=== PATIENT | female | born 1975 | race Two or more races ===

== ENCOUNTER 2016-10-12 17:23 | Emergency (ER) | payer MEDICAID ==
[~2016-10-12] VITALS: Ht 152.4 cm; Wt 48.5 kg
[~2016-10-12 17:23] MED LIST: ATORVASTATIN CA10 MG ORAL; BACTRIM DS TAB1 EAC1 ORAL; COLACE100 MG ORAL; FEOSOL325 MG ORAL; GLUCAGON W/DILUE1 MG *; HUMALOG100 UNIT/4 SUBQ; HUMULIN R100 UNIT/1 SUBQ; INSULIN; LEVEMIR FL100 UNIT/1 SQ; LEVEMIR FL100 UNIT/1 SUBQ; LEVEMIR100 UNIT/1 SUBQ; LEVOTHYROXINE112 MCG ORAL; LEVOTHYROXINE75 MCG ORAL; NOVOLIN N100 UNIT/1 SUBQ; NOVOLIN R100 UNIT/1 SUBQ; NOVOLOG100 UNIT/3 SUBQ; NOVOLOG100 UNITS1 SUBQ; ORTHO NOVUM ORAL; PRENATAL FORMU1 EAC2 ORAL; YAZ 28 TABLET1 EACH ORAL; insulin n SUBQ
[2016-10-12] MEDS ORDERED: LANTUS SOL100 UNIT/1 SUBQ (17:36)
[2016-10-12 18:03] LABS: APPEARANCE,URINE CLOUDY; KETONES,URINE NEGATIVE (NEGATIVE); LEUKOCYTE ESTERASE ,URINE NEGATIVE (NEGATIVE); NITRITE,URINE NEGATIVE (NEGATIVE); PH,URINE 6 (4.5-8.0); PROTEIN,URINE 3+ (NEGATIVE); UROBILINOGEN,URINE NORMAL MG/DL (0.0-1.0)
[2016-10-12 18:05] LABS: BACTERIA,URINE OCCASIONAL /HPF; RBC,URINE TNTC /HPF (0 - 2); SQUAMOUS EPITHELIAL CELL,UR OCCASIONAL /LPF (NONE/OCC); WBC,URINE 0 /HPF (0 - 2)
[2016-10-12] MEDS ORDERED: IBUPROFEN600 MG ORAL (19:48)
[2016-10-12 19:57] VITALS: BP 112/73
--- NOTE | 2016-10-12 22:58 | Emergency Room Report ---
History of Present Illness General Chief Complaint: Female Urogenital Problems Present Illness HPI The pt is a 41 yo F presenting for vaginal bleeding which occurred 4 days prior and has been continuous and heavy. The pt states her LNMP was 3 months prior which is not normal for her. The pt states she has saturated 7 sanitary pads with blood daily. Pt also reports 7/10 dull ache to lower abdomen. Pt denies other vaginal DC or passing of tissue. The pt denies dysuria, flank pain , N, V, F, chills, LANE, dizziness, fatigue, CP, SOB Allergies: Coded Allergies: No Known Allergies (Verified , 09/02/07) Patient History Past Medical History: see triage record Pertinent Family History: none Last Menstrual Period: 06/2016 : 5 Para: 4 Reviewed Nursing Documentation: PMH: Agreed, PSxH: Agreed Nursing Documentation-PMH Hx Cardiac Problems: No Hx Hypertension: Yes Hx Diabetes: Yes Hx Cancer: No Hx Gastrointestinal Problems: No Hx Neurological Problems: No Hx Cerebrovascular Accident: No Hx Transient Ischemic Attacks: No Hx Dementia: No Hx Alzheimer's Disease: No Hx Parkinson's Disease: No Hx Meningitis: No Hx Encephalitis: No Hx Seizures: Yes Hx Epilepsy: No Hx Multiple Sclerosis: No Hx Cerebral Palsy: No Hx Amyotrophic Lat Sclerosis: No Hx Guillian-[place] Syndrome: No Hx Paralysis: No Hx Peripheral Neuropathy: No Hx Spinal Cord Injury: No Hx Head Trauma: Yes - Fell in the shower and hit her head one day prior to admission Hx Traumatic Brain Injury: No Hx Memory Loss: No Hx Concentration Difficulty: Yes Hx Speech Problem: No Hx Tremors: No Hx Vertigo: No Hx Dizziness: Yes Hx Syncope: No Hx Headaches: Yes Hx Aphasia: No Hx Dysphasia: No Hx Numbness: No Hx Weakness: No Hx Fatigue: Yes Hx Neurologic Surgery: No Hx Brain Shunt: No Review of Systems All Other Systems: negative except mentioned in HPI Physical Exam Vital Signs Date Time Temp Pulse Resp B/P Pulse Ox O2 Delivery O2 Flow Rate FiO2 10/12/16 17:27 98.2 85 16 108/51 100 Room Air Sp02 EP Interpretation: reviewed, normal General Appearance: no apparent distress, alert, GCS 15, non-toxic Head: normocephalic, atraumatic Gastrointestinal: normal bowel sounds, soft, no mass, non-distended, no guarding, no rebound, tenderness - TTP over suprapubic region Musculoskeletal: back normal, gait/station normal, normal range of motion, non- tender Neurologic: alert, oriented x3, responsive, motor strength/tone normal, sensory intact, speech normal Psychiatric: judgement/insight normal, memory normal, mood/affect normal, no suicidal/homicidal ideation Skin: normal color, no rash, warm/dry, well hydrated Medical Decision Making PA Attestation Dr. juna is my supervising physician. Patient management was discussed with my supervising physician Diagnostic Impression: Primary Impression: DUB (dysfunctional uterine bleeding) ER Course The pt is a 41 yo F presenting for vaginal bleeding which occurred 4 days prior and has been continuous and heavy. Differential diagnosis considered but not limited to: UTI, vaginitis, pyelonephritis, PID, , uterine fibroids, ovarian cyst, DUB PE: Vitals WNL. NAD Abd: TTP over suprapubic region. Otherwise unremarkable. No CVA tenderness. UA shows TNTC RBC and 5+ occult blood. No signs of infection Pelvic US shows only blood which is likely consistent with menstruation. Pt DC'ed home with karishma and will FU with PMD and OBGYN. ER precautions given Laboratory Tests Test 10/12/16 17:41 Urine Color Red Urine Appearance Cloudy Urine pH 6 (4.5-8.0) Urine Specific [place] 1.010 (1.005-1.035) Urine Protein 3+ (NEGATIVE) H Urine Glucose (UA) 4+ (NEGATIVE) H Urine Ketones Negative (NEGATIVE) Urine Occult Blood 5+ (NEGATIVE) H Urine Nitrite Negative (NEGATIVE) Urine Bilirubin Negative (NEGATIVE) Urine Urobilinogen Normal MG/DL (0.0-1.0) Urine Leukocyte Esterase Negative (NEGATIVE) Urine RBC Tntc /HPF (0 - 2) H Urine WBC 0 /HPF (0 - 2) Urine Squamous Epithelial Cells Occasional /LPF Urine Bacteria Occasional /HPF (NONE) Urine HCG, Qualitative Negative Lab Results Impression UA shows TNTC RBC and 5+ occult blood CT/MRI/US Diagnostic Results CT/MRI/US Diagnostic Results : Imaging Test Ordered: Pelvic US Impression Moderate amount of blood within the endocervical canal. This may be part of menstruation. Followup and clinical correlation suggested. Last Vital Signs Date Time Temp Pulse Resp B/P Pulse Ox O2 Delivery O2 Flow Rate FiO2 10/12/16 19:57 82 12 112/73 100 Room Air 10/12/16 19:57 97.4 Status: improved Disposition: HOME, SELF-CARE Condition: Improved Scripts Ibuprofen* (MOTRIN*) 600 Mg Tablet 600 MG ORAL Q8H Y for For Pain, #30 TAB 0 Refills Prov: LAURA CURRAN 10/12/16 Patient Instructions: Dysfunctional Uterine Bleeding Additional Instructions: I discussed my findings with the patient. All questions and concerns have been answered. Treatment and medication compliance have been addressed. I advised the patient that they need to follow up with PMD in 3-5 days. Return to ED if symptoms worsen, new symptoms arise, or if needed for any reason. Patient verbalized understanding of discharge instructions. The patient will followup with ETHNOARCHAEOLOGIST as soon as possible LAURA CURRAN Oct 12, 2016 22:58
--- NOTE | 2016-10-13 14:35 | Diagnostic Imaging Report ---
Indication:Lower abdominal and pelvic pain Technique: Grayscale and duplex Doppler imaging of the pelvis performed utilizing a transabdominal scan and endovaginal scan. Comparison: None Findings: There is heterogeneous blood clot suspected within the endocervical canal. Patient is actively bleeding. The endometrium above this appears normal measuring about 6 mm. The uterus is normal in appearance and measures 9.4 x 5.3 x 5 CM. Both ovaries are demonstrated and show Doppler evidence of blood flow. There is a trace amount of free fluid. The right ovary measures 2.1 x 1.8 1.2 cm. Left ovary 1.6 x 1 x 1 cm. Impression: Moderate amount of blood within the endocervical canal. This may be part of menstruation. Followup and clinical correlation suggested.
== END 2016-10-12 20:03 | disposition home or self-care (01) ==
LOC: EMR 19:17
DX: N93.8 Other specified abnormal uterine and vaginal bleeding (principal); E11.9 Type 2 diabetes mellitus without complications; I10 Essential (primary) hypertension
CPT/HCPCS: 76830; 76856; 81003; 81025; 99283

== ENCOUNTER 2016-11-02 17:52 | Emergency (ER) | payer MEDICAID ==
[~2016-11-02] VITALS: Ht 157.5 cm; Wt 54.4 kg
[~2016-11-02 17:52] MED LIST changes: +IBUPROFEN600 MG ORAL; +LANTUS SOL100 UNIT/1 SUBQ
[2016-11-02 18:25] VITALS: BP 96/40
[2016-11-02 20:08] LABS: MEAN CORPUSCULAR HGB CONC 29.8 G/DL (32.0-36.0); MEAN CORPUSCULAR VOLUME 67 FL (80-99); MEAN PLATELET VOLUME 6.8 FL (6.5-10.1); PLATELET COUNT 245 K/UL (150-450); RED BLOOD COUNT 3.01 M/UL (4.20-5.40); WHITE BLOOD COUNT 4.2 K/UL (4.8-10.8)
[2016-11-02 20:33] LABS: ANION GAP 14 (5-15); CALCIUM 8.8 mg/dL (8.6-10.2); CARBON DIOXIDE 24 mEQ/L (20-30); CHLORIDE 101 mEQ/L (98-107); CREATININE 0.6 mg/dL (0.5-0.9); GLOMERULAR FILTRATION RATE > 60 mL/min (>60); HEMOLYSIS 27; POTASSIUM 4.2 mEQ/L (3.4-4.9); SODIUM 139 mEQ/L (135-145)
[2016-11-02 20:46] VITALS: BP 123/60
[2016-11-02 21:29] LABS: BAND NEUTROPHILS % (MANUAL) 1 % (0-8); BASOPHILS % (MANUAL) 3 % (0-2); EOSINOPHILS % (MANUAL) 4 % (0-3); LYMPHOCYTES % (MANUAL) 42 % (20-45); NEUTROPHILS % (MANUAL) 46 % (45-75); PLATELET ESTIMATE ADEQUATE; TOTAL CELLS COUNTED 100
[2016-11-02 21:30] LABS: PLATELET MORPHOLOGY NORMAL
[2016-11-02 21:31] LABS: ANISOCYTOSIS 2+; HYPOCHROMASIA 3+; POLYCHROMASIA 2+
[2016-11-02 21:32] LABS: TARGET CELLS OCCASIONAL
--- NOTE | 2016-11-02 21:52 | Emergency Room Report ---
History of Present Illness General Chief Complaint: General Complaint Source: Patient (HUMZA BOWEN D.O.) Present Illness HPI Patient present with complaints of general weakness She reports that she has had blood transfusion the past and was told by her clinic that she required another transfusion Denies any headache or visual changes Denies any short of breath denies any back or flank pain denies any vomiting or dysuria patient has had abnormal vaginal bleeding Which has been the source previously However her last menstrual cycle was 8 days ago (HUMZA BOWEN D.O.) Allergies: Coded Allergies: No Known Allergies (Verified , 09/02/07) Patient History Past Medical History: see triage record Pertinent Family History: none Reviewed Nursing Documentation: PMH: Agreed, PSxH: Agreed (HUMZA BOWEN D.O.) Nursing Documentation-PMH Past Medical History: No History, Except For Hx Cardiac Problems: No - Anemia Hx Hypertension: Yes Hx Diabetes: Yes Hx Cancer: No Hx Gastrointestinal Problems: No Hx Neurological Problems: No Hx Cerebrovascular Accident: No Hx Transient Ischemic Attacks: No Hx Dementia: No Hx Alzheimer's Disease: No Hx Parkinson's Disease: No Hx Meningitis: No Hx Encephalitis: No Hx Seizures: Yes Hx Epilepsy: No Hx Multiple Sclerosis: No Hx Cerebral Palsy: No Hx Amyotrophic Lat Sclerosis: No Hx Guillian-[place] Syndrome: No Hx Paralysis: No Hx Peripheral Neuropathy: No Hx Spinal Cord Injury: No Hx Head Trauma: Yes - Fell in the shower and hit her head one day prior to admission Hx Traumatic Brain Injury: No Hx Memory Loss: No Hx Concentration Difficulty: Yes Hx Speech Problem: No Hx Tremors: No Hx Vertigo: No Hx Dizziness: Yes Hx Syncope: No Hx Headaches: Yes Hx Aphasia: No Hx Dysphasia: No Hx Numbness: No Hx Weakness: No Hx Fatigue: Yes Hx Neurologic Surgery: No Hx Brain Shunt: No (HUMZA BOWEN D.O.) Review of Systems All Other Systems: negative except mentioned in HPI (HUMZA BOWEN D.O.) Physical Exam Vital Signs Date Time Temp Pulse Resp B/P Pulse Ox O2 Delivery O2 Flow Rate FiO2 11/02/16 18:15 98.2 85 14 95/55 100 Room Air Sp02 EP Interpretation: reviewed, normal General Appearance: well appearing, no apparent distress Head: normocephalic, atraumatic Eyes: bilateral eye EOMI, bilateral eye PERRL ENT: hearing grossly normal, normal pharynx, TMs + canals normal, uvula midline Neck: full range of motion, supple, no meningismus, no bony tend Respiratory: lungs clear, normal breath sounds, no rhonchi, no respiratory distress, no retraction, no accessory muscle use Cardiovascular #1: normal peripheral pulses, regular rate, rhythm, no edema, no gallop, no JVD, no murmur Gastrointestinal: normal bowel sounds, non tender, soft, no mass, no organomegaly, non-distended, no guarding, no hernia, no pulsatile mass, no rebound Musculoskeletal: normal inspection Neurologic: oriented x3, responsive, mold repair technician III-XII nml as tested, motor strength/ tone normal, sensory intact Psychiatric: mood/affect normal Skin: no rash, palpation normal, other - Patient has some noticeable pallor Lymphatic: normal inspection, no adenopathy (HUMZA BOWEN D.O.) Medical Decision Making Diagnostic Impression: Primary Impression: Anemia ER Course Patient had initial blood work obtained for evaluation Hemoglobin count is low at 6 Patient however is hemodynamically stable Heart rate and blood pressure appropriate Patient has had a recent hospitalization for this Therefore this time I do not feel that further inpatient workup was required patient was provided with 2 units of packed red blood cells here observed I did have a discussion with her regarding the need for close outpatient followup Labs Test 11/02/16 20:00 White Blood Count 4.2 K/UL (4.8-10.8) Red Blood Count 3.01 M/UL (4.20-5.40) Hemoglobin 6.0 G/DL (12.0-16.0) Hematocrit 20.2 % (37.0-47.0) Mean Corpuscular Volume 67 FL (80-99) Mean Corpuscular Hemoglobin 20.0 PG (27.0-31.0) Mean Corpuscular Hemoglobin Concent 29.8 G/DL (32.0-36.0) Red Cell Distribution Width 18.0 % (11.6-14.8) Platelet Count 245 K/UL (150-450) Mean Platelet Volume 6.8 FL (6.5-10.1) Neutrophils (%) (Auto) % (45.0-75.0) Lymphocytes (%) (Auto) % (20.0-45.0) Monocytes (%) (Auto) % (1.0-10.0) Eosinophils (%) (Auto) % (0.0-3.0) Basophils (%) (Auto) % (0.0-2.0) Differential Total Cells Counted 100 Neutrophils % (Manual) 46 % (45-75) Lymphocytes % (Manual) 42 % (20-45) Monocytes % (Manual) 4 % (1-10) Eosinophils % (Manual) 4 % (0-3) Basophils % (Manual) 3 % (0-2) Band Neutrophils 1 % (0-8) Platelet Estimate Adequate Platelet Morphology Normal Polychromasia 2+ Hypochromasia 3+ Anisocytosis 2+ Target Cells Occasional Sodium Level 139 mEQ/L (135-145) Potassium Level 4.2 mEQ/L (3.4-4.9) Chloride Level 101 mEQ/L (98-107) Carbon Dioxide Level 24 mEQ/L (20-30) Anion Gap 14 (5-15) Blood Urea Nitrogen 10 mg/dL (7-23) Creatinine 0.6 mg/dL (0.5-0.9) Estimat Glomerular Filtration Rate > 60 mL/min (>60) Glucose Level 108 mg/dL (74-106) Calcium Level 8.8 mg/dL (8.6-10.2) (HUMZA BOWEN D.O.) ER Course Patient signed out to me. She received 2 units of blood here. Vitals stable. We'll discharge home per Dr. Bowen's instruction. (DESTINEY JALLOH M.D.) Rhythm Strip Diag. Results EP Interpretation: yes Rate: 88 Rhythm: NSR, no PVC's, no ectopy (HUMZA BOWEN D.O.) Last Vital Signs Date Time Temp Pulse Resp B/P Pulse Ox O2 Delivery O2 Flow Rate FiO2 11/02/16 20:46 80 19 123/60 98 Room Air 11/02/16 18:15 98.2 Status: improved (HUMZA BOWEN D.O.) Status: improved (DESTINEY JALLOH M.D.) Disposition: HOME, SELF-CARE Condition: Improved Scripts Ferrous Sulfate* (FERROUS SULFATE*) 325 Mg Tablet 325 MG ORAL TWICE A DAY, #60 TAB 0 Refills Prov: DESTINEY JALLOH M.D. 11/03/16 Referrals: NOT CHOSEN IPA/,REFERRING (PCP) Additional Instructions: Patient is provided with the discharge instructions notified to follow up with primary doctor in the next 2-3 days otherwise return to the er with any worsening symptoms. HUMZA BOWEN D.O. Nov 02, 2016 21:52 DESTINEY JALLOH M.D. Nov 03, 2016 00:51
[2016-11-02 23:05] VITALS: BP 112/47
[2016-11-03] MEDS ORDERED: FERROUS SULFAT325 MG ORAL (00:51)
[2016-11-03 01:20] VITALS: BP 146/77
[2016-11-03 03:14] VITALS: BP 157/85
[2016-11-03 03:48] VITALS: BP 157/85
[2016-11-04 11:51] LABS: OTHERS PATHOLOGIST COMMENT
== END 2016-11-03 04:02 | disposition home or self-care (01) ==
LOC: EMR 19:00
DX: D64.9 Anemia, unspecified (principal); E11.9 Type 2 diabetes mellitus without complications; I10 Essential (primary) hypertension
CPT/HCPCS: 36415; 36430; 80048; 85007; 85025; 86850; 86900; 86901; 86920; 99284; P9016

== ENCOUNTER 2017-01-14 22:15 | Inpatient (IN) | payer MEDICAID ==
[~2017-01-14] VITALS: Ht 144.8 cm; Wt 54.4 kg
[~2017-01-14 22:15] MED LIST changes: +FERROUS SULFAT325 MG ORAL
[2017-01-14] MEDS ORDERED: Ketorolac 30mg Inj IV ONE (22:45)
--- NOTE | 2017-01-14 22:55 | Emergency Room Report ---
History of Present Illness General Chief Complaint: Female Urogenital Problems Source: Patient Present Illness HPI Patient presents with several days of vaginal bleeding and passing clots. She feels dizzy when she stands up it is worse this morning. She's been taking iron at home. She's used sat 5 pads today. She was evaluated in September and transfused several months ago in October in the Emergency Department. She was told this wouldn't come back again. She received no hormonal treatment at that time. Ultrasound was done in September. She has not bled since that time. She is taking iron. There is notation that she was hospitalized, however, I cannot find documentation of this. She denies any fevers, chills, chest pain. She does have some told suprapubic pain on it's intermittent. Did not take any medication for this. Pain rated 8/ 10, cramping, not radiating. She is diabetic and sugars have been slightly high. She takes insulin. She was hospitalized January 2015 for hypoglycemia. There is no notation of bleeding at that time. She wants to be discharged tonight because she has a meeting with immigration tomorrow. Ultrasound 10/13/16: Findings: There is heterogeneous blood clot suspected within the endocervical canal. Patient is actively bleeding. The endometrium above this appears normal measuring about 6 mm. The uterus is normal in appearance and measures 9.4 x 5.3 x 5 CM. Both ovaries are demonstrated and show Doppler evidence of blood flow. There is a trace amount of free fluid. The right ovary measures 2.1 x 1.8 1.2 cm. Left ovary 1.6 x 1 x 1 cm. Impression: Moderate amount of blood within the endocervical canal. This may be part of menstruation. Followup and clinical correlation suggested. Allergies: Coded Allergies: No Known Allergies (Verified , 09/02/07) Patient History Past Medical History: see triage record, old chart reviewed, DM Social History Narrative - plan to meet with Immigration tomorrow Last Menstrual Period: Menopause Now: No Reviewed Nursing Documentation: PMH: Agreed, PSxH: Agreed Nursing Documentation-PMH Past Medical History: No History, Except For Hx Cardiac Problems: No - Anemia Hx Hypertension: Yes Hx Diabetes: Yes - Takes Lantus Hx Cancer: No Hx Gastrointestinal Problems: No Hx Neurological Problems: No Hx Cerebrovascular Accident: No Hx Transient Ischemic Attacks: No Hx Dementia: No Hx Alzheimer's Disease: No Hx Parkinson's Disease: No Hx Meningitis: No Hx Encephalitis: No Hx Seizures: Yes Hx Epilepsy: No Hx Multiple Sclerosis: No Hx Cerebral Palsy: No Hx Amyotrophic Lat Sclerosis: No Hx Guillian-[place] Syndrome: No Hx Paralysis: No Hx Peripheral Neuropathy: No Hx Spinal Cord Injury: No Hx Head Trauma: Yes - Fell in the shower and hit her head one day prior to admission Hx Traumatic Brain Injury: No Hx Memory Loss: No Hx Concentration Difficulty: Yes Hx Speech Problem: No Hx Tremors: No Hx Vertigo: No Hx Dizziness: Yes Hx Syncope: No Hx Headaches: Yes Hx Aphasia: No Hx Dysphasia: No Hx Numbness: No Hx Weakness: No Hx Fatigue: Yes Hx Neurologic Surgery: No Hx Brain Shunt: No Review of Systems All Other Systems: negative except mentioned in HPI Physical Exam Vital Signs Date Time Temp Pulse Resp B/P Pulse Ox O2 Delivery O2 Flow Rate FiO2 01/14/17 22:32 97.9 77 16 83/53 100 Room Air Sp02 EP Interpretation: reviewed, normal General Appearance: well appearing, no apparent distress, GCS 15, thin Head: normocephalic Eyes: bilateral eye PERRL, bilateral eye conjunctivae pale ENT: moist mucus membranes Neck: supple Respiratory: lungs clear, normal breath sounds Cardiovascular #1: regular rate, rhythm Cardiovascular #2: 2+ radial (R) Gastrointestinal: normal inspection, normal bowel sounds, non tender, no mass, non-distended Genitourinary: no CVA tenderness Musculoskeletal: back normal, gait/station normal, normal range of motion Neurologic: alert, oriented x3, grossly normal Psychiatric: mood/affect normal Skin: pallor Medical Decision Making Diagnostic Impression: Primary Impression: Menopausal menorrhagia Additional Impressions: Anemia Qualified Codes: D50.0 - Iron deficiency anemia secondary to blood loss ( chronic) Hyperglycemia UTI (lower urinary tract infection) ER Course Patient presents with heavy vaginal bleeding. She was evaluated and transfused in September. She is symptomatic at this time. DDX; anemia, fibroid, menorrhagia , coagulopathy, occult infection. Emergent evaluation with labs, CXR. She will receive hydration. In addition, her glucose needs to be evaluated. Ultrasound reviewed - no evidence of fibroid. Evaluation with critical anemia. Blood ordered. Glucose significantly high. Repeated after boluses better. Urine with UTI - antibiotics begun. Admit med Dr. Avila. Dr. Dominguez called and stated he would contact Dr. Pascal, extractions technician for [employer]. Laboratory Tests Test 01/14/17 23:09 White Blood Count 6.1 K/UL (4.8-10.8) Red Blood Count 3.17 M/UL (4.20-5.40) L Hemoglobin 6.9 G/DL (12.0-16.0) *L Hematocrit 22.7 % (37.0-47.0) L Mean Corpuscular Volume 72 FL (80-99) L Mean Corpuscular Hemoglobin 21.9 PG (27.0-31.0) L Mean Corpuscular Hemoglobin Concent 30.5 G/DL (32.0-36.0) L Red Cell Distribution Width 19.3 % (11.6-14.8) H Platelet Count 542 K/UL (150-450) H Mean Platelet Volume 5.8 FL (6.5-10.1) L Neutrophils (%) (Auto) % (45.0-75.0) Lymphocytes (%) (Auto) % (20.0-45.0) Monocytes (%) (Auto) % (1.0-10.0) Eosinophils (%) (Auto) % (0.0-3.0) Basophils (%) (Auto) % (0.0-2.0) Differential Total Cells Counted 100 Neutrophils % (Manual) 71 % (45-75) Lymphocytes % (Manual) 20 % (20-45) Monocytes % (Manual) 2 % (1-10) Eosinophils % (Manual) 2 % (0-3) Basophils % (Manual) 3 % (0-2) H Band Neutrophils 2 % (0-8) Platelet Estimate Adequate Platelet Morphology Normal Poikilocytosis 1+ Anisocytosis 1+ Ovalocytes 1+ Stomatocytes 1+ Prothrombin Time 9.4 SEC (9.30-11.50) Prothrombin Time INR 0.9 (0.9-1.1) PTT 22 SEC (23-33) L Urine Color Red Urine Appearance Cloudy Urine pH 5 (4.5-8.0) Urine Specific [place] 1.015 (1.005-1.035) Urine Protein 3+ (NEGATIVE) H Urine Glucose (UA) 4+ (NEGATIVE) H Urine Ketones 1+ (NEGATIVE) H Urine Occult Blood 5+ (NEGATIVE) H Urine Nitrite Negative (NEGATIVE) Urine Bilirubin Negative (NEGATIVE) Urine Urobilinogen Normal MG/DL (0.0-1.0) Urine Leukocyte Esterase 3+ (NEGATIVE) H Urine RBC Tntc /HPF (0 - 2) H Urine WBC Tntc /HPF (0 - 2) H Urine Squamous Epithelial Cells Moderate /LPF (NONE/OCC) H Urine Bacteria Moderate /HPF (NONE) H Urine HCG, Qualitative Negative Sodium Level 130 mEQ/L (135-145) L Potassium Level 3.7 mEQ/L (3.4-4.9) Chloride Level 92 mEQ/L (98-107) L Carbon Dioxide Level 26 mEQ/L (20-30) Anion Gap 12 (5-15) Blood Urea Nitrogen 18 mg/dL (7-23) Creatinine 1.0 mg/dL (0.5-0.9) H Estimate Glomerular Filtration Rate > 60 mL/min (>60) Glucose Level 317 mg/dL (74-106) H Calcium Level 8.9 mg/dL (8.6-10.2) Total Bilirubin < 0.2 mg/dL (0.0-1.2) Aspartate Amino Transferase (AST) 14 U/L (5-40) Alanine Aminotransferase (ALT) 10 U/L (3-33) Alkaline Phosphatase 118 U/L (35-104) H Total Protein 8.0 g/dL (6.6-8.7) Albumin 3.5 g/dL (3.5-5.2) Globulin 4.5 g/dL Albumin/Globulin Ratio 0.7 (1.0-2.7) L Lipase 32 U/L (< 60) Rhythm Strip Diag. Results EP Interpretation: yes Rhythm: NSR, no PVC's, no ectopy Last Vital Signs Date Time Temp Pulse Resp B/P Pulse Ox O2 Delivery O2 Flow Rate FiO2 01/14/17 22:32 97.9 77 16 83/53 100 Room Air Status: improved Disposition: ADMITTED INPATIENT Condition: Serious Referrals: NOT CHOSEN IPA/,REFERRING (PCP) Wade Rivas M.D. Jan 14, 2017 22:55
[2017-01-14 23:32] LABS: MEAN CORPUSCULAR HEMOGLOBIN 21.9 PG (27.0-31.0); MEAN CORPUSCULAR HGB CONC 30.5 G/DL (32.0-36.0); MEAN CORPUSCULAR VOLUME 72 FL (80-99); MEAN PLATELET VOLUME 5.8 FL (6.5-10.1); PLATELET COUNT 542 K/UL (150-450); RED BLOOD COUNT 3.17 M/UL (4.20-5.40); RED CELL DISTRIBUTION WIDTH 19.3 % (11.6-14.8); WHITE BLOOD COUNT 6.1 K/UL (4.8-10.8)
[2017-01-14 23:37] VITALS: BP_SYST 119; BP_SYST 98; BP_DIAS 53; BP_DIAS 63
[2017-01-14 23:41] LABS: KETONES,URINE 1+ (NEGATIVE); LEUKOCYTE ESTERASE ,URINE 3+ (NEGATIVE); NITRITE,URINE NEGATIVE (NEGATIVE); PH,URINE 5 (4.5-8.0); PROTEIN,URINE 3+ (NEGATIVE); UROBILINOGEN,URINE NORMAL MG/DL (0.0-1.0)
[2017-01-14 23:42] LABS: INR 0.9 (0.9-1.1); PROTHROMBIN TIME 9.4 SEC (9.30-11.50)
[2017-01-14 23:50] LABS: ALANINE AMINOTRANSFERASE 10 U/L (3-33); ALBUMIN/GLOBULIN RATIO 0.7 (1.0-2.7); ANION GAP 12 (5-15); ASPARTATE AMINO TRANSFERASE 14 U/L (5-40); CALCIUM 8.9 mg/dL (8.6-10.2); CARBON DIOXIDE 26 mEQ/L (20-30); CHLORIDE 92 mEQ/L (98-107); GLOMERULAR FILTRATION RATE > 60 mL/min (>60); HEMOLYSIS 3; LIPASE 32 U/L (< 60); POTASSIUM 3.7 mEQ/L (3.4-4.9); SODIUM 130 mEQ/L (135-145)
[2017-01-15] VITALS (11 sets, daily range): BP systolic 105–163; BP diastolic 61–88
[2017-01-15 00:05] LABS: APPEARANCE,URINE CLOUDY; BACTERIA,URINE MODERATE /HPF; RBC,URINE TNTC /HPF (0 - 2); SQUAMOUS EPITHELIAL CELL,UR MODERATE /LPF (NONE/OCC); WBC,URINE TNTC /HPF (0 - 2)
[2017-01-15 01:57] LABS: BAND NEUTROPHILS % (MANUAL) 2 % (0-8); BASOPHILS % (MANUAL) 3 % (0-2); EOSINOPHILS % (MANUAL) 2 % (0-3); LYMPHOCYTES % (MANUAL) 20 % (20-45); NEUTROPHILS % (MANUAL) 71 % (45-75); PLATELET ESTIMATE ADEQUATE; PLATELET MORPHOLOGY NORMAL; TOTAL CELLS COUNTED 100
[2017-01-15 01:58] LABS: OVALOCYTES 1+; STOMATOCYTES 1+
[2017-01-15 01:59] LABS: ANISOCYTOSIS 1+; POIKILOCYTOSIS 1+
[2017-01-15] MEDS ORDERED: cefTRIAXone 1 GM in D5W 55 ML IVPB ONE (05:30)
[2017-01-15 06:05] LABS: BASOPHILS % (AUTO) 0.8 % (0.0-2.0); EOSINOPHILS % (AUTO) 4.2 % (0.0-3.0); MEAN CORPUSCULAR HEMOGLOBIN 24.2 PG (27.0-31.0); MEAN CORPUSCULAR HGB CONC 30.9 G/DL (32.0-36.0); MEAN CORPUSCULAR VOLUME 78 FL (80-99); MEAN PLATELET VOLUME 5.8 FL (6.5-10.1); PLATELET COUNT 457 K/UL (150-450); RED BLOOD COUNT 4.14 M/UL (4.20-5.40); WHITE BLOOD COUNT 5.4 K/UL (4.8-10.8)
[2017-01-15 06:27] LABS: ALANINE AMINOTRANSFERASE 5 U/L (3-33); ALBUMIN/GLOBULIN RATIO 0.8 (1.0-2.7); ANION GAP 10 (5-15); ASPARTATE AMINO TRANSFERASE 11 U/L (5-40); CALCIUM 8.1 mg/dL (8.6-10.2); CARBON DIOXIDE 24 mEQ/L (20-30); CHLORIDE 101 mEQ/L (98-107); CREATININE 0.5 mg/dL (0.5-0.9); GLOMERULAR FILTRATION RATE > 60 mL/min (>60); HEMOLYSIS 0; POTASSIUM 3.6 mEQ/L (3.4-4.9); SODIUM 135 mEQ/L (135-145); TOTAL PROTEIN 6.5 g/dL (6.6-8.7)
[2017-01-15] MEDS ORDERED: Miralax 17gm pkt ORAL PRN (06:45)
[2017-01-15] MEDS ORDERED: Mylanta II UD 30ml ORAL PRN (06:45)
[2017-01-15] MEDS ORDERED: Zolpidem 5mg tab ORAL PRN (06:45)
[2017-01-15] MEDS ORDERED: Morphine Sulfate 2mg/ml Inj IVP PRN (06:45)
[2017-01-15] MEDS ORDERED: LORazepam Inj 2mg/ml 1ml IV PRN (06:45)
[2017-01-15] MEDS ORDERED: Premarin Inj IV ONE ×2 (07:30→16:30)
[2017-01-15 10:24] LABS: INR 0.9 (0.9-1.1); PROTHROMBIN TIME 9.4 SEC (9.30-11.50)
[2017-01-15 10:54] LABS: RETICULOCYTE COUNT 0.5 % (0.0-2.0)
--- NOTE | 2017-01-15 14:58 | Consultation ---
History of Present Illness General Date patient seen: Jan 15, 2017 Chief Complaint: Female Urogenital Problems Present Illness HPI 41 year old female presents with several days of vaginal bleeding and passing clots. She feels dizzy when she stands up it is worse this morning. She's been taking iron at home. She had symptomatic anemia and admitted for further work up. Allergies: Coded Allergies: No Known Allergies (Verified , 09/02/07) Medication History Scheduled Atorvastatin Calcium* (Lipitor*), 10 MG ORAL QHS, (Reported) Ferrous Sulfate* (Ferrous Sulfate*), 325 MG ORAL TWICE A DAY Insulin Glargine (Lantus), 0 SUBQ BEDTIME, (Reported) Levothyroxine Sodium* (Levothyroxine Sodium*), 112 MCG ORAL DAILY@0630 Vits W-Ca,Fe,Fa(<1MG) ( Formula), 1 TAB ORAL DAILY Scheduled PRN Ibuprofen* (Motrin*), 600 MG ORAL Q8H PRN for For Pain Miscellaneous Medications Insulin Aspart* (Novolog*), 0 SUBQ, (Reported) Patient History Healthcare decision maker Resuscitation status Advanced Directive on File Past Medical/Surgical History Past Medical/Surgical History: (1) DM (diabetes mellitus) (2) Fibroid Review of Systems All Other Systems: negative except mentioned in HPI Physical Exam General Appearance: cachetic HEENT: normocephalic, atraumatic Abdomen: normal bowel sounds Last 24 Hour Vital Signs Date Time Temp Pulse Resp B/P Pulse Ox O2 Delivery O2 Flow Rate FiO2 01/15/17 11:41 98.2 72 20 163/88 100 Room Air 01/15/17 08:06 97.7 69 20 158/86 100 Room Air 01/15/17 06:44 98.0 67 18 144/84 100 Room Air 01/15/17 06:41 98.0 67 18 144/84 100 Room Air 01/15/17 06:05 98.0 66 18 01/15/17 06:05 98.0 66 18 159/86 100 Room Air 01/15/17 05:06 97.9 68 18 155/82 100 Room Air 01/15/17 03:50 97.7 69 18 01/15/17 03:37 97.7 67 18 01/15/17 03:37 97.7 67 18 138/74 100 Room Air 01/15/17 02:52 71 18 133/76 100 Room Air 01/15/17 01:47 97.9 69 16 01/15/17 01:47 97.9 69 16 124/65 100 Room Air 01/15/17 01:32 98.0 70 16 01/15/17 01:32 98.0 70 16 105/61 100 Room Air 01/15/17 00:22 97.9 01/14/17 23:37 97.9 81 16 119/63 100 Room Air 01/14/17 22:32 97.9 77 16 83/53 100 Room Air Intake and Output 01/14/17 01/15/17 19:00 07:00 Intake Total 1500 ml Output Total 100 ml Balance 1400 ml IV Total 1000 ml Blood Product 500 ml Output Urine Total 100 ml # Sanitary Pads 3 Laboratory Tests Test 01/14/17 23:09 01/15/17 05:32 01/15/17 05:39 01/15/17 09:00 White Blood Count 6.1 K/UL (4.8-10.8) 5.4 K/UL (4.8-10.8) Red Blood Count 3.17 M/UL (4.20-5.40) L 4.14 M/UL (4.20-5.40) L Hemoglobin 6.9 G/DL (12.0-16.0) *L 10.0 G/DL (12.0-16.0) #L Hematocrit 22.7 % (37.0-47.0) L 32.4 % (37.0-47.0) #L Mean Corpuscular Volume 72 FL (80-99) L 78 FL (80-99) #L Mean Corpuscular Hemoglobin 21.9 PG (27.0-31.0) L 24.2 PG (27.0-31.0) L Mean Corpuscular Hemoglobin Concent 30.5 G/DL (32.0-36.0) L 30.9 G/DL (32.0-36.0) L Red Cell Distribution Width 19.3 % (11.6-14.8) H 21.0 % (11.6-14.8) H Platelet Count 542 K/UL (150-450) H 457 K/UL (150-450) H Mean Platelet Volume 5.8 FL (6.5-10.1) L 5.8 FL (6.5-10.1) L Neutrophils (%) (Auto) % (45.0-75.0) 66.0 % (45.0-75.0) Lymphocytes (%) (Auto) % (20.0-45.0) 21.0 % (20.0-45.0) Monocytes (%) (Auto) % (1.0-10.0) 8.0 % (1.0-10.0) Eosinophils (%) (Auto) % (0.0-3.0) 4.2 % (0.0-3.0) H Basophils (%) (Auto) % (0.0-2.0) 0.8 % (0.0-2.0) Differential Total Cells Counted 100 Neutrophils % (Manual) 71 % (45-75) Lymphocytes % (Manual) 20 % (20-45) Monocytes % (Manual) 2 % (1-10) Eosinophils % (Manual) 2 % (0-3) Basophils % (Manual) 3 % (0-2) H Band Neutrophils 2 % (0-8) Platelet Estimate Adequate Platelet Morphology Normal Poikilocytosis 1+ Anisocytosis 1+ Ovalocytes 1+ Stomatocytes 1+ Prothrombin Time 9.4 SEC (9.30-11.50) 9.4 SEC (9.30-11.50) Prothromb Time International Ratio 0.9 (0.9-1.1) 0.9 (0.9-1.1) Activated Partial Thromboplast Time 22 SEC (23-33) L 25 SEC (23-33) Urine Color Red Urine Appearance Cloudy Urine pH 5 (4.5-8.0) Urine Specific [place] 1.015 (1.005-1.035) Urine Protein 3+ (NEGATIVE) H Urine Glucose (UA) 4+ (NEGATIVE) H Urine Ketones 1+ (NEGATIVE) H Urine Occult Blood 5+ (NEGATIVE) H Urine Nitrite Negative (NEGATIVE) Urine Bilirubin Negative (NEGATIVE) Urine Urobilinogen Normal MG/DL (0.0-1.0) Urine Leukocyte Esterase 3+ (NEGATIVE) H Urine RBC Tntc /HPF (0 - 2) H Urine WBC Tntc /HPF (0 - 2) H Urine Squamous Epithelial Cells Moderate /LPF (NONE/OCC) H Urine Bacteria Moderate /HPF (NONE) H Urine HCG, Qualitative Negative Sodium Level 130 mEQ/L (135-145) L 135 mEQ/L (135-145) Potassium Level 3.7 mEQ/L (3.4-4.9) 3.6 mEQ/L (3.4-4.9) Chloride Level 92 mEQ/L (98-107) L 101 mEQ/L (98-107) Carbon Dioxide Level 26 mEQ/L (20-30) 24 mEQ/L (20-30) Anion Gap 12 (5-15) 10 (5-15) Blood Urea Nitrogen 18 mg/dL (7-23) 12 mg/dL (7-23) Creatinine 1.0 mg/dL (0.5-0.9) H 0.5 mg/dL (0.5-0.9) Estimat Glomerular Filtration Rate > 60 mL/min (>60) > 60 mL/min (>60) Glucose Level 317 mg/dL (74-106) H 125 mg/dL (74-106) #H Calcium Level 8.9 mg/dL (8.6-10.2) 8.1 mg/dL (8.6-10.2) L Total Bilirubin < 0.2 mg/dL (0.0-1.2) 0.2 mg/dL (0.0-1.2) Aspartate Amino Transf (AST/SGOT) 14 U/L (5-40) 11 U/L (5-40) Alanine Aminotransferase (ALT/SGPT) 10 U/L (3-33) 5 U/L (3-33) Alkaline Phosphatase 118 U/L (35-104) H 100 U/L (35-104) Total Protein 8.0 g/dL (6.6-8.7) 6.5 g/dL (6.6-8.7) L Albumin 3.5 g/dL (3.5-5.2) 3.0 g/dL (3.5-5.2) L Globulin 4.5 g/dL 3.5 g/dL Albumin/Globulin Ratio 0.7 (1.0-2.7) L 0.8 (1.0-2.7) L Lipase 32 U/L (< 60) Iron Level 29 ug/dL (37-145) L Total Iron Binding Capacity 396 ug/dL (250-400) Percent Iron Saturation 7 % (15-50) L Unsaturated Iron Binding 367 ug/dL (112-346) H Lactate Dehydrogenase 545 U/L (135-230) H Carcinoembryonic Antigen 2.2 ng/mL Vitamin B12 Level 1011 pg/mL (211-946) H Erythrocyte Sedimentation Rate 77 MM/HR (0-20) H Reticulocyte Count 0.5 % (0.0-2.0) Folate Pending Height (Feet): 4 Height (Inches): 9.00 Weight (Pounds): 120 Medications Current Medications Medications (Trade) Dose Ordered Sig/Alycia Route PRN Reason Start Time Stop Time Status Last Admin Dose Admin Acetaminophen (Tylenol) 650 mg Q4H PRN ORAL fever 01/15/17 06:45 02/14/17 06:44 Al Hydroxide/Mg Hydroxide (Mylanta II) 30 ml Q6H PRN ORAL dyspepsia 01/15/17 06:45 02/14/17 06:44 Atorvastatin Calcium (Lipitor) 10 mg QHS ORAL 01/15/17 21:00 02/14/17 20:59 Dextrose (Dextrose 50%) STAT PRN IV Hypoglycemia 01/15/17 06:45 02/14/17 06:44 Levothyroxine Sodium (Synthroid) 112 mcg DAILY@0630 ORAL 01/16/17 07:00 02/15/17 06:59 Lorazepam (Ativan 2mg/ml 1ml) 0.5 mg Q4H PRN IV For Anxiety 01/15/17 06:45 01/22/17 06:44 Morphine Sulfate (Morphine Sulfate) 1 mg Q4H PRN IVP For Pain 01/15/17 06:45 01/22/17 06:44 Ondansetron HCl (Zofran) 4 mg Q6H PRN IVP Nausea & Vomiting 01/15/17 06:45 02/14/17 06:44 Polyethylene Glycol (Miralax) 17 gm HSPRN PRN ORAL Constipation 01/15/17 06:45 02/14/17 06:44 Zolpidem Tartrate (Ambien) 5 mg HSPRN PRN ORAL Insomnia 01/15/17 06:45 02/14/17 06:44 Assessment/Plan Problem List: (1) Dysfunctional uterine bleeding ICD Codes: N93.8 - Other specified abnormal uterine and vaginal bleeding SNOMED: 65265237 (2) DM (diabetes mellitus) ICD Codes: E11.9 - DM (diabetes mellitus) SNOMED: 10296259 Assessment/Plan prbc Premarin sliding scale and insulin coverage. BRENT GOLDSTEIN Jan 15, 2017 14:58
--- NOTE | 2017-01-15 17:20 | Consultation ---
Consult Note Consult Note Hematology Consulte Note Requesting MD: Frederic Avila Reason for consultation: anemia eval DOS: 01/15/17 ID: 41 y old female with several days of vaginal bleeding and passing clots. She feels dizzy when she stands up it is worse this morning. She's been taking iron at home. She's used sat 5 pads today. She was admitted to the hospital and transfused several months ago. She was told this wouldn't come back again. She received no hormonal treatment at that time. Ultrasound was done. Heterogeneous blood clot suspected within the endocervical canal. Patient is actively bleeding. The endometrium above this appears normal measuring about 6 mm. The uterus is normal in appearance and measures 9.4 x 5.3 x 5 CM. Both ovaries are demonstrated and show Doppler evidence of blood flow. Was transfused blood today. Allergies: No Known Allergies (Verified , 09/02/07) Past Medical History: Menorrhagia, Anemia, HTN, DM, Seizures Social History Narrative Last Menstrual Period: Menopause ROS: negative except as noted in the HPI PE: Vital Signs Date Time Temp Pulse Resp B/P Pulse Ox O2 Delivery O2 Flow Rate FiO2 01/14/17 22:32 97.9 77 16 83/53 100 Room Air Gen: NAD, A+O x3 Pulm: CTAB, no cwr CV: RRR, no mgr Abd: soft, NT, ND Ext: no cce Labs: hgb now 10 after was 7 earlier Laboratory Tests Test 01/14/17 23:09 01/15/17 05:32 01/15/17 05:39 01/15/17 09:00 White Blood Count 6.1 K/UL (4.8-10.8) 5.4 K/UL (4.8-10.8) Red Blood Count 3.17 M/UL (4.20-5.40) L 4.14 M/UL (4.20-5.40) L Hemoglobin 6.9 G/DL (12.0-16.0) *L 10.0 G/DL (12.0-16.0) #L Hematocrit 22.7 % (37.0-47.0) L 32.4 % (37.0-47.0) #L Mean Corpuscular Volume 72 FL (80-99) L 78 FL (80-99) #L Mean Corpuscular Hemoglobin 21.9 PG (27.0-31.0) L 24.2 PG (27.0-31.0) L Mean Corpuscular Hemoglobin Concent 30.5 G/DL (32.0-36.0) L 30.9 G/DL (32.0-36.0) L Red Cell Distribution Width 19.3 % (11.6-14.8) H 21.0 % (11.6-14.8) H Platelet Count 542 K/UL (150-450) H 457 K/UL (150-450) H Mean Platelet Volume 5.8 FL (6.5-10.1) L 5.8 FL (6.5-10.1) L Neutrophils (%) (Auto) % (45.0-75.0) 66.0 % (45.0-75.0) Lymphocytes (%) (Auto) % (20.0-45.0) 21.0 % (20.0-45.0) Monocytes (%) (Auto) % (1.0-10.0) 8.0 % (1.0-10.0) Eosinophils (%) (Auto) % (0.0-3.0) 4.2 % (0.0-3.0) H Basophils (%) (Auto) % (0.0-2.0) 0.8 % (0.0-2.0) Differential Total Cells Counted 100 Neutrophils % (Manual) 71 % (45-75) Lymphocytes % (Manual) 20 % (20-45) Monocytes % (Manual) 2 % (1-10) Eosinophils % (Manual) 2 % (0-3) Basophils % (Manual) 3 % (0-2) H Band Neutrophils 2 % (0-8) Platelet Estimate Adequate Platelet Morphology Normal Poikilocytosis 1+ Anisocytosis 1+ Ovalocytes 1+ Stomatocytes 1+ Prothrombin Time 9.4 SEC (9.30-11.50) 9.4 SEC (9.30-11.50) Prothromb Time International Ratio 0.9 (0.9-1.1) 0.9 (0.9-1.1) Activated Partial Thromboplast Time 22 SEC (23-33) L 25 SEC (23-33) Urine Color Red Urine Appearance Cloudy Urine pH 5 (4.5-8.0) Urine Specific [place] 1.015 (1.005-1.035) Urine Protein 3+ (NEGATIVE) H Urine Glucose (UA) 4+ (NEGATIVE) H Urine Ketones 1+ (NEGATIVE) H Urine Occult Blood 5+ (NEGATIVE) H Urine Nitrite Negative (NEGATIVE) Urine Bilirubin Negative (NEGATIVE) Urine Urobilinogen Normal MG/DL (0.0-1.0) Urine Leukocyte Esterase 3+ (NEGATIVE) H Urine RBC Tntc /HPF (0 - 2) H Urine WBC Tntc /HPF (0 - 2) H Urine Squamous Epithelial Cells Moderate /LPF (NONE/OCC) H Urine Bacteria Moderate /HPF (NONE) H Urine HCG, Qualitative Negative Sodium Level 130 mEQ/L (135-145) L 135 mEQ/L (135-145) Potassium Level 3.7 mEQ/L (3.4-4.9) 3.6 mEQ/L (3.4-4.9) Chloride Level 92 mEQ/L (98-107) L 101 mEQ/L (98-107) Carbon Dioxide Level 26 mEQ/L (20-30) 24 mEQ/L (20-30) Anion Gap 12 (5-15) 10 (5-15) Blood Urea Nitrogen 18 mg/dL (7-23) 12 mg/dL (7-23) Creatinine 1.0 mg/dL (0.5-0.9) H 0.5 mg/dL (0.5-0.9) Estimat Glomerular Filtration Rate > 60 mL/min (>60) > 60 mL/min (>60) Glucose Level 317 mg/dL (74-106) H 125 mg/dL (74-106) #H Calcium Level 8.9 mg/dL (8.6-10.2) 8.1 mg/dL (8.6-10.2) L Total Bilirubin < 0.2 mg/dL (0.0-1.2) 0.2 mg/dL (0.0-1.2) Aspartate Amino Transf (AST/SGOT) 14 U/L (5-40) 11 U/L (5-40) Alanine Aminotransferase (ALT/SGPT) 10 U/L (3-33) 5 U/L (3-33) Alkaline Phosphatase 118 U/L (35-104) H 100 U/L (35-104) Total Protein 8.0 g/dL (6.6-8.7) 6.5 g/dL (6.6-8.7) L Albumin 3.5 g/dL (3.5-5.2) 3.0 g/dL (3.5-5.2) L Globulin 4.5 g/dL 3.5 g/dL Albumin/Globulin Ratio 0.7 (1.0-2.7) L 0.8 (1.0-2.7) L Lipase 32 U/L (< 60) Iron Level 29 ug/dL (37-145) L Total Iron Binding Capacity 396 ug/dL (250-400) Percent Iron Saturation 7 % (15-50) L Unsaturated Iron Binding 367 ug/dL (112-346) H Lactate Dehydrogenase 545 U/L (135-230) H Carcinoembryonic Antigen 2.2 ng/mL Vitamin B12 Level 1011 pg/mL (211-946) H Erythrocyte Sedimentation Rate 77 MM/HR (0-20) H Reticulocyte Count 0.5 % (0.0-2.0) Folate Pending Assessment: # Anemia secondary to iron deficiency from menopausal menorrhagia # Anemia r/o newsagent malignancy - needs further eval # Hyperglycemia # DM hx # UTI hx # Heavy vaginal bleeding Recs: - Monitor counts - Transfuse as needed - Hgb target is >7 - Iron panel has been reviewed - Ferritin is pending - Iron has been started - REQUIRES OR DIRECTOR eval as outpatient to rule out malignancy, have paged them earlier today - Appreciate consultation from Maverick Fortune Jan 15, 2017 17:20
[2017-01-15] MEDS: NovoLOG Insulin Flexpen SUBQ SCH ×2 (17:45→22:20)
--- NOTE | 2017-01-15 18:47 | History and Physical Report ---
DATE OF ADMISSION: 01/15/2017 Time Seen: 11:30 hours. CONSULTANTS: 1. Nemesio Torres M.D. 2. Dr. Welch. 3. Dave Coello M.D. 4. [employer]SEMBLER per Dr. Torres. BRIEF HISTORY: This is a 41-year-old female presents to [facility] with a history of weakness, copious bleeding vaginally. The patient has a history of menorrhagia, diagnosed and currently came in, anemia was down to 6.9. The patient was transfused in the ER and admitted to medical floor for further treatment. Currently, calm in bed. No complaint. No chest pain. No shortness of breath. No nausea, vomiting or diarrhea. PAST MEDICAL HISTORY: Menorrhagia and diabetes. PAST SURGICAL HISTORY: . MEDICATIONS: Synthroid, Lipitor, Tylenol, morphine, MiraLAX, Zofran, Ambien, and Mylanta. ALLERGIES: Denies. SOCIAL HISTORY: No smoking. No alcohol. No intravenous drug use. FAMILY HISTORY: Noncontributory. PHYSICAL EXAMINATION: GENERAL: Calm in bed, alert and oriented x3, no acute distress. VITAL SIGNS: Temperature 97 degrees, pulse 69, respirations 20, and blood pressure 150/86. CARDIOVASCULAR: No murmur. LUNGS: Distant and clear. ABDOMEN: Bowel sounds are positive. Nontender and nondistended. EXTREMITIES: No clubbing, cyanosis, or edema. NEUROLOGIC: Cranial nerves II through XII grossly intact. Deep tendon reflexes 2+. Muscle strength is 5/5. LABORATORY AND DIAGNOSTIC DATA: Hemoglobin and hematocrit 6.0/27 and platelets 542,000. Today hemoglobin and hematocrit 10/32 status post transfusion and platelets 457,000. BMP shows glucose 125, otherwise BMP is normal. INR is 0.9 and PTT 25. Urinalysis show 3+ leukocyte esterase. ASSESSMENT: 1. Menorrhagia. 2. Anemia. 3. Urinary tract infection. 4. Diabetes. PLAN: Continue pre-medications. Transfuse p.r.n. and Dr. Torres, Dr. Welch, Dr. Coello and ELECTR[employer] ASSEMBLER to follow. Antibiotics per Infectious Disease. Blood sugar control. CBC and BMP in the morning. Discharge plan. OT/PT. Dietary evaluation. Frederic Avila D.O. DR: JEREMIAH JOB#: [id number] CC:
[2017-01-16] VITALS: BP 117/75
[2017-01-16] MEDS ORDERED: Morphine Sulfate 2mg/ml Inj IVP PRN (01:30)
[2017-01-16 04:00] VITALS: BP 124/80
[2017-01-16] MEDS: NovoLOG Insulin Flexpen SUBQ SCH ×2 (06:37→11:35)
[2017-01-16 06:57] LABS: BASOPHILS % (AUTO) 1.5 % (0.0-2.0); EOSINOPHILS % (AUTO) 4.3 % (0.0-3.0); LYMPHOCYTES % (AUTO) 19.5 % (20.0-45.0); MEAN CORPUSCULAR HEMOGLOBIN 24.2 PG (27.0-31.0); MEAN CORPUSCULAR HGB CONC 31.2 G/DL (32.0-36.0); MEAN CORPUSCULAR VOLUME 78 FL (80-99); MONOCYTES % (AUTO) 6.3 % (1.0-10.0); NEUTROPHILS % (AUTO) 68.5 % (45.0-75.0); PLATELET COUNT 480 K/UL (150-450); RED BLOOD COUNT 4.73 M/UL (4.20-5.40); RED CELL DISTRIBUTION WIDTH 20.1 % (11.6-14.8); WHITE BLOOD COUNT 4.5 K/UL (4.8-10.8)
[2017-01-16 08:00] VITALS: BP 111/76
[2017-01-16 08:41] LABS: ALANINE AMINOTRANSFERASE 6 U/L (3-33); ALBUMIN/GLOBULIN RATIO 0.8 (1.0-2.7); ANION GAP 14 (5-15); ASPARTATE AMINO TRANSFERASE 14 U/L (5-40); CALCIUM 8.7 mg/dL (8.6-10.2); CARBON DIOXIDE 25 mEQ/L (20-30); CHLORIDE 98 mEQ/L (98-107); CREATININE 0.7 mg/dL (0.5-0.9); GLOMERULAR FILTRATION RATE > 60 mL/min (>60); HEMOLYSIS 3; POTASSIUM 4.5 mEQ/L (3.4-4.9); SODIUM 137 mEQ/L (135-145); TOTAL PROTEIN 7.2 g/dL (6.6-8.7)
--- NOTE | 2017-01-16 10:05 | General Progress Note ---
Assessment/Plan Problem List: (1) UTI (urinary tract infection) (2) Fibroid (3) Anemia (4) Vaginal bleeding Status: stable, progressing, tolerating diet Assessment/Plan ot pt diet cbc bmp am dc plan Subjective Constitutional: Reports: weakness Allergies: Coded Allergies: No Known Allergies (Verified , 09/02/07) All Systems: reviewed and negative except above Subjective calm in bed Objective Last 24 Hour Vital Signs Date Time Temp Pulse Resp B/P Pulse Ox O2 Delivery O2 Flow Rate FiO2 01/16/17 08:00 95.5 71 19 111/76 99 Room Air 01/16/17 04:00 97.9 75 20 124/80 96 Room Air 01/16/17 00:00 97.9 72 20 117/75 99 Room Air 01/15/17 23:24 98.2 01/15/17 20:00 98.2 73 20 124/75 96 Room Air 01/15/17 15:58 98.4 72 20 152/85 98 Room Air 01/15/17 11:41 98.2 72 20 163/88 100 Room Air Intake and Output 01/15/17 01/16/17 19:00 07:00 Intake Total 960 ml Output Total 360 ml Balance 600 ml Intake Oral 960 ml Output Urine Total 360 ml # Voids 3 # Bowel Movements 1 Laboratory Tests 01/16/17 05:45: White Blood Count 4.5L, Red Blood Count 4.73, Hemoglobin 11.5L, Hematocrit 36.7L , Mean Corpuscular Volume 78L, Mean Corpuscular Hemoglobin 24.2L, Mean Corpuscular Hemoglobin Concent 31.2L, Red Cell Distribution Width 20.1H, Platelet Count 480H, Mean Platelet Volume 5.0L, Neutrophils (%) (Auto) 68.5, Lymphocytes (%) (Auto) 19.5L, Monocytes (%) (Auto) 6.3, Eosinophils (%) (Auto) 4.3H, Basophils (%) (Auto) 1.5, Sodium Level 137, Potassium Level 4.5, Chloride Level 98, Carbon Dioxide Level 25, Anion Gap 14, Blood Urea Nitrogen 18, Creatinine 0.7, Estimat Glomerular Filtration Rate > 60, Glucose Level 104, Calcium Level 8.7, Total Bilirubin 0.5, Aspartate Amino Transf (AST/SGOT) 14, Alanine Aminotransferase (ALT/SGPT) 6, Alkaline Phosphatase 105H, Total Protein 7.2, Albumin 3.4L, Globulin 3.8, Albumin/Globulin Ratio 0.8L, Thyroid Stimulating Hormone (TSH) 15.080H Height (Feet): 4 Height (Inches): 9.00 Weight (Pounds): 120 General Appearance: alert EENT: normal ENT inspection Neck: normal alignment Cardiovascular: normal peripheral pulses, normal rate, regular rhythm Respiratory/Chest: chest wall non-tender, lungs clear, normal breath sounds Abdomen: normal bowel sounds, non tender, soft Extremities: normal inspection Edema: no edema noted Arm (L), no edema noted Arm (R), no edema noted Leg (L), no edema noted Leg (R), no edema noted Pedal (L), no edema noted Pedal (R), no edema noted Generalized Neurologic: responsive, motor weakness Skin: normal pigmentation, warm/dry MEHDI JAFFE Jan 16, 2017 10:05
[2017-01-16 12:00] VITALS: BP 153/93
--- NOTE | 2017-01-16 19:30 | General Progress Note ---
Assessment/Plan Assessment/Plan Assessment: # Anemia secondary to iron deficiency from menopausal menorrhagia # Anemia r/o agronomist malignancy - needs further eval # Hyperglycemia # DM hx # UTI hx # Heavy vaginal bleeding Recs: - Monitor counts - Transfuse as needed - Hgb target is >7 - Iron panel has been reviewed - Ferritin is pending - Iron has been started - REQUIRES RELIGION PROFESSOR eval as outpatient to rule out malignancy - Appreciate consultation from Dr. Young Subjective Constitutional: Reports: no symptoms HEENT: Reports: no symptoms Cardiovascular: Reports: no symptoms Respiratory: Reports: no symptoms Gastrointestinal/Abdominal: Reports: no symptoms Genitourinary: Reports: no symptoms Neurologic/Psychiatric: Reports: no symptoms Endocrine: Reports: no symptoms Hematologic/Lymphatic: Reports: no symptoms Allergies: Coded Allergies: No Known Allergies (Verified , 09/02/07) Subjective NAD, pt resting Objective Last 24 Hour Vital Signs Date Time Temp Pulse Resp B/P Pulse Ox O2 Delivery O2 Flow Rate FiO2 01/16/17 12:00 97.9 18 153/93 99 Room Air 01/16/17 08:00 95.5 71 19 111/76 99 Room Air 01/16/17 04:00 97.9 75 20 124/80 96 Room Air 01/16/17 00:00 97.9 72 20 117/75 99 Room Air 01/15/17 23:24 98.2 01/15/17 20:00 98.2 73 20 124/75 96 Room Air Intake and Output 01/15/17 01/16/17 19:00 07:00 Intake Total 960 ml Output Total 360 ml Balance 600 ml Intake Oral 960 ml Output Urine Total 360 ml # Voids 3 # Bowel Movements 1 Laboratory Tests 01/16/17 05:45: White Blood Count 4.5L, Red Blood Count 4.73, Hemoglobin 11.5L, Hematocrit 36.7L , Mean Corpuscular Volume 78L, Mean Corpuscular Hemoglobin 24.2L, Mean Corpuscular Hemoglobin Concent 31.2L, Red Cell Distribution Width 20.1H, Platelet Count 480H, Mean Platelet Volume 5.0L, Neutrophils (%) (Auto) 68.5, Lymphocytes (%) (Auto) 19.5L, Monocytes (%) (Auto) 6.3, Eosinophils (%) (Auto) 4.3H, Basophils (%) (Auto) 1.5, Sodium Level 137, Potassium Level 4.5, Chloride Level 98, Carbon Dioxide Level 25, Anion Gap 14, Blood Urea Nitrogen 18, Creatinine 0.7, Estimat Glomerular Filtration Rate > 60, Glucose Level 104, Calcium Level 8.7, Total Bilirubin 0.5, Aspartate Amino Transf (AST/SGOT) 14, Alanine Aminotransferase (ALT/SGPT) 6, Alkaline Phosphatase 105H, Total Protein 7.2, Albumin 3.4L, Globulin 3.8, Albumin/Globulin Ratio 0.8L, Thyroid Stimulating Hormone (TSH) 15.080H Height (Feet): 4 Height (Inches): 9.00 Weight (Pounds): 120 General Appearance: WD/WN EENT: PERRL/EOMI Neck: non-tender Cardiovascular: normal peripheral pulses Respiratory/Chest: chest wall non-tender Abdomen: normal bowel sounds Pelvis: blood Extremities: normal range of motion Edema: no edema noted Leg (L), no edema noted Leg (R), no edema noted Pedal (L) , no edema noted Pedal (R), no edema noted Generalized Neurologic: oriented x 3 Skin: warm/dry Maverick Welch Jan 16, 2017 19:30
--- NOTE | 2017-01-17 | Pulmonology Progress Note ---
Assessment/Plan Problems: (1) Dysfunctional uterine bleeding (2) DM (diabetes mellitus) Subjective Allergies: Coded Allergies: No Known Allergies (Verified , 09/02/07) Objective Last 24 Hour Vital Signs Date Time Temp Pulse Resp B/P Pulse Ox O2 Delivery O2 Flow Rate FiO2 01/16/17 12:00 97.9 18 153/93 99 Room Air 01/16/17 08:00 95.5 71 19 111/76 99 Room Air 01/16/17 04:00 97.9 75 20 124/80 96 Room Air Intake and Output 01/16/17 01/17/17 19:00 07:00 Intake Total 720 ml Balance 720 ml Intake Oral 720 ml # Voids 1 Microbiology Date/Time Source Procedure Growth Status 01/14/17 23:09 Urine,Clean Catch Urine Culture - Preliminary Resulted Laboratory Tests 01/16/17 05:45: White Blood Count 4.5L, Red Blood Count 4.73, Hemoglobin 11.5L, Hematocrit 36.7L , Mean Corpuscular Volume 78L, Mean Corpuscular Hemoglobin 24.2L, Mean Corpuscular Hemoglobin Concent 31.2L, Red Cell Distribution Width 20.1H, Platelet Count 480H, Mean Platelet Volume 5.0L, Neutrophils (%) (Auto) 68.5, Lymphocytes (%) (Auto) 19.5L, Monocytes (%) (Auto) 6.3, Eosinophils (%) (Auto) 4.3H, Basophils (%) (Auto) 1.5, Sodium Level 137, Potassium Level 4.5, Chloride Level 98, Carbon Dioxide Level 25, Anion Gap 14, Blood Urea Nitrogen 18, Creatinine 0.7, Estimat Glomerular Filtration Rate > 60, Glucose Level 104, Calcium Level 8.7, Total Bilirubin 0.5, Aspartate Amino Transf (AST/SGOT) 14, Alanine Aminotransferase (ALT/SGPT) 6, Alkaline Phosphatase 105H, Total Protein 7.2, Albumin 3.4L, Globulin 3.8, Albumin/Globulin Ratio 0.8L, Thyroid Stimulating Hormone (TSH) 15.080H BRENT GOLDSTEIN Jan 17, 2017 00:00
--- NOTE | 2017-01-18 14:31 | Diagnostic Imaging Report ---
APPROVED REPORT CPT Code: 09869 Present Symptoms Lower Extremity Pain: Bilateral BILATERAL: Imaging reveals a patent deep venous system bilaterally. There is no evidence of thrombus within the femoral, popliteal or tibial segments. The greater saphenous veins are also within normal limits. Doppler indicates normal spontaneous flow within these segments.
[2017-01-19] MEDS ORDERED: BACTRIM DOUBLE S1 E1 ORAL (10:55)
[2017-01-19] MEDS ORDERED: LEVOTHYROXINE112 MCG ORAL (10:55)
--- NOTE | 2017-01-19 11:07 | Discharge Summary ---
Discharge Summary Hospital Course Date of Admission Jan 15, 2017 at 00:00 Date of Discharge Jan 16, 2017 at 13:45 Admitting Diagnosis metorrhagia/anemia MALLORY Cole is a 41 year old female who was admitted on Jan 15, 2017 at 00:00 for Metorrhagia,Anemia Hospital Course dc summary #[id number] Discharge Medications New Medications: Trimethoprim/Sulfamethoxazole (Bactrim 400-80 mg Tablet) 1 Each Tablet 1 TAB ORAL TWICE A DAY, #6 TAB Changed Medications: Levothyroxine Sodium* (Levothyroxine Sodium*) 112 Mcg Tab 125 MCG ORAL DAILY@0630 for 30 Days, TAB (Changed from: 112 MCG) Continued Medications: Atorvastatin Calcium* (Lipitor*) 10 Mg Tablet 10 MG ORAL QHS, TAB Insulin Aspart* (Novolog*) 100 Unit/1 Ml Insuln.pen 0 SUBQ, #1 EA 0 Refills Insulin Glargine (Lantus) 100 Unit/1 Ml Insuln.pen 0 SUBQ BEDTIME, #1 EA 0 Refills Discharge Condition Upon Discharge: stable Discharge Disposition Patient was discharged to Home (01) Discharge Diagnoses: Discharge Instructions Discharge Instructions Special Instructions I have been assigned to complete a D/C Summary on this account. I was not involved in the patient management Carmen Card NP ([place]) Jan 19, 2017 11:07
--- NOTE | 2017-01-20 03:08 | Discharge Summary 2 SIG ---
DATE OF ADMISSION: 01/15/2017 DATE OF DISCHARGE: 01/16/2017 REASON FOR ADMISSION: The patient is a 41-year-old female, presented to emergency room with a complaint of heavy vaginal bleeding with clots. She felt dizzy especially when standing up and worse in the morning. She had been taking iron at home that was an ongoing problem. She was transfused few months ago in October in emergency department. She received no hormonal treatment at that time. The ultrasound was done in September, which revealed no fibroids. She did not have any bleeding since that time. She denied fever, chills, or chest pain. Reported intermittent suprapubic pain and she also has a history of diabetes and her blood sugar was high. She is taking insulin at home. Workup in the emergency room revealed severe anemia with hemoglobin 6.9, hematocrit 22.7. No leukocytosis. The blood sugar was 317. The patient given boluses of the IV fluid and blood sugar . Urinalysis with evidence of urinary tract infection. The patient started on empiric antibiotics. The patient typed and crossed for transfusion and admitted to the hospital for further management. ADMITTING DIAGNOSES: Include: 1. Dysfunctional uterine bleeding. 2. Anemia. 3. Urinary tract infection. 4. Diabetes mellitus with hyperglycemia. HOSPITAL STAY: The patient admitted. The patient was started on the IV fluids and empiric antibiotics. The patient was transfused 2 units of packed red blood cells. Hematology consult was requested. Anemia workup revealed low iron and low ferritin. The patient started on the iron supplement. CEA within normal limits. Urine culture revealed mixed gram-positive organism with colony count more than 100,000. The patient had for two days IV antibiotics and was discharged on three days of oral antibiotics to complete the course for treatment. Blood sugar was managed with the sliding scale insulin. The patient needs further optimization of anti-glycemic regimen. The patient has a history of hypothyroidism, noted elevated TSH and Synthroid dose was increased. The coagulation profile and INR was within normal limits. The patient was stable for discharge home. No further anemia. Hemoglobin and hematocrit stable. Feeling better. No dizziness. No weakness, however, the patient again strongly encouraged to follow up with [facility] for her insurance due to the dysfunctional uterine bleeding to rule out any possible HOME HEALTH LPN malignancy. FINAL DIAGNOSES: Include: 1. Dysfunctional uterine bleeding. 2. Iron deficiency anemia secondary to dysfunctional uterine bleeding. 3. Urinary tract infection. 4. Diabetes mellitus with hyperglycemia. 5. Hypothyroidism with elevated thyroid-stimulating hormone. DISCHARGE MEDICATIONS: See medication reconciliation list. DISCHARGE INSTRUCTIONS: The patient will follow up with the primary medical doctor and urgent referral to [facility] for workup for dysfunctional uterine bleeding and possible HOME HEALTH LPN malignancy. Frederic Avila D.O. I have been assigned to dictate discharge summary on this account and I was not involved in the patient's management. Carmen beckhamkailee NGalo DR: [place] JOB#: [id number] CC:
== END 2017-01-16 13:45 | disposition home or self-care (01) | DRG 532 ==
LOC: EMR 22:48 → 4W 01-15 → EDBEDREQ 01-15 00:14
PROC: 30233N1 Transfusion of Nonautologous Red Blood Cells into Peripheral Vein, Percutaneous Approach (ICD-10-PCS; principal; 2017-01-15)
DX: N93.8 Other specified abnormal uterine and vaginal bleeding (principal); E11.65 Type 2 diabetes mellitus with hyperglycemia; D50.9 Iron deficiency anemia, unspecified; N39.0 Urinary tract infection, site not specified
CPT/HCPCS: 36415; 80053; 81003; 81025; 82378; 82607; 82728; 82746; 82962; 83540; 83550; 83615; 83690; 84443; 85007; 85025; 85044; 85610; 85651; 85730; 86850; 86900; 86901; 86920; 87086; 93970; J1815; J2405

== ENCOUNTER 2017-06-15 10:00 | Inpatient (IN) | payer MEDICAID ==
[~2017-06-15] VITALS: Ht 154.9 cm; Wt 54.4 kg
[~2017-06-15 10:00] MED LIST changes: +BACTRIM DOUBLE S1 E1 ORAL
[2017-06-15 10:31] VITALS: BP 121/77
[2017-06-15 11:07] LABS: MEAN CORPUSCULAR HEMOGLOBIN 20.6 PG (27.0-31.0); MEAN CORPUSCULAR VOLUME 71 FL (80-99); MEAN PLATELET VOLUME 5.8 FL (6.5-10.1); PLATELET COUNT 341 K/UL (150-450); RED BLOOD COUNT 3.27 M/UL (4.20-5.40); RED CELL DISTRIBUTION WIDTH 18.6 % (11.6-14.8); WHITE BLOOD COUNT 6.8 K/UL (4.8-10.8)
[2017-06-15 11:37] LABS: ALANINE AMINOTRANSFERASE 24 U/L (3-33); ALBUMIN/GLOBULIN RATIO 1.2 (1.0-2.7); ANION GAP 14 (5-15); ASPARTATE AMINO TRANSFERASE 27 U/L (5-40); CALCIUM 8.3 mg/dL (8.6-10.2); CARBON DIOXIDE 24 mEQ/L (20-30); CHLORIDE 98 mEQ/L (98-107); CREATININE 0.7 mg/dL (0.5-0.9); GLOMERULAR FILTRATION RATE > 60 mL/min (>60); HEMOLYSIS 0; POTASSIUM 4.7 mEQ/L (3.4-4.9); SODIUM 136 mEQ/L (135-145); TOTAL PROTEIN 7.2 g/dL (6.6-8.7)
[2017-06-15 11:39] LABS: BASOPHILS % (MANUAL) 1 % (0-2); HYPOCHROMASIA 3+; PLATELET ESTIMATE ADEQUATE; PLATELET MORPHOLOGY NORMAL; TOTAL CELLS COUNTED 100
[2017-06-15 11:40] LABS: ANISOCYTOSIS 2+; MICROCYTES 1+
[2017-06-15 11:43] LABS: LYMPHOCYTES % (MANUAL) 15 % (20-45); NEUTROPHILS % (MANUAL) 78 % (45-75)
[2017-06-15 11:44] LABS: EOSINOPHILS % (MANUAL) 2 % (0-3)
[2017-06-15 11:51] LABS: BAND NEUTROPHILS % (MANUAL) 0 % (0-8)
[2017-06-15 12:22] VITALS: BP 131/68
[2017-06-15 12:45] LABS: INR 0.9 (0.9-1.1); PROTHROMBIN TIME 9.7 SEC (9.30-11.50)
[2017-06-15 13:00] VITALS: BP 127/77
[2017-06-15] MEDS ORDERED: Morphine Sulfate 2mg/ml Inj IVP PRN (14:00)
--- NOTE | 2017-06-15 14:08 | Emergency Room Report ---
History of Present Illness General Chief Complaint: Eye Problems Source: Patient Present Illness HPI 42-year-old female presents to ED complaining of blurry vision in the left eye x8 days. Patient denies any pain in his left eye. Patient states he feels very blurry. Unable to visualize properly. Denies any symptoms in her right eye. Patient states that her sugars are not well controlled. Denies fevers or chills. Denies chest pain shortness of breath. Denies headache. No other aggravating relieving factors. Denies any other associated symptoms Allergies: Coded Allergies: No Known Allergies (Verified , 09/02/07) Patient History Past Medical History: DM, HTN Past Surgical History: none Pertinent Family History: none Social History: Denies: smoking, alcohol use, drug use Last Menstrual Period: 06/13/17 Now: No Immunizations: UTD Reviewed Nursing Documentation: PMH: Agreed, PSxH: Agreed Nursing Documentation-PMH Hx Cardiac Problems: No - Anemia Hx Hypertension: Yes Hx Diabetes: Yes Hx Cancer: No Hx Gastrointestinal Problems: No Hx Neurological Problems: No Hx Cerebrovascular Accident: No Hx Transient Ischemic Attacks: No Hx Dementia: No Hx Alzheimer's Disease: No Hx Parkinson's Disease: No Hx Meningitis: No Hx Encephalitis: No Hx Seizures: Yes Hx Epilepsy: No Hx Multiple Sclerosis: No Hx Cerebral Palsy: No Hx Amyotrophic Lat Sclerosis: No Hx Guillian-[place] Syndrome: No Hx Paralysis: No Hx Peripheral Neuropathy: No Hx Spinal Cord Injury: No Hx Head Trauma: Yes - Fell in the shower and hit her head one day prior to admission Hx Traumatic Brain Injury: No Hx Memory Loss: No Hx Concentration Difficulty: Yes Hx Speech Problem: No Hx Tremors: No Hx Vertigo: No Hx Dizziness: Yes Hx Syncope: No Hx Headaches: Yes Hx Aphasia: No Hx Dysphasia: No Hx Numbness: No Hx Weakness: No Hx Fatigue: Yes Hx Neurologic Surgery: No Hx Brain Shunt: No Review of Systems All Other Systems: negative except mentioned in HPI Physical Exam Vital Signs Date Time Temp Pulse Resp B/P (MAP) Pulse Ox O2 Delivery O2 Flow Rate FiO2 06/15/17 10:23 97.9 87 16 121/77 99 Room Air Sp02 EP Interpretation: reviewed, normal General Appearance: no apparent distress, alert, GCS 15, non-toxic Head: normocephalic, atraumatic Eyes: left eye visual acuity - 20/40 right eye, 20/200 L eye, bilateral eye normal inspection, bilateral eye PERRL ENT: hearing grossly normal, normal pharynx, no angioedema, normal voice Neck: full range of motion, supple/symm/no masses Respiratory: chest non-tender, lungs clear, normal breath sounds, speaking full sentences Cardiovascular #1: regular rate, rhythm, no edema Cardiovascular #2: 2+ carotid (R), 2+ carotid (L), 2+ radial (R), 2+ radial (L) , 2+ dorsalis pedis (R), 2+ dorsalis pedis (L) Gastrointestinal: normal bowel sounds, non tender, soft, non-distended, no guarding, no rebound Rectal: deferred Genitourinary: normal inspection, no CVA tenderness Musculoskeletal: back normal, gait/station normal, normal range of motion, non- tender Neurologic: alert, oriented x3, responsive, motor strength/tone normal, sensory intact, speech normal Psychiatric: judgement/insight normal, memory normal, mood/affect normal, no suicidal/homicidal ideation Reflexes: 3+ bicep (R), 3+ bicep (L), 3+ tricep (R), 3+ tricep (L), 3+ knee (R) , 3+ knee (L) Skin: normal color, no rash, warm/dry, well hydrated Lymphatic: no adenopathy Medical Decision Making Diagnostic Impression: Primary Impression: Anemia Qualified Codes: D64.9 - Anemia, unspecified Additional Impressions: Blurry vision, left eye DUB (dysfunctional uterine bleeding) Diabetes mellitus out of control Qualified Codes: E13.8 - Other specified diabetes mellitus with unspecified complications; E13.65 - Other specified diabetes mellitus with hyperglycemia ER Course Hospital Course 2-year-old female presents to ED with blurry vision in the left eye, Accu-Chek high Differential diagnoses include: ETOH/drug ingestion, sepsis, DKA Clinical course Patient placed on stretcher. On media monitor. After initial history and physical I ordered labs, IV fluids, Labs-glucose elevated, no DKA, hemoglobin/hematocrit 6.8/23.3. Given the patient's blood glucose is poorly controlled I discussed with ophthalmology Dr. Bravo; he agrees that this is likely diabetic retinopathy 2 units PRBCs ordered. Patient will be admitted Case discussed with Dr. Avila and he agreed to accept the patient to his service for further care and support. Dr Bravo will consult i. I feel this is a highly complex case requiring extensive working including EKG/Rhythm strip, Xray/CT/US, Blood/urine lab work, repeat exams while in ED, and administration of strong opiates/narcotics for pain control, admission to hospital or close patient follow up. diagnosis - blurry vision, anemia, uncontrolled diabetes, dysfunction uterine bleeding admitted to floor in serious condition Labs Test 06/15/17 10:50 06/15/17 12:15 White Blood Count 6.8 K/UL (4.8-10.8) Red Blood Count 3.27 M/UL (4.20-5.40) Hemoglobin 6.8 G/DL (12.0-16.0) Hematocrit 23.3 % (37.0-47.0) Mean Corpuscular Volume 71 FL (80-99) Mean Corpuscular Hemoglobin 20.6 PG (27.0-31.0) Mean Corpuscular Hemoglobin Concent 29.0 G/DL (32.0-36.0) Red Cell Distribution Width 18.6 % (11.6-14.8) Platelet Count 341 K/UL (150-450) Mean Platelet Volume 5.8 FL (6.5-10.1) Neutrophils (%) (Auto) % (45.0-75.0) Lymphocytes (%) (Auto) % (20.0-45.0) Monocytes (%) (Auto) % (1.0-10.0) Eosinophils (%) (Auto) % (0.0-3.0) Basophils (%) (Auto) % (0.0-2.0) Differential Total Cells Counted 100 Neutrophils % (Manual) 78 % (45-75) Lymphocytes % (Manual) 15 % (20-45) Monocytes % (Manual) 4 % (1-10) Eosinophils % (Manual) 2 % (0-3) Basophils % (Manual) 1 % (0-2) Band Neutrophils 0 % (0-8) Platelet Estimate Adequate Platelet Morphology Normal Hypochromasia 3+ Anisocytosis 2+ Microcytosis 1+ Sodium Level 136 mEQ/L (135-145) Potassium Level 4.7 mEQ/L (3.4-4.9) Chloride Level 98 mEQ/L (98-107) Carbon Dioxide Level 24 mEQ/L (20-30) Anion Gap 14 (5-15) Blood Urea Nitrogen 9 mg/dL (7-23) Creatinine 0.7 mg/dL (0.5-0.9) Estimat Glomerular Filtration Rate > 60 mL/min (>60) Glucose Level 275 mg/dL (74-106) Calcium Level 8.3 mg/dL (8.6-10.2) Magnesium Level 2.0 mg/dL (1.7-2.5) Total Bilirubin 0.2 mg/dL (0.0-1.2) Aspartate Amino Transf (AST/SGOT) 27 U/L (5-40) Alanine Aminotransferase (ALT/SGPT) 24 U/L (3-33) Alkaline Phosphatase 100 U/L (35-104) Total Protein 7.2 g/dL (6.6-8.7) Albumin 4.0 g/dL (3.5-5.2) Globulin 3.2 g/dL Albumin/Globulin Ratio 1.2 (1.0-2.7) Human Chorionic Gonadotropin, Qual Negative Acetone Level Negative (NEGATIVE) Prothrombin Time 9.7 SEC (9.30-11.50) Prothromb Time International Ratio 0.9 (0.9-1.1) Activated Partial Thromboplast Time 25 SEC (23-33) Last Vital Signs Date Time Temp Pulse Resp B/P (MAP) Pulse Ox O2 Delivery O2 Flow Rate FiO2 06/15/17 13:00 98.7 82 16 127/77 99 Room Air Status: improved Disposition: ADMITTED INPATIENT Condition: Serious Referrals: NOT CHOSEN SERENA/,REFERRING (PCP) SEPIDEH JUAREZ M.D. Jun 15, 2017 14:07
--- NOTE | 2017-06-15 14:32 | GI Initial Consult Note ---
History of Present Illness General Date patient seen: Jun 15, 2017 Time patient seen: 14:25 Reason for Hospitalization: Eye Problems Referring physician: MEHDI JAFFE Reason for Consultation: ANEMIA Present Illness HPI 42-year-old female presents to ED complaining of blurry vision in the left eye x8 days. Patient denies any pain in his left eye. Patient states he feels very blurry. Unable to visualize properly. Denies any symptoms in her right eye. Patient states that her sugars are not well controlled. Denies fevers or chills. Denies chest pain shortness of breath. Denies headache. No other aggravating relieving factors. Denies any other associated symptoms. GI Consult. HPI as noted above. GI consulted for anemia. Pt seen on floor, awake A&Ox4 NAD with no active s/sx of N/V/D. She presents today with microcytic, hypochromic anemia requiring blood transfusion and hypothyroidism. HCG negative. No known history of endoscopic procedures. Home Meds Active Scripts Trimethoprim/Sulfamethoxazole (Bactrim 400-80 mg Tablet) 1 Each Tablet, 1 TAB ORAL TWICE A DAY, #6 TAB Prov:Carmen Card NP (Vanchtein) 01/19/17 Levothyroxine Sodium* (LEVOTHYROXINE SODIUM*) 112 Mcg Tab, 125 MCG ORAL DAILY@ 0630 for 30 Days, TAB Prov:Carmen Card NP (Vanchtein) 01/19/17 Ferrous Sulfate* (FERROUS SULFATE*) 325 Mg Tablet, 325 MG ORAL TWICE A DAY, #60 TAB 0 Refills Prov:DESTINEY JALLOH M.D. 11/03/16 Ibuprofen* (MOTRIN*) 600 Mg Tablet, 600 MG ORAL Q8H Y for For Pain, #30 TAB 0 Refills Prov:LAURA CURRAN P.APhilip 10/12/16 Vits W-Ca,Fe,Fa(<1MG) ( FORMULA) 1 Each Tablet, 1 TAB ORAL DAILY, #30 TAB Prov:GARRETT HIGH TILE DESIGNER 11/29/14 Reported Medications Insulin Glargine (LANTUS) 100 Unit/1 Ml Insuln.pen, 0 SUBQ BEDTIME, #1 EA 0 Refills 10/12/16 Atorvastatin Calcium* (LIPITOR*) 10 Mg Tablet, 10 MG ORAL QHS, TAB 02/04/15 Insulin Aspart* (NOVOLOG*) 100 Unit/1 Ml Insuln.pen, 0 SUBQ, #1 EA 0 Refills 11/29/14 Med list reviewed/reconciled: Yes Allergies: Coded Allergies: No Known Allergies (Verified , 09/02/07) Patient History History Provided By: Patient, Medical Record PMH Narrative Past Medical History: DM, HTN Past Surgical History: none Pertinent Family History: none Social History: Denies: smoking, alcohol use, drug use Last Menstrual Period: 06/13/17 Now: No Immunizations: UTD Reviewed Nursing Documentation: PMH: Agreed, PSxH: Agreed Nursing Documentation-PMH Hx Cardiac Problems: No - Anemia Hx Hypertension: Yes Hx Diabetes: Yes Hx Cancer: No Hx Gastrointestinal Problems: No Hx Neurological Problems: No Hx Cerebrovascular Accident: No Hx Transient Ischemic Attacks: No Hx Dementia: No Hx Alzheimer's Disease: No Hx Parkinson's Disease: No Hx Meningitis: No Hx Encephalitis: No Hx Seizures: Yes Hx Epilepsy: No Hx Multiple Sclerosis: No Hx Cerebral Palsy: No Hx Amyotrophic Lat Sclerosis: No Hx Guillian-[place] Syndrome: No Hx Paralysis: No Hx Peripheral Neuropathy: No Hx Spinal Cord Injury: No Hx Head Trauma: Yes - Fell in the shower and hit her head one day prior to admission Hx Traumatic Brain Injury: No Hx Memory Loss: No Hx Concentration Difficulty: Yes Hx Speech Problem: No Hx Tremors: No Hx Vertigo: No Hx Dizziness: Yes Hx Syncope: No Hx Headaches: Yes Hx Aphasia: No Hx Dysphasia: No Hx Numbness: No Hx Weakness: No Hx Fatigue: Yes Hx Neurologic Surgery: No Hx Brain Shunt: No Social History: Denies: smoking, alcohol use, drug use, other Review of Systems All Other Systems: negative except mentioned in HPI Physical Exam Vital Signs Date Time Temp Pulse Resp B/P (MAP) Pulse Ox O2 Delivery O2 Flow Rate FiO2 06/15/17 10:23 97.9 87 16 121/77 99 Room Air Sp02 EP Interpretation: reviewed Labs Laboratory Tests Test 06/15/17 10:50 06/15/17 12:15 White Blood Count 6.8 K/UL (4.8-10.8) Red Blood Count 3.27 M/UL (4.20-5.40) L Hemoglobin 6.8 G/DL (12.0-16.0) *L Hematocrit 23.3 % (37.0-47.0) L Mean Corpuscular Volume 71 FL (80-99) L Mean Corpuscular Hemoglobin 20.6 PG (27.0-31.0) L Mean Corpuscular Hemoglobin Concent 29.0 G/DL (32.0-36.0) L Red Cell Distribution Width 18.6 % (11.6-14.8) H Platelet Count 341 K/UL (150-450) Mean Platelet Volume 5.8 FL (6.5-10.1) L Neutrophils (%) (Auto) % (45.0-75.0) Lymphocytes (%) (Auto) % (20.0-45.0) Monocytes (%) (Auto) % (1.0-10.0) Eosinophils (%) (Auto) % (0.0-3.0) Basophils (%) (Auto) % (0.0-2.0) Differential Total Cells Counted 100 Neutrophils % (Manual) 78 % (45-75) H Lymphocytes % (Manual) 15 % (20-45) L Monocytes % (Manual) 4 % (1-10) Eosinophils % (Manual) 2 % (0-3) Basophils % (Manual) 1 % (0-2) Band Neutrophils 0 % (0-8) Platelet Estimate Adequate Platelet Morphology Normal Hypochromasia 3+ Anisocytosis 2+ Microcytosis 1+ Sodium Level 136 mEQ/L (135-145) Potassium Level 4.7 mEQ/L (3.4-4.9) Chloride Level 98 mEQ/L (98-107) Carbon Dioxide Level 24 mEQ/L (20-30) Anion Gap 14 (5-15) Blood Urea Nitrogen 9 mg/dL (7-23) Creatinine 0.7 mg/dL (0.5-0.9) Estimat Glomerular Filtration Rate > 60 mL/min (>60) Glucose Level 275 mg/dL (74-106) H Calcium Level 8.3 mg/dL (8.6-10.2) L Magnesium Level 2.0 mg/dL (1.7-2.5) Total Bilirubin 0.2 mg/dL (0.0-1.2) Aspartate Amino Transf (AST/SGOT) 27 U/L (5-40) Alanine Aminotransferase (ALT/SGPT) 24 U/L (3-33) Alkaline Phosphatase 100 U/L (35-104) Total Protein 7.2 g/dL (6.6-8.7) Albumin 4.0 g/dL (3.5-5.2) Globulin 3.2 g/dL Albumin/Globulin Ratio 1.2 (1.0-2.7) Human Chorionic Gonadotropin, Qual Negative Acetone Level Negative (NEGATIVE) Prothrombin Time 9.7 SEC (9.30-11.50) Prothromb Time International Ratio 0.9 (0.9-1.1) Activated Partial Thromboplast Time 25 SEC (23-33) General Appearance: well appearing, no apparent distress, alert Head: normocephalic EENT: normal ENT inspection Neck: full range of motion Respiratory: normal breath sounds, no respiratory distress Cardiovascular: normal rate Gastrointestinal: normal inspection, non tender, soft Rectal: deferred Musculoskeletal: normal inspection Neurologic: normal inspection, alert, oriented x3, responsive Psychiatric: normal inspection, judgement/insight normal, memory normal Skin: normal inspection Lymphatic: normal inspection, no adenopathy Current Medications Current Medications Medications (Trade) Dose Ordered Sig/Alycia Route PRN Reason Start Time Stop Time Status Last Admin Dose Admin Acetaminophen (Tylenol) 650 mg Q4H PRN ORAL fever 06/15/17 14:00 07/15/17 13:59 UNV Al Hydroxide/Mg Hydroxide (Mylanta II) 30 ml Q6H PRN ORAL dyspepsia 06/15/17 14:00 07/15/17 13:59 UNV Atorvastatin Calcium (Lipitor) 10 mg QHS ORAL 06/15/17 21:00 07/15/17 20:59 UNV Dextrose (Dextrose 50%) STAT PRN IV Hypoglycemia 06/15/17 14:00 07/15/17 13:59 UNV Dextrose (Dextrose 50%) STAT PRN IV Hypoglycemia 06/15/17 14:00 07/15/17 13:59 UNV Heparin Sodium (Porcine) (Heparin 5000 units/ml) 5,000 units EVERY 12 HOURS SUBQ 06/15/17 21:00 07/15/17 20:59 UNV Insulin Aspart (NovoLOG) BEFORE MEALS AND HS SUBQ 06/15/17 16:30 07/15/17 16:29 UNV Levothyroxine Sodium (Synthroid) 125 mcg DAILY@0630 ORAL 9/20/17 06:30 07/16/17 06:29 UNV Lorazepam (Ativan 2mg/ml 1ml) 0.5 mg Q4H PRN IV For Anxiety 06/15/17 14:00 06/22/17 13:59 UNV Morphine Sulfate (Morphine Sulfate) 1 mg EVERY 4 HOURS PRN IVP For Pain 06/15/17 14:00 06/22/17 13:59 UNV Ondansetron HCl (Zofran) 4 mg Q6H PRN IVP Nausea & Vomiting 06/15/17 14:00 07/15/17 13:59 UNV Polyethylene Glycol (Miralax) 17 gm HSPRN PRN ORAL Constipation 06/15/17 14:00 07/15/17 13:59 UNV Zolpidem Tartrate (Ambien) 5 mg HSPRN PRN ORAL Insomnia 06/15/17 14:00 06/22/17 13:59 UNV GI: Plan Problems: (1) Dehydration (2) Dysfunctional uterine bleeding (3) DM (diabetes mellitus) (4) Symptomatic anemia (5) Abdominal pain (6) Malnutrition Plan microcytic, hypochromic anemia >> will work up OB stool r/o GI bleed >> will consider endoscopy monitor H&H, prn transfusion >> 2 units today ppi DM mgmt 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 Correia. Thank you for referring this patient, we will follow. Bhavna Jalloh N.P. Jun 15, 2017 14:32
[2017-06-15] MEDS ORDERED: Mylanta II UD 30ml ORAL PRN (15:30)
[2017-06-15] MEDS ORDERED: LORazepam Inj 2mg/ml 1ml IV PRN (15:30)
[2017-06-15] MEDS: NovoLOG Insulin Flexpen SUBQ SCH ×2 (16:23→20:34)
--- NOTE | 2017-06-15 17:32 | Consultation ---
Consult Note Consult Note Ophthalmology Inpatient Consultation Referring Physician: Frederic Avila Reason for Consultation: blurred vision History of the present illness: The patient is a 42-year-old woman sent to the [place] ER after presenting to a clinic with a 3 day history of severe vision loss in the left eye. She describes it as painless loss of all of the vision in the eye. She denies any prior similar history. She was found to be anemic and admitted for blood transfusion. Past medical Hx: DM, HTN Medications: Current Medications Medications (Trade) Dose Ordered Sig/Alycia Route PRN Reason Start Time Stop Time Status Last Admin Dose Admin Acetaminophen (Tylenol) 650 mg Q4H PRN ORAL T>100.5 06/15/17 14:00 07/15/17 13:59 Al Hydroxide/Mg Hydroxide (Mylanta II) 30 ml Q6H PRN ORAL dyspepsia 06/15/17 15:30 07/15/17 15:29 Atorvastatin Calcium (Lipitor) 10 mg QHS ORAL 06/15/17 21:00 07/15/17 20:59 Dextrose (Dextrose 50%) STAT PRN IV Hypoglycemia 06/15/17 14:00 07/15/17 13:59 Heparin Sodium (Porcine) (Heparin 5000 units/ml) 5,000 units EVERY 12 HOURS SUBQ 06/15/17 21:00 07/15/17 20:59 Insulin Aspart (NovoLOG) BEFORE MEALS AND HS SUBQ 06/15/17 16:30 07/15/17 16:29 06/15/17 16:23 Levothyroxine Sodium (Synthroid) 125 mcg DAILY@0630 ORAL 06/16/17 06:30 07/16/17 06:29 Lorazepam (Ativan 2mg/ml 1ml) 0.5 mg Q4H PRN IV For Anxiety 06/15/17 15:30 06/22/17 15:29 Morphine Sulfate (Morphine Sulfate) 1 mg Q4H PRN IVP PAIN 4-10 06/15/17 14:00 06/22/17 13:59 Ondansetron HCl (Zofran) 4 mg Q6H PRN IVP Nausea & Vomiting 06/15/17 15:00 07/15/17 14:59 Polyethylene Glycol (Miralax) 17 gm HSPRN PRN ORAL Constipation 06/15/17 21:00 07/15/17 20:59 Zolpidem Tartrate (Ambien) 5 mg HSPRN PRN ORAL Insomnia 06/15/17 21:00 06/22/17 20:59 Allergies: NKDA Family History: non-contributory Social History: denies tobacco use Review of Systems: General: no fever HEENT: see HPI Cardiac: no chest pain Respiratory: no shortness of breath GI: no nausea : no urinary complaints, notes irregular menstruation MS: no joint pains Derm: no rashes Psychiatric: no depression Neurologic: no numbness, no weakness Heme: no easy bruising Examination: Mini-mental status examination revealed the patient to be awake, alert and oriented to person, place and time with appropriate mood and affect. Visual Acuity at near without correction: OD: J1- = ~20/25- OS: hand motions Intraocular pressure: OD: 17 mmHg OS: 17 mmHg Pupils: equal, round and reactive to light, without afferent pupillary defect in either eye Extra-ocular motility: full OU Confrontational visual figueroa: full to finger counting OU Anterior Segments: External: normal lids and orbits OU Conjunctivae: white and quiet OU Cornea: Clear OU Anterior Chambers: Deep and Quiet OU Irides: Round and flat OU Lenses: cortical cataract OD; dense cortical cataract OS Dilated Fundus Examination (phenylephrine 2.5%, tropicamide 1%): Vitreous: Clear OD; poor view OS Optic Nerves: Sharp OD; poor view OS Vessels: Normal course and caliber OD; poor view OS Maculae: Flat OD; large preretinal hemorrhage OS Periphery: normal OD; limited view OS serum glucose 06/15/17 - 275 . Assessment/Plan Impression: 1. Preretinal/Vitreous hemorrhage OS 2. Cataract OU 3. Diabetes mellitus Assessment and Plan: The patient is a 42-year-old woman admitted for management of anemia who has a 3 day history of severe vision loss in the left eye. She appears to have preretinal &vitreous hemorrhage in the left eye which is likely the result of proliferative diabetic retinopathy. She has cataracts in both eyes worse in the left, which further obscures the view of the fundus. I discussed with the patient at length via spanish interpreter/translator the importance of glycemic control and the risk of further vision loss if her blood sugars aren't adequately controlled. She should have follow up with a retina specialist as soon as possible upon discharge. Thank you very much for this consultation Johann Braov M.D. [phone] JOHANN BRAVO Jun 15, 2017 17:32
[2017-06-15 20:00] VITALS: BP 148/79
[2017-06-15] MEDS: Heparin 5000 units/ml inj SUBQ SCH (20:32)
[2017-06-15] MEDS ORDERED: Zolpidem 5mg tab ORAL PRN (21:00)
[2017-06-15] MEDS ORDERED: Iron Sucrose 100 MG in NS 55 ML IVPB SCH (21:00)
[2017-06-15] MEDS ORDERED: Miralax 17gm pkt ORAL PRN (21:00)
[2017-06-16] VITALS: BP 134/71
[2017-06-16] MEDS ORDERED: Iron Sucrose 100 MG in NS 55 ML IV SCH (02:00)
[2017-06-16 04:00] VITALS: BP 135/65
[2017-06-16 06:19] LABS: MEAN CORPUSCULAR VOLUME 77 FL (80-99)
[2017-06-16] MEDS: NovoLOG Insulin Flexpen SUBQ SCH ×2 (06:20→12:26)
[2017-06-16] MEDS ORDERED: Levothyroxine 125mcg tab ORAL SCH (06:30)
[2017-06-16 06:39] LABS: FERRITIN 9 ng/mL (13-150)
[2017-06-16 06:40] LABS: ALANINE AMINOTRANSFERASE 18 U/L (3-33); ALBUMIN/GLOBULIN RATIO 1.1 (1.0-2.7); ANION GAP 9 (5-15); ASPARTATE AMINO TRANSFERASE 20 U/L (5-40); CALCIUM 8.2 mg/dL (8.6-10.2); CARBON DIOXIDE 25 mEQ/L (20-30); CHLORIDE 105 mEQ/L (98-107); CHOLESTEROL 117 mg/dL (< 200); CHOLESTEROL/HDL RATIO 2.1 (3.3-4.4); CREATININE 0.5 mg/dL (0.5-0.9); GLOMERULAR FILTRATION RATE > 60 mL/min (>60); HEMOLYSIS 2; LDL CHOLESTEROL (CALC.) 49 mg/dL (60-99); POTASSIUM 3.6 mEQ/L (3.4-4.9); SODIUM 139 mEQ/L (135-145); TOTAL PROTEIN 6.8 g/dL (6.6-8.7)
[2017-06-16 07:13] LABS: BASOPHILS % (AUTO) 1.4 % (0.0-2.0); EOSINOPHILS % (AUTO) 4.7 % (0.0-3.0); LYMPHOCYTES % (AUTO) 27.7 % (20.0-45.0); MEAN CORPUSCULAR HEMOGLOBIN 24.3 PG (27.0-31.0); MEAN CORPUSCULAR HGB CONC 31.5 G/DL (32.0-36.0); MEAN PLATELET VOLUME 6.1 FL (6.5-10.1); MONOCYTES % (AUTO) 8.9 % (1.0-10.0); NEUTROPHILS % (AUTO) 57.4 % (45.0-75.0); PLATELET COUNT 307 K/UL (150-450); RED BLOOD COUNT 4.12 M/UL (4.20-5.40); RED CELL DISTRIBUTION WIDTH 18.8 % (11.6-14.8); WHITE BLOOD COUNT 4.4 K/UL (4.8-10.8)
[2017-06-16 08:00] VITALS: BP 105/69
--- NOTE | 2017-06-16 08:42 | General Progress Note ---
Assessment/Plan Problem List: (1) Hypothyroidism ICD Codes: E03.9 - Hypothyroidism, unspecified SNOMED: 68910528 (2) uncontrolled diabetes (3) Hyperglycemia (4) anemia Assessment/Plan add Levemir 8 units daily add Novolog 5 units ac tid continue SSI continue Levothyroxine 125 mcg clinton - increased from 112 mcg repeat TSH in 2 months Subjective Allergies: Coded Allergies: No Known Allergies (Verified , 09/02/07) All Systems: reviewed and negative except above Subjective events noted - interval notes reviewed Objective Last 24 Hour Vital Signs Date Time Temp Pulse Resp B/P (MAP) Pulse Ox O2 Delivery O2 Flow Rate FiO2 06/16/17 04:00 98.1 68 17 135/65 99 Room Air 06/16/17 00:00 98.0 70 18 134/71 98 Room Air 06/15/17 20:00 98.4 70 18 148/79 98 Room Air 06/15/17 13:00 98.7 82 16 127/77 99 Room Air 06/15/17 12:51 97.9 76 14 131/68 99 Room Air 06/15/17 12:22 97.9 76 14 131/68 99 Room Air 06/15/17 10:31 97.9 78 16 121/77 99 Room Air 06/15/17 10:23 97.9 87 16 121/77 99 Room Air Laboratory Tests 06/15/17 10:50: White Blood Count 6.8, Red Blood Count 3.27L, Hemoglobin 6.8*L, Hematocrit 23.3L , Mean Corpuscular Volume 71L, Mean Corpuscular Hemoglobin 20.6L, Mean Corpuscular Hemoglobin Concent 29.0L, Red Cell Distribution Width 18.6H, Platelet Count 341, Mean Platelet Volume 5.8L, Neutrophils (%) (Auto) , Lymphocytes (%) (Auto) , Monocytes (%) (Auto) , Eosinophils (%) (Auto) , Basophils (%) (Auto) , Differential Total Cells Counted 100, Neutrophils % ( Manual) 78H, Lymphocytes % (Manual) 15L, Monocytes % (Manual) 4, Eosinophils % ( Manual) 2, Basophils % (Manual) 1, Band Neutrophils 0, Platelet Estimate Adequate, Platelet Morphology Normal, Hypochromasia 3+, Anisocytosis 2+, Microcytosis 1+, Sodium Level 136, Potassium Level 4.7, Chloride Level 98, Carbon Dioxide Level 24, Anion Gap 14, Blood Urea Nitrogen 9, Creatinine 0.7, Estimat Glomerular Filtration Rate > 60, Glucose Level 275H, Calcium Level 8.3L , Magnesium Level 2.0, Total Bilirubin 0.2, Aspartate Amino Transf (AST/SGOT) 27 , Alanine Aminotransferase (ALT/SGPT) 24, Alkaline Phosphatase 100, Total Protein 7.2, Albumin 4.0, Globulin 3.2, Albumin/Globulin Ratio 1.2, Human Chorionic Gonadotropin, Qual Negative, Acetone Level Negative 06/15/17 12:15: Prothrombin Time 9.7, Prothromb Time International Ratio 0.9, Activated Partial Thromboplast Time 25 06/15/17 22:43: Stool Occult Blood [Pending] 06/16/17 05:35: White Blood Count 4.4L, Red Blood Count 4.12L, Hemoglobin 10.0#L, Hematocrit 31.7#L, Mean Corpuscular Volume 77#L, Mean Corpuscular Hemoglobin 24.3L, Mean Corpuscular Hemoglobin Concent 31.5L, Red Cell Distribution Width 18.8H, Platelet Count 307, Mean Platelet Volume 6.1L, Neutrophils (%) (Auto) 57.4, Lymphocytes (%) (Auto) 27.7, Monocytes (%) (Auto) 8.9, Eosinophils (%) (Auto) 4.7H, Basophils (%) (Auto) 1.4, Sodium Level 139, Potassium Level 3.6, Chloride Level 105, Carbon Dioxide Level 25, Anion Gap 9, Blood Urea Nitrogen 10, Creatinine 0.5, Estimat Glomerular Filtration Rate > 60, Glucose Level 51#L, Calcium Level 8.2L, Total Bilirubin 1.0, Aspartate Amino Transf (AST/SGOT) 20, Alanine Aminotransferase (ALT/SGPT) 18, Alkaline Phosphatase 92, Total Protein 6.8, Albumin 3.6, Globulin 3.2, Albumin/Globulin Ratio 1.1, Reticulocyte Count [ Pending], Iron Level 285H, Total Iron Binding Capacity 326, Percent Iron Saturation 87H, Unsaturated Iron Binding 41L, Ferritin 9L, Triglycerides Level 56, Cholesterol Level 117, LDL Cholesterol 49L, HDL Cholesterol 57, Cholesterol/ HDL Ratio 2.1L, Vitamin B12 Level 693, Folate [Pending], Thyroid Stimulating Hormone (TSH) 26.520H, Free Thyroxine 0.45L Height (Feet): 5 Height (Inches): 1.00 Weight (Pounds): 120 General Appearance: no apparent distress EENT: pale conjunctivae Neck: normal alignment Cardiovascular: normal peripheral pulses Respiratory/Chest: lungs clear Abdomen: normal bowel sounds Objective Item Value Date Time Bedside Blood Glucose 104 mg/dl 06/16/17 0620 Bedside Blood Glucose 392 mg/dl H 06/15/17 2034 Bedside Blood Glucose 276 mg/dl H 06/15/17 1750 Bedside Blood Glucose 285 mg/dl H 06/15/17 1101 Current Medications Medications (Trade) Dose Ordered Sig/Alycia Route PRN Reason Start Time Stop Time Status Last Admin Dose Admin Acetaminophen (Tylenol) 650 mg Q4H PRN ORAL T>100.5 06/15/17 14:00 07/15/17 13:59 Al Hydroxide/Mg Hydroxide (Mylanta II) 30 ml Q6H PRN ORAL dyspepsia 06/15/17 15:30 07/15/17 15:29 Atorvastatin Calcium (Lipitor) 10 mg QHS ORAL 06/15/17 21:00 07/15/17 20:59 06/15/17 20:31 Dextrose (Dextrose 50%) STAT PRN IV Hypoglycemia 06/15/17 14:00 07/15/17 13:59 Heparin Sodium (Porcine) (Heparin 5000 units/ml) 5,000 units EVERY 12 HOURS SUBQ 06/15/17 21:00 07/15/17 20:59 06/15/17 20:32 Insulin Aspart (NovoLOG) BEFORE MEALS AND HS SUBQ 06/15/17 16:30 07/15/17 16:29 06/15/17 20:34 Iron Sucrose 100 mg/Sodium Chloride 60 ml @ 240 mls/hr BEDTIME IV 06/16/17 02:00 06/19/17 21:14 06/16/17 02:25 Levothyroxine Sodium (Synthroid) 125 mcg DAILY@0630 ORAL 06/16/17 06:30 07/16/17 06:29 06/16/17 06:03 Lorazepam (Ativan 2mg/ml 1ml) 0.5 mg Q4H PRN IV For Anxiety 06/15/17 15:30 06/22/17 15:29 Morphine Sulfate (Morphine Sulfate) 1 mg Q4H PRN IVP PAIN 4-10 06/15/17 14:00 06/22/17 13:59 Ondansetron HCl (Zofran) 4 mg Q6H PRN IVP Nausea & Vomiting 06/15/17 15:00 07/15/17 14:59 Pantoprazole (Protonix) 40 mg DAILY ORAL 06/16/17 09:00 07/16/17 08:59 Polyethylene Glycol (Miralax) 17 gm HSPRN PRN ORAL Constipation 06/15/17 21:00 07/15/17 20:59 Zolpidem Tartrate (Ambien) 5 mg HSPRN PRN ORAL Insomnia 06/15/17 21:00 06/22/17 20:59 JACQUELINE PEOPLES Jun 16, 2017 08:42
[2017-06-16] MEDS ORDERED: Levemir Flexpen SUBQ SCH (09:00)
[2017-06-16] MEDS: Heparin 5000 units/ml inj SUBQ SCH (09:05)
--- NOTE | 2017-06-16 09:45 | History and Physical Report ---
DATE OF ADMISSION: 06/15/2017 TIME SEEN: 3 p.m. CONSULTANTS: 1. . 2. Nemesio Torres M.D. 3. Amando Holbrook M.D. 4. Edin Correia M.D. 5. Charbel Welch M.D. CHIEF COMPLAINT: Left eye blurry, weakness, and lethargy. Brief History: This is a 42-year-old female who at this time presents with the above-mentioned diagnoses, diagnosed with left diabetic retinopathy, anemia, and diabetes, and admitted to medical floor for further treatment. Currently, calm in bed, slightly weak, complaining of left eye blurriness. No complaints. PAST MEDICAL HISTORY: Diabetes. PAST SURGICAL HISTORY: . Medications: Synthroid, Lipitor, MiraLAX, Ambien, heparin, NovoLog, Ativan, Mylanta, Zofran, Tylenol, and morphine. ALLERGIES: Denies. SOCIAL HISTORY: No smoking. No alcohol. No intravenous drug use. FAMILY HISTORY: Noncontributory. Review Of Systems: No chest pain. No shortness of breath. No nausea, vomiting, or diarrhea. PHYSICAL EXAMINATION: GENERAL: Calm in bed, alert and oriented x3, in no acute distress. Vital Signs: Temperature 98 degrees, pulse 82, respirations 16, and blood pressure 127/77. CARDIOVASCULAR: No murmur. LUNGS: Distant and clear. ABDOMEN: Bowel sounds are positive. Nontender and nondistended. EXTREMITIES: No clubbing, cyanosis, or edema. NEUROLOGIC: Left eye blur, otherwise normal neuro exam. Laboratory And Diagnostic Data: Labs at this time show hemoglobin 6.8, otherwise CBC is normal. Glucose 275 and calcium 8.3, otherwise BMP is normal. INR is 0.9. Urine acetone is negative. ASSESSMENT: 1. Severe anemia. 2. Left diabetic retinopathy. 3. Diabetes. PLAN: 1. Continue pre-medications. 2. OT, PT, and dietary evaluation. 3. Transfuse. 4. Stool guaiac x3. 5. Resume home medications. 6. Accu-Chek sliding scale. 7. CBC and BMP in the morning. 8. , Dr. Torres, Dr. Holbrook, Dr. Correia, and Dr. Welch to consult. 9. We will continue to follow this patient. Frederic Avila D.O. DR: JER JOB#: [id number] CC:
--- NOTE | 2017-06-16 10:15 | Consultation ---
DATE OF CONSULTATION: 06/15/2017 HEMATOLOGY/ONCOLOGY CONSULTATION CONSULTING PHYSICIAN: Maverick Welch M.D. REQUESTING PHYSICIAN: Frederic Avila D.O. REASON FOR CONSULTATION: Evaluation of microcytic anemia. IDENTIFICATION DATA: Dear Dr. Frederic Avila: The patient is a pleasant 42-year-old female, who presents to the ER with worsening blurry vision on the left eye x8 days. She denies any pain in her eyes. She feels her eyes have been very blurry. She was seen by Ophthalmology in-house, Dr. Johann Bravo, and was noted to have a vitreous hemorrhage and recommended blood sugar control as well as retinal specialist. She was noted to be microcytic with anemia. Hematology service was consulted for further evaluation and treatment as well as the GI Service, who noted in the past to have iron-deficiency anemia, is on ferrous sulfate, but continues to be iron deficient. PAST MEDICAL HISTORY: Diabetes mellitus and hypertension. PAST SURGICAL HISTORY: None noted. Current Medications: Levothyroxine, , ibuprofen, multivitamin, insulin . ALLERGIES: No known drug allergies. FAMILY HISTORY: Noncontributory. Review of systems: Constitutional: No fever, chills, or night sweats. Skin: No rashes, bumps, or itching. HEENT: No headache, hearing or vision changes. Breasts: No lumps, pain, or discharge. Pulmonary: No cough, sputum, or shortness of breath. Gastrointestinal: No nausea, vomiting, or diarrhea. Genitourinary: No dysuria, frequency, or urgency. Musculoskeletal: No joint swelling, muscle pain, or trauma. PHYSICAL EXAMINATION: HEENT: Some visual changes are noted as per Ophthalmology note. Laboratory Data: WBC is 6.8, hemoglobin 6.8, hematocrit 24, and platelet count 301,000. Ferritin in the past has been 6. ASSESSMENT AND PLAN: 1. Anemia secondary to iron deficiency, microcytic. Begin the patient on IV iron. 2. Decreased hemoglobin and hematocrit, rule out gastrointestinal bleed. Code status pending. Consider endoscopy as per Gastroenterology service. The patient is status post transfusion. 3. Dehydration. Administer fluids as needed. 4. Dysfunctional uterine bleeding. Administer blood as needed as well. 5. Abdominal pain. Currently GI Service is on board. 6. Malnutrition. Feed the patient as needed. 7. Vision loss. I appreciate the consultation. Maverick Welch M.D. DR: William JOB#: [id number] CC:
--- NOTE | 2017-06-16 10:52 | GI Progress Note ---
Assessment/Plan Problems: (1) Dysfunctional uterine bleeding ICD Codes: N93.8 - Other specified abnormal uterine and vaginal bleeding SNOMED: 62151860 (2) Symptomatic anemia ICD Codes: D64.9 - Anemia, unspecified SNOMED: 757623176 (3) Diabetes mellitus out of control ICD Codes: E11.65 - Diabetes mellitus out of control SNOMED: 138551859 Qualifiers: Qualified Codes: E13.8 - Other specified diabetes mellitus with unspecified complications; E13.65 - Other specified diabetes mellitus with hyperglycemia (4) Abdominal pain ICD Codes: R10.9 - Abdominal pain SNOMED: 70130006 (5) Malnutrition ICD Codes: E46 - Malnutrition SNOMED: 0134481 (6) Hypothyroidism ICD Codes: E03.9 - Hypothyroidism, unspecified SNOMED: 14881205 Status: stable Status Narrative Discussed with Dr. Correia. 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 labs Subjective Gastrointestinal/Abdominal: Reports: no symptoms Objective Last 24 Hour Vital Signs Date Time Temp Pulse Resp B/P (MAP) Pulse Ox O2 Delivery O2 Flow Rate FiO2 06/16/17 08:00 99.0 76 18 105/69 99 Room Air 06/16/17 04:00 98.1 68 17 135/65 99 Room Air 06/16/17 00:00 98.0 70 18 134/71 98 Room Air 06/15/17 20:00 98.4 70 18 148/79 98 Room Air 06/15/17 13:00 98.7 82 16 127/77 99 Room Air 06/15/17 12:51 97.9 76 14 131/68 99 Room Air 06/15/17 12:22 97.9 76 14 131/68 99 Room Air Laboratory Tests Test 06/15/17 10:50 06/15/17 12:15 06/15/17 22:43 06/16/17 05:35 White Blood Count 6.8 K/UL (4.8-10.8) 4.4 K/UL (4.8-10.8) L Red Blood Count 3.27 M/UL (4.20-5.40) L 4.12 M/UL (4.20-5.40) L Hemoglobin 6.8 G/DL (12.0-16.0) *L 10.0 G/DL (12.0-16.0) #L Hematocrit 23.3 % (37.0-47.0) L 31.7 % (37.0-47.0) #L Mean Corpuscular Volume 71 FL (80-99) L 77 FL (80-99) #L Mean Corpuscular Hemoglobin 20.6 PG (27.0-31.0) L 24.3 PG (27.0-31.0) L Mean Corpuscular Hemoglobin Concent 29.0 G/DL (32.0-36.0) L 31.5 G/DL (32.0-36.0) L Red Cell Distribution Width 18.6 % (11.6-14.8) H 18.8 % (11.6-14.8) H Platelet Count 341 K/UL (150-450) 307 K/UL (150-450) Mean Platelet Volume 5.8 FL (6.5-10.1) L 6.1 FL (6.5-10.1) L Neutrophils (%) (Auto) % (45.0-75.0) 57.4 % (45.0-75.0) Lymphocytes (%) (Auto) % (20.0-45.0) 27.7 % (20.0-45.0) Monocytes (%) (Auto) % (1.0-10.0) 8.9 % (1.0-10.0) Eosinophils (%) (Auto) % (0.0-3.0) 4.7 % (0.0-3.0) H Basophils (%) (Auto) % (0.0-2.0) 1.4 % (0.0-2.0) Differential Total Cells Counted 100 Neutrophils % (Manual) 78 % (45-75) H Lymphocytes % (Manual) 15 % (20-45) L Monocytes % (Manual) 4 % (1-10) Eosinophils % (Manual) 2 % (0-3) Basophils % (Manual) 1 % (0-2) Band Neutrophils 0 % (0-8) Platelet Estimate Adequate Platelet Morphology Normal Hypochromasia 3+ Anisocytosis 2+ Microcytosis 1+ Sodium Level 136 mEQ/L (135-145) 139 mEQ/L (135-145) Potassium Level 4.7 mEQ/L (3.4-4.9) 3.6 mEQ/L (3.4-4.9) Chloride Level 98 mEQ/L (98-107) 105 mEQ/L (98-107) Carbon Dioxide Level 24 mEQ/L (20-30) 25 mEQ/L (20-30) Anion Gap 14 (5-15) 9 (5-15) Blood Urea Nitrogen 9 mg/dL (7-23) 10 mg/dL (7-23) Creatinine 0.7 mg/dL (0.5-0.9) 0.5 mg/dL (0.5-0.9) Estimat Glomerular Filtration Rate > 60 mL/min (>60) > 60 mL/min (>60) Glucose Level 275 mg/dL (74-106) H 51 mg/dL (74-106) #L Calcium Level 8.3 mg/dL (8.6-10.2) L 8.2 mg/dL (8.6-10.2) L Magnesium Level 2.0 mg/dL (1.7-2.5) Total Bilirubin 0.2 mg/dL (0.0-1.2) 1.0 mg/dL (0.0-1.2) Aspartate Amino Transf (AST/SGOT) 27 U/L (5-40) 20 U/L (5-40) Alanine Aminotransferase (ALT/SGPT) 24 U/L (3-33) 18 U/L (3-33) Alkaline Phosphatase 100 U/L (35-104) 92 U/L (35-104) Total Protein 7.2 g/dL (6.6-8.7) 6.8 g/dL (6.6-8.7) Albumin 4.0 g/dL (3.5-5.2) 3.6 g/dL (3.5-5.2) Globulin 3.2 g/dL 3.2 g/dL Albumin/Globulin Ratio 1.2 (1.0-2.7) 1.1 (1.0-2.7) Human Chorionic Gonadotropin, Qual Negative Acetone Level Negative (NEGATIVE) Prothrombin Time 9.7 SEC (9.30-11.50) Prothromb Time International Ratio 0.9 (0.9-1.1) Activated Partial Thromboplast Time 25 SEC (23-33) Stool Occult Blood Pending Reticulocyte Count Pending Iron Level 285 ug/dL (37-145) H Total Iron Binding Capacity 326 ug/dL (250-400) Percent Iron Saturation 87 % (15-50) H Unsaturated Iron Binding 41 ug/dL (112-346) L Ferritin 9 ng/mL (13-150) L Triglycerides Level 56 mg/dL (< 150) Cholesterol Level 117 mg/dL (< 200) LDL Cholesterol 49 mg/dL (60-99) L HDL Cholesterol 57 mg/dL (> 60) Cholesterol/HDL Ratio 2.1 (3.3-4.4) L Vitamin B12 Level 693 pg/mL (211-946) Folate Pending Thyroid Stimulating Hormone (TSH) 26.520 uIU/mL (0.300-4.500) Free Thyroxine 0.45 ng/dL (0.86-1.85) L Height (Feet): 5 Height (Inches): 1.00 Weight (Pounds): 120 General Appearance: no apparent distress, alert Cardiovascular: normal rate Respiratory/Chest: normal breath sounds, no respiratory distress Abdominal Exam: normal bowel sounds, non tender, soft Extremities: normal range of motion Bhavna Early N.P. Jun 16, 2017 10:52
[2017-06-16] MEDS ORDERED: NovoLOG Insulin Flexpen SUBQ SCH (11:50)
[2017-06-16 12:00] VITALS: BP 126/79
--- NOTE | 2017-06-16 12:28 | Pulmonology Progress Note ---
Assessment/Plan Problems: (1) Dysfunctional uterine bleeding (2) DM (diabetes mellitus) (3) Symptomatic anemia (4) Blurry vision, left eye Assessment/Plan s/p blood tranfusion h/h better pt needs to see a retina specialist as outpatient. Ophthalmology note appreciated Subjective ROS Limited/Unobtainable: No Constitutional: Reports: no symptoms HEENT: Repors: no symptoms Allergies: Coded Allergies: No Known Allergies (Verified , 09/02/07) Objective Last 24 Hour Vital Signs Date Time Temp Pulse Resp B/P (MAP) Pulse Ox O2 Delivery O2 Flow Rate FiO2 06/16/17 08:00 99.0 76 18 105/69 99 Room Air 06/16/17 04:00 98.1 68 17 135/65 99 Room Air 06/16/17 00:00 98.0 70 18 134/71 98 Room Air 06/15/17 20:00 98.4 70 18 148/79 98 Room Air 06/15/17 13:00 98.7 82 16 127/77 99 Room Air 06/15/17 12:51 97.9 76 14 131/68 99 Room Air Intake and Output 06/16/17 06/17/17 19:00 07:00 # Bowel Movements 1 General Appearance: WD/WN, no acute distress HEENT: normocephalic Respiratory/Chest: chest wall non-tender, lungs clear Cardiovascular: normal peripheral pulses, normal rate Abdomen: normal bowel sounds, soft, non tender Extremities: no cyanosis, no clubbing Neurologic/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: 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-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 normal, no motor/sensory deficits Laboratory Tests 06/15/17 22:43: Stool Occult Blood Negative 06/16/17 05:35: White Blood Count 4.4L, Red Blood Count 4.12L, Hemoglobin 10.0#L, Hematocrit 31.7#L, Mean Corpuscular Volume 77#L, Mean Corpuscular Hemoglobin 24.3L, Mean Corpuscular Hemoglobin Concent 31.5L, Red Cell Distribution Width 18.8H, Platelet Count 307, Mean Platelet Volume 6.1L, Neutrophils (%) (Auto) 57.4, Lymphocytes (%) (Auto) 27.7, Monocytes (%) (Auto) 8.9, Eosinophils (%) (Auto) 4.7H, Basophils (%) (Auto) 1.4, Reticulocyte Count 0.6, Sodium Level 139, Potassium Level 3.6, Chloride Level 105, Carbon Dioxide Level 25, Anion Gap 9, Blood Urea Nitrogen 10, Creatinine 0.5, Estimat Glomerular Filtration Rate > 60 , Glucose Level 51#L, Calcium Level 8.2L, Iron Level 285H, Total Iron Binding Capacity 326, Percent Iron Saturation 87H, Unsaturated Iron Binding 41L, Ferritin 9L, Total Bilirubin 1.0, Aspartate Amino Transf (AST/SGOT) 20, Alanine Aminotransferase (ALT/SGPT) 18, Alkaline Phosphatase 92, Total Protein 6.8, Albumin 3.6, Globulin 3.2, Albumin/Globulin Ratio 1.1, Triglycerides Level 56, Cholesterol Level 117, LDL Cholesterol 49L, HDL Cholesterol 57, Cholesterol/HDL Ratio 2.1L, Vitamin B12 Level 693, Folate [Pending], Thyroid Stimulating Hormone (TSH) 26.520H, Free Thyroxine 0.45L Current Medications Medications (Trade) Dose Ordered Sig/Alycia Route PRN Reason Start Time Stop Time Status Last Admin Dose Admin Acetaminophen (Tylenol) 650 mg Q4H PRN ORAL T>100.5 06/15/17 14:00 07/15/17 13:59 Al Hydroxide/Mg Hydroxide (Mylanta II) 30 ml Q6H PRN ORAL dyspepsia 06/15/17 15:30 07/15/17 15:29 Atorvastatin Calcium (Lipitor) 10 mg QHS ORAL 06/15/17 21:00 07/15/17 20:59 06/15/17 20:31 Dextrose (Dextrose 50%) STAT PRN IV Hypoglycemia 06/15/17 14:00 07/15/17 13:59 Heparin Sodium (Porcine) (Heparin 5000 units/ml) 5,000 units EVERY 12 HOURS SUBQ 06/15/17 21:00 07/15/17 20:59 06/16/17 09:05 Insulin Aspart (NovoLOG) BEFORE MEALS AND HS SUBQ 06/15/17 16:30 07/15/17 16:29 06/15/17 20:34 Insulin Aspart (NovoLOG) 5 units NOVOTIAC SUBQ 06/16/17 11:50 07/16/17 11:49 Insulin Detemir (Levemir) 8 units DAILY SUBQ 06/16/17 09:00 07/16/17 08:59 06/16/17 10:30 Levothyroxine Sodium (Synthroid) 125 mcg DAILY@0630 ORAL 06/16/17 06:30 07/16/17 06:29 06/16/17 06:03 Lorazepam (Ativan 2mg/ml 1ml) 0.5 mg Q4H PRN IV For Anxiety 06/15/17 15:30 06/22/17 15:29 Morphine Sulfate (Morphine Sulfate) 1 mg Q4H PRN IVP PAIN 4-10 06/15/17 14:00 06/22/17 13:59 Ondansetron HCl (Zofran) 4 mg Q6H PRN IVP Nausea & Vomiting 06/15/17 15:00 07/15/17 14:59 Pantoprazole (Protonix) 40 mg DAILY ORAL 06/16/17 09:00 07/16/17 08:59 06/16/17 09:03 Polyethylene Glycol (Miralax) 17 gm HSPRN PRN ORAL Constipation 06/15/17 21:00 07/15/17 20:59 Zolpidem Tartrate (Ambien) 5 mg HSPRN PRN ORAL Insomnia 06/15/17 21:00 06/22/17 20:59 BRENT GOLDSTEIN Jun 16, 2017 12:28
--- NOTE | 2017-06-16 15:01 | General Progress Note ---
Assessment/Plan Problem List: (1) Blurry vision, left eye ICD Codes: H53.8 - Other visual disturbances SNOMED: 956635811 (2) Anemia (3) uncontrolled diabetes Status: stable, progressing, tolerating diet Assessment/Plan ot pt diet dc if clear by team Subjective Constitutional: Reports: weakness Allergies: Coded Allergies: No Known Allergies (Verified , 09/02/07) All Systems: reviewed and negative except above Subjective calm in bed Objective Last 24 Hour Vital Signs Date Time Temp Pulse Resp B/P (MAP) Pulse Ox O2 Delivery O2 Flow Rate FiO2 06/16/17 12:00 97.3 80 18 126/79 99 Room Air 06/16/17 08:00 99.0 76 18 105/69 99 Room Air 06/16/17 04:00 98.1 68 17 135/65 99 Room Air 06/16/17 00:00 98.0 70 18 134/71 98 Room Air 06/15/17 20:00 98.4 70 18 148/79 98 Room Air Intake and Output 06/16/17 06/17/17 19:00 07:00 # Bowel Movements 1 Laboratory Tests 06/15/17 22:43: Stool Occult Blood Negative 06/16/17 05:35: White Blood Count 4.4L, Red Blood Count 4.12L, Hemoglobin 10.0#L, Hematocrit 31.7#L, Mean Corpuscular Volume 77#L, Mean Corpuscular Hemoglobin 24.3L, Mean Corpuscular Hemoglobin Concent 31.5L, Red Cell Distribution Width 18.8H, Platelet Count 307, Mean Platelet Volume 6.1L, Neutrophils (%) (Auto) 57.4, Lymphocytes (%) (Auto) 27.7, Monocytes (%) (Auto) 8.9, Eosinophils (%) (Auto) 4.7H, Basophils (%) (Auto) 1.4, Reticulocyte Count 0.6, Sodium Level 139, Potassium Level 3.6, Chloride Level 105, Carbon Dioxide Level 25, Anion Gap 9, Blood Urea Nitrogen 10, Creatinine 0.5, Estimat Glomerular Filtration Rate > 60 , Glucose Level 51#L, Calcium Level 8.2L, Iron Level 285H, Total Iron Binding Capacity 326, Percent Iron Saturation 87H, Unsaturated Iron Binding 41L, Ferritin 9L, Total Bilirubin 1.0, Aspartate Amino Transf (AST/SGOT) 20, Alanine Aminotransferase (ALT/SGPT) 18, Alkaline Phosphatase 92, Total Protein 6.8, Albumin 3.6, Globulin 3.2, Albumin/Globulin Ratio 1.1, Triglycerides Level 56, Cholesterol Level 117, LDL Cholesterol 49L, HDL Cholesterol 57, Cholesterol/HDL Ratio 2.1L, Vitamin B12 Level 693, Folate [Pending], Thyroid Stimulating Hormone (TSH) 26.520H, Free Thyroxine 0.45L Height (Feet): 5 Height (Inches): 1.00 Weight (Pounds): 120 General Appearance: alert EENT: normal ENT inspection Neck: normal alignment Cardiovascular: normal peripheral pulses, normal rate, regular rhythm Respiratory/Chest: chest wall non-tender, lungs clear, normal breath sounds Abdomen: normal bowel sounds, non tender, soft Extremities: normal inspection Edema: no edema noted Arm (L), no edema noted Arm (R), no edema noted Leg (L), no edema noted Leg (R), no edema noted Pedal (L), no edema noted Pedal (R), no edema noted Generalized Neurologic: responsive, motor weakness Skin: normal pigmentation, warm/dry MEHDI JAFFE Jun 16, 2017 15:01
--- NOTE | 2017-06-16 16:01 | General Progress Note ---
Assessment/Plan Assessment/Plan 1. Anemia secondary to iron deficiency, mixed picture. Continue ferrous sulfate as outpatient. --> s/p transfusion 2. Decreased hemoglobin and hematocrit, rule out gastrointestinal bleed. --> occult blood negative 3. Dehydration. Administer fluids as needed. 4. Dysfunctional uterine bleeding. Administer blood as needed as well. 5. Abdominal pain. Currently GI Service is on board. 6. Malnutrition. Feed the patient as needed. 7. Vision loss. Subjective Constitutional: Reports: no symptoms HEENT: Reports: no symptoms Cardiovascular: Reports: no symptoms Respiratory: Reports: no symptoms Gastrointestinal/Abdominal: Reports: no symptoms Genitourinary: Reports: no symptoms Neurologic/Psychiatric: Reports: no symptoms Endocrine: Reports: no symptoms Hematologic/Lymphatic: Reports: anemia Allergies: Coded Allergies: No Known Allergies (Verified , 09/02/07) Subjective calm, HH better, post blood transfusion Objective Last 24 Hour Vital Signs Date Time Temp Pulse Resp B/P (MAP) Pulse Ox O2 Delivery O2 Flow Rate FiO2 06/16/17 12:00 97.3 80 18 126/79 99 Room Air 06/16/17 08:00 99.0 76 18 105/69 99 Room Air 06/16/17 04:00 98.1 68 17 135/65 99 Room Air 06/16/17 00:00 98.0 70 18 134/71 98 Room Air 06/15/17 20:00 98.4 70 18 148/79 98 Room Air Intake and Output 06/16/17 06/17/17 19:00 07:00 # Bowel Movements 1 Laboratory Tests 06/15/17 22:43: Stool Occult Blood Negative 06/16/17 05:35: White Blood Count 4.4L, Red Blood Count 4.12L, Hemoglobin 10.0#L, Hematocrit 31.7#L, Mean Corpuscular Volume 77#L, Mean Corpuscular Hemoglobin 24.3L, Mean Corpuscular Hemoglobin Concent 31.5L, Red Cell Distribution Width 18.8H, Platelet Count 307, Mean Platelet Volume 6.1L, Neutrophils (%) (Auto) 57.4, Lymphocytes (%) (Auto) 27.7, Monocytes (%) (Auto) 8.9, Eosinophils (%) (Auto) 4.7H, Basophils (%) (Auto) 1.4, Reticulocyte Count 0.6, Sodium Level 139, Potassium Level 3.6, Chloride Level 105, Carbon Dioxide Level 25, Anion Gap 9, Blood Urea Nitrogen 10, Creatinine 0.5, Estimat Glomerular Filtration Rate > 60 , Glucose Level 51#L, Calcium Level 8.2L, Iron Level 285H, Total Iron Binding Capacity 326, Percent Iron Saturation 87H, Unsaturated Iron Binding 41L, Ferritin 9L, Total Bilirubin 1.0, Aspartate Amino Transf (AST/SGOT) 20, Alanine Aminotransferase (ALT/SGPT) 18, Alkaline Phosphatase 92, Total Protein 6.8, Albumin 3.6, Globulin 3.2, Albumin/Globulin Ratio 1.1, Triglycerides Level 56, Cholesterol Level 117, LDL Cholesterol 49L, HDL Cholesterol 57, Cholesterol/HDL Ratio 2.1L, Vitamin B12 Level 693, Folate [Pending], Thyroid Stimulating Hormone (TSH) 26.520H, Free Thyroxine 0.45L Height (Feet): 5 Height (Inches): 1.00 Weight (Pounds): 120 General Appearance: no apparent distress EENT: normal ENT inspection Neck: normal alignment Cardiovascular: normal rate Respiratory/Chest: no accessory muscle use Abdomen: no organomegaly, no mass Skin: normal pigmentation, warm/dry Maverick Welch Jun 16, 2017 16:01
[2017-06-16] MEDS ORDERED: Tubing IV Secondary IV ONE (16:25)
[2017-06-16] MEDS ORDERED: Tubing Blood Filter IV ONE (16:25)
[2017-06-16] MEDS ORDERED: NS 275ml ONE (16:25)
[2017-06-18 10:46] LABS: OTHERS PATHOLOGIST COMMENT
--- NOTE | 2017-06-18 16:00 | Discharge Summary 2 SIG ---
DATE OF ADMISSION: 06/15/2017 DATE OF DISCHARGE: 06/16/2017 CONSULTANTS: 1. Maverick Welch M.D. 2. Nemesio Torres M.D. 3. Edin Correia M.D. 4. Amando Holbrook M.D. 5. Johann Bravo M.D. Brief Hospital Course: The patient is a 42-year-old female, who presented to ED complaining of blurry vision on the left eye for eight days. Denied any pain. Unable to visualize properly. Denied any symptoms to the right eye. The patient has history of diabetes mellitus and states her sugars are not well controlled. On evaluation at ED, blood work showed elevated glucose to 275. She had anemia with hemoglobin of 6.8 and hematocrit of 23. The patient is not in DKA. She was ordered two units of packed RBC transfusion and was admitted to medical floor for evaluation of blurry vision and anemia. She underwent ophthalmic examination and on evaluation intra-ocular pressure on both eyes were 17 mmHg. Visual acuity on the left eye only visible with hand motion. She was diagnosed to have a preretinal/vitreous hemorrhage on the left eye and cataract on both eyes. Preretinal and vitreous hemorrhage likely result of proliferative diabetic retinopathy and was advised to follow up with a retina specialist as soon as possible upon discharge. Her blood sugars were monitored. She was given Levemir 8 units daily with NovoLog 5 units before meals twice daily and levothyroxine was increased to 125 mcg daily. Anemia workup done showed iron deficiency and was given IV iron. Post transfusion hemoglobin was stable. Stool OB was negative x1. Iron level was elevated to 285 and Venofer was discontinued. She was eventually discharged home. FINAL DIAGNOSES: 1. Blurry vision on left eye secondary to preretinal/vitreous hemorrhage. 2. Diabetes mellitus with diabetic retinopathy. 3. Cataract, both eyes. 4. Anemia secondary to iron deficiency. 5. Dysfunctional uterine bleed. 6. Diabetes mellitus out of control. 7. Hypothyroidism. 8. Symptomatic anemia. 9. Acute anemia requiring blood transfusion. DISPOSITION: The patient was discharged home. DISCHARGE MEDICATIONS: Refer to medication list. Followup: The patient was advised need to follow up with retinal specialist as an outpatient and to have repeat TSH in two months. Follow up with PMD in a week. Frederic Avila D.O. I have been assigned to dictate discharge summary on this account and I was not involved in the patient's management. Simona Light N.P. DR: ABIGAIL JOB#: [id number] CC:
== END 2017-06-16 16:45 | disposition home or self-care (01) | DRG 82 ==
LOC: EMR 10:45 → 3E 11:28 → EDBEDREQ 12:04 → 3E 15:34
PROC: 30233N1 Transfusion of Nonautologous Red Blood Cells into Peripheral Vein, Percutaneous Approach (ICD-10-PCS; principal; 2017-06-15)
DX: E11.3592 Type 2 diabetes mellitus with proliferative diabetic retinopathy without macular edema, left eye (principal); E46 Unspecified protein-calorie malnutrition; E11.65 Type 2 diabetes mellitus with hyperglycemia; H43.12 Vitreous hemorrhage, left eye; N93.8 Other specified abnormal uterine and vaginal bleeding; D50.0 Iron deficiency anemia secondary to blood loss (chronic); E86.0 Dehydration; I10 Essential (primary) hypertension; H26.9 Unspecified cataract; E03.9 Hypothyroidism, unspecified; Z91.81 History of falling; Z68.22 Body mass index [BMI] 22.0-22.9, adult; Z79.4 Long term (current) use of insulin; Z79.899 Other long term (current) drug therapy
CPT/HCPCS: 36415; 80053; 80061; 82009; 82270; 82607; 82728; 82746; 82962; 83540; 83550; 83735; 84439; 84443; 84703; 85007; 85025; 85044; 85610; 85730; 86850; 86900; 86901; 86920; 97803; 99285; J1815; S5561

== ENCOUNTER 2017-07-21 08:54 | Emergency (ER) | payer MEDICAID ==
[~2017-07-21] VITALS: Ht 149.9 cm; Wt 49.9 kg
[2017-07-21 09:45] VITALS: BP 123/63
--- NOTE | 2017-07-21 09:48 | Emergency Room Report ---
History of Present Illness General Chief Complaint: Vaginal Source: Patient, Medical Record Present Illness HPI 42-year-old female presents ED for evaluation. His last 8 days she's been having vaginal bleeding with clots. Patient states she is having irregular periods. Denies any abdominal pain. Denies any fevers or chills. Denies nausea or vomiting. Denies flank pain. Denies any blood in his. No aggravating relieving factors. Denies any other associated symptoms Allergies: Coded Allergies: No Known Allergies (Verified , 09/02/07) Patient History Past Medical History: DM, HTN, seizures Past Surgical History: none Pertinent Family History: none Social History: Denies: smoking, alcohol use, drug use Last Menstrual Period: Unk. "often" Now: No Immunizations: UTD Reviewed Nursing Documentation: PMH: Agreed, PSxH: Agreed Nursing Documentation-PMH Hx Cardiac Problems: No Hx Hypertension: Yes Hx Diabetes: Yes Hx Cancer: No Hx Gastrointestinal Problems: No Hx Neurological Problems: No Hx Cerebrovascular Accident: No Hx Transient Ischemic Attacks: No Hx Dementia: No Hx Alzheimer's Disease: No Hx Parkinson's Disease: No Hx Meningitis: No Hx Encephalitis: No Hx Seizures: Yes Hx Epilepsy: No Hx Multiple Sclerosis: No Hx Cerebral Palsy: No Hx Amyotrophic Lat Sclerosis: No Hx Guillian-[place] Syndrome: No Hx Paralysis: No Hx Peripheral Neuropathy: No Hx Spinal Cord Injury: No Hx Head Trauma: Yes - Fell in the shower and hit her head one day prior to admission Hx Traumatic Brain Injury: No Hx Memory Loss: No Hx Concentration Difficulty: Yes Hx Speech Problem: No Hx Tremors: No Hx Vertigo: No Hx Dizziness: Yes Hx Syncope: No Hx Headaches: Yes Hx Aphasia: No Hx Dysphasia: No Hx Numbness: No Hx Weakness: No Hx Fatigue: Yes Hx Neurologic Surgery: No Hx Brain Shunt: No Review of Systems All Other Systems: negative except mentioned in HPI Physical Exam Vital Signs Date Time Temp Pulse Resp B/P (MAP) Pulse Ox O2 Delivery O2 Flow Rate FiO2 07/21/17 08:57 97.9 74 19 92/58 100 Sp02 EP Interpretation: reviewed, normal General Appearance: no apparent distress, alert, GCS 15, non-toxic Head: normocephalic, atraumatic Eyes: bilateral eye normal inspection, bilateral eye PERRL ENT: hearing grossly normal, normal pharynx, no angioedema, normal voice Neck: full range of motion, supple/symm/no masses Respiratory: chest non-tender, lungs clear, normal breath sounds, speaking full sentences Cardiovascular #1: regular rate, rhythm, no edema Cardiovascular #2: 2+ carotid (R), 2+ carotid (L), 2+ radial (R), 2+ radial (L) , 2+ dorsalis pedis (R), 2+ dorsalis pedis (L) Gastrointestinal: normal bowel sounds, non tender, soft, non-distended, no guarding, no rebound Rectal: deferred Genitourinary: normal inspection, no CVA tenderness Musculoskeletal: back normal, gait/station normal, normal range of motion, non- tender Neurologic: alert, oriented x3, responsive, motor strength/tone normal, sensory intact, speech normal Psychiatric: judgement/insight normal, memory normal, mood/affect normal, no suicidal/homicidal ideation Reflexes: 3+ bicep (R), 3+ bicep (L), 3+ tricep (R), 3+ tricep (L), 3+ knee (R) , 3+ knee (L) Skin: normal color, no rash, warm/dry, well hydrated Lymphatic: no adenopathy Medical Decision Making Diagnostic Impression: Primary Impression: DUB (dysfunctional uterine bleeding) Additional Impression: Vaginal bleeding ER Course Hospital Course 42-year-old F presents to ED with vaginal bleeding Differential diagnosis includes- ovarian cyst, torsion, ectopic , DUB Clinical course Patient placed on stretcher. After initial history and physical I ordered labs , IV fluids Labs - no leukocytosis, Hb/Hct stable, electrolytes ok, Likely dysfunctional uterine bleeding. Patient has been here in the past with low hemoglobin/hematocrit require transfusion. Patient will not require transfusion at this time he can be discharged. Recommended close followup with PROFILING MACHINE OPERATOR I feel this is a highly complex case requiring extensive working including EKG/ Rhythm strip, Xray/CT/US, Blood/urine lab work, repeat exams while in ED, and administration of strong opiates/narcotics for pain control, admission to hospital or close patient follow up. Diagnosis - DUB, vaginal bleeding Stable and discharged to home. Followup with PMD. Return to ED if symptoms recur or worsen Labs Test 07/21/17 09:30 White Blood Count 3.8 K/UL (4.8-10.8) Red Blood Count 3.22 M/UL (4.20-5.40) Hemoglobin 8.1 G/DL (12.0-16.0) Hematocrit 26.0 % (37.0-47.0) Mean Corpuscular Volume 81 FL (80-99) Mean Corpuscular Hemoglobin 25.2 PG (27.0-31.0) Mean Corpuscular Hemoglobin Concent 31.1 G/DL (32.0-36.0) Red Cell Distribution Width 23.5 % (11.6-14.8) Platelet Count 238 K/UL (150-450) Mean Platelet Volume 6.8 FL (6.5-10.1) Neutrophils (%) (Auto) 66.2 % (45.0-75.0) Lymphocytes (%) (Auto) 23.3 % (20.0-45.0) Monocytes (%) (Auto) 5.4 % (1.0-10.0) Eosinophils (%) (Auto) 3.9 % (0.0-3.0) Basophils (%) (Auto) 1.3 % (0.0-2.0) Prothrombin Time 9.8 SEC (9.30-11.50) Prothromb Time International Ratio 0.9 (0.9-1.1) Activated Partial Thromboplast Time 26 SEC (23-33) Urine Color Red Urine Appearance Turbid Urine pH 7 (4.5-8.0) Urine Specific [place] 1.010 (1.005-1.035) Urine Protein 4+ (NEGATIVE) Urine Glucose (UA) Negative (NEGATIVE) Urine Ketones 1+ (NEGATIVE) Urine Occult Blood 5+ (NEGATIVE) Urine Nitrite Negative (NEGATIVE) Urine Bilirubin Negative (NEGATIVE) Urine Urobilinogen 1 MG/DL (0.0-1.0) Urine Leukocyte Esterase 3+ (NEGATIVE) Urine RBC Tntc /HPF (0 - 2) Urine WBC 5-10 /HPF (0 - 2) Urine Squamous Epithelial Cells Few /LPF (NONE/OCC) Urine Bacteria Few /HPF (NONE) Urine HCG, Qualitative Negative Sodium Level 143 MMOL/L (136-145) Potassium Level 4.2 MMOL/L (3.5-5.1) Chloride Level 108 MMOL/L (98-107) Carbon Dioxide Level 26 MMOL/L (21-32) Anion Gap 9 mmol/L (5-15) Blood Urea Nitrogen 18 mg/dL (7-18) Creatinine 0.7 MG/DL (0.55-1.30) Estimat Glomerular Filtration Rate > 60 mL/min (>60) Glucose Level 62 MG/DL (74-106) Calcium Level 8.5 MG/DL (8.5-10.1) Total Bilirubin 0.2 MG/DL (0.2-1.0) Aspartate Amino Transf (AST/SGOT) 21 U/L (15-37) Alanine Aminotransferase (ALT/SGPT) 22 U/L (12-78) Alkaline Phosphatase 84 U/L (46-116) Total Protein 6.8 G/DL (6.4-8.2) Albumin 3.1 G/DL (3.4-5.0) Globulin 3.7 g/dL Albumin/Globulin Ratio 0.8 (1.0-2.7) Human Chorionic Gonadotropin, Quant 4 mIU/mL (1-6) Last Vital Signs Date Time Temp Pulse Resp B/P (MAP) Pulse Ox O2 Delivery O2 Flow Rate FiO2 07/21/17 08:57 97.9 74 19 92/58 100 Status: improved Disposition: HOME, SELF-CARE Condition: Stable Referrals: NON PHYSICIAN (PCP) SEPIDEH JUAREZ M.D. Jul 21, 2017 09:48
[2017-07-21 10:09] LABS: BASOPHILS % (AUTO) 1.3 % (0.0-2.0); EOSINOPHILS % (AUTO) 3.9 % (0.0-3.0); LYMPHOCYTES % (AUTO) 23.3 % (20.0-45.0); MEAN CORPUSCULAR HEMOGLOBIN 25.2 PG (27.0-31.0); MEAN CORPUSCULAR HGB CONC 31.1 G/DL (32.0-36.0); MEAN CORPUSCULAR VOLUME 81 FL (80-99); MEAN PLATELET VOLUME 6.8 FL (6.5-10.1); MONOCYTES % (AUTO) 5.4 % (1.0-10.0); NEUTROPHILS % (AUTO) 66.2 % (45.0-75.0); PLATELET COUNT 238 K/UL (150-450); RED BLOOD COUNT 3.22 M/UL (4.20-5.40); RED CELL DISTRIBUTION WIDTH 23.5 % (11.6-14.8); WHITE BLOOD COUNT 3.8 K/UL (4.8-10.8)
[2017-07-21 10:15] LABS: INR 0.9 (0.9-1.1); PROTHROMBIN TIME 9.8 SEC (9.30-11.50)
[2017-07-21 10:17] LABS: ALANINE AMINOTRANSFERASE 22 U/L (12-78); ALBUMIN/GLOBULIN RATIO 0.8 (1.0-2.7); ANION GAP 9 mmol/L (5-15); ASPARTATE AMINO TRANSFERASE 21 U/L (15-37); CALCIUM 8.5 MG/DL (8.5-10.1); CARBON DIOXIDE 26 MMOL/L (21-32); CHLORIDE 108 MMOL/L (98-107); CREATININE 0.7 MG/DL (0.55-1.30); GLOMERULAR FILTRATION RATE > 60 mL/min (>60); POTASSIUM 4.2 MMOL/L (3.5-5.1); SODIUM 143 MMOL/L (136-145); TOTAL PROTEIN 6.8 G/DL (6.4-8.2)
[2017-07-21 10:25] LABS: APPEARANCE,URINE TURBID; KETONES,URINE 1+ (NEGATIVE); LEUKOCYTE ESTERASE ,URINE 3+ (NEGATIVE); NITRITE,URINE NEGATIVE (NEGATIVE); PH,URINE 7 (4.5-8.0); PROTEIN,URINE 4+ (NEGATIVE); UROBILINOGEN,URINE 1 MG/DL (0.0-1.0)
[2017-07-21 10:36] LABS: BACTERIA,URINE FEW /HPF; RBC,URINE TNTC /HPF (0 - 2); SQUAMOUS EPITHELIAL CELL,UR FEW /LPF (NONE/OCC)
[2017-07-21 11:40] VITALS: BP 117/83
== END 2017-07-21 11:40 | disposition home or self-care (01) ==
LOC: EMR 09:14
DX: N93.8 Other specified abnormal uterine and vaginal bleeding (principal); N93.9 Abnormal uterine and vaginal bleeding, unspecified; E11.9 Type 2 diabetes mellitus without complications; I10 Essential (primary) hypertension; R56.9 Unspecified convulsions; R51 Headache
CPT/HCPCS: 36415; 80053; 81003; 81025; 84702; 85025; 85610; 85730; 86850; 86900; 86901; 96360; 99284

== ENCOUNTER 2017-10-10 09:14 | Inpatient (IN) | payer MEDICAID ==
[2017-10-10] VITALS (8 sets, daily range): BP systolic 129–151; BP diastolic 71–98
[~2017-10-10] VITALS: Ht 152.4 cm; Wt 54.4 kg
[2017-10-10] MEDS ORDERED: Sodium Chloride 500ML 500 ML IV ONE (09:39)
--- NOTE | 2017-10-10 09:39 | Emergency Room Report ---
History of Present Illness General Chief Complaint: Abdominal Pain Source: Patient, Medical Record Present Illness HPI This is a 42-year-old female who presented after increased epigastric pain for the past 2 days. Patient reports having increased cough and subjective headache. She reports having sharp pain to the epigastric area which did not radiate. Patient had prior history of anemia as well as diabetes type 2 . she has reportedly been compliant with her insulin. The patient denied black or bloody stool or hematemesis. Allergies: Coded Allergies: No Known Allergies (Verified , 09/02/07) Patient History Past Medical History: see triage record, DM Reviewed Nursing Documentation: PMH: Agreed, PSxH: Agreed Nursing Documentation-PMH Past Medical History: No History, Except For Hx Cardiac Problems: No - Hypothyroidism, Anemia, Uterine fibroid Hx Hypertension: Yes Hx Pacemaker: No Hx Asthma: No Hx COPD: No Hx Diabetes: Yes Hx Cancer: No Hx Gastrointestinal Problems: No Hx Dialysis: No History Of Psychiatric Problem: No Hx Neurological Problems: No Hx Cerebrovascular Accident: No Hx Transient Ischemic Attacks: No Hx Dementia: No Hx Alzheimer's Disease: No Hx Parkinson's Disease: No Hx Meningitis: No Hx Encephalitis: No Hx Seizures: Yes Hx Epilepsy: No Hx Multiple Sclerosis: No Hx Cerebral Palsy: No Hx Amyotrophic Lat Sclerosis: No Hx Guillian-[place] Syndrome: No Hx Paralysis: No Hx Peripheral Neuropathy: No Hx Spinal Cord Injury: No Hx Head Trauma: Yes - Fell in the shower and hit her head one day prior to admission Hx Traumatic Brain Injury: No Hx Memory Loss: No Hx Concentration Difficulty: Yes Hx Speech Problem: No Hx Tremors: No Hx Vertigo: No Hx Dizziness: Yes Hx Syncope: No Hx Headaches: Yes Hx Aphasia: No Hx Dysphasia: No Hx Numbness: No Hx Weakness: No Hx Fatigue: Yes Hx Neurologic Surgery: No Hx Brain Shunt: No Review of Systems All Other Systems: negative except mentioned in HPI Physical Exam Vital Signs Date Time Temp Pulse Resp B/P (MAP) Pulse Ox O2 Delivery O2 Flow Rate FiO2 10/10/17 09:27 98.1 80 16 130/80 100 Room Air Sp02 EP Interpretation: reviewed, normal General Appearance: normal inspection, well appearing, no apparent distress, alert, GCS 15 Head: atraumatic ENT: normal ENT inspection, hearing grossly normal, normal voice Neck: normal inspection, full range of motion, supple, no bony tend Respiratory: normal inspection, lungs clear, normal breath sounds, no respiratory distress, no retraction, no wheezing Cardiovascular #1: regular rate, rhythm, no edema Gastrointestinal: normal inspection, normal bowel sounds, non tender, soft, no guarding, no hernia Genitourinary: no CVA tenderness Musculoskeletal: normal inspection, back normal, normal range of motion Neurologic: normal inspection, alert, oriented x3, responsive, video engineer III-XII nml as tested, speech normal Psychiatric: normal inspection, judgement/insight normal, mood/affect normal Skin: normal inspection, normal color, no rash Medical Decision Making Diagnostic Impression: Primary Impression: Anemia Additional Impressions: Sepsis UTI (lower urinary tract infection) Bilateral pleural effusion ER Course Patient presented for generalized weakness. Differential diagnosis included was not limited to anemia, urinary tract infection, electrolyte abnormality, hypothyroidism, myocardial infarction, myasthenia gravis, dehydration, among others. Because of complexity of patient's case laboratory testing and imaging studies were ordered.The patient was noted to have bilateral pleural effusions on abdominal ultrasound with no evidence of cirrhosis. CT of the abdomen pelvis showed bilateral moderate-sized pleural effusions with small amount of pericholecystic fluid Dr. Frederic Avila was contacted for inpatient management due to prior admission Dr. Thomas was contacted for general surgical consult. Labs Test 10/10/17 09:40 10/10/17 10:30 10/10/17 10:58 Urine Color Yellow Urine Appearance Slightly cloudy Urine pH 6 (4.5-8.0) Urine Specific [place] 1.015 (1.005-1.035) Urine Protein 2+ (NEGATIVE) Urine Glucose (UA) Negative (NEGATIVE) Urine Ketones 2+ (NEGATIVE) Urine Occult Blood 2+ (NEGATIVE) Urine Nitrite Negative (NEGATIVE) Urine Bilirubin Negative (NEGATIVE) Urine Urobilinogen 1 MG/DL (0.0-1.0) Urine Leukocyte Esterase 3+ (NEGATIVE) Urine RBC 2-4 /HPF (0 - 2) Urine WBC 20-30 /HPF (0 - 2) Urine Squamous Epithelial Cells Moderate /LPF (NONE/OCC) Urine Bacteria Few /HPF (NONE) Urine HCG, Qualitative Negative Prothrombin Time 10.1 SEC (9.30-11.50) Prothromb Time International Ratio 1.0 (0.9-1.1) Activated Partial Thromboplast Time 25 SEC (23-33) Sodium Level 139 MMOL/L (136-145) Potassium Level 4.1 MMOL/L (3.5-5.1) Chloride Level 105 MMOL/L (98-107) Carbon Dioxide Level 25 MMOL/L (21-32) Anion Gap 9 mmol/L (5-15) Blood Urea Nitrogen 6 mg/dL (7-18) Creatinine 0.5 MG/DL (0.55-1.30) Estimat Glomerular Filtration Rate > 60 mL/min (>60) Glucose Level 175 MG/DL (74-106) Calcium Level 7.8 MG/DL (8.5-10.1) Total Bilirubin 0.3 MG/DL (0.2-1.0) Aspartate Amino Transf (AST/SGOT) 16 U/L (15-37) Alanine Aminotransferase (ALT/SGPT) 19 U/L (12-78) Alkaline Phosphatase 129 U/L (46-116) Troponin I 0.037 ng/mL (0.000-0.056) Total Protein 6.5 G/DL (6.4-8.2) Albumin 2.6 G/DL (3.4-5.0) Globulin 3.9 g/dL Albumin/Globulin Ratio 0.7 (1.0-2.7) Lipase 57 U/L (73-393) White Blood Count 3.4 K/UL (4.8-10.8) Red Blood Count 2.44 M/UL (4.20-5.40) Hemoglobin 4.6 G/DL (12.0-16.0) Hematocrit 16.5 % (37.0-47.0) Mean Corpuscular Volume 68 FL (80-99) Mean Corpuscular Hemoglobin 18.8 PG (27.0-31.0) Mean Corpuscular Hemoglobin Concent 27.8 G/DL (32.0-36.0) Red Cell Distribution Width 20.2 % (11.6-14.8) Platelet Count 286 K/UL (150-450) Mean Platelet Volume 5.4 FL (6.5-10.1) Neutrophils (%) (Auto) % (45.0-75.0) Lymphocytes (%) (Auto) % (20.0-45.0) Monocytes (%) (Auto) % (1.0-10.0) Eosinophils (%) (Auto) % (0.0-3.0) Basophils (%) (Auto) % (0.0-2.0) Differential Total Cells Counted 100 Neutrophils % (Manual) 74 % (45-75) Lymphocytes % (Manual) 16 % (20-45) Monocytes % (Manual) 8 % (1-10) Eosinophils % (Manual) 1 % (0-3) Basophils % (Manual) 1 % (0-2) Band Neutrophils 0 % (0-8) Platelet Estimate Adequate Platelet Morphology Normal Hypochromasia 3+ Anisocytosis 2+ Microcytosis 2+ Last Vital Signs Date Time Temp Pulse Resp B/P (MAP) Pulse Ox O2 Delivery O2 Flow Rate FiO2 10/10/17 09:27 98.1 80 16 130/80 100 Room Air Status: unchanged Disposition: ADMITTED INPATIENT Condition: Jose Arroyo Oct 10, 2017 09:39
[2017-10-10 10:20] LABS: APPEARANCE,URINE SLIGHTLY CLOUDY; BILIRUBIN, URINE NEGATIVE (NEGATIVE); GLUCOSE, URINE (UA) NEGATIVE (NEGATIVE); KETONES,URINE 2+ (NEGATIVE); LEUKOCYTE ESTERASE ,URINE 3+ (NEGATIVE); NITRITE,URINE NEGATIVE (NEGATIVE); PH,URINE 6 (4.5-8.0); PROTEIN,URINE 2+ (NEGATIVE); UROBILINOGEN,URINE 1 MG/DL (0.0-1.0)
[2017-10-10 10:28] LABS: COLOR,URINE YELLOW
[2017-10-10] MEDS ORDERED: cefTRIAXone 1 GM in NS 55 ML IVPB ONE (10:45)
[2017-10-10 11:13] LABS: HEMATOCRIT 16.5 % (37.0-47.0); MEAN CORPUSCULAR VOLUME 68 FL (80-99); PLATELET COUNT 286 K/UL (150-450); RED BLOOD COUNT 2.44 M/UL (4.20-5.40); RED CELL DISTRIBUTION WIDTH 20.2 % (11.6-14.8); WHITE BLOOD COUNT 3.4 K/UL (4.8-10.8)
[2017-10-10 11:14] LABS: HEMOGLOBIN 4.6 G/DL (12.0-16.0)
[2017-10-10 12:16] LABS: ALANINE AMINOTRANSFERASE 19 U/L (12-78); ALBUMIN 2.6 G/DL (3.4-5.0); ALBUMIN/GLOBULIN RATIO 0.7 (1.0-2.7); ALKALINE PHOSPHATASE 129 U/L (46-116); ANION GAP 9 mmol/L (5-15); ASPARTATE AMINO TRANSFERASE 16 U/L (15-37); BILIRUBIN,TOTAL 0.3 MG/DL (0.2-1.0); BLOOD UREA NITROGEN 6 mg/dL (7-18); CALCIUM 7.8 MG/DL (8.5-10.1); CARBON DIOXIDE 25 MMOL/L (21-32); CHLORIDE 105 MMOL/L (98-107); CREATININE 0.5 MG/DL (0.55-1.30); POTASSIUM 4.1 MMOL/L (3.5-5.1); SODIUM 139 MMOL/L (136-145)
[2017-10-10] MEDS ORDERED: Mylanta II UD 30ml ORAL PRN (13:15)
[2017-10-10] MEDS ORDERED: LORazepam Inj 2mg/ml 1ml IV PRN (13:15)
[2017-10-10] MEDS ORDERED: Morphine Sulfate 2mg/ml Inj IVP PRN (13:15)
--- NOTE | 2017-10-10 13:59 | Diagnostic Imaging Report ---
Indication: Abdominal pain Technique: Multiplanar grayscale and color Doppler imaging of the abdomen. Comparison: 06/08/2013 Findings: Imaged portions of the pancreatic head unremarkable in appearance. The body and tail are not well seen. There is diffuse increased hepatic echogenicity. Right lobe of the liver measures 14 cm in length. Liver contour is smooth. No focal liver mass appreciated sonographically. Portal vein is patent with normal direction of flow. Cholelithiasis is noted. No gallbladder wall thickening or pericholecystic fluid. No intrahepatic or extrahepatic biliary ductal dilatation. Common bile duct measures 3.3 mm. Kidneys are symmetric in size and demonstrate normal parenchymal thickness and echogenicity. No sonographically appreciable renal stones. No hydronephrosis bilaterally. Spleen is normal in size and appearance. Bilateral pleural effusions are noted. Impression: Cholelithiasis without evidence to suggest an acute cholecystitis. Diffuse increased hepatic echogenicity most commonly reflective of hepatic steatosis. Additional hepatocellular disease should be excluded clinically. Bilateral pleural effusions.
--- NOTE | 2017-10-10 16:36 | Consultation ---
History of Present Illness General Date patient seen: Oct 10, 2017 Chief Complaint: Abdominal Pain Reason for Consultation: abdominal pain Present Illness HPI 42F with pmhx of DM, HTN, anemia presented with epigastric pain x 5 days with associated nausea and emesis. States pain cramping epigastric pain without radiation. pain 5/10. constant. non bloody emesis. normal bm's. has had cough for 8 days and flu like symptoms. presented to ED and found to have severe anemia Hb 4's. Ultrasound with pericholecystic fluid but no acute teresita , bilateral pleural effusions. CT scan performed and demonstrated large bilateral pleural effusions. no significant intraabdominal pathology. no recent trauma. records reviewed and noted that patient has had anemia on prior visits last year but otherwise no anemia since records dating back to 2006. she states that she has had colonoscopy / endoscopy within the last 1-2 years and no significant findings. currently receiving PRBC states she feels mildly better. surgery called to evaluate for abdominal pain. Allergies: Coded Allergies: No Known Allergies (Verified , 09/02/07) Medication History Scheduled Atorvastatin Calcium* (Lipitor*), 10 MG ORAL QHS, (Reported) Ferrous Sulfate* (Ferrous Sulfate*), 325 MG ORAL TWICE A DAY Insulin Glargine (Lantus), 0 SUBQ BEDTIME, (Reported) Levothyroxine Sodium* (Levothyroxine Sodium*), 125 MCG ORAL DAILY@0630 Vits W-Ca,Fe,Fa(<1MG) ( Formula), 1 TAB ORAL DAILY Trimethoprim/Sulfamethoxazole (Bactrim 400-80 mg Tablet), 1 TAB ORAL TWICE A DAY Scheduled PRN Ibuprofen* (Motrin*), 600 MG ORAL Q8H PRN for For Pain Miscellaneous Medications Insulin Aspart* (Novolog*), 0 SUBQ, (Reported) Patient History History Provided By: Patient, Medical Record Healthcare decision maker Resuscitation status Advanced Directive on File Past Medical/Surgical History Past Medical/Surgical History: (1) Dehydration (2) Hypothyroidism (3) Bilateral pleural effusion (4) Hypoglycemia (5) Fibroid (6) UTI (urinary tract infection) (7) [id number] (8) dysfunctional uterine bleeding (9) uncontrolled diabetes (10) dysfunctional uterine bleeding (11) Hyperglycemia (12) [id number] (13) DKA (14) uncontrolled diabetes (15) Anemia (16) DKA (17) dysfunctional uterine bleeding (18) Hypokalemia (19) Vaginal bleeding (20) anemia (21) Hyperglycemia (22) Fibroid (23) Hyperglycemia (24) Fibroid (25) Vaginal bleeding (26) Anemia (27) Hypomagnesemia (28) Hypoglycemia (29) T2DM (type 2 diabetes mellitus) (30) Seizure (31) Hypoglycemia (32) Hypoglycemia (33) Hypoglycemia (34) Hypoglycemia (35) Diabetes mellitus out of control (36) Hypotension (37) Hypotension (38) Malnutrition (39) Malnutrition (40) UTI (lower urinary tract infection) (41) Abnormal liver enzymes (42) Abnormal liver enzymes (43) encephalopathy hypoglycemic (44) encephalopathy hypoglycemic (45) Sepsis (46) Sepsis (47) DM (diabetes mellitus) (48) Abdominal pain (49) Abdominal pain (50) Headache (51) Diabetes mellitus out of control (52) Symptomatic anemia (53) DUB (dysfunctional uterine bleeding) (54) UTI (lower urinary tract infection) (55) DM (diabetes mellitus) (56) Dysfunctional uterine bleeding Review of Systems Constitutional: Reports: weakness, Denies: no symptoms, see HPI, chills, sweats , malaise, other Eye: Denies: no symptoms, see HPI, eye pain, blurred vision, tearing, double vision, nose pain, nose congestion, acuity changes, discharge, other ENT: Denies: no symptoms, see HPI, ear pain, ear discharge, nose pain, nose congestion, throat pain, throat swelling, mouth pain, hearing loss, nasal discharge, other Respiratory: Reports: shortness of breath Cardiovascular: Denies: no symptoms, see HPI, chest pain, edema, palpitations, syncope, PND, other Gastrointestinal: Reports: abdominal pain, nausea, vomiting Genitourinary: Denies: no symptoms, see HPI, discharge, dysuria, frequency, hematuria, pain, retention, incontinence, urgency, vag bleed/dc, other Musculoskeletal: Denies: no symptoms, see HPI, back pain, gout, joint pain, joint swelling, muscle pain, muscle stiffness, other Skin: Denies: no symptoms, see HPI, rash, change in color, change in hair/nails , dryness, lesions, other Psychiatric: Denies: no symptoms, see HPI, prior hx, anxiety, depressed feelings, emotional problems, SI, HI, hallucinations, other Neurological: Reports: headache Endocrine: Denies: no symptoms, see HPI, excessive sweating, flushing, intolerance to temperature, increased thirst, increased urine, unexplained weight loss, other Hematologic/Lymphatic: Denies: no symptoms, see HPI, anemia, blood clots, easy bleeding, easy bruising, swollen glands, diathesis, other Physical Exam General Appearance: WD/WN, no apparent distress, alert Lines, tubes and drains: peripheral HEENT: normocephalic, atraumatic, mucous membranes moist, PERRL Neck: normal alignment, supple, normal inspection Respiratory/Chest: no respiratory distress, no accessory muscle use, decreased breath sounds Cardiovascular/Chest: normal peripheral pulses Abdomen: normal bowel sounds, non tender, soft, no organomegaly, no mass, other - mild epigastric discomfort on deep palpation. Extremities: normal range of motion, non-tender Skin Exam: normal pigmentation, warm/dry Neurologic: alert, oriented x 3, responsive Last 24 Hour Vital Signs Date Time Temp Pulse Resp B/P (MAP) Pulse Ox O2 Delivery O2 Flow Rate FiO2 10/10/17 14:45 98.4 81 14 148/84 95 Nasal Cannula 4.0 10/10/17 13:10 98.3 79 16 151/82 95 Nasal Cannula 3.0 10/10/17 12:24 98.1 79 18 144/80 94 Nasal Cannula 3.0 10/10/17 12:05 98.1 81 15 129/72 100 Nasal Cannula 3.0 10/10/17 11:11 98.1 80 12 129/74 100 Nasal Cannula 3.0 10/10/17 09:27 98.1 80 16 130/80 100 Room Air 10/10/17 09:25 98.0 81 17 131/71 100 Room Air Laboratory Tests Test 10/10/17 09:40 10/10/17 10:30 10/10/17 10:58 Urine Color Yellow Urine Appearance Slightly cloudy Urine pH 6 (4.5-8.0) Urine Specific [place] 1.015 (1.005-1.035) Urine Protein 2+ (NEGATIVE) H Urine Glucose (UA) Negative (NEGATIVE) Urine Ketones 2+ (NEGATIVE) H Urine Occult Blood 2+ (NEGATIVE) H Urine Nitrite Negative (NEGATIVE) Urine Bilirubin Negative (NEGATIVE) Urine Urobilinogen 1 MG/DL (0.0-1.0) H Urine Leukocyte Esterase 3+ (NEGATIVE) H Urine RBC 2-4 /HPF (0 - 2) H Urine WBC 20-30 /HPF (0 - 2) H Urine Squamous Epithelial Cells Moderate /LPF (NONE/OCC) H Urine Bacteria Few /HPF (NONE) Urine HCG, Qualitative Negative Prothrombin Time 10.1 SEC (9.30-11.50) Prothromb Time International Ratio 1.0 (0.9-1.1) Activated Partial Thromboplast Time 25 SEC (23-33) Sodium Level 139 MMOL/L (136-145) Potassium Level 4.1 MMOL/L (3.5-5.1) Chloride Level 105 MMOL/L (98-107) Carbon Dioxide Level 25 MMOL/L (21-32) Anion Gap 9 mmol/L (5-15) Blood Urea Nitrogen 6 mg/dL (7-18) L Creatinine 0.5 MG/DL (0.55-1.30) L Estimat Glomerular Filtration Rate > 60 mL/min (>60) Glucose Level 175 MG/DL (74-106) H Calcium Level 7.8 MG/DL (8.5-10.1) L Total Bilirubin 0.3 MG/DL (0.2-1.0) Aspartate Amino Transf (AST/SGOT) 16 U/L (15-37) Alanine Aminotransferase (ALT/SGPT) 19 U/L (12-78) Alkaline Phosphatase 129 U/L (46-116) H Troponin I 0.037 ng/mL (0.000-0.056) Total Protein 6.5 G/DL (6.4-8.2) Albumin 2.6 G/DL (3.4-5.0) L Globulin 3.9 g/dL Albumin/Globulin Ratio 0.7 (1.0-2.7) L Lipase 57 U/L (73-393) L White Blood Count 3.4 K/UL (4.8-10.8) L Red Blood Count 2.44 M/UL (4.20-5.40) L Hemoglobin 4.6 G/DL (12.0-16.0) *L Hematocrit 16.5 % (37.0-47.0) L Mean Corpuscular Volume 68 FL (80-99) L Mean Corpuscular Hemoglobin 18.8 PG (27.0-31.0) L Mean Corpuscular Hemoglobin Concent 27.8 G/DL (32.0-36.0) L Red Cell Distribution Width 20.2 % (11.6-14.8) H Platelet Count 286 K/UL (150-450) Mean Platelet Volume 5.4 FL (6.5-10.1) L Neutrophils (%) (Auto) % (45.0-75.0) Lymphocytes (%) (Auto) % (20.0-45.0) Monocytes (%) (Auto) % (1.0-10.0) Eosinophils (%) (Auto) % (0.0-3.0) Basophils (%) (Auto) % (0.0-2.0) Differential Total Cells Counted 100 Neutrophils % (Manual) 74 % (45-75) Lymphocytes % (Manual) 16 % (20-45) L Monocytes % (Manual) 8 % (1-10) Eosinophils % (Manual) 1 % (0-3) Basophils % (Manual) 1 % (0-2) Band Neutrophils 0 % (0-8) Platelet Estimate Adequate Platelet Morphology Normal Hypochromasia 3+ Anisocytosis 2+ Microcytosis 2+ Height (Feet): 5 Weight (Pounds): 120 Medications Current Medications Medications (Trade) Dose Ordered Sig/Alycia Route PRN Reason Start Time Stop Time Status Last Admin Dose Admin Acetaminophen (Tylenol) 650 mg Q4H PRN ORAL T>100.5 10/10/17 13:15 11/09/17 13:14 Al Hydroxide/Mg Hydroxide (Mylanta II) 30 ml Q6H PRN ORAL dyspepsia 10/10/17 13:15 11/09/17 13:14 Dextrose (Dextrose 50%) STAT PRN IV Hypoglycemia 10/10/17 13:30 11/09/17 13:29 Insulin Aspart (NovoLOG) BEFORE MEALS AND HS SUBQ 10/10/17 16:30 11/09/17 16:29 Lorazepam (Ativan 2mg/ml 1ml) 0.5 mg Q4H PRN IV For Anxiety 10/10/17 13:15 10/17/17 13:14 Morphine Sulfate (Morphine Sulfate) 1 mg Q4H PRN IVP PAIN 4-10 10/10/17 13:15 10/17/17 13:14 Ondansetron HCl (Zofran) 4 mg Q6H PRN IVP Nausea & Vomiting 10/10/17 13:15 11/09/17 13:14 Polyethylene Glycol (Miralax) 17 gm HSPRN PRN ORAL Constipation 10/10/17 21:00 11/09/17 20:59 Zolpidem Tartrate (Ambien) 5 mg HSPRN PRN ORAL Insomnia 10/10/17 21:00 10/17/17 20:59 Assessment/Plan Problem List: (1) Abdominal pain Assessment & Plan: 42F with epigastric abdominal pain, nausea, non bloody emesis, severe anemia, sob, cough, flu like symptoms, bilateral large pleural effusions. labs reviewed. no significant intraabdominal pathology. no acute surgical intervention necessary. etiology of anemia needs further work up and patient requires resuscitation. -IR drainage of bilateral large pleural effusions -npo -iv fluids -iv abx -trend labs -transfuse prbc prn -GI, oncology consult -will follow with recs thank you for this consultation. ICD Codes: R10.9 - Abdominal pain SNOMED: 96741824 Qualifiers: Qualified Codes: R10.13 - Epigastric pain Status: stable Miko Thomas Oct 10, 2017 16:36
[2017-10-10] MEDS: NovoLOG Insulin Flexpen SUBQ SCH ×2 (17:58→20:41)
[2017-10-10] MEDS: Promethazine/Codeine 5ml UD ORAL SCH (20:39)
[2017-10-10] MEDS ORDERED: Zolpidem 5mg tab ORAL PRN (21:00)
[2017-10-10] MEDS ORDERED: Miralax 17gm pkt ORAL PRN (21:00)
[2017-10-11] MEDS: Promethazine/Codeine 5ml UD ORAL SCH ×3 (01:37→13:49)
[2017-10-11] MEDS: NovoLOG Insulin Flexpen SUBQ SCH ×4 (06:25→20:57)
[2017-10-11 08:00] VITALS: BP 125/75
[2017-10-11 08:02] LABS: BASOPHILS % (AUTO) 0.9 % (0.0-2.0); EOSINOPHILS % (AUTO) 1.9 % (0.0-3.0); HEMOGLOBIN 9.1 G/DL (12.0-16.0); LYMPHOCYTES % (AUTO) 18.5 % (20.0-45.0); MEAN CORPUSCULAR VOLUME 74 FL (80-99); NEUTROPHILS % (AUTO) 72.8 % (45.0-75.0); PLATELET COUNT 283 K/UL (150-450); RED BLOOD COUNT 3.92 M/UL (4.20-5.40); RED CELL DISTRIBUTION WIDTH 22.4 % (11.6-14.8); WHITE BLOOD COUNT 4.7 K/UL (4.8-10.8)
[2017-10-11 08:19] LABS: ALANINE AMINOTRANSFERASE 15 U/L (12-78); ALBUMIN 2.4 G/DL (3.4-5.0); ALBUMIN/GLOBULIN RATIO 0.6 (1.0-2.7); ALKALINE PHOSPHATASE 127 U/L (46-116); ANION GAP 8 mmol/L (5-15); ASPARTATE AMINO TRANSFERASE 17 U/L (15-37); BILIRUBIN,TOTAL 0.5 MG/DL (0.2-1.0); BLOOD UREA NITROGEN 5 mg/dL (7-18); CALCIUM 7.9 MG/DL (8.5-10.1); CARBON DIOXIDE 27 MMOL/L (21-32); CHLORIDE 105 MMOL/L (98-107); CHOLESTEROL 97 MG/DL (< 200); CREATININE 0.5 MG/DL (0.55-1.30); HDL CHOLESTEROL 42 MG/DL (40-60); POTASSIUM 3.7 MMOL/L (3.5-5.1); SODIUM 140 MMOL/L (136-145); TRIGLYCERIDES 65 MG/DL (30-150)
--- NOTE | 2017-10-11 09:08 | Diagnostic Imaging Report ---
Indication: Dyspnea Technique: XRAY Chest 1v Comparison: 11/28/2014 Findings: Heart size and mediastinal contours are within normal limits. There small bilateral pleural effusions with adjacent bibasilar atelectasis/consolidation. There is mild interstitial opacification/edema and hazy perihilar opacities. There is no pneumothorax. No acute osseous abnormality seen. Impression: Interstitial opacities/edema with hazy perihilar opacities, small bilateral pleural effusions and bibasilar atelectasis/consolidation.
--- NOTE | 2017-10-11 10:08 | General Surgery Progress Note ---
General Surgery-Progress Note Subjective Symptoms: improved Additional Comments feels better after transfusion. looks better today. no complaints. still has cough. mild sob Objective Last 24 Hour Vital Signs Date Time Temp Pulse Resp B/P (MAP) Pulse Ox O2 Delivery O2 Flow Rate FiO2 10/11/17 08:00 97.7 75 19 125/75 95 Nasal Cannula 4.0 10/11/17 04:00 67 10/11/17 00:00 75 10/10/17 20:00 75 10/10/17 19:30 94 Nasal Cannula 2.0 28 10/10/17 17:00 98.4 81 18 144/98 95 Nasal Cannula 4.0 10/10/17 16:40 98.3 81 13 146/82 94 Nasal Cannula 4.0 10/10/17 16:25 98.3 81 13 146/82 94 Nasal Cannula 4.0 10/10/17 16:00 80 10/10/17 14:45 98.4 81 14 148/84 95 Nasal Cannula 4.0 10/10/17 13:10 98.3 79 16 151/82 95 Nasal Cannula 3.0 10/10/17 12:24 98.1 79 18 144/80 94 Nasal Cannula 3.0 10/10/17 12:05 98.1 81 15 129/72 100 Nasal Cannula 3.0 10/10/17 11:11 98.1 80 12 129/74 100 Nasal Cannula 3.0 I&O Intake and Output 10/10/17 10/11/17 19:00 07:00 Intake Total 800 ml Balance 800 ml Intake Oral 0 ml IV Total 550 ml Blood Product 250 ml # Voids 1 2 # Bowel Movements 1 Cardiovascular: RSR Respiratory: decreased breath sounds Abdomen: soft, flat, non-tender, present bowel sounds Extremities: no tenderness Laboratory Tests Test 10/10/17 10:30 10/10/17 10:58 10/11/17 07:00 Prothrombin Time 10.1 SEC (9.30-11.50) Prothromb Time International Ratio 1.0 (0.9-1.1) Activated Partial Thromboplast Time 25 SEC (23-33) Sodium Level 139 MMOL/L (136-145) 140 MMOL/L (136-145) Potassium Level 4.1 MMOL/L (3.5-5.1) 3.7 MMOL/L (3.5-5.1) Chloride Level 105 MMOL/L (98-107) 105 MMOL/L (98-107) Carbon Dioxide Level 25 MMOL/L (21-32) 27 MMOL/L (21-32) Anion Gap 9 mmol/L (5-15) 8 mmol/L (5-15) Blood Urea Nitrogen 6 mg/dL (7-18) L 5 mg/dL (7-18) L Creatinine 0.5 MG/DL (0.55-1.30) L 0.5 MG/DL (0.55-1.30) L Estimat Glomerular Filtration Rate > 60 mL/min (>60) > 60 mL/min (>60) Glucose Level 175 MG/DL (74-106) H 58 MG/DL (74-106) #L Calcium Level 7.8 MG/DL (8.5-10.1) L 7.9 MG/DL (8.5-10.1) L Total Bilirubin 0.3 MG/DL (0.2-1.0) 0.5 MG/DL (0.2-1.0) Aspartate Amino Transf (AST/SGOT) 16 U/L (15-37) 17 U/L (15-37) Alanine Aminotransferase (ALT/SGPT) 19 U/L (12-78) 15 U/L (12-78) Alkaline Phosphatase 129 U/L (46-116) H 127 U/L (46-116) H Troponin I 0.037 ng/mL (0.000-0.056) Total Protein 6.5 G/DL (6.4-8.2) 6.5 G/DL (6.4-8.2) Albumin 2.6 G/DL (3.4-5.0) L 2.4 G/DL (3.4-5.0) L Globulin 3.9 g/dL 4.1 g/dL Albumin/Globulin Ratio 0.7 (1.0-2.7) L 0.6 (1.0-2.7) L Lipase 57 U/L (73-393) L White Blood Count 3.4 K/UL (4.8-10.8) L 4.7 K/UL (4.8-10.8) L Red Blood Count 2.44 M/UL (4.20-5.40) L 3.92 M/UL (4.20-5.40) L Hemoglobin 4.6 G/DL (12.0-16.0) *L 9.1 G/DL (12.0-16.0) #L Hematocrit 16.5 % (37.0-47.0) L 29.0 % (37.0-47.0) #L Mean Corpuscular Volume 68 FL (80-99) L 74 FL (80-99) #L Mean Corpuscular Hemoglobin 18.8 PG (27.0-31.0) L 23.2 PG (27.0-31.0) L Mean Corpuscular Hemoglobin Concent 27.8 G/DL (32.0-36.0) L 31.3 G/DL (32.0-36.0) L Red Cell Distribution Width 20.2 % (11.6-14.8) H 22.4 % (11.6-14.8) H Platelet Count 286 K/UL (150-450) 283 K/UL (150-450) Mean Platelet Volume 5.4 FL (6.5-10.1) L 5.8 FL (6.5-10.1) L Neutrophils (%) (Auto) % (45.0-75.0) 72.8 % (45.0-75.0) Lymphocytes (%) (Auto) % (20.0-45.0) 18.5 % (20.0-45.0) L Monocytes (%) (Auto) % (1.0-10.0) 6.0 % (1.0-10.0) Eosinophils (%) (Auto) % (0.0-3.0) 1.9 % (0.0-3.0) Basophils (%) (Auto) % (0.0-2.0) 0.9 % (0.0-2.0) Differential Total Cells Counted 100 Neutrophils % (Manual) 74 % (45-75) Lymphocytes % (Manual) 16 % (20-45) L Monocytes % (Manual) 8 % (1-10) Eosinophils % (Manual) 1 % (0-3) Basophils % (Manual) 1 % (0-2) Band Neutrophils 0 % (0-8) Platelet Estimate Adequate Platelet Morphology Normal Hypochromasia 3+ Anisocytosis 2+ Microcytosis 2+ Triglycerides Level 65 MG/DL (30-150) Cholesterol Level 97 MG/DL (< 200) LDL Cholesterol 54 mg/dL (<100) HDL Cholesterol 42 MG/DL (40-60) Cholesterol/HDL Ratio 2.3 (3.3-4.4) L Thyroid Stimulating Hormone (TSH) 24.306 uiU/mL (0.358-3.740) Plan Problems: (1) Abdominal pain Assessment & Plan: 42F with epigastric abdominal pain, nausea, non bloody emesis, severe anemia, sob, cough, flu like symptoms, bilateral large pleural effusions. labs reviewed. no significant intraabdominal pathology. no acute surgical intervention necessary. etiology of anemia needs further work up and patient requires resuscitation. -IR drainage of bilateral large pleural effusions -npo... can start diet after drainage procedure. -iv fluids -iv abx -trend labs -transfuse prbc prn -GI, oncology consult -will follow with recs thank you for this consultation. Miko Thomas Oct 11, 2017 10:08
--- NOTE | 2017-10-11 11:20 | History and Physical ---
History of Present Illness General Date patient seen: Oct 11, 2017 Reason for Hospitalization: Abdominal Pain Present Illness HPI 42-year-old female with prior history of anemia as well as diabetes type 2 who presented after increased epigastric pain for the past 2 days. Patient reports having increased cough and subjective headache. She reports having sharp pain to the epigastric area which did not radiate. The patient denied black or bloody stool or hematemesis. Her hemoglobin was 4 . she is admitted to telemetry for further management. Allergies: Coded Allergies: No Known Allergies (Verified , 09/02/07) Medication History Scheduled Atorvastatin Calcium* (Lipitor*), 10 MG ORAL QHS, (Reported) Ferrous Sulfate* (Ferrous Sulfate*), 325 MG ORAL TWICE A DAY Insulin Glargine (Lantus), 0 SUBQ BEDTIME, (Reported) Levothyroxine Sodium* (Levothyroxine Sodium*), 125 MCG ORAL DAILY@0630 Vits W-Ca,Fe,Fa(<1MG) ( Formula), 1 TAB ORAL DAILY Trimethoprim/Sulfamethoxazole (Bactrim 400-80 mg Tablet), 1 TAB ORAL TWICE A DAY Scheduled PRN Ibuprofen* (Motrin*), 600 MG ORAL Q8H PRN for For Pain Miscellaneous Medications Insulin Aspart* (Novolog*), 0 SUBQ, (Reported) Patient History Healthcare decision maker Resuscitation status Full Code Advanced Directive on File Past Medical/Surgical History Past Medical/Surgical History: (1) Dysfunctional uterine bleeding (2) DM (diabetes mellitus) (3) Anemia Review of Systems All Other Systems: negative except mentioned in HPI Physical Exam General Appearance: cachetic Lines, tubes and drains: peripheral HEENT: normocephalic, atraumatic Neck: non-tender, supple Respiratory/Chest: chest wall non-tender, lungs clear Cardiovascular/Chest: normal rate Abdomen: normal bowel sounds Genitourinary/Rectal: normal genital exam Extremities: normal range of motion Last 24 Hour Vital Signs Date Time Temp Pulse Resp B/P (MAP) Pulse Ox O2 Delivery O2 Flow Rate FiO2 10/11/17 08:00 97.7 75 19 125/75 95 Nasal Cannula 4.0 10/11/17 08:00 70 10/11/17 04:00 67 10/11/17 00:00 75 10/10/17 20:00 75 10/10/17 19:30 94 Nasal Cannula 2.0 28 10/10/17 17:00 98.4 81 18 144/98 95 Nasal Cannula 4.0 10/10/17 16:40 98.3 81 13 146/82 94 Nasal Cannula 4.0 10/10/17 16:25 98.3 81 13 146/82 94 Nasal Cannula 4.0 10/10/17 16:00 80 10/10/17 14:45 98.4 81 14 148/84 95 Nasal Cannula 4.0 10/10/17 13:10 98.3 79 16 151/82 95 Nasal Cannula 3.0 10/10/17 12:24 98.1 79 18 144/80 94 Nasal Cannula 3.0 10/10/17 12:05 98.1 81 15 129/72 100 Nasal Cannula 3.0 Intake and Output 10/10/17 10/11/17 19:00 07:00 Intake Total 800 ml Balance 800 ml Intake Oral 0 ml IV Total 550 ml Blood Product 250 ml # Voids 1 2 # Bowel Movements 1 Laboratory Tests Test 10/11/17 07:00 White Blood Count 4.7 K/UL (4.8-10.8) L Red Blood Count 3.92 M/UL (4.20-5.40) L Hemoglobin 9.1 G/DL (12.0-16.0) #L Hematocrit 29.0 % (37.0-47.0) #L Mean Corpuscular Volume 74 FL (80-99) #L Mean Corpuscular Hemoglobin 23.2 PG (27.0-31.0) L Mean Corpuscular Hemoglobin Concent 31.3 G/DL (32.0-36.0) L Red Cell Distribution Width 22.4 % (11.6-14.8) H Platelet Count 283 K/UL (150-450) Mean Platelet Volume 5.8 FL (6.5-10.1) L Neutrophils (%) (Auto) 72.8 % (45.0-75.0) Lymphocytes (%) (Auto) 18.5 % (20.0-45.0) L Monocytes (%) (Auto) 6.0 % (1.0-10.0) Eosinophils (%) (Auto) 1.9 % (0.0-3.0) Basophils (%) (Auto) 0.9 % (0.0-2.0) Sodium Level 140 MMOL/L (136-145) Potassium Level 3.7 MMOL/L (3.5-5.1) Chloride Level 105 MMOL/L (98-107) Carbon Dioxide Level 27 MMOL/L (21-32) Anion Gap 8 mmol/L (5-15) Blood Urea Nitrogen 5 mg/dL (7-18) L Creatinine 0.5 MG/DL (0.55-1.30) L Estimat Glomerular Filtration Rate > 60 mL/min (>60) Glucose Level 58 MG/DL (74-106) #L Calcium Level 7.9 MG/DL (8.5-10.1) L Total Bilirubin 0.5 MG/DL (0.2-1.0) Aspartate Amino Transf (AST/SGOT) 17 U/L (15-37) Alanine Aminotransferase (ALT/SGPT) 15 U/L (12-78) Alkaline Phosphatase 127 U/L (46-116) H Total Protein 6.5 G/DL (6.4-8.2) Albumin 2.4 G/DL (3.4-5.0) L Globulin 4.1 g/dL Albumin/Globulin Ratio 0.6 (1.0-2.7) L Triglycerides Level 65 MG/DL (30-150) Cholesterol Level 97 MG/DL (< 200) LDL Cholesterol 54 mg/dL (<100) HDL Cholesterol 42 MG/DL (40-60) Cholesterol/HDL Ratio 2.3 (3.3-4.4) L Thyroid Stimulating Hormone (TSH) 24.306 uiU/mL (0.358-3.740) Height (Feet): 5 Height (Inches): 0.00 Weight (Pounds): 120 Medications Current Medications Medications (Trade) Dose Ordered Sig/Alycia Route PRN Reason Start Time Stop Time Status Last Admin Dose Admin Acetaminophen (Tylenol) 650 mg Q4H PRN ORAL T>100.5 10/10/17 13:15 11/09/17 13:14 Al Hydroxide/Mg Hydroxide (Mylanta II) 30 ml Q6H PRN ORAL dyspepsia 10/10/17 13:15 11/09/17 13:14 Dextrose (Dextrose 50%) STAT PRN IV Hypoglycemia 10/10/17 13:30 11/09/17 13:29 Insulin Aspart (NovoLOG) BEFORE MEALS AND HS SUBQ 10/10/17 16:30 11/09/17 16:29 10/10/17 17:58 Lorazepam (Ativan 2mg/ml 1ml) 0.5 mg Q4H PRN IV For Anxiety 10/10/17 13:15 10/17/17 13:14 Morphine Sulfate (Morphine Sulfate) 1 mg Q4H PRN IVP PAIN 4-10 10/10/17 13:15 10/17/17 13:14 Ondansetron HCl (Zofran) 4 mg Q6H PRN IVP Nausea & Vomiting 10/10/17 13:15 11/09/17 13:14 Polyethylene Glycol (Miralax) 17 gm HSPRN PRN ORAL Constipation 10/10/17 21:00 11/09/17 20:59 Promethazine HCl/ Codeine (Phenergan with Codeine) 5 ml Q6H ORAL 10/10/17 20:00 11/09/17 19:59 10/11/17 08:04 Sodium Chloride 1,000 ml @ 75 mls/hr [id number] IV 10/10/17 17:30 11/09/17 17:29 10/11/17 06:26 Zolpidem Tartrate (Ambien) 5 mg HSPRN PRN ORAL Insomnia 10/10/17 21:00 10/17/17 20:59 Assessment/Plan Problem List: (1) Symptomatic anemia ICD Codes: D64.9 - Anemia, unspecified SNOMED: 466494421 (2) Dysfunctional uterine bleeding ICD Codes: N93.8 - Other specified abnormal uterine and vaginal bleeding SNOMED: 46075233 (3) DM (diabetes mellitus) ICD Codes: E11.9 - DM (diabetes mellitus) SNOMED: 50851288 (4) Pleural effusion ICD Codes: J90 - Pleural effusion, not elsewhere classified SNOMED: 77759270 Assessment/Plan PRBC prn check h/h check te, T4 endo evaluation med/surg BRENT GOLDSTEIN Oct 11, 2017 11:20
[2017-10-11 12:00] VITALS: BP 124/75
--- NOTE | 2017-10-11 15:27 | GI Initial Consult Note ---
History of Present Illness General Date patient seen: Oct 11, 2017 Time patient seen: 15:22 Reason for Hospitalization: Abdominal Pain Referring physician: MEHDI JAFFE Reason for Consultation: abdominal pain Present Illness HPI This is a 42-year-old female who presented after increased epigastric pain for the past 2 days. Patient reports having increased cough and subjective headache. She reports having sharp pain to the epigastric area which did not radiate. Patient had prior history of anemia as well as diabetes type 2 . she has reportedly been compliant with her insulin. The patient denied black or bloody stool or hematemesis. GI consulted for severe anemia requiring blood transfusion. HPI noted above. Pt seen on floor, awake A&Ox4 NAD with no active s/sx of N/V/D. C/o of generalized abdominal pain, soft, tender to touch all quadrants. Denies any diarrhea and constipation. Had episodes of emesis at home, none now, denies hematemesis / coffee grounds. Denies tobacco, ETOH, and drug use. Presents today with anemia of low Hgb 4.6. States she had colonoscopy 1-2 years ago but unknown results. Home Meds Active Scripts Trimethoprim/Sulfamethoxazole (Bactrim 400-80 mg Tablet) 1 Each Tablet, 1 TAB ORAL TWICE A DAY, #6 TAB Prov:Kyaw (Carmen Reaves NP 01/19/17 Levothyroxine Sodium* (LEVOTHYROXINE SODIUM*) 112 Mcg Tab, 125 MCG ORAL DAILY@ 0630 for 30 Days, TAB Prov:Carmen Card NP (Vanchtein) 01/19/17 Ferrous Sulfate* (FERROUS SULFATE*) 325 Mg Tablet, 325 MG ORAL TWICE A DAY, #60 TAB 0 Refills Prov:DESTINEY JALLOH M.D. 11/03/16 Ibuprofen* (MOTRIN*) 600 Mg Tablet, 600 MG ORAL Q8H Y for For Pain, #30 TAB 0 Refills Prov:LAURA CURRAN 10/12/16 Vits W-Ca,Fe,Fa(<1MG) ( FORMULA) 1 Each Tablet, 1 TAB ORAL DAILY, #30 TAB Prov:GARRETT H[employer]ED[employer] OF INFORMATION OFFICER 11/29/14 Reported Medications Insulin Glargine (LANTUS) 100 Unit/1 Ml Insuln.pen, 0 SUBQ BEDTIME, #1 EA 0 Refills 10/12/16 Atorvastatin Calcium* (LIPITOR*) 10 Mg Tablet, 10 MG ORAL QHS, TAB 02/04/15 Insulin Aspart* (NOVOLOG*) 100 Unit/1 Ml Insuln.pen, 0 SUBQ, #1 EA 0 Refills 11/29/14 Med list reviewed/reconciled: Yes Allergies: Coded Allergies: No Known Allergies (Verified , 09/02/07) Patient History History Provided By: Patient, Medical Record PMH Narrative Past Medical History: see triage record, DM Reviewed Nursing Documentation: PMH: Agreed, PSxH: Agreed Nursing Documentation-PMH Past Medical History: No History, Except For Hx Cardiac Problems: No - Hypothyroidism, Anemia, Uterine fibroid Hx Hypertension: Yes Hx Pacemaker: No Hx Asthma: No Hx COPD: No Hx Diabetes: Yes Hx Cancer: No Hx Gastrointestinal Problems: No Hx Dialysis: No History Of Psychiatric Problem: No Hx Neurological Problems: No Hx Cerebrovascular Accident: No Hx Transient Ischemic Attacks: No Hx Dementia: No Hx Alzheimer's Disease: No Hx Parkinson's Disease: No Hx Meningitis: No Hx Encephalitis: No Hx Seizures: Yes Hx Epilepsy: No Hx Multiple Sclerosis: No Hx Cerebral Palsy: No Hx Amyotrophic Lat Sclerosis: No Hx Guillian-Rutledge Syndrome: No Hx Paralysis: No Hx Peripheral Neuropathy: No Hx Spinal Cord Injury: No Hx Head Trauma: Yes - Fell in the shower and hit her head one day prior to admission Hx Traumatic Brain Injury: No Hx Memory Loss: No Hx Concentration Difficulty: Yes Hx Speech Problem: No Hx Tremors: No Hx Vertigo: No Hx Dizziness: Yes Hx Syncope: No Hx Headaches: Yes Hx Aphasia: No Hx Dysphasia: No Hx Numbness: No Hx Weakness: No Hx Fatigue: Yes Hx Neurologic Surgery: No Hx Brain Shunt: No Social History: Denies: smoking, alcohol use, drug use, other Review of Systems All Other Systems: negative except mentioned in HPI Physical Exam Vital Signs Date Time Temp Pulse Resp B/P (MAP) Pulse Ox O2 Delivery O2 Flow Rate FiO2 10/10/17 09:25 98.0 81 17 131/71 100 Room Air 10/10/17 11:11 3.0 10/10/17 19:30 28 Sp02 EP Interpretation: reviewed, normal Labs Laboratory Tests Test 10/11/17 07:00 White Blood Count 4.7 K/UL (4.8-10.8) L Red Blood Count 3.92 M/UL (4.20-5.40) L Hemoglobin 9.1 G/DL (12.0-16.0) #L Hematocrit 29.0 % (37.0-47.0) #L Mean Corpuscular Volume 74 FL (80-99) #L Mean Corpuscular Hemoglobin 23.2 PG (27.0-31.0) L Mean Corpuscular Hemoglobin Concent 31.3 G/DL (32.0-36.0) L Red Cell Distribution Width 22.4 % (11.6-14.8) H Platelet Count 283 K/UL (150-450) Mean Platelet Volume 5.8 FL (6.5-10.1) L Neutrophils (%) (Auto) 72.8 % (45.0-75.0) Lymphocytes (%) (Auto) 18.5 % (20.0-45.0) L Monocytes (%) (Auto) 6.0 % (1.0-10.0) Eosinophils (%) (Auto) 1.9 % (0.0-3.0) Basophils (%) (Auto) 0.9 % (0.0-2.0) Sodium Level 140 MMOL/L (136-145) Potassium Level 3.7 MMOL/L (3.5-5.1) Chloride Level 105 MMOL/L (98-107) Carbon Dioxide Level 27 MMOL/L (21-32) Anion Gap 8 mmol/L (5-15) Blood Urea Nitrogen 5 mg/dL (7-18) L Creatinine 0.5 MG/DL (0.55-1.30) L Estimat Glomerular Filtration Rate > 60 mL/min (>60) Glucose Level 58 MG/DL (74-106) #L Calcium Level 7.9 MG/DL (8.5-10.1) L Total Bilirubin 0.5 MG/DL (0.2-1.0) Aspartate Amino Transf (AST/SGOT) 17 U/L (15-37) Alanine Aminotransferase (ALT/SGPT) 15 U/L (12-78) Alkaline Phosphatase 127 U/L (46-116) H Total Protein 6.5 G/DL (6.4-8.2) Albumin 2.4 G/DL (3.4-5.0) L Globulin 4.1 g/dL Albumin/Globulin Ratio 0.6 (1.0-2.7) L Triglycerides Level 65 MG/DL (30-150) Cholesterol Level 97 MG/DL (< 200) LDL Cholesterol 54 mg/dL (<100) HDL Cholesterol 42 MG/DL (40-60) Cholesterol/HDL Ratio 2.3 (3.3-4.4) L Thyroid Stimulating Hormone (TSH) 24.306 uiU/mL (0.358-3.740) Free Thyroxine 0.82 NG/DL (0.76-1.46) Free Triiodothyronine 1.2 pg/mL (2.3-4.2) L General Appearance: well appearing, no apparent distress, alert Head: normocephalic EENT: PERRL/EOMI, normal ENT inspection Neck: supple Respiratory: normal breath sounds, no respiratory distress Cardiovascular: normal rate Gastrointestinal: normal inspection, non tender, soft, normal bowel sounds, non -distended Rectal: deferred Genitourinary: no CVA tenderness Musculoskeletal: normal inspection, back normal Neurologic: normal inspection, alert, oriented x3, responsive Psychiatric: normal inspection, judgement/insight normal, memory normal Skin: normal inspection, normal color, no rash, warm/dry, palpation normal, well hydrated Lymphatic: normal inspection, no adenopathy Current Medications Current Medications Medications (Trade) Dose Ordered Sig/Alycia Route PRN Reason Start Time Stop Time Status Last Admin Dose Admin Acetaminophen (Tylenol) 650 mg Q4H PRN ORAL T>100.5 10/10/17 13:15 11/09/17 13:14 Al Hydroxide/Mg Hydroxide (Mylanta II) 30 ml Q6H PRN ORAL dyspepsia 10/10/17 13:15 11/09/17 13:14 Bisacodyl (Dulcolax) 10 mg ONCE ONCE ORAL 10/11/17 16:00 10/11/17 16:01 Dextrose (Dextrose 50%) STAT PRN IV Hypoglycemia 10/10/17 13:30 11/09/17 13:29 Insulin Aspart (NovoLOG) BEFORE MEALS AND HS SUBQ 10/10/17 16:30 11/09/17 16:29 10/10/17 17:58 Lorazepam (Ativan 2mg/ml 1ml) 0.5 mg Q4H PRN IV For Anxiety 10/10/17 13:15 10/17/17 13:14 Morphine Sulfate (Morphine Sulfate) 1 mg Q4H PRN IVP PAIN 4-10 10/10/17 13:15 10/17/17 13:14 Ondansetron HCl (Zofran) 4 mg Q6H PRN IVP Nausea & Vomiting 10/10/17 13:15 11/09/17 13:14 Polyethylene Glycol (Miralax) 17 gm HSPRN PRN ORAL Constipation 10/10/17 21:00 11/09/17 20:59 Polyethylene Glycol/ Electrolytes (Nulytely) 4,000 ml ONCE ONCE ORAL 10/11/17 16:00 10/11/17 16:01 Promethazine HCl/ Codeine (Phenergan with Codeine) 5 ml Q6H ORAL 10/10/17 20:00 11/09/17 19:59 10/11/17 13:49 Sodium Chloride 1,000 ml @ 75 mls/hr [id number] IV 10/10/17 17:30 11/09/17 17:29 10/11/17 13:49 Sodium Phosphate (Fleet's Sodium Phosl Enema) 133 ml ONCE ONCE RECTAL 10/11/17 23:00 10/11/17 23:01 Zolpidem Tartrate (Ambien) 5 mg HSPRN PRN ORAL Insomnia 10/10/17 21:00 10/17/17 20:59 GI: Plan Problems: (1) Pleural effusion (2) Anemia (3) Symptomatic anemia (4) Abdominal pain (5) Dehydration Plan Pt scheduled for - IR drainage of bilateral large pleural effusions. will consider EGD/colonoscopy pending anemia work up OB stool r/o GI bleed monitor H&H, prn transfusions bowel regime ppi ok for diet after IR drainage. fu labs Discussed with Dr. Correia. Thank you for this patient referral, we will follow. Bhavna Jalloh N.P. Oct 11, 2017 15:27
--- NOTE | 2017-10-11 15:46 | Pre-Procedure Note/Attestation ---
Pre-Procedure Note/Attestation Complete Prior to Procedure Planned Procedure: left Procedure Narrative: US guided thoracentesis Indications for Procedure Pre-Operative Diagnosis: Pleural effusions Attestation I attest that I discussed the nature of the procedure; its benefits; risks and complications; and alternatives (and the risks and benefits of such alternatives ), prior to the procedure, with the patient (or the patient's legal student services representative). I attest that, if there was a reasonable possibility of needing a blood transfusion, the patient (or the patient's legal student services representative) was given the [facility] standardized written summary, pursuant to the Gabe Dhruv Blood Safety Act ([place] Health and Safety Code # 1645, as amended). I attest that I re-evaluated the patient just prior to the surgery and that there has been no change in the patient's H&P, except as documented below: Tyrone Aranda M.D. Oct 11, 2017 15:46
[2017-10-11] MEDS ORDERED: Nulytely 4L ORAL ONE (16:00)
[2017-10-11] MEDS ORDERED: Bisacodyl EC 5mg tab ORAL ONE (16:00)
--- NOTE | 2017-10-11 16:24 | Diagnostic Imaging Report ---
Indications: Pleural effusion Technique: Ultrasound used to localize optimal puncture site. Sterile prepping and draping left chest. Local anesthesia with 1% lidocaine. Under real-time ultrasound guidance, puncture pleural space using thoracentesis needle. Stylet removed. Catheter placed to vacuum bottle suction. Total 900 milliliters of thin yellow fluid aspirated. Patient tolerated procedure well, without immediate complication. Findings: Followup sonography demonstrates near complete resolution of pleural effusion. Impression: Successful ultrasound-guided thoracentesis, yielding 900 milliliters of thin yellow fluid. Specimen sent for diagnostic studies.
[2017-10-11 17:00] VITALS: BP 122/72
--- NOTE | 2017-10-11 17:30 | General Progress Note ---
Assessment/Plan Problem List: (1) uncontrolled diabetes (2) Hypoglycemia (3) Hypothyroidism ICD Codes: E03.9 - Hypothyroidism, unspecified SNOMED: 33235442 Assessment/Plan Levemir 6 units qhs continue NISS increase Levothyroxine dosage to 137 mcg daily Subjective Allergies: Coded Allergies: No Known Allergies (Verified , 09/02/07) All Systems: reviewed and negative except above Subjective presented with abdominal pain and anemia no hx of GI bleed diabetes out of control with hypoglycemia on Lantus and Novolog regimen as OP hx of hypothyroidism on Levothyroxine 112 mcg as OP TSH is significantly elevated Objective Last 24 Hour Vital Signs Date Time Temp Pulse Resp B/P (MAP) Pulse Ox O2 Delivery O2 Flow Rate FiO2 10/11/17 12:00 97.5 70 18 124/75 100 Nasal Cannula 4.0 10/11/17 12:00 72 10/11/17 08:00 97.7 75 19 125/75 95 Nasal Cannula 4.0 10/11/17 08:00 70 10/11/17 04:00 67 10/11/17 00:00 75 10/10/17 20:00 75 10/10/17 19:30 94 Nasal Cannula 2.0 28 Intake and Output 10/10/17 10/11/17 19:00 07:00 Intake Total 800 ml 75 ml Balance 800 ml 75 ml Intake Oral 0 ml IV Total 550 ml 75 ml Blood Product 250 ml # Voids 1 2 # Bowel Movements 1 Laboratory Tests 10/11/17 07:00: White Blood Count 4.7L, Red Blood Count 3.92L, Hemoglobin 9.1#L, Hematocrit 29.0 #L, Mean Corpuscular Volume 74#L, Mean Corpuscular Hemoglobin 23.2L, Mean Corpuscular Hemoglobin Concent 31.3L, Red Cell Distribution Width 22.4H, Platelet Count 283, Mean Platelet Volume 5.8L, Neutrophils (%) (Auto) 72.8, Lymphocytes (%) (Auto) 18.5L, Monocytes (%) (Auto) 6.0, Eosinophils (%) (Auto) 1.9, Basophils (%) (Auto) 0.9, Sodium Level 140, Potassium Level 3.7, Chloride Level 105, Carbon Dioxide Level 27, Anion Gap 8, Blood Urea Nitrogen 5L, Creatinine 0.5L, Estimat Glomerular Filtration Rate > 60, Glucose Level 58#L, Calcium Level 7.9L, Total Bilirubin 0.5, Aspartate Amino Transf (AST/SGOT) 17, Alanine Aminotransferase (ALT/SGPT) 15, Alkaline Phosphatase 127H, Total Protein 6.5, Albumin 2.4L, Globulin 4.1, Albumin/Globulin Ratio 0.6L, Triglycerides Level 65, Cholesterol Level 97, LDL Cholesterol 54, HDL Cholesterol 42, Cholesterol/HDL Ratio 2.3L, Thyroid Stimulating Hormone (TSH) 24.306H, Free Thyroxine 0.82, Free Triiodothyronine 1.2L Height (Feet): 5 Height (Inches): 0.00 Weight (Pounds): 120 General Appearance: no apparent distress Neck: normal alignment Cardiovascular: normal rate Respiratory/Chest: lungs clear Abdomen: normal bowel sounds Pelvis: normal external exam Edema: no edema noted Arm (L), no edema noted Arm (R), no edema noted Leg (L), no edema noted Leg (R), no edema noted Pedal (L), no edema noted Pedal (R), no edema noted Generalized Objective Current Medications Medications (Trade) Dose Ordered Sig/Alycia Route PRN Reason Start Time Stop Time Status Last Admin Dose Admin Acetaminophen (Tylenol) 650 mg Q4H PRN ORAL T>100.5 10/10/17 13:15 11/09/17 13:14 Al Hydroxide/Mg Hydroxide (Mylanta II) 30 ml Q6H PRN ORAL dyspepsia 10/10/17 13:15 11/09/17 13:14 Dextrose (Dextrose 50%) STAT PRN IV Hypoglycemia 10/10/17 13:30 11/09/17 13:29 Insulin Aspart (NovoLOG) BEFORE MEALS AND HS SUBQ 10/10/17 16:30 11/09/17 16:29 10/10/17 17:58 Lorazepam (Ativan 2mg/ml 1ml) 0.5 mg Q4H PRN IV For Anxiety 10/10/17 13:15 10/17/17 13:14 Morphine Sulfate (Morphine Sulfate) 1 mg Q4H PRN IVP PAIN 4-10 10/10/17 13:15 10/17/17 13:14 Ondansetron HCl (Zofran) 4 mg Q6H PRN IVP Nausea & Vomiting 10/10/17 13:15 11/09/17 13:14 Polyethylene Glycol (Miralax) 17 gm HSPRN PRN ORAL Constipation 10/10/17 21:00 11/09/17 20:59 Promethazine HCl/ Codeine (Phenergan with Codeine) 5 ml Q6H ORAL 10/10/17 20:00 11/09/17 19:59 10/11/17 13:49 Sodium Chloride 1,000 ml @ 75 mls/hr [id number] IV 10/10/17 17:30 11/09/17 17:29 10/11/17 13:49 Zolpidem Tartrate (Ambien) 5 mg HSPRN PRN ORAL Insomnia 10/10/17 21:00 10/17/17 20:59 Item Value Date Time Bedside Blood Glucose 79 mg/dl 10/11/17 1130 Glucose Level 58 MG/DL L # 10/11/17 0700 Bedside Blood Glucose 66 mg/dl L 10/11/17 0625 Bedside Blood Glucose 63 mg/dl L 10/10/17 2042 Bedside Blood Glucose 134 mg/dl H 10/10/17 1758 Bedside Blood Glucose 175 mg/dl H 10/10/17 1243 Glucose Level 175 MG/DL H 10/10/17 1030 JACQUELINE PEOPLES Oct 11, 2017 17:30
[2017-10-11] MEDS ORDERED: Mylanta II UD 30ml ORAL PRN (18:00)
[2017-10-11] MEDS ORDERED: Morphine Sulfate 2mg/ml Inj IVP PRN (18:00)
[2017-10-11] MEDS ORDERED: LORazepam Inj 2mg/ml 1ml IV PRN (18:00)
--- NOTE | 2017-10-11 18:06 | Diagnostic Imaging Report ---
Indication: Pain Technique: CT of the abdomen and pelvis utilizing automated exposure control with intravenous contrast. Venous scanning performed. CT dose: Total DLP 713.08 mGycm; CTDI vol 14.36 mGy Comparison: 09/02/2007 Findings: Moderate to large bilateral pleural effusions with dense atelectasis/consolidation of the bilateral lower lobes. Heart size within normal limits. No pericardial effusion. There is mild periportal edema, nonspecific finding possibly reflective hypervolemia. No focal liver lesion appreciated. Hepatic veins and portal veins appear patent. Calcification noted layering dependently in the gallbladder, likely calcified gallstones. There is question of thickened gallbladder wall/pericholecystic fluid however this was not seen on ultrasound exam performed earlier today. No pericystic inflammatory change. Spleen, adrenal glands and pancreas grossly unremarkable. Kidneys enhance symmetrically. No hydronephrosis or urinary tract stones noted bilaterally. The bladder is moderately distended but otherwise unremarkable. Fluid signal is noted within the endometrial canal. There is slight prominence of the cervix. Consider pelvic ultrasound for further evaluation, especially if patient is postmenopausal. Cystic structures are noted in the bilateral adnexa. There is no bowel obstruction. No free intraperitoneal air. There is mild abdominal pelvic ascites with fluid layering in the pelvis as well as trace fluid around the liver. No appreciable focal or diffuse bowel wall thickening or definite perienteric inflammatory change seen. Appendix is not definitively visualized however there is no secondary signs to suggest acute appendicitis. Abdominal aorta is normal. No bulky retroperitoneal, abdominal or pelvic lymphadenopathy is seen. No acute osseous body is identified. A 2 cm focus of soft tissue attenuation in the subcutaneous fat of the right periumbilical region is noted, nonspecific possibly related to prior medication injection or trauma. Impression: Moderate to large bilateral pleural effusions with atelectasis/consolidation in the bilateral lower lobes. Cholelithiasis with questionable gallbladder wall thickening. No definite pericholecystic inflammatory change No gallbladder wall thickening or pericholecystic fluid was seen on concurrent ultrasound. If there is clinical concern for acute cholecystitis, consider repeat ultrasound or HIDA scan. Fluid noted within the endometrial canal, a finding which may be considered normal in the menopausal female. There is questionable prominence/irregularity of the cervix. Recommend further evaluation with pelvic ultrasound. This corresponds with the statrad preliminary report with some discrepancy with findings of the sinuses report was discussed with the treating nurse on 4E on 10/11/2017. The CT scanner at [facility] is accredited by the [employer] and the scans are performed using protocols designed to limit radiation exposure to as low as reasonably achievable to attain images of sufficient resolution adequate for diagnostic evaluation.
--- NOTE | 2017-10-11 18:16 | Cardiology Report ---
APPROVED REPORT EKG Measurement Heart [id number] Most likely sinus rhythm Cannot rule out Anterior infarct, age undetermined Abnormal ECG
--- NOTE | 2017-10-11 18:44 | Diagnostic Imaging Report ---
Indication: Status post thoracentesis Technique: XRAY Chest 1v Comparison: Earlier the same day. Findings: Significant interval reduction of the previously seen left-sided pleural effusion. There is no definite pneumothorax status post thoracentesis. There is patchy opacity in the left base thought to represent atelectasis. There is moderate right-sided pleural effusion with adjacent right basilar atelectasis/consolidation. Impression: Near complete resolution of the previously seen left pleural effusion status post thoracentesis. No definite pneumothorax. No change in right-sided pleural effusion and right basilar atelectasis/consolidation.
[2017-10-11 20:00] VITALS: BP 128/72
[2017-10-11] MEDS ORDERED: Promethazine/Codeine 5ml UD ORAL PRN (20:00)
[2017-10-11] MEDS ORDERED: Zolpidem 5mg tab ORAL PRN (21:00)
[2017-10-11] MEDS ORDERED: Iron Sucrose 100 MG in NS 55 ML IV SCH (21:00)
[2017-10-11] MEDS ORDERED: Miralax 17gm pkt ORAL PRN (21:00)
[2017-10-11] MEDS ORDERED: Levemir Flexpen SUBQ SCH ×2 (21:00)
[2017-10-11] MEDS ORDERED: Fleet's Enema 133ml RECTAL ONE (23:00)
[2017-10-12] VITALS: BP 125/74
[2017-10-12 04:00] VITALS: BP 126/71
[2017-10-12] MEDS: NovoLOG Insulin Flexpen SUBQ SCH ×3 (06:06→16:30)
[2017-10-12] MEDS ORDERED: Levothyroxine 125mcg tab ORAL SCH ×2 (06:30)
[2017-10-12] MEDS ORDERED: Levothyroxine 25mcg tab ORAL SCH (06:30)
[2017-10-12 07:31] LABS: BASOPHILS % (AUTO) 1.1 % (0.0-2.0); EOSINOPHILS % (AUTO) 0.3 % (0.0-3.0); HEMATOCRIT 31.7 % (37.0-47.0); HEMOGLOBIN 9.5 G/DL (12.0-16.0); MEAN CORPUSCULAR VOLUME 75 FL (80-99); MONOCYTES % (AUTO) 5.3 % (1.0-10.0); NEUTROPHILS % (AUTO) 84.3 % (45.0-75.0); PLATELET COUNT 277 K/UL (150-450); RED BLOOD COUNT 4.25 M/UL (4.20-5.40); RED CELL DISTRIBUTION WIDTH 22.9 % (11.6-14.8); WHITE BLOOD COUNT 5.1 K/UL (4.8-10.8)
[2017-10-12 07:49] LABS: INR 0.9 (0.9-1.1)
[2017-10-12 08:00] VITALS: BP 133/81
[2017-10-12 08:18] LABS: % IRON SATURATION 37 % (15-50); IRON 162 ug/dL (50-175); TOTAL IRON BINDING CAPACITY 438 ug/dL (250-450)
[2017-10-12 08:28] LABS: ANION GAP 11 mmol/L (5-15); BLOOD UREA NITROGEN 5 mg/dL (7-18); CALCIUM 8.3 MG/DL (8.5-10.1); CARBON DIOXIDE 24 MMOL/L (21-32); CHLORIDE 104 MMOL/L (98-107); CREATININE 0.5 MG/DL (0.55-1.30); FERRITIN 31 NG/ML (8-388); SODIUM 139 MMOL/L (136-145)
--- NOTE | 2017-10-12 09:30 | General Progress Note ---
Assessment/Plan Problem List: (1) uncontrolled diabetes (2) Hypoglycemia (3) Hypothyroidism ICD Codes: E03.9 - Hypothyroidism, unspecified SNOMED: 14012570 Assessment/Plan DC Levemir 6 units qhs continue NISS continue Levothyroxine 137 mcg daily Subjective ROS Limited/Unobtainable: Yes Allergies: Coded Allergies: No Known Allergies (Verified , 09/02/07) Subjective events noted hypoglycemia this am received only 3 units of Levemir last night due to NPO status thoracentesis is planned for today Objective Last 24 Hour Vital Signs Date Time Temp Pulse Resp B/P (MAP) Pulse Ox O2 Delivery O2 Flow Rate FiO2 10/12/17 08:00 97.0 78 19 133/81 97 10/12/17 04:00 97.9 78 21 126/71 93 10/12/17 00:00 98.2 81 20 125/74 94 10/11/17 20:00 98.3 75 21 128/72 98 10/11/17 17:00 98.1 73 16 122/72 94 Nasal Cannula 4.0 10/11/17 12:00 97.5 70 18 124/75 100 Nasal Cannula 4.0 10/11/17 12:00 72 Intake and Output 10/11/17 10/12/17 19:00 07:00 Intake Total 450 ml Balance 450 ml IV Total 450 ml # Voids 2 2 # Bowel Movements 1 Laboratory Tests 10/12/17 05:30: White Blood Count 5.1, Red Blood Count 4.25, Hemoglobin 9.5L, Hematocrit 31.7L, Mean Corpuscular Volume 75L, Mean Corpuscular Hemoglobin 22.5L, Mean Corpuscular Hemoglobin Concent 30.1L, Red Cell Distribution Width 22.9H, Platelet Count 277, Mean Platelet Volume 5.5L, Neutrophils (%) (Auto) 84.3H, Lymphocytes (%) (Auto) 9.0L, Monocytes (%) (Auto) 5.3, Eosinophils (%) (Auto) 0.3, Basophils (%) (Auto) 1.1, Reticulocyte Count [Pending], Prothrombin Time 9.8, Prothromb Time International Ratio 0.9, Activated Partial Thromboplast Time 27, Sodium Level 139, Potassium Level 4.0, Chloride Level 104, Carbon Dioxide Level 24, Anion Gap 11, Blood Urea Nitrogen 5L, Creatinine 0.5L, Estimat Glomerular Filtration Rate > 60, Glucose Level 40L, Calcium Level 8.3L, Iron Level 162, Total Iron Binding Capacity 438, Percent Iron Saturation 37, Unsaturated Iron Binding 276, Ferritin 31, Vitamin B12 Level 746, Folate 15.8, Thyroid Stimulating Hormone (TSH) 12.613H Height (Feet): 5 Height (Inches): 0.00 Weight (Pounds): 120 General Appearance: no apparent distress Cardiovascular: bradycardia Respiratory/Chest: decreased breath sounds Abdomen: non tender Pelvis: normal external exam Objective Current Medications Medications (Trade) Dose Ordered Sig/Alycia Route PRN Reason Start Time Stop Time Status Last Admin Dose Admin Acetaminophen (Tylenol) 650 mg Q4H PRN ORAL T>100.5 10/11/17 18:00 11/09/17 17:59 Al Hydroxide/Mg Hydroxide (Mylanta II) 30 ml Q6H PRN ORAL dyspepsia 10/11/17 18:00 11/09/17 17:59 Dextrose (Dextrose 50%) STAT PRN IV Hypoglycemia 10/12/17 18:00 11/10/17 17:59 10/12/17 05:59 Insulin Aspart (NovoLOG) BEFORE MEALS AND HS SUBQ 10/11/17 21:00 11/09/17 16:29 10/11/17 20:57 Insulin Detemir (Levemir) 6 units BEDTIME SUBQ 10/11/17 21:00 11/10/17 20:59 10/11/17 20:59 Iron Sucrose 100 mg/Sodium Chloride 60 ml @ 240 mls/hr BEDTIME IV 10/11/17 21:00 10/15/17 21:14 10/11/17 20:47 Levothyroxine Sodium (Synthroid) 25 mcg DAILY@0630 ORAL 10/12/17 06:30 11/11/17 06:29 10/12/17 05:59 Levothyroxine Sodium (Synthroid) 112 mcg DAILY@0630 ORAL 10/12/17 06:30 11/11/17 06:29 10/12/17 05:59 Lorazepam (Ativan 2mg/ml 1ml) 0.5 mg Q4H PRN IV For Anxiety 10/11/17 18:00 10/17/17 17:59 Morphine Sulfate (Morphine Sulfate) 1 mg Q4H PRN IVP PAIN 4-10 10/11/17 18:00 10/17/17 17:59 Ondansetron HCl (Zofran) 4 mg Q6H PRN IVP Nausea & Vomiting 10/11/17 18:00 11/09/17 17:59 Polyethylene Glycol (Miralax) 17 gm HSPRN PRN ORAL Constipation 10/11/17 21:00 11/09/17 20:59 Promethazine HCl/ Codeine (Phenergan with Codeine) 5 ml Q6H PRN ORAL For Cough 10/11/17 20:00 11/09/17 19:59 Sodium Chloride 1,000 ml @ 75 mls/hr [id number] IV 10/11/17 18:00 11/09/17 17:29 10/11/17 18:00 Zolpidem Tartrate (Ambien) 5 mg HSPRN PRN ORAL Insomnia 10/11/17 21:00 10/17/17 20:59 Item Value Date Time Bedside Blood Glucose 198 mg/dl H 10/12/17 0635 Bedside Blood Glucose 131 mg/dl H 10/11/17 2100 Bedside Blood Glucose 71 mg/dl 10/11/17 1715 Bedside Blood Glucose 79 mg/dl 10/11/17 1130 Bedside Blood Glucose 66 mg/dl L 10/11/17 0625 JACQUELINE PEOPLES Oct 12, 2017 09:30
--- NOTE | 2017-10-12 10:53 | General Surgery Progress Note ---
General Surgery-Progress Note Subjective Symptoms: improved Additional Comments states she feels better. no sob, no pain, no cp. cough improved. no n/v/f/c. had successful thoracentesis on left side yesterday. Objective Last 24 Hour Vital Signs Date Time Temp Pulse Resp B/P (MAP) Pulse Ox O2 Delivery O2 Flow Rate FiO2 10/12/17 08:00 97.0 78 19 133/81 97 10/12/17 04:00 97.9 78 21 126/71 93 10/12/17 00:00 98.2 81 20 125/74 94 10/11/17 20:00 98.3 75 21 128/72 98 10/11/17 17:00 98.1 73 16 122/72 94 Nasal Cannula 4.0 10/11/17 12:00 97.5 70 18 124/75 100 Nasal Cannula 4.0 10/11/17 12:00 72 I&O Intake and Output 10/11/17 10/12/17 19:00 07:00 Intake Total 450 ml Balance 450 ml IV Total 450 ml # Voids 2 2 # Bowel Movements 1 Drains: none Cardiovascular: RSR Respiratory: clear Abdomen: soft, flat, non-tender, present bowel sounds Extremities: no tenderness Laboratory Tests Test 10/12/17 05:30 White Blood Count 5.1 K/UL (4.8-10.8) Red Blood Count 4.25 M/UL (4.20-5.40) Hemoglobin 9.5 G/DL (12.0-16.0) L Hematocrit 31.7 % (37.0-47.0) L Mean Corpuscular Volume 75 FL (80-99) L Mean Corpuscular Hemoglobin 22.5 PG (27.0-31.0) L Mean Corpuscular Hemoglobin Concent 30.1 G/DL (32.0-36.0) L Red Cell Distribution Width 22.9 % (11.6-14.8) H Platelet Count 277 K/UL (150-450) Mean Platelet Volume 5.5 FL (6.5-10.1) L Neutrophils (%) (Auto) 84.3 % (45.0-75.0) H Lymphocytes (%) (Auto) 9.0 % (20.0-45.0) L Monocytes (%) (Auto) 5.3 % (1.0-10.0) Eosinophils (%) (Auto) 0.3 % (0.0-3.0) Basophils (%) (Auto) 1.1 % (0.0-2.0) Reticulocyte Count 1.4 % (0.0-2.0) Prothrombin Time 9.8 SEC (9.30-11.50) Prothromb Time International Ratio 0.9 (0.9-1.1) Activated Partial Thromboplast Time 27 SEC (23-33) Sodium Level 139 MMOL/L (136-145) Potassium Level 4.0 MMOL/L (3.5-5.1) Chloride Level 104 MMOL/L (98-107) Carbon Dioxide Level 24 MMOL/L (21-32) Anion Gap 11 mmol/L (5-15) Blood Urea Nitrogen 5 mg/dL (7-18) L Creatinine 0.5 MG/DL (0.55-1.30) L Estimat Glomerular Filtration Rate > 60 mL/min (>60) Glucose Level 40 MG/DL (74-106) L Calcium Level 8.3 MG/DL (8.5-10.1) L Iron Level 162 ug/dL (50-175) Total Iron Binding Capacity 438 ug/dL (250-450) Percent Iron Saturation 37 % (15-50) Unsaturated Iron Binding 276 ug/dL (112-346) Ferritin 31 NG/ML (8-388) Vitamin B12 Level 746 PG/ML (193-986) Folate 15.8 NG/ML (8.6-58.9) Thyroid Stimulating Hormone (TSH) 12.613 uiU/mL (0.358-3.740) Plan Problems: (1) Abdominal pain Assessment & Plan: 42F with epigastric abdominal pain, nausea, non bloody emesis, severe anemia, sob, cough, flu like symptoms, bilateral large pleural effusions. labs reviewed. no significant intraabdominal pathology. no acute surgical intervention necessary. etiology of anemia needs further work up and patient requires resuscitation. -IR drainage of bilateral large pleural effusions. had left side yesterday and plans for right side today. (CXR looks good. labs improved) -npo... can start diet after drainage procedure. -iv fluids -iv abx -trend labs -transfuse prbc prn -GI, oncology consult -will follow with recs thank you for this consultation. Miko Thmoas Oct 12, 2017 10:53
[2017-10-12 12:00] VITALS: BP 127/88
--- NOTE | 2017-10-12 12:36 | Diagnostic Imaging Report ---
Indication: Status post thoracentesis Comparison: None A single view chest radiograph was obtained. Findings: There is no pneumothorax. Lungs appear clear currently. Costophrenic angles are sharp currently. Borderline cardiomegaly noted. IMPRESSION: No pneumothorax
--- NOTE | 2017-10-12 13:12 | General Progress Note ---
Assessment/Plan Problem List: (1) Bilateral pleural effusion ICD Codes: J90 - Pleural effusion, not elsewhere classified SNOMED: 810566541 (2) Hypothyroidism ICD Codes: E03.9 - Hypothyroidism, unspecified SNOMED: 87999494 (3) Anemia (4) Malnutrition ICD Codes: E46 - Malnutrition SNOMED: 3200609 (5) DM (diabetes mellitus) ICD Codes: E11.9 - DM (diabetes mellitus) SNOMED: 59432326 (6) Abdominal pain ICD Codes: R10.9 - Abdominal pain SNOMED: 74770942 Status: unchanged Assessment/Plan ot pt diet heme and gi f/e endo eval cbc bmp am Subjective Constitutional: Reports: weakness Allergies: Coded Allergies: No Known Allergies (Verified , 09/02/07) All Systems: reviewed and negative except above Subjective sleepy calm Objective Last 24 Hour Vital Signs Date Time Temp Pulse Resp B/P (MAP) Pulse Ox O2 Delivery O2 Flow Rate FiO2 10/12/17 08:00 97.0 78 19 133/81 97 10/12/17 04:00 97.9 78 21 126/71 93 10/12/17 00:00 98.2 81 20 125/74 94 10/11/17 20:00 98.3 75 21 128/72 98 10/11/17 17:00 98.1 73 16 122/72 94 Nasal Cannula 4.0 Intake and Output 10/11/17 10/12/17 19:00 07:00 Intake Total 450 ml Balance 450 ml IV Total 450 ml # Voids 2 2 # Bowel Movements 1 Laboratory Tests 10/12/17 05:30: White Blood Count 5.1, Red Blood Count 4.25, Hemoglobin 9.5L, Hematocrit 31.7L, Mean Corpuscular Volume 75L, Mean Corpuscular Hemoglobin 22.5L, Mean Corpuscular Hemoglobin Concent 30.1L, Red Cell Distribution Width 22.9H, Platelet Count 277, Mean Platelet Volume 5.5L, Neutrophils (%) (Auto) 84.3H, Lymphocytes (%) (Auto) 9.0L, Monocytes (%) (Auto) 5.3, Eosinophils (%) (Auto) 0.3, Basophils (%) (Auto) 1.1, Reticulocyte Count 1.4, Prothrombin Time 9.8, Prothromb Time International Ratio 0.9, Activated Partial Thromboplast Time 27, Sodium Level 139, Potassium Level 4.0, Chloride Level 104, Carbon Dioxide Level 24, Anion Gap 11, Blood Urea Nitrogen 5L, Creatinine 0.5L, Estimat Glomerular Filtration Rate > 60, Glucose Level 40L, Calcium Level 8.3L, Iron Level 162, Total Iron Binding Capacity 438, Percent Iron Saturation 37, Unsaturated Iron Binding 276, Ferritin 31, Vitamin B12 Level 746, Folate 15.8, Thyroid Stimulating Hormone (TSH) 12.613H Height (Feet): 5 Height (Inches): 0.00 Weight (Pounds): 120 General Appearance: lethargic EENT: normal ENT inspection Neck: normal alignment Cardiovascular: normal peripheral pulses, normal rate, regular rhythm Respiratory/Chest: chest wall non-tender, lungs clear, normal breath sounds Abdomen: normal bowel sounds, non tender, soft Extremities: normal inspection Edema: no edema noted Arm (L), no edema noted Arm (R), no edema noted Leg (L), no edema noted Leg (R), no edema noted Pedal (L), no edema noted Pedal (R), no edema noted Generalized Neurologic: motor weakness Skin: normal pigmentation, warm/dry MEHDI JAFFE Oct 12, 2017 13:12
--- NOTE | 2017-10-12 15:48 | Pulmonology Progress Note ---
Assessment/Plan Problems: (1) Symptomatic anemia (2) Dysfunctional uterine bleeding (3) DM (diabetes mellitus) (4) Pleural effusion Assessment/Plan improving sliding scale s/p thoracentesis dc planing Subjective ROS Limited/Unobtainable: No Constitutional: Reports: no symptoms HEENT: Repors: no symptoms Respiratory: Reports: no symptoms Allergies: Coded Allergies: No Known Allergies (Verified , 09/02/07) Objective Last 24 Hour Vital Signs Date Time Temp Pulse Resp B/P (MAP) Pulse Ox O2 Delivery O2 Flow Rate FiO2 10/12/17 12:00 97.3 89 19 127/88 99 10/12/17 08:00 97.0 78 19 133/81 97 10/12/17 04:00 97.9 78 21 126/71 93 10/12/17 00:00 98.2 81 20 125/74 94 10/11/17 20:00 98.3 75 21 128/72 98 10/11/17 17:00 98.1 73 16 122/72 94 Nasal Cannula 4.0 Intake and Output 10/11/17 10/12/17 19:00 07:00 Intake Total 450 ml Balance 450 ml IV Total 450 ml # Voids 2 2 # Bowel Movements 1 General Appearance: WD/WN HEENT: atraumatic Respiratory/Chest: chest wall non-tender, normal breath sounds Breasts: no masses Cardiovascular: normal peripheral pulses Abdomen: normal bowel sounds, no organomegaly Genitourinary: normal external genitalia Extremities: no cyanosis Microbiology Date/Time Source Procedure Growth Status 10/11/17 14:10 Drainage Fluid Gram Stain - Final Resulted 10/11/17 14:10 Drainage Fluid Aerobic Culture - Preliminary NO GROWTH AFTER 24 HOURS Resulted 10/11/17 14:10 Drainage Fluid Anaerobic Culture Pending Resulted 10/10/17 09:40 Urine,Clean Catch Urine Culture - Final Mixed Gram Positive Organism Complete Laboratory Tests 10/12/17 05:30: White Blood Count 5.1, Red Blood Count 4.25, Hemoglobin 9.5L, Hematocrit 31.7L, Mean Corpuscular Volume 75L, Mean Corpuscular Hemoglobin 22.5L, Mean Corpuscular Hemoglobin Concent 30.1L, Red Cell Distribution Width 22.9H, Platelet Count 277, Mean Platelet Volume 5.5L, Neutrophils (%) (Auto) 84.3H, Lymphocytes (%) (Auto) 9.0L, Monocytes (%) (Auto) 5.3, Eosinophils (%) (Auto) 0.3, Basophils (%) (Auto) 1.1, Reticulocyte Count 1.4, Prothrombin Time 9.8, Prothromb Time International Ratio 0.9, Activated Partial Thromboplast Time 27, Sodium Level 139, Potassium Level 4.0, Chloride Level 104, Carbon Dioxide Level 24, Anion Gap 11, Blood Urea Nitrogen 5L, Creatinine 0.5L, Estimat Glomerular Filtration Rate > 60, Glucose Level 40L, Calcium Level 8.3L, Iron Level 162, Total Iron Binding Capacity 438, Percent Iron Saturation 37, Unsaturated Iron Binding 276, Ferritin 31, Vitamin B12 Level 746, Folate 15.8, Thyroid Stimulating Hormone (TSH) 12.613H Current Medications Medications (Trade) Dose Ordered Sig/Alycia Route PRN Reason Start Time Stop Time Status Last Admin Dose Admin Acetaminophen (Tylenol) 650 mg Q4H PRN ORAL T>100.5 10/11/17 18:00 11/09/17 17:59 Al Hydroxide/Mg Hydroxide (Mylanta II) 30 ml Q6H PRN ORAL dyspepsia 10/11/17 18:00 11/09/17 17:59 Dextrose (Dextrose 50%) STAT PRN IV Hypoglycemia 10/12/17 18:00 11/10/17 17:59 10/12/17 05:59 Insulin Aspart (NovoLOG) BEFORE MEALS AND HS SUBQ 10/11/17 21:00 11/09/17 16:29 10/12/17 13:23 Insulin Detemir (Levemir) 6 units BEDTIME SUBQ 10/11/17 21:00 11/10/17 20:59 10/11/17 20:59 Iron Sucrose 100 mg/Sodium Chloride 60 ml @ 240 mls/hr BEDTIME IV 10/11/17 21:00 10/15/17 21:14 10/11/17 20:47 Levothyroxine Sodium (Synthroid) 25 mcg DAILY@0630 ORAL 10/12/17 06:30 11/11/17 06:29 10/12/17 05:59 Levothyroxine Sodium (Synthroid) 112 mcg DAILY@0630 ORAL 10/12/17 06:30 11/11/17 06:29 10/12/17 05:59 Lorazepam (Ativan 2mg/ml 1ml) 0.5 mg Q4H PRN IV For Anxiety 10/11/17 18:00 10/17/17 17:59 Morphine Sulfate (Morphine Sulfate) 1 mg Q4H PRN IVP PAIN 4-10 10/11/17 18:00 10/17/17 17:59 Ondansetron HCl (Zofran) 4 mg Q6H PRN IVP Nausea & Vomiting 10/11/17 18:00 11/09/17 17:59 Polyethylene Glycol (Miralax) 17 gm HSPRN PRN ORAL Constipation 10/11/17 21:00 11/09/17 20:59 Promethazine HCl/ Codeine (Phenergan with Codeine) 5 ml Q6H PRN ORAL For Cough 10/11/17 20:00 11/09/17 19:59 Sodium Chloride 1,000 ml @ 75 mls/hr [id number] IV 10/11/17 18:00 11/09/17 17:29 10/12/17 07:20 Zolpidem Tartrate (Ambien) 5 mg HSPRN PRN ORAL Insomnia 10/11/17 21:00 10/17/17 20:59 BRENT GOLDSTEIN Oct 12, 2017 15:48
[2017-10-12 15:53] VITALS: BP 95/62
--- NOTE | 2017-10-12 16:00 | History and Physical Report ---
DATE OF ADMISSION: 10/11/2017 TIME SEEN: 8 a.m. CONSULTANTS: 1. Miko Thomas M.D. 2. Maverick Welch M.D. 3. Edin Correia M.D. 4. Nemesio Torres M.D. CHIEF COMPLAINT: Nausea, vomiting, abdominal pain, shortness of breath, and severe anemia. BRIEF HISTORY: This is a 42-year-old female, who lives at home presented with the above-mentioned diagnosis, admitted to [facility] for further care. Currently feeling a little bit better posttransfusion. No complaint, otherwise. REVIEW OF SYSTEMS: No chest pain. Slight short of breath. Slight nausea and vomiting. No diarrhea. PAST MEDICAL HISTORY: Includes anemia and short of breath. PAST SURGICAL HISTORY: None. MEDICATIONS: Include MiraLAX, Ambien, Phenergan With Codeine, NovoLog, dextrose, Tylenol, morphine, Zofran, lorazepam, and ceftriaxone was given. ALLERGIES: Denies. SOCIAL HISTORY: No smoking. No alcohol. No intravenous drug abuse. FAMILY HISTORY: Noncontributory. PHYSICAL EXAMINATION: GENERAL: Calm in bed, oriented x3, no acute distress. VITAL SIGNS: Show temperature is 98, pulse 67, respirations 18, and blood pressure 144/98. CARDIOVASCULAR: No murmur. LUNGS: Poor exchange. ABDOMEN: Bowel sounds distant. EXTREMITIES: Show no cyanosis, clubbing, or edema. NEUROLOGIC: The patient moves all extremities. Slightly weak. LABORATORY DATA: Labs at this time show initial white count 3.4, hemoglobin and hematocrit was 4.6/16 and that was before transfusion and platelet was 286. BMP shows BUN and creatinine 6/0.5, glucose 175. Alkaline phosphatase 129. Albumin 2.6. Lipase 67. INR is 1.0 and PTT is 25. Urinalysis, 2+ occult blood, 3+ leukocyte esterase. ASSESSMENT: 1. Severe anemia. 2. Abdominal pain. 3. Diabetes. 4. Malnutrition. 5. Vomiting. 6. Pleural effusion. 7. Shortness of breath. 8. Urinary tract infection. PLAN: 1. Transfusion has been done. 2. Blood pressure and blood sugar controlled. 3. Dietary followup. 4. OT, PT, dietary evaluation. 5. CBC and BMP in the morning. 6. Antibiotic per Infectious Disease. 7. Dr. Thomas, Dr. Welch, Dr. Correia, Dr. Torres, and Dr. Moore to consult. 8. We will continue to follow this patient. Frederic Avila D.O. DR: SAM JOB#: [id number] CC:
--- NOTE | 2017-10-12 16:08 | Diagnostic Imaging Report ---
Indications: Pleural effusion Technique: Ultrasound used to localize optimal puncture site. Sterile prepping and draping of the right lower chest performed. Local anesthesia with 1% lidocaine. Dermatotomy made. Puncture of the pleural space using thoracentesis needle. Stylet removed. Catheter placed to vacuum bottle suction. Fluid was aspirated. Patient tolerated procedure well, without immediate complication. Findings: Followup sonography demonstrates complete resolution of pleural fluid. Followup chest x-ray is pending. Impression: Successful ultrasound-guided right thoracentesis, yielding 1.1 liters of fluid
--- NOTE | 2017-10-12 16:26 | GI Progress Note ---
Assessment/Plan Problems: (1) Diabetes mellitus out of control ICD Codes: E11.65 - Diabetes mellitus out of control SNOMED: 933955376 (2) Abdominal pain ICD Codes: R10.9 - Abdominal pain SNOMED: 67156180 (3) Abnormal liver enzymes ICD Codes: R74.8 - Abnormal liver enzymes SNOMED: 954507737 (4) Malnutrition ICD Codes: E46 - Malnutrition SNOMED: 4817524 (5) Pleural effusion ICD Codes: J90 - Pleural effusion, not elsewhere classified SNOMED: 42862295 Status: stable Status Narrative Discussed with Dr. Correia. Assessment/Plan hepatitis panel >> negative anemia work up reviewed >> suggestive of hypothyroidism to be managed by PCP scheduled for - IR drainage of bilateral large pleural effusions. will consider EGD/colonoscopy pending anemia work up OB stool r/o GI bleed monitor H&H, prn transfusions bowel regime ppi ok for diet after IR drainage. fu labs Subjective Gastrointestinal/Abdominal: Reports: no symptoms Subjective denies abdominal pain, SOB. Objective Last 24 Hour Vital Signs Date Time Temp Pulse Resp B/P (MAP) Pulse Ox O2 Delivery O2 Flow Rate FiO2 10/12/17 15:53 97.9 81 22 95/62 99 Room Air 10/12/17 12:00 97.3 89 19 127/88 99 10/12/17 08:00 97.0 78 19 133/81 97 10/12/17 04:00 97.9 78 21 126/71 93 10/12/17 00:00 98.2 81 20 125/74 94 10/11/17 20:00 98.3 75 21 128/72 98 10/11/17 17:00 98.1 73 16 122/72 94 Nasal Cannula 4.0 Intake and Output 10/11/17 10/12/17 19:00 07:00 Intake Total 450 ml Balance 450 ml IV Total 450 ml # Voids 2 2 # Bowel Movements 1 Laboratory Tests Test 10/12/17 05:30 White Blood Count 5.1 K/UL (4.8-10.8) Red Blood Count 4.25 M/UL (4.20-5.40) Hemoglobin 9.5 G/DL (12.0-16.0) L Hematocrit 31.7 % (37.0-47.0) L Mean Corpuscular Volume 75 FL (80-99) L Mean Corpuscular Hemoglobin 22.5 PG (27.0-31.0) L Mean Corpuscular Hemoglobin Concent 30.1 G/DL (32.0-36.0) L Red Cell Distribution Width 22.9 % (11.6-14.8) H Platelet Count 277 K/UL (150-450) Mean Platelet Volume 5.5 FL (6.5-10.1) L Neutrophils (%) (Auto) 84.3 % (45.0-75.0) H Lymphocytes (%) (Auto) 9.0 % (20.0-45.0) L Monocytes (%) (Auto) 5.3 % (1.0-10.0) Eosinophils (%) (Auto) 0.3 % (0.0-3.0) Basophils (%) (Auto) 1.1 % (0.0-2.0) Reticulocyte Count 1.4 % (0.0-2.0) Prothrombin Time 9.8 SEC (9.30-11.50) Prothromb Time International Ratio 0.9 (0.9-1.1) Activated Partial Thromboplast Time 27 SEC (23-33) Sodium Level 139 MMOL/L (136-145) Potassium Level 4.0 MMOL/L (3.5-5.1) Chloride Level 104 MMOL/L (98-107) Carbon Dioxide Level 24 MMOL/L (21-32) Anion Gap 11 mmol/L (5-15) Blood Urea Nitrogen 5 mg/dL (7-18) L Creatinine 0.5 MG/DL (0.55-1.30) L Estimat Glomerular Filtration Rate > 60 mL/min (>60) Glucose Level 40 MG/DL (74-106) L Calcium Level 8.3 MG/DL (8.5-10.1) L Iron Level 162 ug/dL (50-175) Total Iron Binding Capacity 438 ug/dL (250-450) Percent Iron Saturation 37 % (15-50) Unsaturated Iron Binding 276 ug/dL (112-346) Ferritin 31 NG/ML (8-388) Vitamin B12 Level 746 PG/ML (193-986) Folate 15.8 NG/ML (8.6-58.9) Thyroid Stimulating Hormone (TSH) 12.613 uiU/mL (0.358-3.740) Height (Feet): 5 Height (Inches): 0.00 Weight (Pounds): 120 General Appearance: WD/WN, no apparent distress, alert Cardiovascular: normal rate Respiratory/Chest: normal breath sounds, no respiratory distress Abdominal Exam: normal bowel sounds, non tender, soft Extremities: normal range of motion, non-tender Bhavna Early N.P. Oct 12, 2017 16:26
--- NOTE | 2017-10-14 11:34 | Discharge Summary ---
Discharge Summary Hospital Course Date of Admission Oct 10, 2017 at 12:47 Date of Discharge Oct 12, 2017 at 18:46 Admitting Diagnosis abdominal pain anemia MALLORY Cole is a 42 year old female who was admitted on Oct 10, 2017 at 12:47 for Abdominal Pain; Anemia Hospital Course [id number] Discharge Discharge Disposition Patient was discharged to Home (01) Discharge Diagnoses: Simona Light NP Oct 14, 2017 11:34
--- NOTE | 2017-10-14 17:00 | Discharge Summary 2 SIG ---
DATE OF ADMISSION: 10/10/2017 DATE OF DISCHARGE: 10/12/2017 ATTENDING PHYSICIAN: Frederic Avila D.O. CONSULTANTS: 1. Nemesio Torres M.D. 2. Amando Holbrook M.D. 3. Miko Thomas M.D. 4. Edin Correia M.D. BRIEF HOSPITAL COURSE: The patient is a 42-year-old female with prior history of anemia as well as diabetes type 2, presented after increased epigastric pain for the past two days. The patient reported increasing cough with subjective headache and had sharp pain to the epigastric area, which is nonradiating. Denied bloody stools or hematemesis. She has past medical history significant for hypothyroidism anemia and uterine fibroids. On evaluation at ED, CT of the abdomen and pelvis showed bilateral moderate sized pleural effusion with small amount of pericholecystic fluid. Hemoglobin was 4.6, hematocrit was 16.5 and platelet was 286. Urinalysis showed urine WBC 20 to 30 with 3+ leukocyte esterase. She was admitted to telemetry for anemia, diabetes mellitus, and pleural effusion. She was given two units packed RBC blood transfusion. Post transfusion, hemoglobin went up to 9.1. She had abdominal ultrasound done that showed cholelithiasis without evidence of acute cholecystitis. Abdominal and pelvic CT showed moderate to large bilateral pleural effusion. She was seen by Dr. Thomas. There was no acute surgical intervention needed. Recommended drainage of pleural effusion. On 10/11/2017, she underwent ultrasound-guided thoracentesis of the left chest yielding 900 milliliters of yellowish fluid. She was also followed by Gastrointestinal for evaluation of anemia and was placed on PPI. Hepatitis panel was negative. TSH was markedly elevated. Levothyroxine dose was increased to 137 microgram daily. She was given Levemir and was blood glucose was monitored and placed on insulin sliding scale. She underwent thoracentesis of the right lung yielding 1.1 liters of fluid. Gram-stain and culture of pleural fluid was negative. Hemoglobin levels had been stable. Chest x-ray post thoracentesis was negative for pneumothorax. She was eventually discharged home. FINAL DIAGNOSES: 1. Severe acute anemia requiring blood transfusion. 2. Bilateral pleural effusion, status post thoracentesis. 3. Diabetes mellitus type 2. 4. Hypothyroidism. 5. Abnormal liver enzymes. 6. Malnutrition. 7. Uncontrolled diabetes mellitus. DISPOSITION: The patient was discharged home. DISCHARGE MEDICATIONS: Refer to medication list. DISCHARGE INSTRUCTIONS: Follow up with PMD in a week. Nemesio Torres M.D. I have been assigned to dictate discharge summary on this account and I was not involved in the patient's management. Siomna Light N.P. DR: DARREL JOB#: [id number] CC: PEPE
--- NOTE | 2017-10-24 20:32 | Diagnostic Imaging Report ---
APPROVED REPORT CPT Code: 97716 Present Symptoms Shortness of breath Comments: R/O DVT. Past History Prior Lower Extremity Venous DuplexDate : 01/16/2017 BILATERAL LOWER EXTREMITY VENOUS DUPLEX: Imaging reveals a patent deep venous system bilaterally. There is no evidence of thrombus within the femoral, popliteal or tibial segments. The greater saphenous veins are also within normal limits. Doppler indicates normal spontaneous flow within these segments.
== END 2017-10-12 18:46 | disposition home or self-care (01) | DRG 143 ==
LOC: EMR 10:17 → EDBEDREQ 12:29 → 2E 12:47 → 4E 10-11 17:39
PROC: 0W9B3ZZ Drainage of Left Pleural Cavity, Percutaneous Approach (ICD-10-PCS; principal; 2017-10-11)
PROC: 30233N1 Transfusion of Nonautologous Red Blood Cells into Peripheral Vein, Percutaneous Approach (ICD-10-PCS; 2017-10-11)
DX: J90 Pleural effusion, not elsewhere classified (principal); E46 Unspecified protein-calorie malnutrition; E11.649 Type 2 diabetes mellitus with hypoglycemia without coma; D64.9 Anemia, unspecified; E86.0 Dehydration; N93.8 Other specified abnormal uterine and vaginal bleeding; N39.0 Urinary tract infection, site not specified; R10.13 Epigastric pain; R11.2 Nausea with vomiting, unspecified; E03.9 Hypothyroidism, unspecified; R10.9 Unspecified abdominal pain
CPT/HCPCS: 36415; 71045; 74177; 76700; 76942; 80048; 80053; 80061; 81003; 81025; 82378; 82607; 82728; 82746; 82962; 83540; 83550; 83690; 84439; 84443; 84481; 84484; 85007; 85025; 85044; 85610; 85730; 86703; 86705; 86709; 86803; 86850; 86900; 86901; 86920; 87070; 87075; 87086; 87205; 87340; 88104; 93005; 93970; 94760; 97803; 99285; J1815; J2405; S5561

== ENCOUNTER 2017-12-31 08:31 | Emergency (ER) | payer SELFPAY ==
[~2017-12-31] VITALS: Ht 157.5 cm; Wt 49.9 kg
[2017-12-31 08:41] VITALS: BP 119/76
--- NOTE | 2017-12-31 09:07 | Emergency Room Report ---
History of Present Illness General Chief Complaint: Female Urogenital Problems Source: Patient, Medical Record Present Illness HPI 42-year-old female presents ED for evaluation. Patient states she's been having increased vaginal bleeding for the last 4 days. States she is on her period. There is some suprapubic pain, dull, 4 out of 10, nonradiating. States she's had previous episodes of vaginal bleeding in the past. Denies nausea or vomiting. Denies chest pain shortness of breath. No other aggravating relieving factors. Denies any other associated symptoms Allergies: Coded Allergies: No Known Allergies (Verified , 09/02/07) Patient History Past Medical History: DM, HTN, seizures Past Surgical History: none Pertinent Family History: none Social History: Denies: smoking, alcohol use, drug use Last Menstrual Period: 12/28/17 Now: No Immunizations: UTD Reviewed Nursing Documentation: PMH: Agreed; PSxH: Agreed Nursing Documentation-PMH Past Medical History: No History, Except For Hx Cardiac Problems: No - Hypothyroidism, Anemia, Uterine fibroid Hx Hypertension: Yes Hx Pacemaker: No Hx Asthma: No Hx COPD: No Hx Diabetes: Yes Hx Cancer: No Hx Gastrointestinal Problems: No Hx Dialysis: No Hx Neurological Problems: No Hx Cerebrovascular Accident: No Hx Transient Ischemic Attacks: No Hx Dementia: No Hx Alzheimer's Disease: No Hx Parkinson's Disease: No Hx Meningitis: No Hx Encephalitis: No Hx Seizures: Yes Hx Epilepsy: No Hx Multiple Sclerosis: No Hx Cerebral Palsy: No Hx Amyotrophic Lat Sclerosis: No Hx Guillian-[place] Syndrome: No Hx Paralysis: No Hx Peripheral Neuropathy: No Hx Spinal Cord Injury: No Hx Head Trauma: Yes - Fell in the shower and hit her head one day prior to admission Hx Traumatic Brain Injury: No Hx Memory Loss: No Hx Concentration Difficulty: Yes Hx Speech Problem: No Hx Tremors: No Hx Vertigo: No Hx Dizziness: Yes Hx Syncope: No Hx Headaches: Yes Hx Aphasia: No Hx Dysphasia: No Hx Numbness: No Hx Weakness: No Hx Fatigue: Yes Hx Neurologic Surgery: No Hx Brain Shunt: No Review of Systems All Other Systems: negative except mentioned in HPI Physical Exam Vital Signs Date Time Temp Pulse Resp B/P (MAP) Pulse Ox O2 Delivery O2 Flow Rate FiO2 12/31/17 08:36 97.9 75 18 119/76 100 Room Air 97.9 Sp02 EP Interpretation: reviewed, normal General Appearance: no apparent distress, alert, GCS 15, non-toxic Head: normocephalic, atraumatic Eyes: bilateral eye normal inspection, bilateral eye PERRL ENT: hearing grossly normal, normal pharynx, no angioedema, normal voice Neck: full range of motion, supple/symm/no masses Respiratory: chest non-tender, lungs clear, normal breath sounds, speaking full sentences Cardiovascular #1: regular rate, rhythm, no edema Cardiovascular #2: 2+ carotid (R), 2+ carotid (L), 2+ radial (R), 2+ radial (L) , 2+ dorsalis pedis (R), 2+ dorsalis pedis (L) Gastrointestinal: normal bowel sounds, non tender, soft, non-distended, no guarding, no rebound Rectal: deferred Genitourinary: normal inspection, no CVA tenderness Musculoskeletal: back normal, gait/station normal, normal range of motion, non- tender Neurologic: alert, oriented x3, responsive, motor strength/tone normal, sensory intact, speech normal Psychiatric: judgement/insight normal, memory normal, mood/affect normal, no suicidal/homicidal ideation Reflexes: 3+ bicep (R), 3+ bicep (L), 3+ tricep (R), 3+ tricep (L), 3+ knee (R) , 3+ knee (L) Skin: normal color, no rash, warm/dry, well hydrated Lymphatic: no adenopathy Medical Decision Making Diagnostic Impression: Primary Impression: DUB (dysfunctional uterine bleeding) ER Course Hospital Course 42-year-old F presents to ED with vaginal bleeding, abd pain Differential diagnosis includes- ovarian cyst, torsion, ectopic , DUB Clinical course Patient placed on stretcher. After initial history and physical I ordered labs , IV fluids, pain medications and pelvic US Labs - no leukocytosis, Hb/Hct 8.4/27.5, electrolytes ok, LFTs normal, UA unremarkable pelvic US - fibroid I reviewed EMR. Patient has been here multiple times for similar dysfunctional uterine bleeding. Has had hemoglobins much lower which have required transfusion. I believe patient does not require admission or transfusion at this time. Recommend close follow-up with [facility]. I will prescribe Ortho Tri- Cyclen I feel this is a highly complex case requiring extensive working including EKG/ Rhythm strip, Xray/CT/US, Blood/urine lab work, repeat exams while in ED, and administration of strong opiates/narcotics for pain control, admission to hospital or close patient follow up. Diagnosis - DUB Stable and discharged to home with Rx Ortho tri cyclen. Followup with PMD/ OBGYN. Return to ED if symptoms recur or worsen Labs Test 12/31/17 09:10 White Blood Count 3.4 K/UL (4.8-10.8) Red Blood Count 3.46 M/UL (4.20-5.40) Hemoglobin 8.4 G/DL (12.0-16.0) Hematocrit 27.5 % (37.0-47.0) Mean Corpuscular Volume 80 FL (80-99) Mean Corpuscular Hemoglobin 24.2 PG (27.0-31.0) Mean Corpuscular Hemoglobin Concent 30.4 G/DL (32.0-36.0) Red Cell Distribution Width 20.6 % (11.6-14.8) Platelet Count 292 K/UL (150-450) Mean Platelet Volume 6.3 FL (6.5-10.1) Neutrophils (%) (Auto) % (45.0-75.0) Lymphocytes (%) (Auto) % (20.0-45.0) Monocytes (%) (Auto) % (1.0-10.0) Eosinophils (%) (Auto) % (0.0-3.0) Basophils (%) (Auto) % (0.0-2.0) Differential Total Cells Counted 100 Neutrophils % (Manual) 61 % (45-75) Lymphocytes % (Manual) 30 % (20-45) Monocytes % (Manual) 5 % (1-10) Eosinophils % (Manual) 4 % (0-3) Basophils % (Manual) 0 % (0-2) Band Neutrophils 0 % (0-8) Platelet Estimate Adequate Platelet Morphology Normal Hypochromasia 1+ Anisocytosis 2+ Microcytosis 1+ Prothrombin Time 9.4 SEC (9.30-11.50) Prothromb Time International Ratio 0.9 (0.9-1.1) Activated Partial Thromboplast Time 24 SEC (23-33) Urine Color Red Urine Appearance Turbid Urine pH 6.5 (4.5-8.0) Urine Specific [place] 1.015 (1.005-1.035) Urine Protein 4+ (NEGATIVE) Urine Glucose (UA) 4+ (NEGATIVE) Urine Ketones Negative (NEGATIVE) Urine Occult Blood 4+ (NEGATIVE) Urine Nitrite Negative (NEGATIVE) Urine Bilirubin Negative (NEGATIVE) Urine Urobilinogen Normal MG/DL (0.0-1.0) Urine Leukocyte Esterase 1+ (NEGATIVE) Urine RBC Tntc /HPF (0 - 2) Urine WBC 2-4 /HPF (0 - 2) Urine Squamous Epithelial Cells Few /LPF (NONE/OCC) Urine Bacteria Few /HPF (NONE) Urine HCG, Qualitative Negative (NEGATIVE) Sodium Level 134 MMOL/L (136-145) Potassium Level 4.4 MMOL/L (3.5-5.1) Chloride Level 103 MMOL/L (98-107) Carbon Dioxide Level 25 MMOL/L (21-32) Anion Gap 6 mmol/L (5-15) Blood Urea Nitrogen 13 mg/dL (7-18) Creatinine 0.7 MG/DL (0.55-1.30) Estimat Glomerular Filtration Rate > 60 mL/min (>60) Glucose Level 239 MG/DL (74-106) Calcium Level 8.3 MG/DL (8.5-10.1) Total Bilirubin 0.2 MG/DL (0.2-1.0) Aspartate Amino Transf (AST/SGOT) 21 U/L (15-37) Alanine Aminotransferase (ALT/SGPT) 15 U/L (12-78) Alkaline Phosphatase 124 U/L (46-116) Total Protein 7.5 G/DL (6.4-8.2) Albumin 3.0 G/DL (3.4-5.0) Globulin 4.5 g/dL Albumin/Globulin Ratio 0.7 (1.0-2.7) Lipase 161 U/L (73-393) CT/MRI/US Diagnostic Results CT/MRI/US Diagnostic Results : Imaging Test Ordered: Pelvic US Impression Uterine fundal fibroid. Heterogeneous structure in cervix. Good flow to bilateral ovaries Last Vital Signs Date Time Temp Pulse Resp B/P (MAP) Pulse Ox O2 Delivery O2 Flow Rate FiO2 12/31/17 08:41 97.9 75 18 119/76 100 Room Air 97.9 Status: improved Disposition: ADMITTED INPATIENT Condition: Serious Scripts Norgestimate-Ethinyl Estradiol (ORTHO TRI-CYCLEN) 1 Each Tablet 1 EACH PO DAILY, #30 TAB Prov: Sal Bower MD 12/31/17 Referrals: NOT CHOSEN [facility]/,REFERRING (PCP) Sal Bower MD Dec 31, 2017 09:07
[2017-12-31 09:44] LABS: HEMATOCRIT 27.5 % (37.0-47.0); HEMOGLOBIN 8.4 G/DL (12.0-16.0); MEAN CORPUSCULAR VOLUME 80 FL (80-99); PLATELET COUNT 292 K/UL (150-450); RED BLOOD COUNT 3.46 M/UL (4.20-5.40); RED CELL DISTRIBUTION WIDTH 20.6 % (11.6-14.8); WHITE BLOOD COUNT 3.4 K/UL (4.8-10.8)
[2017-12-31 09:52] LABS: ANION GAP 6 mmol/L (5-15); BLOOD UREA NITROGEN 13 mg/dL (7-18); CALCIUM 8.3 MG/DL (8.5-10.1); CARBON DIOXIDE 25 MMOL/L (21-32); CHLORIDE 103 MMOL/L (98-107); CREATININE 0.7 MG/DL (0.55-1.30); POTASSIUM 4.4 MMOL/L (3.5-5.1); SODIUM 134 MMOL/L (136-145)
[2017-12-31 09:53] LABS: APPEARANCE,URINE TURBID; BILIRUBIN, URINE NEGATIVE (NEGATIVE); GLUCOSE, URINE (UA) 4+ (NEGATIVE); INR 0.9 (0.9-1.1); KETONES,URINE NEGATIVE (NEGATIVE); LEUKOCYTE ESTERASE ,URINE 1+ (NEGATIVE); NITRITE,URINE NEGATIVE (NEGATIVE); PH,URINE 6.5 (4.5-8.0); PROTEIN,URINE 4+ (NEGATIVE); UROBILINOGEN,URINE NORMAL MG/DL (0.0-1.0)
[2017-12-31 09:56] LABS: ALANINE AMINOTRANSFERASE 15 U/L (12-78); ALBUMIN/GLOBULIN RATIO 0.7 (1.0-2.7); ALKALINE PHOSPHATASE 124 U/L (46-116); ASPARTATE AMINO TRANSFERASE 21 U/L (15-37); BILIRUBIN,TOTAL 0.2 MG/DL (0.2-1.0)
[2017-12-31 10:05] LABS: COLOR,URINE RED
[2017-12-31] MEDS ORDERED: ORTHO TRI-CYCL1 EACH PO (10:30)
[2017-12-31 10:36] VITALS: BP 135/80
--- NOTE | 2017-12-31 11:59 | Diagnostic Imaging Report ---
Indication: Pelvic pain and heavy vaginal bleeding x5 days, negative urine test Technique: Transabdominal and transvaginal images Comparison: 10/12/2016 Findings: Uterus measures 8.8 cm in length by 4.7 cm AP. The endometrium measures 4 mm thick. Myometrium demonstrates a 18 mm fundal intramural fibroid. There is a small mixed echogenicity structure in the cervix which measures 18 x 9 mm, is also evident on the previous study but thought at that time to represent blood in the cervix. This is also evident on a [address] scan of 10/10/2017 demonstrated an unusual cervical structure corresponding roughly in shape and location. There are small cervical nabothian cysts. There is trace free cul-de-sac fluid. The right ovary measures 2 cm in length. The left ovary measures 1.8 cm in length. No adnexal mass demonstrated. On the transabdominal images, a compressible tubular structure is seen in the right adnexal region. This is not visible on the previous study and is not visible on the transvaginal images Impression: Unusual mixed echogenicity structure in the cervix measuring 18 x 9 mm. This been visible on multiple prior exams, previously thought to represent blood/debris within the endocervical canal, but consistent appearance over multiple exams indicates this is most likely a soft tissue abnormality. Possibly a cervical fibroid, as it does not appear to have changed significantly. Nonetheless, consider MRI with contrast for better characterization Tubular structure in the right adnexal region, visible only on transabdominal images transabdominal images. This may represent a loop of small bowel, but could also represent a hydrosalpinx Other findings as noted, including small fundal fibroid, cervical nabothian cysts, free cul-de-sac fluid. Findings discussed by phone with Dr. Bower in the emergency room at the time of interpretation
== END 2017-12-31 10:35 | disposition home or self-care (01) ==
LOC: EMR 08:58
DX: N93.8 Other specified abnormal uterine and vaginal bleeding (principal); E11.9 Type 2 diabetes mellitus without complications; I10 Essential (primary) hypertension; E03.9 Hypothyroidism, unspecified; D25.9 Leiomyoma of uterus, unspecified
CPT/HCPCS: 36415; 76830; 76856; 80053; 81003; 81025; 83690; 85007; 85025; 85610; 85730; 86850; 86900; 86901; 99285

== ENCOUNTER 2018-06-11 12:57 | Emergency (ER) | payer MEDICAID ==
[~2018-06-11] VITALS: Ht 160 cm; Wt 49.0 kg
[~2018-06-11 12:57] MED LIST changes: +ORTHO TRI-CYCL1 EACH PO
[2018-06-11 13:10] VITALS: BP 115/52
[2018-06-11] MEDS ORDERED: Sodium Chloride 500ML 500 ML IV ONE (13:15)
--- NOTE | 2018-06-11 13:40 | Emergency Room Report ---
History of Present Illness General Chief Complaint: Female Urogenital Problems Source: Patient (Nancy Doll DO) Present Illness HPI Patient presents with complaints of vaginal bleeding Denies any chest pain or shortness of breath Denies any back or flank pain she had some mild discomfort with the vaginal bleeding Patient has had multiple blood transfusions here and at other hospital She reports that she has seen one supervisor payroll however has not been told much regarding her vaginal bleeding Denies any fevers or chills denies any dysuria frequency Denies any lightheadedness or shortness of breath (Nancy Doll DO) Allergies: Coded Allergies: No Known Allergies (Verified , 09/02/07) Patient History Past Medical History: see triage record Pertinent Family History: none Now: No Reviewed Nursing Documentation: PMH: Agreed; PSxH: Agreed (Nancy Doll DO) Nursing Documentation-PMH Past Medical History: No History, Except For Hx Cardiac Problems: No - Hypothyroidism, Anemia, Uterine fibroid Hx Hypertension: Yes Hx Pacemaker: No Hx Asthma: No Hx COPD: No Hx Diabetes: Yes Hx Cancer: No Hx Gastrointestinal Problems: No Hx Dialysis: No Hx Neurological Problems: No Hx Cerebrovascular Accident: No Hx Transient Ischemic Attacks: No Hx Dementia: No Hx Alzheimer's Disease: No Hx Parkinson's Disease: No Hx Meningitis: No Hx Encephalitis: No Hx Seizures: Yes Hx Epilepsy: No Hx Multiple Sclerosis: No Hx Cerebral Palsy: No Hx Amyotrophic Lat Sclerosis: No Hx Guillian-[place] Syndrome: No Hx Paralysis: No Hx Peripheral Neuropathy: No Hx Spinal Cord Injury: No Hx Head Trauma: Yes - Fell in the shower and hit her head one day prior to admission Hx Traumatic Brain Injury: No Hx Memory Loss: No Hx Concentration Difficulty: Yes Hx Speech Problem: No Hx Tremors: No Hx Vertigo: No Hx Dizziness: Yes Hx Syncope: No Hx Headaches: Yes Hx Aphasia: No Hx Dysphasia: No Hx Numbness: No Hx Weakness: No Hx Fatigue: Yes Hx Neurologic Surgery: No Hx Brain Shunt: No (Nancy Doll DO) Review of Systems All Other Systems: negative except mentioned in HPI (Nancy Doll DO) Physical Exam Vital Signs Date Time Temp Pulse Resp B/P (MAP) Pulse Ox O2 Delivery O2 Flow Rate FiO2 06/11/18 12:59 98.0 73 19 82/48 99 Room Air 98.1 Sp02 EP Interpretation: reviewed, normal General Appearance: no apparent distress Head: normocephalic, atraumatic Eyes: bilateral eye PERRL, bilateral eye EOMI ENT: hearing grossly normal, normal pharynx Neck: supple Respiratory: lungs clear, normal breath sounds Cardiovascular #1: regular rate, rhythm, no edema Gastrointestinal: non tender, soft Genitourinary: no CVA tenderness Musculoskeletal: normal inspection Neurologic: alert, oriented x3, responsive Skin: other - Mild pallor Lymphatic: no adenopathy (Nancy Doll DO) Medical Decision Making Diagnostic Impression: Primary Impression: Anemia Additional Impression: Dysfunctional uterine bleeding ER Course Patient has had several visits to the emergency room Last visit was in December Speaking further with her with a cloth mender, patient reports that she has not followed up with her primary or supervisor payroll since that discharge Patient also reports that she had a previous attempt of seeing a supervisor payroll however there were some insurance problems Review of records reveals significant anemia in the past And therefore repeat blood work is obtained at this time (Nancy Doll DO) ER Course The patient endorsed by Dr. Hardwick. Patient was noted to have anemia after recent episode of vaginal bleeding. Patient is currently alert and oriented. The patient was consented for blood transfusion. Patient was given 2 units of packed red cells. She is given prescription for iron pills.The repeat hemoglobin was noted to be improved. The patient was advised to follow-up with [employer] for further management of dysfunctional bleeding. Patient is advised to return if any worsening condition or if any changes in status that are concerning. This report is dictated with [employer] line operator software which may occasionally lead to discrepancies related to use of this software. Labs Test 06/11/18 14:10 White Blood Count 4.2 K/UL (4.8-10.8) Red Blood Count 3.13 M/UL (4.20-5.40) Hemoglobin 6.7 G/DL (12.0-16.0) Hematocrit 22.8 % (37.0-47.0) Mean Corpuscular Volume 73 FL (80-99) Mean Corpuscular Hemoglobin 21.5 PG (27.0-31.0) Mean Corpuscular Hemoglobin Concent 29.6 G/DL (32.0-36.0) Red Cell Distribution Width 19.3 % (11.6-14.8) Platelet Count 279 K/UL (150-450) Mean Platelet Volume 6.6 FL (6.5-10.1) Neutrophils (%) (Auto) % (45.0-75.0) Lymphocytes (%) (Auto) % (20.0-45.0) Monocytes (%) (Auto) % (1.0-10.0) Eosinophils (%) (Auto) % (0.0-3.0) Basophils (%) (Auto) % (0.0-2.0) Sodium Level 141 MMOL/L (136-145) Potassium Level 4.6 MMOL/L (3.5-5.1) Chloride Level 106 MMOL/L (98-107) Carbon Dioxide Level 28 MMOL/L (21-32) Anion Gap 7 mmol/L (5-15) Blood Urea Nitrogen 17 mg/dL (7-18) Creatinine 0.7 MG/DL (0.55-1.30) Estimat Glomerular Filtration Rate > 60 mL/min (>60) Glucose Level 137 MG/DL (74-106) Calcium Level 9.2 MG/DL (8.5-10.1) Total Bilirubin 0.2 MG/DL (0.2-1.0) Aspartate Amino Transf (AST/SGOT) 9 U/L (15-37) Alanine Aminotransferase (ALT/SGPT) 15 U/L (12-78) Alkaline Phosphatase 105 U/L (46-116) Total Protein 8.1 G/DL (6.4-8.2) Albumin 3.4 G/DL (3.4-5.0) Globulin 4.7 g/dL Albumin/Globulin Ratio 0.7 (1.0-2.7) Lipase 108 U/L (73-393) (Jose Monique MD) Last Vital Signs Date Time Temp Pulse Resp B/P (MAP) Pulse Ox O2 Delivery O2 Flow Rate FiO2 06/11/18 13:10 97.5 75 12 115/52 100 Room Air 97.5 (Nancy Doll DO) Status: improved (Jose Monique MD) Disposition: HOME, SELF-CARE Condition: Stable Signed Out To: Dr monique 14:00 (Nancy Doll DO) Scripts Ferrous Sulfate* (FERROUS SULFATE*) 325 Mg Tablet 325 MG ORAL TWICE A DAY, #60 TAB 0 Refills Prov: Jose Monique MD 06/11/18 Referrals: NOT CHOSEN [facility]/,REFERRING (PCP) Nancy Doll DO Jun 11, 2018 13:40 Jose Monique MD Jun 11, 2018 15:19
[2018-06-11 14:42] LABS: HEMATOCRIT 22.8 % (37.0-47.0); MEAN CORPUSCULAR VOLUME 73 FL (80-99); PLATELET COUNT 279 K/UL (150-450); RED BLOOD COUNT 3.13 M/UL (4.20-5.40); RED CELL DISTRIBUTION WIDTH 19.3 % (11.6-14.8); WHITE BLOOD COUNT 4.2 K/UL (4.8-10.8)
[2018-06-11 14:44] LABS: HEMOGLOBIN 6.7 G/DL (12.0-16.0)
[2018-06-11 14:55] LABS: ANION GAP 7 mmol/L (5-15); BLOOD UREA NITROGEN 17 mg/dL (7-18); CALCIUM 9.2 MG/DL (8.5-10.1); CARBON DIOXIDE 28 MMOL/L (21-32); CHLORIDE 106 MMOL/L (98-107); CREATININE 0.7 MG/DL (0.55-1.30); POTASSIUM 4.6 MMOL/L (3.5-5.1); SODIUM 141 MMOL/L (136-145)
[2018-06-11 15:02] LABS: ALANINE AMINOTRANSFERASE 15 U/L (12-78); ALBUMIN 3.4 G/DL (3.4-5.0); ALBUMIN/GLOBULIN RATIO 0.7 (1.0-2.7); ALKALINE PHOSPHATASE 105 U/L (46-116); ASPARTATE AMINO TRANSFERASE 9 U/L (15-37); BILIRUBIN,TOTAL 0.2 MG/DL (0.2-1.0)
[2018-06-11 15:10] VITALS: BP 103/51
[2018-06-11 17:10] VITALS: BP 131/49
--- NOTE | 2018-06-11 17:25 | Diagnostic Imaging Report ---
EXAM: US Pelvis Complete, Transabdominal US Pelvis, Transvaginal CLINICAL HISTORY: Pain. Bleeding. TECHNIQUE: Real-time transabdominal and transvaginal pelvic ultrasound (complete) with image documentation. Transvaginal imaging was used for better evaluation of the endometrium and adnexa. COMPARISON: 12/31/2017. FINDINGS: Uterus/cervix: Uterus 9.3 x 5.5 x 4.6 cm. Endometrium 7 mm. No myometrial mass. Right ovary: Right ovary 2 x 2.6 x 0.9 cm. Normal blood flow. Left ovary: Left ovary 3.2 x 2.4 x 1.3 cm. Normal blood flow. Free fluid: Small free fluid. Bladder: Unremarkable as visualized. IMPRESSION: No ovarian torsion.
[2018-06-11 19:10] VITALS: BP 141/55
[2018-06-11] MEDS ORDERED: FERROUS SULFAT325 MG ORAL (19:31)
[2018-06-11 21:00] VITALS: BP 138/61
[2018-06-11 23:50] VITALS: BP 140/67
[2018-06-11 23:54] LABS: BASOPHILS % (AUTO) 1.2 % (0.0-2.0); HEMATOCRIT 30.3 % (37.0-47.0); HEMOGLOBIN 9.8 G/DL (12.0-16.0); LYMPHOCYTES % (AUTO) 23.4 % (20.0-45.0); MEAN CORPUSCULAR VOLUME 80 FL (80-99); MONOCYTES % (AUTO) 7.5 % (1.0-10.0); PLATELET COUNT 260 K/UL (150-450); RED CELL DISTRIBUTION WIDTH 19.1 % (11.6-14.8); WHITE BLOOD COUNT 4.1 K/UL (4.8-10.8)
[2018-06-12 00:20] VITALS: BP 140/67
== END 2018-06-12 00:20 | disposition home or self-care (01) ==
LOC: EMR 13:22
DX: D64.9 Anemia, unspecified (principal); N93.8 Other specified abnormal uterine and vaginal bleeding
CPT/HCPCS: 36415; 76830; 76856; 80053; 83690; 85007; 85025; 86850; 86900; 86901; 86920; 99284; P9016

== ENCOUNTER 2019-04-03 19:36 | Inpatient (IN) | payer MEDICAID ==
[~2019-04-03] VITALS: Ht 162.6 cm; Wt 62.1 kg
--- NOTE | 2019-04-03 19:50 | NUR ---
ED Nurse Note: patient ambulated to ed with c/o chest pain and heavy vaginal bleeding x1 day. patient ao4 nad. hypotensive. 86/53.
[2019-04-03 20:00] VITALS: BP 84/50
[2019-04-03] MEDS ORDERED: Morphine Sulfate 4mg/ml Inj (IV USE ONLY) IVP ONE (20:00)
--- NOTE | 2019-04-03 20:20 | NUR ---
ED Nurse Note: iv access established. blood collected; sent down to lab.
[2019-04-03 20:52] LABS: HEMATOCRIT 16.4 % (37.0-47.0); MEAN CORPUSCULAR VOLUME 66 FL (80-99); PLATELET COUNT 323 K/UL (150-450); RED BLOOD COUNT 2.49 M/UL (4.20-5.40); RED CELL DISTRIBUTION WIDTH 18.1 % (11.6-14.8); WHITE BLOOD COUNT 5.1 K/UL (4.8-10.8)
[2019-04-03 20:53] LABS: ANION GAP 6 mmol/L (5-15); BLOOD UREA NITROGEN 16 mg/dL (7-18); CALCIUM 8.2 MG/DL (8.5-10.1); CARBON DIOXIDE 27 MMOL/L (21-32); CHLORIDE 101 MMOL/L (98-107); CREATININE 0.9 MG/DL (0.55-1.30); POTASSIUM 4.4 MMOL/L (3.5-5.1); SODIUM 134 MMOL/L (136-145)
[2019-04-03 20:57] LABS: ALANINE AMINOTRANSFERASE 25 U/L (12-78); ALBUMIN 2.8 G/DL (3.4-5.0); ALBUMIN/GLOBULIN RATIO 0.8 (1.0-2.7); ALKALINE PHOSPHATASE 122 U/L (46-116); ASPARTATE AMINO TRANSFERASE 37 U/L (15-37); BILIRUBIN,TOTAL 0.3 MG/DL (0.2-1.0)
[2019-04-03 21:00] VITALS: BP 95/55
[2019-04-03 21:10] LABS: HEMOGLOBIN 4.6 G/DL (12.0-16.0)
--- NOTE | 2019-04-03 21:15 | Emergency Room Report ---
History of Present Illness General Chief Complaint: Chest Pain Source: Patient Present Illness HPI The patient presents with left-sided chest pain and vaginal bleeding. The pain is rated at 10/10 at this time in her chest. She feels pressure and also sharpness. She had blood transfusion for the vaginal bleeding the past. She has dyspnea on exertion and weakness. No fevers, chills, palpitations, nausea, vomiting, diarrhea, melena , dysuria, abdominal pain, depression, visual changes. Patient is diabetic. History of hypothyroidism. Admitted September 2017 with these discharge diagnoses: 1. Severe acute anemia requiring blood transfusion. 2. Bilateral pleural effusion, status post thoracentesis. 3. Diabetes mellitus type 2. 4. Hypothyroidism. 5. Abnormal liver enzymes. 6. Malnutrition. 7. Uncontrolled diabetes mellitus. Allergies: Coded Allergies: No Known Allergies (Verified , 09/02/07) Patient History Past Medical History: see triage record, old chart reviewed Social History: Denies: smoking, alcohol use, drug use Social History Narrative With family Now: No Reviewed Nursing Documentation: PMH: Agreed; PSxH: Agreed Nursing Documentation-PMH Hx Cardiac Problems: No - Hypothyroidism, Anemia, Uterine fibroid Hx Hypertension: Yes Hx Pacemaker: No Hx Asthma: No Hx COPD: No Hx Diabetes: Yes Hx Cancer: No Hx Gastrointestinal Problems: No Hx Dialysis: No Hx Neurological Problems: No Hx Cerebrovascular Accident: No Hx Transient Ischemic Attacks: No Hx Dementia: No Hx Alzheimer's Disease: No Hx Parkinson's Disease: No Hx Meningitis: No Hx Encephalitis: No Hx Seizures: Yes Hx Epilepsy: No Hx Multiple Sclerosis: No Hx Cerebral Palsy: No Hx Amyotrophic Lat Sclerosis: No Hx Guillian-Layton Syndrome: No Hx Paralysis: No Hx Peripheral Neuropathy: No Hx Spinal Cord Injury: No Hx Head Trauma: Yes - Fell in the shower and hit her head one day prior to admission Hx Traumatic Brain Injury: No Hx Memory Loss: No Hx Concentration Difficulty: Yes Hx Speech Problem: No Hx Tremors: No Hx Vertigo: No Hx Dizziness: Yes Hx Syncope: No Hx Headaches: Yes Hx Aphasia: No Hx Dysphasia: No Hx Numbness: No Hx Weakness: No Hx Fatigue: Yes Hx Neurologic Surgery: No Hx Brain Shunt: No Review of Systems All Other Systems: negative except mentioned in HPI Physical Exam Vital Signs Date Time Temp Pulse Resp B/P (MAP) Pulse Ox O2 Delivery O2 Flow Rate FiO2 04/03/19 19:44 97.9 76 16 84/50 (61) 98 Room Air Sp02 EP Interpretation: reviewed, normal General Appearance: no apparent distress, GCS 15, other - Pale Head: normocephalic Eyes: bilateral eye PERRL, bilateral eye conjunctivae pale ENT: moist mucus membranes Neck: supple Respiratory: lungs clear, normal breath sounds Cardiovascular #1: regular rate, rhythm Cardiovascular #2: 2+ radial (R) Gastrointestinal: normal inspection, normal bowel sounds, non tender, no mass, non-distended Genitourinary: deferred - For ultrasound Musculoskeletal: back normal, normal range of motion Neurologic: alert, oriented x3, grossly normal Psychiatric: mood/affect normal Skin: pallor Procedures Critical Care Time Critical Care Time Total Critical Care Time: 60 min bedside evaluation and treatment excludes procedures (EKG). Reason for critical care: Elevated troponin, profound anemia, hypotension Possible complications: hypotension, hypertension, GA, shock, arrhythmias, metabolic acidosis, end organ damage, respiratory failure. Interventions: External jugular, IV hydration, aspirin, blood transfusion Course: Patient presents with chest pain and vaginal bleeding. Evaluation reveals elevated troponin level hemoglobin. Discussion with blood bank to transfuse. Patient with mild hypotension. Correction by discussion with family. Transfusing patient. Aspirin administered. Ultrasound without fibroids. Blood infusing without difficulty. Morphine administered for chest pain. Blood sugar elevated but not needed to be treated. Consultations: nursing staff, EMS, family, blood bank, OPERATIONS TRAINER, admitting physician Performed by: Dr. Rivas Tolerated well condition = critical Medical Decision Making Diagnostic Impression: Primary Impression: Profound anemia Qualified Codes: D50.0 - Iron deficiency anemia secondary to blood loss ( chronic) Additional Impressions: Vaginal bleeding NSTEMI (non-ST elevated myocardial infarction) Diabetes Qualified Codes: E10.9 - Type 1 diabetes mellitus without complications Hypotension (arterial) Qualified Codes: I95.89 - Other hypotension; E86.1 - Hypovolemia ER Course Patient presents with chest pain and vaginal bleeding. Differential includes acute myocardial infarction, gastritis, ischemia due to anemia, noncardiac chest pain amongst others. Evaluation with EKG, pelvic ultrasound and labs. Initial treatment with IV hydration. EKG normal. Chest x-ray no infiltrates. Called with + troponin. Aspirin given. Unable to give beta-blockers or blood thinners. Called with hgb 4. Blood ordered and lab called. Glucose mildly elevated. Normal renal function. BP 80. Will transfuse STAT. Repeat EKG, no STEMI. Consideration that troponin may be related to anemia or thyroid dysfunction. U/S no fibroids. Discussed with Dr. Kmi and Dr. Tuttle. Admitted ICU. Laboratory Tests Test 04/03/19 20:20 04/03/19 21:20 White Blood Count 5.1 K/UL (4.8-10.8) Red Blood Count 2.49 M/UL (4.20-5.40) L Hemoglobin 4.6 G/DL (12.0-16.0) *L Hematocrit 16.4 % (37.0-47.0) L Mean Corpuscular Volume 66 FL (80-99) L Mean Corpuscular Hemoglobin 18.4 PG (27.0-31.0) L Mean Corpuscular Hemoglobin Concent 28.0 G/DL (32.0-36.0) L Red Cell Distribution Width 18.1 % (11.6-14.8) H Platelet Count 323 K/UL (150-450) Mean Platelet Volume 5.8 FL (6.5-10.1) L Neutrophils (%) (Auto) % (45.0-75.0) Lymphocytes (%) (Auto) % (20.0-45.0) Monocytes (%) (Auto) % (1.0-10.0) Eosinophils (%) (Auto) % (0.0-3.0) Basophils (%) (Auto) % (0.0-2.0) Differential Total Cells Counted 100 Neutrophils % (Manual) 78 % (45-75) H Lymphocytes % (Manual) 14 % (20-45) L Monocytes % (Manual) 5 % (1-10) Eosinophils % (Manual) 2 % (0-3) Basophils % (Manual) 1 % (0-2) Band Neutrophils 0 % (0-8) Platelet Estimate Adequate Platelet Morphology Normal Hypochromasia 3+ Anisocytosis 3+ Microcytosis 3+ Prothrombin Time 10.3 SEC (9.30-11.50) Prothrombin Time INR 1.0 (0.9-1.1) PTT 25 SEC (23-33) Sodium Level 134 MMOL/L (136-145) L Potassium Level 4.4 MMOL/L (3.5-5.1) Chloride Level 101 MMOL/L (98-107) Carbon Dioxide Level 27 MMOL/L (21-32) Anion Gap 6 mmol/L (5-15) Blood Urea Nitrogen 16 mg/dL (7-18) Creatinine 0.9 MG/DL (0.55-1.30) Estimate Glomerular Filtration Rate > 60 mL/min (>60) Glucose Level 257 MG/DL (74-106) H Calcium Level 8.2 MG/DL (8.5-10.1) L Total Bilirubin 0.3 MG/DL (0.2-1.0) Aspartate Amino Transferase (AST) 37 U/L (15-37) Alanine Aminotransferase (ALT) 25 U/L (12-78) Alkaline Phosphatase 122 U/L (46-116) H Troponin I 4.247 ng/mL (0.000-0.056) Total Protein 6.5 G/DL (6.4-8.2) Albumin 2.8 G/DL (3.4-5.0) L Globulin 3.7 g/dL Albumin/Globulin Ratio 0.8 (1.0-2.7) L Lipase 77 U/L (73-393) Urine Color Yellow Urine Appearance Clear Urine pH 5 (4.5-8.0) Urine Specific [place] 1.015 (1.005-1.035) Urine Protein 2+ (NEGATIVE) H Urine Glucose (UA) Negative (NEGATIVE) Urine Ketones 1+ (NEGATIVE) H Urine Blood 1+ (NEGATIVE) H Urine Nitrite Negative (NEGATIVE) Urine Bilirubin Negative (NEGATIVE) Urine Urobilinogen Normal MG/DL (0.0-1.0) Urine Leukocyte Esterase 1+ (NEGATIVE) H Urine RBC 0-2 /HPF (0 - 2) Urine WBC 2-4 /HPF (0 - 2) Urine Squamous Epithelial Cells Few /LPF (NONE/OCC) Urine Bacteria Few /HPF (NONE) Urine HCG, Qualitative Negative (NEGATIVE) EKG Diagnostic Results Rate: normal Rhythm: NSR ST Segments: no acute changes - lad Rhythm Strip Diag. Results EP Interpretation: yes Rhythm: NSR, no PVC's, no ectopy CT/MRI/US Diagnostic Results CT/MRI/US Diagnostic Results : Imaging Test Ordered: Pelvic ultrasound Impression No fibroids Last Vital Signs Date Time Temp Pulse Resp B/P (MAP) Pulse Ox O2 Delivery O2 Flow Rate FiO2 04/04/19 00:00 74 04/04/19 00:00 2.0 04/03/19 23:05 Nasal Cannula 04/03/19 19:44 97.9 16 84/50 (61) 98 Status: improved Disposition: ADMITTED INPATIENT Condition: Critical Referrals: NOT CHOSEN IPA/,REFERRING (PCP) Wade Rivas MD Apr 03, 2019 21:15
--- NOTE | 2019-04-03 21:20 | NUR ---
ED Nurse Note: urine and mrsa vre cre swabs collected; sent down to lab.
[2019-04-03 21:57] LABS: APPEARANCE,URINE CLEAR; BILIRUBIN, URINE NEGATIVE (NEGATIVE); GLUCOSE, URINE (UA) NEGATIVE (NEGATIVE); KETONES,URINE 1+ (NEGATIVE); LEUKOCYTE ESTERASE ,URINE 1+ (NEGATIVE); NITRITE,URINE NEGATIVE (NEGATIVE); PH,URINE 5 (4.5-8.0); PROTEIN,URINE 2+ (NEGATIVE); UROBILINOGEN,URINE NORMAL MG/DL (0.0-1.0)
[2019-04-03 21:58] LABS: COLOR,URINE YELLOW
[2019-04-03] MEDS ORDERED: Nitroglycerin Subl 0.4mg tab SL PRN (22:15)
[2019-04-03 22:30] VITALS: BP 86/53
[2019-04-03] MEDS ORDERED: Morphine Sulfate 2mg/ml Inj(IV/IM USE ONLY) IVP ONE (22:45)
[2019-04-03 23:00] VITALS: BP 117/65
--- NOTE | 2019-04-03 23:00 | NUR ---
TRANSFER TO FLOOR: Patient transferred to ICU as ordered, per MD IDALIA. Report given to MARLYS KEENAN. PATIENT IN STABLE CONDITION. BELONGINGS LIST COMPLETED WITH RECEIVING RN.
--- NOTE | 2019-04-03 23:00 | NUR ---
NURSE NOTES: Patient received from BULB SORTER. Patient is AAOX4 mostly Hungarian speaking. Patient comes in with R EJ 18 infusing 1 PRBC. Patient able to void. Patient HR is 80SR 117/75, 97.7F , Spo2 98% whith 2 L O2. No acute distress at this time. Will continue to monitor.
[2019-04-03 23:30] VITALS: BP 122/73
[2019-04-04] VITALS (30 sets, daily range): BP systolic 118–142; BP diastolic 75–92
--- NOTE | 2019-04-04 | NUR ---
NURSE NOTES: Glucose 273, Levemir 10 units given. 1/2 NS hung at 75ml/hr.
[2019-04-04] MEDS: Levemir Flexpen SUBQ SCH ×2 (00:15→20:22)
--- NOTE | 2019-04-04 00:28 | NUR ---
NURSE NOTES: 2nd unit of PRBC started. No rxt observed with 1st PRBC.
--- NOTE | 2019-04-04 02:00 | NUR ---
NURSE NOTES: Several attempts made by staff to insert peripheral IV. Patients is a hard stick. Will try again later. 2nd PRBC infused. No rxt observed. VSS. Will continue to monitor.
--- NOTE | 2019-04-04 04:00 | NUR ---
NURSE NOTES: Maintenance fluids ongoing. Patient remains calm and content, no acute distress at this time. Patient able to self reposition. Remains AAOX4. NC at 2L Spo2 98%, Blood drawn and sent to lab.
[2019-04-04] MEDS: Levothyroxine 125mcg tab ORAL SCH (05:44)
[2019-04-04] MEDS: NovoLOG Insulin Flexpen SUBQ SCH ×4 (05:46→20:23)
[2019-04-04 05:54] LABS: BASOPHILS % (AUTO) 0.9 % (0.0-2.0); EOSINOPHILS % (AUTO) 1.8 % (0.0-3.0); HEMATOCRIT 30.6 % (37.0-47.0); HEMOGLOBIN 9.1 G/DL (12.0-16.0); LYMPHOCYTES % (AUTO) 21.6 % (20.0-45.0); MEAN CORPUSCULAR VOLUME 76 FL (80-99); MONOCYTES % (AUTO) 5.7 % (1.0-10.0); NEUTROPHILS % (AUTO) 69.9 % (45.0-75.0); PLATELET COUNT 293 K/UL (150-450); RED CELL DISTRIBUTION WIDTH 23.9 % (11.6-14.8); WHITE BLOOD COUNT 5.6 K/UL (4.8-10.8)
--- NOTE | 2019-04-04 06:00 | NUR ---
NURSE NOTES: Glucose 237, coverage given NAD at this time VSS, no fever 0/10 pain scale.
[2019-04-04 06:14] LABS: ANION GAP 8 mmol/L (5-15); BLOOD UREA NITROGEN 15 mg/dL (7-18); CALCIUM 7.6 MG/DL (8.5-10.1); CARBON DIOXIDE 23 MMOL/L (21-32); CHLORIDE 107 MMOL/L (98-107); CREATININE 0.8 MG/DL (0.55-1.30); SODIUM 138 MMOL/L (136-145)
--- NOTE | 2019-04-04 07:15 | NUR ---
NURSE NOTES: RECEIVED PATIENT FROM Ashok JOLLY RN. PATIENT IS SEEN IN LYING IN BED ASLEEP. SINUS RHYTHM ON THE MONITOR. ON 2L NC. NO SIGNS OF DISTRESS OF THE MOMENT. IV ON R EJ G20 WITH IVF RUNNING 1/2 NS AT 75ML/HR. CALL LIGHT WITHIN REACH. BED AT LOWEST POSITION. SIDE RAILS UP. WILL CONTINUE TO MONITOR.
--- NOTE | 2019-04-04 07:48 | NUR ---
NURSE NOTES: SEEN AND EXAMINED BY DR DUKES. DR BROWN MADE AWARE OF TROPONIN LEVEL AND PT'S C/O OF CP. AWAITING FOR CALL BACK. WILL CONTINUE TO MONITOR.
[2019-04-04] MEDS: Docusate 100mg cap ORAL SCH ×2 (08:10→20:20)
[2019-04-04] MEDS ORDERED: Aspirin Baby 81mg ORAL SCH (09:00)
--- NOTE | 2019-04-04 09:00 | History and Physical Report ---
DATE OF ADMISSION: 04/03/2019 REASON FOR ADMISSION: 1. Chest pain. 2. Severe anemia. 3. Elevated troponin. HISTORY OF PRESENT ILLNESS: The patient is a 43-year-old female who presented to the emergency room overnight complaining of left-sided chest pain and vaginal bleeding. The patient had a hemoglobin of 4.6. She had previous admissions for severe anemia, receiving blood transfusion. She says that her chest pain had been mainly left-sided and sharp. No nausea, vomiting, diarrhea. No shortness of breath. The patient does have a history of hypothyroidism, diabetes. PAST MEDICAL HISTORY: 1. Diabetes. 2. Hypothyroidism. 3. Abnormal LFTs. 4. Malnutrition. 5. Severe anemia. 6. Bilateral pleural effusions. ALLERGIES: No known drug allergies. PAST SURGICAL HISTORY: Thoracentesis. SOCIAL HISTORY: No tobacco, alcohol, illicit drug use. FAMILY HISTORY: Positive for hypertension and diabetes. REVIEW OF SYSTEMS: NEUROLOGIC: The patient denies headache, change in vision, syncope, presyncopal episodes. CARDIOVASCULAR: She was having chest pressure and pain. No palpitations. PULMONARY: No difficulty breathing, productive cough, sputum. GASTROINTESTINAL/GENITOURINARY: No change in urinary or bowel habits. No nausea, vomiting, diarrhea. ENDOCRINOLOGY: No night sweats, fevers, chills. MUSCULOSKELETAL: The patient feeling tired and fatigue. PHYSICAL EXAMINATION: VITAL SIGNS: Blood pressure 133/89, 98% oxygen saturation on room air, respiratory rate 14, pulse 63, temperature 98.5. GENERAL: The patient awake, alert, not in distress. HEENT: Extraocular muscles intact. No lymphadenopathy. Oropharyngeal mucosa clear and dry. CARDIOVASCULAR: S1, S2. No rubs or gallops. PULMONARY: Clear to auscultation bilaterally. No rales, rhonchi, or wheezes. ABDOMINAL: Soft and nontender. EXTREMITIES: No edema. LABORATORY DATA: Labs dated 04/04/2019, white cell count 5.6, hemoglobin 9.1, platelet count 293. Sodium 138, potassium 5, BUN 15, creatinine 0.8. Troponin 5.79. TSH 38.81. ASSESSMENT AND PLAN: 1. Severe anemia with vaginal bleeding. The patient received blood transfusion and hemoglobin over 9. HAND CLIPPER consult has been placed. 2. Chest pain with elevated troponin, acute coronary syndrome. At this time, we will continue aspirin, beta-alissa, and Cardiology has been consulted. 3. Severe hypothyroidism. We will continue her Synthroid. 4. Hypertension. Adjust medications as deemed appropriate. Shane Pang MD DR: ASHA JOB#: [id number] CC:
--- NOTE | 2019-04-04 09:53 | Diagnostic Imaging Report ---
Indication: Pelvic pain. Negative test, vaginal bleeding x5 days Technique: Transabdominal and transvaginal images. Doppler interrogation of the ovaries Comparison: 06/11/2018 Findings: Uterus measures 9.5 cm in length by 5.3 cm AP. Small amount of free fluid is seen in the pelvic cul-de-sac. The myometrium is somewhat heterogeneous without discrete abnormality. The endometrium measures up to 15 mm thick. The right ovary measures 2.6 cm length. Left ovary measures 3.2 cm length. No adnexal mass. Normal ovarian blood flow on Doppler imaging Impression: No definite acute abnormality Nonspecific myometrial heterogeneity 15 mm thick endometrium Free cul-de-sac fluid, most likely physiologic This agrees with the preliminary interpretation provided overnight by [facility] [employer] teleradiology service.
--- NOTE | 2019-04-04 10:15 | NUR ---
NURSE NOTES: DR BROWN MADE AWARE OF THE EKG RESULT. ON-GOING 2D ECHO. PATIENT STILL C/O OF PAIN, PAIN SCALE OF 4. STILL ON O2 AT 2L. NO SIGNS OF DISTRESS. WILL CONTINUE TO MONITOR.
[2019-04-04 10:20] LABS: % IRON SATURATION 4 % (15-50); IRON 12 ug/dL (50-175); TOTAL IRON BINDING CAPACITY 279 ug/dL (250-450)
--- NOTE | 2019-04-04 11:50 | Diagnostic Imaging Report ---
Indication: Chest pain Technique: One view of the chest Comparison: 10/12/2017 Findings: The heart is upper limits normal in size. The lungs and pleural spaces are clear. Findings are unchanged Impression: No acute process
--- NOTE | 2019-04-04 12:09 | NUR ---
NURSE NOTES: around 1130, BS NOTED TO BE LOW. ADVISED TO DRINK ORANGE JUICE AND EAT HER BREAKFAST TRAY. RECHECKED AFTER 30MINS. BS STILL NOTED TO BE LOW. D50/50 WAS GIVEN. VSS. PATIENT IS ALERT, AWAKE. NO SIGNS OF DISTRESS OF THE MOMENT. WILL CONTINUE TO MONITOR.
--- NOTE | 2019-04-04 12:15 | Consultation ---
History of Present Illness General Date patient seen: Apr 04, 2019 Time patient seen: 12:07 Chief Complaint: Chest Pain Present Illness HPI The patient is a 43-year-old female who presented to the emergency room overnight complaining of left-sided chest pain and vaginal bleeding. The patient had a hemoglobin of 4.6. She had previous admissions for severe anemia, receiving blood transfusion. She says that her chest pain had been mainly left-sided and sharp. No nausea, vomiting, diarrhea. No shortness of breath. The patient does have a history of hypothyroidism, diabetes. Her initial troponin was elevated. Her tsh is elevated with low T3/4, iron levels also low. Patient was anemic, s/p 2 units pRBCS EKG normal with no ischemia. No previous cardiac history. Allergies: Coded Allergies: No Known Allergies (Verified , 09/02/07) Medication History Scheduled Atorvastatin Calcium* (Lipitor*), 10 MG ORAL QHS, (Reported) Ferrous Sulfate* (Ferrous Sulfate*), 325 MG ORAL TWICE A DAY Insulin Glargine (Lantus), 0 SUBQ BEDTIME, (Reported) Levothyroxine Sodium* (Levothyroxine Sodium*), 125 MCG ORAL DAILY@0630 Norgestimate-Ethinyl Estradiol (Ortho Tri-Cyclen), 1 EACH PO DAILY Miscellaneous Medications Insulin Aspart* (Novolog*), 0 SUBQ, (Reported) Patient History Healthcare decision maker Resuscitation status Full Code Advanced Directive on File No Review of Systems Constitutional: Reports: no symptoms Eye: Reports: no symptoms ENT: Reports: no symptoms Respiratory: Reports: no symptoms Cardiovascular: Reports: chest pain Gastrointestinal: Reports: no symptoms Genitourinary: Reports: vag bleed/dc Musculoskeletal: Reports: no symptoms Skin: Reports: no symptoms Psychiatric: Reports: no symptoms Neurological: Reports: no symptoms Endocrine: Reports: no symptoms Hematologic/Lymphatic: Reports: no symptoms Physical Exam General Appearance: alert Lines, tubes and drains: peripheral HEENT: normocephalic, atraumatic, anicteric, mucous membranes moist, PERRL, EOMI, pharynx normal, no JVD Neck: non-tender, normal alignment, supple, normal inspection Respiratory/Chest: chest wall non-tender, lungs clear, normal breath sounds, no respiratory distress, no accessory muscle use Cardiovascular/Chest: normal peripheral pulses, normal rate, regular rhythm Abdomen: normal bowel sounds, non tender Extremities: normal range of motion, non-tender, normal inspection, no calf tenderness, normal capillary refill Skin Exam: normal pigmentation, warm/dry Neurologic: binding cutter II-XII grossly normal, no motor/sensory deficits Last 24 Hour Vital Signs Date Time Temp Pulse Resp B/P (MAP) Pulse Ox O2 Delivery O2 Flow Rate FiO2 04/04/19 11:00 78 16 142/82 (102) 100 04/04/19 10:00 67 12 124/81 (95) 100 04/04/19 09:00 65 13 136/78 (97) 99 04/04/19 08:00 Nasal Cannula 2.0 04/04/19 08:00 67 04/04/19 08:00 96.7 65 13 128/83 (98) 100 04/04/19 07:00 63 14 133/89 (104) 98 04/04/19 06:00 67 11 127/87 (100) 97 04/04/19 05:30 65 12 126/91 (103) 97 04/04/19 05:00 65 11 127/90 (102) 97 04/04/19 04:30 70 19 134/84 (101) 94 04/04/19 04:00 Nasal Cannula 2.0 04/04/19 04:00 62 04/04/19 04:00 98.5 62 11 123/83 (96) 97 04/04/19 04:00 2.0 04/04/19 03:30 62 11 123/79 (94) 98 04/04/19 03:00 64 14 127/92 (104) 99 04/04/19 02:30 64 13 125/83 (97) 95 04/04/19 02:00 70 20 135/82 (99) 95 04/04/19 01:30 71 18 132/83 (99) 100 04/04/19 01:00 63 12 121/77 (92) 89 04/04/19 00:30 65 12 118/83 (95) 91 04/04/19 00:00 97.7 66 10 119/85 (96) 94 04/04/19 00:00 74 04/04/19 00:00 2.0 04/03/19 23:30 66 15 122/73 (89) 96 04/03/19 23:05 Nasal Cannula 2.0 04/03/19 23:00 97.9 72 16 86/53 98 Nasal Cannula 2.0 04/03/19 23:00 Nasal Cannula 2.0 04/03/19 23:00 11 117/65 (82) 100 04/03/19 22:30 97.9 72 16 86/53 98 Room Air 04/03/19 21:00 97.9 73 16 95/55 98 Room Air 04/03/19 20:00 76 16 Room Air 04/03/19 20:00 97.9 68 16 84/50 98 Room Air 04/03/19 19:44 97.9 76 16 84/50 (61) 98 Room Air Intake and Output 04/03/19 04/04/19 19:00 07:00 Intake Total 650 ml Balance 650 ml Intake Oral 50 ml IV Total 600 ml # Voids 1 Laboratory Tests Test 04/03/19 20:20 04/03/19 21:20 04/04/19 04:48 04/04/19 09:33 White Blood Count 5.1 K/UL (4.8-10.8) 5.6 K/UL (4.8-10.8) Red Blood Count 2.49 M/UL (4.20-5.40) L 4.00 M/UL (4.20-5.40) L Hemoglobin 4.6 G/DL (12.0-16.0) *L 9.1 G/DL (12.0-16.0) #L Hematocrit 16.4 % (37.0-47.0) L 30.6 % (37.0-47.0) #L Mean Corpuscular Volume 66 FL (80-99) L 76 FL (80-99) #L Mean Corpuscular Hemoglobin 18.4 PG (27.0-31.0) L 22.7 PG (27.0-31.0) L Mean Corpuscular Hemoglobin Concent 28.0 G/DL (32.0-36.0) L 29.7 G/DL (32.0-36.0) L Red Cell Distribution Width 18.1 % (11.6-14.8) H 23.9 % (11.6-14.8) H Platelet Count 323 K/UL (150-450) 293 K/UL (150-450) Mean Platelet Volume 5.8 FL (6.5-10.1) L 5.6 FL (6.5-10.1) L Neutrophils (%) (Auto) % (45.0-75.0) 69.9 % (45.0-75.0) Lymphocytes (%) (Auto) % (20.0-45.0) 21.6 % (20.0-45.0) Monocytes (%) (Auto) % (1.0-10.0) 5.7 % (1.0-10.0) Eosinophils (%) (Auto) % (0.0-3.0) 1.8 % (0.0-3.0) Basophils (%) (Auto) % (0.0-2.0) 0.9 % (0.0-2.0) Differential Total Cells Counted 100 Neutrophils % (Manual) 78 % (45-75) H Lymphocytes % (Manual) 14 % (20-45) L Monocytes % (Manual) 5 % (1-10) Eosinophils % (Manual) 2 % (0-3) Basophils % (Manual) 1 % (0-2) Band Neutrophils 0 % (0-8) Platelet Estimate Adequate Platelet Morphology Normal Hypochromasia 3+ Anisocytosis 3+ Microcytosis 3+ Prothrombin Time 10.3 SEC (9.30-11.50) Prothromb Time International Ratio 1.0 (0.9-1.1) Activated Partial Thromboplast Time 25 SEC (23-33) Sodium Level 134 MMOL/L (136-145) L 138 MMOL/L (136-145) Potassium Level 4.4 MMOL/L (3.5-5.1) 5.0 MMOL/L (3.5-5.1) Chloride Level 101 MMOL/L (98-107) 107 MMOL/L (98-107) Carbon Dioxide Level 27 MMOL/L (21-32) 23 MMOL/L (21-32) Anion Gap 6 mmol/L (5-15) 8 mmol/L (5-15) Blood Urea Nitrogen 16 mg/dL (7-18) 15 mg/dL (7-18) Creatinine 0.9 MG/DL (0.55-1.30) 0.8 MG/DL (0.55-1.30) Estimat Glomerular Filtration Rate > 60 mL/min (>60) > 60 mL/min (>60) Glucose Level 257 MG/DL (74-106) H 239 MG/DL (74-106) H Calcium Level 8.2 MG/DL (8.5-10.1) L 7.6 MG/DL (8.5-10.1) L Total Bilirubin 0.3 MG/DL (0.2-1.0) Aspartate Amino Transf (AST/SGOT) 37 U/L (15-37) Alanine Aminotransferase (ALT/SGPT) 25 U/L (12-78) Alkaline Phosphatase 122 U/L (46-116) H Troponin I 4.247 ng/mL (0.000-0.056) 5.797 ng/mL (0.000-0.056) Total Protein 6.5 G/DL (6.4-8.2) Albumin 2.8 G/DL (3.4-5.0) L Globulin 3.7 g/dL Albumin/Globulin Ratio 0.8 (1.0-2.7) L Lipase 77 U/L (73-393) Thyroid Stimulating Hormone (TSH) 38.881 uiU/mL (0.358-3.740) Urine Color Yellow Urine Appearance Clear Urine pH 5 (4.5-8.0) Urine Specific [place] 1.015 (1.005-1.035) Urine Protein 2+ (NEGATIVE) H Urine Glucose (UA) Negative (NEGATIVE) Urine Ketones 1+ (NEGATIVE) H Urine Blood 1+ (NEGATIVE) H Urine Nitrite Negative (NEGATIVE) Urine Bilirubin Negative (NEGATIVE) Urine Urobilinogen Normal MG/DL (0.0-1.0) Urine Leukocyte Esterase 1+ (NEGATIVE) H Urine RBC 0-2 /HPF (0 - 2) Urine WBC 2-4 /HPF (0 - 2) Urine Squamous Epithelial Cells Few /LPF (NONE/OCC) Urine Bacteria Few /HPF (NONE) Urine HCG, Qualitative Negative (NEGATIVE) Free Thyroxine 0.56 NG/DL (0.76-1.46) L Free Triiodothyronine 0.7 pg/mL (2.3-4.2) L Iron Level 12 ug/dL (50-175) L Total Iron Binding Capacity 279 ug/dL (250-450) Percent Iron Saturation 4 % (15-50) L Unsaturated Iron Binding 267 ug/dL (112-346) Triiodothyonine (T3) Pending Triiodothyronine (T3) Uptake Pending Height (Feet): 5 Height (Inches): 4.00 Weight (Pounds): 120 Medications Current Medications Medications (Trade) Dose Ordered Sig/Alycia Route PRN Reason Start Time Stop Time Status Last Admin Dose Admin Acetaminophen (Tylenol) 650 mg Q4H PRN ORAL Mild Pain (Pain Scale 1-3) 04/03/19 22:15 05/03/19 22:14 04/04/19 08:10 Aspirin (ASA) 81 mg DAILY ORAL 04/04/19 09:00 05/04/19 08:59 04/04/19 08:10 Atorvastatin Calcium (Lipitor) 10 mg QHS ORAL 04/04/19 21:00 05/04/19 20:59 Dextrose (Dextrose 50%) 25 ml Q30M PRN IV Hypoglycemia 04/03/19 22:15 05/03/19 22:14 Dextrose (Dextrose 50%) 50 ml Q30M PRN IV Hypoglycemia 04/03/19 22:15 05/03/19 22:14 Diphenhydramine HCl (Benadryl) 25 mg Q6H PRN ORAL Itching/Pruritis 04/03/19 22:15 05/03/19 22:14 Docusate Sodium (Colace) 100 mg EVERY 12 HOURS ORAL 04/04/19 09:00 05/04/19 08:59 04/04/19 08:10 Insulin Aspart (NovoLOG) BEFORE MEALS AND HS SUBQ 04/04/19 06:30 05/04/19 06:29 04/04/19 05:46 Insulin Detemir (Levemir) 10 units Q24H SUBQ 04/03/19 22:15 05/03/19 22:14 04/04/19 00:15 Levothyroxine Sodium (Synthroid) 125 mcg DAILY@0630 ORAL 04/04/19 06:30 05/04/19 06:29 04/04/19 05:44 Nitroglycerin (Ntg) 0.4 mg Q5M PRN SL Prn Chest Pain 04/03/19 22:15 05/03/19 22:14 Ondansetron HCl (Zofran) 4 mg Q6H PRN IVP Nausea & Vomiting 04/03/19 22:15 05/03/19 22:14 04/04/19 01:34 Pantoprazole (Protonix) 40 mg DAILY ORAL 04/04/19 09:00 05/04/19 08:59 04/04/19 08:11 Sodium Chloride 1,000 ml @ 75 mls/hr [id number] IV 04/03/19 23:01 05/03/19 23:00 04/03/19 23:00 Assessment/Plan Status: stable Assessment/Plan: Assessment Chest pain elevated troponin hypothyroidism Anemia vaginal bleeding, dysfunctional uterine bleeding Hypertension Plan: Serial EKG/Troponin, EKG with no ischemia Pre test probability low for obstructive coronary disease. Check ESR/CRP for pericarditis Echocardiogram to evaluate LV function NSTEMI likely from anemia, HTN, hypothyroidism Endocrine consult for thyroid replacement Keep HgB >7 Hematology consult to evaluate autoimmune causes of anemia, peripheral smear, taylor etc. Hold aspirin/heparin in setting of vaginal bleeding [employer] consult for exam/hysteroscopy - start OCP, consider hysterectomy if no plans for children Wade Hirsch MD Apr 04, 2019 12:15
[2019-04-04 12:42] LABS: CHOLESTEROL 108 MG/DL (< 200); HDL CHOLESTEROL 36 MG/DL (40-60); TRIGLYCERIDES 76 MG/DL (30-150)
--- NOTE | 2019-04-04 13:05 | Cardiology Report ---
APPROVED REPORT EXAM: Two-dimensional and M-mode echocardiogram with Doppler and color Doppler. INDICATION LV FUNCTION M-Mode DIMENSIONS IVSd1.0 (0.7-1.1cm)Left Atrium (MM)4.0 (1.6-4.0cm) LVDd5.5 (3.5-5.6cm)Aortic Root2.3 (2.0-3.7cm) PWd1.1 (0.7-1.1cm)Aortic Cusp Exc.1.2 (1.5-2.0cm) IVSs1.2 cm LVDs4.4 (2.5-4.0cm) PWs1.3 cm Mild left ventricular enlargement . akinetic but not thinned posterior wall and inferor wall andinfeor lateral fitch, other wall seem to be functioning adequately Left ventricular ejection fraction estimated to be 45-50%. No evidence of left ventricular hypertrophy. Small posterior pericardial effusion. Pleural effusion present . All other cardiac chamber sizes are within normal limits. Focal aortic valve sclerosis with adequate cusp excursion. Thickened mitral valve leaflets with normal excursion. Mitral annulus and aortic root calcification. Pulmonic valve not well visualized. Normal tricuspid valve structure. IVC at normal size with physiologic collapse. A color flow and spectral Doppler study was performed and revealed: No aortic insufficiency. Moderate to severe mitral regurgitation. Mitral inflow indicates normal left ventricular diastolic function. Mild tricuspid regurgitation. Tricuspid systolic velocities suggests peak right ventricular systolic pressure of 52 mmHg,consiastent with moderate pulmonary HTN .
--- NOTE | 2019-04-04 13:08 | Cardiology Report ---
APPROVED REPORT EKG Measurement Heart [id number] NC 130P37 [id number] Sinus bradycardia Low voltage QRS Nonspecific ST and T wave abnormality Abnormal ECG
--- NOTE | 2019-04-04 13:10 | Cardiology Report ---
APPROVED REPORT EKG Measurement Heart [id number] GA 134P55 [id number] Normal sinus rhythm Left axis deviation Nonspecific ST and T wave abnormality Abnormal ECG
--- NOTE | 2019-04-04 13:54 | NUR ---
CASE MANAGEMENT: INITIAL REVIEW 43 YO F PRESENTED TO OUR ED FROM HOME CC: CP AND VAGINAL BLEEDING PMHx: DM. HYPOTHYROIDISM. ANEMIA. UTERINE FIBROID. SI:CP. ANEMIA. NSTEMI>> POSS FROM ANEMIA. S/P 2 UNITS PRBCs T 97.9 HR 76 RR 16 B/P 84/50 SATS 98% ON RA HGB 4.6 HCT 16.4 NA 134 GLU 257 CA 8.2 ALP 122 TROPONIN 4.247 TSH 38.881 IS: ZOFRAN IV X1 MORPHINE IV X1 NS BOLUS X2 US TRANSVAGINAL Impression: No definite acute abnormality CXR (-) 2D ECHO (EF 45-50%) PATIENT ADMITTED TO ICU 04/03/2019 @ 2042 DCP: PATIENT TO BE DISCHARGED TO APPROPRIATE LOCATION ONCE MEDICALLY CLEARED. PLAN OF CARE: CAT SWAMPER CONSULT Addendum: 04/04/19 at 1717 by Pauline Molina CM INTERQUAL MET
--- NOTE | 2019-04-04 14:15 | NUR ---
NURSE NOTES: PATIENT IS SEEN LYING IN BED, ASLEEP. NO SIGNS OF DISTRESS. DENIES ANY PAIN OF THE MOMENT. WILL CONTINUE TO MONITOR.
[2019-04-04] MEDS ORDERED: NS 275ml ONE (16:45)
--- NOTE | 2019-04-04 16:48 | NUR ---
NURSE NOTES: BS CHECKED. NO C/O OF PAIN. WILL CONTINUE TO MONITOR.
--- NOTE | 2019-04-04 17:10 | NUR ---
NURSE NOTES: CALLED AND LEFT A MESSAGE TO DR FRANZ' OFFICE RE THE CONSULT. AWAITING FOR CALL BACK. WILL CONTINUE TO MONITOR.
--- NOTE | 2019-04-04 17:22 | NUR ---
NURSE NOTES: SPOKE WITH DR LEARY WITH REGARDS TO THE CONSULTATION. TO SEE THE PATIENT IN AM. FOR PELVIC US. WILL CONTINUE TO MONITOR.
--- NOTE | 2019-04-04 18:26 | NUR ---
NURSE NOTES: PATIENT VOIDED 2X IN BEDSIDE COMMODE. ON-GOING US.
--- NOTE | 2019-04-04 19:03 | NUR ---
HAND-OFF: Report given to Ashok Augustin RN.
--- NOTE | 2019-04-04 19:05 | Coder Physician Query ---
Clarification is required for compliance, coding accuracy, and to reflect severity of illness for this patient Dear Dr. Shane Pang Date: CDS Name: Kit 43-year-old female who presented to the emergency room overnight complaining of left-sided chest pain and vaginal bleeding. The patient had a hemoglobin of 4.6. . Severe anemia with vaginal bleeding. The patient received blood transfusion and hemoglobin over 9. Rx: x2 PRBC transfused Please clarify the specific type of anemia below: Acuity [x]Acute []Acute on Chronic []Chronic Etiology [] Blood loss [] Iron deficiency [] Anemia of chronic disease [] Unable to determine [] Other: Present on Admission: [] Yes [] No [] Clinically Undetermined Physician signature Date Please also document in your Progress Notes and/or Discharge Summary and indicate if the condition was present on admission. PEPE
--- NOTE | 2019-04-04 19:30 | NUR ---
NURSE NOTES: Patient received from Rosy FRANKEL. Patient is awake oriented to place, person, time and date. Mostly Croatian speaking. Patient has R EJ 20G with 1/2 NS at 75ml/hr. Patient is ambulatory with assistance. NAD at this time. Will continue to monitor.
--- NOTE | 2019-04-04 21:00 | NUR ---
NURSE NOTES: Glucose 149, coverage given. No states no pain at this time. Patient was able to get up with assistance and walk and stretch.
--- NOTE | 2019-04-04 22:00 | NUR ---
NURSE NOTES: Patient sleeping at this time. Vitals has remained stable, HR is NSR. No acute distress at this time. Remains on 2L NC, saturating 98%. Refreshments at bedside for oral gratifications
[2019-04-05] VITALS (23 sets, daily range): BP systolic 129–149; BP diastolic 75–95
--- NOTE | 2019-04-05 | NUR ---
NURSE NOTES: Patient sleeping VS are stable NAD at this time Maintenance fluids ongoing IVs remain intact No Chest pain
--- NOTE | 2019-04-05 02:00 | NUR ---
NURSE NOTES: Patient got up and went to use bathroom 1 X void/ light yellow urine ambulates with minimal assistance does not report any discomfort at this time Refreshments at bedside for oral gratification
--- NOTE | 2019-04-05 04:00 | NUR ---
NURSE NOTES: Patient remains asleep Vitals have remained stable HR 69 NSR, Spo2 100%, 2L NC 136/86 No respiratory discomfort/distress
[2019-04-05] MEDS: NovoLOG Insulin Flexpen SUBQ SCH ×4 (05:59→20:42)
[2019-04-05] MEDS: Levothyroxine 125mcg tab ORAL SCH (05:59)
--- NOTE | 2019-04-05 06:00 | NUR ---
NURSE NOTES: Accucheck was 53 Gave 3 cups of orange juice Patient remains awake and oriented Vitals remain stable Patient got up and ambulated with minimal assistance earlier to void
--- NOTE | 2019-04-05 06:30 | NUR ---
NURSE NOTES: rechecked glucose, BS now is 90
[2019-04-05 06:37] LABS: BASOPHILS % (AUTO) 0.8 % (0.0-2.0); EOSINOPHILS % (AUTO) 4.1 % (0.0-3.0); HEMATOCRIT 29.4 % (37.0-47.0); MEAN CORPUSCULAR VOLUME 75 FL (80-99); MONOCYTES % (AUTO) 2.7 % (1.0-10.0); NEUTROPHILS % (AUTO) 68.4 % (45.0-75.0); PLATELET COUNT 312 K/UL (150-450); RED BLOOD COUNT 3.95 M/UL (4.20-5.40); RED CELL DISTRIBUTION WIDTH 23.2 % (11.6-14.8); WHITE BLOOD COUNT 5.4 K/UL (4.8-10.8)
[2019-04-05 06:55] LABS: ANION GAP 6 mmol/L (5-15); BLOOD UREA NITROGEN 8 mg/dL (7-18); CARBON DIOXIDE 26 MMOL/L (21-32); CHLORIDE 111 MMOL/L (98-107); CREATININE 0.8 MG/DL (0.55-1.30); POTASSIUM 4.3 MMOL/L (3.5-5.1); SODIUM 142 MMOL/L (136-145)
--- NOTE | 2019-04-05 07:10 | NUR ---
NURSE NOTES: Report received from MARLYS Guillaume. Pt is sleeping in bed. Mainly Hebrew speaking. Oriented x4. Able to ambulate to BR. SR on data deliverables manager. On N/C 2L. O2 sat 99%. No respiratory distress noted. No vaginal bleeding noted. IV to right wrist G22 and right EJ G20 patent and asymptomatic. 1/2NS is running at 75cc/hr. Bed in lowest position. Side rails up x3. Will resume plan of care. Addendum: 04/05/19 at 1055 by JU PALOMINO RN RN NURSE NOTES: Report received from MARLYS Guillaume. Pt is sleeping in bed. Mainly Hebrew speaking. Oriented x2. Able to ambulate to BR. SR on data deliverables manager. On N/C 2L. O2 sat 99%. No respiratory distress noted. No vaginal bleeding noted. IV to right wrist G22 and right EJ G20 patent and asymptomatic. 1/2NS is running at 75cc/hr. Bed in lowest position. Side rails up x3. Will resume plan of care.
--- NOTE | 2019-04-05 07:47 | Nephrology Progress Note ---
Assessment/Plan Status: stable Assessment/Plan: A/P 1) Severe Anemia- Vaginal bleed - defer OCP and ?? hysterectomy to [employer] [facility] - Hgb stable, transfer to Tele - GI and Heme to evaluate for alternative causes 2) Elevated Trop I- appreciate cardiology - transfer to tele 3) Hypothyroid- on synthroid and Endo to evaluate 4) DVT propy with SCDs Subjective Date patient seen: Apr 05, 2019 Time patient seen: 07:44 ROS Limited/Unobtainable: No Allergies: Coded Allergies: No Known Allergies (Verified , 09/02/07) Subjective Patient in no overt distress Objective Last 24 Hour Vital Signs Date Time Temp Pulse Resp B/P (MAP) Pulse Ox O2 Delivery O2 Flow Rate FiO2 04/05/19 06:00 71 13 137/86 (103) 97 04/05/19 05:00 70 12 129/82 (98) 100 04/05/19 04:00 98.5 68 12 138/91 (107) 100 04/05/19 04:00 Nasal Cannula 2.0 04/05/19 04:00 69 04/05/19 03:00 67 13 136/83 (100) 100 04/05/19 02:00 70 12 140/88 (105) 100 04/05/19 01:00 69 9 135/83 (100) 100 04/05/19 00:00 Nasal Cannula 2.0 04/05/19 00:00 99.1 70 12 132/79 (96) 100 04/05/19 00:00 68 04/04/19 23:00 70 12 132/82 (99) 100 04/04/19 22:00 71 17 125/77 (93) 100 04/04/19 21:00 74 10 138/81 (100) 94 04/04/19 20:00 98.0 75 12 132/83 (99) 100 04/04/19 20:00 71 04/04/19 20:00 Nasal Cannula 2.0 04/04/19 19:00 74 14 134/86 (102) 100 04/04/19 18:00 74 17 130/75 (93) 100 04/04/19 17:00 67 12 133/84 (100) 100 04/04/19 16:00 Nasal Cannula 2.0 04/04/19 16:00 98.5 69 12 131/87 (102) 100 04/04/19 16:00 72 7/9/19 15:00 71 14 139/89 (106) 100 04/04/19 14:00 65 16 132/84 (100) 100 04/04/19 13:00 66 14 132/80 (97) 100 04/04/19 12:00 Nasal Cannula 2.0 04/04/19 12:00 98.6 67 15 128/76 (93) 100 04/04/19 12:00 64 04/04/19 11:00 78 16 142/82 (102) 100 04/04/19 10:00 67 12 124/81 (95) 100 04/04/19 09:00 65 13 136/78 (97) 99 04/04/19 08:00 Nasal Cannula 2.0 04/04/19 08:00 67 04/04/19 08:00 96.7 65 13 128/83 (98) 100 Intake and Output 04/04/19 04/05/19 19:00 07:00 Intake Total 1307 ml 1593 ml Output Total 2 ml Balance 1305 ml 1593 ml Intake Oral 450 ml 700 ml IV Total 857 ml 893 ml Output Urine Total 2 ml # Voids 2 Laboratory Tests 04/04/19 09:33: Iron Level 12L, Total Iron Binding Capacity 279, Percent Iron Saturation 4L, Unsaturated Iron Binding 267, Triiodothyonine (T3) 56L, Triiodothyronine (T3) Uptake 29 04/05/19 04:41: White Blood Count 5.4, Red Blood Count 3.95L, Hemoglobin 9.0L, Hematocrit 29.4L , Mean Corpuscular Volume 75L, Mean Corpuscular Hemoglobin 22.9L, Mean Corpuscular Hemoglobin Concent 30.7L, Red Cell Distribution Width 23.2H, Platelet Count 312, Mean Platelet Volume 6.1L, Neutrophils (%) (Auto) 68.4, Lymphocytes (%) (Auto) 24.0, Monocytes (%) (Auto) 2.7, Eosinophils (%) (Auto) 4.1H, Basophils (%) (Auto) 0.8, Sodium Level 142, Potassium Level 4.3, Chloride Level 111H, Carbon Dioxide Level 26, Anion Gap 6, Blood Urea Nitrogen 8, Creatinine 0.8, Estimat Glomerular Filtration Rate > 60, Glucose Level 56#L, Calcium Level 8.0L, Troponin I [Pending] Height (Feet): 5 Height (Inches): 4.00 Weight (Pounds): 124 General Appearance: no apparent distress EENT: normal ENT inspection Neck: normal alignment, supple Cardiovascular: normal rate, regular rhythm Respiratory/Chest: lungs clear, normal breath sounds Abdomen: non tender, soft Edema: no edema noted Arm (L), no edema noted Arm (R), no edema noted Leg (L), no edema noted Leg (R), no edema noted Pedal (L), no edema noted Pedal (R), no edema noted Generalized Shane Pang MD Apr 05, 2019 07:47
--- NOTE | 2019-04-05 08:02 | NUR ---
NURSE NOTES: Left a message to Dr Hirsch regarding elevated Troponin 6.120. Awaiting call back for new orders.
--- NOTE | 2019-04-05 08:10 | NUR ---
NURSE NOTES: Dr Hirsch called back. No new orders for now.
[2019-04-05] MEDS: Docusate 100mg cap ORAL SCH ×2 (08:27→20:40)
--- NOTE | 2019-04-05 08:56 | Cardiology Progress Note ---
Assessment/Plan Status: stable Assessment/Plan Assessment/Plan Status: stable Assessment/Plan: Assessment Chest pain elevated troponin hypothyroidism Anemia vaginal bleeding, dysfunctional uterine bleeding Hypertension Elevated ESR/CRP Plan: Serial EKG/Troponin, EKG with no ischemia Pre test probability low for obstructive coronary disease. Check ESR/CRP for pericarditis -> elevated. Echocardiogram to evaluate LV function --> LVEF 45-50% but pericardial effusion present and moderate pulmonary hypertension, no sign of fluid overload clinically NSTEMI likely from anemia, HTN, hypothyroidism, very unlikely to be coronary event/occlusion. Endocrine consult for thyroid replacement Keep HgB >7 Hematology consult to evaluate autoimmune causes of anemia, peripheral smear, taylor etc. Hold aspirin/heparin in setting of vaginal bleeding Distribution Warehouse Manager consult for exam/hysteroscopy - start OCP, consider hysterectomy if no plans for children Ok to transfer to floor: Vitals stable, rhythm stable Subjective Cardiovascular: Reports: no symptoms Respiratory: Reports: no symptoms Gastrointestinal/Abdominal: Reports: no symptoms Genitourinary: Reports: no symptoms Subjective Troponn rising, no chest pain. TTE Left ventricular ejection fraction estimated to be 45-50%. No evidence of left ventricular hypertrophy. Small posterior pericardial effusion. PA pressure 52. ESR and CRP elevated Vitals stable. awaiting Distribution Warehouse Manager consult to evaluate for further source of bleeding. Objective Last 24 Hour Vital Signs Date Time Temp Pulse Resp B/P (MAP) Pulse Ox O2 Delivery O2 Flow Rate FiO2 04/05/19 06:00 71 13 137/86 (103) 97 04/05/19 05:00 70 12 129/82 (98) 100 04/05/19 04:00 98.5 68 12 138/91 (107) 100 04/05/19 04:00 Nasal Cannula 2.0 04/05/19 04:00 69 04/05/19 03:00 67 13 136/83 (100) 100 04/05/19 02:00 70 12 140/88 (105) 100 04/05/19 01:00 69 9 135/83 (100) 100 04/05/19 00:00 Nasal Cannula 2.0 04/05/19 00:00 99.1 70 12 132/79 (96) 100 04/05/19 00:00 68 04/04/19 23:00 70 12 132/82 (99) 100 04/04/19 22:00 71 17 125/77 (93) 100 04/04/19 21:00 74 10 138/81 (100) 94 04/04/19 20:00 98.0 75 12 132/83 (99) 100 04/04/19 20:00 71 04/04/19 20:00 Nasal Cannula 2.0 04/04/19 19:00 74 14 134/86 (102) 100 04/04/19 18:00 74 17 130/75 (93) 100 04/04/19 17:00 67 12 133/84 (100) 100 04/04/19 16:00 Nasal Cannula 2.0 04/04/19 16:00 98.5 69 12 131/87 (102) 100 04/04/19 16:00 72 04/04/19 15:00 71 14 139/89 (106) 100 04/04/19 14:00 65 16 132/84 (100) 100 04/04/19 13:00 66 14 132/80 (97) 100 04/04/19 12:00 Nasal Cannula 2.0 04/04/19 12:00 98.6 67 15 128/76 (93) 100 04/04/19 12:00 64 04/04/19 11:00 78 16 142/82 (102) 100 04/04/19 10:00 67 12 124/81 (95) 100 04/04/19 09:00 65 13 136/78 (97) 99 General Appearance: no apparent distress, alert EENT: PERRL/EOMI, normal ENT inspection, TMs normal, pharynx normal Neck: non-tender, normal alignment, supple, normal inspection, no JVD Rhythm: NSR Cardiovascular: normal peripheral pulses, normal rate, regular rhythm, friction rub Respiratory/Chest: chest wall non-tender, lungs clear, normal breath sounds Abdomen: normal bowel sounds, non tender, soft, no organomegaly, no mass Extremities: normal range of motion, non-tender, normal inspection Neurologic: hide examiner II-XII grossly normal, no motor/sensory deficits Intake and Output 04/04/19 04/05/19 19:00 07:00 Intake Total 1307 ml 1593 ml Output Total 2 ml Balance 1305 ml 1593 ml Intake Oral 450 ml 700 ml IV Total 857 ml 893 ml Output Urine Total 2 ml # Voids 2 Laboratory Tests Test 04/04/19 09:33 7/10/19 04:41 Iron Level 12 ug/dL (50-175) L Total Iron Binding Capacity 279 ug/dL (250-450) Percent Iron Saturation 4 % (15-50) L Unsaturated Iron Binding 267 ug/dL (112-346) Triiodothyonine (T3) 56 ng/dL (71-180) L Triiodothyronine (T3) Uptake 29 % (24-39) White Blood Count 5.4 K/UL (4.8-10.8) Red Blood Count 3.95 M/UL (4.20-5.40) L Hemoglobin 9.0 G/DL (12.0-16.0) L Hematocrit 29.4 % (37.0-47.0) L Mean Corpuscular Volume 75 FL (80-99) L Mean Corpuscular Hemoglobin 22.9 PG (27.0-31.0) L Mean Corpuscular Hemoglobin Concent 30.7 G/DL (32.0-36.0) L Red Cell Distribution Width 23.2 % (11.6-14.8) H Platelet Count 312 K/UL (150-450) Mean Platelet Volume 6.1 FL (6.5-10.1) L Neutrophils (%) (Auto) 68.4 % (45.0-75.0) Lymphocytes (%) (Auto) 24.0 % (20.0-45.0) Monocytes (%) (Auto) 2.7 % (1.0-10.0) Eosinophils (%) (Auto) 4.1 % (0.0-3.0) H Basophils (%) (Auto) 0.8 % (0.0-2.0) Sodium Level 142 MMOL/L (136-145) Potassium Level 4.3 MMOL/L (3.5-5.1) Chloride Level 111 MMOL/L (98-107) H Carbon Dioxide Level 26 MMOL/L (21-32) Anion Gap 6 mmol/L (5-15) Blood Urea Nitrogen 8 mg/dL (7-18) Creatinine 0.8 MG/DL (0.55-1.30) Estimat Glomerular Filtration Rate > 60 mL/min (>60) Glucose Level 56 MG/DL (74-106) #L Calcium Level 8.0 MG/DL (8.5-10.1) L Troponin I 6.120 ng/mL (0.000-0.056) Wade Hirsch MD Apr 05, 2019 08:56
--- NOTE | 2019-04-05 09:31 | NUR ---
NURSE NOTES: Dr Hirsch came to see the patient. Updated him with pt's current condition. Order for another Troponin at 1300 ordered. Will continue to monitor.
--- NOTE | 2019-04-05 10:12 | Consultation ---
Consult Note Consult Note GYNECOLOGY CONSULT NOTE CC: Chest pain and vaginal bleeding HPI: Patient is a 43yo who was admitted with chest pain and severe anemia. Per chart review the patient had vaginal bleeding prior to admission. She is currently admitted to ICU for cardiac workup and elevated Troponins. She is unable to answer questions due to self-reported memory problems. Initially during my encounter with her she reported her last bleeding episode was 4mo ago , then stated 2w ago. Unclear when patient had bleeding, how long the bleeding lasted, or if several episodes of bleeding have occurred over the last several months. Patient has not been compliant with medical recommendations in the past - she has not followed up with DIRECTOR MEDICAL as an outpatient for outpatient workup and management of her bleeding. She is currently reporting upper abdominal pain ( likely referred chest pain). No family is at bedside currently. PMH: T2DM, HTN, hypercholesterolemia, hypothyroidism PSH: C/S x 1 OBHx: - x 3, C/S x 1 (children ages 11-24) GYNHx: Last Pap per patient 8mo ago at her clinic. Unable to provide further history. Meds: Insulin, Synthroid 125mcg Allergies: NKDA SoxHx: Lives with and 2 children, does not work FamHx: Non-contributory Vitals: BP 140/87, HR 77, RR 20, O2 100% 2L NC Exam: Gen: Patient appears weak but in NAD, A&O to name and place only at this time HEENT: Pallor noted, poor dentition Neck: No obvious thyromegaly CV: Regular rate, no tachycardia Pulm: No increased work of breathing Abd: Soft, NTND, no rebound or guarding Pelvic: bimanual exam revealed uterus slightly enlarged, mobile, no adnexal masses noted. Scant blood on exam. No active bleeding. Extremities: FROM, however some muscle wasting Labs: Test 04/03/19 20:20 04/03/19 21:20 04/04/19 04:48 04/04/19 09:33 White Blood Count 5.1 K/UL (4.8-10.8) 5.6 K/UL (4.8-10.8) Red Blood Count 2.49 M/UL (4.20-5.40) 4.00 M/UL (4.20-5.40) Hemoglobin 4.6 G/DL (12.0-16.0) 9.1 G/DL (12.0-16.0) Hematocrit 16.4 % (37.0-47.0) 30.6 % (37.0-47.0) Mean Corpuscular Volume 66 FL (80-99) 76 FL (80-99) Mean Corpuscular Hemoglobin 18.4 PG (27.0-31.0) 22.7 PG (27.0-31.0) Mean Corpuscular Hemoglobin Concent 28.0 G/DL (32.0-36.0) 29.7 G/DL (32.0-36.0) Red Cell Distribution Width 18.1 % (11.6-14.8) 23.9 % (11.6-14.8) Platelet Count 323 K/UL (150-450) 293 K/UL (150-450) Mean Platelet Volume 5.8 FL (6.5-10.1) 5.6 FL (6.5-10.1) Neutrophils (%) (Auto) % (45.0-75.0) 69.9 % (45.0-75.0) Lymphocytes (%) (Auto) % (20.0-45.0) 21.6 % (20.0-45.0) Monocytes (%) (Auto) % (1.0-10.0) 5.7 % (1.0-10.0) Eosinophils (%) (Auto) % (0.0-3.0) 1.8 % (0.0-3.0) Basophils (%) (Auto) % (0.0-2.0) 0.9 % (0.0-2.0) Differential Total Cells Counted 100 Neutrophils % (Manual) 78 % (45-75) Lymphocytes % (Manual) 14 % (20-45) Monocytes % (Manual) 5 % (1-10) Eosinophils % (Manual) 2 % (0-3) Basophils % (Manual) 1 % (0-2) Band Neutrophils 0 % (0-8) Other Cell Type See cmment Platelet Estimate Adequate Platelet Morphology Normal Hypochromasia 3+ Anisocytosis 3+ Microcytosis 3+ Prothrombin Time 10.3 SEC (9.30-11.50) Prothromb Time International Ratio 1.0 (0.9-1.1) Activated Partial Thromboplast Time 25 SEC (23-33) Sodium Level 134 MMOL/L (136-145) 138 MMOL/L (136-145) Potassium Level 4.4 MMOL/L (3.5-5.1) 5.0 MMOL/L (3.5-5.1) Chloride Level 101 MMOL/L (98-107) 107 MMOL/L (98-107) Carbon Dioxide Level 27 MMOL/L (21-32) 23 MMOL/L (21-32) Anion Gap 6 mmol/L (5-15) 8 mmol/L (5-15) Blood Urea Nitrogen 16 mg/dL (7-18) 15 mg/dL (7-18) Creatinine 0.9 MG/DL (0.55-1.30) 0.8 MG/DL (0.55-1.30) Estimat Glomerular Filtration Rate > 60 mL/min (>60) > 60 mL/min (>60) Glucose Level 257 MG/DL (74-106) 239 MG/DL (74-106) Calcium Level 8.2 MG/DL (8.5-10.1) 7.6 MG/DL (8.5-10.1) Total Bilirubin 0.3 MG/DL (0.2-1.0) Aspartate Amino Transf (AST/SGOT) 37 U/L (15-37) Alanine Aminotransferase (ALT/SGPT) 25 U/L (12-78) Alkaline Phosphatase 122 U/L (46-116) Troponin I 4.247 ng/mL (0.000-0.056) 5.797 ng/mL (0.000-0.056) Total Protein 6.5 G/DL (6.4-8.2) Albumin 2.8 G/DL (3.4-5.0) Globulin 3.7 g/dL Albumin/Globulin Ratio 0.8 (1.0-2.7) Lipase 77 U/L (73-393) Thyroid Stimulating Hormone (TSH) 38.881 uiU/mL (0.358-3.740) Urine Color Yellow Urine Appearance Clear Urine pH 5 (4.5-8.0) Urine Specific [place] 1.015 (1.005-1.035) Urine Protein 2+ (NEGATIVE) Urine Glucose (UA) Negative (NEGATIVE) Urine Ketones 1+ (NEGATIVE) Urine Blood 1+ (NEGATIVE) Urine Nitrite Negative (NEGATIVE) Urine Bilirubin Negative (NEGATIVE) Urine Urobilinogen Normal MG/DL (0.0-1.0) Urine Leukocyte Esterase 1+ (NEGATIVE) Urine RBC 0-2 /HPF (0 - 2) Urine WBC 2-4 /HPF (0 - 2) Urine Squamous Epithelial Cells Few /LPF (NONE/OCC) Urine Bacteria Few /HPF (NONE) Urine HCG, Qualitative Negative (NEGATIVE) Erythrocyte Sedimentation Rate 33 MM/HR (0-20) C-Reactive Protein, Quantitative 2.6 mg/dL (0.00-0.90) Triglycerides Level 76 MG/DL (30-150) Cholesterol Level 108 MG/DL (< 200) LDL Cholesterol 59 mg/dL (<100) HDL Cholesterol 36 MG/DL (40-60) Cholesterol/HDL Ratio 3.0 (3.3-4.4) Free Thyroxine 0.56 NG/DL (0.76-1.46) Free Triiodothyronine 0.7 pg/mL (2.3-4.2) Iron Level 12 ug/dL (50-175) Total Iron Binding Capacity 279 ug/dL (250-450) Percent Iron Saturation 4 % (15-50) Unsaturated Iron Binding 267 ug/dL (112-346) Triiodothyonine (T3) 56 ng/dL (71-180) Triiodothyronine (T3) Uptake 29 % (24-39) Test 04/05/19 04:41 White Blood Count 5.4 K/UL (4.8-10.8) Red Blood Count 3.95 M/UL (4.20-5.40) Hemoglobin 9.0 G/DL (12.0-16.0) Hematocrit 29.4 % (37.0-47.0) Mean Corpuscular Volume 75 FL (80-99) Mean Corpuscular Hemoglobin 22.9 PG (27.0-31.0) Mean Corpuscular Hemoglobin Concent 30.7 G/DL (32.0-36.0) Red Cell Distribution Width 23.2 % (11.6-14.8) Platelet Count 312 K/UL (150-450) Mean Platelet Volume 6.1 FL (6.5-10.1) Neutrophils (%) (Auto) 68.4 % (45.0-75.0) Lymphocytes (%) (Auto) 24.0 % (20.0-45.0) Monocytes (%) (Auto) 2.7 % (1.0-10.0) Eosinophils (%) (Auto) 4.1 % (0.0-3.0) Basophils (%) (Auto) 0.8 % (0.0-2.0) Sodium Level 142 MMOL/L (136-145) Potassium Level 4.3 MMOL/L (3.5-5.1) Chloride Level 111 MMOL/L (98-107) Carbon Dioxide Level 26 MMOL/L (21-32) Anion Gap 6 mmol/L (5-15) Blood Urea Nitrogen 8 mg/dL (7-18) Creatinine 0.8 MG/DL (0.55-1.30) Estimat Glomerular Filtration Rate > 60 mL/min (>60) Glucose Level 56 MG/DL (74-106) Calcium Level 8.0 MG/DL (8.5-10.1) Troponin I 6.120 ng/mL (0.000-0.056) Imaging: Findings: Uterus measures 9.5 cm in length by 5.3 cm AP. Small amount of free fluid is seen in the pelvic cul-de-sac. The myometrium is somewhat heterogeneous without discrete abnormality. The endometrium measures up to 15 mm thick. The right ovary measures 2.6 cm length. Left ovary measures 3.2 cm length. No adnexal mass. Normal ovarian blood flow on Doppler imaging Impression: No definite acute abnormality Nonspecific myometrial heterogeneity 15 mm thick endometrium Free cul-de-sac fluid, most likely physiologic This agrees with the preliminary interpretation provided overnight by [facility] teleradiology service. Assessment/Plan 43yo admitted with severe anemia and reported history of vaginal bleeding, however no active bleeding currently and patient undergoing cardiac workup for elevated Troponins - Patient is a poor surgical candidate at this time with elevated Troponins and is not actively bleeding, thus emergent surgery is not warranted - Recommend Social Work consult to facilitate DIRECTOR MEDICAL follow up ARON - names of MDs provided to RN - Ultrasound unremarkable with exception of thickened endometrial lining - Patient will likely need HSC, D&C for both diagnostic and therapeutic purposes - Patient has been told to follow up with DIRECTOR MEDICAL multiple times in the past and has failed to adhere to medical recommendations resulting in multiple ER visits and blood transfusions - Given her current cardiac concerns, I recommend outpatient follow up for evaluation and management of her bleeding with assistance of Social Work given barriers to care in the past Thank you for this interesting consult Signed: MD Theron Lee Carla M.D. Apr 05, 2019 10:12
--- NOTE | 2019-04-05 10:27 | Diagnostic Imaging Report ---
Indication: Pelvic pain and vaginal bleeding x5 days. Negative test. This report early menopause Technique: Transabdominal and transvaginal images of the pelvis. Doppler interrogation of the bilateral ovaries Comparison: 04/03/2019 Findings: Uterus measures 10.1 cm length by 3.9 cm AP. Endometrium measures 11 mm thick. Slightly heterogeneous myometrium without discrete abnormality. Free fluid is seen in the pelvis. Right ovary measures 3.5 cm length. Left ovary measures 3.3 cm length. No adnexal mass. Normal ovarian blood flow on Doppler imaging Impression: No definite acute abnormality 11 mm thick endometrium. Nonspecific most likely physiologic free pelvic fluid This agrees with the preliminary interpretation provided overnight by Dr. Campos
--- NOTE | 2019-04-05 10:51 | NUR ---
NURSE NOTES: Dr Crump, PRODUCT DEVELOPMENT CHEMIST, here to assess the patient. Vaginal exam done by Dr Crump. No bleeding noted. Pt is unable to answer to some questions regarding medical history when asked by doctor. Called and left a message to to find out medical history.
[2019-04-05] MEDS ORDERED: Morphine Sulfate 2mg/ml Inj(IV/IM USE ONLY) IVP PRN (11:15)
--- NOTE | 2019-04-05 11:53 | General Progress Note ---
Assessment/Plan Problem List: (1) Acute DE ICD Codes: I21.9 - Acute myocardial infarction, unspecified SNOMED: 84004307 (2) Dysfunctional uterine bleeding ICD Codes: N93.8 - Other specified abnormal uterine and vaginal bleeding SNOMED: 79160798 (3) Symptomatic anemia ICD Codes: D64.9 - Anemia, unspecified SNOMED: 919872853 (4) DM (diabetes mellitus) ICD Codes: E11.9 - DM (diabetes mellitus) SNOMED: 47868831 (5) Fibroid Status: stable Assessment/Plan: hold GI procedures given acute DE anemia due to vaginal bleed fu stool ob Subjective Allergies: Coded Allergies: No Known Allergies (Verified , 09/02/07) Objective Last 24 Hour Vital Signs Date Time Temp Pulse Resp B/P (MAP) Pulse Ox O2 Delivery O2 Flow Rate FiO2 04/05/19 10:00 77 16 140/87 (104) 99 04/05/19 09:20 76 15 145/89 (107) 100 04/05/19 09:00 80 16 140/86 (104) 100 04/05/19 08:00 Nasal Cannula 2.0 04/05/19 08:00 97.0 73 15 140/86 (104) 99 04/05/19 07:28 73 04/05/19 07:00 77 14 140/93 (109) 100 04/05/19 06:00 71 13 137/86 (103) 97 04/05/19 05:00 70 12 129/82 (98) 100 04/05/19 04:00 98.5 68 12 138/91 (107) 100 04/05/19 04:00 Nasal Cannula 2.0 04/05/19 04:00 69 04/05/19 03:00 67 13 136/83 (100) 100 04/05/19 02:00 70 12 140/88 (105) 100 04/05/19 01:00 69 9 135/83 (100) 100 04/05/19 00:00 Nasal Cannula 2.0 04/05/19 00:00 99.1 70 12 132/79 (96) 100 04/05/19 00:00 68 04/04/19 23:00 70 12 132/82 (99) 100 04/04/19 22:00 71 17 125/77 (93) 100 04/04/19 21:00 74 10 138/81 (100) 94 04/04/19 20:00 98.0 75 12 132/83 (99) 100 04/04/19 20:00 71 04/04/19 20:00 Nasal Cannula 2.0 04/04/19 19:00 74 14 134/86 (102) 100 04/04/19 18:00 74 17 130/75 (93) 100 04/04/19 17:00 67 12 133/84 (100) 100 04/04/19 16:00 Nasal Cannula 2.0 04/04/19 16:00 98.5 69 12 131/87 (102) 100 04/04/19 16:00 72 04/04/19 15:00 71 14 139/89 (106) 100 04/04/19 14:00 65 16 132/84 (100) 100 04/04/19 13:00 66 14 132/80 (97) 100 04/04/19 12:00 Nasal Cannula 2.0 04/04/19 12:00 98.6 67 15 128/76 (93) 100 04/04/19 12:00 64 Intake and Output 04/04/19 04/05/19 19:00 07:00 Intake Total 1307 ml 1668 ml Output Total 2 ml Balance 1305 ml 1668 ml Intake Oral 450 ml 700 ml IV Total 857 ml 968 ml Output Urine Total 2 ml # Voids 2 Laboratory Tests 04/05/19 04:41: White Blood Count 5.4, Red Blood Count 3.95L, Hemoglobin 9.0L, Hematocrit 29.4L , Mean Corpuscular Volume 75L, Mean Corpuscular Hemoglobin 22.9L, Mean Corpuscular Hemoglobin Concent 30.7L, Red Cell Distribution Width 23.2H, Platelet Count 312, Mean Platelet Volume 6.1L, Neutrophils (%) (Auto) 68.4, Lymphocytes (%) (Auto) 24.0, Monocytes (%) (Auto) 2.7, Eosinophils (%) (Auto) 4.1H, Basophils (%) (Auto) 0.8, Sodium Level 142, Potassium Level 4.3, Chloride Level 111H, Carbon Dioxide Level 26, Anion Gap 6, Blood Urea Nitrogen 8, Creatinine 0.8, Estimat Glomerular Filtration Rate > 60, Glucose Level 56#L, Calcium Level 8.0L, Troponin I 6.120H Height (Feet): 5 Height (Inches): 4.00 Weight (Pounds): 124 General Appearance: alert EENT: normal ENT inspection Neck: supple Cardiovascular: normal rate Respiratory/Chest: lungs clear Abdomen: normal bowel sounds, non tender, soft Extremities: non-tender Edin Correia MD Apr 05, 2019 11:53
--- NOTE | 2019-04-05 13:06 | NUR ---
NURSE NOTES: PRN Morphine 1mg IVP given for abdominal pain. Will continue to monitor. Pt is eating lunch in bed.
--- NOTE | 2019-04-05 15:48 | NUR ---
Social Service Note SW met with patient with case worker for Greenlandic translation. Patient states that she had light bleeding for about 4 days but what brought her to the hospital was abdominal pain. Patient states her period is irregular. Patient doesn't believe she was having a miscarriage because her pulls out when he ejaculates. Patient has a total of 4 children 2 adults who live out of the home and 2 minors who are 8 and 12 years old. Patient states she has progressive memory loss. Patient states a MD informed her of this due to her diabetes and an event when she was in a coma. Patient was last seen by her PCP in September. Patient provided SW her clinic card. [facility], [address] [place] [address]., [id number], . SW contacted clinic to schedule an OBGYN follow up appointment. Appointment April 21 at 1230pm. Patient to bring medical records to appointment, H&P, OBGYN consult labs and medication list. Nurse to enter appointment on discharge instructions. Patient's will provide transportation home upon discharge. Will continue to be available as needed.
--- NOTE | 2019-04-05 17:01 | NUR ---
NURSE NOTES: BS 47. D50 50ml given as per protocol. Will recheck BS again in 15 minutes. at bedside. Denies pain or discomfort.
--- NOTE | 2019-04-05 17:20 | NUR ---
NURSE NOTES: Pt drank a cup of orange juice. Pt is eating dinner in bed. BS rechecked. 181. Will continue to monitor.
--- NOTE | 2019-04-05 18:31 | NUR ---
CASE MANAGEMENT: REVIEW 04/05/2019 SI:CP. ANEMIA. NSTEMI>> POSS FROM ANEMIA. S/P 2 UNITS PRBCs T 97 HR 73 RR 15 B/P 140/86 SATS 99% ON 2L/NC HGB 9 HCT 29.4 CL 111 BUN 56 CR 8 TROPONIN 6.120 AND 4.686 IS: IVF @ 75 mL/HR PROTONIX PO QD SYNTHROID PO QD INSULIN ASPART SUBQ AC/HS LEVEMIR SUBQ Q24H LIPITOR PO QHS ICU STATUS DCP: PATIENT TO BE DISCHARGED TO APPROPRIATE LOCATION ONCE MEDICALLY CLEARED. PLAN OF CARE: MANAGER ERP CONSULT >> Patient will likely need HSC, D&C for both diagnostic and therapeutic purposes. Patient is a poor surgical candidate. F/U OUTPT
--- NOTE | 2019-04-05 19:15 | NUR ---
HAND-OFF: Report given to Misael Kothari RN.
--- NOTE | 2019-04-05 19:40 | NUR ---
NURSE NOTES: PATIENT ALERT, ORIENTED X2 CONFUSED TO TIME AND SITUATION AT THIS TIME, RESPIRATION REGULAR ON O2 2LPM VIA NC, O2 SATURATION 100%, DENIED SOB OR DISTRESS NOTED, ABDOMEN SOFT, HYPOACTIVE BOWEL SOUND TO 4 QUADRANTS, PERIPHERAL LINE TO RIGHT WRIST, INTACT AND PATENT, ONGOING 1/2 NS AT 75ML/HR, MADE LOWER BED POSITION, PROVIDED CALL LIGHT WITHIN REACH, WILL CONTINUE TO MONITOR.
[2019-04-05] MEDS ORDERED: Levemir Flexpen SUBQ SCH (22:00)
--- NOTE | 2019-04-05 22:00 | NUR ---
NURSE NOTES: PATIENT WENT TO RESTROOM WITHOUT DIZZINESS OR SOB, VOIDED, YELLOW URINE OUTED.
--- NOTE | 2019-04-05 22:28 | NUR ---
TRANSFER TO FLOOR: Patient transferred to SDU room 234 via hospital bed. Report given to MARLYS KEENAN. Belongings and medications given to MARLYS KEENAN.
--- NOTE | 2019-04-05 22:30 | NUR ---
TRANSFER TO FLOOR: Patient transferred to SDU room 234 as Telemetry overflow. Patient received from Mrs. Taye FRANKEL. Patient is awake oriented to place, person, time and date. Mostly Luxembourger speaking. Patient has R EJ 20G with 1/2 NS at 75ml/hr. Patient is ambulatory with assistance. NAD at this time. Will continue to monitor. Vitals are stable
[2019-04-05] MEDS ORDERED: Nitroglycerin Subl 0.4mg tab SL PRN (22:45)
[2019-04-06] VITALS: BP 133/80
--- NOTE | 2019-04-06 00:35 | NUR ---
NURSE NOTES: RECEIVED THE PATIENT FROM MARLYS KEENAN. PATIENT ASLEEP STATUS, ONGOING 1/2NS AT 75ML/HR VIA RIGHT WRIST PPL, WILL CONTINUE TO MONITOR.
--- NOTE | 2019-04-06 01:15 | Consultation ---
DATE OF CONSULTATION: 04/05/2019 ENDOCRINOLOGY CONSULTATION CONSULTING PHYSICIAN: Amando Holbrook M.D. REFERRING PHYSICIAN: Shane Pang M.D. REASON FOR CONSULTATION: 1. Abnormal TSH. 2. Diabetes management. HISTORY OF PRESENT ILLNESS: The patient is a 43-year-old female, who presents to the emergency department complaining of left-sided chest pain and vaginal bleeding. The patient has hemoglobin of 4.6. Previous admission with severe anemia, receiving blood transfusion. The patient's troponin was elevated. TSH was close to 40 and diabetes was out of control. Endocrinology was consulted. PAST MEDICAL HISTORY: 1. Vaginal bleeding. 2. Anemia. 3. Hypothyroidism. 4. Insulin-dependent diabetes. 5. Hyperlipidemia. MEDICATIONS: As an outpatient reviewed and reconciled. ALLERGIES TO MEDICATIONS: None. FAMILY HISTORY: Noncontributory. SOCIAL HISTORY: Denies smoking, alcohol, or drug use. REVIEW OF SYSTEMS: A 12-point review of systems was performed. The pertinent positives and negatives are mentioned in history of present illness. LABORATORY DATA: Sodium 142, potassium 4.3, chloride 111, bicarb 26, BUN 8, creatinine 0.8, and glucose 156. Troponin 6. TSH of 38.8. PHYSICAL EXAMINATION: GENERAL: She is awake and alert. VITAL SIGNS: Blood pressure is 149/86, pulse of 76, temperature of 98 degrees, and respiratory rate of 18. HEENT: Pupils are equal and reactive to light. Sclerae are anicteric. NECK: No JVD. HEART: Regular. LUNGS: Clear. ABDOMEN: Positive bowel sounds. EXTREMITIES: No clubbing, cyanosis, or edema. DIAGNOSES: 1. Hypothyroidism. Elevated TSH due to noncompliance with levothyroxine. 2. Diabetes, out of control. 3. Severe profound anemia. PLAN: 1. Increase levothyroxine, slightly from 125 to 137 mcg daily. Last year, the patient had a normal TSH on this dose. 2. I will not give her IV levothyroxine in the context of elevated troponin. Her thyroid function should be repeated in 2 to 3 weeks. 3. I will reduce her Levemir from 10 to 8 units at bedtime. 4. Continue with the NovoLog sliding scale at low dose. 5. Further adjustment according to blood glucose values. Thank you, Dr. Pang, for the courtesy of this consultation. Amando Holbrook M.D. DR: VIDAL JOB#: [id number] CC: PEPE
--- NOTE | 2019-04-06 02:30 | NUR ---
NURSE NOTES: PATIENT ASLEEP STATUS, NO ACUTE DISTRESS NOTED AT THIS TIME.
[2019-04-06 04:00] VITALS: BP 138/80
--- NOTE | 2019-04-06 04:20 | NUR ---
NURSE NOTES: MORNING CARE WAS DONE.
[2019-04-06 04:24] LABS: BASOPHILS % (AUTO) 0.9 % (0.0-2.0); HEMATOCRIT 30.5 % (37.0-47.0); HEMOGLOBIN 9.3 G/DL (12.0-16.0); MEAN CORPUSCULAR VOLUME 74 FL (80-99); MONOCYTES % (AUTO) 6.3 % (1.0-10.0); NEUTROPHILS % (AUTO) 68.9 % (45.0-75.0); PLATELET COUNT 300 K/UL (150-450); RED BLOOD COUNT 4.11 M/UL (4.20-5.40); RED CELL DISTRIBUTION WIDTH 22.7 % (11.6-14.8)
[2019-04-06 04:34] LABS: ANION GAP 4 mmol/L (5-15); BLOOD UREA NITROGEN 6 mg/dL (7-18); CARBON DIOXIDE 29 MMOL/L (21-32); CHLORIDE 107 MMOL/L (98-107); CREATININE 0.7 MG/DL (0.55-1.30); POTASSIUM 3.8 MMOL/L (3.5-5.1); SODIUM 140 MMOL/L (136-145)
[2019-04-06 04:39] LABS: % IRON SATURATION 6 % (15-50); IRON 15 ug/dL (50-175); TOTAL IRON BINDING CAPACITY 256 ug/dL (250-450)
--- NOTE | 2019-04-06 06:00 | NUR ---
NURSE NOTES: NO ACUTE DISTRESS NOTED AT THIS SHIFT.
[2019-04-06] MEDS: Levothyroxine 25mcg tab ORAL SCH (06:11)
[2019-04-06] MEDS: NovoLOG Insulin Flexpen SUBQ SCH ×4 (06:29→20:59)
[2019-04-06] MEDS ORDERED: Levothyroxine 25mcg tab ORAL SCH (06:30)
--- NOTE | 2019-04-06 06:47 | General Progress Note ---
Assessment/Plan Problem List: (1) uncontrolled diabetes (2) dysfunctional uterine bleeding (3) Hypothyroidism ICD Codes: E03.9 - Hypothyroidism, unspecified SNOMED: 54734036 (4) Profound anemia ICD Codes: D64.9 - Anemia, unspecified SNOMED: 428456697 Qualifiers: Qualified Codes: D50.0 - Iron deficiency anemia secondary to blood loss ( chronic) Status: stable Assessment/Plan: continue Levothyroxine 137 mcg daily repeat thyroid function in 2 weeks continue Levemir 8 units qhs continue NISS ac / hs Subjective Allergies: Coded Allergies: No Known Allergies (Verified , 09/02/07) All Systems: reviewed and negative except above Subjective events noted feeling better transferred out of ICU Item Value Date Time Bedside Blood Glucose 122 mg/dl H 04/06/19 0629 Bedside Blood Glucose 215 mg/dl H 04/05/19 2136 Bedside Blood Glucose 181 mg/dl H 04/05/19 1720 Bedside Blood Glucose 205 mg/dl H 04/05/19 1151 Bedside Blood Glucose 90 mg/dl 04/05/19 0630 Objective Last 24 Hour Vital Signs Date Time Temp Pulse Resp B/P (MAP) Pulse Ox O2 Delivery O2 Flow Rate FiO2 04/06/19 04:00 97.8 70 18 138/80 (99) 98 04/06/19 04:00 Nasal Cannula 2.0 04/06/19 03:25 72 04/06/19 00:00 Nasal Cannula 2.0 04/06/19 00:00 98.0 70 20 133/80 (97) 98 04/05/19 23:40 68 04/05/19 21:00 72 16 143/87 (105) 100 04/05/19 20:09 73 04/05/19 20:00 98.6 71 16 149/88 (108) 100 04/05/19 20:00 Nasal Cannula 2.0 04/05/19 19:00 71 16 147/87 (107) 100 04/05/19 18:00 76 13 149/86 (107) 100 04/05/19 17:00 70 15 139/75 (96) 99 04/05/19 16:00 Nasal Cannula 2.0 04/05/19 16:00 98.5 70 17 141/83 (102) 100 04/05/19 15:43 68 04/05/19 15:00 75 18 145/87 (106) 100 04/05/19 15:00 67 15 139/83 (101) 100 04/05/19 14:00 75 18 145/87 (106) 100 04/05/19 13:00 75 16 141/95 (110) 100 04/05/19 12:00 98.5 73 17 145/89 (107) 100 04/05/19 12:00 Nasal Cannula 2.0 04/05/19 12:00 73 04/05/19 11:00 75 17 143/86 (105) 100 04/05/19 10:00 77 16 140/87 (104) 99 04/05/19 09:20 76 15 145/89 (107) 100 04/05/19 09:00 80 16 140/86 (104) 100 04/05/19 08:00 Nasal Cannula 2.0 04/05/19 08:00 97.0 73 15 140/86 (104) 99 04/05/19 07:28 73 04/05/19 07:00 77 14 140/93 (109) 100 Intake and Output 04/05/19 04/06/19 18:59 06:59 Intake Total 1100 ml 1250 ml Balance 1100 ml 1250 ml Intake Oral 200 ml 350 ml IV Total 900 ml 900 ml # Voids 3 1 Laboratory Tests 04/05/19 13:30: Troponin I 4.686H 04/06/19 04:15: Troponin I 4.873H, White Blood Count 6.0, Red Blood Count 4.11L, Hemoglobin 9.3L , Hematocrit 30.5L, Mean Corpuscular Volume 74L, Mean Corpuscular Hemoglobin 22.5L, Mean Corpuscular Hemoglobin Concent 30.4L, Red Cell Distribution Width 22.7H, Platelet Count 300, Mean Platelet Volume 5.1L, Neutrophils (%) (Auto) 68.9, Lymphocytes (%) (Auto) 20.0, Monocytes (%) (Auto) 6.3, Eosinophils (%) ( Auto) 4.0H, Basophils (%) (Auto) 0.9, Sodium Level 140, Potassium Level 3.8, Chloride Level 107, Carbon Dioxide Level 29, Anion Gap 4L, Blood Urea Nitrogen 6L, Creatinine 0.7, Estimat Glomerular Filtration Rate > 60, Glucose Level 123H , Calcium Level 8.0L, Iron Level 15L, Total Iron Binding Capacity 256, Percent Iron Saturation 6L, Unsaturated Iron Binding 241, Vitamin B12 Level 807, Folate 19.1 Height (Feet): 5 Height (Inches): 4.00 Weight (Pounds): 107 General Appearance: no apparent distress Neck: normal alignment Cardiovascular: normal rate Respiratory/Chest: lungs clear Abdomen: normal bowel sounds Pelvis: normal external exam Edema: 1+ Arm (L), 1+ Arm (R), 1+ Leg (L), 1+ Leg (R), 1+ Pedal (L), 1+ Pedal ( R), 1+ Generalized Objective Current Medications Medications (Trade) Dose Ordered Sig/Alycia Route PRN Reason Start Time Stop Time Status Last Admin Dose Admin Acetaminophen (Tylenol) 650 mg Q4H PRN ORAL Mild Pain (Pain Scale 1-3) 04/06/19 02:15 05/03/19 22:14 Atorvastatin Calcium (Lipitor) 10 mg QHS ORAL 04/06/19 21:00 05/04/19 20:59 Dextrose (Dextrose 50%) 25 ml Q30M PRN IV Hypoglycemia 04/05/19 22:45 05/03/19 22:14 Dextrose (Dextrose 50%) 50 ml Q30M PRN IV Hypoglycemia 04/05/19 22:45 05/03/19 22:14 Diphenhydramine HCl (Benadryl) 25 mg Q6H PRN ORAL Itching/Pruritis 04/06/19 04:15 05/03/19 22:14 Docusate Sodium (Colace) 100 mg EVERY 12 HOURS ORAL 04/06/19 09:00 05/04/19 08:59 Insulin Aspart (NovoLOG) BEFORE MEALS AND HS SUBQ 04/06/19 06:30 05/04/19 06:29 04/06/19 06:29 Insulin Detemir (Levemir) 8 units Q24H SUBQ 04/06/19 22:00 05/03/19 21:59 Levothyroxine Sodium (Synthroid) 25 mcg DAILY@0630 ORAL 04/06/19 06:30 05/06/19 06:29 04/06/19 06:11 Levothyroxine Sodium (Synthroid) 112 mcg DAILY@0630 ORAL 04/06/19 06:30 05/04/19 06:29 04/06/19 06:11 Morphine Sulfate (Morphine Sulfate) 1 mg Q4H PRN IVP PAIN 4-10 04/05/19 23:15 04/12/19 11:14 Nitroglycerin (Ntg) 0.4 mg Q5M PRN SL Prn Chest Pain 04/05/19 22:45 05/03/19 22:14 Ondansetron HCl (Zofran) 4 mg Q6H PRN IVP Nausea & Vomiting 04/06/19 04:15 05/03/19 22:14 Pantoprazole (Protonix) 40 mg DAILY ORAL 04/06/19 09:00 05/04/19 08:59 Sodium Chloride 1,000 ml @ 75 mls/hr [id number] IV 04/05/19 22:45 05/03/19 23:00 04/06/19 05:19 Amando Holbrook MD Apr 06, 2019 06:47
--- NOTE | 2019-04-06 07:15 | NUR ---
HAND-OFF: Report given to MARLYS CALZADA.
--- NOTE | 2019-04-06 07:32 | NUR ---
NURSE NOTES: Received report from MARLYS Douglas. Patient is resting in bed, in stable condition. No s/sx of SOB, breathing is even and unlabored. Bed is in lowest position, brakes engaged. Call light is kept within easy reach. Will continue to monitor patient.
--- NOTE | 2019-04-06 07:47 | Nephrology Progress Note ---
Assessment/Plan Status: stable Assessment/Plan: A/P 1) Severe Anemia- Vaginal bleed - defer OCP and ?? appreciate [facility] assistance - Hgb stable, transfer to Tele - appreciate GI evaluation. 2) Elevated Trop I- appreciate cardiology - DC once cleared by Cardiology and [facility] out pt follow up established 3) Hypothyroid- on synthroid. 4) DVT propy with SCDs Subjective Date patient seen: Apr 06, 2019 Time patient seen: 07:43 ROS Limited/Unobtainable: No Allergies: Coded Allergies: No Known Allergies (Verified , 09/02/07) Subjective Patient in no overt distress eating bkfst Objective Last 24 Hour Vital Signs Date Time Temp Pulse Resp B/P (MAP) Pulse Ox O2 Delivery O2 Flow Rate FiO2 04/06/19 04:00 97.8 70 18 138/80 (99) 98 04/06/19 04:00 Nasal Cannula 2.0 04/06/19 03:25 72 04/06/19 00:00 Nasal Cannula 2.0 04/06/19 00:00 98.0 70 20 133/80 (97) 98 04/05/19 23:40 68 04/05/19 21:00 72 16 143/87 (105) 100 04/05/19 20:09 73 04/05/19 20:00 98.6 71 16 149/88 (108) 100 04/05/19 20:00 Nasal Cannula 2.0 04/05/19 19:00 71 16 147/87 (107) 100 04/05/19 18:00 76 13 149/86 (107) 100 04/05/19 17:00 70 15 139/75 (96) 99 04/05/19 16:00 Nasal Cannula 2.0 04/05/19 16:00 98.5 70 17 141/83 (102) 100 04/05/19 15:43 68 04/05/19 15:00 75 18 145/87 (106) 100 04/05/19 15:00 67 15 139/83 (101) 100 04/05/19 14:00 75 18 145/87 (106) 100 04/05/19 13:00 75 16 141/95 (110) 100 04/05/19 12:00 98.5 73 17 145/89 (107) 100 04/05/19 12:00 Nasal Cannula 2.0 04/05/19 12:00 73 04/05/19 11:00 75 17 143/86 (105) 100 04/05/19 10:00 77 16 140/87 (104) 99 04/05/19 09:20 76 15 145/89 (107) 100 04/05/19 09:00 80 16 140/86 (104) 100 04/05/19 08:00 Nasal Cannula 2.0 04/05/19 08:00 97.0 73 15 140/86 (104) 99 Intake and Output 04/05/19 04/06/19 19:00 07:00 Intake Total 1100 ml 1425 ml Balance 1100 ml 1425 ml Intake Oral 200 ml 600 ml IV Total 900 ml 825 ml # Voids 3 3 Laboratory Tests 04/05/19 13:30: Troponin I 4.686H 04/06/19 04:15: Troponin I 4.873H, White Blood Count 6.0, Red Blood Count 4.11L, Hemoglobin 9.3L , Hematocrit 30.5L, Mean Corpuscular Volume 74L, Mean Corpuscular Hemoglobin 22.5L, Mean Corpuscular Hemoglobin Concent 30.4L, Red Cell Distribution Width 22.7H, Platelet Count 300, Mean Platelet Volume 5.1L, Neutrophils (%) (Auto) 68.9, Lymphocytes (%) (Auto) 20.0, Monocytes (%) (Auto) 6.3, Eosinophils (%) ( Auto) 4.0H, Basophils (%) (Auto) 0.9, Sodium Level 140, Potassium Level 3.8, Chloride Level 107, Carbon Dioxide Level 29, Anion Gap 4L, Blood Urea Nitrogen 6L, Creatinine 0.7, Estimat Glomerular Filtration Rate > 60, Glucose Level 123H , Calcium Level 8.0L, Iron Level 15L, Total Iron Binding Capacity 256, Percent Iron Saturation 6L, Unsaturated Iron Binding 241, Vitamin B12 Level 807, Folate 19.1 Height (Feet): 5 Height (Inches): 4.00 Weight (Pounds): 107 General Appearance: no apparent distress, alert EENT: normal ENT inspection Neck: normal alignment, supple Cardiovascular: normal rate, regular rhythm Respiratory/Chest: lungs clear, normal breath sounds Abdomen: non tender, soft Edema: no edema noted Arm (L), no edema noted Arm (R), no edema noted Leg (L), no edema noted Leg (R), no edema noted Pedal (L), no edema noted Pedal (R), no edema noted Generalized Shane Pang MD Apr 06, 2019 07:47
[2019-04-06 08:00] VITALS: BP 145/85
[2019-04-06] MEDS: Docusate 100mg cap ORAL SCH ×2 (08:09→21:00)
--- NOTE | 2019-04-06 08:44 | Cardiology Progress Note ---
Assessment/Plan Status: stable Assessment/Plan Assessment/Plan Status: stable Assessment/Plan: Assessment Chest pain elevated troponin hypothyroidism Anemia vaginal bleeding, dysfunctional uterine bleeding Hypertension Elevated ESR/CRP Plan: D/c troponin check Monitor ESR/CRP outpatient Will not treat for pericarditis due to lack of symptoms Ok to discharge Subjective Cardiovascular: Reports: no symptoms Respiratory: Reports: no symptoms Gastrointestinal/Abdominal: Reports: no symptoms Genitourinary: Reports: no symptoms Subjective Troponn peaked and is coming down, no chest pain. TTE Left ventricular ejection fraction estimated to be 45-50%. No evidence of left ventricular hypertrophy. Small posterior pericardial effusion. PA pressure 52. ESR and CRP elevated Vitals stable. No plans for CAP SIZER surgery as inpatient Objective Last 24 Hour Vital Signs Date Time Temp Pulse Resp B/P (MAP) Pulse Ox O2 Delivery O2 Flow Rate FiO2 04/06/19 04:00 97.8 70 18 138/80 (99) 98 04/06/19 04:00 Nasal Cannula 2.0 04/06/19 03:25 72 04/06/19 00:00 Nasal Cannula 2.0 04/06/19 00:00 98.0 70 20 133/80 (97) 98 04/05/19 23:40 68 04/05/19 21:00 72 16 143/87 (105) 100 04/05/19 20:09 73 04/05/19 20:00 98.6 71 16 149/88 (108) 100 04/05/19 20:00 Nasal Cannula 2.0 04/05/19 19:00 71 16 147/87 (107) 100 04/05/19 18:00 76 13 149/86 (107) 100 04/05/19 17:00 70 15 139/75 (96) 99 04/05/19 16:00 Nasal Cannula 2.0 04/05/19 16:00 98.5 70 17 141/83 (102) 100 04/05/19 15:43 68 04/05/19 15:00 75 18 145/87 (106) 100 04/05/19 15:00 67 15 139/83 (101) 100 04/05/19 14:00 75 18 145/87 (106) 100 04/05/19 13:00 75 16 141/95 (110) 100 04/05/19 12:00 98.5 73 17 145/89 (107) 100 04/05/19 12:00 Nasal Cannula 2.0 04/05/19 12:00 73 04/05/19 11:00 75 17 143/86 (105) 100 04/05/19 10:00 77 16 140/87 (104) 99 04/05/19 09:20 76 15 145/89 (107) 100 04/05/19 09:00 80 16 140/86 (104) 100 General Appearance: no apparent distress, alert EENT: PERRL/EOMI, normal ENT inspection, TMs normal Neck: non-tender, normal alignment, supple Rhythm: NSR Cardiovascular: normal peripheral pulses, normal rate, regular rhythm Respiratory/Chest: chest wall non-tender, lungs clear, normal breath sounds Abdomen: normal bowel sounds, non tender, soft, no organomegaly, no mass Extremities: normal range of motion, non-tender, normal inspection, no calf tenderness, no swelling Neurologic: leadership program internship II-XII grossly normal, no motor/sensory deficits Intake and Output 04/05/19 04/06/19 19:00 07:00 Intake Total 1100 ml 1425 ml Balance 1100 ml 1425 ml Intake Oral 200 ml 600 ml IV Total 900 ml 825 ml # Voids 3 3 Laboratory Tests Test 04/05/19 13:30 04/06/19 04:15 Troponin I 4.686 ng/mL (0.000-0.056) 4.873 ng/mL (0.000-0.056) White Blood Count 6.0 K/UL (4.8-10.8) Red Blood Count 4.11 M/UL (4.20-5.40) L Hemoglobin 9.3 G/DL (12.0-16.0) L Hematocrit 30.5 % (37.0-47.0) L Mean Corpuscular Volume 74 FL (80-99) L Mean Corpuscular Hemoglobin 22.5 PG (27.0-31.0) L Mean Corpuscular Hemoglobin Concent 30.4 G/DL (32.0-36.0) L Red Cell Distribution Width 22.7 % (11.6-14.8) H Platelet Count 300 K/UL (150-450) Mean Platelet Volume 5.1 FL (6.5-10.1) L Neutrophils (%) (Auto) 68.9 % (45.0-75.0) Lymphocytes (%) (Auto) 20.0 % (20.0-45.0) Monocytes (%) (Auto) 6.3 % (1.0-10.0) Eosinophils (%) (Auto) 4.0 % (0.0-3.0) H Basophils (%) (Auto) 0.9 % (0.0-2.0) Sodium Level 140 MMOL/L (136-145) Potassium Level 3.8 MMOL/L (3.5-5.1) Chloride Level 107 MMOL/L (98-107) Carbon Dioxide Level 29 MMOL/L (21-32) Anion Gap 4 mmol/L (5-15) L Blood Urea Nitrogen 6 mg/dL (7-18) L Creatinine 0.7 MG/DL (0.55-1.30) Estimat Glomerular Filtration Rate > 60 mL/min (>60) Glucose Level 123 MG/DL (74-106) H Calcium Level 8.0 MG/DL (8.5-10.1) L Iron Level 15 ug/dL (50-175) L Total Iron Binding Capacity 256 ug/dL (250-450) Percent Iron Saturation 6 % (15-50) L Unsaturated Iron Binding 241 ug/dL (112-346) Vitamin B12 Level 807 PG/ML (193-986) Folate 19.1 NG/ML (8.6-58.9) Microbiology Date/Time Source Procedure Growth Status 04/04/19 20:00 Rectum - Final NO CARBAPENEM-RESISTANT ENTEROBACTERI... Complete 04/03/19 21:20 Rectum VRE Culture - Final NO VANCOMYCIN RESISTANT ENTEROCOCCUS ... Complete Wade Hirsch MD Apr 06, 2019 08:44
--- NOTE | 2019-04-06 09:00 | NUR ---
NURSE NOTES: Dr. Hirsch seen and examined patient. Dr. Hirsch informed this nurse that patient is cleared from cardiology perspective. Noted.
--- NOTE | 2019-04-06 09:56 | Hematology/Onc Progress Note ---
Assessment/Plan Assessment/Plan # Severe Anemia of iron deficiency - due very likely to vaginal bleed, has seen information systems analyst in the past, may need further followup, in prior ferritin was <30, definitely requires iron --> defer OCP and as per information systems analyst --> hgb 4.6-->6-->8.9 --> IV Iron has been started 100mg iv daily x 5 days --> Gi has been consulted as well --> r/o gi bleed # Elevated Trop I, chest pain --> per cards unlikely pericarditis, won't treat --> could be related to anemia on presentation # Hypothyroid- on synthroid. # Vaginal bleeding, dysfunctional uterine bleeding # DVT propy with SCDs Greatly appreciate consultation. Subjective Constitutional: Denies: no symptoms, chills, fever, malaise, weakness, other HEENT: Denies: no symptoms, eye pain, blurred vision, tearing, double vision, ear pain, ear discharge, nose pain, nose congestion, throat pain, throat swelling, mouth pain, mouth swelling, other Cardiovascular: Denies: no symptoms, chest pain, edema, irregular heart rate, lightheadedness, palpitations, syncope, other Respiratory: Denies: no symptoms, cough, shortness of breath, SOB with excertion, SOB at rest, sputum, wheezing, other Gastrointestinal/Abdominal: Denies: no symptoms, abdomen distended, abdominal pain, black stools, tarry stools, blood in stool, constipated, diarrhea, difficulty swallowing, nausea, poor appetite, poor fluid intake, rectal bleeding , vomiting, other Genitourinary: Denies: no symptoms, burning, discharge, frequency, flank pain, hematuria, incontinence, pain, urgency, other Neurologic/Psychiatric: Denies: no symptoms, anxiety, depressed, emotional problems, headache, numbness, paresthesia, pre-existing deficit, seizure, tingling, tremors, weakness, other Endocrine: Denies: no symptoms, excessive sweating, flushing, intolerance to cold, intolerance to heat, increased hunger, increased thirst, increased urine, unexplained weight gain, unexplained weight loss, other Hematologic/Lymphatic: Denies: no symptoms, anemia, easy bleeding, easy bruising, adenopathy, other Allergies: Coded Allergies: No Known Allergies (Verified , 09/02/07) Subjective 7/11: no fevers or chills, no bleeding reported, hgb currently 9.3 Objective Objective Current Medications Medications (Trade) Dose Ordered Sig/Alycia Route PRN Reason Start Time Stop Time Status Last Admin Dose Admin Acetaminophen (Tylenol) 650 mg Q4H PRN ORAL Mild Pain (Pain Scale 1-3) 04/06/19 02:15 05/03/19 22:14 Atorvastatin Calcium (Lipitor) 10 mg QHS ORAL 04/06/19 21:00 05/04/19 20:59 Dextrose (Dextrose 50%) 25 ml Q30M PRN IV Hypoglycemia 04/05/19 22:45 05/03/19 22:14 Dextrose (Dextrose 50%) 50 ml Q30M PRN IV Hypoglycemia 04/05/19 22:45 05/03/19 22:14 Diphenhydramine HCl (Benadryl) 25 mg Q6H PRN ORAL Itching/Pruritis 04/06/19 04:15 05/03/19 22:14 Docusate Sodium (Colace) 100 mg EVERY 12 HOURS ORAL 04/06/19 09:00 05/04/19 08:59 04/06/19 08:09 Insulin Aspart (NovoLOG) BEFORE MEALS AND HS SUBQ 04/06/19 06:30 05/04/19 06:29 04/06/19 06:29 Insulin Detemir (Levemir) 8 units Q24H SUBQ 04/06/19 22:00 05/03/19 21:59 Levothyroxine Sodium (Synthroid) 25 mcg DAILY@0630 ORAL 04/06/19 06:30 05/06/19 06:29 04/06/19 06:11 Levothyroxine Sodium (Synthroid) 112 mcg DAILY@0630 ORAL 04/06/19 06:30 05/04/19 06:29 04/06/19 06:11 Morphine Sulfate (Morphine Sulfate) 1 mg Q4H PRN IVP PAIN 4-10 04/05/19 23:15 04/12/19 11:14 Nitroglycerin (Ntg) 0.4 mg Q5M PRN SL Prn Chest Pain 04/05/19 22:45 05/03/19 22:14 Ondansetron HCl (Zofran) 4 mg Q6H PRN IVP Nausea & Vomiting 04/06/19 04:15 05/03/19 22:14 Pantoprazole (Protonix) 40 mg DAILY ORAL 04/06/19 09:00 05/04/19 08:59 04/06/19 08:09 Sodium Chloride 1,000 ml @ 75 mls/hr [id number] IV 04/05/19 22:45 05/03/19 23:00 04/06/19 05:19 Last 24 Hour Vital Signs Date Time Temp Pulse Resp B/P (MAP) Pulse Ox O2 Delivery O2 Flow Rate FiO2 04/06/19 08:00 Nasal Cannula 2.0 04/06/19 08:00 97.6 72 18 145/85 (105) 97 04/06/19 07:55 75 04/06/19 04:00 97.8 70 18 138/80 (99) 98 04/06/19 04:00 Nasal Cannula 2.0 04/06/19 03:25 72 04/06/19 00:00 Nasal Cannula 2.0 04/06/19 00:00 98.0 70 20 133/80 (97) 98 04/05/19 23:40 68 04/05/19 21:00 72 16 143/87 (105) 100 04/05/19 20:09 73 04/05/19 20:00 98.6 71 16 149/88 (108) 100 04/05/19 20:00 Nasal Cannula 2.0 04/05/19 19:00 71 16 147/87 (107) 100 04/05/19 18:00 76 13 149/86 (107) 100 04/05/19 17:00 70 15 139/75 (96) 99 04/05/19 16:00 Nasal Cannula 2.0 04/05/19 16:00 98.5 70 17 141/83 (102) 100 04/05/19 15:43 68 04/05/19 15:00 75 18 145/87 (106) 100 04/05/19 15:00 67 15 139/83 (101) 100 04/05/19 14:00 75 18 145/87 (106) 100 04/05/19 13:00 75 16 141/95 (110) 100 04/05/19 12:00 98.5 73 17 145/89 (107) 100 04/05/19 12:00 Nasal Cannula 2.0 04/05/19 12:00 73 04/05/19 11:00 75 17 143/86 (105) 100 04/05/19 10:00 77 16 140/87 (104) 99 04/05/19 09:20 76 15 145/89 (107) 100 04/05/19 09:00 80 16 140/86 (104) 100 04/05/19 08:00 Nasal Cannula 2.0 04/05/19 08:00 97.0 73 15 140/86 (104) 99 04/05/19 07:28 73 04/05/19 07:00 77 14 140/93 (109) 100 04/05/19 06:00 71 13 137/86 (103) 97 04/05/19 05:00 70 12 129/82 (98) 100 04/05/19 04:00 98.5 68 12 138/91 (107) 100 04/05/19 04:00 Nasal Cannula 2.0 04/05/19 04:00 69 04/05/19 03:00 67 13 136/83 (100) 100 04/05/19 02:00 70 12 140/88 (105) 100 04/05/19 01:00 69 9 135/83 (100) 100 04/05/19 00:00 Nasal Cannula 2.0 04/05/19 00:00 99.1 70 12 132/79 (96) 100 04/05/19 00:00 68 04/04/19 23:00 70 12 132/82 (99) 100 04/04/19 22:00 71 17 125/77 (93) 100 04/04/19 21:00 74 10 138/81 (100) 94 04/04/19 20:00 98.0 75 12 132/83 (99) 100 04/04/19 20:00 71 04/04/19 20:00 Nasal Cannula 2.0 04/04/19 19:00 74 14 134/86 (102) 100 04/04/19 18:00 74 17 130/75 (93) 100 04/04/19 17:00 67 12 133/84 (100) 100 04/04/19 16:00 Nasal Cannula 2.0 04/04/19 16:00 98.5 69 12 131/87 (102) 100 04/04/19 16:00 72 04/04/19 15:00 71 14 139/89 (106) 100 04/04/19 14:00 65 16 132/84 (100) 100 04/04/19 13:00 66 14 132/80 (97) 100 04/04/19 12:00 Nasal Cannula 2.0 04/04/19 12:00 98.6 67 15 128/76 (93) 100 04/04/19 12:00 64 04/04/19 11:00 78 16 142/82 (102) 100 04/04/19 10:00 67 12 124/81 (95) 100 Intake and Output 04/05/19 04/06/19 19:00 07:00 Intake Total 1100 ml 1425 ml Balance 1100 ml 1425 ml Intake Oral 200 ml 600 ml IV Total 900 ml 825 ml # Voids 3 3 Labs Test 04/03/19 20:20 04/03/19 21:20 04/04/19 04:48 04/04/19 09:33 White Blood Count 5.1 K/UL (4.8-10.8) 5.6 K/UL (4.8-10.8) Red Blood Count 2.49 M/UL (4.20-5.40) 4.00 M/UL (4.20-5.40) Hemoglobin 4.6 G/DL (12.0-16.0) 9.1 G/DL (12.0-16.0) Hematocrit 16.4 % (37.0-47.0) 30.6 % (37.0-47.0) Mean Corpuscular Volume 66 FL (80-99) 76 FL (80-99) Mean Corpuscular Hemoglobin 18.4 PG (27.0-31.0) 22.7 PG (27.0-31.0) Mean Corpuscular Hemoglobin Concent 28.0 G/DL (32.0-36.0) 29.7 G/DL (32.0-36.0) Red Cell Distribution Width 18.1 % (11.6-14.8) 23.9 % (11.6-14.8) Platelet Count 323 K/UL (150-450) 293 K/UL (150-450) Mean Platelet Volume 5.8 FL (6.5-10.1) 5.6 FL (6.5-10.1) Neutrophils (%) (Auto) % (45.0-75.0) 69.9 % (45.0-75.0) Lymphocytes (%) (Auto) % (20.0-45.0) 21.6 % (20.0-45.0) Monocytes (%) (Auto) % (1.0-10.0) 5.7 % (1.0-10.0) Eosinophils (%) (Auto) % (0.0-3.0) 1.8 % (0.0-3.0) Basophils (%) (Auto) % (0.0-2.0) 0.9 % (0.0-2.0) Differential Total Cells Counted 100 Neutrophils % (Manual) 78 % (45-75) Lymphocytes % (Manual) 14 % (20-45) Monocytes % (Manual) 5 % (1-10) Eosinophils % (Manual) 2 % (0-3) Basophils % (Manual) 1 % (0-2) Band Neutrophils 0 % (0-8) Other Cell Type See cmment Platelet Estimate Adequate Platelet Morphology Normal Hypochromasia 3+ Anisocytosis 3+ Microcytosis 3+ Prothrombin Time 10.3 SEC (9.30-11.50) Prothromb Time International Ratio 1.0 (0.9-1.1) Activated Partial Thromboplast Time 25 SEC (23-33) Sodium Level 134 MMOL/L (136-145) 138 MMOL/L (136-145) Potassium Level 4.4 MMOL/L (3.5-5.1) 5.0 MMOL/L (3.5-5.1) Chloride Level 101 MMOL/L (98-107) 107 MMOL/L (98-107) Carbon Dioxide Level 27 MMOL/L (21-32) 23 MMOL/L (21-32) Anion Gap 6 mmol/L (5-15) 8 mmol/L (5-15) Blood Urea Nitrogen 16 mg/dL (7-18) 15 mg/dL (7-18) Creatinine 0.9 MG/DL (0.55-1.30) 0.8 MG/DL (0.55-1.30) Estimat Glomerular Filtration Rate > 60 mL/min (>60) > 60 mL/min (>60) Glucose Level 257 MG/DL (74-106) 239 MG/DL (74-106) Calcium Level 8.2 MG/DL (8.5-10.1) 7.6 MG/DL (8.5-10.1) Total Bilirubin 0.3 MG/DL (0.2-1.0) Aspartate Amino Transf (AST/SGOT) 37 U/L (15-37) Alanine Aminotransferase (ALT/SGPT) 25 U/L (12-78) Alkaline Phosphatase 122 U/L (46-116) Troponin I 4.247 ng/mL (0.000-0.056) 5.797 ng/mL (0.000-0.056) Total Protein 6.5 G/DL (6.4-8.2) Albumin 2.8 G/DL (3.4-5.0) Globulin 3.7 g/dL Albumin/Globulin Ratio 0.8 (1.0-2.7) Lipase 77 U/L (73-393) Thyroid Stimulating Hormone (TSH) 38.881 uiU/mL (0.358-3.740) Urine Color Yellow Urine Appearance Clear Urine pH 5 (4.5-8.0) Urine Specific [place] 1.015 (1.005-1.035) Urine Protein 2+ (NEGATIVE) Urine Glucose (UA) Negative (NEGATIVE) Urine Ketones 1+ (NEGATIVE) Urine Blood 1+ (NEGATIVE) Urine Nitrite Negative (NEGATIVE) Urine Bilirubin Negative (NEGATIVE) Urine Urobilinogen Normal MG/DL (0.0-1.0) Urine Leukocyte Esterase 1+ (NEGATIVE) Urine RBC 0-2 /HPF (0 - 2) Urine WBC 2-4 /HPF (0 - 2) Urine Squamous Epithelial Cells Few /LPF (NONE/OCC) Urine Bacteria Few /HPF (NONE) Urine HCG, Qualitative Negative (NEGATIVE) Erythrocyte Sedimentation Rate 33 MM/HR (0-20) C-Reactive Protein, Quantitative 2.6 mg/dL (0.00-0.90) Triglycerides Level 76 MG/DL (30-150) Cholesterol Level 108 MG/DL (< 200) LDL Cholesterol 59 mg/dL (<100) HDL Cholesterol 36 MG/DL (40-60) Cholesterol/HDL Ratio 3.0 (3.3-4.4) Free Thyroxine 0.56 NG/DL (0.76-1.46) Free Triiodothyronine 0.7 pg/mL (2.3-4.2) Iron Level 12 ug/dL (50-175) Total Iron Binding Capacity 279 ug/dL (250-450) Percent Iron Saturation 4 % (15-50) Unsaturated Iron Binding 267 ug/dL (112-346) Triiodothyonine (T3) 56 ng/dL (71-180) Triiodothyronine (T3) Uptake 29 % (24-39) Test 04/05/19 04:41 04/05/19 13:30 04/06/19 04:15 White Blood Count 5.4 K/UL (4.8-10.8) 6.0 K/UL (4.8-10.8) Red Blood Count 3.95 M/UL (4.20-5.40) 4.11 M/UL (4.20-5.40) Hemoglobin 9.0 G/DL (12.0-16.0) 9.3 G/DL (12.0-16.0) Hematocrit 29.4 % (37.0-47.0) 30.5 % (37.0-47.0) Mean Corpuscular Volume 75 FL (80-99) 74 FL (80-99) Mean Corpuscular Hemoglobin 22.9 PG (27.0-31.0) 22.5 PG (27.0-31.0) Mean Corpuscular Hemoglobin Concent 30.7 G/DL (32.0-36.0) 30.4 G/DL (32.0-36.0) Red Cell Distribution Width 23.2 % (11.6-14.8) 22.7 % (11.6-14.8) Platelet Count 312 K/UL (150-450) 300 K/UL (150-450) Mean Platelet Volume 6.1 FL (6.5-10.1) 5.1 FL (6.5-10.1) Neutrophils (%) (Auto) 68.4 % (45.0-75.0) 68.9 % (45.0-75.0) Lymphocytes (%) (Auto) 24.0 % (20.0-45.0) 20.0 % (20.0-45.0) Monocytes (%) (Auto) 2.7 % (1.0-10.0) 6.3 % (1.0-10.0) Eosinophils (%) (Auto) 4.1 % (0.0-3.0) 4.0 % (0.0-3.0) Basophils (%) (Auto) 0.8 % (0.0-2.0) 0.9 % (0.0-2.0) Sodium Level 142 MMOL/L (136-145) 140 MMOL/L (136-145) Potassium Level 4.3 MMOL/L (3.5-5.1) 3.8 MMOL/L (3.5-5.1) Chloride Level 111 MMOL/L (98-107) 107 MMOL/L (98-107) Carbon Dioxide Level 26 MMOL/L (21-32) 29 MMOL/L (21-32) Anion Gap 6 mmol/L (5-15) 4 mmol/L (5-15) Blood Urea Nitrogen 8 mg/dL (7-18) 6 mg/dL (7-18) Creatinine 0.8 MG/DL (0.55-1.30) 0.7 MG/DL (0.55-1.30) Estimat Glomerular Filtration Rate > 60 mL/min (>60) > 60 mL/min (>60) Glucose Level 56 MG/DL (74-106) 123 MG/DL (74-106) Calcium Level 8.0 MG/DL (8.5-10.1) 8.0 MG/DL (8.5-10.1) Troponin I 6.120 ng/mL (0.000-0.056) 4.686 ng/mL (0.000-0.056) 4.873 ng/mL (0.000-0.056) Iron Level 15 ug/dL (50-175) Total Iron Binding Capacity 256 ug/dL (250-450) Percent Iron Saturation 6 % (15-50) Unsaturated Iron Binding 241 ug/dL (112-346) Vitamin B12 Level 807 PG/ML (193-986) Folate 19.1 NG/ML (8.6-58.9) Height (Feet): 5 Height (Inches): 4.00 Weight (Pounds): 107 Objective GeN: NAD PulM: CTAB, no cwr CV: RRR, no mgr Abd: soft, nt, nd Ext: no cce Maverick Welch MD Apr 06, 2019 09:56
[2019-04-06] MEDS: Morphine Sulfate 2mg/ml Inj(IV/IM USE ONLY) IVP PRN ×2 (10:08→23:02)
--- NOTE | 2019-04-06 11:29 | GI Progress Note ---
Assessment/Plan Problems: (1) Iron deficiency ICD Codes: E61.1 - Iron deficiency SNOMED: 04489613 (2) Anemia ICD Codes: D64.9 - Anemia, unspecified SNOMED: 920763196 (3) Vaginal bleeding ICD Codes: N89.8 - Other specified noninflammatory disorders of vagina SNOMED: 574129570 (4) DM (diabetes mellitus) ICD Codes: E11.9 - DM (diabetes mellitus) SNOMED: 89056877 (5) Symptomatic anemia ICD Codes: D64.9 - Anemia, unspecified SNOMED: 812201569 Status: stable Status Narrative Discussed with Dr. Correia. Assessment/Plan hold GI procedures given acute SD anemia due to vaginal bleed iron deficiency, venofer bowel regime fu stool ob The patient was seen and examined at bedside and all new and available data was reviewed in the patients chart. I agree with the above findings, impression and plan. (Patient seen earlier today. Signature stamp does not reflect patient encounter time.). - Edin Correia MD Subjective Gastrointestinal/Abdominal: Reports: no symptoms Objective Last 24 Hour Vital Signs Date Time Temp Pulse Resp B/P (MAP) Pulse Ox O2 Delivery O2 Flow Rate FiO2 04/06/19 08:00 Nasal Cannula 2.0 04/06/19 08:00 97.6 72 18 145/85 (105) 97 04/06/19 07:55 75 04/06/19 04:00 97.8 70 18 138/80 (99) 98 04/06/19 04:00 Nasal Cannula 2.0 04/06/19 03:25 72 04/06/19 00:00 Nasal Cannula 2.0 04/06/19 00:00 98.0 70 20 133/80 (97) 98 04/05/19 23:40 68 04/05/19 21:00 72 16 143/87 (105) 100 04/05/19 20:09 73 04/05/19 20:00 98.6 71 16 149/88 (108) 100 04/05/19 20:00 Nasal Cannula 2.0 04/05/19 19:00 71 16 147/87 (107) 100 04/05/19 18:00 76 13 149/86 (107) 100 04/05/19 17:00 70 15 139/75 (96) 99 04/05/19 16:00 Nasal Cannula 2.0 04/05/19 16:00 98.5 70 17 141/83 (102) 100 04/05/19 15:43 68 04/05/19 15:00 75 18 145/87 (106) 100 04/05/19 15:00 67 15 139/83 (101) 100 04/05/19 14:00 75 18 145/87 (106) 100 04/05/19 13:00 75 16 141/95 (110) 100 04/05/19 12:00 98.5 73 17 145/89 (107) 100 04/05/19 12:00 Nasal Cannula 2.0 04/05/19 12:00 73 Intake and Output 04/05/19 04/06/19 19:00 07:00 Intake Total 1100 ml 1425 ml Balance 1100 ml 1425 ml Intake Oral 200 ml 600 ml IV Total 900 ml 825 ml # Voids 3 3 Laboratory Tests Test 04/05/19 13:30 04/06/19 04:15 Troponin I 4.686 ng/mL (0.000-0.056) 4.873 ng/mL (0.000-0.056) White Blood Count 6.0 K/UL (4.8-10.8) Red Blood Count 4.11 M/UL (4.20-5.40) L Hemoglobin 9.3 G/DL (12.0-16.0) L Hematocrit 30.5 % (37.0-47.0) L Mean Corpuscular Volume 74 FL (80-99) L Mean Corpuscular Hemoglobin 22.5 PG (27.0-31.0) L Mean Corpuscular Hemoglobin Concent 30.4 G/DL (32.0-36.0) L Red Cell Distribution Width 22.7 % (11.6-14.8) H Platelet Count 300 K/UL (150-450) Mean Platelet Volume 5.1 FL (6.5-10.1) L Neutrophils (%) (Auto) 68.9 % (45.0-75.0) Lymphocytes (%) (Auto) 20.0 % (20.0-45.0) Monocytes (%) (Auto) 6.3 % (1.0-10.0) Eosinophils (%) (Auto) 4.0 % (0.0-3.0) H Basophils (%) (Auto) 0.9 % (0.0-2.0) Sodium Level 140 MMOL/L (136-145) Potassium Level 3.8 MMOL/L (3.5-5.1) Chloride Level 107 MMOL/L (98-107) Carbon Dioxide Level 29 MMOL/L (21-32) Anion Gap 4 mmol/L (5-15) L Blood Urea Nitrogen 6 mg/dL (7-18) L Creatinine 0.7 MG/DL (0.55-1.30) Estimat Glomerular Filtration Rate > 60 mL/min (>60) Glucose Level 123 MG/DL (74-106) H Calcium Level 8.0 MG/DL (8.5-10.1) L Iron Level 15 ug/dL (50-175) L Total Iron Binding Capacity 256 ug/dL (250-450) Percent Iron Saturation 6 % (15-50) L Unsaturated Iron Binding 241 ug/dL (112-346) Ferritin 7 NG/ML (8-388) L Vitamin B12 Level 807 PG/ML (193-986) Folate 19.1 NG/ML (8.6-58.9) Height (Feet): 5 Height (Inches): 4.00 Weight (Pounds): 107 General Appearance: WD/WN, no apparent distress, alert Cardiovascular: normal rate Respiratory/Chest: normal breath sounds, no respiratory distress Abdominal Exam: normal bowel sounds, non tender, soft Extremities: normal range of motion, non-tender Sanjeev Early NP Apr 06, 2019 11:29
--- NOTE | 2019-04-06 11:52 | NUR ---
NURSE NOTES: SYLVESTER Early seen and examined patient. Per SENIOR ENVIRONMENTAL ENGINEER, cleared form gastrointestinal perspective. Noted.
[2019-04-06 12:00] VITALS: BP 142/86
--- NOTE | 2019-04-06 12:00 | NUR ---
NURSE NOTES: REC,D 43 YRS OLD FEMALE AWAKE AND ALERT ESCORTED BY BRANDI INTERMEDIATE PROJECT MANAGER OD ANGELA .REPORT RECEIVED FROM FROM [facility] AND TRANSFER BELONGING LIST DONE. WILL CONT TO MONITOR.
--- NOTE | 2019-04-06 12:04 | NUR ---
TRANSFER TO FLOOR: Patient transferred to Telemetry [id number], per Dr. Pang. Report given to MARLYS Iglesias. Belongings and medications given to MARLYS Iglesias. Family informed of transfer.
--- NOTE | 2019-04-06 12:23 | NUR ---
CASE MANAGEMENT: REVIEW 04/06/2019 SI:CP. ANEMIA. NSTEMI>> POSS FROM ANEMIA. S/P 2 UNITS PRBCs T 97.5 HR 70 RR 18 B/P 142/86 SATS 95% ON 2L/NC BUN 6 GLU 123 CA 8 TROPONIN 4.873 IS: IVF @ 75 mL/HR PROTONIX PO QD SYNTHROID PO QD INSULIN ASPART SUBQ AC/HS LEVEMIR SUBQ Q24H LIPITOR PO QHS ICU STATUS DCP: PATIENT TO BE DISCHARGED TO APPROPRIATE LOCATION ONCE MEDICALLY CLEARED. PLAN OF CARE: DC PLANNING
[2019-04-06 16:00] VITALS: BP 146/84
--- NOTE | 2019-04-06 17:00 | NUR ---
HAND-OFF: Report given to CROW FRANKEL.
[2019-04-06] MEDS ORDERED: 1/2 NS 1000ml IV ONE (17:04)
--- NOTE | 2019-04-06 17:10 | NUR ---
NURSE NOTES: Received report from Nancy FRANKEL. Pt sitting in bed. No c/o pain. On room air. No any signs of distress noted. IV site R wrist 22G running with 1/2NS @75ml/hr asymptomatic and patent. Right side EJ with SL asymptomatic and patient. No c/o pain. No signs of distress noted. Will continue to plan of care.
--- NOTE | 2019-04-06 19:30 | NUR ---
HAND-OFF: Report given to Selena FRANKEL. Pt remains stable.
--- NOTE | 2019-04-06 19:51 | NUR ---
NURSE NOTES: Received pt from Jones RN. Pt awake, alert, and c/o switching rooms d/t loud roomate (puerto rican speaking only). Bed in lowest position. Call light within reach. Will continue to monitor.
[2019-04-06 20:00] VITALS: BP 137/79
[2019-04-06] MEDS ORDERED: Iron Sucrose 100 MG in NS 55 ML IV SCH (21:00)
[2019-04-06] MEDS ORDERED: Levemir Flexpen SUBQ SCH (22:00)
[2019-04-07] VITALS: BP 109/71
[2019-04-07 04:00] VITALS: BP 124/70
[2019-04-07 04:50] LABS: EOSINOPHILS % (AUTO) 1.3 % (0.0-3.0); HEMOGLOBIN 9.8 G/DL (12.0-16.0); LYMPHOCYTES % (AUTO) 11.4 % (20.0-45.0); MEAN CORPUSCULAR VOLUME 74 FL (80-99); MONOCYTES % (AUTO) 5.1 % (1.0-10.0); NEUTROPHILS % (AUTO) 81.2 % (45.0-75.0); PLATELET COUNT 316 K/UL (150-450); RED BLOOD COUNT 4.31 M/UL (4.20-5.40); RED CELL DISTRIBUTION WIDTH 22.9 % (11.6-14.8); WHITE BLOOD COUNT 5.9 K/UL (4.8-10.8)
[2019-04-07 05:13] LABS: ANION GAP 5 mmol/L (5-15); BLOOD UREA NITROGEN 7 mg/dL (7-18); CALCIUM 8.4 MG/DL (8.5-10.1); CARBON DIOXIDE 26 MMOL/L (21-32); CHLORIDE 106 MMOL/L (98-107); CREATININE 0.7 MG/DL (0.55-1.30); POTASSIUM 3.1 MMOL/L (3.5-5.1); SODIUM 137 MMOL/L (136-145)
[2019-04-07] MEDS: Levothyroxine 25mcg tab ORAL SCH (06:00)
[2019-04-07] MEDS: NovoLOG Insulin Flexpen SUBQ SCH (06:03)
--- NOTE | 2019-04-07 07:59 | Discharge Instructions ---
Discharge Instructions Discharge Instructions Services at Discharge: day care Activity: resume normal activities Follow Up Orders Discharge and follow up with PCP and OBGYN 1 week For Congestive Heart Failure Reminder Report to your physician any weight gain of 5 pounds or more in one week. Shane Pang MD Apr 07, 2019 07:59
[2019-04-07 08:00] VITALS: BP 141/86
--- NOTE | 2019-04-07 08:05 | NUR ---
HAND-OFF: Report given to MARLYS Mart. Pt stable.
--- NOTE | 2019-04-07 08:23 | NUR ---
NURSE NOTES: Report received from MARLYS Walters. Observed in bed eating breakfast. Awake and verbally responsive. Denies pain at this time. No distress noted in room air. IVF running at prescribed rate. Bed in lowest position. Call light within reach. Will continue to monitor.
[2019-04-07] MEDS: Docusate 100mg cap ORAL SCH (08:57)
[2019-04-07] MEDS ORDERED: Sodium Chloride for KCL Premix x 2hrs IV SCH (09:00)
--- NOTE | 2019-04-07 10:03 | Hematology/Onc Progress Note ---
Assessment/Plan Assessment/Plan Called by Dr. Pang to see patient # Severe Anemia of iron deficiency - due very likely to vaginal bleed, has seen nurse obgyn in the past, may need further followup, in prior ferritin was <30, definitely requires iron --> defer OCP and as per nurse obgyn --> hgb 4.6-->6-->8.9-->9.8 --> IV Iron has been started 100mg iv daily x 5 days --> Gi has been consulted as well --> r/o gi bleed --> could also be due to hypothyrodism --> HAS been started on synthroid # Elevated Trop I, chest pain --> per cards unlikely pericarditis, won't treat --> could be related to anemia on presentation # Hypothyroid- on synthroid. --> adjusted per pcp # Vaginal bleeding, dysfunctional uterine bleeding # DVT propy with SCDs Greatly appreciate consultation. Subjective Constitutional: Denies: no symptoms, chills, fever, malaise, weakness, other HEENT: Denies: no symptoms, eye pain, blurred vision, tearing, double vision, ear pain, ear discharge, nose pain, nose congestion, throat pain, throat swelling, mouth pain, mouth swelling, other Cardiovascular: Denies: no symptoms, chest pain, edema, irregular heart rate, lightheadedness, palpitations, syncope, other Respiratory: Denies: no symptoms, cough, shortness of breath, SOB with excertion, SOB at rest, sputum, wheezing, other Gastrointestinal/Abdominal: Denies: no symptoms, abdomen distended, abdominal pain, black stools, tarry stools, blood in stool, constipated, diarrhea, difficulty swallowing, nausea, poor appetite, poor fluid intake, rectal bleeding , vomiting, other Genitourinary: Denies: no symptoms, burning, discharge, frequency, flank pain, hematuria, incontinence, pain, urgency, other Neurologic/Psychiatric: Denies: no symptoms, anxiety, depressed, emotional problems, headache, numbness, paresthesia, pre-existing deficit, seizure, tingling, tremors, weakness, other Endocrine: Denies: no symptoms, excessive sweating, flushing, intolerance to cold, intolerance to heat, increased hunger, increased thirst, increased urine, unexplained weight gain, unexplained weight loss, other Allergies: Coded Allergies: No Known Allergies (Verified , 09/02/07) Subjective 04/06: no fevers or chills, no bleeding reported, hgb currently 9.3 04/07: no events, potential dc soon Objective Objective Current Medications Medications (Trade) Dose Ordered Sig/Alycia Route PRN Reason Start Time Stop Time Status Last Admin Dose Admin Acetaminophen (Tylenol) 650 mg Q4H PRN ORAL Mild Pain (Pain Scale 1-3) 04/06/19 02:15 05/03/19 22:14 Atorvastatin Calcium (Lipitor) 10 mg QHS ORAL 04/06/19 21:00 05/04/19 20:59 04/06/19 20:58 Dextrose (Dextrose 50%) 25 ml Q30M PRN IV Hypoglycemia 04/05/19 22:45 05/03/19 22:14 Dextrose (Dextrose 50%) 50 ml Q30M PRN IV Hypoglycemia 04/05/19 22:45 05/03/19 22:14 Diphenhydramine HCl (Benadryl) 25 mg Q6H PRN ORAL Itching/Pruritis 04/06/19 04:15 05/03/19 22:14 Docusate Sodium (Colace) 100 mg EVERY 12 HOURS ORAL 04/06/19 09:00 05/04/19 08:59 04/07/19 08:57 Insulin Aspart (NovoLOG) BEFORE MEALS AND HS SUBQ 04/06/19 06:30 05/04/19 06:29 04/07/19 06:03 Insulin Detemir (Levemir) 8 units Q24H SUBQ 04/06/19 22:00 05/03/19 21:59 04/06/19 21:06 Iron Sucrose 100 mg/Sodium Chloride 60 ml @ 240 mls/hr BEDTIME IV 04/06/19 21:00 04/10/19 21:14 04/06/19 21:52 Levothyroxine Sodium (Synthroid) 25 mcg DAILY@0630 ORAL 04/06/19 06:30 05/06/19 06:29 04/07/19 06:00 Levothyroxine Sodium (Synthroid) 112 mcg DAILY@0630 ORAL 04/06/19 06:30 05/04/19 06:29 04/07/19 05:59 Morphine Sulfate (Morphine Sulfate) 1 mg Q4H PRN IVP PAIN 4-10 04/05/19 23:15 04/12/19 11:14 04/06/19 10:08 Nitroglycerin (Ntg) 0.4 mg Q5M PRN SL Prn Chest Pain 04/05/19 22:45 05/03/19 22:14 Ondansetron HCl (Zofran) 4 mg Q6H PRN IVP Nausea & Vomiting 04/06/19 04:15 05/03/19 22:14 Pantoprazole (Protonix) 40 mg DAILY ORAL 04/06/19 09:00 05/04/19 08:59 04/07/19 08:57 Potassium Chloride 100 ml @ 100 mls/hr Q1HR IVPB 04/07/19 09:00 04/07/19 10:59 04/07/19 09:00 Sodium Chloride 200 ml @ 100 mls/hr Q2H IV 04/07/19 09:00 04/07/19 10:59 04/07/19 08:58 Last 24 Hour Vital Signs Date Time Temp Pulse Resp B/P (MAP) Pulse Ox O2 Delivery O2 Flow Rate FiO2 04/07/19 08:00 Room Air 04/07/19 08:00 97.5 78 20 141/86 (104) 99 04/07/19 04:00 Nasal Cannula 2.0 04/07/19 04:00 98.2 62 18 124/70 (88) 97 04/07/19 04:00 65 04/07/19 00:00 Nasal Cannula 2.0 04/07/19 00:00 98.2 76 18 109/71 (84) 95 04/07/19 00:00 72 04/06/19 20:00 98.4 73 18 137/79 (98) 99 04/06/19 20:00 69 04/06/19 20:00 Nasal Cannula 2.0 04/06/19 16:00 76 04/06/19 16:00 97.8 75 22 146/84 (104) 98 04/06/19 16:00 Nasal Cannula 2.0 04/06/19 12:00 97.5 70 18 142/86 (104) 95 04/06/19 12:00 76 04/06/19 12:00 Nasal Cannula 2.0 04/06/19 08:00 Nasal Cannula 2.0 04/06/19 08:00 97.6 72 18 145/85 (105) 97 04/06/19 07:55 75 04/06/19 04:00 97.8 70 18 138/80 (99) 98 04/06/19 04:00 Nasal Cannula 2.0 04/06/19 03:25 72 04/06/19 00:00 Nasal Cannula 2.0 04/06/19 00:00 98.0 70 20 133/80 (97) 98 04/05/19 23:40 68 04/05/19 21:00 72 16 143/87 (105) 100 04/05/19 20:09 73 04/05/19 20:00 98.6 71 16 149/88 (108) 100 04/05/19 20:00 Nasal Cannula 2.0 04/05/19 19:00 71 16 147/87 (107) 100 04/05/19 18:00 76 13 149/86 (107) 100 04/05/19 17:00 70 15 139/75 (96) 99 04/05/19 16:00 Nasal Cannula 2.0 04/05/19 16:00 98.5 70 17 141/83 (102) 100 04/05/19 15:43 68 04/05/19 15:00 75 18 145/87 (106) 100 04/05/19 15:00 67 15 139/83 (101) 100 04/05/19 14:00 75 18 145/87 (106) 100 04/05/19 13:00 75 16 141/95 (110) 100 04/05/19 12:00 98.5 73 17 145/89 (107) 100 04/05/19 12:00 Nasal Cannula 2.0 04/05/19 12:00 73 04/05/19 11:00 75 17 143/86 (105) 100 Intake and Output 04/06/19 04/07/19 19:00 07:00 # Voids 2 Labs Test 04/05/19 04:41 04/05/19 13:30 04/06/19 04:15 04/07/19 04:10 White Blood Count 5.4 K/UL (4.8-10.8) 6.0 K/UL (4.8-10.8) 5.9 K/UL (4.8-10.8) Red Blood Count 3.95 M/UL (4.20-5.40) 4.11 M/UL (4.20-5.40) 4.31 M/UL (4.20-5.40) Hemoglobin 9.0 G/DL (12.0-16.0) 9.3 G/DL (12.0-16.0) 9.8 G/DL (12.0-16.0) Hematocrit 29.4 % (37.0-47.0) 30.5 % (37.0-47.0) 32.0 % (37.0-47.0) Mean Corpuscular Volume 75 FL (80-99) 74 FL (80-99) 74 FL (80-99) Mean Corpuscular Hemoglobin 22.9 PG (27.0-31.0) 22.5 PG (27.0-31.0) 22.8 PG (27.0-31.0) Mean Corpuscular Hemoglobin Concent 30.7 G/DL (32.0-36.0) 30.4 G/DL (32.0-36.0) 30.7 G/DL (32.0-36.0) Red Cell Distribution Width 23.2 % (11.6-14.8) 22.7 % (11.6-14.8) 22.9 % (11.6-14.8) Platelet Count 312 K/UL (150-450) 300 K/UL (150-450) 316 K/UL (150-450) Mean Platelet Volume 6.1 FL (6.5-10.1) 5.1 FL (6.5-10.1) 5.8 FL (6.5-10.1) Neutrophils (%) (Auto) 68.4 % (45.0-75.0) 68.9 % (45.0-75.0) 81.2 % (45.0-75.0) Lymphocytes (%) (Auto) 24.0 % (20.0-45.0) 20.0 % (20.0-45.0) 11.4 % (20.0-45.0) Monocytes (%) (Auto) 2.7 % (1.0-10.0) 6.3 % (1.0-10.0) 5.1 % (1.0-10.0) Eosinophils (%) (Auto) 4.1 % (0.0-3.0) 4.0 % (0.0-3.0) 1.3 % (0.0-3.0) Basophils (%) (Auto) 0.8 % (0.0-2.0) 0.9 % (0.0-2.0) 1.0 % (0.0-2.0) Sodium Level 142 MMOL/L (136-145) 140 MMOL/L (136-145) 137 MMOL/L (136-145) Potassium Level 4.3 MMOL/L (3.5-5.1) 3.8 MMOL/L (3.5-5.1) 3.1 MMOL/L (3.5-5.1) Chloride Level 111 MMOL/L (98-107) 107 MMOL/L (98-107) 106 MMOL/L (98-107) Carbon Dioxide Level 26 MMOL/L (21-32) 29 MMOL/L (21-32) 26 MMOL/L (21-32) Anion Gap 6 mmol/L (5-15) 4 mmol/L (5-15) 5 mmol/L (5-15) Blood Urea Nitrogen 8 mg/dL (7-18) 6 mg/dL (7-18) 7 mg/dL (7-18) Creatinine 0.8 MG/DL (0.55-1.30) 0.7 MG/DL (0.55-1.30) 0.7 MG/DL (0.55-1.30) Estimat Glomerular Filtration Rate > 60 mL/min (>60) > 60 mL/min (>60) > 60 mL/min (>60) Glucose Level 56 MG/DL (74-106) 123 MG/DL (74-106) 46 MG/DL (74-106) Calcium Level 8.0 MG/DL (8.5-10.1) 8.0 MG/DL (8.5-10.1) 8.4 MG/DL (8.5-10.1) Troponin I 6.120 ng/mL (0.000-0.056) 4.686 ng/mL (0.000-0.056) 4.873 ng/mL (0.000-0.056) 4.609 ng/mL (0.000-0.056) Iron Level 15 ug/dL (50-175) Total Iron Binding Capacity 256 ug/dL (250-450) Percent Iron Saturation 6 % (15-50) Unsaturated Iron Binding 241 ug/dL (112-346) Ferritin 7 NG/ML (8-388) Vitamin B12 Level 807 PG/ML (193-986) Folate 19.1 NG/ML (8.6-58.9) Height (Feet): 5 Height (Inches): 4.00 Weight (Pounds): 137 Objective GeN: NAD PulM: CTAB, no cwr CV: RRR, no mgr Abd: soft, nt, nd Ext: no cce Maverick Welch MD Apr 07, 2019 10:03
--- NOTE | 2019-04-07 10:50 | GI Progress Note ---
Assessment/Plan Problems: (1) Iron deficiency ICD Codes: E61.1 - Iron deficiency SNOMED: 44637632 (2) Anemia ICD Codes: D64.9 - Anemia, unspecified SNOMED: 103823510 (3) Vaginal bleeding ICD Codes: N89.8 - Other specified noninflammatory disorders of vagina SNOMED: 661817142 (4) DM (diabetes mellitus) ICD Codes: E11.9 - DM (diabetes mellitus) SNOMED: 91016568 (5) Symptomatic anemia ICD Codes: D64.9 - Anemia, unspecified SNOMED: 381403191 Status: stable, progressing Status Narrative Discussed with Dr. Correia. Assessment/Plan hold GI procedures given acute KS anemia due to vaginal bleed iron deficiency, venofer bowel regime fu stool ob adv diet The patient was seen and examined at bedside and all new and available data was reviewed in the patients chart. I agree with the above findings, impression and plan. (Patient seen earlier today. Signature stamp does not reflect patient encounter time.). - Edin Correia MD Subjective Gastrointestinal/Abdominal: Reports: no symptoms Objective Last 24 Hour Vital Signs Date Time Temp Pulse Resp B/P (MAP) Pulse Ox O2 Delivery O2 Flow Rate FiO2 04/07/19 08:00 Room Air 04/07/19 08:00 78 04/07/19 08:00 97.5 78 20 141/86 (104) 99 04/07/19 04:00 Nasal Cannula 2.0 04/07/19 04:00 98.2 62 18 124/70 (88) 97 04/07/19 04:00 65 04/07/19 00:00 Nasal Cannula 2.0 04/07/19 00:00 98.2 76 18 109/71 (84) 95 04/07/19 00:00 72 04/06/19 20:00 98.4 73 18 137/79 (98) 99 04/06/19 20:00 69 04/06/19 20:00 Nasal Cannula 2.0 04/06/19 16:00 76 04/06/19 16:00 97.8 75 22 146/84 (104) 98 04/06/19 16:00 Nasal Cannula 2.0 04/06/19 12:00 97.5 70 18 142/86 (104) 95 04/06/19 12:00 76 04/06/19 12:00 Nasal Cannula 2.0 Intake and Output 04/06/19 04/07/19 19:00 07:00 # Voids 2 Laboratory Tests Test 04/07/19 04:10 White Blood Count 5.9 K/UL (4.8-10.8) Red Blood Count 4.31 M/UL (4.20-5.40) Hemoglobin 9.8 G/DL (12.0-16.0) L Hematocrit 32.0 % (37.0-47.0) L Mean Corpuscular Volume 74 FL (80-99) L Mean Corpuscular Hemoglobin 22.8 PG (27.0-31.0) L Mean Corpuscular Hemoglobin Concent 30.7 G/DL (32.0-36.0) L Red Cell Distribution Width 22.9 % (11.6-14.8) H Platelet Count 316 K/UL (150-450) Mean Platelet Volume 5.8 FL (6.5-10.1) L Neutrophils (%) (Auto) 81.2 % (45.0-75.0) H Lymphocytes (%) (Auto) 11.4 % (20.0-45.0) L Monocytes (%) (Auto) 5.1 % (1.0-10.0) Eosinophils (%) (Auto) 1.3 % (0.0-3.0) Basophils (%) (Auto) 1.0 % (0.0-2.0) Sodium Level 137 MMOL/L (136-145) Potassium Level 3.1 MMOL/L (3.5-5.1) L Chloride Level 106 MMOL/L (98-107) Carbon Dioxide Level 26 MMOL/L (21-32) Anion Gap 5 mmol/L (5-15) Blood Urea Nitrogen 7 mg/dL (7-18) Creatinine 0.7 MG/DL (0.55-1.30) Estimat Glomerular Filtration Rate > 60 mL/min (>60) Glucose Level 46 MG/DL (74-106) L Calcium Level 8.4 MG/DL (8.5-10.1) L Troponin I 4.609 ng/mL (0.000-0.056) Height (Feet): 5 Height (Inches): 4.00 Weight (Pounds): 137 General Appearance: WD/WN, no apparent distress, alert Cardiovascular: normal rate Respiratory/Chest: normal breath sounds, no respiratory distress Abdominal Exam: normal bowel sounds, non tender, soft Extremities: normal range of motion, non-tender Sanjeev Early NP Apr 07, 2019 10:50
[2019-04-07] MEDS ORDERED: 1/2 NS 1000ml IV ONE (10:59)
--- NOTE | 2019-04-07 11:00 | NUR ---
NURSE NOTES: Patient discharged to home accompanied with family via private vehicle. Pt. is alert and oriented x 4 and verbally responsive. Denies pain at this time. No distress noted in room air. Belongings checked with patient. divisional human resources director, IV site, and ID band removed prior to discharge. All discharge instructions given to patient with verbalized understanding. Pt. is ambulatory with steady gait. Escorted the patient to down stairs. Stable condition.
--- NOTE | 2019-04-07 12:59 | Discharge Summary ---
Discharge Summary Discharge Summary _ DATE OF ADMISSION: 04/03/2019 DATE OF DISCHARGE: 04/07/2019 DISCHARGED BY: Dr. Ghada Palmer CONSULTANTS: Dr. Edin Hirsch BRIEF HOSPITAL COURSE: Patient is a 43-year-old female, who presented to ED due to complaints of left- sided chest pain and vaginal bleeding. She has medical history significant for diabetes, hypothyroidism, malnutrition, severe anemia and bilateral pleural effusions. On evaluation at the ED, blood pressure was 84/50, heart rate 76. She was given IV hydration. Blood work did not show any leukocytosis. Hemoglobin was 4.6 and hematocrit 16. Sodium 134. Potassium 4.4. Chloride 101. Glucose was 257. LFTs were normal. Troponin was elevated to 4.2. Urinalysis showed +1 leukocyte esterase, 0-2 urine RBC, 2-4 urine WBC. Urine hCG negative. TSH was elevated. She was given aspirin. EKG showed normal sinus rhythm with no acute changes. Chest x-ray did not show any acute process. Pelvic ultrasound did not show any definite acute abnormality. There was nonspecific myometrial heterogeneity, endometrium was 15 mm thick. She was then admitted to ICU for severe anemia, vaginal bleeding, chest pain and elevated troponin and hypothyroidism. She was started on blood transfusion. Basketball Scout was consulted. Cardiac enzymes were monitored. EKG did not show any evidence of ischemia. Unable to give aspirin/heparin due to vaginal bleeding. She was given PPI. She was given bowel regimen. SPLICING MACHINE OPERATOR evaluation was done. There was no active bleeding seen. Ultrasound was unremarkable with exception of thickened endometrial lining. [place] [facility] [place] both diagnostic and therapeutic purposes. She was instructed to follow-up with gynecology multiple times in the past, but failed to adhere to medical recommendations. TSH was 39. Manager Foreign was consulted. Blood glucose was out of control. Patient had elevated TSH due to noncompliance with levothyroxine. Levothyroxine dose was adjusted. Unable to give IV levothyroxine due to elevated troponin. She was given Levemir and NovoLog. She was recommended to have recheck of thyroid function in 2 weeks. She completed units packed RBC blood transfusion. Anemia work-up showed sufficient iron with ferritin level of 7. She was given IV iron. Troponin elevation/NSTEMI likely from anemia. Transthoracic echocardiogram showed left ventricular ejection fraction estimated to be 45 to 50%. There was no evidence of left ventricular hypertrophy. Small posterior pericardial effusion. PA pressure 52. There was no sign of fluid overload clinically. Troponin reached a peak, and was downtrending. She had elevated ESR and CRP however, clinically did not present for pericarditis. Patient did not present with symptoms for pericarditis. Social service was consulted to aid patient with outpatient follow-up. Patient was referred to an outpatient clinic and was set up an appointment with OB gynecology on April 21 at 12:30 PM. Hemoglobin was stable post blood transfusion. Vital signs were stable. Patient was educated on need on compliance with medical follow-up and medications. She was eventually discharged home. FINAL DIAGNOSES: Severe anemia due to acute blood loss secondary to reported vaginal bleed Severe hypothyroidism due to noncompliance NSTEMI likely from anemia Iron deficiency anemia Elevated ESR/CRP Diabetes mellitus [id number] DISPOSITION: Patient was discharged home. DISCHARGE MEDICATIONS: Refer to Discharge Medication List. DISCHARGE INSTRUCTIONS: Follow-up in a week. Follow-up with scheduled appointment with OB gynecology. I have been assigned to complete a discharge summary on this account, I was not involved with the patient's management.--SYLVESTER Brown Jacqueline Robles NP Apr 07, 2019 12:59
== END 2019-04-07 11:00 | disposition home or self-care (01) | DRG 663 ==
LOC: EMR 20:10 → ICU 20:43 → EDBEDREQSVC 21:23 → EDBEDREQ 21:23 → 2W 04-05 22:30 → 2E 04-06 12:06
PROC: 30233N1 Transfusion of Nonautologous Red Blood Cells into Peripheral Vein, Percutaneous Approach (ICD-10-PCS; principal; 2019-04-03)
DX: D62 Acute posthemorrhagic anemia (principal); I21.4 Non-ST elevation (NSTEMI) myocardial infarction; E46 Unspecified protein-calorie malnutrition; I24.9 Acute ischemic heart disease, unspecified; Z68.1 Body mass index [BMI] 19.9 or less, adult; E03.9 Hypothyroidism, unspecified; N93.8 Other specified abnormal uterine and vaginal bleeding; I10 Essential (primary) hypertension; E78.00 Pure hypercholesterolemia, unspecified; Z79.4 Long term (current) use of insulin; E11.65 Type 2 diabetes mellitus with hyperglycemia
CPT/HCPCS: 36415; 71045; 76830; 76856; 80048; 80053; 80061; 81003; 81025; 82607; 82728; 82746; 82962; 83540; 83550; 83690; 84439; 84443; 84480; 84481; 84484; 85007; 85025; 85060; 85610; 85651; 85730; 86140; 86850; 86880; 86900; 86901; 86920; 87081; 93005; 93306; 96361; 96374; 96375; 99291; J1815; J2405; S5561

== ENCOUNTER 2019-04-29 20:39 | Inpatient (IN) | payer MEDICAID ==
[~2019-04-29] VITALS: Ht 152.4 cm; Wt 56.9 kg
[2019-04-29] VITALS (9 sets, daily range): BP systolic 75–96; BP diastolic 41–62
--- NOTE | 2019-04-29 20:50 | NUR ---
ED Nurse Note: pt ambulated to ed c/o abd pain with vaginal bleeding for x 8 days. pt is pale and diaphorectic. pt place in gown. iv site established labs will be sent to lab. pt placed on monitor. bed palced in lowest position x 2 siderails
--- NOTE | 2019-04-29 21:00 | NUR ---
ED Nurse Note: both sons and at bedside
[2019-04-29] MEDS ORDERED: Morphine Sulfate 2mg/ml Inj(IV/IM USE ONLY) IVP ONE (21:15)
[2019-04-29 21:26] LABS: HEMATOCRIT 17.2 % (37.0-47.0); MEAN CORPUSCULAR VOLUME 77 FL (80-99); PLATELET COUNT 298 K/UL (150-450); RED BLOOD COUNT 2.24 M/UL (4.20-5.40); RED CELL DISTRIBUTION WIDTH 23.6 % (11.6-14.8); WHITE BLOOD COUNT 6.9 K/UL (4.8-10.8)
[2019-04-29 21:28] LABS: ANION GAP 7 mmol/L (5-15); BLOOD UREA NITROGEN 12 mg/dL (7-18); CALCIUM 7.9 MG/DL (8.5-10.1); CARBON DIOXIDE 26 MMOL/L (21-32); CHLORIDE 104 MMOL/L (98-107); POTASSIUM 4.3 MMOL/L (3.5-5.1); SODIUM 137 MMOL/L (136-145)
[2019-04-29 21:31] LABS: BILIRUBIN, URINE NEGATIVE (NEGATIVE); GLUCOSE, URINE (UA) 2+ (NEGATIVE); KETONES,URINE 1+ (NEGATIVE); LEUKOCYTE ESTERASE ,URINE 2+ (NEGATIVE); NITRITE,URINE NEGATIVE (NEGATIVE); PH,URINE 5 (4.5-8.0); PROTEIN,URINE 2+ (NEGATIVE); UROBILINOGEN,URINE 1 MG/DL (0.0-1.0)
[2019-04-29 21:33] LABS: ALANINE AMINOTRANSFERASE 23 U/L (12-78); ALBUMIN 2.7 G/DL (3.4-5.0); ALBUMIN/GLOBULIN RATIO 0.8 (1.0-2.7); ALKALINE PHOSPHATASE 80 U/L (46-116); ASPARTATE AMINO TRANSFERASE 18 U/L (15-37); BILIRUBIN,TOTAL 0.2 MG/DL (0.2-1.0)
[2019-04-29 21:38] LABS: INR 0.9 (0.9-1.1)
[2019-04-29 21:48] LABS: HEMOGLOBIN 5.4 G/DL (12.0-16.0)
[2019-04-29 21:49] LABS: COLOR,URINE YELLOW
[2019-04-29 21:52] LABS: APPEARANCE,URINE CLOUDY
--- NOTE | 2019-04-29 22:20 | NUR ---
ED Nurse Note: blood transfusion initiated
--- NOTE | 2019-04-29 22:26 | Emergency Room Report ---
History of Present Illness General Chief Complaint: Vaginal Source: Patient Present Illness HPI 44-year-old female presents ED for evaluation. Patient complaining of vaginal bleeding and abdominal pain x8 days. States she feels weak. Was admitted here recently for similar complaint and needed a blood transfusion. States that she has not yet seen an RADIOLOGY SCHEDULER since her discharge. Denies being . Pain is cramping, 7 out of 10, nonradiating. No other aggravating relieving factors. Denies any other associated symptoms Allergies: Coded Allergies: No Known Allergies (Verified , 09/02/07) Patient History Past Medical History: DM, HTN, seizures Past Surgical History: none Pertinent Family History: none Social History: Denies: smoking, alcohol use, drug use Last Menstrual Period: pt currently on her menstruation Now: No : 8 Para: 5 Immunizations: UTD Reviewed Nursing Documentation: PMH: Agreed; PSxH: Agreed Nursing Documentation-PMH Past Medical History: No History, Except For Hx Cardiac Problems: No - Hypothyroidism, Anemia, Uterine fibroid Hx Hypertension: Yes Hx Pacemaker: No Hx Asthma: No Hx COPD: No Hx Diabetes: Yes - IDDM Hx Cancer: No Hx Gastrointestinal Problems: No Hx Dialysis: No Hx Neurological Problems: No Hx Cerebrovascular Accident: No Hx Transient Ischemic Attacks: No Hx Dementia: No Hx Alzheimer's Disease: No Hx Parkinson's Disease: No Hx Meningitis: No Hx Encephalitis: No Hx Seizures: Yes Hx Epilepsy: No Hx Multiple Sclerosis: No Hx Cerebral Palsy: No Hx Amyotrophic Lat Sclerosis: No Hx Guillian-Marion Syndrome: No Hx Paralysis: No Hx Peripheral Neuropathy: No Hx Spinal Cord Injury: No Hx Head Trauma: Yes - Fell in the shower and hit her head one day prior to admission Hx Traumatic Brain Injury: No Hx Memory Loss: No Hx Concentration Difficulty: Yes Hx Speech Problem: No Hx Tremors: No Hx Vertigo: No Hx Dizziness: Yes Hx Syncope: No Hx Headaches: Yes Hx Aphasia: No Hx Dysphasia: No Hx Numbness: No Hx Weakness: No Hx Fatigue: Yes Hx Neurologic Surgery: No Hx Brain Shunt: No Review of Systems All Other Systems: negative except mentioned in HPI Physical Exam Vital Signs Date Time Temp Pulse Resp B/P (MAP) Pulse Ox O2 Delivery O2 Flow Rate FiO2 04/29/19 20:44 98.6 88 18 90/59 (69) 100 Room Air Sp02 EP Interpretation: reviewed, normal General Appearance: no apparent distress, alert, GCS 15, non-toxic Head: normocephalic, atraumatic Eyes: bilateral eye normal inspection, bilateral eye PERRL ENT: hearing grossly normal, normal pharynx, no angioedema, normal voice Neck: full range of motion, supple/symm/no masses Respiratory: chest non-tender, lungs clear, normal breath sounds, speaking full sentences Cardiovascular #1: regular rate, rhythm, no edema Cardiovascular #2: 2+ carotid (R), 2+ carotid (L), 2+ radial (R), 2+ radial (L) , 2+ dorsalis pedis (R), 2+ dorsalis pedis (L) Gastrointestinal: normal bowel sounds, soft, non-distended, no guarding, no rebound, tenderness Rectal: deferred Genitourinary: normal inspection, no CVA tenderness Musculoskeletal: back normal, gait/station normal, normal range of motion, non- tender Neurologic: alert, oriented x3, responsive, motor strength/tone normal, sensory intact, speech normal Psychiatric: judgement/insight normal, memory normal, mood/affect normal, no suicidal/homicidal ideation Reflexes: 3+ bicep (R), 3+ bicep (L), 3+ tricep (R), 3+ tricep (L), 3+ knee (R) , 3+ knee (L) Lymphatic: no adenopathy Procedures Critical Care Time Critical Care Time i. I feel this is a highly complex case requiring extensive working including EKG/Rhythm strip, Xray/CT/US, Blood/urine lab work, repeat exams while in ED, and administration of strong opiates/narcotics for pain control, admission to hospital or close patient follow up. Total time: 50 min bedside evaluation and treatment excludes procedures (EKG). Reason for critical care: anemia, vaginal bleeding, hypotension Possible complications: hypotension, hypertension, AK, shock, arrhythmias, metabolic acidosis, end organ damage, respiratory failure. Interventions: labs, IVFs, PRBCs Course: Presenting with vaginal bleeding, hypotensive. Hemoglobin 5.4. Recent hospitalization shows thickened endometrium no evidence of fibroids. Placed in Trendelenburg. IV fluid boluses given. BP slowly improving. 2 units PRBC started. BP improving after transfusion. Consultations: nursing staff, EMS, family Performed by: Dr Bower Tolerated well condition = serious j. because of unstable vital signs this patient had a condition that could potentially threaten life or limb. I feel this is a critical patient who required my full attention while patient was considered critical. Total Critical Care Time excluding procedures was greater than 50 minutes Medical Decision Making Diagnostic Impression: Primary Impression: DUB (dysfunctional uterine bleeding) Additional Impressions: Hypotension Qualified Codes: I95.9 - Hypotension, unspecified Anemia Qualified Codes: D64.9 - Anemia, unspecified ER Course Hospital Course 44 yo F presents to ED c/o vaginal bleeding, weakness. Differential diagnoses include: anemia requiring transfusion, microcytic anemia , macrocytic anemia, heavy blood loss Clinical course Patient placed on stretcher. After initial history and physical I ordered labs , IVFs, pain meds Labs- hemoglobin 5.4. Electrolytes okay, no leukocytosis EKG - NSR, no acute ischemic changes interpreted by me The patient was admitted in March for similar presentation. Had full work-up including OB consult. Ultrasound showed thickened endometrium. No evidence of fibroids. Patient placed in Trendelenburg with IV fluid boluses. Remains hypotensive. Blood transfusion started in ED with BP improving. patient will be admitte to Dr Vasquez's service for further care and support Diagnosis - DUB, hypotension, anemia Admitted to telemetry in serious condition Labs Test 04/29/19 21:00 White Blood Count 6.9 K/UL (4.8-10.8) Red Blood Count 2.24 M/UL (4.20-5.40) Hemoglobin 5.4 G/DL (12.0-16.0) Hematocrit 17.2 % (37.0-47.0) Mean Corpuscular Volume 77 FL (80-99) Mean Corpuscular Hemoglobin 24.4 PG (27.0-31.0) Mean Corpuscular Hemoglobin Concent 31.7 G/DL (32.0-36.0) Red Cell Distribution Width 23.6 % (11.6-14.8) Platelet Count 298 K/UL (150-450) Mean Platelet Volume 5.9 FL (6.5-10.1) Neutrophils (%) (Auto) % (45.0-75.0) Lymphocytes (%) (Auto) % (20.0-45.0) Monocytes (%) (Auto) % (1.0-10.0) Eosinophils (%) (Auto) % (0.0-3.0) Basophils (%) (Auto) % (0.0-2.0) Prothrombin Time 9.8 SEC (9.30-11.50) Prothromb Time International Ratio 0.9 (0.9-1.1) Activated Partial Thromboplast Time 26 SEC (23-33) Urine Color Yellow Urine Appearance Cloudy Urine pH 5 (4.5-8.0) Urine Specific Central 1.015 (1.005-1.035) Urine Protein 2+ (NEGATIVE) Urine Glucose (UA) 2+ (NEGATIVE) Urine Ketones 1+ (NEGATIVE) Urine Blood 5+ (NEGATIVE) Urine Nitrite Negative (NEGATIVE) Urine Bilirubin Negative (NEGATIVE) Urine Urobilinogen 1 MG/DL (0.0-1.0) Urine Leukocyte Esterase 2+ (NEGATIVE) Urine RBC Tntc /HPF (0 - 2) Urine WBC 10-15 /HPF (0 - 2) Urine Squamous Epithelial Cells Few /LPF (NONE/OCC) Urine Bacteria Few /HPF (NONE) Urine Mucus Few /LPF (NONE/OCC) Urine HCG, Qualitative Negative (NEGATIVE) Sodium Level 137 MMOL/L (136-145) Potassium Level 4.3 MMOL/L (3.5-5.1) Chloride Level 104 MMOL/L (98-107) Carbon Dioxide Level 26 MMOL/L (21-32) Anion Gap 7 mmol/L (5-15) Blood Urea Nitrogen 12 mg/dL (7-18) Creatinine 1.0 MG/DL (0.55-1.30) Estimat Glomerular Filtration Rate > 60 mL/min (>60) Glucose Level 140 MG/DL (74-106) Calcium Level 7.9 MG/DL (8.5-10.1) Total Bilirubin 0.2 MG/DL (0.2-1.0) Aspartate Amino Transf (AST/SGOT) 18 U/L (15-37) Alanine Aminotransferase (ALT/SGPT) 23 U/L (12-78) Alkaline Phosphatase 80 U/L (46-116) Total Protein 6.2 G/DL (6.4-8.2) Albumin 2.7 G/DL (3.4-5.0) Globulin 3.5 g/dL Albumin/Globulin Ratio 0.8 (1.0-2.7) Hematology Test 04/29/19 21:00 White Blood Count 6.9 K/UL (4.8-10.8) Red Blood Count 2.24 M/UL (4.20-5.40) L Hemoglobin 5.4 G/DL (12.0-16.0) *L Hematocrit 17.2 % (37.0-47.0) L Mean Corpuscular Volume 77 FL (80-99) L Mean Corpuscular Hemoglobin 24.4 PG (27.0-31.0) L Mean Corpuscular Hemoglobin Concent 31.7 G/DL (32.0-36.0) L Red Cell Distribution Width 23.6 % (11.6-14.8) H Platelet Count 298 K/UL (150-450) Mean Platelet Volume 5.9 FL (6.5-10.1) L Neutrophils (%) (Auto) % (45.0-75.0) Lymphocytes (%) (Auto) % (20.0-45.0) Monocytes (%) (Auto) % (1.0-10.0) Eosinophils (%) (Auto) % (0.0-3.0) Basophils (%) (Auto) % (0.0-2.0) Coagulation Test 04/29/19 21:00 Prothrombin Time 9.8 SEC (9.30-11.50) Prothromb Time International Ratio 0.9 (0.9-1.1) Activated Partial Thromboplast Time 26 SEC (23-33) Chemistry Test 04/29/19 21:00 Sodium Level 137 MMOL/L (136-145) Potassium Level 4.3 MMOL/L (3.5-5.1) Chloride Level 104 MMOL/L (98-107) Carbon Dioxide Level 26 MMOL/L (21-32) Anion Gap 7 mmol/L (5-15) Blood Urea Nitrogen 12 mg/dL (7-18) Creatinine 1.0 MG/DL (0.55-1.30) Estimat Glomerular Filtration Rate > 60 mL/min (>60) Glucose Level 140 MG/DL (74-106) H Calcium Level 7.9 MG/DL (8.5-10.1) L Total Bilirubin 0.2 MG/DL (0.2-1.0) Aspartate Amino Transf (AST/SGOT) 18 U/L (15-37) Alanine Aminotransferase (ALT/SGPT) 23 U/L (12-78) Alkaline Phosphatase 80 U/L (46-116) Total Protein 6.2 G/DL (6.4-8.2) L Albumin 2.7 G/DL (3.4-5.0) L Globulin 3.5 g/dL Albumin/Globulin Ratio 0.8 (1.0-2.7) L EKG Diagnostic Results Rate: normal Rhythm: NSR ST Segments: no acute changes ASA given to the pt in ED: No Rhythm Strip Diag. Results EP Interpretation: yes Rhythm: NSR, no PVC's, no ectopy Last Vital Signs Date Time Temp Pulse Resp B/P (MAP) Pulse Ox O2 Delivery O2 Flow Rate FiO2 04/29/19 21:46 98.6 04/29/19 20:50 75 14 85/45 100 Room Air Status: improved Disposition: ADMITTED INPATIENT Condition: Serious Referrals: NOT CHOSEN IPA/,REFERRING (PCP) Sal Bower MD Apr 29, 2019 22:26
--- NOTE | 2019-04-29 22:35 | NUR ---
ED Nurse Note: pt tolerating blood transfusino well. pt skin color is pink, no signs of fever or chills. pt saturating at 100% on room air. vss. will continue to monitor
[2019-04-29] MEDS ORDERED: Milk of Magnesia 30ml Ud ORAL PRN (22:45)
[2019-04-29] MEDS ORDERED: Zolpidem 5mg tab ORAL PRN (22:45)
--- NOTE | 2019-04-29 23:00 | NUR ---
ED Nurse Note: - Ladarius : [phone]
--- NOTE | 2019-04-29 23:16 | NUR ---
ED Nurse Note: telephone report given to margret byers
--- NOTE | 2019-04-29 23:40 | NUR ---
ED Nurse Note: pt sent up to unit with margret garber and yfn gaxiola. pt was placed on security monitor. pt shows no acute signs of distress. pt is aox4, vss, pt denies at the moment. all belongings have been sent up with pt. was called and notified about room placement.
--- NOTE | 2019-04-29 23:45 | NUR ---
NURSE NOTES: Received report from MARLYS Dickey in ED. Patient arrived on the unit on a gurney with 1st PRBC hanging on the IV pole, 1/3 of left to be infused. Patient's vital signs: 93/62, RR20 SatO2 100% HR 94 Temp. 97.9. Patient was able to move herself from gurney to the bed. Patient breathing unlabored and evenly without distress, discomfort, or sob. No complaints of pain at this time. Oriented to the room, patient verbalized understanding. IV sites noted on right forearm, right wrist, and left forearm intact, clean, and dry. Belongings confirmed with patient at the bedside. Bed placed at the lowest with brakes on and side rails up x 2 for safety. Patient placed on the [address] recording monitor per protocol. Call light placed with reach. Will continue to monitor and provide care as ordered.
--- NOTE | 2019-04-30 | NUR ---
NURSE NOTES: Spoke with Rylee Vasquez MD. regarding patients Transfusion order. Patient received 1 out of 2 bags of PRBC in the ED, continue second bag on TELE floor per MD. Will continue to monitor.
[2019-04-30] MEDS ORDERED: Morphine Sulfate 2mg/ml Inj(IV/IM USE ONLY) IVP PRN (00:15)
[2019-04-30] MEDS: Morphine Sulfate 4mg/ml Inj (IV USE ONLY) IVP PRN ×3 (00:25→20:30)
--- NOTE | 2019-04-30 01:30 | NUR ---
NURSE NOTES: Second bag of PRBC infusing, monitored for 15 mins after with no A/R noted; VS within patient's baseline. Will continue to monitor.
--- NOTE | 2019-04-30 03:36 | NUR ---
NURSE NOTES: Spoke with Rylee Vasquez MD. regarding patient's complain of N&V. Vomited X1. New orders received and carried out. Will continue to monitor.
--- NOTE | 2019-04-30 03:54 | NUR ---
NURSE NOTES: Finished second bag or PRBC, no A/R noted. VS within baseline. Will continue to monitor.
[2019-04-30 04:00] VITALS: BP 90/59
[2019-04-30] MEDS: NovoLOG Insulin Flexpen SUBQ SCH ×4 (06:06→20:39)
[2019-04-30] MEDS: Levothyroxine 125mcg tab ORAL SCH (06:09)
--- NOTE | 2019-04-30 07:52 | NUR ---
NURSE NOTES: Received new orders from Rylee Vasquez MD. for eadt CT no contrast STAT and Compazine KS PRN.
--- NOTE | 2019-04-30 07:53 | NUR ---
HAND-OFF: Report given to. Raúl Clark RN. Patient in bed with noted change in condition, endorsed plan of care.
--- NOTE | 2019-04-30 07:56 | NUR ---
NURSE NOTES: Received report from MARLYS Pierce. Patient in bed, c/o abdominal pain 10/10 at this time, vomiting brown liquid, moderate amount. Patient AOx4, 2L oxygen provided for O2 sat 88% on room air. Endorsed total of 2unit PRBC given yesterday 04/29/19. IV on right FA 18G, Right wrist 22G, Left FA 20G, asymptomatic, patent, intact, IV fluid running as prescribed. Bed in lowest position, side rails upx3, padded, call light within reach. Will continue to monitor.
[2019-04-30 08:00] VITALS: BP 99/63
--- NOTE | 2019-04-30 08:10 | NUR ---
NURSE NOTES: Dr. Vasquez made aware patient has CT scan , O2 sat 80s on room air. Per Dr. Vasquez, 2L oxygen via NC, and off tele order. Order noted, entered, carried out.
--- NOTE | 2019-04-30 08:11 | NUR ---
NURSE NOTES: Per Dr. Vasquez, order 2L oxygen via NC and keep sat more than 80%. Order noted, entered, carried out.
--- NOTE | 2019-04-30 09:05 | Diagnostic Imaging Report ---
EXAM: CT Head Without Intravenous Contrast CLINICAL HISTORY: FALL TECHNIQUE: Axial computed tomography images of the head/brain without intravenous contrast. CTDI is 70.38 mGy and DLP is 1347 mGy-cm. One or more of the following dose reduction techniques were used: automated exposure control, adjustment of the mA and/or kV according to patient size, use of iterative reconstruction technique. COMPARISON: CT head 11/16/15 FINDINGS: No intracranial hemorrhage, abnormal intra- or extra-axial collections or parenchymal lesions are seen. There are mild involutional changes with prominence of the sulci, basal cisterns and ventricles. Scattered mild white matter hypoattenuations are present, likely from small vessel disease. The woodson-white differentiation is preserved. No evidence of mass effect, midline shift, or edema. The osseous structures are unremarkable. The visualized portions of the paranasal sinuses are clear. Mastoid air cells are clear. IMPRESSION: 1. No acute intracranial process. 2. Mild generalized atrophy and mild small vessel disease.
[2019-04-30] MEDS: Ciprofloxacin 500mg tab ORAL SCH ×2 (10:11→20:29)
[2019-04-30 10:15] LABS: ANION GAP 9 mmol/L (5-15); BLOOD UREA NITROGEN 9 mg/dL (7-18); CALCIUM 7.3 MG/DL (8.5-10.1); CARBON DIOXIDE 22 MMOL/L (21-32); CHLORIDE 110 MMOL/L (98-107); CHOLESTEROL 108 MG/DL (< 200); CREATININE 0.8 MG/DL (0.55-1.30); HDL CHOLESTEROL 42 MG/DL (40-60); POTASSIUM 4.5 MMOL/L (3.5-5.1); SODIUM 141 MMOL/L (136-145); TRIGLYCERIDES 47 MG/DL (30-150)
--- NOTE | 2019-04-30 10:30 | NUR ---
NURSE NOTES: Dr. Vasquez made aware patient vomited x1 today and O2 sat 84% on 2L and unable to administer morphine for pain d/t low blood pressure. Per Dr. Vasquez, order ABG and MD stated morphine will not affect blood pressure. Order noted, entered, carried out.
--- NOTE | 2019-04-30 10:44 | History & Physical ---
History and Physical History & Physicial HP dictated # [id number] Avi Vasquez MD Apr 30, 2019 10:44
--- NOTE | 2019-04-30 11:00 | NUR ---
NURSE NOTES: Dr. Vasquez made aware of result of ABG, and BS at 1100 was 53, one dose of dextrose given. Per Dr. Vasquez, order VQ scan. Order noted, entered, carried out. Will continue to monitor.
--- NOTE | 2019-04-30 11:05 | NUR ---
NURSE NOTES: Dr. Vasquez made aware of BS level and patient on NPO status, Per Dr. Vasquez, change NS to D5NS at 150 ml/h, Order noted, entered, carried out.
[2019-04-30] MEDS: D5NS 1,000 ML IV SCH ×2 (11:09→17:27)
[2019-04-30 11:56] LABS: BASOPHILS % (AUTO) 0.8 % (0.0-2.0); EOSINOPHILS % (AUTO) 2.4 % (0.0-3.0); HEMATOCRIT 28.1 % (37.0-47.0); HEMOGLOBIN 9.2 G/DL (12.0-16.0); LYMPHOCYTES % (AUTO) 18.1 % (20.0-45.0); MEAN CORPUSCULAR VOLUME 83 FL (80-99); NEUTROPHILS % (AUTO) 74.8 % (45.0-75.0); PLATELET COUNT 220 K/UL (150-450); RED BLOOD COUNT 3.37 M/UL (4.20-5.40); RED CELL DISTRIBUTION WIDTH 20.6 % (11.6-14.8); WHITE BLOOD COUNT 6.2 K/UL (4.8-10.8)
[2019-04-30 12:00] VITALS: BP 97/57
--- NOTE | 2019-04-30 14:23 | Pulmonology Progress Note ---
Assessment/Plan Assessment/Plan Pulmonary Consultation HPI Patient is a 44-year-old woman with previous history of Hypertension, Diabetes and Seizures, admitted with vaginal bleeding and abdominal pain x8 days. Complains of weakness/dizziness, had a recent fall in the shower, was admitted here recently for similar complaint and needed a blood transfusion. Denies being . No other aggravating relieving factors. Denies any other associated symptoms Allergies: No Known Allergies Past Medical History: DM, HTN, Seizures Past Surgical History: none Pertinent Family History: none Social History: Denies: smoking, alcohol use, drug use Fell in the shower and hit her head one day prior to admission All Other Systems: negative except mentioned in HPI Physical Exam Vital Signs Noted Date Time Temp Pulse Resp B/P (MAP) Pulse Ox O2 Delivery O2 Flow Rate FiO2 04/29/19 20:44 98.6 88 18 90/59 (69) 100 Room Air General Appearance: no apparent distress, alert, GCS 15, non-toxic Head: normocephalic, atraumatic Eyes: bilateral eye normal inspection, bilateral eye PERRL ENT: hearing grossly normal, normal pharynx, no angioedema, normal voice Neck: full range of motion, supple/symm/no masses, No LN Respiratory: chest non-tender, lungs clear, normal breath sounds, speaking full sentences Cardiovascular: regular rate, rhythm, no edema, HS1, HS2, RRR Gastrointestinal: normal bowel sounds, soft, non-distended, no guarding, no rebound, tenderness Rectal: deferred Genitourinary: normal inspection, no CVA tenderness Musculoskeletal: back normal, gait/station normal, normal range of motion, non- tender Neurologic: alert, oriented x3, responsive, motor strength/tone normal, sensory intact, speech normal Impression: Dysfunctional uterine bleeding Sp previous blood transfusion Anemia Hypoxia on ABG Diabetes Hypertension Seizures Plan CXR Incentive spirometer REpeat ABG PRN HHN O2 PRN PPX Monitor Labs Admitted to telemetry in serious condition Labs Test 04/29/19 21:00 White Blood Count 6.9 K/UL (4.8-10.8) Red Blood Count 2.24 M/UL (4.20-5.40) Hemoglobin 5.4 G/DL (12.0-16.0) Hematocrit 17.2 % (37.0-47.0) Mean Corpuscular Volume 77 FL (80-99) Mean Corpuscular Hemoglobin 24.4 PG (27.0-31.0) Mean Corpuscular Hemoglobin Concent 31.7 G/DL (32.0-36.0) Red Cell Distribution Width 23.6 % (11.6-14.8) Platelet Count 298 K/UL (150-450) Mean Platelet Volume 5.9 FL (6.5-10.1) Neutrophils (%) (Auto) % (45.0-75.0) Lymphocytes (%) (Auto) % (20.0-45.0) Monocytes (%) (Auto) % (1.0-10.0) Eosinophils (%) (Auto) % (0.0-3.0) Basophils (%) (Auto) % (0.0-2.0) Prothrombin Time 9.8 SEC (9.30-11.50) Prothromb Time International Ratio 0.9 (0.9-1.1) Activated Partial Thromboplast Time 26 SEC (23-33) Urine Color Yellow Urine Appearance Cloudy Urine pH 5 (4.5-8.0) Urine Specific [place] 1.015 (1.005-1.035) Urine Protein 2+ (NEGATIVE) Urine Glucose (UA) 2+ (NEGATIVE) Urine Ketones 1+ (NEGATIVE) Urine Blood 5+ (NEGATIVE) Urine Nitrite Negative (NEGATIVE) Urine Bilirubin Negative (NEGATIVE) Urine Urobilinogen 1 MG/DL (0.0-1.0) Urine Leukocyte Esterase 2+ (NEGATIVE) Urine RBC Tntc /HPF (0 - 2) Urine WBC 10-15 /HPF (0 - 2) Urine Squamous Epithelial Cells Few /LPF (NONE/OCC) Urine Bacteria Few /HPF (NONE) Urine Mucus Few /LPF (NONE/OCC) Urine HCG, Qualitative Negative (NEGATIVE) Sodium Level 137 MMOL/L (136-145) Potassium Level 4.3 MMOL/L (3.5-5.1) Chloride Level 104 MMOL/L (98-107) Carbon Dioxide Level 26 MMOL/L (21-32) Anion Gap 7 mmol/L (5-15) Blood Urea Nitrogen 12 mg/dL (7-18) Creatinine 1.0 MG/DL (0.55-1.30) Estimat Glomerular Filtration Rate > 60 mL/min (>60) Glucose Level 140 MG/DL (74-106) Calcium Level 7.9 MG/DL (8.5-10.1) Total Bilirubin 0.2 MG/DL (0.2-1.0) Aspartate Amino Transf (AST/SGOT) 18 U/L (15-37) Alanine Aminotransferase (ALT/SGPT) 23 U/L (12-78) Alkaline Phosphatase 80 U/L (46-116) Total Protein 6.2 G/DL (6.4-8.2) Albumin 2.7 G/DL (3.4-5.0) Globulin 3.5 g/dL Albumin/Globulin Ratio 0.8 (1.0-2.7) Hematology Test 04/29/19 21:00 White Blood Count 6.9 K/UL (4.8-10.8) Red Blood Count 2.24 M/UL (4.20-5.40) L Hemoglobin 5.4 G/DL (12.0-16.0) *L Hematocrit 17.2 % (37.0-47.0) L Mean Corpuscular Volume 77 FL (80-99) L Mean Corpuscular Hemoglobin 24.4 PG (27.0-31.0) L Mean Corpuscular Hemoglobin Concent 31.7 G/DL (32.0-36.0) L Red Cell Distribution Width 23.6 % (11.6-14.8) H Platelet Count 298 K/UL (150-450) Mean Platelet Volume 5.9 FL (6.5-10.1) L Neutrophils (%) (Auto) % (45.0-75.0) Lymphocytes (%) (Auto) % (20.0-45.0) Monocytes (%) (Auto) % (1.0-10.0) Eosinophils (%) (Auto) % (0.0-3.0) Basophils (%) (Auto) % (0.0-2.0) Coagulation Test 04/29/19 21:00 Prothrombin Time 9.8 SEC (9.30-11.50) Prothromb Time International Ratio 0.9 (0.9-1.1) Activated Partial Thromboplast Time 26 SEC (23-33) Chemistry Test 04/29/19 21:00 Sodium Level 137 MMOL/L (136-145) Potassium Level 4.3 MMOL/L (3.5-5.1) Chloride Level 104 MMOL/L (98-107) Carbon Dioxide Level 26 MMOL/L (21-32) Anion Gap 7 mmol/L (5-15) Blood Urea Nitrogen 12 mg/dL (7-18) Creatinine 1.0 MG/DL (0.55-1.30) Estimat Glomerular Filtration Rate > 60 mL/min (>60) Glucose Level 140 MG/DL (74-106) H Calcium Level 7.9 MG/DL (8.5-10.1) L Total Bilirubin 0.2 MG/DL (0.2-1.0) Aspartate Amino Transf (AST/SGOT) 18 U/L (15-37) Alanine Aminotransferase (ALT/SGPT) 23 U/L (12-78) Alkaline Phosphatase 80 U/L (46-116) Total Protein 6.2 G/DL (6.4-8.2) L Albumin 2.7 G/DL (3.4-5.0) L Globulin 3.5 g/dL Albumin/Globulin Ratio 0.8 (1.0-2.7) L EKG: Rate: normal Rhythm: NSR ST Segments: no acute changes Subjective ROS Limited/Unobtainable: No Allergies: Coded Allergies: No Known Allergies (Verified , 09/02/07) Objective Last 24 Hour Vital Signs Date Time Temp Pulse Resp B/P (MAP) Pulse Ox O2 Delivery O2 Flow Rate FiO2 04/30/19 12:00 85 04/30/19 12:00 98.4 85 18 97/57 (70) 89 04/30/19 09:00 Nasal Cannula 2.0 04/30/19 08:00 81 04/30/19 08:00 98.4 88 18 99/63 (75) 90 04/30/19 04:00 85 04/30/19 04:00 97.5 87 23 90/59 (69) 96 04/30/19 00:09 Room Air 04/30/19 00:00 96 04/29/19 23:45 97.9 94 20 93/62 (72) 100 04/29/19 23:40 98.2 91 14 96/57 97 Room Air 04/29/19 23:40 98.2 91 14 96/57 97 Room Air 04/29/19 23:05 98.0 86 20 95/58 98 Room Air 04/29/19 23:05 98.0 86 20 04/29/19 22:50 98.9 86 18 92/59 100 Room Air 04/29/19 22:50 98.9 86 18 04/29/19 22:35 97.8 86 13 04/29/19 22:35 97.8 86 14 83/52 100 Room Air 04/29/19 22:30 97.2 79 17 83/44 100 Room Air 04/29/19 22:30 97.2 79 17 04/29/19 22:25 98.0 73 17 04/29/19 22:25 98.0 73 17 75/41 96 Room Air 04/29/19 22:20 97.7 77 19 81/49 99 Room Air 04/29/19 22:20 97.7 77 19 04/29/19 21:46 98.6 04/29/19 20:50 98.6 75 14 85/45 100 Room Air 04/29/19 20:44 98.6 88 18 90/59 (69) 100 Room Air Intake and Output 04/29/19 04/30/19 19:00 07:00 Intake Total 2560 ml Output Total 180 ml Balance 2380 ml Intake Oral 60 ml IV Total 2000 ml Blood Product 500 ml Output Emesis 180 ml # Bowel Movements 1 Laboratory Tests 04/29/19 21:00: White Blood Count 6.9, Red Blood Count 2.24L, Hemoglobin 5.4*L, Hematocrit 17.2L , Mean Corpuscular Volume 77L, Mean Corpuscular Hemoglobin 24.4L, Mean Corpuscular Hemoglobin Concent 31.7L, Red Cell Distribution Width 23.6H, Platelet Count 298, Mean Platelet Volume 5.9L, Neutrophils (%) (Auto) , Lymphocytes (%) (Auto) , Monocytes (%) (Auto) , Eosinophils (%) (Auto) , Basophils (%) (Auto) , Prothrombin Time 9.8, Prothromb Time International Ratio 0.9, Activated Partial Thromboplast Time 26, Urine Color Yellow, Urine Appearance Cloudy, Urine pH 5, Urine Specific [place] 1.015, Urine Protein 2+H, Urine Glucose (UA) 2+H, Urine Ketones 1+H, Urine Blood 5+H, Urine Nitrite Negative, Urine Bilirubin Negative, Urine Urobilinogen 1H, Urine Leukocyte Esterase 2+H, Urine RBC TntcH, Urine WBC 10-15H, Urine Squamous Epithelial Cells Few, Urine Bacteria Few, Urine Mucus FewH, Urine HCG, Qualitative Negative , Sodium Level 137, Potassium Level 4.3, Chloride Level 104, Carbon Dioxide Level 26, Anion Gap 7, Blood Urea Nitrogen 12, Creatinine 1.0, Estimat Glomerular Filtration Rate > 60, Glucose Level 140H, Calcium Level 7.9L, Total Bilirubin 0.2, Aspartate Amino Transf (AST/SGOT) 18, Alanine Aminotransferase ( ALT/SGPT) 23, Alkaline Phosphatase 80, Total Protein 6.2L, Albumin 2.7L, Globulin 3.5, Albumin/Globulin Ratio 0.8L 04/30/19 06:53: Sodium Level 141, Potassium Level 4.5, Chloride Level 110H, Carbon Dioxide Level 22, Anion Gap 9, Blood Urea Nitrogen 9, Creatinine 0.8, Estimat Glomerular Filtration Rate > 60, Glucose Level 68L, Calcium Level 7.3L, Hemoglobin A1c 6.8H, Triglycerides Level 47, Cholesterol Level 108, LDL Cholesterol 63, HDL Cholesterol 42, Cholesterol/HDL Ratio 2.6L, Thyroid Stimulating Hormone (TSH) 41.881H 04/30/19 10:56: Arterial Blood pH 7.327L, Arterial Blood Partial Pressure CO2 44.5, Arterial Blood Partial Pressure O2 53.9L, Arterial Blood HCO3 22.8, Arterial Blood Oxygen Saturation 87.1*L, Arterial Blood Base Excess -3.1L, Daron Test Positive 04/30/19 11:10: White Blood Count 6.2, Red Blood Count 3.37L, Hemoglobin 9.2#L, Hematocrit 28.1# L, Mean Corpuscular Volume 83, Mean Corpuscular Hemoglobin 27.4, Mean Corpuscular Hemoglobin Concent 32.9, Red Cell Distribution Width 20.6H, Platelet Count 220, Mean Platelet Volume 6.2L, Neutrophils (%) (Auto) 74.8, Lymphocytes (%) (Auto) 18.1L, Monocytes (%) (Auto) 4.0, Eosinophils (%) (Auto) 2.4, Basophils (%) (Auto) 0.8, Free Thyroxine 0.48L, Triiodothyronine (T3) Uptake [Pending] Current Medications Medications (Trade) Dose Ordered Sig/Alycia Route PRN Reason Start Time Stop Time Status Last Admin Dose Admin Acetaminophen (Tylenol) 650 mg Q4H PRN ORAL Mild Pain (Pain Scale 1-3) 04/29/19 22:45 05/29/19 22:44 04/30/19 10:12 Atorvastatin Calcium (Lipitor) 10 mg QHS ORAL 04/30/19 21:00 05/30/19 20:59 Ciprofloxacin (Cipro 500mg tab) 500 mg EVERY 12 HOURS ORAL 04/30/19 09:45 05/07/19 09:44 04/30/19 10:11 Dextrose (Dextrose 50%) 25 ml Q30M PRN IV Hypoglycemia 04/29/19 22:45 05/29/19 22:44 Dextrose (Dextrose 50%) 50 ml Q30M PRN IV Hypoglycemia 04/29/19 22:45 05/29/19 22:44 04/30/19 11:08 Dextrose/Sodium Chloride 1,000 ml @ 150 mls/hr Q6H40M IV 04/30/19 11:15 05/30/19 11:14 04/30/19 11:09 Ferrous Sulfate (Feosol) 325 mg TWICE A DAY ORAL 04/30/19 09:00 05/30/19 08:59 04/30/19 08:49 Insulin Aspart (NovoLOG) BEFORE MEALS AND HS SUBQ 04/30/19 06:30 05/30/19 06:29 Levothyroxine Sodium (Synthroid) 125 mcg DAILY@0630 ORAL 04/30/19 06:30 05/30/19 06:29 04/30/19 06:09 Magnesium Hydroxide (Mom) 30 ml HSPRN PRN ORAL Constipation 04/29/19 22:45 05/29/19 22:44 Morphine Sulfate (Morphine Sulfate) 2 mg Q2H PRN IVP For Pain 04/30/19 00:15 05/07/19 00:14 Morphine Sulfate (Morphine Sulfate) 4 mg Q2H PRN IVP For Pain 04/30/19 00:15 05/07/19 00:14 04/30/19 03:22 Ondansetron HCl (Zofran) 4 mg Q4HR PRN IVP Nausea & Vomiting 04/30/19 03:30 05/30/19 03:29 04/30/19 08:49 Prochlorperazine (Compazine) 25 mg Q12H PRN RECTAL Nausea & Vomiting 04/30/19 08:00 05/30/19 07:59 Sodium Chloride 1,000 ml @ 100 mls/hr Q10H IVLG 04/29/19 23:45 05/29/19 23:44 04/30/19 08:51 Zolpidem Tartrate (Ambien) 5 mg DAILYPRN PRN ORAL Insomnia 04/29/19 22:45 05/06/19 22:44 Wade Bean MD Apr 30, 2019 14:23
[2019-04-30] MEDS ORDERED: Albuterol/Ipratropium 3ml neb HHN PRN (15:45)
--- NOTE | 2019-04-30 15:58 | NUR ---
NURSE NOTES: Dr. Bean made aware patient on 2L oxygen via NC, O2 sat 85% , AOx4. Per Dr. Bean, repeat ABG, prn Bipap 12/5, DuoNeb prn q4h, chest x-ray if not done in ED, keep O2 sat 90-94%, bilateral venous duplex r/o DVT if negative for DVT, order SCD, VQ scan r/o PE. Order noted, entered, carried out. RT called for Bipap prn needed. Per RT, will be there. Will continue to monitor.
[2019-04-30 16:00] VITALS: BP 119/70
--- NOTE | 2019-04-30 16:14 | NUR ---
CASE MANAGEMENT: REVIEW 44Y/F PRESENTED TO ED FROM HOME CC: VAGINAL BLEEDING X8DAYS . ABD PAIN/CRAMPING 04/05 . WEAKNESS SI: VAGINAL BLEEDING . ANEMIA . HYPOTENSION T 97.6 HR 75 RR 134 BP 75/41 SAT 96% ROOM AIR H/H 5.4/17.2 IS: NS IVF BOLUS X1 MORPHINE IV X1 PRBC'S 2 UNITS PATIENT ADMITTED TO TELEMETRY UNIT 04/30/2019 DCP: PATIENT IS FROM HOME
--- NOTE | 2019-04-30 17:15 | History and Physical Report ---
DATE OF ADMISSION: 04/29/2019 CHIEF COMPLAINT: Vaginal bleeding. HISTORY OF PRESENT ILLNESS: This is a 44-year-old female, who presented to the emergency room with vaginal bleed for the past 8 days. The patient was feeling weak. Two days ago, she also felt dizzy and fell in the bathtub and hit the back of her head. Since then, she has also had headaches. She was admitted overnight and was transfused 2 units of packed red blood cells. This morning, she was also complaining of abdominal pain and vomiting. She stated that the vomiting also started yesterday, but got worse today. PAST MEDICAL HISTORY: Includes history of hypertension, diabetes, and seizures. MEDICATIONS: None at home. She was not even taking pain medications. ALLERGIES: No known drug allergies. SOCIAL HISTORY: The patient lives at home with and kids. No history of smoking or alcohol abuse. REVIEW OF SYSTEMS: As above. PHYSICAL EXAMINATION: GENERAL: The patient is a 44-year-old female, in no acute distress. VITAL SIGNS: Blood pressure is 99/63, pulse 88, and temperature 98.4. HEENT: Pale conjunctivae. Anicteric sclerae. NECK: Supple. LUNGS: Clear to auscultation. HEART: S1 and S2 without murmurs or rubs. ABDOMEN: Soft. There is some epigastric tenderness. EXTREMITIES: No cyanosis or edema. LABORATORY FINDINGS: The CBC shows WBC of 6900, hematocrit is 17.2, hemoglobin is 5.4, and platelets 298,000. Chemistry panel shows a serum sodium of 141, potassium 4.5, chloride 110, and CO2 23. Blood sugar is 68. Calcium is 7.3. TSH is 41.8. The UA showed too numerous to count rbc's and 10 to 15 wbc's per high-power field. ASSESSMENT: This is a 44-year-old female with the following medical problems. 1. Vaginal bleed. Apparently, this is a recurrent problem. She was seen previously at [facility] and she was supposed to follow up with PATTERN ROOM ATTENDANT, but she stated that her insurance is Medical and she could not get an appointment. 2. She has some headache after a fall and hitting her head. So, intracranial bleeding needs to be ruled out. The nausea and vomiting may be related to that or may be a separate issue because the patient has also abdominal pain. 3. Abdominal pain, which is in the epigastric area. In that regards, peptic ulcer disease or acute gastritis etc., needs to be ruled out. 4. The patient has hematuria, but also there was some white cells. The question is this is all related to the vaginal bleed or she has underlying urinary tract infection as well. 5. Increased TSH indicating hypothyroidism. PLAN: 1. The patient will be transfused further if needed. This CBC is pending today. 2. The patient was told again that she needs to follow with PATTERN ROOM ATTENDANT. If needed, she needs to go to [facility] to be seen by a air route controller. She understood that and also told her that she may have underlying cancer and it is urgent that she follows up. 3. Full TFTs will be done and the patient will likely need to be started on Synthroid. 4. The urine culture is pending. I will start the patient empirically on Cipro at this time. 5. Case was discussed with the RN as well. Avi Vasquez M.D. DR: MICHELLE JOB#: [id number] CC: PEPE
--- NOTE | 2019-04-30 17:31 | CDS Physician Query ---
Clarification is required for compliance, coding accuracy, and to reflect severity of illness for this patient Dear Marylin Salinas Date: 04/30/2019 Incident Response Specialist/ CDS Name: Fadumo Smith 44 year old female with complaints of vaginal bleeding for eight days, H/H 5.4/17.2, type and cross and transfused with two units of leukoreduced blood, post transfusion H/H 9.2/28.1. Please clarify the specific type of anemia below: Acuity []Acute []Acute on Chronic []Chronic Etiology [] Blood loss [] ESRD [] Neoplastic disease [] Iron deficiency [] GI Bleeding [] Anemia of chronic disease [] Dilutional [] Postoperative [] Unable to determine [] Other: Present on Admission: [] Yes [] No [] Clinically Undetermined Physician signature Date Please also document in your Progress Notes and/or Discharge Summary and indicate if the condition was present on admission. PEPE
--- NOTE | 2019-04-30 19:40 | NUR ---
HAND-OFF: Report given to MARLYS Brunner.
--- NOTE | 2019-04-30 19:44 | NUR ---
NURSE NOTES: Pt received from MARLYS Eagle alert and oriented x4 primarily Ukrainian-speaking with no acute s/s of distress noted. On 2L NC, saturating at 90%. IV site asymptomatic and patent on R fa 18g, running D5NS at 150 ml/hr, R wrist 22g, L fa 20g saline lock. Bed in lowest position, bed alarm on, call light and belongings within reach.
[2019-04-30 20:00] VITALS: BP 114/68
--- NOTE | 2019-04-30 20:17 | General Progress Note ---
Assessment/Plan Problem List: (1) Abdominal pain ICD Codes: R10.9 - Abdominal pain SNOMED: 02778966 (2) Anemia ICD Codes: D64.9 - Anemia, unspecified SNOMED: 930503062 Qualifiers: Qualified Codes: D64.9 - Anemia, unspecified (3) Vaginal bleeding ICD Codes: N89.8 - Other specified noninflammatory disorders of vagina SNOMED: 291307427 (4) DM (diabetes mellitus) ICD Codes: E11.9 - DM (diabetes mellitus) SNOMED: 97794155 Assessment/Plan: FORENSIC MEDICAL EXAMINER eval transfuse to keep HGB above 7 KUB add reglan check amylase and lipase in am will start diet tomorrow if stable Subjective ROS Limited/Unobtainable: Yes Allergies: Coded Allergies: No Known Allergies (Verified , 09/02/07) Subjective N/V Objective Last 24 Hour Vital Signs Date Time Temp Pulse Resp B/P (MAP) Pulse Ox O2 Delivery O2 Flow Rate FiO2 04/30/19 19:47 94 Nasal Cannula 3.0 32 04/30/19 16:00 98.2 86 18 119/70 (86) 93 04/30/19 16:00 74 04/30/19 12:00 85 04/30/19 12:00 98.4 85 18 97/57 (70) 89 04/30/19 09:00 Nasal Cannula 2.0 04/30/19 08:00 81 04/30/19 08:00 98.4 88 18 99/63 (75) 90 04/30/19 04:00 85 04/30/19 04:00 97.5 87 23 90/59 (69) 96 04/30/19 00:09 Room Air 04/30/19 00:00 96 04/29/19 23:45 97.9 94 20 93/62 (72) 100 04/29/19 23:40 98.2 91 14 96/57 97 Room Air 04/29/19 23:40 98.2 91 14 96/57 97 Room Air 04/29/19 23:05 98.0 86 20 95/58 98 Room Air 04/29/19 23:05 98.0 86 20 04/29/19 22:50 98.9 86 18 92/59 100 Room Air 04/29/19 22:50 98.9 86 18 8/3/19 22:35 97.8 86 13 04/29/19 22:35 97.8 86 14 83/52 100 Room Air 04/29/19 22:30 97.2 79 17 83/44 100 Room Air 04/29/19 22:30 97.2 79 17 04/29/19 22:25 98.0 73 17 04/29/19 22:25 98.0 73 17 75/41 96 Room Air 04/29/19 22:20 97.7 77 19 81/49 99 Room Air 04/29/19 22:20 97.7 77 19 04/29/19 21:46 98.6 04/29/19 20:50 98.6 75 14 85/45 100 Room Air 04/29/19 20:44 98.6 88 18 90/59 (69) 100 Room Air Intake and Output 04/29/19 04/30/19 19:00 07:00 Intake Total 2560 ml Output Total 180 ml Balance 2380 ml Intake Oral 60 ml IV Total 2000 ml Blood Product 500 ml Output Emesis 180 ml # Bowel Movements 1 Laboratory Tests 04/29/19 21:00: White Blood Count 6.9, Red Blood Count 2.24L, Hemoglobin 5.4*L, Hematocrit 17.2L , Mean Corpuscular Volume 77L, Mean Corpuscular Hemoglobin 24.4L, Mean Corpuscular Hemoglobin Concent 31.7L, Red Cell Distribution Width 23.6H, Platelet Count 298, Mean Platelet Volume 5.9L, Neutrophils (%) (Auto) , Lymphocytes (%) (Auto) , Monocytes (%) (Auto) , Eosinophils (%) (Auto) , Basophils (%) (Auto) , Prothrombin Time 9.8, Prothromb Time International Ratio 0.9, Activated Partial Thromboplast Time 26, Urine Color Yellow, Urine Appearance Cloudy, Urine pH 5, Urine Specific [place] 1.015, Urine Protein 2+H, Urine Glucose (UA) 2+H, Urine Ketones 1+H, Urine Blood 5+H, Urine Nitrite Negative, Urine Bilirubin Negative, Urine Urobilinogen 1H, Urine Leukocyte Esterase 2+H, Urine RBC TntcH, Urine WBC 10-15H, Urine Squamous Epithelial Cells Few, Urine Bacteria Few, Urine Mucus FewH, Urine HCG, Qualitative Negative , Sodium Level 137, Potassium Level 4.3, Chloride Level 104, Carbon Dioxide Level 26, Anion Gap 7, Blood Urea Nitrogen 12, Creatinine 1.0, Estimat Glomerular Filtration Rate > 60, Glucose Level 140H, Calcium Level 7.9L, Total Bilirubin 0.2, Aspartate Amino Transf (AST/SGOT) 18, Alanine Aminotransferase ( ALT/SGPT) 23, Alkaline Phosphatase 80, Total Protein 6.2L, Albumin 2.7L, Globulin 3.5, Albumin/Globulin Ratio 0.8L 04/30/19 06:53: Sodium Level 141, Potassium Level 4.5, Chloride Level 110H, Carbon Dioxide Level 22, Anion Gap 9, Blood Urea Nitrogen 9, Creatinine 0.8, Estimat Glomerular Filtration Rate > 60, Glucose Level 68L, Calcium Level 7.3L, Hemoglobin A1c 6.8H, Triglycerides Level 47, Cholesterol Level 108, LDL Cholesterol 63, HDL Cholesterol 42, Cholesterol/HDL Ratio 2.6L, Thyroid Stimulating Hormone (TSH) 41.881H 04/30/19 10:56: Arterial Blood pH 7.327L, Arterial Blood Partial Pressure CO2 44.5, Arterial Blood Partial Pressure O2 53.9L, Arterial Blood HCO3 22.8, Arterial Blood Oxygen Saturation 87.1*L, Arterial Blood Base Excess -3.1L, Daron Test Positive 04/30/19 11:10: White Blood Count 6.2, Red Blood Count 3.37L, Hemoglobin 9.2#L, Hematocrit 28.1# L, Mean Corpuscular Volume 83, Mean Corpuscular Hemoglobin 27.4, Mean Corpuscular Hemoglobin Concent 32.9, Red Cell Distribution Width 20.6H, Platelet Count 220, Mean Platelet Volume 6.2L, Neutrophils (%) (Auto) 74.8, Lymphocytes (%) (Auto) 18.1L, Monocytes (%) (Auto) 4.0, Eosinophils (%) (Auto) 2.4, Basophils (%) (Auto) 0.8, Free Thyroxine 0.48L, Triiodothyronine (T3) Uptake [Pending] 04/30/19 16:06: Arterial Blood pH 7.344L, Arterial Blood Partial Pressure CO2 35.3, Arterial Blood Partial Pressure O2 59.8L, Arterial Blood HCO3 18.8L, Arterial Blood Oxygen Saturation 90.0L, Arterial Blood Base Excess -6.2L, Daron Test Positive Height (Feet): 5 Height (Inches): 0.00 Weight (Pounds): 121 General Appearance: alert EENT: normal ENT inspection Neck: supple Cardiovascular: normal rate Respiratory/Chest: lungs clear Abdomen: normal bowel sounds, non tender, soft Extremities: non-tender Edin Correia MD Apr 30, 2019 20:16
[2019-04-30] MEDS ORDERED: Metoclopramide 10mg/2ml Inj IVP PRN (20:30)
[2019-05-01] VITALS: BP 108/64
[2019-05-01] MEDS: D5NS 1,000 ML IV SCH ×4 (01:08→21:37)
[2019-05-01] MEDS: Morphine Sulfate 4mg/ml Inj (IV USE ONLY) IVP PRN ×2 (01:19→06:13)
[2019-05-01 04:00] VITALS: BP 113/67
[2019-05-01] MEDS: NovoLOG Insulin Flexpen SUBQ SCH ×4 (06:14→21:00)
[2019-05-01] MEDS: Levothyroxine 125mcg tab ORAL SCH (06:14)
--- NOTE | 2019-05-01 07:28 | NUR ---
HAND-OFF: Report given to MARLYS Eagle. No acute s/s of distress noted.
--- NOTE | 2019-05-01 07:29 | NUR ---
NURSE NOTES: Received report from MARLYS Brunner. Patient in bed resting ,no active s/s cardiac, respiratory distress noticed at this time. Patient on 2L oxygen via NC. IV on right FA 18G, LT FA 20G, asymptomatic, patent, intact, IV fluid running as prescribed. Patient AOx4, SR with HR 77. Endorsed patient vomit x2 last night. Called RT for clarification for Bipap, per RT Bipap delivered late night will brining in this morning. Bed in lowest position, side rails upx3, call light within reach. Will continue to monitor.
[2019-05-01 07:52] LABS: BASOPHILS % (AUTO) 0.8 % (0.0-2.0); EOSINOPHILS % (AUTO) 2.3 % (0.0-3.0); HEMATOCRIT 31.8 % (37.0-47.0); HEMOGLOBIN 10.3 G/DL (12.0-16.0); LYMPHOCYTES % (AUTO) 11.8 % (20.0-45.0); MEAN CORPUSCULAR VOLUME 85 FL (80-99); MONOCYTES % (AUTO) 2.8 % (1.0-10.0); NEUTROPHILS % (AUTO) 82.3 % (45.0-75.0); PLATELET COUNT 212 K/UL (150-450); RED BLOOD COUNT 3.75 M/UL (4.20-5.40)
[2019-05-01 08:00] VITALS: BP 124/71
[2019-05-01 08:19] LABS: ALANINE AMINOTRANSFERASE 18 U/L (12-78); ALBUMIN 2.2 G/DL (3.4-5.0); ALBUMIN/GLOBULIN RATIO 0.7 (1.0-2.7); ALKALINE PHOSPHATASE 79 U/L (46-116); AMYLASE 31 U/L (25-115); ANION GAP 7 mmol/L (5-15); ASPARTATE AMINO TRANSFERASE 48 U/L (15-37); BILIRUBIN,TOTAL 0.4 MG/DL (0.2-1.0); BLOOD UREA NITROGEN 4 mg/dL (7-18); CARBON DIOXIDE 21 MMOL/L (21-32); CHLORIDE 112 MMOL/L (98-107); CREATININE 0.5 MG/DL (0.55-1.30); POTASSIUM 4.4 MMOL/L (3.5-5.1); SODIUM 140 MMOL/L (136-145)
[2019-05-01] MEDS: Ciprofloxacin 500mg tab ORAL SCH ×2 (08:43→21:37)
--- NOTE | 2019-05-01 10:11 | NUR ---
Regarding V/Q Scan: Lung Perfusion scan complete. Pt attempted but could not tolerate and subsequently refused Lung Ventilation scan.
--- NOTE | 2019-05-01 10:30 | NUR ---
NURSE NOTES: Dr. Correia made aware patient vomited x2 last night, and patient stated patient vomited today. Per Dr. Correia, clear liquid diet, change Reglan IVP prn to scheduled q6h. Order noted, entered, carried out.
--- NOTE | 2019-05-01 10:41 | General Progress Note ---
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 to keep HGB above 7 KUB>>pending change reglan to ATC will start clears Subjective ROS Limited/Unobtainable: Yes Allergies: Coded Allergies: No Known Allergies (Verified , 09/02/07) Subjective N/V Objective Last 24 Hour Vital Signs Date Time Temp Pulse Resp B/P (MAP) Pulse Ox O2 Delivery O2 Flow Rate FiO2 05/01/19 09:00 Nasal Cannula 2.0 05/01/19 08:00 77 05/01/19 08:00 98.4 78 16 124/71 (88) 98 05/01/19 04:00 97.8 79 17 113/67 (82) 98 05/01/19 04:00 77 05/01/19 00:00 98.8 75 18 108/64 (79) 92 05/01/19 00:00 78 04/30/19 21:00 Nasal Cannula 2.0 04/30/19 20:00 75 04/30/19 20:00 98.6 79 18 114/68 (83) 92 04/30/19 19:47 94 Nasal Cannula 3.0 32 04/30/19 16:00 98.2 86 18 119/70 (86) 93 04/30/19 16:00 74 04/30/19 12:00 85 04/30/19 12:00 98.4 85 18 97/57 (70) 89 Intake and Output 04/30/19 05/01/19 18:59 06:59 Intake Total 150 ml 1050 ml Output Total 180 ml 1700 ml Balance -30 ml -650 ml IV Total 150 ml 1050 ml Output Urine Total 1700 ml Emesis 180 ml # Voids 2 3 Laboratory Tests 04/30/19 10:56: Arterial Blood pH 7.327L, Arterial Blood Partial Pressure CO2 44.5, Arterial Blood Partial Pressure O2 53.9L, Arterial Blood HCO3 22.8, Arterial Blood Oxygen Saturation 87.1*L, Arterial Blood Base Excess -3.1L, Daron Test Positive 04/30/19 11:10: White Blood Count 6.2, Red Blood Count 3.37L, Hemoglobin 9.2#L, Hematocrit 28.1# L, Mean Corpuscular Volume 83, Mean Corpuscular Hemoglobin 27.4, Mean Corpuscular Hemoglobin Concent 32.9, Red Cell Distribution Width 20.6H, Platelet Count 220, Mean Platelet Volume 6.2L, Neutrophils (%) (Auto) 74.8, Lymphocytes (%) (Auto) 18.1L, Monocytes (%) (Auto) 4.0, Eosinophils (%) (Auto) 2.4, Basophils (%) (Auto) 0.8, Free Thyroxine 0.48L, Triiodothyronine (T3) Uptake 24 04/30/19 16:06: Arterial Blood pH 7.344L, Arterial Blood Partial Pressure CO2 35.3, Arterial Blood Partial Pressure O2 59.8L, Arterial Blood HCO3 18.8L, Arterial Blood Oxygen Saturation 90.0L, Arterial Blood Base Excess -6.2L, Daron Test Positive 05/01/19 06:33: White Blood Count 8.0, Red Blood Count 3.75L, Hemoglobin 10.3L, Hematocrit 31.8L , Mean Corpuscular Volume 85, Mean Corpuscular Hemoglobin 27.4, Mean Corpuscular Hemoglobin Concent 32.2, Red Cell Distribution Width 21.0H, Platelet Count 212, Mean Platelet Volume 6.3L, Neutrophils (%) (Auto) 82.3H, Lymphocytes (%) (Auto) 11.8L, Monocytes (%) (Auto) 2.8, Eosinophils (%) (Auto) 2.3, Basophils (%) (Auto) 0.8, Sodium Level 140, Potassium Level 4.4, Chloride Level 112H, Carbon Dioxide Level 21, Anion Gap 7, Blood Urea Nitrogen 4L, Creatinine 0.5L, Estimat Glomerular Filtration Rate > 60, Glucose Level 210#H, Hemoglobin A1c 6.9H, Calcium Level 7.0L, Total Bilirubin 0.4, Aspartate Amino Transf (AST/SGOT) 48H, Alanine Aminotransferase (ALT/SGPT) 18, Alkaline Phosphatase 79, Total Protein 5.5L, Albumin 2.2L, Globulin 3.3, Albumin/ Globulin Ratio 0.7L, Amylase Level 31, Lipase 34L Height (Feet): 5 Height (Inches): 0.00 Weight (Pounds): 121 General Appearance: alert EENT: normal ENT inspection Neck: supple Cardiovascular: normal rate Respiratory/Chest: decreased breath sounds Abdomen: normal bowel sounds, non tender, soft Extremities: non-tender Edin Correia MD May 01, 2019 10:41
[2019-05-01] MEDS: Metoclopramide 10mg/2ml Inj IVP SCH ×2 (11:18→17:26)
--- NOTE | 2019-05-01 11:21 | NUR ---
RADIOLOGY DEPT., CHEST AND ABDOMEN X-RAY DONE.-P.DYE
[2019-05-01 12:00] VITALS: BP 112/73
--- NOTE | 2019-05-01 13:00 | Diagnostic Imaging Report ---
Indication: Abdominal pain Comparison: None Single view of the abdomen obtained Findings: Bowel gas pattern is nonspecific. No mass, ectopic calcifications, or abnormal gas collections are identified. The bones are unremarkable. Impression: No acute findings
--- NOTE | 2019-05-01 13:01 | Diagnostic Imaging Report ---
Indication: Cough Comparison: 04/03/2019 A single view chest radiograph was obtained. Findings: Pulmonary vascular congestion demonstrated with prominent pulmonary vessels, interstitial densities and cardiomegaly. There may be a small left pleural effusion. IMPRESSION: CHF
--- NOTE | 2019-05-01 14:45 | NUR ---
[employer] [facility] SI; VAGINAL BLEEDING T. 98.4 HR 78 RR 16 B/P 124/71 NC 2L O2 SAT @ 98% AST 48 ABD X-RAY- NO ACUTE PROCESS IS: IVF DENS @ 150ML/HR CIPRO PO REGLAN IV TELE STATUS
--- NOTE | 2019-05-01 14:52 | General Progress Note ---
Assessment/Plan Problem List: (1) Vaginal bleeding (2) anemia (3) Hypothyroidism ICD Codes: E03.9 - Hypothyroidism, unspecified SNOMED: 20187683 (4) DM (diabetes mellitus) ICD Codes: E11.9 - DM (diabetes mellitus) SNOMED: 15627683 (5) Abdominal pain ICD Codes: R10.9 - Abdominal pain SNOMED: 66474395 Status Narrative better Assessment/Plan: follow H/H diet per GI await VQ scan results check Echo Subjective Allergies: Coded Allergies: No Known Allergies (Verified , 09/02/07) Subjective feels better Objective Last 24 Hour Vital Signs Date Time Temp Pulse Resp B/P (MAP) Pulse Ox O2 Delivery O2 Flow Rate FiO2 05/01/19 12:00 98.6 88 16 112/73 (86) 95 05/01/19 12:00 93 05/01/19 09:00 Nasal Cannula 2.0 05/01/19 08:00 77 05/01/19 08:00 98.4 78 16 124/71 (88) 98 05/01/19 07:00 96 Nasal Cannula 3.0 32 05/01/19 04:00 97.8 79 17 113/67 (82) 98 05/01/19 04:00 77 05/01/19 00:00 98.8 75 18 108/64 (79) 92 05/01/19 00:00 78 04/30/19 21:00 Nasal Cannula 2.0 04/30/19 20:00 75 04/30/19 20:00 98.6 79 18 114/68 (83) 92 04/30/19 19:47 94 Nasal Cannula 3.0 32 04/30/19 16:00 98.2 86 18 119/70 (86) 93 04/30/19 16:00 74 Intake and Output 04/30/19 05/01/19 18:59 06:59 Intake Total 150 ml 1050 ml Output Total 180 ml 1700 ml Balance -30 ml -650 ml IV Total 150 ml 1050 ml Output Urine Total 1700 ml Emesis 180 ml # Voids 2 3 Laboratory Tests 04/30/19 16:06: Arterial Blood pH 7.344L, Arterial Blood Partial Pressure CO2 35.3, Arterial Blood Partial Pressure O2 59.8L, Arterial Blood HCO3 18.8L, Arterial Blood Oxygen Saturation 90.0L, Arterial Blood Base Excess -6.2L, Daron Test Positive 05/01/19 06:33: White Blood Count 8.0, Red Blood Count 3.75L, Hemoglobin 10.3L, Hematocrit 31.8L , Mean Corpuscular Volume 85, Mean Corpuscular Hemoglobin 27.4, Mean Corpuscular Hemoglobin Concent 32.2, Red Cell Distribution Width 21.0H, Platelet Count 212, Mean Platelet Volume 6.3L, Neutrophils (%) (Auto) 82.3H, Lymphocytes (%) (Auto) 11.8L, Monocytes (%) (Auto) 2.8, Eosinophils (%) (Auto) 2.3, Basophils (%) (Auto) 0.8, Sodium Level 140, Potassium Level 4.4, Chloride Level 112H, Carbon Dioxide Level 21, Anion Gap 7, Blood Urea Nitrogen 4L, Creatinine 0.5L, Estimat Glomerular Filtration Rate > 60, Glucose Level 210#H, Hemoglobin A1c 6.9H, Calcium Level 7.0L, Total Bilirubin 0.4, Aspartate Amino Transf (AST/SGOT) 48H, Alanine Aminotransferase (ALT/SGPT) 18, Alkaline Phosphatase 79, Total Protein 5.5L, Albumin 2.2L, Globulin 3.3, Albumin/ Globulin Ratio 0.7L, Amylase Level 31, Lipase 34L Height (Feet): 5 Height (Inches): 0.00 Weight (Pounds): 121 Cardiovascular: normal rate Respiratory/Chest: lungs clear Abdomen: soft Edema: no edema noted Generalized Avi Vasquez MD May 01, 2019 14:51
--- NOTE | 2019-05-01 15:23 | Diagnostic Imaging Report ---
Indication: Chest pain Technique: Perfusion was performed with 6 mCi of technetium 99m-MAA injected intravenously. Multiple side by side projections obtained. Patient refused ventilation portion of the study due to claustrophobia. Findings: Perfusion appears slightly inhomogeneous. No segmental defects are seen. Impression: Essentially negative perfusion scan. Pulmonary embolus is doubtful. Study obvious a limited by lack of ventilation component
[2019-05-01 16:00] VITALS: BP 122/74
--- NOTE | 2019-05-01 16:39 | Pulmonology Progress Note ---
Assessment/Plan Assessment/Plan Pulmonary Consultation HPI Patient is a 44-year-old woman with previous history of Hypertension, Diabetes and Seizures, admitted with vaginal bleeding and abdominal pain x8 days. Complains of weakness/dizziness, had a recent fall in the shower, was admitted here recently for similar complaint and needed a blood transfusion. Denies being . No other aggravating relieving factors. Denies any other associated symptoms. Less SOB today, remain son oxygen. Stable H+H CXR: s/o Pulmonary Congestion, VQ normal scan Allergies: No Known Allergies Past Medical History: DM, HTN, Seizures Past Surgical History: none Pertinent Family History: none Social History: Denies: smoking, alcohol use, drug use Fell in the shower and hit her head one day prior to admission All Other Systems: negative except mentioned in HPI Physical Exam Vital Signs Noted Date Time Temp Pulse Resp B/P (MAP) Pulse Ox O2 Delivery O2 Flow Rate FiO2 04/29/19 20:44 98.6 88 18 90/59 (69) 100 Room Air General Appearance: no apparent distress, alert, GCS 15, non-toxic Head: normocephalic, atraumatic Eyes: bilateral eye normal inspection, bilateral eye PERRL ENT: hearing grossly normal, normal pharynx, no angioedema, normal voice Neck: full range of motion, supple/symm/no masses, No LN Respiratory: chest non-tender, lungs clear, normal breath sounds, speaking full sentences Cardiovascular: regular rate, rhythm, no edema, HS1, HS2, RRR Gastrointestinal: normal bowel sounds, soft, non-distended, no guarding, no rebound, tenderness Rectal: deferred Genitourinary: normal inspection, no CVA tenderness Musculoskeletal: back normal, gait/station normal, normal range of motion, non- tender Neurologic: alert, oriented x3, responsive, motor strength/tone normal, sensory intact, speech normal Impression: Dysfunctional uterine bleeding Sp previous blood transfusion Anemia Hypoxia on ABG Diabetes Hypertension Seizures Plan CXR Incentive spirometer REpeat ABG PRN HHN O2 PRN PPX Monitor Labs Admitted to telemetry in serious condition Labs Test 04/29/19 21:00 White Blood Count 6.9 K/UL (4.8-10.8) Red Blood Count 2.24 M/UL (4.20-5.40) Hemoglobin 5.4 G/DL (12.0-16.0) Hematocrit 17.2 % (37.0-47.0) Mean Corpuscular Volume 77 FL (80-99) Mean Corpuscular Hemoglobin 24.4 PG (27.0-31.0) Mean Corpuscular Hemoglobin Concent 31.7 G/DL (32.0-36.0) Red Cell Distribution Width 23.6 % (11.6-14.8) Platelet Count 298 K/UL (150-450) Mean Platelet Volume 5.9 FL (6.5-10.1) Neutrophils (%) (Auto) % (45.0-75.0) Lymphocytes (%) (Auto) % (20.0-45.0) Monocytes (%) (Auto) % (1.0-10.0) Eosinophils (%) (Auto) % (0.0-3.0) Basophils (%) (Auto) % (0.0-2.0) Prothrombin Time 9.8 SEC (9.30-11.50) Prothromb Time International Ratio 0.9 (0.9-1.1) Activated Partial Thromboplast Time 26 SEC (23-33) Urine Color Yellow Urine Appearance Cloudy Urine pH 5 (4.5-8.0) Urine Specific [place] 1.015 (1.005-1.035) Urine Protein 2+ (NEGATIVE) Urine Glucose (UA) 2+ (NEGATIVE) Urine Ketones 1+ (NEGATIVE) Urine Blood 5+ (NEGATIVE) Urine Nitrite Negative (NEGATIVE) Urine Bilirubin Negative (NEGATIVE) Urine Urobilinogen 1 MG/DL (0.0-1.0) Urine Leukocyte Esterase 2+ (NEGATIVE) Urine RBC Tntc /HPF (0 - 2) Urine WBC 10-15 /HPF (0 - 2) Urine Squamous Epithelial Cells Few /LPF (NONE/OCC) Urine Bacteria Few /HPF (NONE) Urine Mucus Few /LPF (NONE/OCC) Urine HCG, Qualitative Negative (NEGATIVE) Sodium Level 137 MMOL/L (136-145) Potassium Level 4.3 MMOL/L (3.5-5.1) Chloride Level 104 MMOL/L (98-107) Carbon Dioxide Level 26 MMOL/L (21-32) Anion Gap 7 mmol/L (5-15) Blood Urea Nitrogen 12 mg/dL (7-18) Creatinine 1.0 MG/DL (0.55-1.30) Estimat Glomerular Filtration Rate > 60 mL/min (>60) Glucose Level 140 MG/DL (74-106) Calcium Level 7.9 MG/DL (8.5-10.1) Total Bilirubin 0.2 MG/DL (0.2-1.0) Aspartate Amino Transf (AST/SGOT) 18 U/L (15-37) Alanine Aminotransferase (ALT/SGPT) 23 U/L (12-78) Alkaline Phosphatase 80 U/L (46-116) Total Protein 6.2 G/DL (6.4-8.2) Albumin 2.7 G/DL (3.4-5.0) Globulin 3.5 g/dL Albumin/Globulin Ratio 0.8 (1.0-2.7) Hematology Test 04/29/19 21:00 White Blood Count 6.9 K/UL (4.8-10.8) Red Blood Count 2.24 M/UL (4.20-5.40) L Hemoglobin 5.4 G/DL (12.0-16.0) *L Hematocrit 17.2 % (37.0-47.0) L Mean Corpuscular Volume 77 FL (80-99) L Mean Corpuscular Hemoglobin 24.4 PG (27.0-31.0) L Mean Corpuscular Hemoglobin Concent 31.7 G/DL (32.0-36.0) L Red Cell Distribution Width 23.6 % (11.6-14.8) H Platelet Count 298 K/UL (150-450) Mean Platelet Volume 5.9 FL (6.5-10.1) L Neutrophils (%) (Auto) % (45.0-75.0) Lymphocytes (%) (Auto) % (20.0-45.0) Monocytes (%) (Auto) % (1.0-10.0) Eosinophils (%) (Auto) % (0.0-3.0) Basophils (%) (Auto) % (0.0-2.0) Coagulation Test 04/29/19 21:00 Prothrombin Time 9.8 SEC (9.30-11.50) Prothromb Time International Ratio 0.9 (0.9-1.1) Activated Partial Thromboplast Time 26 SEC (23-33) Chemistry Test 04/29/19 21:00 Sodium Level 137 MMOL/L (136-145) Potassium Level 4.3 MMOL/L (3.5-5.1) Chloride Level 104 MMOL/L (98-107) Carbon Dioxide Level 26 MMOL/L (21-32) Anion Gap 7 mmol/L (5-15) Blood Urea Nitrogen 12 mg/dL (7-18) Creatinine 1.0 MG/DL (0.55-1.30) Estimat Glomerular Filtration Rate > 60 mL/min (>60) Glucose Level 140 MG/DL (74-106) H Calcium Level 7.9 MG/DL (8.5-10.1) L Total Bilirubin 0.2 MG/DL (0.2-1.0) Aspartate Amino Transf (AST/SGOT) 18 U/L (15-37) Alanine Aminotransferase (ALT/SGPT) 23 U/L (12-78) Alkaline Phosphatase 80 U/L (46-116) Total Protein 6.2 G/DL (6.4-8.2) L Albumin 2.7 G/DL (3.4-5.0) L Globulin 3.5 g/dL Albumin/Globulin Ratio 0.8 (1.0-2.7) L EKG: Rate: normal Rhythm: NSR ST Segments: no acute changes CXR: s/o Pulmonary Congestion, VQ normal scan Subjective ROS Limited/Unobtainable: No Allergies: Coded Allergies: No Known Allergies (Verified , 09/02/07) Objective Last 24 Hour Vital Signs Date Time Temp Pulse Resp B/P (MAP) Pulse Ox O2 Delivery O2 Flow Rate FiO2 05/01/19 12:00 98.6 88 16 112/73 (86) 95 05/01/19 12:00 93 05/01/19 09:00 Nasal Cannula 2.0 05/01/19 08:00 77 05/01/19 08:00 98.4 78 16 124/71 (88) 98 05/01/19 07:00 96 Nasal Cannula 3.0 32 05/01/19 04:00 97.8 79 17 113/67 (82) 98 05/01/19 04:00 77 05/01/19 00:00 98.8 75 18 108/64 (79) 92 05/01/19 00:00 78 04/30/19 21:00 Nasal Cannula 2.0 04/30/19 20:00 75 8/4/19 20:00 98.6 79 18 114/68 (83) 92 04/30/19 19:47 94 Nasal Cannula 3.0 32 Intake and Output 04/30/19 05/01/19 19:00 07:00 Intake Total 150 ml 1050 ml Output Total 1000 ml 700 ml Balance -850 ml 350 ml IV Total 150 ml 1050 ml Output Urine Total 1000 ml 700 ml # Voids 2 3 Microbiology Date/Time Source Procedure Growth Status 04/29/19 21:00 Urine,Clean Catch Urine Culture - Preliminary NO GROWTH Resulted Laboratory Tests 05/01/19 06:33: White Blood Count 8.0, Red Blood Count 3.75L, Hemoglobin 10.3L, Hematocrit 31.8L , Mean Corpuscular Volume 85, Mean Corpuscular Hemoglobin 27.4, Mean Corpuscular Hemoglobin Concent 32.2, Red Cell Distribution Width 21.0H, Platelet Count 212, Mean Platelet Volume 6.3L, Neutrophils (%) (Auto) 82.3H, Lymphocytes (%) (Auto) 11.8L, Monocytes (%) (Auto) 2.8, Eosinophils (%) (Auto) 2.3, Basophils (%) (Auto) 0.8, Sodium Level 140, Potassium Level 4.4, Chloride Level 112H, Carbon Dioxide Level 21, Anion Gap 7, Blood Urea Nitrogen 4L, Creatinine 0.5L, Estimat Glomerular Filtration Rate > 60, Glucose Level 210#H, Hemoglobin A1c 6.9H, Calcium Level 7.0L, Total Bilirubin 0.4, Aspartate Amino Transf (AST/SGOT) 48H, Alanine Aminotransferase (ALT/SGPT) 18, Alkaline Phosphatase 79, Total Protein 5.5L, Albumin 2.2L, Globulin 3.3, Albumin/ Globulin Ratio 0.7L, Amylase Level 31, Lipase 34L Current Medications Medications (Trade) Dose Ordered Sig/Alycia Route PRN Reason Start Time Stop Time Status Last Admin Dose Admin Acetaminophen (Tylenol) 650 mg Q4H PRN ORAL Mild Pain (Pain Scale 1-3) 04/29/19 22:45 05/29/19 22:44 04/30/19 10:12 Albuterol/ Ipratropium (Albuterol/ Ipratropium) 3 ml Q4H PRN HHN Shortness of Breath 04/30/19 15:45 8/9/19 15:44 Atorvastatin Calcium (Lipitor) 10 mg QHS ORAL 04/30/19 21:00 05/30/19 20:59 04/30/19 20:29 Ciprofloxacin (Cipro 500mg tab) 500 mg EVERY 12 HOURS ORAL 04/30/19 09:45 05/07/19 09:44 05/01/19 08:43 Dextrose (Dextrose 50%) 25 ml Q30M PRN IV Hypoglycemia 04/29/19 22:45 05/29/19 22:44 Dextrose (Dextrose 50%) 50 ml Q30M PRN IV Hypoglycemia 04/29/19 22:45 05/29/19 22:44 04/30/19 11:08 Dextrose/Sodium Chloride 1,000 ml @ 150 mls/hr Q6H40M IV 04/30/19 11:15 05/30/19 11:14 05/01/19 13:22 Ferrous Sulfate (Feosol) 325 mg TWICE A DAY ORAL 04/30/19 09:00 05/30/19 08:59 05/01/19 08:43 Insulin Aspart (NovoLOG) BEFORE MEALS AND HS SUBQ 04/30/19 06:30 05/30/19 06:29 05/01/19 11:21 Levothyroxine Sodium (Synthroid) 100 mcg DAILY@0630 ORAL 05/02/19 06:30 06/01/19 06:29 Magnesium Hydroxide (Mom) 30 ml HSPRN PRN ORAL Constipation 04/29/19 22:45 05/29/19 22:44 Metoclopramide HCl (Reglan) 10 mg Q6HR IVP 05/01/19 12:00 05/30/19 20:29 05/01/19 11:18 Morphine Sulfate (Morphine Sulfate) 2 mg Q2H PRN IVP For Pain 04/30/19 00:15 05/07/19 00:14 Morphine Sulfate (Morphine Sulfate) 4 mg Q2H PRN IVP For Pain 04/30/19 00:15 05/07/19 00:14 05/01/19 06:13 Ondansetron HCl (Zofran) 4 mg Q4HR PRN IVP Nausea & Vomiting 04/30/19 03:30 05/30/19 03:29 05/01/19 06:13 Prochlorperazine (Compazine) 25 mg Q12H PRN RECTAL Nausea & Vomiting 04/30/19 08:00 05/30/19 07:59 Zolpidem Tartrate (Ambien) 5 mg DAILYPRN PRN ORAL Insomnia 04/29/19 22:45 05/06/19 22:44 Wade Bean MD May 01, 2019 16:39
--- NOTE | 2019-05-01 19:59 | NUR ---
HAND-OFF: Report given to MARLYS Huber.
[2019-05-01 20:00] VITALS: BP 122/70
--- NOTE | 2019-05-01 20:15 | NUR ---
NURSE NOTES: Received report from MARLYS Eagle. Patient sitting up in bed awake showing no signs of acute distress. Respiration even and non labored on 2L nc O2. IV on Left FA 20g sl patent and intact. IV on right FA 18g on D5NS @150cc/hr patent and intact. Call light within reach. bed side up x2. Bed in lowest position, wheels locked and alarm on. All needs attended and met. Will continue plan of care.
[2019-05-02] VITALS: BP 131/78
[2019-05-02] MEDS: Metoclopramide 10mg/2ml Inj IVP SCH ×5 (00:43→23:11)
[2019-05-02 04:00] VITALS: BP 137/82
[2019-05-02] MEDS: D5NS 1,000 ML IV SCH ×2 (05:42→05:45)
[2019-05-02] MEDS: NovoLOG Insulin Flexpen SUBQ SCH ×4 (05:44→21:00)
--- NOTE | 2019-05-02 07:30 | NUR ---
HAND-OFF: Report given to MARLYS Guerrero.
--- NOTE | 2019-05-02 07:40 | NUR ---
NURSE NOTES: received pt at 0740. pt is alertx O4. no sob, no pain at this moment. pt is ready to eat clear liquid diet.
--- NOTE | 2019-05-02 07:45 | NUR ---
NURSE NOTES: spoke with DR. Vasquez by telephone. received order to discontinue the IV fluid. encourage pt to eat breakfast meal.
[2019-05-02 08:00] VITALS: BP 138/85
[2019-05-02] MEDS: Ciprofloxacin 500mg tab ORAL SCH ×2 (09:02→20:13)
--- NOTE | 2019-05-02 10:29 | GI Progress Note ---
Assessment/Plan Problems: (1) Anemia ICD Codes: D64.9 - Anemia, unspecified SNOMED: 483108192 Qualifiers: Qualified Codes: D64.9 - Anemia, unspecified (2) Vaginal bleeding ICD Codes: N89.8 - Other specified noninflammatory disorders of vagina SNOMED: 340787391 (3) Fibroid ICD Codes: D25.9 - Leiomyoma of uterus, unspecified SNOMED: 76724518 (4) Abdominal pain ICD Codes: R10.9 - Abdominal pain SNOMED: 83362372 (5) Iron deficiency ICD Codes: E61.1 - Iron deficiency SNOMED: 74282632 Status: unchanged Status Narrative Discussed with Dr. Correia. Assessment/Plan [facility] TILER eval transfuse to keep HGB above 7 KUB>>pending change reglan to ATC adv diet as tolerated The patient was seen and examined at bedside and all new and available data was reviewed in the patients chart. I agree with the above findings, impression and plan. (Patient seen earlier today. Signature stamp does not reflect patient encounter time.). - Edin Correia MD Subjective Gastrointestinal/Abdominal: Reports: no symptoms Objective Last 24 Hour Vital Signs Date Time Temp Pulse Resp B/P (MAP) Pulse Ox O2 Delivery O2 Flow Rate FiO2 05/02/19 08:00 98.5 79 18 138/85 (102) 94 05/02/19 07:54 79 05/02/19 04:00 76 05/02/19 04:00 98.3 78 18 137/82 (100) 95 05/02/19 00:00 75 05/02/19 00:00 98.4 79 18 131/78 (95) 96 05/01/19 21:00 Nasal Cannula 2.0 05/01/19 20:12 97 Nasal Cannula 2.0 28 05/01/19 20:12 76 20 97 Nasal Cannula 2.0 28 05/01/19 20:00 98.6 79 18 122/70 (87) 98 05/01/19 20:00 79 05/01/19 16:00 98.2 79 20 122/74 (90) 100 05/01/19 16:00 78 05/01/19 12:00 98.6 88 16 112/73 (86) 95 05/01/19 12:00 93 Intake and Output 05/01/19 05/02/19 19:00 07:00 Intake Total 120 ml 1197.5 ml Balance 120 ml 1197.5 ml Intake Oral 120 ml 240 ml IV Total 957.5 ml # Voids 3 3 Height (Feet): 5 Height (Inches): 0.00 Weight (Pounds): 121 General Appearance: WD/WN, no apparent distress, alert Cardiovascular: normal rate Respiratory/Chest: normal breath sounds, no respiratory distress Abdominal Exam: normal bowel sounds, non tender, soft Extremities: normal range of motion, non-tender Sanjeev Early PRIZER HAND May 02, 2019 10:29
[2019-05-02 11:45] VITALS: BP 142/81
--- NOTE | 2019-05-02 13:30 | Pulmonology Progress Note ---
Assessment/Plan Assessment/Plan Pulmonary Consultation HPI Patient is a 44-year-old woman with previous history of Hypertension, Diabetes and Seizures, admitted with vaginal bleeding and abdominal pain x8 days. Complains of weakness/dizziness, had a recent fall in the shower, was admitted here recently for similar complaint and needed a blood transfusion. Denies being . No other aggravating relieving factors. Denies any other associated symptoms. Less SOB today, remain son oxygen. Stable H+H CXR: s/o Pulmonary Congestion, VQ normal scan Allergies: No Known Allergies Past Medical History: DM, HTN, Seizures Past Surgical History: none Pertinent Family History: none Social History: Denies: smoking, alcohol use, drug use Fell in the shower and hit her head one day prior to admission All Other Systems: negative except mentioned in HPI Physical Exam Vital Signs Noted Date Time Temp Pulse Resp B/P (MAP) Pulse Ox O2 Delivery O2 Flow Rate FiO2 04/29/19 20:44 98.6 88 18 90/59 (69) 100 Room Air General Appearance: no apparent distress, alert, GCS 15, non-toxic Head: normocephalic, atraumatic Eyes: bilateral eye normal inspection, bilateral eye PERRL ENT: hearing grossly normal, normal pharynx, no angioedema, normal voice Neck: full range of motion, supple/symm/no masses, No LN Respiratory: chest non-tender, lungs clear, normal breath sounds, speaking full sentences Cardiovascular: regular rate, rhythm, no edema, HS1, HS2, RRR Gastrointestinal: normal bowel sounds, soft, non-distended, no guarding, no rebound, tenderness Rectal: deferred Genitourinary: normal inspection, no CVA tenderness Musculoskeletal: back normal, gait/station normal, normal range of motion, non- tender Neurologic: alert, oriented x3, responsive, motor strength/tone normal, sensory intact, speech normal Impression: Dysfunctional uterine bleeding Sp previous blood transfusion Anemia Hypoxia on ABG Diabetes Hypertension Seizures Plan Incentive spirometer Diurese PRN PRN HHN O2 PRN PPX Monitor Labs Admitted to telemetry in serious condition Labs noted EKG: Rate: normal Rhythm: NSR ST Segments: no acute changes CXR: s/o Pulmonary Congestion, VQ normal scan Subjective ROS Limited/Unobtainable: No Allergies: Coded Allergies: No Known Allergies (Verified , 09/02/07) Objective Last 24 Hour Vital Signs Date Time Temp Pulse Resp B/P (MAP) Pulse Ox O2 Delivery O2 Flow Rate FiO2 05/02/19 11:45 98.8 79 18 142/81 (101) 98 05/02/19 11:35 76 05/02/19 09:00 Nasal Cannula 2.0 05/02/19 08:50 99 Room Air 21 05/02/19 08:50 79 20 99 Room Air 21 05/02/19 08:00 98.5 79 18 138/85 (102) 94 05/02/19 07:54 79 05/02/19 04:00 76 05/02/19 04:00 98.3 78 18 137/82 (100) 95 05/02/19 00:00 75 05/02/19 00:00 98.4 79 18 131/78 (95) 96 05/01/19 21:00 Nasal Cannula 2.0 05/01/19 20:12 97 Nasal Cannula 2.0 28 05/01/19 20:12 76 20 97 Nasal Cannula 2.0 28 05/01/19 20:00 98.6 79 18 122/70 (87) 98 05/01/19 20:00 79 05/01/19 16:00 98.2 79 20 122/74 (90) 100 05/01/19 16:00 78 Intake and Output 05/01/19 05/02/19 19:00 07:00 Intake Total 120 ml 1197.5 ml Balance 120 ml 1197.5 ml Intake Oral 120 ml 240 ml IV Total 957.5 ml # Voids 3 3 Microbiology Date/Time Source Procedure Growth Status 04/30/19 05:00 Nasal Nares MRSA Culture - Final NO METHICILLIN RESISTANT STAPH AUREUS... Complete 04/29/19 21:00 Urine,Clean Catch Urine Culture - Preliminary NO GROWTH AFTER 24 HOURS Resulted 04/30/19 05:00 Rectum VRE Culture - Final NO VANCOMYCIN RESISTANT ENTEROCOCCUS ... Complete 04/30/19 05:00 Rectum - Final NO CARBAPENEM-RESISTANT ENTEROBACTERI... Complete Current Medications Medications (Trade) Dose Ordered Sig/Alycia Route PRN Reason Start Time Stop Time Status Last Admin Dose Admin Acetaminophen (Tylenol) 650 mg Q4H PRN ORAL Mild Pain (Pain Scale 1-3) 04/29/19 22:45 05/29/19 22:44 04/30/19 10:12 Albuterol/ Ipratropium (Albuterol/ Ipratropium) 3 ml Q4H PRN HHN Shortness of Breath 04/30/19 15:45 05/05/19 15:44 Atorvastatin Calcium (Lipitor) 10 mg QHS ORAL 04/30/19 21:00 05/30/19 20:59 05/01/19 21:37 Ciprofloxacin (Cipro 500mg tab) 500 mg EVERY 12 HOURS ORAL 04/30/19 09:45 05/07/19 09:44 05/02/19 09:02 Dextrose (Dextrose 50%) 25 ml Q30M PRN IV Hypoglycemia 04/29/19 22:45 05/29/19 22:44 Dextrose (Dextrose 50%) 50 ml Q30M PRN IV Hypoglycemia 04/29/19 22:45 05/29/19 22:44 04/30/19 11:08 Ferrous Sulfate (Feosol) 325 mg TWICE A DAY ORAL 04/30/19 09:00 05/30/19 08:59 05/02/19 09:02 Insulin Aspart (NovoLOG) BEFORE MEALS AND HS SUBQ 04/30/19 06:30 05/30/19 06:29 05/02/19 11:49 Levothyroxine Sodium (Synthroid) 100 mcg DAILY@0630 ORAL 05/02/19 06:30 06/01/19 06:29 05/02/19 05:42 Magnesium Hydroxide (Mom) 30 ml HSPRN PRN ORAL Constipation 04/29/19 22:45 05/29/19 22:44 Metoclopramide HCl (Reglan) 10 mg Q6HR IVP 05/01/19 12:00 05/30/19 20:29 05/02/19 11:52 Morphine Sulfate (Morphine Sulfate) 2 mg Q2H PRN IVP For Pain 04/30/19 00:15 05/07/19 00:14 Morphine Sulfate (Morphine Sulfate) 4 mg Q2H PRN IVP For Pain 04/30/19 00:15 05/07/19 00:14 05/01/19 06:13 Ondansetron HCl (Zofran) 4 mg Q4HR PRN IVP Nausea & Vomiting 04/30/19 03:30 05/30/19 03:29 05/01/19 06:13 Prochlorperazine (Compazine) 25 mg Q12H PRN RECTAL Nausea & Vomiting 04/30/19 08:00 05/30/19 07:59 Zolpidem Tartrate (Ambien) 5 mg DAILYPRN PRN ORAL Insomnia 04/29/19 22:45 05/06/19 22:44 Wade Bean MD May 02, 2019 13:30
--- NOTE | 2019-05-02 14:25 | NUR ---
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 98.8 HR 79 RR 18 B/P 142/81 2L NC O2 SAT @ 98% IS: LASIX PO CIPRO PO LOTENSIN PO TELE STATUS
--- NOTE | 2019-05-02 14:34 | General Progress Note ---
Assessment/Plan Problem List: (1) Vaginal bleeding (2) anemia (3) Hypothyroidism ICD Codes: E03.9 - Hypothyroidism, unspecified SNOMED: 80412646 (4) DM (diabetes mellitus) ICD Codes: E11.9 - DM (diabetes mellitus) SNOMED: 72789183 (5) Abdominal pain ICD Codes: R10.9 - Abdominal pain SNOMED: 49290564 (6) CHF (congestive heart failure) ICD Codes: I50.9 - Heart failure, unspecified SNOMED: 88448939 Status: unchanged Status Narrative vaginal bleed stopped Assessment/Plan: start Toan inhibitors Start Lasix Discussed with RN cont synthroid start Metformin Subjective Allergies: Coded Allergies: No Known Allergies (Verified , 09/02/07) Subjective feels better Objective Last 24 Hour Vital Signs Date Time Temp Pulse Resp B/P (MAP) Pulse Ox O2 Delivery O2 Flow Rate FiO2 05/02/19 11:45 98.8 79 18 142/81 (101) 98 05/02/19 11:35 76 05/02/19 09:00 Nasal Cannula 2.0 05/02/19 08:50 99 Room Air 21 05/02/19 08:50 79 20 99 Room Air 21 05/02/19 08:00 98.5 79 18 138/85 (102) 94 05/02/19 07:54 79 05/02/19 04:00 76 05/02/19 04:00 98.3 78 18 137/82 (100) 95 05/02/19 00:00 75 05/02/19 00:00 98.4 79 18 131/78 (95) 96 05/01/19 21:00 Nasal Cannula 2.0 05/01/19 20:12 97 Nasal Cannula 2.0 28 05/01/19 20:12 76 20 97 Nasal Cannula 2.0 28 05/01/19 20:00 98.6 79 18 122/70 (87) 98 05/01/19 20:00 79 05/01/19 16:00 98.2 79 20 122/74 (90) 100 05/01/19 16:00 78 Intake and Output 05/01/19 05/02/19 18:59 06:59 Intake Total 120 ml 1077.5 ml Balance 120 ml 1077.5 ml Intake Oral 120 ml 120 ml IV Total 957.5 ml # Voids 3 3 Height (Feet): 5 Height (Inches): 0.00 Weight (Pounds): 121 Cardiovascular: normal rate Respiratory/Chest: lungs clear Abdomen: soft Edema: no edema noted Generalized Avi Vasquez MD May 02, 2019 14:34
[2019-05-02] MEDS: Furosemide 40mg tab ORAL SCH (14:37)
[2019-05-02 16:00] VITALS: BP 148/88
--- NOTE | 2019-05-02 19:18 | NUR ---
HAND-OFF: Report given to Philip Cruz RN.
--- NOTE | 2019-05-02 19:19 | NUR ---
NURSE NOTES: RECEIVED PATIENT SITTING IN CHAIR, NO COMPLAINTS OF DIZZINESS OR PAIN AT THIS TIME. FALL AND SEIZURE PRECAUTIONS IN PLACE: CALL LIGHT AND BEDSIDE TABLE WITHIN REACH, BED IN LOW POSITION AND SIDE RAILS PADDED. PLAN OF CARE REVIEWED.
--- NOTE | 2019-05-02 19:44 | Cardiology Progress Note ---
Assessment/Plan Assessment/Plan [id number] need more lasix bp med ecotrin statin echo repeat ekg cardaic enzyme Objective Last 24 Hour Vital Signs Date Time Temp Pulse Resp B/P (MAP) Pulse Ox O2 Delivery O2 Flow Rate FiO2 05/02/19 19:43 98 Room Air 21 05/02/19 19:42 77 18 98 Room Air 21 05/02/19 16:00 98.7 77 20 148/88 (108) 100 05/02/19 15:41 74 05/02/19 14:37 142/81 05/02/19 11:45 98.8 79 18 142/81 (101) 98 05/02/19 11:35 76 05/02/19 09:00 Nasal Cannula 2.0 05/02/19 08:50 99 Room Air 21 05/02/19 08:50 79 20 99 Room Air 21 05/02/19 08:00 98.5 79 18 138/85 (102) 94 05/02/19 07:54 79 05/02/19 04:00 76 05/02/19 04:00 98.3 78 18 137/82 (100) 95 05/02/19 00:00 75 05/02/19 00:00 98.4 79 18 131/78 (95) 96 05/01/19 21:00 Nasal Cannula 2.0 05/01/19 20:12 97 Nasal Cannula 2.0 28 05/01/19 20:12 76 20 97 Nasal Cannula 2.0 28 05/01/19 20:00 98.6 79 18 122/70 (87) 98 05/01/19 20:00 79 Intake and Output 05/01/19 05/02/19 19:00 07:00 Intake Total 120 ml 1197.5 ml Balance 120 ml 1197.5 ml Intake Oral 120 ml 240 ml IV Total 957.5 ml # Voids 3 3 Microbiology Date/Time Source Procedure Growth Status 04/30/19 05:00 Nasal Nares MRSA Culture - Final NO METHICILLIN RESISTANT STAPH AUREUS... Complete 04/29/19 21:00 Urine,Clean Catch Urine Culture - Preliminary NO GROWTH AFTER 24 HOURS Resulted 04/30/19 05:00 Rectum VRE Culture - Final NO VANCOMYCIN RESISTANT ENTEROCOCCUS ... Complete 04/30/19 05:00 Rectum - Final NO CARBAPENEM-RESISTANT ENTEROBACTERI... Complete Adriano Patel MD May 02, 2019 19:44
[2019-05-02 20:00] VITALS: BP 154/93
--- NOTE | 2019-05-02 20:51 | CDS Physician Query ---
Clarification is required for compliance, coding accuracy, and to reflect severity of illness for this patient Dear Dr. 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 Cxr- pulmonary vascular congestion, small pleural effusion, impression CHF. Started Lasix 40 mg po daily, Lotensin 40 mg po daily. "Heart Failure / CHF" documented in Please Clarify: Acuity [] Acute [] Chronic [x] Acute on Chronic Type [] Systolic [] Diastolic [] Systolic & Diastolic (Combined) [] Other: Present on Admission: [] Yes [x] No [] Clinically Undetermined Physician signature Date Please also document in your Progress Notes and/or Discharge Summary and indicate if the condition was present on admission. MTDD
--- NOTE | 2019-05-02 21:14 | NUR ---
NURSE NOTES: CALLED DR. Rylee ALFONSO AND LEFT MESSAGE RE PATIENT BS 63. ORANGE JUICE GIVEN AND RE CHECKED BS 53. D50 GIVEN AND LAB CALLED FOR STAT BS DRAW. PATIENT ASYMPTOMATIC.
--- NOTE | 2019-05-02 21:38 | NUR ---
NURSE NOTES: DR. Sally ALFONSO CALLED WITH NEW ORDER TO START IVF D10 AT 50 ML/HR AND RECHECK BS IN 2 HRS. IF BS> 200 STOP IVF
--- NOTE | 2019-05-02 21:45 | Consultation ---
DATE OF CONSULTATION: 05/02/2019 CARDIOLOGY CONSULTATION CONSULTING PHYSICIAN: Adriano Patel M.D. REFERRING PHYSICIAN: Avi Vasquez M.D. REASON FOR REFERRAL: Chest pain and congestive heart failure. HISTORY OF PRESENT ILLNESS: This is a 44-year-old female, who has had several hospitalizations here at [facility] including some in March. The patient tells me through a data warehouse architect that she has had some pain that is constantly present for weeks at a time from over the past 2 months or so. She is somewhat of a poor historian, but seems that pain is present no matter what she does, but there are some positions that the pain gets worse including twisting, turning, taking a deep breath, coughing, laying down, sitting up, and even walking. She is really not sure which one of those positions however make the pain worse. She does have orthopnea 2 pillows, sometimes the shortness of breath is associated with . Her took her to the emergency room. She has occasional palpitations, occasional dizziness, and lightheadedness. PAST MEDICAL HISTORY: Positive for history of chest pains. She has been admitted here on prior occasions in fact several hospitalizations. Previously has seen several cardiologists and has had various diagnoses, but pericarditis was something that they previously have been concerned about, but not treated. She has also had several echocardiograms on prior occasions. In fact, her last echo showed ejection fraction of 45 to 50% back in 04/04/2019 with akinetic posterior wall and inferior wall and inferolateral fitch at that time. She has [id number] mitral regurgitation and PA pressure of 52 mmHg. She also carries a diagnoses of severe anemia secondary to acute blood loss secondary to vaginal bleeding, hypothyroidism with medication noncompliance, non-ST elevation [place] likely secondary to anemia iron deficiency, diabetes mellitus poorly controlled, history of bilateral pleural effusions status post thoracentesis, abnormal liver function tests, malnutrition. ALLERGIES: She has no known drug allergies. SOCIAL HISTORY: She does not smoke or drink. No drugs. REVIEW OF SYSTEMS: GASTROINTESTINAL: She has had constipation. GENITOURINARY: She denies any burning on urination. She does have vaginal bleeding previously not recently. PULMONARY: Her daughter told her that she may have asthma. CONSTITUTIONAL: Negative. PHYSICAL EXAMINATION: GENERAL: Shows middle-aged female, in no respiratory distress. HEENT: Unremarkable. NECK: Supple. No jugular venous distention. No abdominojugular reflux. LUNGS: Clear to auscultation and percussion. CARDIAC: S1 is normal. S2 is normal. Regular rate and rhythm. No heaves, thrills, gallops, or rubs are noted. There is no friction rub. ABDOMEN: Soft, nontender. Positive bowel sounds. EXTREMITIES: There is no clubbing, cyanosis. There is no edema. DIAGNOSTIC AND LABORATORY DATA: Her electrocardiogram shows sinus rhythm. There are no ST or T-wave abnormalities on the EKG of any concern although she has a leftward axis and nonspecific T-wave abnormalities. She has had labs including white count of 8, hemoglobin 10.3, and platelet count of 212. Blood gases, pH of 7.3, pCO2 35, pO2 59, bicarbonate of 19 with 90% saturation. Chemistries, sodium is 140, potassium 4.4, chloride 112, bicarb 21, BUN 4, creatinine 0.5, glucose of 210. A1c of 6.9. Calcium of 7. Total protein is 5.5. TSH of 41, it has been as high as 39 during the last hospitalization and as low as 6 in 2006. Her total cholesterol has been 108 with LDL of 63. Her cardiac enzymes last checked were back in March with a level of 4.6. ASSESSMENT AND PLAN: 1. Atypical chest pain, chronic in nature. 2. Diabetes mellitus. 3. History of anemia secondary to vaginal bleeding. 4. Hypothyroidism with medication noncompliance. 5. Left ventricular systolic dysfunction. 6. Congestive heart failure. Dr. Vasquez, this patient was seen in cardiac consultation. The patient does give a history of only taking insulin at home, but none of other medications. She was in fact never given those medications. This patient will be continued on diuretics. Blood pressure treatment with the use of SUYAPA inhibitors maybe in order in addition to diuretics. Aspirin should be administered. Serial cardiac exams, natriuretic peptide will be ordered for tomorrow morning. An echocardiogram will be repeated for evaluation of further systolic dysfunction compared to on prior echocardiography and she may need other testing as well. Adriano Patel M.D. DR: DUANE JOB#: [id number] CC:
[2019-05-02] MEDS: Dextrose 10% 1,000 ML IV SCH (22:37)
[2019-05-03] VITALS (7 sets, daily range): BP systolic 90–148; BP diastolic 62–88
[2019-05-03] MEDS: Metoclopramide 10mg/2ml Inj IVP SCH ×3 (05:39→18:00)
[2019-05-03 06:24] LABS: BASOPHILS % (AUTO) 0.7 % (0.0-2.0); EOSINOPHILS % (AUTO) 5.9 % (0.0-3.0); HEMATOCRIT 33.1 % (37.0-47.0); HEMOGLOBIN 10.8 G/DL (12.0-16.0); LYMPHOCYTES % (AUTO) 19.1 % (20.0-45.0); MEAN CORPUSCULAR VOLUME 82 FL (80-99); MONOCYTES % (AUTO) 2.9 % (1.0-10.0); NEUTROPHILS % (AUTO) 71.4 % (45.0-75.0); PLATELET COUNT 316 K/UL (150-450); RED BLOOD COUNT 4.02 M/UL (4.20-5.40); RED CELL DISTRIBUTION WIDTH 19.7 % (11.6-14.8); WHITE BLOOD COUNT 5.7 K/UL (4.8-10.8)
[2019-05-03] MEDS: NovoLOG Insulin Flexpen SUBQ SCH ×4 (06:24→22:33)
[2019-05-03 06:51] LABS: ANION GAP 10 mmol/L (5-15); BLOOD UREA NITROGEN 4 mg/dL (7-18); CALCIUM 7.9 MG/DL (8.5-10.1); CARBON DIOXIDE 28 MMOL/L (21-32); CHLORIDE 104 MMOL/L (98-107); CREATININE 0.6 MG/DL (0.55-1.30); SODIUM 141 MMOL/L (136-145)
[2019-05-03 07:01] LABS: CREATINE KINASE 162 U/L (26-308)
--- NOTE | 2019-05-03 07:31 | NUR ---
NURSE NOTES: Pt in bed at first was asleep but on second rounding was awake and Ox4, pt is able to walk steadily to restroom, pt on a clear liquid diet due to a vomiting episode, troponin came back at 2.565 and Md Quevedo and Jorge notified and Christina Chairez Rn received orders from Jorge in which she entered. Pt denies chest pain at this time, EF was noted to be at 40-45%, IV is LT F 20 and RT F 22 both asymptomatic and patent, call light at bedside, also reported last bowel movement was 04/29/19 but pt reports 05/02/19, no s/s of distress or sob noted will call Md for a low level of potassium of 3.0.
--- NOTE | 2019-05-03 07:32 | NUR ---
NURSE NOTES: RECEIVED CALL FROM LAB [facility] 2.565. DR. GR MADE AWARE. NEW ORDERS OBTAINED. ENDORSED TO INCOMING RN TO FOLLOW UP.
--- NOTE | 2019-05-03 07:33 | NUR ---
HAND-OFF: Report given to .Ashok DAVIS RN. PATIENT HAVING BREAKFAST, NO SIGNS OF DISTRESS NOTED.
--- NOTE | 2019-05-03 08:50 | Pulmonology Progress Note ---
Assessment/Plan Assessment/Plan Pulmonary Progress Note HPI Patient is a 44-year-old woman with previous history of Hypertension, Diabetes and Seizures, admitted with vaginal bleeding and abdominal pain x8 days. Complains of weakness/dizziness, had a recent fall in the shower, was admitted here recently for similar complaint and needed a blood transfusion. Denies being . No other aggravating relieving factors. Denies any other associated symptoms. Less SOB today, remain son oxygen. Stable H+H CXR: s/o Pulmonary Congestion, VQ normal scan Allergies: No Known Allergies Past Medical History: DM, HTN, Seizures Past Surgical History: none Pertinent Family History: none Social History: Denies: smoking, alcohol use, drug use Fell in the shower and hit her head one day prior to admission All Other Systems: negative except mentioned in HPI Physical Exam Vital Signs Noted Date Time Temp Pulse Resp B/P (MAP) Pulse Ox O2 Delivery O2 Flow Rate FiO2 04/29/19 20:44 98.6 88 18 90/59 (69) 100 Room Air General Appearance: no apparent distress, alert, GCS 15, non-toxic Head: normocephalic, atraumatic Eyes: bilateral eye normal inspection, bilateral eye PERRL ENT: hearing grossly normal, normal pharynx, no angioedema, normal voice Neck: full range of motion, supple/symm/no masses, No LN Respiratory: chest non-tender, lungs clear, normal breath sounds, speaking full sentences Cardiovascular: regular rate, rhythm, no edema, HS1, HS2, RRR Gastrointestinal: normal bowel sounds, soft, non-distended, no guarding, no rebound, tenderness Rectal: deferred Genitourinary: normal inspection, no CVA tenderness Musculoskeletal: back normal, gait/station normal, normal range of motion, non- tender Neurologic: alert, oriented x3, responsive, motor strength/tone normal, sensory intact, speech normal Impression: Dysfunctional uterine bleeding Sp previous blood transfusion Anemia Hypoxia on ABG Diabetes Hypertension Seizures Plan Incentive spirometer Diurese PRN PRN HHN O2 PRN PPX Monitor Labs Admitted to telemetry in serious condition Labs noted EKG: Rate: normal Rhythm: NSR ST Segments: no acute changes CXR: s/o Pulmonary Congestion, VQ normal scan Subjective ROS Limited/Unobtainable: No Allergies: Coded Allergies: No Known Allergies (Verified , 09/02/07) Objective Last 24 Hour Vital Signs Date Time Temp Pulse Resp B/P (MAP) Pulse Ox O2 Delivery O2 Flow Rate FiO2 05/03/19 08:25 Room Air 05/03/19 08:10 98.1 76 18 90/62 (71) 95 05/03/19 04:00 98.1 75 18 148/86 (106) 97 05/03/19 04:00 72 05/03/19 00:00 75 05/03/19 00:00 97.4 74 18 141/85 (103) 96 05/02/19 21:00 Room Air 05/02/19 20:00 74 05/02/19 20:00 97.2 76 18 154/93 (113) 100 05/02/19 19:43 98 Room Air 21 05/02/19 19:42 77 18 98 Room Air 21 05/02/19 16:00 98.7 77 20 148/88 (108) 100 05/02/19 15:41 74 05/02/19 14:37 142/81 05/02/19 11:45 98.8 79 18 142/81 (101) 98 05/02/19 11:35 76 05/02/19 09:00 Nasal Cannula 2.0 Intake and Output 05/02/19 05/03/19 19:00 07:00 Intake Total 280 ml 510 ml Balance 280 ml 510 ml Intake Oral 280 ml 360 ml IV Total 150 ml # Voids 3 4 Laboratory Tests 05/02/19 20:55: Glucose Level 150H 05/03/19 05:09: Glucose Level 291#H, White Blood Count 5.7, Red Blood Count 4.02L, Hemoglobin 10.8L, Hematocrit 33.1L, Mean Corpuscular Volume 82, Mean Corpuscular Hemoglobin 26.8L, Mean Corpuscular Hemoglobin Concent 32.5, Red Cell Distribution Width 19.7H, Platelet Count 316, Mean Platelet Volume 5.4L, Neutrophils (%) (Auto) 71.4, Lymphocytes (%) (Auto) 19.1L, Monocytes (%) (Auto) 2.9, Eosinophils (%) (Auto) 5.9H, Basophils (%) (Auto) 0.7, Sodium Level 141, Potassium Level 3.0L, Chloride Level 104, Carbon Dioxide Level 28, Anion Gap 10 , Blood Urea Nitrogen 4L, Creatinine 0.6, Estimat Glomerular Filtration Rate > 60, Calcium Level 7.9L, Magnesium Level 1.5L, Total Creatine Kinase 162, Troponin I 2.565H, Pro-B-Type Natriuretic Peptide [id number] Current Medications Medications (Trade) Dose Ordered Sig/Alycia Route PRN Reason Start Time Stop Time Status Last Admin Dose Admin Acetaminophen (Tylenol) 650 mg Q4H PRN ORAL Mild Pain (Pain Scale 1-3) 04/29/19 22:45 05/29/19 22:44 04/30/19 10:12 Albuterol/ Ipratropium (Albuterol/ Ipratropium) 3 ml Q4H PRN HHN Shortness of Breath 04/30/19 15:45 05/05/19 15:44 Aspirin (ASA) 81 mg DAILY ORAL 05/03/19 07:30 06/02/19 07:29 Atorvastatin Calcium (Lipitor) 80 mg BEDTIME ORAL 05/03/19 21:00 06/02/19 20:59 Benazepril HCl (Lotensin) 40 mg DAILY ORAL 05/02/19 14:21 06/01/19 14:20 05/02/19 14:37 Ciprofloxacin (Cipro 500mg tab) 500 mg EVERY 12 HOURS ORAL 04/30/19 09:45 05/07/19 09:44 05/02/19 20:13 Dextrose 1,000 ml @ 50 mls/hr Q20H IV 05/02/19 22:30 06/01/19 22:29 05/02/19 22:37 Dextrose (Dextrose 50%) 25 ml Q30M PRN IV Hypoglycemia 04/29/19 22:45 05/29/19 22:44 Dextrose (Dextrose 50%) 50 ml Q30M PRN IV Hypoglycemia 04/29/19 22:45 05/29/19 22:44 05/02/19 20:19 Ferrous Sulfate (Feosol) 325 mg TWICE A DAY ORAL 04/30/19 09:00 05/30/19 08:59 05/02/19 17:13 Furosemide (Lasix) 40 mg DAILY ORAL 05/02/19 14:21 06/01/19 14:20 05/02/19 14:37 Insulin Aspart (NovoLOG) BEFORE MEALS AND HS SUBQ 04/30/19 06:30 05/30/19 06:29 05/03/19 06:24 Levothyroxine Sodium (Synthroid) 100 mcg DAILY@0630 ORAL 05/02/19 06:30 06/01/19 06:29 05/03/19 05:46 Magnesium Hydroxide (Mom) 30 ml HSPRN PRN ORAL Constipation 04/29/19 22:45 05/29/19 22:44 Metoclopramide HCl (Reglan) 10 mg Q6HR IVP 05/01/19 12:00 05/30/19 20:29 05/03/19 05:39 Metoprolol Tartrate (Lopressor) 12.5 mg Q12HR ORAL 05/03/19 07:30 06/02/19 07:29 Morphine Sulfate (Morphine Sulfate) 2 mg Q2H PRN IVP For Pain 04/30/19 00:15 05/07/19 00:14 Morphine Sulfate (Morphine Sulfate) 4 mg Q2H PRN IVP For Pain 04/30/19 00:15 05/07/19 00:14 05/01/19 06:13 Ondansetron HCl (Zofran) 4 mg Q4HR PRN IVP Nausea & Vomiting 04/30/19 03:30 05/30/19 03:29 05/01/19 06:13 Prochlorperazine (Compazine) 25 mg Q12H PRN RECTAL Nausea & Vomiting 04/30/19 08:00 05/30/19 07:59 Zolpidem Tartrate (Ambien) 5 mg DAILYPRN PRN ORAL Insomnia 04/29/19 22:45 05/06/19 22:44 Wade Bean MD May 03, 2019 08:50
[2019-05-03] MEDS: Metoprolol Tartrate 12.5mg TAB ORAL SCH ×2 (08:58→22:16)
[2019-05-03] MEDS: Aspirin Baby 81mg ORAL SCH (08:58)
[2019-05-03] MEDS: Furosemide 40mg tab ORAL SCH (08:59)
[2019-05-03] MEDS: Ciprofloxacin 500mg tab ORAL SCH (08:59)
--- NOTE | 2019-05-03 10:16 | GI Progress Note ---
Assessment/Plan Problems: (1) Anemia ICD Codes: D64.9 - Anemia, unspecified SNOMED: 965834137 Qualifiers: Qualified Codes: D64.9 - Anemia, unspecified (2) Vaginal bleeding ICD Codes: N89.8 - Other specified noninflammatory disorders of vagina SNOMED: 123764594 (3) Fibroid ICD Codes: D25.9 - Leiomyoma of uterus, unspecified SNOMED: 63512730 (4) Abdominal pain ICD Codes: R10.9 - Abdominal pain SNOMED: 97429003 (5) Iron deficiency ICD Codes: E61.1 - Iron deficiency SNOMED: 90716079 Status: stable, unchanged Status Narrative Discussed with Dr. Correia. Assessment/Plan LITIGATION LEGAL SECRETARY eval transfuse to keep HGB above 7 KUB negative reglan ATC ppi adv diet as tolerated follow labs The patient was seen and examined at bedside and all new and available data was reviewed in the patients chart. I agree with the above findings, impression and plan. (Patient seen earlier today. Signature stamp does not reflect patient encounter time.). - Edin Correia MD Subjective Gastrointestinal/Abdominal: Reports: no symptoms Objective Last 24 Hour Vital Signs Date Time Temp Pulse Resp B/P (MAP) Pulse Ox O2 Delivery O2 Flow Rate FiO2 05/03/19 08:59 131/81 05/03/19 08:58 76 131/81 05/03/19 08:45 98.1 78 18 131/81 (98) 95 05/03/19 08:25 Room Air 05/03/19 08:10 98.1 76 18 90/62 (71) 95 05/03/19 04:00 98.1 75 18 148/86 (106) 97 05/03/19 04:00 72 05/03/19 00:00 75 05/03/19 00:00 97.4 74 18 141/85 (103) 96 05/02/19 21:00 Room Air 05/02/19 20:00 74 05/02/19 20:00 97.2 76 18 154/93 (113) 100 05/02/19 19:43 98 Room Air 21 05/02/19 19:42 77 18 98 Room Air 21 05/02/19 16:00 98.7 77 20 148/88 (108) 100 05/02/19 15:41 74 05/02/19 14:37 142/81 05/02/19 11:45 98.8 79 18 142/81 (101) 98 05/02/19 11:35 76 Intake and Output 05/02/19 05/03/19 19:00 07:00 Intake Total 280 ml 510 ml Balance 280 ml 510 ml Intake Oral 280 ml 360 ml IV Total 150 ml # Voids 3 4 Laboratory Tests Test 05/02/19 20:55 05/03/19 05:09 Glucose Level 150 MG/DL (74-106) H 291 MG/DL (74-106) #H White Blood Count 5.7 K/UL (4.8-10.8) Red Blood Count 4.02 M/UL (4.20-5.40) L Hemoglobin 10.8 G/DL (12.0-16.0) L Hematocrit 33.1 % (37.0-47.0) L Mean Corpuscular Volume 82 FL (80-99) Mean Corpuscular Hemoglobin 26.8 PG (27.0-31.0) L Mean Corpuscular Hemoglobin Concent 32.5 G/DL (32.0-36.0) Red Cell Distribution Width 19.7 % (11.6-14.8) H Platelet Count 316 K/UL (150-450) Mean Platelet Volume 5.4 FL (6.5-10.1) L Neutrophils (%) (Auto) 71.4 % (45.0-75.0) Lymphocytes (%) (Auto) 19.1 % (20.0-45.0) L Monocytes (%) (Auto) 2.9 % (1.0-10.0) Eosinophils (%) (Auto) 5.9 % (0.0-3.0) H Basophils (%) (Auto) 0.7 % (0.0-2.0) Sodium Level 141 MMOL/L (136-145) Potassium Level 3.0 MMOL/L (3.5-5.1) L Chloride Level 104 MMOL/L (98-107) Carbon Dioxide Level 28 MMOL/L (21-32) Anion Gap 10 mmol/L (5-15) Blood Urea Nitrogen 4 mg/dL (7-18) L Creatinine 0.6 MG/DL (0.55-1.30) Estimat Glomerular Filtration Rate > 60 mL/min (>60) Calcium Level 7.9 MG/DL (8.5-10.1) L Magnesium Level 1.5 MG/DL (1.8-2.4) L Total Creatine Kinase 162 U/L (26-308) Troponin I 2.565 ng/mL (0.000-0.056) Pro-B-Type Natriuretic Peptide 71604 pg/mL (0-125) H Height (Feet): 5 Height (Inches): 0.00 Weight (Pounds): 125 General Appearance: WD/WN, no apparent distress, alert Cardiovascular: normal rate Respiratory/Chest: normal breath sounds, no respiratory distress Abdominal Exam: normal bowel sounds, non tender, soft Extremities: normal range of motion, non-tender Sanjeev Early NP May 03, 2019 10:16
--- NOTE | 2019-05-03 13:16 | General Progress Note ---
Assessment/Plan Problem List: (1) Vaginal bleeding (2) anemia (3) Hypothyroidism ICD Codes: E03.9 - Hypothyroidism, unspecified SNOMED: 68388211 (4) DM (diabetes mellitus) ICD Codes: E11.9 - DM (diabetes mellitus) SNOMED: 09130202 (5) Abdominal pain ICD Codes: R10.9 - Abdominal pain SNOMED: 71169471 (6) CHF (congestive heart failure) ICD Codes: I50.9 - Heart failure, unspecified SNOMED: 30377557 (7) Acute [place] ICD Codes: I21.9 - Acute myocardial infarction, unspecified SNOMED: 32043880 Status: stable, unchanged Assessment/Plan: cont Toan inhibitors Discussed with Dr Jorge IBARRA and Plavix Transfer to [facility] for cardiac cath Subjective Allergies: Coded Allergies: No Known Allergies (Verified , 09/02/07) Subjective feels better Objective Last 24 Hour Vital Signs Date Time Temp Pulse Resp B/P (MAP) Pulse Ox O2 Delivery O2 Flow Rate FiO2 05/03/19 08:59 131/81 05/03/19 08:58 76 131/81 05/03/19 08:45 98.1 78 18 131/81 (98) 95 05/03/19 08:25 Room Air 05/03/19 08:10 98.1 76 18 90/62 (71) 95 05/03/19 07:52 77 05/03/19 04:00 98.1 75 18 148/86 (106) 97 05/03/19 04:00 72 05/03/19 00:00 75 05/03/19 00:00 97.4 74 18 141/85 (103) 96 05/02/19 21:00 Room Air 05/02/19 20:00 74 05/02/19 20:00 97.2 76 18 154/93 (113) 100 05/02/19 19:43 98 Room Air 21 05/02/19 19:42 77 18 98 Room Air 21 05/02/19 16:00 98.7 77 20 148/88 (108) 100 05/02/19 15:41 74 05/02/19 14:37 142/81 Intake and Output 05/02/19 05/03/19 19:00 07:00 Intake Total 280 ml 510 ml Balance 280 ml 510 ml Intake Oral 280 ml 360 ml IV Total 150 ml # Voids 3 4 Laboratory Tests 05/02/19 20:55: Glucose Level 150H 05/03/19 05:09: Glucose Level 291#H, White Blood Count 5.7, Red Blood Count 4.02L, Hemoglobin 10.8L, Hematocrit 33.1L, Mean Corpuscular Volume 82, Mean Corpuscular Hemoglobin 26.8L, Mean Corpuscular Hemoglobin Concent 32.5, Red Cell Distribution Width 19.7H, Platelet Count 316, Mean Platelet Volume 5.4L, Neutrophils (%) (Auto) 71.4, Lymphocytes (%) (Auto) 19.1L, Monocytes (%) (Auto) 2.9, Eosinophils (%) (Auto) 5.9H, Basophils (%) (Auto) 0.7, Sodium Level 141, Potassium Level 3.0L, Chloride Level 104, Carbon Dioxide Level 28, Anion Gap 10 , Blood Urea Nitrogen 4L, Creatinine 0.6, Estimat Glomerular Filtration Rate > 60, Calcium Level 7.9L, Magnesium Level 1.5L, Total Creatine Kinase 162, Troponin I 2.565H, Pro-B-Type Natriuretic Peptide 30598H 05/03/19 11:50: Troponin I 2.138H Height (Feet): 5 Height (Inches): 0.00 Weight (Pounds): 125 Cardiovascular: normal rate Respiratory/Chest: lungs clear Avi Vasquez MD May 03, 2019 13:16
--- NOTE | 2019-05-03 13:42 | Diagnostic Imaging Report ---
APPROVED REPORT CPT Code: 24228 Present Symptoms Shortness of breath Comments: Pain BILATERAL: Imaging reveals a patent deep venous system bilaterally. There is no evidence of thrombus within the femoral, popliteal or tibial segments. The greater saphenous veins are also within normal limits. Doppler indicates normal spontaneous flow within these segments.
--- NOTE | 2019-05-03 15:20 | NUR ---
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 pt insurance is medical
[2019-05-03] MEDS ORDERED: D5NS 1000ml IV ONE (15:48)
--- NOTE | 2019-05-03 18:16 | Cardiology Report ---
APPROVED REPORT EKG Measurement Heart [id number] Normal sinus rhythm Left axis deviation Low voltage QRS Inferior infarct, age undetermined Cannot rule out Anterior infarct, age undetermined Abnormal ECG
[2019-05-03] MEDS: Dextrose 10% 1,000 ML IV SCH (18:30)
--- NOTE | 2019-05-03 19:02 | Cardiology Report ---
APPROVED REPORT EKG Measurement Heart [id number] [place] 152P58 [id number] Normal sinus rhythm Left axis deviation Low voltage QRS Nonspecific ST and T wave abnormality Abnormal ECG
--- NOTE | 2019-05-03 20:53 | Cardiology Progress Note ---
Assessment/Plan Assessment/Plan 1. Atypical chest pain, chronic in nature. 2. Diabetes mellitus. 3. History of anemia secondary to vaginal bleeding. 4. Hypothyroidism with medication noncompliance. 5. Left ventricular systolic dysfunction. 6. Congestive heart failure. 7. vag bleeding has some vag bleeding but hgb stable trop elelvated bu down trending will need cath may need gyne evla as well diuretic echo note td but swma in post er wall and distal inferiro septum , inferior wall was nto adequately visualized follow hgb dr casper has placed name for transfer to [facility] Subjective Cardiovascular: Denies: chest pain, lightheadedness, palpitations Respiratory: Denies: shortness of breath Gastrointestinal/Abdominal: Denies: abdominal pain Genitourinary: Denies: burning Objective Last 24 Hour Vital Signs Date Time Temp Pulse Resp B/P (MAP) Pulse Ox O2 Delivery O2 Flow Rate FiO2 05/03/19 20:20 97 Room Air 21 05/03/19 20:20 65 18 97 Room Air 21 05/03/19 16:20 97.3 70 16 134/79 (97) 98 05/03/19 15:11 70 05/03/19 12:00 98.2 72 18 110/66 (81) 98 05/03/19 11:55 66 05/03/19 08:59 131/81 05/03/19 08:58 76 131/81 05/03/19 08:45 98.1 78 18 131/81 (98) 95 05/03/19 08:25 Room Air 05/03/19 08:10 98.1 76 18 90/62 (71) 95 05/03/19 07:52 77 05/03/19 04:00 98.1 75 18 148/86 (106) 97 05/03/19 04:00 72 05/03/19 00:00 75 05/03/19 00:00 97.4 74 18 141/85 (103) 96 05/02/19 21:00 Room Air General Appearance: no apparent distress, alert Neck: supple Cardiovascular: normal rate Respiratory/Chest: lungs clear Abdomen: normal bowel sounds, non tender, soft Extremities: no swelling Intake and Output 05/02/19 05/03/19 18:59 06:59 Intake Total 400 ml 510 ml Balance 400 ml 510 ml Intake Oral 400 ml 360 ml IV Total 150 ml # Voids 3 4 Laboratory Tests Test 8/6/19 20:55 05/03/19 05:09 05/03/19 11:50 05/03/19 19:50 Glucose Level 150 MG/DL (74-106) H 291 MG/DL (74-106) #H White Blood Count 5.7 K/UL (4.8-10.8) Red Blood Count 4.02 M/UL (4.20-5.40) L Hemoglobin 10.8 G/DL (12.0-16.0) L Hematocrit 33.1 % (37.0-47.0) L Mean Corpuscular Volume 82 FL (80-99) Mean Corpuscular Hemoglobin 26.8 PG (27.0-31.0) L Mean Corpuscular Hemoglobin Concent 32.5 G/DL (32.0-36.0) Red Cell Distribution Width 19.7 % (11.6-14.8) H Platelet Count 316 K/UL (150-450) Mean Platelet Volume 5.4 FL (6.5-10.1) L Neutrophils (%) (Auto) 71.4 % (45.0-75.0) Lymphocytes (%) (Auto) 19.1 % (20.0-45.0) L Monocytes (%) (Auto) 2.9 % (1.0-10.0) Eosinophils (%) (Auto) 5.9 % (0.0-3.0) H Basophils (%) (Auto) 0.7 % (0.0-2.0) Sodium Level 141 MMOL/L (136-145) Potassium Level 3.0 MMOL/L (3.5-5.1) L Chloride Level 104 MMOL/L (98-107) Carbon Dioxide Level 28 MMOL/L (21-32) Anion Gap 10 mmol/L (5-15) Blood Urea Nitrogen 4 mg/dL (7-18) L Creatinine 0.6 MG/DL (0.55-1.30) Estimat Glomerular Filtration Rate > 60 mL/min (>60) Calcium Level 7.9 MG/DL (8.5-10.1) L Magnesium Level 1.5 MG/DL (1.8-2.4) L Total Creatine Kinase 162 U/L (26-308) Troponin I 2.565 ng/mL (0.000-0.056) 2.138 ng/mL (0.000-0.056) 2.038 ng/mL (0.000-0.056) Pro-B-Type Natriuretic Peptide 70763 pg/mL (0-125) H Adriano Patel MD May 03, 2019 20:53
[2019-05-03] MEDS ORDERED: Atorvastatin 80mg tab ORAL SCH (21:00)
[2019-05-04] VITALS: BP 141/83
[2019-05-04] MEDS: Metoclopramide 10mg/2ml Inj IVP SCH ×3 (00:17→12:00)
[2019-05-04 04:00] VITALS: BP 93/61
[2019-05-04] MEDS: NovoLOG Insulin Flexpen SUBQ SCH ×2 (06:30→11:53)
[2019-05-04 07:29] LABS: BASOPHILS % (AUTO) 1.2 % (0.0-2.0); EOSINOPHILS % (AUTO) 8.7 % (0.0-3.0); HEMATOCRIT 32.1 % (37.0-47.0); HEMOGLOBIN 10.6 G/DL (12.0-16.0); LYMPHOCYTES % (AUTO) 20.9 % (20.0-45.0); MEAN CORPUSCULAR VOLUME 82 FL (80-99); MONOCYTES % (AUTO) 7.4 % (1.0-10.0); NEUTROPHILS % (AUTO) 61.7 % (45.0-75.0); PLATELET COUNT 344 K/UL (150-450); RED BLOOD COUNT 3.91 M/UL (4.20-5.40); RED CELL DISTRIBUTION WIDTH 20.3 % (11.6-14.8); WHITE BLOOD COUNT 6.4 K/UL (4.8-10.8)
--- NOTE | 2019-05-04 07:29 | NUR ---
NURSE NOTES: Called Dr.Alfred Christina MD, regarding patient's low blood sugar. While I did EKG on the patient around 0545 I noticed patient seemed confused and checked her blood sugar and it was 40. I gave her 15 grams of sugar and Dextrose 50% 50 mL IV. Checked patient's blood sugar in 15 min nand it was 242, patient was AOx4. No new orders given.
--- NOTE | 2019-05-04 07:30 | NUR ---
NURSE NOTES: Report given to MARLYS Moser, patient in stable condition, plan of care endorsed
[2019-05-04 07:57] LABS: ANION GAP 7 mmol/L (5-15); BLOOD UREA NITROGEN 6 mg/dL (7-18); CALCIUM 8.2 MG/DL (8.5-10.1); CARBON DIOXIDE 27 MMOL/L (21-32); CHLORIDE 106 MMOL/L (98-107); CREATININE 0.7 MG/DL (0.55-1.30); POTASSIUM 3.3 MMOL/L (3.5-5.1); SODIUM 140 MMOL/L (136-145)
[2019-05-04 08:00] VITALS: BP 128/73
--- NOTE | 2019-05-04 08:00 | NUR ---
NURSE NOTES: Report received from MARLYS Spaulding. Pt shows no signs of distress, A+Ox4, denies pain/SOB. Respirations are even and unlabored on room air. IV site is patent and intact. Bed is at lowest position, brakes engaged, siderails x2, bed alarm on, and call light within reach. Pt is in stable condition at this time; will continue to monitor.
--- NOTE | 2019-05-04 08:04 | NUR ---
NURSE NOTES: Morning lab shows blood glucose of 23. MARLYS Spaulding treated the hypoglycemia around 5:45. Recent reported blood glucose was 241. Will check glucose again at 11:30.
[2019-05-04] MEDS: Aspirin Baby 81mg ORAL SCH (09:12)
[2019-05-04] MEDS: Metoprolol Tartrate 12.5mg TAB ORAL SCH (09:12)
[2019-05-04] MEDS: Furosemide 40mg tab ORAL SCH (09:13)
[2019-05-04 12:00] VITALS: BP 121/77
[2019-05-04] MEDS ORDERED: metFORMIN 500mg tab ORAL SCH (12:00)
--- NOTE | 2019-05-04 12:11 | Pulmonology Progress Note ---
Assessment/Plan Assessment/Plan Pulmonary Progress Note HPI Patient is a 44-year-old woman with previous history of Hypertension, Diabetes and Seizures, admitted with vaginal bleeding and abdominal pain x8 days. Complains of weakness/dizziness, had a recent fall in the shower, was admitted here recently for similar complaint and needed a blood transfusion. Denies being . No other aggravating relieving factors. Denies any other associated symptoms. Less SOB today, remain on oxygen. Stable H+H, being worked up for CHF by Cardiology CXR: s/o Pulmonary Congestion, VQ normal scan, LE dupplex negative Allergies: No Known Allergies Past Medical History: DM, HTN, Seizures Past Surgical History: none Pertinent Family History: none Social History: Denies: smoking, alcohol use, drug use Fell in the shower and hit her head one day prior to admission All Other Systems: negative except mentioned in HPI Physical Exam Vital Signs Noted General Appearance: no apparent distress, alert, GCS 15, non-toxic Head: normocephalic, atraumatic Eyes: bilateral eye normal inspection, bilateral eye PERRL ENT: hearing grossly normal, normal pharynx, no angioedema, normal voice Neck: full range of motion, supple/symm/no masses, No LN Respiratory: chest non-tender, lungs clear, normal breath sounds, speaking full sentences Cardiovascular: regular rate, rhythm, no edema, HS1, HS2, RRR Gastrointestinal: normal bowel sounds, soft, non-distended, no guarding, no rebound, tenderness Rectal: deferred Genitourinary: normal inspection, no CVA tenderness Musculoskeletal: back normal, gait/station normal, normal range of motion, non- tender Neurologic: alert, oriented x3, responsive, motor strength/tone normal, sensory intact, speech normal Impression: Dysfunctional uterine bleeding Sp previous blood transfusion Congestive Heart Failure V/Q and LE dupplex negative Anemia Hypoxia on ABG Diabetes Hypertension Seizures Plan Incentive spirometer Diurese PRN PRN HHN O2 PRN PPX Monitor Labs Labs noted EKG: Rate: normal Rhythm: NSR ST Segments: no acute changes CXR: s/o Pulmonary Congestion, VQ normal scan LE dupplex negative for DVT Subjective ROS Limited/Unobtainable: No Allergies: Coded Allergies: No Known Allergies (Verified , 09/02/07) Objective Last 24 Hour Vital Signs Date Time Temp Pulse Resp B/P (MAP) Pulse Ox O2 Delivery O2 Flow Rate FiO2 05/04/19 09:13 128/73 05/04/19 09:12 67 128/73 05/04/19 09:00 Room Air 05/04/19 08:00 98.2 67 20 128/73 (91) 100 05/04/19 08:00 71 05/04/19 04:00 62 05/04/19 04:00 97.9 65 16 93/61 (72) 100 05/04/19 00:00 97.7 70 16 141/83 (102) 98 05/04/19 00:00 70 05/03/19 22:16 70 134/88 05/03/19 21:00 Room Air 05/03/19 20:20 97 Room Air 21 05/03/19 20:20 65 18 97 Room Air 21 05/03/19 20:00 98.1 70 16 134/88 (103) 97 05/03/19 20:00 65 05/03/19 16:20 97.3 70 16 134/79 (97) 98 05/03/19 15:11 70 Intake and Output 05/03/19 05/04/19 19:00 07:00 Intake Total 140 ml Balance 140 ml Intake Oral 140 ml # Voids 3 4 Laboratory Tests 05/03/19 19:50: Troponin I 2.038H 05/04/19 05:46: Troponin I 1.713H, White Blood Count 6.4, Red Blood Count 3.91L, Hemoglobin 10.6L, Hematocrit 32.1L, Mean Corpuscular Volume 82, Mean Corpuscular Hemoglobin 27.1, Mean Corpuscular Hemoglobin Concent 33.1, Red Cell Distribution Width 20.3H, Platelet Count 344, Mean Platelet Volume 4.9L, Neutrophils (%) (Auto) 61.7, Lymphocytes (%) (Auto) 20.9, Monocytes (%) (Auto) 7.4, Eosinophils (%) (Auto) 8.7H, Basophils (%) (Auto) 1.2, Sodium Level 140, Potassium Level 3.3L, Chloride Level 106, Carbon Dioxide Level 27, Anion Gap 7, Blood Urea Nitrogen 6L, Creatinine 0.7, Estimat Glomerular Filtration Rate > 60 , Glucose Level 23#*L, Calcium Level 8.2L, Magnesium Level 2.2 Current Medications Medications (Trade) Dose Ordered Sig/Alycia Route PRN Reason Start Time Stop Time Status Last Admin Dose Admin Acetaminophen (Tylenol) 650 mg Q4H PRN ORAL Mild Pain (Pain Scale 1-3) 04/29/19 22:45 05/29/19 22:44 04/30/19 10:12 Aspirin (ASA) 81 mg DAILY ORAL 05/03/19 07:30 06/02/19 07:29 05/04/19 09:12 Atorvastatin Calcium (Lipitor) 80 mg BEDTIME ORAL 05/03/19 21:00 06/02/19 20:59 05/03/19 22:16 Benazepril HCl (Lotensin) 40 mg DAILY ORAL 05/02/19 14:21 06/01/19 14:20 05/04/19 09:13 Dextrose (Dextrose 50%) 25 ml Q30M PRN IV Hypoglycemia 04/29/19 22:45 05/29/19 22:44 Dextrose (Dextrose 50%) 50 ml Q30M PRN IV Hypoglycemia 04/29/19 22:45 05/29/19 22:44 05/04/19 05:51 Ferrous Sulfate (Feosol) 325 mg TWICE A DAY ORAL 04/30/19 09:00 05/30/19 08:59 05/04/19 09:12 Furosemide (Lasix) 40 mg DAILY ORAL 05/02/19 14:21 06/01/19 14:20 05/04/19 09:13 Levothyroxine Sodium (Synthroid) 100 mcg DAILY@0630 ORAL 05/02/19 06:30 06/01/19 06:29 05/04/19 06:37 Magnesium Hydroxide (Mom) 30 ml HSPRN PRN ORAL Constipation 04/29/19 22:45 05/29/19 22:44 Metformin HCl (Glucophage) 500 mg BID ORAL 05/04/19 12:00 06/03/19 11:59 05/04/19 12:03 Metoclopramide HCl (Reglan) 10 mg Q6HR IVP 05/01/19 12:00 05/30/19 20:29 05/04/19 12:00 Metoprolol Tartrate (Lopressor) 12.5 mg Q12HR ORAL 05/03/19 07:30 06/02/19 07:29 05/04/19 09:12 Morphine Sulfate (Morphine Sulfate) 2 mg Q2H PRN IVP For Pain 04/30/19 00:15 05/07/19 00:14 Morphine Sulfate (Morphine Sulfate) 4 mg Q2H PRN IVP For Pain 04/30/19 00:15 05/07/19 00:14 05/01/19 06:13 Ondansetron HCl (Zofran) 4 mg Q4HR PRN IVP Nausea & Vomiting 04/30/19 03:30 05/30/19 03:29 05/01/19 06:13 Prochlorperazine (Compazine) 25 mg Q12H PRN RECTAL Nausea & Vomiting 04/30/19 08:00 05/30/19 07:59 Zolpidem Tartrate (Ambien) 5 mg DAILYPRN PRN ORAL Insomnia 04/29/19 22:45 05/06/19 22:44 Wade Bean MD May 04, 2019 12:11
[2019-05-04] MEDS ORDERED: LOPRESSOR25 M1 ORAL (13:52)
[2019-05-04] MEDS ORDERED: GLUCOPHAGE500 MG ORAL (13:52)
[2019-05-04] MEDS ORDERED: BENAZEPRIL HCL40 MG ORAL (13:52)
[2019-05-04] MEDS ORDERED: FUROSEMIDE40 MG ORAL (13:52)
[2019-05-04] MEDS ORDERED: ASPIRIN81 MG ORAL (13:52)
--- NOTE | 2019-05-04 13:55 | General Progress Note ---
Assessment/Plan Problem List: (1) Vaginal bleeding (2) anemia (3) Hypothyroidism ICD Codes: E03.9 - Hypothyroidism, unspecified SNOMED: 66536874 (4) DM (diabetes mellitus) ICD Codes: E11.9 - DM (diabetes mellitus) SNOMED: 19983159 (5) Abdominal pain ICD Codes: R10.9 - Abdominal pain SNOMED: 59409292 (6) CHF (congestive heart failure) ICD Codes: I50.9 - Heart failure, unspecified SNOMED: 96782870 (7) Acute [place] ICD Codes: I21.9 - Acute myocardial infarction, unspecified SNOMED: 09208923 Status: stable, unchanged [facility] reche[facility] BS if ok Dc home Pt was told she has to go to [facility] for NM, CHF and vaginal bleed optician manager was used Subjective Allergies: Coded Allergies: No Known Allergies (Verified , 09/02/07) Subjective feels ok BS dropped today went up after D50 given Objective Last 24 Hour Vital Signs Date Time Temp Pulse Resp B/P (MAP) Pulse Ox O2 Delivery O2 Flow Rate FiO2 05/04/19 12:00 97.0 69 21 121/77 (92) 96 05/04/19 12:00 82 05/04/19 09:13 128/73 05/04/19 09:12 67 128/73 05/04/19 09:00 Room Air 05/04/19 08:45 98 Room Air 21 05/04/19 08:45 78 20 98 Room Air 21 05/04/19 08:00 98.2 67 20 128/73 (91) 100 05/04/19 08:00 71 05/04/19 04:00 62 05/04/19 04:00 97.9 65 16 93/61 (72) 100 05/04/19 00:00 97.7 70 16 141/83 (102) 98 05/04/19 00:00 70 05/03/19 22:16 70 134/88 05/03/19 21:00 Room Air 05/03/19 20:20 97 Room Air 21 05/03/19 20:20 65 18 97 Room Air 21 05/03/19 20:00 98.1 70 16 134/88 (103) 97 05/03/19 20:00 65 05/03/19 16:20 97.3 70 16 134/79 (97) 98 05/03/19 15:11 70 Intake and Output 05/03/19 05/04/19 19:00 07:00 Intake Total 140 ml Balance 140 ml Intake Oral 140 ml # Voids 3 4 Laboratory Tests 05/03/19 19:50: Troponin I 2.038H 05/04/19 05:46: Troponin I 1.713H, White Blood Count 6.4, Red Blood Count 3.91L, Hemoglobin 10.6L, Hematocrit 32.1L, Mean Corpuscular Volume 82, Mean Corpuscular Hemoglobin 27.1, Mean Corpuscular Hemoglobin Concent 33.1, Red Cell Distribution Width 20.3H, Platelet Count 344, Mean Platelet Volume 4.9L, Neutrophils (%) (Auto) 61.7, Lymphocytes (%) (Auto) 20.9, Monocytes (%) (Auto) 7.4, Eosinophils (%) (Auto) 8.7H, Basophils (%) (Auto) 1.2, Sodium Level 140, Potassium Level 3.3L, Chloride Level 106, Carbon Dioxide Level 27, Anion Gap 7, Blood Urea Nitrogen 6L, Creatinine 0.7, Estimat Glomerular Filtration Rate > 60 , Glucose Level 23#*L, Calcium Level 8.2L, Magnesium Level 2.2 Height (Feet): 5 Height (Inches): 0.00 Weight (Pounds): 125 Avi Vasquez MD May 04, 2019 13:55
--- NOTE | 2019-05-04 14:30 | NUR ---
NURSE NOTES: Blood glucose 248. Dr. Vasquez aware. Discharge order put in.
--- NOTE | 2019-05-04 15:15 | Progress Note ---
NOTE: POOR AUDIO SUBJECTIVE: outpatient clinic. The patient continues . She is repeat vaginal bleeding clips. This could result in with post menopausal bleeding. She has type 2 diabetes mellitus blood sugar is . Downgoing to plantars . OBJECTIVE: VITAL SIGNS: . deferred. ASSESSMENT AND PLAN: D5 NS 150 BMP and hemoglobin A1c in the a.m. Antoine Almazan M.D. DR: ESTELLE JOB#: [id number] CC:
--- NOTE | 2019-05-04 16:14 | NUR ---
NURSE NOTES: Discharge packet printed and discussed with patient. MARLYS Perkins translated for patient. All patient's questions answered. Belongings list signed. 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 IV, wrist band, and cardiac rehab nurse removed. VSS. Pt in stable condition. Pt discharged safely from floor via wheelchair to private vehicle with sister and .
--- NOTE | 2019-05-05 04:15 | Geriatric Medicine Prog Note ---
DATE: 05/04/2019 NOTE: POOR AUDIO SUBJECTIVE: The patient comfortably is doing well on metformin therapy hyperglycemia. . OBJECTIVE: Vital Signs: Stable. . LABORATORY DATA: Glucose 244. ASSESSMENT: is in good control. She will be discharged on metformin 00:40 mg p.o. b.i.d. She in the clinic. Antoine Almazan M.D. DR: EDWIGE JOB#: [id number] CC:
--- NOTE | 2019-05-05 12:45 | Discharge Summary ---
Discharge Summary Discharge Summary _ DATE OF ADMISSION: 04/25/2019 DATE OF DISCHARGE: 05/04/2019 DISCHARGED BY: Dr. Vasquez REASON FOR ADMISSION: 44 years old female presented to emergency department with complaint of vaginal bleeding and abdominal pain for 8 days. Patient reported feeling weak. Patient admitted in March for similar presentation and had full work-up, including RAT CULTURIST [facility] consult. Patient received blood transfusion. Ultrasound revealed thickened endometrium , no evidence of fibroids. Patient was recommended to follow-up with [facility] as outpatient. Patient had not yet seen by [facility] , since her discharge. Pain reported to be nonradiating, cramping, 7 out of 10, on a scale 1-10. Laboratory work-up revealed low blood pressure 90/59. Hemoglobin 5.4, hematocrit 17.2. Platelet count 298. No leukocytosis. INR stable. Urinalysis revealed gross hematuria, +2 pyuria, few bacteria. Stable electrolytes and renal parameters. Glucose 140. Stable LFT. EKG revealed normal sinus rhythm, no acute ischemic changes. Patient was placed in Trendelenburg position with IV fluid boluses. Patient remained hypotensive. Patient typed, crossmatched and started on blood transfusion in emergency department. Blood pressure improved. Patient subsequently admitted to telemetry floor for dysfunctional uterine bleeding hypotension,, and anemia. CONSULTANTS: doctor of audiology Dr. Patel pulmonary Dr. Bean GI specialist Dr. Correia press clipper Dr. Almazan [facility] COURSE: Patient admitted to telemetry floor. Patient apparently fell in the shower and hit her head one day prior to admission CT of the head revealed no evidence of acute intracranial process. Mild generalized atrophy and mild small vessel disease. ABG revealed hypoxia on room air. Supplemental oxygen provided as needed to keep pulse oximetry above 92%. Pulmonary toilet with bronchodilator was on Shilpi standby as needed. Use of incentive spirometer was encouraged. Venous duplex bilateral lower extremity reveal no evidence of acute DVT. VQ scan was essentially negative. Pulmonary emboli was doubtful. Follow-up chest x-ray showed congestive heart failure. Hemodynamic status was closely monitored. Echocardiogram demonstrated global left ventricular hypokinesis with reduced left ventricular ejection fraction 40 to 45%. No evidence of left ventricular hypertrophy. Moderately elevated left atrial pressure grade 2. Right ventricular systolic pressure of 31. Patient complained of chest pain. Serial troponin troponin were elevated, but trended down. Case Specialist followed. According to doctor of audiology, patient had atypical chest pain, chronic in nature. Case Specialist recommended transfer to another facility for cardiac catheterization. Antiplatelet therapy and statin continued. Guideline directed medical management for congestive heart failure provided with beta-alissa, SUYAPA inhibitor and Lasix. Volumes and cardiorenal parameters were closely monitored. TSH noted to be elevated with low free T4. Synthroid dose was uptitrated. Hemoglobin A1c at goal 6.8. Per press clipper her blood sugar appears to be under control. Current management of diabetes continued. Patient was on lisinopril and statin. Patient initially started on empiric antibiotic for possible UTI. Urine culture revealed mixed gram-positive organism. Antibiotic stopped. Patient was transfused with 2 units of packed red blood cells while in the hospital. Hemoglobin from initial 5.4 up to 10.6 and hematocrit from 17.2 up to 32.1 upon discharge. Patient will need outpatient [facility] evaluation. GI specialist followed. Hemoglobin hematocrit were closely monitored. KUB was negative. Anemia was likely due to vaginal bleeding and resolved with 2 units of packed red blood cells transfusion. Antiemetic provided as needed. Pain management was addressed as needed. Patient started on diet and was able to tolerate diet. Unfortunately [facility] declined to accept this patient for cardiac catheterization. Patient stabilized and remained hemodynamically stable. Stable electrolytes renal parameters, electrolytes, hemoglobin and hematocrit. No further vaginal bleeding. No chest or abdominal pain. Patient was discharged home with outpatient follow-up with [facility] clinic in hospital for cardiac catheterization and [facility] evaluation. Patient was advised to follow-up with her outpatient appointment. FINAL DIAGNOSES: Acute on chronic congestive heart failure with systolic dysfunction Atypical chest pain Elevated troponin Dysfunctional uterine bleeding Anemia, secondary to vaginal bleeding Hypotension Hypothyroidism with elevated TSH Diabetes mellitus DISCHARGE MEDICATIONS: See Medication Reconciliation list. DISCHARGE INSTRUCTIONS: Patient was discharged home Follow up with [facility] clinic and hospital for further management. I have been assigned to dictate discharge summary for this account. I was not involved in the patient's management. Carmen Card NP May 05, 2019 12:45
== END 2019-05-04 16:00 | disposition home or self-care (01) | DRG 532 ==
LOC: EMR 21:30 → 2E 21:40 → EDBEDREQ 22:17
PROC: 30233N1 Transfusion of Nonautologous Red Blood Cells into Peripheral Vein, Percutaneous Approach (ICD-10-PCS; principal; 2019-04-29)
DX: N93.8 Other specified abnormal uterine and vaginal bleeding (principal); E11.9 Type 2 diabetes mellitus without complications; G40.909 Epilepsy, unspecified, not intractable, without status epilepticus; D50.9 Iron deficiency anemia, unspecified; D25.9 Leiomyoma of uterus, unspecified; I50.23 Acute on chronic systolic (congestive) heart failure; I11.0 Hypertensive heart disease with heart failure; R09.02 Hypoxemia; E03.9 Hypothyroidism, unspecified; Z91.81 History of falling; I34.0 Nonrheumatic mitral (valve) insufficiency; R07.89 Other chest pain
CPT/HCPCS: 36415; 36600; 70450; 71045; 74018; 78580; 80048; 80053; 80061; 81001; 81025; 82150; 82550; 82803; 82947; 82962; 83036; 83690; 83735; 83880; 84439; 84443; 84480; 84484; 85025; 85610; 85730; 86850; 86900; 86901; 86920; 87081; 87086; 93005; 93306; 93970; 94664; 96361; 96374; 99291; J1815; J2405; J2765; J8499

== ENCOUNTER 2019-11-29 13:14 | Inpatient (IN) | payer MEDICAID ==
[~2019-11-29] VITALS: Ht 154.9 cm; Wt 54.4 kg
[~2019-11-29 13:14] MED LIST changes: +ASPIRIN81 MG ORAL; +BENAZEPRIL HCL40 MG ORAL; +FUROSEMIDE40 MG ORAL; +GLUCOPHAGE500 MG ORAL; +LOPRESSOR25 M1 ORAL
[2019-11-29 13:15] VITALS: BP 121/40
--- NOTE | 2019-11-29 14:18 | Diagnostic Imaging Report ---
Indication: Headache Technique: Contiguous 5 mm thick transaxial imaging of the head obtained in a Siemens Sensation [address] scanner. Soft tissue and bone windows generated. Automatic Exposure Control was utilized. Total Dose length Product (DLP): 1018.8mGycm CT Dose Index Volume (CTDIvol): 53.4 mGy Comparison: 04/30/2019 Findings: There is mild prominence of the ventricles, basal cisterns, and cerebral sulci consistent with atrophy. Mild, nonspecific, white matter hypoattenuation is noted throughout the brain consistent with chronic small vessel disease. There is no midline shift, edema, acute hemorrhage, mass effect, or abnormal extra-axial fluid collections. Bones are unremarkable. Impression: No acute intracranial bleed, mass effect or edema. Mild atrophy of the brain. Nonspecific white matter hypoattenuation probably due to chronic small vessel disease. The CT scanner at [facility] is accredited by the [employer] and the scans are performed using dose optimization techniques as appropriate to a performed exam including Automatic Exposure control.
[2019-11-29 14:46] LABS: HEMATOCRIT 18.7 % (37.0-47.0); MEAN CORPUSCULAR VOLUME 66 FL (80-99); PLATELET COUNT 399 K/UL (150-450); RED BLOOD COUNT 2.84 M/UL (4.20-5.40); RED CELL DISTRIBUTION WIDTH 18.9 % (11.6-14.8); WHITE BLOOD COUNT 7.2 K/UL (4.8-10.8)
[2019-11-29 14:53] LABS: ANION GAP 12 mmol/L (5-15); BLOOD UREA NITROGEN 14 mg/dL (7-18); CALCIUM 8.2 MG/DL (8.5-10.1); CARBON DIOXIDE 23 MMOL/L (21-32); CHLORIDE 106 MMOL/L (98-107); CREATININE 0.6 MG/DL (0.55-1.30); SODIUM 141 MMOL/L (136-145)
[2019-11-29 15:05] LABS: INR 0.9 (0.9-1.1)
[2019-11-29 15:06] LABS: ALANINE AMINOTRANSFERASE 32 U/L (12-78); ALBUMIN 2.9 G/DL (3.4-5.0); ALBUMIN/GLOBULIN RATIO 0.6 (1.0-2.7); ALKALINE PHOSPHATASE 108 U/L (46-116); ASPARTATE AMINO TRANSFERASE 44 U/L (15-37); BILIRUBIN,TOTAL 0.1 MG/DL (0.2-1.0); HEMOGLOBIN 5.4 G/DL (12.0-16.0)
[2019-11-29 15:16] LABS: APPEARANCE,URINE TURBID; BILIRUBIN, URINE NEGATIVE (NEGATIVE); GLUCOSE, URINE (UA) NEGATIVE (NEGATIVE); KETONES,URINE 1+ (NEGATIVE); LEUKOCYTE ESTERASE ,URINE 1+ (NEGATIVE); NITRITE,URINE NEGATIVE (NEGATIVE); PH,URINE 6.5 (4.5-8.0); PROTEIN,URINE 4+ (NEGATIVE); UROBILINOGEN,URINE NORMAL MG/DL (0.0-1.0)
[2019-11-29 15:20] LABS: COLOR,URINE RED
[2019-11-29] MEDS ORDERED: cefTRIAXone 1 GM in NS 55 ML IVPB ONE (15:45)
[2019-11-29 16:00] VITALS: BP 121/58
--- NOTE | 2019-11-29 16:41 | Diagnostic Imaging Report ---
Indication: Dyspnea Comparison: 05/01/2019 A single view chest radiograph was obtained. Findings: Cardiomediastinal appearance is within normal limits for age and although slightly prominent this may be accounted for by low lung volumes. The lungs are clear. Pulmonary vascularity is appropriate. The diaphragmatic contour is smooth and costophrenic angles are sharp. No pleural effusions are identified. The bones are unremarkable. Impression: No acute findings
--- NOTE | 2019-11-29 18:22 | Emergency Room Report ---
History of Present Illness General Chief Complaint: General Complaint Source: Patient (Pham Kelly) Present Illness HPI 44-year-old female with history of chronic anemia and dysfunctional uterine bleeding as well as diabetes and hypertension brought in by paramedics due to syncope, head injury and loss of consciousness. Patient appears to be pale, and lethargic. No unilateral or generalized weakness noted. Neurovascularly intact. No signs of trauma noted in the head. The fall was not witnessed. Patient reports that she has been continuously bleeding vaginally for the past several months and has already been at [facility] been hospitalized for anemia secondary to dysfunctional uterine bleeding many times. Patient has not yet been sent to cupboard builder or MEDICATION AID. Compliant with taking blood pressure medication as well as diabetes medicine. Complains of shortness of breath. Denies chest pain chest pain radiation. Denies abdominal pain, nausea vomiting at this time. Has not taken medication for symptom relief. Denies at this time. Denies any drug use, tobacco smoke, alcohol intake. Complains of dizziness however denies blurry vision. Denies fever and chills, URI symptoms (Pham Kelly) Allergies: Coded Allergies: No Known Allergies (Verified , 09/02/07) Patient History Past Medical History: see triage record Past Surgical History: none Pertinent Family History: none Now: No Immunizations: UTD Reviewed Nursing Documentation: PMH: Agreed; PSxH: Agreed (Pham Kelly) Nursing Documentation-PM Past Medical History: No History, Except For Hx Cardiac Problems: No - Hypothyroidism, Anemia, Uterine fibroid Hx Hypertension: Yes Hx Pacemaker: No Hx Asthma: No Hx COPD: No Hx Diabetes: Yes Hx Cancer: No Hx Gastrointestinal Problems: No Hx Dialysis: No Hx Neurological Problems: No Hx Cerebrovascular Accident: No Hx Transient Ischemic Attacks: No Hx Dementia: No Hx Alzheimer's Disease: No Hx Parkinson's Disease: No Hx Meningitis: No Hx Encephalitis: No Hx Seizures: Yes Hx Epilepsy: No Hx Multiple Sclerosis: No Hx Cerebral Palsy: No Hx Amyotrophic Lat Sclerosis: No Hx Guillian-Virgil Syndrome: No Hx Paralysis: No Hx Peripheral Neuropathy: No Hx Spinal Cord Injury: No Hx Head Trauma: Yes - Fell in the shower and hit her head one day prior to admission Hx Traumatic Brain Injury: No Hx Memory Loss: No Hx Concentration Difficulty: Yes Hx Speech Problem: No Hx Tremors: No Hx Vertigo: No Hx Dizziness: Yes Hx Syncope: No Hx Headaches: Yes Hx Aphasia: No Hx Dysphasia: No Hx Numbness: No Hx Weakness: No Hx Fatigue: Yes Hx Neurologic Surgery: No Hx Brain Shunt: No (Pham Kelly) Review of Systems All Other Systems: negative except mentioned in HPI (Pham Kelly) Physical Exam Vital Signs Date Time Temp Pulse Resp B/P (MAP) Pulse Ox O2 Delivery O2 Flow Rate FiO2 11/29/19 13:09 98.1 72 16 121/40 (67) 98 Room Air Sp02 EP Interpretation: reviewed, normal General Appearance: moderate distress Head: normocephalic, atraumatic Eyes: bilateral eye normal inspection, bilateral eye PERRL ENT: hearing grossly normal, normal pharynx, no angioedema, normal voice Neck: full range of motion, supple, thyroid normal, no meningismus, supple/symm /no masses Respiratory: chest non-tender, lungs clear, normal breath sounds, no rhonchi, no wheezing, speaking full sentences Cardiovascular #1: regular rate, rhythm, no edema, no murmur, normal capillary refill Gastrointestinal: normal bowel sounds, non tender, soft, non-distended, no guarding, no rebound Rectal: deferred Genitourinary: no CVA tenderness Musculoskeletal: back normal, no calf tenderness Neurologic: alert, motor strength/tone normal, oriented x3, sensory intact, responsive, speech normal Psychiatric: judgement/insight normal, memory normal, mood/affect normal, no suicidal/homicidal ideation Skin: no rash, pallor Lymphatic: no adenopathy (Pham Kelly) Medical Decision Making PA Attestation All my diagnosis and treatment plans were reviewed ad discussed with my supervising physician Dr. Willard (Pham Kelly) Diagnostic Impression: Primary Impression: Syncope Additional Impression: Symptomatic anemia ER Course 44-year-old female with history of chronic anemia and dysfunctional uterine bleeding as well as diabetes and hypertension brought in by paramedics due to syncope, head injury and loss of consciousness. Patient appears to be pale, and lethargic. No unilateral or generalized weakness noted. Neurovascularly intact. No signs of trauma noted in the head. The fall was not witnessed. Patient reports that she has been continuously bleeding vaginally for the past several months and has already been at [facility] been hospitalized for anemia secondary to dysfunctional uterine bleeding many times. Patient has not yet been sent to cupboard builder or MEDICATION AID. Compliant with taking blood pressure medication as well as diabetes medicine. Complains of shortness of breath. Denies chest pain chest pain radiation. Denies abdominal pain, nausea vomiting at this time. Has not taken medication for symptom relief. Denies at this time. Denies any drug use, tobacco smoke, alcohol intake. Complains of dizziness however denies blurry vision. Denies fever and chills, URI symptoms Ddx considered but are not limited to: Dizziness due to alcohol intoxication, dizziness unspecified, dizziness due to head trauma, dizziness secondary to cardiac reasons, syncope secondary to anemia, NC, CVA, head contusion, cerebral hematoma Vital signs: are WNL, pt. is afebrile H&PE are most consistent with: Syncope secondary to anemia ORDERS: CBC, CMP, UA, type and screen, PT and PTT, head CT scan no contrast, chest x-ray, troponin, EKG, BMP, UA, urine , thoracic spine ER intervention: NS bolus, 2 units of packed red blood cells, Rocephin for UTI Patient was admitted with diagnosis of syncope secondary to chronic anemia to Dr. Smith under supervision of .: Montse, and Sathish pt stable at time of admission (Pham Kelly) ER Course PAPatient seen and evaluated by ISIDRA Montgomery. I discussed work-up and evaluation with her. I agree with her assessment and plan. I agree with plan to admit and treatment plan. I endorsed case to accepting physician and to OB/ DEVELOPMENT EXPERT consult. (Sal Bower MD) EKG Diagnostic Results Rate: normal Rhythm: NSR ST Segments: no acute changes Other Impression No acute ST changes (Pham Kelly) Chest X-Ray Diagnostic Results Chest X-Ray Diagnostic Results : Chest X-Ray Ordered: Yes # of Views/Limited/Complete: 1 View Indication: Shortness of Breath EP Interpretation: Yes PA Xray: Interpretation reviewed, by supervising MD, and agrees with findings. Interpretation: no consolidation, no effusion, no pneumothorax Impression: No acute disease Electronically Signed by: Pham Mercedes PA-C (Pham Kelly) CT/MRI/US Diagnostic Results CT/MRI/US Diagnostic Results : Imaging Test Ordered: Head CT no contrast Impression No intracranial bleed, no skull fracture (Pham Kelly) Last Vital Signs Date Time Temp Pulse Resp B/P (MAP) Pulse Ox O2 Delivery O2 Flow Rate FiO2 11/29/19 13:09 98.1 72 16 121/40 (67) 98 Room Air Status: improved (Pham Kelly) Disposition: ADMITTED INPATIENT Condition: Serious Referrals: NOT CHOSEN IPA/,REFERRING (PCP) Pham Kelly Nov 29, 2019 18:22 Sal Bower MD Nov 29, 2019 21:57
[2019-11-29 18:24] VITALS: BP 122/63
[2019-11-29] MEDS: Metoprolol Tartrate 12.5mg TAB ORAL SCH (21:00)
[2019-11-30] MEDS ORDERED: Levothyroxine 125mcg tab ORAL SCH (06:30)
[2019-11-30 07:37] LABS: BASOPHILS % (AUTO) 1.6 % (0.0-2.0); EOSINOPHILS % (AUTO) 1.5 % (0.0-3.0); HEMATOCRIT 30.4 % (37.0-47.0); HEMOGLOBIN 9.9 G/DL (12.0-16.0); LYMPHOCYTES % (AUTO) 19.1 % (20.0-45.0); MEAN CORPUSCULAR VOLUME 73 FL (80-99); MONOCYTES % (AUTO) 4.5 % (1.0-10.0); NEUTROPHILS % (AUTO) 73.4 % (45.0-75.0); PLATELET COUNT 328 K/UL (150-450); RED BLOOD COUNT 4.17 M/UL (4.20-5.40); RED CELL DISTRIBUTION WIDTH 19.3 % (11.6-14.8); WHITE BLOOD COUNT 4.4 K/UL (4.8-10.8)
[2019-11-30 07:59] LABS: ANION GAP 13 mmol/L (5-15); BLOOD UREA NITROGEN 9 mg/dL (7-18); CALCIUM 7.7 MG/DL (8.5-10.1); CARBON DIOXIDE 21 MMOL/L (21-32); CHLORIDE 107 MMOL/L (98-107); CREATININE 0.5 MG/DL (0.55-1.30); POTASSIUM 3.8 MMOL/L (3.5-5.1); SODIUM 141 MMOL/L (136-145)
[2019-11-30 08:00] VITALS: BP 150/80
[2019-11-30] MEDS ORDERED: Furosemide 40mg tab ORAL SCH (09:00)
[2019-11-30] MEDS: metFORMIN 500mg tab ORAL SCH ×2 (09:00→17:29)
[2019-11-30] MEDS ORDERED: Aspirin Baby 81mg ORAL SCH (09:00)
[2019-11-30] MEDS: Metoprolol Tartrate 12.5mg TAB ORAL SCH (10:21)
[2019-11-30 12:00] VITALS: BP 154/82
--- NOTE | 2019-11-30 16:28 | Diagnostic Imaging Report ---
Indication:Lower abdominal and pelvic pain Technique: Grayscale and duplex Doppler imaging of the pelvis performed utilizing a transabdominal and endovaginal scan. Comparison: 12/31/2017, 06/11/2018, 04/03/2019, 04/04/2019 Findings: Uterus is notable for hypoechogenic structures consistent with fibroids. These appear myometrial. On the right there is a 1.5 x 1.7 cm fibroid present. On the left there is a 1.4 x 1.7 cm fibroid present. In the fundal region there is a 2.5 cm fibroid. The endometrium thickness is about 8 mm. The endometrium is uniformly echogenic and normal in thickness. In the area of the endocervical canal there is increased vascularity in a region that measures about a centimeter. The hypervascular focus is poorly defined and could be a underlying endocervical polyp. This has been documented on prior occasions. It is difficult to tell whether this has changed compared to the prior studies. The uterus measures 9.6 x 3.4 x 5.6 cm. The ovaries show good dopplerable blood flow. Dominant left ovarian cyst measuring approximately 2.7 x 3.6 cm noted. The right ovary measures 2.3 x 1.6 x 2 cm. The left ovary measures 4.1 x 3.1 x 4.1 cm. There is mild degree of free fluid identified. IMPRESSION: Increased vascularity within the endocervical canal again noted. The focus is difficult to define but is suspicious for a small fibrovascular polyp. Uterine fibroids. Dominant left ovarian cyst likely physiologic. Findings discussed with Dr. Sea Pascal via telephone
--- NOTE | 2019-11-30 18:00 | History and Physical Report ---
DATE OF ADMISSION: 11/29/2019 CHIEF COMPLAINT AND REASON FOR HOSPITALIZATION: The patient has a history of dysfunctional uterine bleeding, long standing, presented with severe anemia and episode of apparent syncope and generalized weakness. She apparently bumped her head and a CT of brain was negative. In view of the anemia, the emergency room physician ordered transfusions. The patient states she is feeling better after transfusions when I arrived. She has apparently has chronic intermittent vaginal bleeding, but no bleeding this week. No abdominal pain. PAST SURGICAL HISTORY: section one time. ALLERGIES: None known. MEDICATIONS: She cannot give a good history, but she apparently takes a blood pressure pill, Lantus insulin 10 units daily, and a sliding scale. HABITS: She is a nondrinker and nonsmoker. No use of illicit drugs. SYSTEM REVIEW: HEAD, EYES, EARS, NOSE, AND THROAT: Vision and hearing is good. ENDOCRINE: History of diabetes, on insulin and no known thyroid disease. PULMONARY: No chronic cough, asthma, of TB. CARDIAC: No angina or [place]. No CHF. GASTROINTESTINAL: No GI bleeding or ulcers. GENITOURINARY: No dysuria or hematuria. COMPUTER SYSTEMS INTEGRATOR: She is 6, para 4, AB 2 with one section. NEUROLOGIC: No prior episodes of seizures or syncope. PHYSICAL EXAMINATION: GENERAL: The patient is alert lady, in no acute distress. VITAL SIGNS: Blood pressure 150/80 and pulse is 72. HEAD, EYES, EARS, NOSE, AND THROAT: Sclerae are nonicteric. Ocular motions intact in all directions. Oral mucosa moist. NECK: No adenopathy or thyroid enlargement. LUNGS: Clear. HEART: Regular rhythm. No murmur. ABDOMEN: Soft without organomegaly or masses. No tenderness. EXTREMITIES: No edema, cyanosis, or clubbing. COMPUTER SYSTEMS INTEGRATOR: that she needs to see a glass checker. IMPRESSION: 1. Anemia secondary to blood loss. 2. Dysfunctional uterine bleeding. 3. Syncope, likely secondary to anemia. PLAN: The patient has received transfusion. I ordered intravenous iron. She is not actively bleeding at this time and at this time, she can be discharged. See discharge note. Scott Smith M.D. DR: KATIE JOB#: [id number] CC:
[2019-11-30] MEDS ORDERED: NS 275ml ONE (18:48)
[2019-11-30] MEDS ORDERED: D5 1/2NS 1000ml IV ONE (18:48)
[2019-11-30] MEDS ORDERED: Tubing Blood Filter IV ONE (18:48)
[2019-11-30] MEDS ORDERED: Iron Sucrose 100 MG in NS 55 ML IV SCH (21:00)
--- NOTE | 2019-12-01 05:30 | Discharge Summary ---
DATE OF ADMISSION: 11/29/2019 DATE OF DISCHARGE: 11/30/2019 PERTINENT HISTORY: The patient presented with an episode of syncope and severe anemia due to the dysfunctional uterine bleeding, which is presenting. Her hemoglobin was 5.4, and she was transfused. It went up to 9.9. PHYSICAL EXAMINATION: As per dictated H and P. COURSE IN THE HOSPITAL: The patient improved after transfusion. Had no dizziness or adverse events and was discharged home in stable condition. FINAL DIAGNOSES: 1. Syncope due to anemia. 2. Anemia secondary to blood loss. 3. Dysfunctional uterine bleeding. 4. Diabetes. DISCHARGE DISPOSITION: Home on her [id number] medications and ferrous sulfate 325 mg t.i.d. Follow up with her PCP and private certified breastfeeding educator. Scott Smith M.D. DR: JONNY JOB#: [id number] CC:
== END 2019-11-30 18:49 | disposition home or self-care (01) | DRG 532 ==
LOC: EDBD 13:14 → EDBEDREQ 17:10 → EMR 18:00 → 2E 18:03 → EDBEDREQ 18:13
PROC: 30233N1 Transfusion of Nonautologous Red Blood Cells into Peripheral Vein, Percutaneous Approach (ICD-10-PCS; principal; 2019-11-29)
DX: N93.8 Other specified abnormal uterine and vaginal bleeding (principal); D50.0 Iron deficiency anemia secondary to blood loss (chronic); Z79.4 Long term (current) use of insulin; R55 Syncope and collapse; E11.9 Type 2 diabetes mellitus without complications
CPT/HCPCS: 36415; 70450; 71045; 76830; 76856; 80048; 80053; 80307; 81003; 81025; 82962; 83880; 84484; 85007; 85025; 85610; 85730; 86850; 86900; 86901; 86920; 93005; 96361; 96365; 99285; G0480; J7030

== ENCOUNTER 2020-03-26 17:27 | Inpatient (IN) | payer MEDICAID ==
[~2020-03-26] VITALS: Ht 149.9 cm; Wt 50.8 kg
--- NOTE | 2020-03-26 17:47 | NUR ---
ED Nurse Note: Pt ambulated to ed c/o mid back pain radiating to epigastric region and chest. pain states that pain has been persisting for 2 days with 10/10 pain. pt denies n/v/d
[2020-03-26 17:58] VITALS: BP 89/58
[2020-03-26] MEDS ORDERED: DiphenhydrAMINE 50mg/ml Inj IVP ONE (18:00)
[2020-03-26] MEDS ORDERED: Morphine Sulfate 2mg/ml Inj(IV/IM USE ONLY) IVP ONE (18:00)
[2020-03-26] MEDS ORDERED: Metoclopramide 10mg/2ml Inj IVP ONE (18:00)
--- NOTE | 2020-03-26 18:05 | Emergency Room Report ---
History of Present Illness General Chief Complaint: Back Pain-No Injury Source: Patient Present Illness HPI Patient presents with body pain that began yesterday while she was sitting in the chair. She feels it both in her chest and also her upper back. She claims she has had pain like this before but is not certain what the diagnosis is. She is an insulin-dependent diabetic and states she has been taking her insulin recently. She denies change in her bowel habits. She feels some nausea but denies any vomiting. There is no productive cough at this time or sore throat. She does have some dysuria and says that she has had urinary tract infections in the past. She has some dyspnea on exertion. Also sometimes when she stands up she feels dizzy. She denies syncope recently. She reports the pain 10/10 throughout her body but mainly in her back. She reports the pain is being achy and constant. There is some increase with movement. Patient is a insulin-dependent diabetic. She states she has been taking her insulin. No fevers, chills, palpitations, diarrhea, abdominal pain, rashes, depression, anxiety, visual changes, headache. The patient was last admitted November of this year for syncope. Discharge diagnoses: 1. Syncope due to anemia. 2. Anemia secondary to blood loss. 3. Dysfunctional uterine bleeding. 4. Diabetes. Allergies: Coded Allergies: No Known Allergies (Verified , 09/02/07) COVID-19 Screening Contact w/high risk pt: No Recent Travel to affected area: No Experienced COVID-19 symptoms?: No COVID-19 Testing performed FLIGHT COMMUNICATIONS OFFICER: No Patient History Past Medical History: see triage record, old chart reviewed Social History: Denies: smoking, alcohol use, drug use Social History Narrative with family Now: No Reviewed Nursing Documentation: PMH: Agreed; PSxH: Agreed Nursing Documentation-PMH Hx Cardiac Problems: No - Hypothyroidism, Anemia, Uterine fibroid Hx Hypertension: Yes Hx Pacemaker: No Hx Asthma: No Hx COPD: No Hx Diabetes: Yes Hx Cancer: No Hx Gastrointestinal Problems: No Hx Dialysis: No Hx Neurological Problems: No Hx Cerebrovascular Accident: No Hx Transient Ischemic Attacks: No Hx Dementia: No Hx Alzheimer's Disease: No Hx Parkinson's Disease: No Hx Meningitis: No Hx Encephalitis: No Hx Seizures: Yes Hx Epilepsy: No Hx Multiple Sclerosis: No Hx Cerebral Palsy: No Hx Amyotrophic Lat Sclerosis: No Hx Guillian-Toledo Syndrome: No Hx Paralysis: No Hx Peripheral Neuropathy: No Hx Spinal Cord Injury: No Hx Head Trauma: Yes - Fell in the shower and hit her head one day prior to admission Hx Traumatic Brain Injury: No Hx Memory Loss: No Hx Concentration Difficulty: Yes Hx Speech Problem: No Hx Tremors: No Hx Vertigo: No Hx Dizziness: Yes Hx Syncope: No Hx Headaches: Yes Hx Aphasia: No Hx Dysphasia: No Hx Numbness: No Hx Weakness: No Hx Fatigue: Yes Hx Neurologic Surgery: No Hx Brain Shunt: No Review of Systems All Other Systems: negative except mentioned in HPI Physical Exam Vital Signs Date Time Temp Pulse Resp B/P (MAP) Pulse Ox O2 Delivery O2 Flow Rate FiO2 03/26/20 17:41 98.2 81 20 89/58 (68) 100 Room Air Sp02 EP Interpretation: reviewed, normal General Appearance: GCS 15, non-toxic, mild distress, thin Head: normocephalic Eyes: bilateral eye PERRL, bilateral eye EOMI, bilateral eye conjunctivae pale ENT: moist mucus membranes Neck: supple Respiratory: lungs clear, normal breath sounds Cardiovascular #1: regular rate, rhythm Cardiovascular #2: 2+ radial (R) Gastrointestinal: normal inspection, normal bowel sounds, non tender, no mass, non-distended Genitourinary: no CVA tenderness Musculoskeletal: back normal - Although she reports tenderness, normal range of motion, no calf tenderness, gait/station normal Neurologic: alert, oriented x3, grossly normal Psychiatric: depressed affect Skin: no rash, warm/dry, pallor Procedures Critical Care Time Critical Care Time Total Critical Care Time: 30 min bedside evaluation and treatment excludes procedures (EKG). Reason for critical care: critical anemia, blood transfusion, diabetes, hypothyroidism Possible complications: hypotension, hypertension, SD, shock, arrhythmias, metabolic acidosis, end organ damage, respiratory failure. Interventions: blood transfusion, repeat evaluations, discussion with blood bank and nursing staff, informed consent for blood transfusion Course: Patient presents with back pain with history of diabetes. Lab called with critical hemoglobin. This was repeated. Discussed with blood bank need for transfusions. Informed consent obtained from patient. Transfusions begun. Pain treated with morphine. Patient tolerated transfusion with improvement. Due to history of hypothyroidism T3 and T4 ordered. Consultations: nursing staff, EMS, blood bank, lab, admitting physician Performed by: Dr. Rivas Tolerated well condition = serious Medical Decision Making Diagnostic Impression: Primary Impression: Anemia Qualified Codes: D50.0 - Iron deficiency anemia secondary to blood loss ( chronic) Additional Impressions: Dysfunctional uterine bleeding UTI (lower urinary tract infection) Hypothyroidism Qualified Codes: E03.9 - Hypothyroidism, unspecified ER Course Patient presents with total body pain and is an insulin-dependent diabetic. Differential includes DKA, hyperglycemia, electrolyte imbalance, GERD, acute myocardial infarction, gastritis, pancreatitis amongst others. Evaluation with EKG, chest x-ray and labs. Patient treated with IV hydration and also Reglan, Benadryl and Pepcid. An Accu-Chek will be obtained. EKG sinus rhythm rate 83 with left axis deviation and nonspecific ST-T wave changes. Accu-Chek elevated but not to the level of possible DKA. Called for critical h/h. Lab requested repeat. This was ordered. Repeat = same. Transfusions ordered 1919 informed consent discussed. Patient request treatment for pain. Morphine administered. Transfusion begun. Patient tolerated well. Urine results returned late. Suggestion of urinary tract infection. Antibiotics were not ordered in the emergency department. Review of prior labs also suggest hypothyroidism. Late order of TSH, T3 and T4. Laboratory Tests Test 03/26/20 18:05 03/26/20 21:29 03/26/20 21:32 White Blood Count 7.1 K/UL (4.8-10.8) 6.1 K/UL (4.8-10.8) Red Blood Count 2.38 M/UL (4.20-5.40) L 2.29 M/UL (4.20-5.40) L Hemoglobin 5.1 G/DL (12.0-16.0) *L 4.9 G/DL (12.0-16.0) *L Hematocrit 17.1 % (37.0-47.0) L 16.4 % (37.0-47.0) L Mean Corpuscular Volume 72 FL (80-99) L 72 FL (80-99) L Mean Corpuscular Hemoglobin 21.3 PG (27.0-31.0) L 21.3 PG (27.0-31.0) L Mean Corpuscular Hemoglobin Concent 29.7 G/DL (32.0-36.0) L 29.7 G/DL (32.0-36.0) L Red Cell Distribution Width 23.1 % (11.6-14.8) H 23.7 % (11.6-14.8) H Platelet Count 408 K/UL (150-450) 360 K/UL (150-450) Mean Platelet Volume 6.5 FL (6.5-10.1) 5.4 FL (6.5-10.1) L Neutrophils (%) (Auto) % (45.0-75.0) 75.3 % (45.0-75.0) H Lymphocytes (%) (Auto) % (20.0-45.0) 16.2 % (20.0-45.0) L Monocytes (%) (Auto) % (1.0-10.0) 7.3 % (1.0-10.0) Eosinophils (%) (Auto) % (0.0-3.0) 1.0 % (0.0-3.0) Basophils (%) (Auto) % (0.0-2.0) 1.2 % (0.0-2.0) Differential Total Cells Counted 100 Neutrophils % (Manual) 84 % (45-75) H Lymphocytes % (Manual) 13 % (20-45) L Monocytes % (Manual) 3 % (1-10) Eosinophils % (Manual) 0 % (0-3) Basophils % (Manual) 0 % (0-2) Band Neutrophils 0 % (0-8) Platelet Estimate Adequate Platelet Morphology Normal Polychromasia 1+ Hypochromasia 3+ Anisocytosis 3+ Microcytosis 2+ Prothrombin Time 10.3 SEC (9.30-11.50) Prothrombin Time INR 0.9 (0.9-1.1) Activated Partial Thromboplast Time 25 SEC (23-33) Sodium Level 137 MMOL/L (136-145) Potassium Level 4.2 MMOL/L (3.5-5.1) Chloride Level 103 MMOL/L (98-107) Carbon Dioxide Level 27 MMOL/L (21-32) Anion Gap 7 mmol/L (5-15) Blood Urea Nitrogen 13 mg/dL (7-18) Creatinine 1.0 MG/DL (0.55-1.30) Estimated Glomerular Filtration Rate > 60 mL/min (>60) Glucose Level 202 MG/DL (74-106) H Calcium Level 7.5 MG/DL (8.5-10.1) L Ferritin 2 NG/ML (8-388) L Total Bilirubin 0.3 MG/DL (0.2-1.0) Aspartate Amino Transferase (AST) 17 U/L (15-37) Alanine Aminotransferase (ALT) 17 U/L (12-78) Alkaline Phosphatase 93 U/L (46-116) Lactate Dehydrogenase 159 U/L (81-234) Total Creatine Kinase 49 U/L (26-308) Troponin I 0.006 ng/mL (0.000-0.056) C-Reactive Protein, Quantitative 5.0 mg/dL (0.00-0.90) H Pro-B-Type Natriuretic Peptide 1775 pg/mL (0-125) H Total Protein 7.5 G/DL (6.4-8.2) Albumin 3.2 G/DL (3.4-5.0) L Globulin 4.3 g/dL Albumin/Globulin Ratio 0.7 (1.0-2.7) L Lipase 64 U/L (73-393) L Urine Color Pale yellow Urine Appearance Slightly cloudy Urine pH 6 (4.5-8.0) Urine Specific Pollard 1.010 (1.005-1.035) Urine Protein 2+ (NEGATIVE) H Urine Glucose (UA) Negative (NEGATIVE) Urine Ketones Negative (NEGATIVE) Urine Blood 4+ (NEGATIVE) H Urine Nitrite Positive (NEGATIVE) H Urine Bilirubin Negative (NEGATIVE) Urine Urobilinogen Normal MG/DL (0.0-1.0) Urine Leukocyte Esterase 3+ (NEGATIVE) H Urine RBC 2-4 /HPF (0 - 2) H Urine WBC 20-30 /HPF (0 - 2) H Urine Squamous Epithelial Cells Few /LPF (NONE/OCC) Urine Bacteria Many /HPF (NONE) H EKG Diagnostic Results Rate: normal Rhythm: NSR ST Segments: no acute changes - LAD, strain Rhythm Strip Diag. Results EP Interpretation: yes Rhythm: NSR, no PVC's, no ectopy Chest X-Ray Diagnostic Results Chest X-Ray Diagnostic Results : Chest X-Ray Ordered: Yes # of Views/Limited/Complete: 1 View Indication: Other EP Interpretation: Yes Interpretation: no consolidation, no effusion, no pneumothorax Impression: No acute disease Electronically Signed by: Electronically signed by Wade Rivas MD Last Vital Signs Date Time Temp Pulse Resp B/P (MAP) Pulse Ox O2 Delivery O2 Flow Rate FiO2 03/27/20 00:00 98.2 89 18 113/57 (75) 97 03/26/20 23:06 Room Air Status: improved Disposition: ADMITTED INPATIENT Condition: Serious Referrals: NOT CHOSEN IPA/,REFERRING (PCP) Wade Rivas MD Mar 26, 2020 18:05
[2020-03-26 18:42] LABS: HEMATOCRIT 17.1 % (37.0-47.0); MEAN CORPUSCULAR VOLUME 72 FL (80-99); PLATELET COUNT 408 K/UL (150-450); RED BLOOD COUNT 2.38 M/UL (4.20-5.40); RED CELL DISTRIBUTION WIDTH 23.1 % (11.6-14.8); WHITE BLOOD COUNT 7.1 K/UL (4.8-10.8)
[2020-03-26 18:51] LABS: ANION GAP 7 mmol/L (5-15); BLOOD UREA NITROGEN 13 mg/dL (7-18); CALCIUM 7.5 MG/DL (8.5-10.1); CARBON DIOXIDE 27 MMOL/L (21-32); CHLORIDE 103 MMOL/L (98-107); POTASSIUM 4.2 MMOL/L (3.5-5.1); SODIUM 137 MMOL/L (136-145)
[2020-03-26 18:52] LABS: INR 0.9 (0.9-1.1)
--- NOTE | 2020-03-26 18:53 | NUR ---
ED Nurse Note: resent redraw of CBC and 1 pink top
[2020-03-26 19:01] LABS: HEMOGLOBIN 5.1 G/DL (12.0-16.0)
[2020-03-26 19:14] LABS: ALANINE AMINOTRANSFERASE 17 U/L (12-78); ALBUMIN 3.2 G/DL (3.4-5.0); ALBUMIN/GLOBULIN RATIO 0.7 (1.0-2.7); ALKALINE PHOSPHATASE 93 U/L (46-116); ASPARTATE AMINO TRANSFERASE 17 U/L (15-37); BILIRUBIN,TOTAL 0.3 MG/DL (0.2-1.0); CREATINE KINASE 49 U/L (26-308); FERRITIN 2 NG/ML (8-388); LACTATE DEHYDROGENASE 159 U/L (81-234)
--- NOTE | 2020-03-26 19:19 | NUR ---
HAND-OFF: Report given to margret PICKETT.
[2020-03-26 21:39] LABS: HEMATOCRIT 16.4 % (37.0-47.0); MEAN CORPUSCULAR VOLUME 72 FL (80-99); PLATELET COUNT 360 K/UL (150-450); RED BLOOD COUNT 2.29 M/UL (4.20-5.40); RED CELL DISTRIBUTION WIDTH 23.7 % (11.6-14.8); WHITE BLOOD COUNT 6.1 K/UL (4.8-10.8)
[2020-03-26 21:44] LABS: BASOPHILS % (AUTO) 1.2 % (0.0-2.0); HEMOGLOBIN 4.9 G/DL (12.0-16.0); LYMPHOCYTES % (AUTO) 16.2 % (20.0-45.0); MONOCYTES % (AUTO) 7.3 % (1.0-10.0); NEUTROPHILS % (AUTO) 75.3 % (45.0-75.0)
[2020-03-26 21:57] LABS: APPEARANCE,URINE SLIGHTLY CLOUDY; BILIRUBIN, URINE NEGATIVE (NEGATIVE); COLOR,URINE PALE YELLOW; GLUCOSE, URINE (UA) NEGATIVE (NEGATIVE); KETONES,URINE NEGATIVE (NEGATIVE); LEUKOCYTE ESTERASE ,URINE 3+ (NEGATIVE); NITRITE,URINE POSITIVE (NEGATIVE); PH,URINE 6 (4.5-8.0); PROTEIN,URINE 2+ (NEGATIVE); UROBILINOGEN,URINE NORMAL MG/DL (0.0-1.0)
--- NOTE | 2020-03-26 22:19 | NUR ---
ED Nurse Note: Report given to MARLYS Whelan.
--- NOTE | 2020-03-26 22:29 | NUR ---
ED Nurse Note: Belongings list completed, unable to obtain home med list d/t patient does not know dosages and names of medications.
--- NOTE | 2020-03-26 22:49 | NUR ---
ED Nurse Note: Per ANNALISE, ok to bring up patient with first unit of blood tranfusing.
--- NOTE | 2020-03-26 23:06 | NUR ---
TRANSFER TO FLOOR: Patient transferred to telemetry as ordered, per ERMD. Report given to MARLYS Whelan. Patient transported via gurney on ACLS protocol with parish visitor accompanied by 2 RN in stable condition.
--- NOTE | 2020-03-26 23:54 | NUR ---
NURSE NOTES: Received patient report from NED Genao RN. Patient was transported to floor without incident. Patient is AO x3. Patient is complaining of upper quadrant abdominal pain. Patient is being transfused with 1 unit of PRBCs at the moment. Patient shows no signs of respiratory distress. IV is patent and flushed. There are no signs of erythema, infiltration, or bleeding. Patient is connected to telemetry threat monitoring analyst and is showing normal sinus rhythm. Bed is in the lowest position, call light is within reach, side rails up x 3. Will continue to monitor.
[2020-03-27] VITALS: BP 113/57
--- NOTE | 2020-03-27 | NUR ---
Called Dr. Rodríguez to verify orders for PRBCs. 2 units were ordered form ER and Dr. Rodríguez ordered 2 more. Awaiting call back.
--- NOTE | 2020-03-27 01:37 | NUR ---
NURSE NOTES: First unit of PRBCs was finished, when I checked patients vitals her temperature was 98.8. Before starting the second unit I rechecked the patients temperature and this time it was 99.9. I rechecked it again and it went up to 100.0. I checked it a third time and it came out 100.8. I held the second unit of PRBCs and called Dr. Rodríguez informing him of the situation and asked for tylenol. Awaiting for call back.
[2020-03-27 04:00] VITALS: BP 125/66
[2020-03-27 06:23] LABS: HEMATOCRIT 22.7 % (37.0-47.0); MEAN CORPUSCULAR VOLUME 78 FL (80-99); PLATELET COUNT 320 K/UL (150-450); RED BLOOD COUNT 2.93 M/UL (4.20-5.40); RED CELL DISTRIBUTION WIDTH 21.3 % (11.6-14.8); WHITE BLOOD COUNT 7.7 K/UL (4.8-10.8)
[2020-03-27] MEDS ORDERED: Levothyroxine 125mcg tab ORAL SCH (06:30)
[2020-03-27] MEDS: NovoLOG Insulin Flexpen SUBQ SCH ×4 (06:30→20:50)
[2020-03-27] MEDS ORDERED: NovoLOG Insulin Flexpen SUBQ SCH (06:30)
[2020-03-27 06:52] LABS: ALANINE AMINOTRANSFERASE 10 U/L (12-78); ALBUMIN 2.8 G/DL (3.4-5.0); ALBUMIN/GLOBULIN RATIO 0.7 (1.0-2.7); ALKALINE PHOSPHATASE 85 U/L (46-116); ANION GAP 8 mmol/L (5-15); ASPARTATE AMINO TRANSFERASE 19 U/L (15-37); BILIRUBIN,TOTAL 0.8 MG/DL (0.2-1.0); BLOOD UREA NITROGEN 10 mg/dL (7-18); CALCIUM 7.3 MG/DL (8.5-10.1); CARBON DIOXIDE 25 MMOL/L (21-32); CHLORIDE 108 MMOL/L (98-107); CREATININE 0.8 MG/DL (0.55-1.30); POTASSIUM 3.6 MMOL/L (3.5-5.1); SODIUM 141 MMOL/L (136-145)
[2020-03-27 07:00] LABS: HEMOGLOBIN 6.8 G/DL (12.0-16.0)
--- NOTE | 2020-03-27 07:15 | NUR ---
HAND-OFF: Report given to MARLYS Garcia. Patient shows no signs of distress. Endorsed hemoglobin level. Also let nurse know about fever after blood transfusion and that the second unit was held.
--- NOTE | 2020-03-27 07:30 | NUR ---
NURSE NOTES: Received pt from MARLYS Whelan, pt is awake and alert, pt has NC 2LMP, pt has intact iv access RAC 20G SL. RN called Dr Rodríguez regarding HB 6.8 and T 99.9 and if we start blood transfusion, waiting to call back. pt is eating breakfast by observation. all needs attended, bed is locked and is in the lowest position, call light within easy reach. will continue to monitor.
[2020-03-27 08:00] VITALS: BP 111/63
--- NOTE | 2020-03-27 08:19 | NUR ---
CASE MANAGEMENT:REVIEW 44 YR OLD FEMALE WALKED IN TO ER CC: UPPER BACK PAIN RADIATING TO STOMACH SI: ANEMIA. DYSFUNCTIONAL UTERINE BLEEDING. UTI 98.2 81 20 89/58 100% ON RA H/H-4.9/16.4 IS: IV MORPHINE 500CC NS BOLUS IV BENADRYL IV REGLAN IV PEPCID 1L NS BOLUS CXR TYPE&SCREEN : TO TELEMETRY UNIT IS: TRANSFUSE 4 UNITS PRBC'S Addendum: 03/27/20 at 0831 by BARRON RODRIGUES, FLORICULTURIST FLORICULTURIST INTERQUAL CRITERIA MET
--- NOTE | 2020-03-27 08:32 | NUR ---
NURSE NOTES: Dr Rodríguez called back and ordered to do rapid swab for covid 19 and ordered to start blood transfusion with T 99.9 and HB 6.8, noted and carried out, will continue to monitor.
--- NOTE | 2020-03-27 08:43 | NUR ---
NURSE NOTES: practical nursing teacher Tristan is aware about Rapid test, answered because she doesn't have criteria for rapid test we have to do regular test, Dr Rodríguez is aware.
--- NOTE | 2020-03-27 10:00 | Diagnostic Imaging Report ---
Indication: Chest pain Technique: One view of the chest Comparison: 11/29/2019 Findings: Lungs and pleural spaces are clear. The heart size is normal. No significant interim change Impression: Negative
[2020-03-27 12:00] VITALS: BP 122/65
--- NOTE | 2020-03-27 13:08 | NUR ---
NURSE NOTES: blood transfusion started 1030 and finished 1300, pt is stable, no reaction noted. V/S stable, BP 125/69 HR 89 T 98.6 SPO2 98%. no complain of pain at this moment. empty bag returned to lab.
--- NOTE | 2020-03-27 13:15 | Consultation ---
DATE OF CONSULTATION: 03/27/2020 PULMONARY CONSULTATION CONSULTING PHYSICIAN: Nitesh Palmer MD. HISTORY OF PRESENT ILLNESS: This is a 44-year-old female admitted to the hospital with shortness of breath. The patient has worsened overnight and I have been asked for pulmonary consultation. The patient presented to the emergency room yesterday complaining of diffuse body ache and chest pain. She is a known diabetic. Currently saturating well on 2 L of oxygen. The patient was found to be anemic as well. PAST MEDICAL HISTORY: Previous syncope, anemia, dysfunctional uterine bleeding, diabetes mellitus. CURRENT MEDICATIONS: Reviewed and reconciled in the chart. ALLERGIES: None reported. REVIEW OF SYSTEMS: Denies any headaches, hematemesis, melena, or hematochezia. PHYSICAL EXAMINATION: GENERAL: Reveals a 44-year-old female. VITAL SIGNS: Blood pressure is 110/60, heart rate 84, respirations . She is afebrile. T-max 101.8 yesterday. HEENT: Unremarkable. LUNGS: Decreased breath sounds bilaterally. HEART: Normal heart sounds. ABDOMEN: Soft. EXTREMITIES: There is no edema. IMAGING STUDIES: X-ray chest obtained yesterday shows clear lung figueroa bilaterally. COVID-19 PCR is pending. LABORATORY DATA: Lab testing shows hemoglobin currently of 6.8, white count is normal. Platelet count is normal. Chemistries are normal. Coags are negative. Urinalysis negative except for few pus cells. IMPRESSION: 1. Urinary tract infection. 2. Anemia. 3. Fever. DISCUSSION: Admit to the hospital. Continue oxygen. We will check COVID-19 rapid PCR. Broad spectrum antibiotics. We will follow as washtub worker. Nitesh Palmer M.D. DR: DYANA JOB#: [id number] CC:
--- NOTE | 2020-03-27 15:24 | NUR ---
NURSE NOTES: pt complaining abd pain 10/10, Dr Rodríguez is aware waiting to call back. will continue to monitor.
--- NOTE | 2020-03-27 15:30 | NUR ---
NURSE NOTES: Dr Rodríguez called back and ordered Mylanta, noted and carried out.
[2020-03-27 16:00] VITALS: BP 128/58
[2020-03-27 20:00] VITALS: BP 126/69
--- NOTE | 2020-03-27 20:00 | NUR ---
NURSE NOTES: Received hand-off report from MARLYS Garcia. Patient in stable condition. IV 20g antecubital intact, patent, flushing well, no leaking, no tenderness, no redness. Bed in lowest and locked position, bed alarm activated, cardiac leads on and radiation monitor working, call light within reach.
--- NOTE | 2020-03-27 20:02 | NUR ---
HAND-OFF: Report given to MARLYS Begum. pt is awake and stable, Endorsed plan of care.
[2020-03-27] MEDS ORDERED: Iron Sucrose 100 MG in NS 55 ML IV ONE (22:45)
--- NOTE | 2020-03-27 23:29 | NUR ---
NURSE NOTES: Patient in stable condition, received and tolerated water and ice well, no complaints of pain, normal bowel sounds in all four quadrants, non-tender, no mass, non-distended abdomen.
[2020-03-28] VITALS: BP 130/65
--- NOTE | 2020-03-28 00:20 | NUR ---
NURSE NOTES: Called [employer] regarding status of Venofer, account service representative will call back.
[2020-03-28] MEDS ORDERED: Iron Sucrose 100 MG in NS 55 ML IV ONE (00:30)
--- NOTE | 2020-03-28 00:45 | History and Physical Report ---
DATE OF ADMISSION: 03/27/2020 REASON FOR ADMISSION: Severe anemia. HISTORY OF PRESENT ILLNESS: This is a 44-year-old female with a known history of dysfunctional uterine bleeding. She has been hospitalized here almost a year ago with similar symptoms and was seen by Gynecology and recommended for outpatient follow up, but failed to comply. She notes increasing shortness of breath and weakness and was noted to have a hemoglobin below 5 on presentation. She also notes body aches, chest pain, and cough for the past day. PAST MEDICAL HISTORY: Thickened endometrial lining noted in March 2019, hypothyroidism, pulmonary hypertension, history of acute myocardial infarction precipitated by severe anemia, iron deficiency, type 2 diabetes mellitus. ALLERGIES: None. MEDICATIONS: Reviewed. FAMILY HISTORY: Noncontributory. SOCIAL HISTORY: Negative for smoking, alcohol, or substance abuse. REVIEW OF SYSTEMS: Otherwise unremarkable. PHYSICAL EXAMINATION: VITAL SIGNS: In the emergency room blood pressure 89/58, heart rate 81, respiratory rate 20, afebrile. Presently blood pressure 123/65, heart rate 79, respiratory rate 20, temperature 99.5 max. LUNGS: Few rhonchi. CARDIAC: Regular rhythm and rate. Normal S1, S2. ABDOMEN: Soft. EXTREMITIES: No edema. Chest x-ray with no acute process. LABORATORY DATA: White count 7.7, hemoglobin 6.8 post transfusion. Chemistry panel within normal limits. TSH 34. IMPRESSION: 1. Severe anemia. 2. Probable chronic dysfunctional uterine bleeding. 3. Hypothyroidism. 4. Type 2 diabetes mellitus. 5. Noncompliance. PLAN: 1. Transfuse packed red blood cells. 2. Advance thyroid replacement. 3. Insulin titration. 4. No anti-platelet drugs. 5. Outpatient Gynecology follow up to be arranged although in the past appointments were missed by patient. Wade Rodríguez M.D. DR: SHAHID JOB#: [id number] CC: PEPE
--- NOTE | 2020-03-28 00:49 | NUR ---
NURSE NOTES: Venofer was checked for availability in the ER Pyxis and it still has not been activated by pharmacy. Kamila, Pharmacist, has rescheduled the medication for the morning.
[2020-03-28 04:00] VITALS: BP 118/62
--- NOTE | 2020-03-28 04:48 | NUR ---
NURSE NOTES: Notified Rosmery Pharmacist regarding the rescheduling of the Venofer due to it being unavailable in the Pyxis. Rosmery rescheduled it for 09:00 03/28/2020. Will endorse to the next shift.
--- NOTE | 2020-03-28 04:53 | NUR ---
NURSE NOTES: Notified Dr. Rodríguez regarding Venofer being rescheduled by pharmacy due to it being unavailable.
--- NOTE | 2020-03-28 05:03 | NUR ---
NURSE NOTES: Received call from microbiologyMarco A, blood culture showed gram negative rods.
[2020-03-28] MEDS: NovoLOG Insulin Flexpen SUBQ SCH ×4 (05:54→21:42)
[2020-03-28 06:08] LABS: HEMATOCRIT 27.7 % (37.0-47.0); HEMOGLOBIN 8.6 G/DL (12.0-16.0); MEAN CORPUSCULAR VOLUME 81 FL (80-99); PLATELET COUNT 266 K/UL (150-450); RED BLOOD COUNT 3.43 M/UL (4.20-5.40); WHITE BLOOD COUNT 15.2 K/UL (4.8-10.8)
--- NOTE | 2020-03-28 07:13 | NUR ---
HAND-OFF: Report given to MARLYS Carpenter. Patient in stable condition, hospital monitor in place, bed in lowest and locked position, bed alarm activated, call light within reach. Endorsed the plan of care, Venofer rescheduled, and the blood culture that showed gram negative rods. Awaiting doctor's orders. Blood bank will call back when PRBCs are available.
--- NOTE | 2020-03-28 07:35 | NUR ---
NURSE NOTES: Received report from MARLYS Mcwilliams. Patient is asleep. No signs of pain or distress. Breathing is regular and unlabored on room air. Radial pulses palpable. Skin is pink, warm, and dry. Cap refill <3 seconds. R AC 20 g PIV saline locked. No redness or signs of infiltration. Bed low and locked, call light in reach, side rails x2 padded. Will continue to monitor.
--- NOTE | 2020-03-28 07:40 | NUR ---
NURSE NOTES: Per Larisa in Blood Bank, pt. no longer meets criteria for transfusion and per Dr. Rodríguez's order as H&H 8.6/27.7.
[2020-03-28 07:55] VITALS: BP 120/60
--- NOTE | 2020-03-28 08:04 | NUR ---
NURSE NOTES: Discussed order for transfusion of PRBC and order for Venofer with Gregorio/supervisor sawing and assembly. It was determined that transfusion is not indicated, per order, as Hgb >8. Will hold Venofer until the above is discussed with Dr. Rodríguez.
[2020-03-28] MEDS ORDERED: metFORMIN 500mg tab ORAL SCH ×2 (09:00→16:30)
[2020-03-28] MEDS ORDERED: Iron Sucrose 100 MG in NS 55 ML IV SCH ×2 (09:00→21:00)
--- NOTE | 2020-03-28 09:20 | NUR ---
NURSE NOTES: Neck Band Maker at bedside for US.
--- NOTE | 2020-03-28 10:17 | NUR ---
NURSE NOTES: Dr. Rodríguez updated regarding H&H 8.6/27.7, WBC 15.2, Venofer started this AM, COVID, urine, and blood culture results. No new orders at this time.
--- NOTE | 2020-03-28 11:18 | NUR ---
NURSE NOTES: Spoke with Dr. Rodríguez. Per , no need for transfusion at this time and will enter orders to change isolation status as well as antibiotics for positive blood/urine cultures.
[2020-03-28 12:00] VITALS: BP 137/72
--- NOTE | 2020-03-28 12:19 | NUR ---
CASE MANAGEMENT:REVIEW SI;DYSFUNCTIONAL UTERINE BLEEDING. UTI. ANEMIA. 100.0 91 20 137/72 96% ON RA WBC 15.1 H/H 8.6/27.7 IS;IRON SUCROSE IV HS ZOSYN IV Q8 PEPCID PO TELEMETRY STATUS DCP;PATIENT IS FROM HOME PLAN;TRANSFUSE PRN
--- NOTE | 2020-03-28 12:32 | Pulmonology Progress Note ---
Subjective Interval Events: Looking better; low grade fever Constitutional: Reports: no symptoms HEENT: Repors: no symptoms Respiratory: Reports: no symptoms Cardiovascular: Reports: no symptoms Gastrointestinal/Abdominal: Reports: no symptoms Allergies: Coded Allergies: No Known Allergies (Verified , 09/02/07) Objective Last 24 Hour Vital Signs Date Time Temp Pulse Resp B/P (MAP) Pulse Ox O2 Delivery O2 Flow Rate FiO2 03/28/20 12:20 99.9 03/28/20 12:00 91 03/28/20 12:00 100.0 91 20 137/72 (93) 100 03/28/20 09:00 Room Air 03/28/20 08:47 120/60 03/28/20 08:00 79 03/28/20 07:55 98.2 89 18 120/60 (80) 96 03/28/20 04:00 98.4 79 16 118/62 (80) 99 03/28/20 04:00 79 03/28/20 00:00 84 03/28/20 00:00 98.8 84 20 130/65 (86) 98 03/27/20 21:00 Nasal Cannula 2.0 03/27/20 20:00 97.7 76 17 126/69 (88) 99 03/27/20 16:00 97.7 96 18 128/58 (81) 98 03/27/20 15:20 95 Intake and Output 03/27/20 03/28/20 19:00 07:00 Intake Total 610 ml 480 ml Output Total 350 ml Balance 260 ml 480 ml Intake Oral 360 ml 480 ml Blood Product 250 ml Output Urine Total 350 ml # Voids 3 General Appearance: no acute distress HEENT: normocephalic Respiratory: chest wall non-tender, lungs clear Cardiovascular: normal peripheral pulses Abdomen: normal bowel sounds Microbiology Date/Time Source Procedure Growth Status 03/27/20 05:34 Blood Blood Culture - Preliminary Gram Negative Hugo Resulted 03/27/20 11:05 Nasopharynx Coronavirus COVID-19 PCR (JAMES) - Final Complete 03/26/20 21:32 Urine,Clean Catch Urine Culture - Preliminary Gram Negative Hugo Resulted Laboratory Tests 03/27/20 15:13: POC Whole Blood Glucose [Pending] 03/27/20 20:36: POC Whole Blood Glucose 285H 03/28/20 04:00: White Blood Count 15.2#H, Red Blood Count 3.43L, Hemoglobin 8.6L, Hematocrit 27.7L, Mean Corpuscular Volume 81, Mean Corpuscular Hemoglobin 25.1L, Mean Corpuscular Hemoglobin Concent 31.1L, Red Cell Distribution Width 22.0H, Platelet Count 266, Mean Platelet Volume 6.0L, Neutrophils (%) (Auto) , Lymphocytes (%) (Auto) , Monocytes (%) (Auto) , Eosinophils (%) (Auto) , Basophils (%) (Auto) , Differential Total Cells Counted 100, Neutrophils % ( Manual) 94H, Lymphocytes % (Manual) 5L, Monocytes % (Manual) 1, Eosinophils % ( Manual) 0, Basophils % (Manual) 0, Band Neutrophils 0, Platelet Estimate Adequate, Platelet Morphology Normal, Polychromasia 1+, Hypochromasia 2+, Anisocytosis 3+, Microcytosis 1+ Current Medications Medications (Trade) Dose Ordered Sig/Alycia Route PRN Reason Start Time Stop Time Status Last Admin Dose Admin Acetaminophen (Tylenol) 650 mg Q4H PRN ORAL Mild Pain (Pain Scale 1-3) 03/27/20 01:45 04/26/20 01:44 03/28/20 11:22 Al Hydroxide/Mg Hydroxide (Mylanta) 30 ml Q6H PRN ORAL Abdominal cramps 03/27/20 15:30 04/26/20 15:29 Benazepril HCl (Lotensin) 20 mg DAILY ORAL 03/28/20 09:00 04/27/20 08:59 03/28/20 08:47 Dextrose (Dextrose 50%) 25 ml Q30M PRN IV Hypoglycemia 03/27/20 01:45 06/25/20 01:44 Dextrose (Dextrose 50%) 50 ml Q30M PRN IV Hypoglycemia 03/27/20 01:45 06/25/20 01:44 Diphenhydramine HCl (Benadryl) 25 mg Q6H PRN ORAL Itching 03/26/20 23:30 04/25/20 23:29 Famotidine (Pepcid) 20 mg DAILY ORAL 03/27/20 09:00 06/25/20 08:59 03/28/20 08:48 Insulin Aspart (NovoLOG) BEFORE MEALS AND HS SUBQ 03/27/20 06:30 06/25/20 06:29 03/28/20 11:32 Iron Sucrose 100 mg/Sodium Chloride 60 ml @ 240 mls/hr QHS IV 03/29/20 21:00 04/01/20 21:14 Levothyroxine Sodium (Synthroid) 150 mcg DAILY@0630 ORAL 03/28/20 06:30 04/27/20 06:29 03/28/20 06:43 Metformin HCl (Glucophage) 500 mg TIAC ORAL 03/28/20 16:30 04/27/20 16:29 Piperacillin Sod/ Tazobactam Sod 3.375 gm/Sodium Chloride 110 ml @ 27.5 mls/hr EVERY 8 HOURS IVPB 03/28/20 14:00 04/02/20 13:59 Assessment/Plan Assessment/Plan IMPRESSION: 1. Urinary tract infection. 2. Anemia. 3. Fever. 4. Bacteremia DISCUSSION: Continue oxygen prn. Has negative COVID-19 PCR. Broad spectrum antibiotics. 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 Dia Garza Omar Syed MD Mar 28, 2020 12:32
[2020-03-28] MEDS ORDERED: Piperacillin/Tazobactam 3.375 GM in NS 110 ML IVPB SCH (14:00)
--- NOTE | 2020-03-28 14:49 | Diagnostic Imaging Report ---
Indication: Vaginal bleeding, pelvic pain, history of fibroids, critical anemia, non patient Technique: Transabdominal and transvaginal images of the pelvis. Doppler interrogation of the ovaries Comparison: 11/30/2019 Findings: Uterus measures 10.7 cm length by 4.5 cm AP. Endometrium measures 4 normal thick. Subtle hypoechoic small fibroids are again demonstrated within the uterine myometrium. There is suggestion of a fluid-filled tubular structure in the right adnexal region. There is a section scar noted. 1.8 cm slightly hypoechoic hypervascular lesion is noted in the cervix adjacent to the endocervical canal. The left ovary measures 3 cm length. The right ovary measures 2.9 cm length. Both ovaries demonstrate normal flow on Doppler. Previously demonstrated left ovarian cyst is no longer evident. There is a small amount of free cul-de-sac fluid some debris is seen within the urinary bladder. Impression: Uterine fibroids, also previously noted. Hypoechoic hypervascular cervical lesion most likely represents a cervical fibroid, less likely a polyp. In any case unchanged. Fluid-filled structure in the right adnexal region, most likely a loop of small bowel, hydrosalpinx less likely but not excludable. Small amount of free fluid, most likely physiologic Interim resolution of previously demonstrated left ovarian cyst. Some debris within the urinary bladder. This is a nonspecific finding
[2020-03-28 15:58] VITALS: BP 123/66
--- NOTE | 2020-03-28 16:17 | NUR ---
NURSE NOTES: Md Rodríguez came to nursing station wanting isolation status removed.
--- NOTE | 2020-03-28 17:09 | NUR ---
NURSE NOTES: MD Rodríguez at bedside. Made aware that pt. spiking temp 99.9-100.8*F.
--- NOTE | 2020-03-28 17:54 | NUR ---
NURSE NOTES: Pt c/o ABD pain 04/05, cramping, does not radiate. Received TORB from Dr. Rodríguez for Tylenol #3 Q4H PRN for pain.
[2020-03-28] MEDS ORDERED: Tylenol #3 tab (300mg/30mg) ORAL PRN (18:00)
[2020-03-28] MEDS: Tylenol #3 tab (300mg/30mg) ORAL PRN (18:25)
--- NOTE | 2020-03-28 18:40 | NUR ---
NURSE NOTES: Reported off to MARLYS Betancourt. Patient transported off the floor with Gregorio/VIVI. Patient in stable condition. R AC 20 g SL, no redness or infiltration. Skin intact. Belongings with pt. Belongings verified with RN and form signed. Transfer orders entered.
--- NOTE | 2020-03-28 18:40 | NUR ---
NURSE NOTES: Report given received from MARLYS Carpenter from tele. Patient in stable condition, AAOx4, VS stable, and ambulatory. IV site patent and intact. RN went over belongings with patient. MARLYS Carpenter endorsed to RN OB stool needs to be collected. No skin issues noted. Instructed patient to use call light before ambulating. Seizure precaution maintained with side rails padded. Bed is locked and placed in lowest position with bed alarm on. Call light within reach. Will continue to monitor
--- NOTE | 2020-03-28 19:30 | NUR ---
NURSE NOTES: Received patient in no apparent distress. A&OX4. IV site patent and intact. Fall precaution due to anemia. Remind patient collect stool sample, call the nurse whenever need anything, especially when get out of bed, patient fully under stood. Call light within reach. Bed in lowest position, alarm on. Will continue to monitor.
[2020-03-28 20:00] VITALS: BP 114/62
[2020-03-28] MEDS: Piperacillin/Tazobactam 3.375 GM in NS 110 ML IVPB SCH (21:43)
--- NOTE | 2020-03-28 23:14 | Progress Note ---
DATE: 03/28/2020 SUBJECTIVE: Patient is febrile. She complains of mid-epigastric pain. Stool occult blood is pending. OBJECTIVE: NECK: Supple. LUNGS: Clear. CARDIAC: Regular, no murmur. ABDOMEN: Slightly tender in the midepigastric region with no guarding or rebound. LABORATORY DATA: Hemoglobin 8.6 following 3 units of packed cells. White count up to 15.2. The patient has positive blood cultures as well as positive urine culture for gram-negative rods. IMPRESSION: 1. Severe anemia. 2. Iron deficiency. 3. Hypothyroidism. 4. Gram-negative bacteremia. 5. Urinary tract infection. 6. Type 2 diabetes mellitus. 7. Uterine fibroid. 8. Abdominal pain. PLAN: 1. Await stool occult blood test. 2. Antibiotics initiated. 3. Await final cultures. 4. Thyroid replacement. 5. Iron replacement. 6. Consider GI workup if any signs of GI blood loss. Wade Rodríguez M.D. DR: FEDERICO JOB#: [id number] CC:
[2020-03-29] VITALS (7 sets, daily range): BP systolic 106–130; BP diastolic 58–80
[2020-03-29] MEDS: metFORMIN 500mg tab ORAL SCH ×2 (06:18→11:33)
[2020-03-29] MEDS: Piperacillin/Tazobactam 3.375 GM in NS 110 ML IVPB SCH ×3 (06:18→20:57)
[2020-03-29] MEDS: Tylenol #3 tab (300mg/30mg) ORAL PRN (06:18)
[2020-03-29] MEDS: NovoLOG Insulin Flexpen SUBQ SCH ×4 (06:20→19:53)
--- NOTE | 2020-03-29 07:20 | NUR ---
HAND-OFF: Report given to Libia FRANKEL.
--- NOTE | 2020-03-29 07:30 | NUR ---
NURSE NOTES: pt in bed resting, pt just had breakfast. pt is in pain 5/10. Bed in lowest position and locked. call light within reach. Still need to collect OB stool pt is aware and will use half hat. Will continue to monitor pt.
[2020-03-29 08:13] LABS: HEMATOCRIT 29.2 % (37.0-47.0); HEMOGLOBIN 9.1 G/DL (12.0-16.0); MEAN CORPUSCULAR VOLUME 80 FL (80-99); PLATELET COUNT 208 K/UL (150-450); RED BLOOD COUNT 3.63 M/UL (4.20-5.40); RED CELL DISTRIBUTION WIDTH 22.2 % (11.6-14.8); WHITE BLOOD COUNT 16.4 K/UL (4.8-10.8)
[2020-03-29 08:29] LABS: ALANINE AMINOTRANSFERASE 11 U/L (12-78); ALBUMIN 2.1 G/DL (3.4-5.0); ALBUMIN/GLOBULIN RATIO 0.5 (1.0-2.7); ALKALINE PHOSPHATASE 107 U/L (46-116); ANION GAP 9 mmol/L (5-15); ASPARTATE AMINO TRANSFERASE 18 U/L (15-37); BILIRUBIN,TOTAL 0.8 MG/DL (0.2-1.0); BLOOD UREA NITROGEN 22 mg/dL (7-18); CALCIUM 7.8 MG/DL (8.5-10.1); CARBON DIOXIDE 24 MMOL/L (21-32); CHLORIDE 101 MMOL/L (98-107); CREATININE 1.4 MG/DL (0.55-1.30); POTASSIUM 3.7 MMOL/L (3.5-5.1); SODIUM 134 MMOL/L (136-145)
--- NOTE | 2020-03-29 11:37 | Pulmonology Progress Note ---
Subjective Interval Events: Looking better; low grade fever Constitutional: Reports: no symptoms HEENT: Repors: no symptoms Respiratory: Reports: no symptoms Cardiovascular: Reports: no symptoms Gastrointestinal/Abdominal: Reports: no symptoms Allergies: Coded Allergies: No Known Allergies (Verified , 09/02/07) Objective Last 24 Hour Vital Signs Date Time Temp Pulse Resp B/P (MAP) Pulse Ox O2 Delivery O2 Flow Rate FiO2 03/29/20 09:09 109/61 03/29/20 08:00 97.9 80 18 109/61 (77) 98 03/29/20 04:00 98.5 80 18 106/58 (74) 97 03/29/20 00:00 99.0 80 19 121/70 (87) 98 03/28/20 21:00 Room Air 03/28/20 20:00 99.5 83 18 114/62 (79) 97 03/28/20 17:35 98.1 03/28/20 16:00 87 03/28/20 15:58 100.8 87 18 123/66 (85) 99 03/28/20 12:20 99.9 03/28/20 12:00 91 03/28/20 12:00 100.0 91 20 137/72 (93) 100 Intake and Output 03/28/20 03/29/20 19:00 07:00 Intake Total 1050 ml 110.0 ml Balance 1050 ml 110.0 ml Intake Oral 1050 ml IV Total 110.0 ml # Voids 3 2 # Bowel Movements 1 General Appearance: no acute distress HEENT: normocephalic Respiratory: chest wall non-tender, lungs clear Cardiovascular: normal peripheral pulses Abdomen: normal bowel sounds Microbiology Date/Time Source Procedure Growth Status 03/27/20 05:34 Blood Blood Culture - Preliminary Gram Negative Hugo Resulted 03/27/20 11:05 Nasopharynx Coronavirus COVID-19 PCR (JAMES) - Final Complete 03/26/20 21:32 Urine,Clean Catch Urine Culture - Final Escherichia Coli Complete Laboratory Tests 03/29/20 07:40: White Blood Count 16.4H, Red Blood Count 3.63L, Hemoglobin 9.1L, Hematocrit 29.2L, Mean Corpuscular Volume 80, Mean Corpuscular Hemoglobin 25.2L, Mean Corpuscular Hemoglobin Concent 31.3L, Red Cell Distribution Width 22.2H, Platelet Count 208, Mean Platelet Volume 6.8, Neutrophils (%) (Auto) , Lymphocytes (%) (Auto) , Monocytes (%) (Auto) , Eosinophils (%) (Auto) , Basophils (%) (Auto) , Differential Total Cells Counted 100, Neutrophils % ( Manual) 92H, Lymphocytes % (Manual) 3L, Monocytes % (Manual) 5, Eosinophils % ( Manual) 0, Basophils % (Manual) 0, Band Neutrophils 0, Platelet Estimate Adequate, Platelet Morphology Normal, Hypochromasia 2+, Anisocytosis 3+, Sodium Level 134L, Potassium Level 3.7, Chloride Level 101, Carbon Dioxide Level 24, Anion Gap 9, Blood Urea Nitrogen 22H, Creatinine 1.4H, Estimat Glomerular Filtration Rate 40.7, Glucose Level 190H, Calcium Level 7.8L, Magnesium Level 2.3, Total Bilirubin 0.8, Aspartate Amino Transf (AST/SGOT) 18, Alanine Aminotransferase (ALT/SGPT) 11L, Alkaline Phosphatase 107, Total Protein 6.4, Albumin 2.1L, Globulin 4.3, Albumin/Globulin Ratio 0.5L Current Medications Medications (Trade) Dose Ordered Sig/Alycia Route PRN Reason Start Time Stop Time Status Last Admin Dose Admin Acetaminophen (Tylenol) 650 mg Q4H PRN ORAL Mild Pain (Pain Scale 1-3)/fev 03/28/20 20:00 04/27/20 19:59 Acetaminophen/ Codeine Phosphate (Tylenol #3) 1 tab Q4H PRN ORAL Moderate Pain (Pain Scale 4-6) 03/28/20 18:15 04/04/20 18:14 03/29/20 06:18 Al Hydroxide/Mg Hydroxide (Mylanta) 30 ml Q6H PRN ORAL Abdominal cramps 03/28/20 23:00 04/26/20 22:59 Barium Sulfate (Readi-Cat 2) 450 ml NOW PRN ORAL Radiology Procedure 03/29/20 12:00 Benazepril HCl (Lotensin) 20 mg DAILY ORAL 03/29/20 09:00 04/27/20 08:59 03/29/20 09:09 Dextrose (Dextrose 50%) 25 ml Q30M PRN IV Hypoglycemia 03/28/20 18:15 06/25/20 01:44 Dextrose (Dextrose 50%) 50 ml Q30M PRN IV Hypoglycemia 03/28/20 18:15 06/25/20 01:44 Diphenhydramine HCl (Benadryl) 25 mg Q6H PRN ORAL Itching 03/28/20 18:30 04/25/20 18:29 Famotidine (Pepcid) 20 mg DAILY ORAL 03/29/20 09:00 06/25/20 08:59 03/29/20 09:06 Insulin Aspart (NovoLOG) BEFORE MEALS AND HS SUBQ 03/28/20 21:00 06/25/20 06:29 03/29/20 06:20 Iohexol (OMNIPAQUE-300 100ml) 100 ml NOW PRN INJ Radiology Procedure 03/29/20 12:00 Iron Sucrose 100 mg/Sodium Chloride 60 ml @ 240 mls/hr QHS IV 03/29/20 21:00 04/01/20 21:14 Levothyroxine Sodium (Synthroid) 150 mcg DAILY@0630 ORAL 03/29/20 06:30 04/27/20 06:29 03/29/20 06:18 Metformin HCl (Glucophage) 500 mg TIAC ORAL 03/29/20 06:30 04/27/20 16:29 03/29/20 11:33 Piperacillin Sod/ Tazobactam Sod 3.375 gm/Sodium Chloride 110 ml @ 27.5 mls/hr EVERY 8 HOURS IVPB 03/28/20 22:00 04/02/20 21:59 03/29/20 06:18 Assessment/Plan Assessment/Plan IMPRESSION: 1. Urinary tract infection. 2. Anemia. 3. Fever. 4. Bacteremia DISCUSSION: Continue oxygen prn. Has negative COVID-19 PCR. Broad spectrum antibiotics. 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 Currently saturating well on RA Dia Garza Omar Syed MD Mar 29, 2020 11:37
--- NOTE | 2020-03-29 11:45 | NUR ---
CASE MANAGEMENT:REVIEW 03/29/20 SI: ANEMIA D/T UTERINE BLEEDING BACTEREMIA. UTI 97.9 80 18 109/61 98% ON RA WBC+16.4 H/H-9.1/29.2 BUN+22 CR+1.4 CA-7.8 IS: IV ZOSYN Q8HRS IV VENOFER QHS LOTENSIN PO QD SYNTHROID PO QD METFORMIN PO TID AC : MED/SURG STATUS 4EAST DCP: FROM HOME PLAN: CT ABD
[2020-03-29] MEDS ORDERED: Omnipaque-300 100ml vial INJ PRN (12:00)
--- NOTE | 2020-03-29 13:30 | Consultation ---
DATE OF CONSULTATION: 03/29/2020 INFECTIOUS DISEASE CONSULTATION CONSULTING PHYSICIAN: Jonny White MD. REFERRING PHYSICIAN: Wade Rodríguez MD. REASON FOR CONSULTATION: Bacteremia. HISTORY OF PRESENTING ILLNESS: This is a 44-year-old lady with history of dysfunctional uterine bleeding, who was supposed to be seen by Gynecology as an outpatient, but she failed to comply. She came in with weakness, shortness of breath, and anemia. She was found to have bacteremia and an Infectious Disease consultation has been obtained for antibiotics. PAST MEDICAL HISTORY: 1. History of diabetes. 2. Pulmonary hypertension. 3. Hypothyroidism. 4. Myocardial infarction precipitated by anemia. 5. Thickened endometrial lining. SOCIAL HISTORY: She does not smoke, drink, or use drugs. FAMILY HISTORY: Noncontributory. REVIEW OF SYSTEMS: RESPIRATORY: No fever, chills, or cough. She did have shortness of breath. No chest pain. CARDIAC: No chest pain. No palpitation. No dizziness. No syncope. GASTROINTESTINAL: No nausea. No vomiting. No abdominal pain or diarrhea. MEDICATIONS: As an inpatient, she is on iron, benazepril, famotidine, levothyroxine, metformin, Mylanta, Zosyn, insulin, Tylenol, Benadryl, and Tylenol No. 3. ALLERGIES: No known drug allergies. PHYSICAL EXAMINATION: VITAL SIGNS: Temperature 97.9, T-max of 100.8, pulse of 80, respiratory rate 18, and blood pressure 109/61. O2 saturation of 98% on room air. HEENT: Pupils are equally reactive to light and accommodation. Mouth appears clean without thrush. NECK: Supple. No adenopathy. No JVD. CARDIOVASCULAR: Regular rate and rhythm. No murmurs. LUNGS: Clear to auscultation bilaterally. No crackles. No wheezes. ABDOMEN: Soft, nontender. No organomegaly. EXTREMITIES: No cyanosis, no clubbing, no edema. LABORATORY AND DIAGNOSTIC DATA: White count 16.4, hemoglobin 9.1, hematocrit 29.2, MCV 80, platelet count of 208,000 with neutrophils of 92%. Sodium 134, potassium 3.7, chloride 101, bicarb 24, BUN 22, creatinine 1.4. Glucose 190. Calcium 7.8. Total bilirubin 0.8, AST 18, ALT 11, alkaline phosphatase 107. Total protein 6.4, albumin 2.1. Lipase of 64. UA showing 20 to 30 white cells. Urine culture growing E. coli, but susceptible to ceftriaxone, Levaquin, piperacillin and tazobactam. 03/27/2020, blood culture is growing gram-negative rods. COVID-19 test is negative on 03/27/2020. Pelvic ultrasound showing uterine fibroids, possible polyp, fluid-filled structure in the right adnexal region. Chest x-ray is unremarkable. ASSESSMENT: This is a 44-year-old lady with history of dysfunctional uterine bleeding, pulmonary hypertension, hypothyroidism, diabetes, and myocardial infarction precipitated by severe anemia, who comes in with shortness of breath and is found to have, 1. Gram-negative sepsis, could be secondary to urinary tract infection. 2. E. coli urinary tract infection. 3. Increasing leukocytosis. 4. Anemia. 5. Diabetes. PLAN: 1. Continue Zosyn for now. 2. We will order CT abdomen and pelvis. 3. We will follow up cultures and adjust antibiotics accordingly. I would like to thank Dr. Rodríguez for this consultation. Jonny White M.D. DR: CHUY JOB#: [id number] CC:
--- NOTE | 2020-03-29 13:43 | NUR ---
NURSE NOTES: pt is nauseas, and hasn't had a BM since 03/25 notified doctor Marcos.
--- NOTE | 2020-03-29 14:05 | NUR ---
NURSE NOTES: report given to aixa Viera in stable condition. Endorsed plan of care.
--- NOTE | 2020-03-29 14:15 | NUR ---
NURSE NOTES: pt is in the bed alert and awake. no acute distress noted. call light is within reach.
[2020-03-29] MEDS: Docusate 250mg cap ORAL SCH (15:57)
--- NOTE | 2020-03-29 19:35 | NUR ---
HAND-OFF: Report given to Marsha.
[2020-03-29] MEDS: Iron Sucrose 100 MG in NS 55 ML IV SCH (19:48)
[2020-03-29] MEDS: Levemir Flexpen SUBQ SCH (19:53)
--- NOTE | 2020-03-29 20:29 | NUR ---
NURSE NOTES: Received patient awake, alert, verbal, sitting in bed, vomited thrice, subsequently given 4 mg of Zofran iv as prn medication.
[2020-03-29] MEDS ORDERED: Iron Sucrose 100 MG in NS 55 ML IV SCH (21:00)
--- NOTE | 2020-03-30 | Progress Note ---
DATE: 03/29/2020 CARDIOLOGY PROGRESS NOTE SUBJECTIVE: Patient has some abdominal pain. She has defervesced. Antimicrobials intravenously continued. Infectious Disease consultation appreciated. PHYSICAL EXAMINATION: VITAL SIGNS: Blood pressure 109/61, heart rate 80, respirations 18. LUNGS: Clear. CARDIAC: Regular. ABDOMEN: Mildly tender in the midepigastric region. EXTREMITIES: No edema. LABORATORY DATA: Urine culture is positive for E. coli sensitive to all antibiotics. Blood cultures gram-negative roman, pending. IMPRESSION: 1. Bacteremia. 2. Urinary tract infection with E. coli. 3. Sepsis. 4. Severe anemia. 5. Iron deficiency. Unclear source of bleeding. May be GI versus gynecologic. 6. Hypothyroidism. PLAN: No change in current treatment plan awaiting final cultures and CAT scan of the abdomen. Wade Rodríguez M.D. DR: SHAHID JOB#: [id number] CC:
[2020-03-30] MEDS: Piperacillin/Tazobactam 3.375 GM in NS 110 ML IVPB SCH ×3 (03:54→21:24)
[2020-03-30 04:36] VITALS: BP 110/63
[2020-03-30] MEDS: NovoLOG Insulin Flexpen SUBQ SCH ×4 (06:04→20:52)
[2020-03-30 06:57] LABS: HEMATOCRIT 31.8 % (37.0-47.0); HEMOGLOBIN 9.5 G/DL (12.0-16.0); MEAN CORPUSCULAR VOLUME 82 FL (80-99); PLATELET COUNT 211 K/UL (150-450); RED BLOOD COUNT 3.87 M/UL (4.20-5.40); RED CELL DISTRIBUTION WIDTH 23.1 % (11.6-14.8); WHITE BLOOD COUNT 15.7 K/UL (4.8-10.8)
--- NOTE | 2020-03-30 07:25 | NUR ---
NURSE NOTES: Received report from MARLYS Otero (JoJo). Patient A&Ox4. Mostly Albanian speaking. On room air, no signs of distress or labored breathing. IV intact, patent, and infusing IV antibiotics. Bed in lowest position with call light in reach. Will continue with plan of care.
--- NOTE | 2020-03-30 07:27 | NUR ---
HAND-OFF: Report given to MARLYS Chiu.
[2020-03-30 08:00] VITALS: BP 102/69
--- NOTE | 2020-03-30 09:42 | NUR ---
NURSE NOTES: PATIENT IS OFF THE UNIT FOR CT OF ABDOMEN AND PELVIS WITH CONTRAST. Patient escorted by Donald from radiology.
--- NOTE | 2020-03-30 09:55 | NUR ---
NURSE NOTES: PATIENT IS BACK ON THE UNIT.
[2020-03-30] MEDS: Docusate 250mg cap ORAL SCH (10:10)
[2020-03-30] MEDS: Tylenol #3 tab (300mg/30mg) ORAL PRN ×2 (10:11→17:42)
--- NOTE | 2020-03-30 10:28 | Diagnostic Imaging Report ---
EXAM: CT Abdomen and Pelvis With Intravenous Contrast CLINICAL HISTORY: ABSCESS TECHNIQUE: Axial computed tomography images of the abdomen and pelvis with intravenous contrast. CTDI is 4.3 mGy and DLP is to 208.3 mGy-cm. One or more of the following dose reduction techniques were used: automated exposure control, adjustment of the mA and/or kV according to patient size, use of iterative reconstruction technique. COMPARISON: CT October 10, 2017 FINDINGS: Lung bases: See below. Pleural space: Interval improvement of the previously described bilateral moderate pleural effusions on CT October 10, 2017. Now, small left and trace right pleural effusions remain. Mild left base atelectasis. ABDOMEN: Liver: Mild periportal edema, similar in appearance to October 10, 2017. Gallbladder and bile ducts: The gallbladder is distended. Minimal cholelithiasis. No ductal dilation. Pancreas: Unremarkable. No mass. No ductal dilation. Spleen: Unremarkable. No splenomegaly. Adrenals: Unremarkable. No mass. Kidneys and ureters: Unremarkable. No solid mass. No hydronephrosis. Stomach and bowel: Unremarkable. No obstruction. No mucosal thickening. PELVIS: Appendix: No findings to suggest acute appendicitis. Bladder: Unremarkable. No mass. Reproductive: Fibroid in the lower uterine segment, measuring 2.9 x 2. 6 cm which may be further evaluated with pelvic ultrasound if symptomatic. This appears more well circumscribed and hyperdense when compared to October 10, 2017. ABDOMEN and PELVIS: Intraperitoneal space: Unremarkable. No free air. No significant fluid collection. Bones/joints: No acute fracture. No dislocation. Soft tissues: Mild subcutaneous nodular density anterior to the right pelvis, located 6.1 cm inferior to the umbilicus and 4.5 cm to the right of midline, measuring 1.9 x 1.4 cm. This is nonspecific and should be correlated with physical exam. Vasculature: Unremarkable. No abdominal aortic aneurysm. Lymph nodes: Unremarkable. No enlarged lymph nodes. IMPRESSION: Interval improvement of the previously described bilateral moderate pleural effusions on CT October 10, 2017. Now, small left and trace right pleural effusions remain. Mild left base atelectasis. Fibroid in the lower uterine segment, measuring 2.9 x 2.6 cm which may be further evaluated with pelvic ultrasound if symptomatic. This appears more well circumscribed and hyperdense when compared to October 10, 2017. No small bowel obstruction or acute diverticulitis. Normal appendix. Cholelithiasis without gallbladder wall thickening, unchanged. Mild periportal edema, unchanged. Mild subcutaneous nodular density anterior to the right pelvis, located 6. 1 cm inferior to the umbilicus and 4.5 cm to the right of midline, measuring 1.9 x 1.4 cm. This is nonspecific and should be correlated with physical exam.
--- NOTE | 2020-03-30 11:42 | Pulmonology Progress Note ---
Subjective Interval Events: Looking better; low grade fever Constitutional: Reports: no symptoms HEENT: Repors: no symptoms Respiratory: Reports: no symptoms Cardiovascular: Reports: no symptoms Gastrointestinal/Abdominal: Reports: no symptoms Allergies: Coded Allergies: No Known Allergies (Verified , 09/02/07) Objective Last 24 Hour Vital Signs Date Time Temp Pulse Resp B/P (MAP) Pulse Ox O2 Delivery O2 Flow Rate FiO2 03/30/20 09:00 Room Air 03/30/20 08:00 97.9 86 18 102/69 (80) 98 03/30/20 04:36 98.4 83 18 110/63 (79) 97 03/29/20 23:59 98.4 82 18 127/66 (86) 97 03/29/20 20:35 Room Air 03/29/20 20:19 98.1 78 18 130/80 (97) 97 03/29/20 16:00 98.8 80 17 112/70 (84) 99 03/29/20 12:00 98.8 82 17 125/70 (88) 99 Intake and Output 03/29/20 03/30/20 19:00 07:00 Intake Total 800 ml 652.5 ml Balance 800 ml 652.5 ml IV Total 652.5 ml Other 800 ml # Voids 2 General Appearance: no acute distress HEENT: normocephalic Respiratory: chest wall non-tender, lungs clear Cardiovascular: normal peripheral pulses Abdomen: normal bowel sounds Laboratory Tests 03/30/20 05:35: White Blood Count 15.7H, Red Blood Count 3.87L, Hemoglobin 9.5L, Hematocrit 31.8L, Mean Corpuscular Volume 82, Mean Corpuscular Hemoglobin 24.6L, Mean Corpuscular Hemoglobin Concent 30.0L, Red Cell Distribution Width 23.1H, Platelet Count 211, Mean Platelet Volume 6.8, Neutrophils (%) (Auto) , Lymphocytes (%) (Auto) , Monocytes (%) (Auto) , Eosinophils (%) (Auto) , Basophils (%) (Auto) , Differential Total Cells Counted 100, Neutrophils % ( Manual) 89H, Lymphocytes % (Manual) 3L, Monocytes % (Manual) 8, Eosinophils % ( Manual) 0, Basophils % (Manual) 0, Band Neutrophils 0, Platelet Estimate Adequate, Platelet Morphology Normal, Hypochromasia 1+, Anisocytosis 3+ Current Medications Medications (Trade) Dose Ordered Sig/Alycia Route PRN Reason Start Time Stop Time Status Last Admin Dose Admin Acetaminophen (Tylenol) 650 mg Q4H PRN ORAL Mild Pain (Pain Scale 1-3)/fev 03/28/20 20:00 04/27/20 19:59 Acetaminophen/ Codeine Phosphate (Tylenol #3) 1 tab Q4H PRN ORAL Moderate Pain (Pain Scale 4-6) 03/28/20 18:15 04/04/20 18:14 03/30/20 10:11 Al Hydroxide/Mg Hydroxide (Mylanta) 30 ml Q6H PRN ORAL Abdominal cramps 03/28/20 23:00 04/26/20 22:59 Barium Sulfate (Readi-Cat 2) 450 ml NOW PRN ORAL Radiology Procedure 03/29/20 12:00 Bisacodyl (Dulcolax) 10 mg DAILYPRN PRN RECTAL Constipation 03/29/20 14:00 06/27/20 13:59 Dextrose (Dextrose 50%) 25 ml Q30M PRN IV Hypoglycemia 03/28/20 18:15 06/25/20 01:44 Dextrose (Dextrose 50%) 50 ml Q30M PRN IV Hypoglycemia 03/28/20 18:15 06/25/20 01:44 Diphenhydramine HCl (Benadryl) 25 mg Q6H PRN ORAL Itching 03/28/20 18:30 04/25/20 18:29 Docusate Sodium (Colace) 250 mg DAILY ORAL 03/29/20 14:00 04/28/20 13:59 03/30/20 10:10 Famotidine (Pepcid) 20 mg DAILY ORAL 03/29/20 09:00 06/25/20 08:59 03/30/20 10:10 Insulin Aspart (NovoLOG) BEFORE MEALS AND HS SUBQ 03/28/20 21:00 06/25/20 06:29 03/30/20 06:04 Insulin Detemir (Levemir) 10 units BEDTIME SUBQ 03/29/20 21:00 06/27/20 20:59 03/29/20 19:53 Iohexol (OMNIPAQUE-300 100ml) 100 ml NOW PRN INJ Radiology Procedure 03/29/20 12:00 Iron Sucrose 100 mg/Sodium Chloride 60 ml @ 240 mls/hr QHS IV 03/29/20 21:00 04/01/20 21:14 03/29/20 19:48 Levothyroxine Sodium (Synthroid) 150 mcg DAILY@0630 ORAL 03/29/20 06:30 04/27/20 06:29 03/30/20 06:03 Magnesium Hydroxide (Mom) 30 ml DAILYPRN PRN ORAL Constipation 03/29/20 14:00 04/28/20 13:59 Ondansetron HCl (Zofran) 4 mg Q6H PRN IVP Nausea & Vomiting 03/29/20 14:00 04/28/20 13:59 03/30/20 10:09 Piperacillin Sod/ Tazobactam Sod 3.375 gm/Sodium Chloride 110 ml @ 27.5 mls/hr EVERY 8 HOURS IVPB 03/28/20 22:00 04/02/20 21:59 03/30/20 03:54 Sodium Chloride 1,000 ml @ 100 mls/hr Q10H IV 03/29/20 13:48 04/28/20 13:47 03/29/20 15:56 Assessment/Plan Assessment/Plan IMPRESSION: 1. Urinary tract infection. 2. Anemia. 3. Fever. 4. Bacteremia DISCUSSION: Continue oxygen prn. Has negative COVID-19 PCR. Broad spectrum antibiotics. 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 Currently saturating well on RA Dia Garza Omar Syed MD Mar 30, 2020 11:42
[2020-03-30 12:00] VITALS: BP 101/66
--- NOTE | 2020-03-30 13:55 | NUR ---
CASE MANAGEMENT:REVIEW 03/30/20 SI: ANEMIA D/T UTERINE BLEEDING BACTEREMIA. UTI 97.5 HR 90 RR 18 B/P 101/66 SATS 96% ON RA LABS: WBC 15.7 NA 134 BUN 22 CR 1.4 CA 7.8 GLU 190 ALT 11 IS: IV ZOSYN Q8HRS IV VENOFER QHS LOTENSIN PO QD SYNTHROID PO QD METFORMIN PO TID AC : MED/SURG STATUS 4EAST DCP: FROM HOME
[2020-03-30] MEDS: Milk of Magnesia 30ml Ud ORAL PRN (15:29)
[2020-03-30 16:00] VITALS: BP 101/61
--- NOTE | 2020-03-30 18:16 | NUR ---
NURSE NOTES: Administered multiple medications to stimulate patient's bowel for OB stool collection. Patient was unable to have a bowel movement. Administered suppository per MD order. Charge nurse aware.
--- NOTE | 2020-03-30 19:00 | NUR ---
HAND-OFF: Report given to Branden Kim)MARLYS. Patient is stable.
--- NOTE | 2020-03-30 19:51 | NUR ---
NURSE NOTES: Received patient awake, alert, ambulatory, moved her bowel, collected stool and sent to laboratory for occult blood.
[2020-03-30 20:27] VITALS: BP 97/62
[2020-03-30] MEDS: Iron Sucrose 100 MG in NS 55 ML IV SCH (20:49)
[2020-03-30] MEDS: Levemir Flexpen SUBQ SCH (20:53)
[2020-03-31 00:05] VITALS: BP 115/78
--- NOTE | 2020-03-31 02:15 | Progress Note ---
DATE: 03/30/2020 INTERNAL MEDICINE PROGRESS NOTE SUBJECTIVE: No fevers. Blood pressure stable. CAT scan reviewed. Abdominal pain slightly better. OBJECTIVE: LUNGS: Clear. CARDIAC: Regular. No murmur. ABDOMEN: Soft. EXTREMITIES: No focal tenderness. EXTREMITIES: No edema. Stool occult blood pending. IMPRESSION: 1. Bacteremia. 2. Urinary tract infection. 3. Sepsis. 4. Hypothyroidism. 5. Subcutaneous mass in the right pelvic region of unclear significance. 6. Fibroids. 7. Iron deficiency with anemia. 8. Possible gastrointestinal bleed versus gynecologic bleeding. PLAN: 1. Await stool occult blood. 2. Thyroid replacement. 3. Antimicrobials. 4. Surgical evaluation. 5. Infectious Disease follow up. 6. Transfuse for hemoglobin less than 8 grams. 7. Continue iron replacement intravenously. Wade Rodríguez M.D. DR: THIERRY JOB#: [id number] CC:
[2020-03-31] MEDS: Piperacillin/Tazobactam 3.375 GM in NS 110 ML IVPB SCH ×3 (03:59→21:01)
[2020-03-31 04:00] VITALS: BP 131/76
[2020-03-31] MEDS: NovoLOG Insulin Flexpen SUBQ SCH ×4 (05:46→21:01)
--- NOTE | 2020-03-31 07:04 | NUR ---
HAND-OFF: Report given to MARLYS Chiu.
--- NOTE | 2020-03-31 07:20 | NUR ---
NURSE NOTES: Received report from MARLYS Otero (JoJo). Patient A&OX4, mostly Jordanian speaking. On room air, no signs of distress or labored breathing. IV intact, patent, and running IV antibiotics. Complaining of pain and nausea, will medicate according to MD orders. Bed in lowest position with call light in reach. Will continue with plan of care.
[2020-03-31 08:00] VITALS: BP 112/70
[2020-03-31] MEDS: Docusate 250mg cap ORAL SCH (08:16)
[2020-03-31] MEDS: Tylenol #3 tab (300mg/30mg) ORAL PRN ×2 (08:16→14:35)
--- NOTE | 2020-03-31 09:45 | Pulmonology Progress Note ---
Subjective Interval Events: Looking better; no further fevers Constitutional: Reports: no symptoms HEENT: Repors: no symptoms Respiratory: Reports: no symptoms Cardiovascular: Reports: no symptoms Gastrointestinal/Abdominal: Reports: no symptoms Allergies: Coded Allergies: No Known Allergies (Verified , 09/02/07) Objective Last 24 Hour Vital Signs Date Time Temp Pulse Resp B/P (MAP) Pulse Ox O2 Delivery O2 Flow Rate FiO2 03/31/20 08:00 97.9 79 18 112/70 (84) 100 03/31/20 04:00 97.4 78 18 131/76 (94) 99 03/31/20 00:05 98.7 68 18 115/78 (90) 98 03/30/20 20:27 97.5 72 18 97/62 (74) 99 03/30/20 20:08 Room Air 03/30/20 16:00 97.5 82 18 101/61 (74) 99 03/30/20 12:00 97.5 90 18 101/66 (78) 96 Intake and Output 03/30/20 03/31/20 19:00 07:00 Intake Total 1217.5 ml 702.5 ml Balance 1217.5 ml 702.5 ml Intake Oral 480 ml IV Total 737.5 ml 702.5 ml # Voids 3 2 General Appearance: no acute distress HEENT: normocephalic Respiratory: chest wall non-tender, lungs clear Cardiovascular: normal peripheral pulses Abdomen: normal bowel sounds Laboratory Tests 03/30/20 19:00: Stool Occult Blood Negative Current Medications Medications (Trade) Dose Ordered Sig/Alycia Route PRN Reason Start Time Stop Time Status Last Admin Dose Admin Acetaminophen (Tylenol) 650 mg Q4H PRN ORAL Mild Pain (Pain Scale 1-3)/fev 03/28/20 20:00 04/27/20 19:59 Acetaminophen/ Codeine Phosphate (Tylenol #3) 1 tab Q4H PRN ORAL Moderate Pain (Pain Scale 4-6) 03/28/20 18:15 04/04/20 18:14 03/31/20 08:16 Al Hydroxide/Mg Hydroxide (Mylanta) 30 ml Q6H PRN ORAL Abdominal cramps 03/28/20 23:00 04/26/20 22:59 03/30/20 17:42 Barium Sulfate (Readi-Cat 2) 450 ml NOW PRN ORAL Radiology Procedure 03/29/20 12:00 Bisacodyl (Dulcolax) 10 mg DAILYPRN PRN RECTAL Constipation 03/29/20 14:00 06/27/20 13:59 03/30/20 18:09 Dextrose (Dextrose 50%) 25 ml Q30M PRN IV Hypoglycemia 03/28/20 18:15 06/25/20 01:44 Dextrose (Dextrose 50%) 50 ml Q30M PRN IV Hypoglycemia 03/28/20 18:15 06/25/20 01:44 Diphenhydramine HCl (Benadryl) 25 mg Q6H PRN ORAL Itching 03/28/20 18:30 04/25/20 18:29 Docusate Sodium (Colace) 250 mg DAILY ORAL 03/29/20 14:00 04/28/20 13:59 03/31/20 08:16 Famotidine (Pepcid) 20 mg DAILY ORAL 03/29/20 09:00 06/25/20 08:59 03/31/20 08:16 Insulin Aspart (NovoLOG) BEFORE MEALS AND HS SUBQ 03/28/20 21:00 06/25/20 06:29 03/31/20 05:46 Insulin Detemir (Levemir) 10 units BEDTIME SUBQ 03/29/20 21:00 06/27/20 20:59 03/30/20 20:53 Iohexol (OMNIPAQUE-300 100ml) 100 ml NOW PRN INJ Radiology Procedure 03/29/20 12:00 Iron Sucrose 100 mg/Sodium Chloride 60 ml @ 240 mls/hr QHS IV 03/29/20 21:00 04/01/20 21:14 03/30/20 20:49 Levothyroxine Sodium (Synthroid) 150 mcg DAILY@0630 ORAL 03/29/20 06:30 04/27/20 06:29 03/31/20 05:44 Magnesium Hydroxide (Mom) 30 ml DAILYPRN PRN ORAL Constipation 03/29/20 14:00 04/28/20 13:59 03/30/20 15:29 Ondansetron HCl (Zofran) 4 mg Q6H PRN IVP Nausea & Vomiting 03/29/20 14:00 04/28/20 13:59 03/31/20 08:16 Piperacillin Sod/ Tazobactam Sod 3.375 gm/Sodium Chloride 110 ml @ 27.5 mls/hr EVERY 8 HOURS IVPB 03/28/20 22:00 04/02/20 21:59 03/31/20 03:59 Sodium Chloride 1,000 ml @ 100 mls/hr Q10H IV 03/29/20 13:48 04/28/20 13:47 03/30/20 18:25 Assessment/Plan Assessment/Plan IMPRESSION: 1. Urinary tract infection. 2. Anemia. 3. Fever. 4. Bacteremia DISCUSSION: Continue oxygen prn. Has negative COVID-19 PCR. Broad spectrum antibiotics. 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 Currently saturating well on RA WIll sign off Dia Garza Omar Syed MD Mar 31, 2020 09:45
[2020-03-31 12:00] VITALS: BP 100/67
--- NOTE | 2020-03-31 12:24 | NUR ---
CASE MANAGEMENT:REVIEW 03/31/20 SI: ANEMIA D/T UTERINE BLEEDING BACTEREMIA. UTI 97.9 79 18 112/70 100% ON RA IS: IV ZOSYN Q8HRS IV VENOFER QHS LOTENSIN PO QD SYNTHROID PO QD METFORMIN PO TID AC NOVOLOG SQ AC+HS LEVEMIR SQ QHS : MED/SURG STATUS 4EAST DCP: FROM HOME PLAN: STOOL OB ENEMA SURGICAL EVAL ID TO F/U
--- NOTE | 2020-03-31 15:31 | Infectious Diseases Prog Note ---
Assessment/Plan Assessment/Plan A: 1. Gram-negative sepsis, 2. E. coli urinary tract infection. 3. leukocytosis. 4. Anemia. 5. Diabetes. 6. Uterine fibroids 7. Cholelithiasis PLAN: 1. Continue Zosyn for now. 2. We will follow up cultures and adjust antibiotics accordingly. Subjective ROS Limited/Unobtainable: Yes Respiratory: Reports: no symptoms Cardiovascular: Reports: no symptoms Gastrointestinal/Abdominal: Reports: other - epigastric pain Genitourinary: Reports: no symptoms Allergies: Coded Allergies: No Known Allergies (Verified , 09/02/07) Objective Last 24 Hour Vital Signs Date Time Temp Pulse Resp B/P (MAP) Pulse Ox O2 Delivery O2 Flow Rate FiO2 03/31/20 12:00 98.2 82 19 100/67 (78) 97 03/31/20 09:00 Room Air 03/31/20 08:00 97.9 79 18 112/70 (84) 100 03/31/20 04:00 97.4 78 18 131/76 (94) 99 03/31/20 00:05 98.7 68 18 115/78 (90) 98 03/30/20 20:27 97.5 72 18 97/62 (74) 99 03/30/20 20:08 Room Air 03/30/20 16:00 97.5 82 18 101/61 (74) 99 Height (Feet): 4 Height (Inches): 11.00 Weight (Pounds): 112 General Appearance: no acute distress HEENT: mucous membranes moist Respiratory/Chest: lungs clear Cardiovascular: normal rate Abdomen: soft, non tender Extremities: no edema Neurologic/Psychiatric: alert, oriented x 3, responsive Laboratory Tests Test 03/30/20 19:00 Stool Occult Blood Negative (NEGATIVE) Current Medications Medications (Trade) Dose Ordered Sig/Alycia Route PRN Reason Start Time Stop Time Status Last Admin Dose Admin Acetaminophen (Tylenol) 650 mg Q4H PRN ORAL Mild Pain (Pain Scale 1-3)/fev 03/28/20 20:00 04/27/20 19:59 Acetaminophen/ Codeine Phosphate (Tylenol #3) 1 tab Q4H PRN ORAL Moderate Pain (Pain Scale 4-6) 03/28/20 18:15 04/04/20 18:14 03/31/20 14:35 Al Hydroxide/Mg Hydroxide (Mylanta) 30 ml Q6H PRN ORAL Abdominal cramps 03/28/20 23:00 04/26/20 22:59 03/30/20 17:42 Barium Sulfate (Readi-Cat 2) 450 ml NOW PRN ORAL Radiology Procedure 03/29/20 12:00 Bisacodyl (Dulcolax) 10 mg DAILYPRN PRN RECTAL Constipation 03/29/20 14:00 06/27/20 13:59 03/30/20 18:09 Dextrose (Dextrose 50%) 25 ml Q30M PRN IV Hypoglycemia 03/28/20 18:15 06/25/20 01:44 Dextrose (Dextrose 50%) 50 ml Q30M PRN IV Hypoglycemia 03/28/20 18:15 06/25/20 01:44 Diphenhydramine HCl (Benadryl) 25 mg Q6H PRN ORAL Itching 03/28/20 18:30 04/25/20 18:29 Docusate Sodium (Colace) 250 mg DAILY ORAL 03/29/20 14:00 04/28/20 13:59 03/31/20 08:16 Famotidine (Pepcid) 20 mg DAILY ORAL 03/29/20 09:00 06/25/20 08:59 03/31/20 08:16 Insulin Aspart (NovoLOG) BEFORE MEALS AND HS SUBQ 03/28/20 21:00 06/25/20 06:29 03/31/20 12:15 Insulin Detemir (Levemir) 10 units BEDTIME SUBQ 03/29/20 21:00 06/27/20 20:59 03/30/20 20:53 Iohexol (OMNIPAQUE-300 100ml) 100 ml NOW PRN INJ Radiology Procedure 03/29/20 12:00 Iron Sucrose 100 mg/Sodium Chloride 60 ml @ 240 mls/hr QHS IV 03/29/20 21:00 04/01/20 21:14 03/30/20 20:49 Levothyroxine Sodium (Synthroid) 150 mcg DAILY@0630 ORAL 03/29/20 06:30 04/27/20 06:29 03/31/20 05:44 Magnesium Hydroxide (Mom) 30 ml DAILYPRN PRN ORAL Constipation 03/29/20 14:00 04/28/20 13:59 03/30/20 15:29 Ondansetron HCl (Zofran) 4 mg Q6H PRN IVP Nausea & Vomiting 03/29/20 14:00 04/28/20 13:59 03/31/20 14:36 Piperacillin Sod/ Tazobactam Sod 3.375 gm/Sodium Chloride 110 ml @ 27.5 mls/hr EVERY 8 HOURS IVPB 03/28/20 22:00 04/02/20 21:59 03/31/20 14:35 Sodium Chloride 1,000 ml @ 100 mls/hr Q10H IV 03/29/20 13:48 04/28/20 13:47 03/30/20 18:25 Krishna Vasquez MD Mar 31, 2020 15:31
[2020-03-31 16:00] VITALS: BP 126/69
[2020-03-31] MEDS: Milk of Magnesia 30ml Ud ORAL PRN (17:45)
--- NOTE | 2020-03-31 19:08 | NUR ---
HAND-OFF: Report given to MARLYS Otero.
[2020-03-31 20:00] VITALS: BP 143/77
--- NOTE | 2020-03-31 20:00 | NUR ---
NURSE NOTES: Received patient awake, alert, ambulatory, resting in bed, comfortable.
[2020-03-31] MEDS: Iron Sucrose 100 MG in NS 55 ML IV SCH (20:30)
[2020-03-31] MEDS: Levemir Flexpen SUBQ SCH (21:00)
--- NOTE | 2020-03-31 21:58 | CDS Physician Query ---
Clarification is required for compliance, coding accuracy, and to reflect severity of illness for this patient Dear Dr. Rodríguez Date: 03/31/20 Repair Service Clerk/CDS Name: Prince Moreno Contact: Exercise your independent professional judgment when responding to query. Question asked do not imply a particular answer is desired/expected Clinical Documentation States: "Sepsis" documented in progress note on 03/31/20 "Gram-negative sepsis" documented in Infectious Disease consult on 03/31/20 Clinical Findings Show: General variables [X} Fever (temp >38.3 degrees C or 100.4 degrees F) [] Hypothermia (temp<36 degrees C or 96.0 degrees F) [X] Heart rate > 90/min [] Tachypnea/RR > 20 bpm [] pCO2 < 32 mmHg [] Altered mental status [] Significant edema or positive fluid balance (>20 ml/kg over 24h) [] Hyperglycemia ( Plasma >140 mg/dL or 7.7 mmol/L) in the abscence of diabetes Inflammatory variables [X] Leukocytosis (WBC count > 12,000 L1 [] Leukopenia (WBC count < 4000 L1) [] Normal WBC count with greater than 10% immature forms (Bandemia) Hemodynamic variables [X] Arterial hypotension (SBP < 90 mm Hg, MAP < 70 mm Hg, or an SBP decrease > 40 mm Hg in adults or less than two sd below normal for age) Organ dysfunction variables [] Arterial hypoxemia (Pao2/Fio2 < 300) [] Acute oliguria (urine output < 0.5 mL/kg/hr for at least 2 hrs despite adequate fluid resuscitation) [X] Creatinine increase > 0.5 mg/dL or 44.2 mol/L [] Coagulation abnormalities (INR > 1.5 or aPTT > 60 s) [] Ileus (absent bowel sounds) [] Thrombocytopenia (platelet count < 100,000 L1) [] Hyperbilirubinemia (plasma total bilirubin > 4 mg/dL or 70 mol/L) Tissue Perfusion Variables [] Hyperlactatemia (> 1 mmol/L) [] Decreased capillary refill or mottling Was SEPSIS present on admission? [x] Yes [] No [] Clinically undeterminable Physician signature Date Please also document in your Progress Notes and/or Discharge Summary and indicate if the condition was present on admission. VANCED
[2020-04-01 00:08] VITALS: BP 137/68
--- NOTE | 2020-04-01 01:18 | NUR ---
HAND-OFF: Report given to MARLYS Robbins.
--- NOTE | 2020-04-01 01:30 | NUR ---
NURSE NOTES: Patient in bed, awake and alert x4. No signs of distress. IV intact and running IVF as ordered. Bed locked and in lowest position. call light in easy reach. Will follow plan of care.
--- NOTE | 2020-04-01 02:14 | Progress Note ---
DATE: 03/31/2020 INTERNAL MEDICINE PROGRESS NOTE SUBJECTIVE: The patient remains afebrile. Still weak with some abdominal discomfort. Stool occult blood was negative. PHYSICAL EXAMINATION: VITAL SIGNS: Blood pressure 143/77, heart rate 76, respirations 18, oxygen saturations 97% to 99% on room air. Glucose parameters are elevated. LUNGS: Clear. CARDIAC: Regular. ABDOMEN: Soft. EXTREMITIES: No edema. IMPRESSION AND PLAN: 1. Improved. 2. We will continue antimicrobials. 3. Follow up cultures. 4. Continue thyroid replacement. 5. Monitor hemoglobin. 6. 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 7. Maximize anti-failure regimen. Wade Rodríguez M.D. DR: SHAHID JOB#: [id number] CC:
[2020-04-01 04:00] VITALS: BP 112/85
[2020-04-01] MEDS: Piperacillin/Tazobactam 3.375 GM in NS 110 ML IVPB SCH ×3 (05:41→22:02)
[2020-04-01] MEDS: NovoLOG Insulin Flexpen SUBQ SCH ×4 (05:49→21:00)
--- NOTE | 2020-04-01 07:43 | NUR ---
NURSE NOTES: MARLYS Gotti Addendum: 04/01/20 at 0744 by PATRICK ALONZO RN HAND-OFF: Report given to MARLYS Gotti.
[2020-04-01 08:00] VITALS: BP 142/82
--- NOTE | 2020-04-01 08:06 | NUR ---
NURSE NOTES: received report from MARLYS Olguin. patient in bed. a&Ox4, verbally responsive. no respiratory distress noted. no pain. mild nausea. no vomiting at this time. provided ice water for comfort. IV RAC running zosyn. intact. ambulatory. bed in the lowest position and locked. call light within reach. will continue to provide plan of care.
[2020-04-01 08:23] LABS: BASOPHILS % (AUTO) 0.4 % (0.0-2.0); EOSINOPHILS % (AUTO) 0.4 % (0.0-3.0); HEMATOCRIT 29.1 % (37.0-47.0); HEMOGLOBIN 8.8 G/DL (12.0-16.0); LYMPHOCYTES % (AUTO) 10.4 % (20.0-45.0); MEAN CORPUSCULAR VOLUME 83 FL (80-99); MONOCYTES % (AUTO) 4.7 % (1.0-10.0); NEUTROPHILS % (AUTO) 84.1 % (45.0-75.0); PLATELET COUNT 153 K/UL (150-450); RED BLOOD COUNT 3.48 M/UL (4.20-5.40); RED CELL DISTRIBUTION WIDTH 23.4 % (11.6-14.8); WHITE BLOOD COUNT 5.6 K/UL (4.8-10.8)
[2020-04-01] MEDS: Docusate 250mg cap ORAL SCH (08:28)
[2020-04-01 08:53] LABS: ALANINE AMINOTRANSFERASE < 6 U/L (12-78); ALBUMIN 2.5 G/DL (3.4-5.0); ALBUMIN/GLOBULIN RATIO 0.5 (1.0-2.7); ALKALINE PHOSPHATASE 101 U/L (46-116); ANION GAP 20 mmol/L (5-15); ASPARTATE AMINO TRANSFERASE 14 U/L (15-37); BILIRUBIN,TOTAL 0.4 MG/DL (0.2-1.0); BLOOD UREA NITROGEN 24 mg/dL (7-18); CARBON DIOXIDE 17 MMOL/L (21-32); CHLORIDE 105 MMOL/L (98-107); CREATININE 1.5 MG/DL (0.55-1.30); POTASSIUM 3.6 MMOL/L (3.5-5.1); SODIUM 142 MMOL/L (136-145)
[2020-04-01] MEDS: Tylenol #3 tab (300mg/30mg) ORAL PRN (09:45)
--- NOTE | 2020-04-01 10:23 | Pulmonology Progress Note ---
Subjective ROS Limited/Unobtainable: Yes Interval Events: Looking better; no further fevers Constitutional: Reports: no symptoms HEENT: Repors: no symptoms Respiratory: Reports: no symptoms Cardiovascular: Reports: no symptoms Gastrointestinal/Abdominal: Reports: other - epigastric pain Allergies: Coded Allergies: No Known Allergies (Verified , 09/02/07) Objective Last 24 Hour Vital Signs Date Time Temp Pulse Resp B/P (MAP) Pulse Ox O2 Delivery O2 Flow Rate FiO2 04/01/20 04:00 97.3 88 19 112/85 (94) 95 04/01/20 00:08 97.3 68 18 137/68 (91) 98 03/31/20 20:09 Room Air 03/31/20 20:00 97.8 76 18 143/77 (99) 99 03/31/20 16:00 97.9 80 18 126/69 (88) 97 03/31/20 12:00 98.2 82 19 100/67 (78) 97 Intake and Output 03/31/20 04/01/20 19:00 07:00 Intake Total 767.5 ml 800.0 ml Balance 767.5 ml 800.0 ml Intake Oral 240 ml 480 ml IV Total 527.5 ml 320.0 ml # Voids 3 General Appearance: no acute distress HEENT: normocephalic Respiratory: chest wall non-tender, lungs clear Cardiovascular: normal peripheral pulses Abdomen: normal bowel sounds Laboratory Tests 03/31/20 11:38: POC Whole Blood Glucose 388H 03/31/20 17:36: POC Whole Blood Glucose [Pending] 03/31/20 20:43: POC Whole Blood Glucose 240H 04/01/20 07:40: White Blood Count 5.6, Red Blood Count 3.48L, Hemoglobin 8.8L, Hematocrit 29.1L , Mean Corpuscular Volume 83, Mean Corpuscular Hemoglobin 25.2L, Mean Corpuscular Hemoglobin Concent 30.2L, Red Cell Distribution Width 23.4H, Platelet Count 153, Mean Platelet Volume 6.0L, Neutrophils (%) (Auto) 84.1H, Lymphocytes (%) (Auto) 10.4L, Monocytes (%) (Auto) 4.7, Eosinophils (%) (Auto) 0.4, Basophils (%) (Auto) 0.4, Sodium Level 142, Potassium Level 3.6, Chloride Level 105, Carbon Dioxide Level 17L, Anion Gap 20H, Blood Urea Nitrogen 24H, Creatinine 1.5H, Estimat Glomerular Filtration Rate 37.5, Glucose Level 393H, Calcium Level 8.0L, Magnesium Level 2.0, Total Bilirubin 0.4, Aspartate Amino Transf (AST/SGOT) 14L, Alanine Aminotransferase (ALT/SGPT) < 6L, Alkaline Phosphatase 101, Pro-B-Type Natriuretic Peptide 80822H, Total Protein 7.1, Albumin 2.5L, Globulin 4.6, Albumin/Globulin Ratio 0.5L Current Medications Medications (Trade) Dose Ordered Sig/Alycia Route PRN Reason Start Time Stop Time Status Last Admin Dose Admin Acetaminophen (Tylenol) 650 mg Q4H PRN ORAL Mild Pain (Pain Scale 1-3)/fev 03/28/20 20:00 04/27/20 19:59 Acetaminophen/ Codeine Phosphate (Tylenol #3) 1 tab Q4H PRN ORAL Moderate Pain (Pain Scale 4-6) 03/28/20 18:15 04/04/20 18:14 04/01/20 09:45 Al Hydroxide/Mg Hydroxide (Mylanta) 30 ml Q6H PRN ORAL Abdominal cramps 03/28/20 23:00 04/26/20 22:59 04/01/20 09:49 Barium Sulfate (Readi-Cat 2) 450 ml NOW PRN ORAL Radiology Procedure 03/29/20 12:00 Bisacodyl (Dulcolax) 10 mg DAILYPRN PRN RECTAL Constipation 03/29/20 14:00 06/27/20 13:59 04/01/20 09:46 Dextrose (Dextrose 50%) 25 ml Q30M PRN IV Hypoglycemia 03/28/20 18:15 06/25/20 01:44 Dextrose (Dextrose 50%) 50 ml Q30M PRN IV Hypoglycemia 03/28/20 18:15 06/25/20 01:44 Diphenhydramine HCl (Benadryl) 25 mg Q6H PRN ORAL Itching 03/28/20 18:30 04/25/20 18:29 Docusate Sodium (Colace) 250 mg DAILY ORAL 03/29/20 14:00 04/28/20 13:59 04/01/20 08:28 Famotidine (Pepcid) 20 mg DAILY ORAL 03/29/20 09:00 06/25/20 08:59 04/01/20 08:28 Insulin Aspart (NovoLOG) BEFORE MEALS AND HS SUBQ 03/28/20 21:00 06/25/20 06:29 04/01/20 05:49 Insulin Detemir (Levemir) 15 units BEDTIME SUBQ 03/31/20 21:00 06/29/20 20:59 03/31/20 21:00 Iohexol (OMNIPAQUE-300 100ml) 100 ml NOW PRN INJ Radiology Procedure 03/29/20 12:00 Iron Sucrose 100 mg/Sodium Chloride 60 ml @ 240 mls/hr QHS IV 03/29/20 21:00 04/01/20 21:14 03/31/20 20:30 Levothyroxine Sodium (Synthroid) 150 mcg DAILY@0630 ORAL 03/29/20 06:30 04/27/20 06:29 04/01/20 05:49 Magnesium Hydroxide (Mom) 30 ml DAILYPRN PRN ORAL Constipation 03/29/20 14:00 04/28/20 13:59 03/31/20 17:45 Ondansetron HCl (Zofran) 4 mg Q6H PRN IVP Nausea & Vomiting 03/29/20 14:00 04/28/20 13:59 04/01/20 08:28 Piperacillin Sod/ Tazobactam Sod 3.375 gm/Sodium Chloride 110 ml @ 27.5 mls/hr EVERY 8 HOURS IVPB 03/28/20 22:00 04/02/20 21:59 04/01/20 05:41 Sodium Chloride 1,000 ml @ 100 mls/hr Q10H IV 03/29/20 13:48 04/28/20 13:47 04/01/20 02:05 Assessment/Plan Assessment/Plan IMPRESSION: 1. Urinary tract infection. 2. Anemia. 3. Fever. 4. Bacteremia DISCUSSION: Continue oxygen prn. Has negative COVID-19 PCR. Broad spectrum antibiotics. 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 Currently saturating well on RA WIll sign off Nitesh Palmer M.D. Nitesh Palmer MD Apr 01, 2020 10:23
[2020-04-01] MEDS: Levemir Flexpen SUBQ SCH ×2 (11:00→21:06)
--- NOTE | 2020-04-01 11:00 | NUR ---
CHARGE NURSE NOTE: [place] BNP- [id number]. was called, (spoke with Eli)message left. Awaiting call back.
--- NOTE | 2020-04-01 11:27 | Infectious Diseases Prog Note ---
Assessment/Plan Assessment/Plan antibiotics : zosyn A 1. e.coli UTI 2. gram negative sepsis 3. leucocytosis resolved 4. diabetes mellitus 5. uterine fibroids P 1. continue zosyn 2. will follow up cultures Subjective Constitutional: Denies: fever, chills Respiratory: Denies: shortness of breath, dry cough Gastrointestinal/Abdominal: Denies: nausea, vomiting, diarrhea Musculoskeletal: Denies: pain Allergies: Coded Allergies: No Known Allergies (Verified , 09/02/07) Objective Last 24 Hour Vital Signs Date Time Temp Pulse Resp B/P (MAP) Pulse Ox O2 Delivery O2 Flow Rate FiO2 04/01/20 04:00 97.3 88 19 112/85 (94) 95 04/01/20 00:08 97.3 68 18 137/68 (91) 98 03/31/20 20:09 Room Air 03/31/20 20:00 97.8 76 18 143/77 (99) 99 03/31/20 16:00 97.9 80 18 126/69 (88) 97 03/31/20 12:00 98.2 82 19 100/67 (78) 97 Height (Feet): 4 Height (Inches): 11.00 Weight (Pounds): 112 Respiratory/Chest: lungs clear Cardiovascular: normal rate, regular rhythm, no gallop/murmur Abdomen: soft, non tender Extremities: no edema Laboratory Tests Test 03/31/20 11:38 03/31/20 17:36 03/31/20 20:43 04/01/20 07:40 POC Whole Blood Glucose 388 MG/DL (74-106) H Pending 240 MG/DL (74-106) H White Blood Count 5.6 K/UL (4.8-10.8) Red Blood Count 3.48 M/UL (4.20-5.40) L Hemoglobin 8.8 G/DL (12.0-16.0) L Hematocrit 29.1 % (37.0-47.0) L Mean Corpuscular Volume 83 FL (80-99) Mean Corpuscular Hemoglobin 25.2 PG (27.0-31.0) L Mean Corpuscular Hemoglobin Concent 30.2 G/DL (32.0-36.0) L Red Cell Distribution Width 23.4 % (11.6-14.8) H Platelet Count 153 K/UL (150-450) Mean Platelet Volume 6.0 FL (6.5-10.1) L Neutrophils (%) (Auto) 84.1 % (45.0-75.0) H Lymphocytes (%) (Auto) 10.4 % (20.0-45.0) L Monocytes (%) (Auto) 4.7 % (1.0-10.0) Eosinophils (%) (Auto) 0.4 % (0.0-3.0) Basophils (%) (Auto) 0.4 % (0.0-2.0) Sodium Level 142 MMOL/L (136-145) Potassium Level 3.6 MMOL/L (3.5-5.1) Chloride Level 105 MMOL/L (98-107) Carbon Dioxide Level 17 MMOL/L (21-32) L Anion Gap 20 mmol/L (5-15) H Blood Urea Nitrogen 24 mg/dL (7-18) H Creatinine 1.5 MG/DL (0.55-1.30) H Estimat Glomerular Filtration Rate 37.5 mL/min (>60) Glucose Level 393 MG/DL (74-106) H Calcium Level 8.0 MG/DL (8.5-10.1) L Magnesium Level 2.0 MG/DL (1.8-2.4) Total Bilirubin 0.4 MG/DL (0.2-1.0) Aspartate Amino Transf (AST/SGOT) 14 U/L (15-37) L Alanine Aminotransferase (ALT/SGPT) < 6 U/L (12-78) L Alkaline Phosphatase 101 U/L (46-116) Pro-B-Type Natriuretic Peptide 87381 pg/mL (0-125) H Total Protein 7.1 G/DL (6.4-8.2) Albumin 2.5 G/DL (3.4-5.0) L Globulin 4.6 g/dL Albumin/Globulin Ratio 0.5 (1.0-2.7) L Current Medications Medications (Trade) Dose Ordered Sig/Alycia Route PRN Reason Start Time Stop Time Status Last Admin Dose Admin Acetaminophen (Tylenol) 650 mg Q4H PRN ORAL Mild Pain (Pain Scale 1-3)/fev 03/28/20 20:00 04/27/20 19:59 Acetaminophen/ Codeine Phosphate (Tylenol #3) 1 tab Q4H PRN ORAL Moderate Pain (Pain Scale 4-6) 03/28/20 18:15 04/04/20 18:14 04/01/20 09:45 Al Hydroxide/Mg Hydroxide (Mylanta) 30 ml Q6H PRN ORAL Abdominal cramps 03/28/20 23:00 04/26/20 22:59 04/01/20 09:49 Barium Sulfate (Readi-Cat 2) 450 ml NOW PRN ORAL Radiology Procedure 03/29/20 12:00 Benazepril HCl (Lotensin) 20 mg DAILY ORAL 04/01/20 11:00 05/01/20 10:59 Bisacodyl (Dulcolax) 10 mg DAILYPRN PRN RECTAL Constipation 03/29/20 14:00 06/27/20 13:59 04/01/20 09:46 Dextrose (Dextrose 50%) 25 ml Q30M PRN IV Hypoglycemia 03/28/20 18:15 06/25/20 01:44 Dextrose (Dextrose 50%) 50 ml Q30M PRN IV Hypoglycemia 03/28/20 18:15 06/25/20 01:44 Diphenhydramine HCl (Benadryl) 25 mg Q6H PRN ORAL Itching 03/28/20 18:30 04/25/20 18:29 Docusate Sodium (Colace) 250 mg DAILY ORAL 03/29/20 14:00 04/28/20 13:59 04/01/20 08:28 Famotidine (Pepcid) 20 mg DAILY ORAL 03/29/20 09:00 06/25/20 08:59 04/01/20 08:28 Insulin Aspart (NovoLOG) BEFORE MEALS AND HS SUBQ 03/28/20 21:00 06/25/20 06:29 04/01/20 05:49 Insulin Detemir (Levemir) 10 units DAILY SUBQ 04/01/20 11:00 06/30/20 10:59 Insulin Detemir (Levemir) 15 units BEDTIME SUBQ 03/31/20 21:00 06/29/20 20:59 03/31/20 21:00 Iohexol (OMNIPAQUE-300 100ml) 100 ml NOW PRN INJ Radiology Procedure 03/29/20 12:00 Iron Sucrose 100 mg/Sodium Chloride 60 ml @ 240 mls/hr QHS IV 03/29/20 21:00 04/01/20 21:14 03/31/20 20:30 Levothyroxine Sodium (Synthroid) 150 mcg DAILY@0630 ORAL 03/29/20 06:30 04/27/20 06:29 04/01/20 05:49 Magnesium Hydroxide (Mom) 30 ml DAILYPRN PRN ORAL Constipation 03/29/20 14:00 04/28/20 13:59 03/31/20 17:45 Ondansetron HCl (Zofran) 4 mg Q6H PRN IVP Nausea & Vomiting 03/29/20 14:00 04/28/20 13:59 04/01/20 08:28 Piperacillin Sod/ Tazobactam Sod 3.375 gm/Sodium Chloride 110 ml @ 27.5 mls/hr EVERY 8 HOURS IVPB 03/28/20 22:00 04/02/20 21:59 04/01/20 05:41 Jonny White MD Apr 01, 2020 11:27
--- NOTE | 2020-04-01 11:47 | NUR ---
CASE MANAGEMENT:REVIEW 04/01/20 SI: GRAM NEGATIVE SEPSIS. E COLI UTI ANEMIA D/T UTERINE BLEEDING 98.2 82 19 142/82 97% ON RA H/H-8.8/29.1 BUN+20 CR+24 CR+1.5 GLUCOSE+393 IS: IV ZOSYN Q8HRS IV VENOFER QD & QHS LEVEMIR SQ QD LOTENSIN PO QD SS INSULIN AC+HS : MED/SURG STATUS 4 EAST DCP; PATIENT IS FROM HOME PLAN: CONTINUE ZOSYN F/U CULTURES
[2020-04-01] MEDS: Benazepril 10mg tab ORAL SCH (11:57)
[2020-04-01 12:00] VITALS: BP 148/80
--- NOTE | 2020-04-01 12:02 | NUR ---
DISCHARGE PLANNING DISCHARGE DISCUSSED WITH DR KELLOGG NOT READY FOR DISCHARGE TODAY D/T CONTINUED NEED FOR IV ANTIBIOTICS ONCE WE HAVE A DISCHARGE ORDER WE WILL ARRANGE OUTPATIENT FOLLOW UP AT A [facility] PATIENT WILL NEED PRESCRIPTIONS UPON DISCHARGE
--- NOTE | 2020-04-01 13:48 | Consultation ---
History of Present Illness General Date patient seen: Apr 01, 2020 Reason for Hospitalization: Back Pain-No Injury Present Illness HPI This is a 44-year-old female who presents with body pain that began 1 day prior to admission while she was sitting in the chair. She feels it both in her chest and also her upper back. She claims she has had pain like this before but is not certain what the diagnosis is. She is an insulin-dependent diabetic and states she has been taking her insulin recently. She denies change in her bowel habits. She feels some nausea but denies any vomiting. There is no productive cough at this time or sore throat. She does have some dysuria and says that she has had urinary tract infections in the past. She has some dyspnea on exertion. Also sometimes when she stands up she feels dizzy. She denies syncope recently. She reports the pain 10/10 throughout her body but mainly in her back. She reports the pain is being achy and constant. There is some increase with movement. On admission identified to have abdominal discomfort epigastric region and CT scan as below. Surgery called to evaluate and assist with care. Patient seen, patient evaluate, chart reviewed Allergies: Coded Allergies: No Known Allergies (Verified , 09/02/07) COVID-19 Screening Contact w/high risk pt: No Recent Travel to affected area: No Experienced COVID-19 symptoms?: No Medication History Scheduled Benazepril Hcl* (Benazepril Hcl*), 40 MG ORAL DAILY Ferrous Sulfate* (Ferrous Sulfate*), 325 MG ORAL TWICE A DAY Insulin Glargine (Lantus), 0 SUBQ BEDTIME, (Reported) Levothyroxine Sodium* (Levothyroxine Sodium*), 125 MCG ORAL DAILY@0630 Metformin Hcl* (Glucophage*), 500 MG ORAL BID Metoprolol Tartrate (Metoprolol Tartrate), 12.5 MG ORAL Q12HR Norgestimate-Ethinyl Estradiol (Ortho Tri-Cyclen), 1 EACH PO DAILY Miscellaneous Medications Insulin Aspart* (Novolog*), 0 SUBQ, (Reported) Patient History History Provided By: Patient, Medical Record, PMD Healthcare decision maker Resuscitation status Advanced Directive on File Past Medical/Surgical History Past Medical/Surgical History: (1) Acute MS (2) Hypoglycemia (3) Fibroid (4) UTI (urinary tract infection) (5) [id number] (6) dysfunctional uterine bleeding (7) uncontrolled diabetes (8) dysfunctional uterine bleeding (9) Hyperglycemia (10) [id number] (11) DKA (12) uncontrolled diabetes (13) Anemia (14) DKA (15) dysfunctional uterine bleeding (16) Hypokalemia (17) Vaginal bleeding (18) anemia (19) Hyperglycemia (20) Fibroid (21) Hyperglycemia (22) Fibroid (23) Vaginal bleeding (24) Anemia (25) Hypomagnesemia (26) Hypoglycemia (27) T2DM (type 2 diabetes mellitus) (28) Seizure (29) Hypoglycemia (30) Hypoglycemia (31) Hypoglycemia (32) Hypoglycemia (33) Diabetes mellitus out of control (34) Hypotension (35) Hypotension (36) Malnutrition (37) Malnutrition (38) UTI (lower urinary tract infection) (39) Abnormal liver enzymes (40) Abnormal liver enzymes (41) encephalopathy hypoglycemic (42) encephalopathy hypoglycemic (43) Sepsis (44) Sepsis (45) DM (diabetes mellitus) (46) Abdominal pain (47) Abdominal pain (48) Headache (49) Diabetes mellitus out of control (50) Symptomatic anemia (51) DUB (dysfunctional uterine bleeding) (52) UTI (lower urinary tract infection) (53) DM (diabetes mellitus) (54) Dysfunctional uterine bleeding (55) Acute on chronic systolic CHF (congestive heart failure) (56) Dehydration (57) Pleural effusion (58) Elevated troponin I level (59) Acute MS (60) Hypothyroidism (61) Iron deficiency (62) CHF (congestive heart failure) Review of Systems Review of Symptoms General ROS: no weight loss or fever Psychological ROS: no depression or mood changes, no memory loss Ophthalmic ROS: no visual changes or eye irritation ENT ROS: no nasal congestion, hearing loss, dizziness Allergy and Immunology ROS: no allergic symptoms or urticaria Hematological and Lymphatic ROS: no swollen glands, unusual bleeding or bruising Endocrine ROS: no polyuria, polydipsia, weight changes, temperature intolerance Respiratory ROS: no cough, shortness of breath, or wheezing Cardiovascular ROS: no chest pain or dyspnea on exertion Gastrointestinal ROS: ++ abdominal pain, no bright red blood in stool. Musculoskeletal ROS: no myalgias or arthralgias Neurological ROS: no TIA or stroke symptoms Dermatological ROS: no new or changing skin lesions, rashes or pruritis Physical Exam Physical Exam General appearance: alert, cooperative, no distress, appears stated age Head: Normocephalic, without obvious abnormality, atraumatic Eyes: conjunctivae/corneas clear. PERRL, EOM's intact. Fundi benign Throat: Lips, mucosa, and tongue normal. Teeth and gums normal Neck: supple, symmetrical, trachea midline, no adenopathy, thyroid: not enlarged, symmetric, no tenderness/mass/nodules, no carotid bruit and no JVD Lungs: clear to auscultation bilaterally Heart: regular rate and rhythm, S1, S2 normal, no murmur, click, rub or gallop Abdomen: soft, non-tender. Discomfort in the epigastric region bowel sounds normal. No masses, no organomegaly palpable superficial periumbilical nodule likely lipoma or prior fat necrosis from anti-coagulation Extremities: extremities normal, atraumatic, no cyanosis or edema Pulses: 2+ and symmetric Skin: Skin color, texture, turgor normal. No rashes or lesions Neurologic: Grossly normal Last 24 Hour Vital Signs Date Time Temp Pulse Resp B/P (MAP) Pulse Ox O2 Delivery O2 Flow Rate FiO2 04/01/20 12:00 97.7 83 19 148/80 (102) 99 04/01/20 11:57 142/82 04/01/20 09:00 Room Air 04/01/20 08:00 98.2 82 19 142/82 (102) 97 04/01/20 04:00 97.3 88 19 112/85 (94) 95 04/01/20 00:08 97.3 68 18 137/68 (91) 98 03/31/20 20:09 Room Air 03/31/20 20:00 97.8 76 18 143/77 (99) 99 03/31/20 16:00 97.9 80 18 126/69 (88) 97 Intake and Output 03/31/20 04/01/20 19:00 07:00 Intake Total 767.5 ml 800.0 ml Balance 767.5 ml 800.0 ml Intake Oral 240 ml 480 ml IV Total 527.5 ml 320.0 ml # Voids 3 Laboratory Tests Test 03/31/20 17:36 03/31/20 20:43 04/01/20 07:40 04/01/20 11:56 POC Whole Blood Glucose Pending 240 MG/DL (74-106) H 253 MG/DL (74-106) H White Blood Count 5.6 K/UL (4.8-10.8) Red Blood Count 3.48 M/UL (4.20-5.40) L Hemoglobin 8.8 G/DL (12.0-16.0) L Hematocrit 29.1 % (37.0-47.0) L Mean Corpuscular Volume 83 FL (80-99) Mean Corpuscular Hemoglobin 25.2 PG (27.0-31.0) L Mean Corpuscular Hemoglobin Concent 30.2 G/DL (32.0-36.0) L Red Cell Distribution Width 23.4 % (11.6-14.8) H Platelet Count 153 K/UL (150-450) Mean Platelet Volume 6.0 FL (6.5-10.1) L Neutrophils (%) (Auto) 84.1 % (45.0-75.0) H Lymphocytes (%) (Auto) 10.4 % (20.0-45.0) L Monocytes (%) (Auto) 4.7 % (1.0-10.0) Eosinophils (%) (Auto) 0.4 % (0.0-3.0) Basophils (%) (Auto) 0.4 % (0.0-2.0) Sodium Level 142 MMOL/L (136-145) Potassium Level 3.6 MMOL/L (3.5-5.1) Chloride Level 105 MMOL/L (98-107) Carbon Dioxide Level 17 MMOL/L (21-32) L Anion Gap 20 mmol/L (5-15) H Blood Urea Nitrogen 24 mg/dL (7-18) H Creatinine 1.5 MG/DL (0.55-1.30) H Estimat Glomerular Filtration Rate 37.5 mL/min (>60) Glucose Level 393 MG/DL (74-106) H Calcium Level 8.0 MG/DL (8.5-10.1) L Magnesium Level 2.0 MG/DL (1.8-2.4) Total Bilirubin 0.4 MG/DL (0.2-1.0) Aspartate Amino Transf (AST/SGOT) 14 U/L (15-37) L Alanine Aminotransferase (ALT/SGPT) < 6 U/L (12-78) L Alkaline Phosphatase 101 U/L (46-116) Pro-B-Type Natriuretic Peptide 82620 pg/mL (0-125) H Total Protein 7.1 G/DL (6.4-8.2) Albumin 2.5 G/DL (3.4-5.0) L Globulin 4.6 g/dL Albumin/Globulin Ratio 0.5 (1.0-2.7) L Height (Feet): 4 Height (Inches): 11.00 Weight (Pounds): 112 Medications Current Medications Medications (Trade) Dose Ordered Sig/Alycia Route PRN Reason Start Time Stop Time Status Last Admin Dose Admin Acetaminophen (Tylenol) 650 mg Q4H PRN ORAL Mild Pain (Pain Scale 1-3)/fev 03/28/20 20:00 04/27/20 19:59 Acetaminophen/ Codeine Phosphate (Tylenol #3) 1 tab Q4H PRN ORAL Moderate Pain (Pain Scale 4-6) 03/28/20 18:15 04/04/20 18:14 04/01/20 09:45 Al Hydroxide/Mg Hydroxide (Mylanta) 30 ml Q6H PRN ORAL Abdominal cramps 03/28/20 23:00 04/26/20 22:59 04/01/20 09:49 Barium Sulfate (Readi-Cat 2) 450 ml NOW PRN ORAL Radiology Procedure 03/29/20 12:00 Benazepril HCl (Lotensin) 20 mg DAILY ORAL 04/01/20 11:00 05/01/20 10:59 04/01/20 11:57 Bisacodyl (Dulcolax) 10 mg DAILYPRN PRN RECTAL Constipation 03/29/20 14:00 06/27/20 13:59 04/01/20 09:46 Dextrose (Dextrose 50%) 25 ml Q30M PRN IV Hypoglycemia 03/28/20 18:15 06/25/20 01:44 Dextrose (Dextrose 50%) 50 ml Q30M PRN IV Hypoglycemia 03/28/20 18:15 06/25/20 01:44 Diphenhydramine HCl (Benadryl) 25 mg Q6H PRN ORAL Itching 03/28/20 18:30 04/25/20 18:29 Docusate Sodium (Colace) 250 mg DAILY ORAL 03/29/20 14:00 04/28/20 13:59 04/01/20 08:28 Famotidine (Pepcid) 20 mg DAILY ORAL 03/29/20 09:00 06/25/20 08:59 04/01/20 08:28 Insulin Aspart (NovoLOG) BEFORE MEALS AND HS SUBQ 03/28/20 21:00 06/25/20 06:29 04/01/20 11:58 Insulin Detemir (Levemir) 10 units DAILY SUBQ 04/01/20 11:00 06/30/20 10:59 04/01/20 11:00 Insulin Detemir (Levemir) 15 units BEDTIME SUBQ 03/31/20 21:00 06/29/20 20:59 03/31/20 21:00 Iohexol (OMNIPAQUE-300 100ml) 100 ml NOW PRN INJ Radiology Procedure 03/29/20 12:00 Iron Sucrose 100 mg/Sodium Chloride 60 ml @ 240 mls/hr QHS IV 03/29/20 21:00 04/01/20 21:14 03/31/20 20:30 Levothyroxine Sodium (Synthroid) 150 mcg DAILY@0630 ORAL 03/29/20 06:30 04/27/20 06:29 04/01/20 05:49 Magnesium Hydroxide (Mom) 30 ml DAILYPRN PRN ORAL Constipation 03/29/20 14:00 04/28/20 13:59 03/31/20 17:45 Ondansetron HCl (Zofran) 4 mg Q6H PRN IVP Nausea & Vomiting 03/29/20 14:00 04/28/20 13:59 04/01/20 08:28 Piperacillin Sod/ Tazobactam Sod 3.375 gm/Sodium Chloride 110 ml @ 27.5 mls/hr EVERY 8 HOURS IVPB 03/28/20 22:00 04/06/20 21:59 04/01/20 05:41 Assessment/Plan Problem List: (1) Acute MS ICD Codes: I21.9 - Acute myocardial infarction, unspecified SNOMED: 22624081 (2) Hypoglycemia (3) Fibroid (4) UTI (urinary tract infection) (5) [id number] (6) dysfunctional uterine bleeding (7) uncontrolled diabetes (8) dysfunctional uterine bleeding (9) Hyperglycemia (10) 48278 (11) DKA (12) uncontrolled diabetes (13) Anemia (14) DKA (15) dysfunctional uterine bleeding (16) Hypokalemia ICD Codes: E87.6 - Hypokalemia SNOMED: 73669465 (17) Vaginal bleeding (18) anemia (19) Hyperglycemia ICD Codes: R73.9 - Hyperglycemia, unspecified SNOMED: 30395073 (20) Fibroid ICD Codes: D25.9 - Leiomyoma of uterus, unspecified SNOMED: 39703073 (21) Hyperglycemia ICD Codes: R73.9 - Hyperglycemia, unspecified SNOMED: 66766106 (22) Fibroid ICD Codes: D25.9 - Leiomyoma of uterus, unspecified SNOMED: 17673629 (23) Vaginal bleeding ICD Codes: N89.8 - Other specified noninflammatory disorders of vagina SNOMED: 892840237 (24) Anemia ICD Codes: D64.9 - Anemia, unspecified SNOMED: 417566192 Qualifiers: Qualified Codes: D50.0 - Iron deficiency anemia secondary to blood loss ( chronic) (25) Hypomagnesemia ICD Codes: E83.42 - Hypomagnesemia SNOMED: 490584797 (26) Hypoglycemia (27) T2DM (type 2 diabetes mellitus) ICD Codes: E11.9 - T2DM (type 2 diabetes mellitus) SNOMED: 56640407 (28) Seizure ICD Codes: R56.9 - Seizure SNOMED: 74358897 (29) Hypoglycemia ICD Codes: E16.2 - Hypoglycemia, unspecified SNOMED: 935315360 (30) Hypoglycemia ICD Codes: E16.2 - Hypoglycemia, unspecified SNOMED: 825254495 (31) Hypoglycemia ICD Codes: E16.2 - Hypoglycemia, unspecified SNOMED: 278562008 (32) Hypoglycemia ICD Codes: E16.2 - Hypoglycemia, unspecified SNOMED: 699252078 (33) Diabetes mellitus out of control ICD Codes: E11.65 - Diabetes mellitus out of control SNOMED: 668657120 (34) Hypotension ICD Codes: I95.9 - Hypotension SNOMED: 46310248 (35) Hypotension ICD Codes: I95.9 - Hypotension SNOMED: 59692236 (36) Malnutrition ICD Codes: E46 - Malnutrition SNOMED: 9319725 (37) Malnutrition ICD Codes: E46 - Malnutrition SNOMED: 7208725 (38) UTI (lower urinary tract infection) ICD Codes: N39.0 - UTI (lower urinary tract infection) SNOMED: 0837556 (39) Abnormal liver enzymes ICD Codes: R74.8 - Abnormal liver enzymes SNOMED: 197954942 (40) Abnormal liver enzymes ICD Codes: R74.8 - Abnormal liver enzymes SNOMED: 883637867 (41) encephalopathy hypoglycemic (42) encephalopathy hypoglycemic (43) Sepsis ICD Codes: A41.9 - Sepsis SNOMED: 97363298 (44) Sepsis ICD Codes: A41.9 - Sepsis SNOMED: 94593275 (45) DM (diabetes mellitus) ICD Codes: E11.9 - DM (diabetes mellitus) SNOMED: 32004786 (46) Abdominal pain ICD Codes: R10.9 - Abdominal pain SNOMED: 88148385 (47) Abdominal pain Assessment & Plan: 44-year-old female with epigastric abdominal pain nausea vomiting. CT reviewed. Subcutaneous nodule likely a lipoma or prior fat necrosis from anticoagulation seemingly fairly benign superficial. Her abdominal pain is not consistent with cholecystitis and CT was reviewed no gallbladder pathology identified currently. Potentially gastritis. Pending GI input. Okay for diet from surgical standpoint. Rx as needed for nausea and vomiting. Will follow with recommendations. No acute surgical intervention planned at this time. Liver: Mild periportal edema, similar in appearance to October 10, 2017. Gallbladder and bile ducts: The gallbladder is distended. Minimal cholelithiasis. No ductal dilation. Pancreas: Unremarkable. No mass. No ductal dilation. Spleen: Unremarkable. No splenomegaly. Adrenals: Unremarkable. No mass. Kidneys and ureters: Unremarkable. No solid mass. No hydronephrosis. Stomach and bowel: Unremarkable. No obstruction. No mucosal thickening. PELVIS: Appendix: No findings to suggest acute appendicitis. Bladder: Unremarkable. No mass. Reproductive: Fibroid in the lower uterine segment, measuring 2.9 x 2. 6 cm which may be further evaluated with pelvic ultrasound if symptomatic. This appears more well circumscribed and hyperdense when compared to October 10, 2017. ABDOMEN and PELVIS: Intraperitoneal space: Unremarkable. No free air. No significant fluid collection. Bones/joints: No acute fracture. No dislocation. Soft tissues: Mild subcutaneous nodular density anterior to the right pelvis, located 6.1 cm inferior to the umbilicus and 4.5 cm to the right of midline, measuring 1.9 x 1.4 cm. This is nonspecific and should be correlated with physical exam. Vasculature: Unremarkable. No abdominal aortic aneurysm. Lymph nodes: Unremarkable. No enlarged lymph nodes. IMPRESSION: Interval improvement of the previously described bilateral moderate pleural effusions on CT October 10, 2017. Now, small left and trace right pleural effusions remain. Mild left base atelectasis. Fibroid in the lower uterine segment, measuring 2.9 x 2.6 cm which may be further evaluated with pelvic ultrasound if symptomatic. This appears more well circumscribed and hyperdense when compared to October 10, 2017. No small bowel obstruction or acute diverticulitis. Normal appendix. Cholelithiasis without gallbladder wall thickening, unchanged. Mild periportal edema, unchanged. Mild subcutaneous nodular density anterior to the right pelvis, located 6. 1 cm inferior to the umbilicus and 4.5 cm to the right of midline, measuring 1.9 x 1.4 cm. This is nonspecific and should be correlated with physical exam. ICD Codes: R10.9 - Abdominal pain SNOMED: 70923595 (48) Headache ICD Codes: R51 - Headache SNOMED: 42652476 (49) Diabetes mellitus out of control ICD Codes: E11.65 - Diabetes mellitus out of control SNOMED: 674693626 (50) Symptomatic anemia ICD Codes: D64.9 - Anemia, unspecified SNOMED: 112854863 (51) DUB (dysfunctional uterine bleeding) ICD Codes: N93.8 - Other specified abnormal uterine and vaginal bleeding SNOMED: 87498426 (52) UTI (lower urinary tract infection) ICD Codes: N39.0 - UTI (lower urinary tract infection) SNOMED: 6475786 (53) DM (diabetes mellitus) ICD Codes: E11.9 - DM (diabetes mellitus) SNOMED: 33636826 (54) Dysfunctional uterine bleeding ICD Codes: N93.8 - Other specified abnormal uterine and vaginal bleeding SNOMED: 69741019 (55) Acute on chronic systolic CHF (congestive heart failure) ICD Codes: I50.23 - Acute on chronic systolic (congestive) heart failure SNOMED: 437688999, 601286060 (56) Dehydration ICD Codes: E86.0 - Dehydration SNOMED: 16160950 (57) Pleural effusion ICD Codes: J90 - Pleural effusion, not elsewhere classified SNOMED: 94902854 (58) Elevated troponin I level ICD Codes: R74.8 - Abnormal levels of other serum enzymes SNOMED: 941448941 (59) Acute MS ICD Codes: I21.9 - Acute myocardial infarction, unspecified SNOMED: 30323219 (60) Hypothyroidism ICD Codes: E03.9 - Hypothyroidism, unspecified SNOMED: 90992451 Qualifiers: Qualified Codes: E03.9 - Hypothyroidism, unspecified (61) Iron deficiency ICD Codes: E61.1 - Iron deficiency SNOMED: 98489247 (62) CHF (congestive heart failure) ICD Codes: I50.9 - Heart failure, unspecified SNOMED: 81814263 Miko Thomas Apr 01, 2020 13:48
[2020-04-01 16:00] VITALS: BP 141/80
--- NOTE | 2020-04-01 16:05 | NUR ---
CHARGE NURSE NOTE: Spoke with regarding elevated pro Bnp. No new orders given.
[2020-04-01] MEDS: Milk of Magnesia 30ml Ud ORAL PRN (17:43)
--- NOTE | 2020-04-01 18:04 | Diagnostic Imaging Report ---
Indication: Abdominal pain, nausea, abnormal liver function tests Technique: Golden-scale and duplex images of the upper abdomen were obtained Comparison: 10/10/2017. Reference also made to abdomen pelvis CT 03/30/2020 Findings: Gallbladder demonstrates gallstones and sludge. No gallbladder wall thickening. Sonographic Greer's sign is negative. Common bile duct measures 5 mm in diameter. No intrahepatic biliary ductal dilatation. Liver demonstrates normal echogenicity, no focal abnormality. There is trace pericholecystic fluid, probably free intraperitoneal fluid. Previously reported abnormal hepatic echogenicity is not appreciated currently Portal vein and hepatic veins are patent. Pancreas is unremarkable. Spleen is unremarkable. Left kidney measures 9.6 cm in length. Right kidney measures 11.2 cm length. Both kidneys demonstrate normal echogenicity. There is no hydronephrosis. No focal abnormality . Non-aneurysmal abdominal aorta . Impression: Cholelithiasis and gallbladder sludge, also previously reported. Negative for secondary signs of cholecystitis Negative for dilated bile ducts Trace free intraperitoneal fluid Previously reported hepatic steatosis is no longer evident
--- NOTE | 2020-04-01 19:08 | NUR ---
NURSE NOTES: patient was seen by JAY Person
--- NOTE | 2020-04-01 19:10 | NUR ---
HAND-OFF: Report given to MARLYS Jasso.
--- NOTE | 2020-04-01 19:11 | NUR ---
NURSE NOTES: Received report from Carlos FRANKEL, The resident is alert and oriented x4 and was verbally responsive in Romansh only. She was reported to have multiple n/v .Generally weak with resp even and unlabored and the bilateral lung sounds are all clear on auscultation. She is currently running antibiotics well tolerated. will continue to monitor.
--- NOTE | 2020-04-01 19:27 | NUR ---
HAND-OFF: Report given to MARLYS Lopez.
[2020-04-01 20:00] VITALS: BP 151/78
[2020-04-01] MEDS: Iron Sucrose 100 MG in NS 55 ML IV SCH (21:04)
--- NOTE | 2020-04-01 22:58 | General Progress Note ---
Assessment/Plan Assessment/Plan: GI CONSULTATION Assessment - Anemia, OB (-) stools - hypothyroid - UTI - GNR sepsis - DM Recommendations - BID PPI - QID reglan - follow labs Subjective Allergies: Coded Allergies: No Known Allergies (Verified , 09/02/07) Objective Last 24 Hour Vital Signs Date Time Temp Pulse Resp B/P (MAP) Pulse Ox O2 Delivery O2 Flow Rate FiO2 04/01/20 21:00 Room Air 04/01/20 20:00 98.1 84 20 151/78 (102) 96 04/01/20 16:00 97.7 75 20 141/80 (100) 97 04/01/20 12:00 97.7 83 19 148/80 (102) 99 04/01/20 11:57 142/82 04/01/20 09:00 Room Air 04/01/20 08:00 98.2 82 19 142/82 (102) 97 04/01/20 04:00 97.3 88 19 112/85 (94) 95 04/01/20 00:08 97.3 68 18 137/68 (91) 98 Intake and Output 03/31/20 04/01/20 19:00 07:00 Intake Total 767.5 ml 827.5 ml Balance 767.5 ml 827.5 ml Intake Oral 240 ml 480 ml IV Total 527.5 ml 347.5 ml # Voids 3 Laboratory Tests 04/01/20 07:40: White Blood Count 5.6, Red Blood Count 3.48L, Hemoglobin 8.8L, Hematocrit 29.1L , Mean Corpuscular Volume 83, Mean Corpuscular Hemoglobin 25.2L, Mean Corpuscular Hemoglobin Concent 30.2L, Red Cell Distribution Width 23.4H, Platelet Count 153, Mean Platelet Volume 6.0L, Neutrophils (%) (Auto) 84.1H, Lymphocytes (%) (Auto) 10.4L, Monocytes (%) (Auto) 4.7, Eosinophils (%) (Auto) 0.4, Basophils (%) (Auto) 0.4, Sodium Level 142, Potassium Level 3.6, Chloride Level 105, Carbon Dioxide Level 17L, Anion Gap 20H, Blood Urea Nitrogen 24H, Creatinine 1.5H, Estimat Glomerular Filtration Rate 37.5, Glucose Level 393H, Calcium Level 8.0L, Magnesium Level 2.0, Total Bilirubin 0.4, Aspartate Amino Transf (AST/SGOT) 14L, Alanine Aminotransferase (ALT/SGPT) < 6L, Alkaline Phosphatase 101, Pro-B-Type Natriuretic Peptide [id number], Total Protein 7.1, Albumin 2.5L, Globulin 4.6, Albumin/Globulin Ratio 0.5L 04/01/20 11:56: POC Whole Blood Glucose 253H Height (Feet): 4 Height (Inches): 11.00 Weight (Pounds): 112 Brooklynn Lucas MD Apr 01, 2020 22:58
[2020-04-01] MEDS: Metoclopramide 10mg/2ml Inj IVP SCH (23:10)
[2020-04-01] MEDS: Pantoprazole Inj IVP SCH (23:11)
[2020-04-02] VITALS: BP 146/79
--- NOTE | 2020-04-02 00:14 | Progress Note ---
DATE: 04/01/2020 SUBJECTIVE: Blood pressure parameters slightly increased today. Patient's benazepril was added last night. Diuresis was given as well. Intakes and outputs are not accurate. Patient continues to complain of mid epigastric discomfort and nausea. PHYSICAL EXAMINATION: LUNGS: Diminished breath sounds. HEART: Regular rhythm and rate. Normal S1, S2. ABDOMEN: Slightly tender in the mid epigastric region. EXTREMITIES: No edema . LABORATORY DATA: BUN 24, creatinine 1.5, glucose 253. Pro-natriuretic peptide 14,000. White count 5.6, hemoglobin 8.8. Abdominal ultrasound reveals cholelithiasis and gallbladder sludge, no signs of cholecystitis. IMPRESSION: 1. Hypothyroidism. 2. Gynecologic bleeding. 3. Dyspepsia and possible gastritis. 4. Bacteremia. 5. Urinary tract infection. 6. Cardiomyopathy. 7. Acute on chronic systolic and diastolic congestive heart failure. PLAN: 1. Maximize antifailure therapy. 2. GI consultation. 3. Titrate insulin regimen. 4. Antimicrobials per infectious disease qa consultant. 5. Discharge planning once all consultants agree with plan and patient is able to tolerate oral intake. Wade Rodríguez M.D. DR: FEDERICO JOB#: [id number] CC:
--- NOTE | 2020-04-02 01:14 | Consultation ---
DATE OF CONSULTATION: 04/01/2020 GASTROENTEROLOGY CONSULTATION CONSULTING PHYSICIAN: Brooklynn Lucas MD. CHIEF COMPLAINT: I was asked to see this patient by Dr. Wade Rodríguez for evaluation of gastrointestinal symptoms. HISTORY OF PRESENT ILLNESS: Patient is a 44-year-old woman with a history of dysfunctional uterine bleeding who comes in due to very severe anemia and patient with some shortness of breath. Patient does not have any gastrointestinal bleeding or rectal bleeding. She does however have some nausea and vomiting today. She was previously seen about a year ago for similar condition where she had dysfunctional bleeding and severe anemia. Now, she also complains of 8-day history of abdominal pain and 5 days of nausea and vomiting. She denies diarrhea. She has not had an endoscopy or colonoscopy in the past. ALLERGIES: None. FAMILY HISTORY: Noncontributory. PAST MEDICAL HISTORY: Remarkable for dysfunctional uterine bleeding. SOCIAL HISTORY: Patient does not smoke or drink alcohol. REVIEW OF SYSTEMS: Otherwise negative. PHYSICAL EXAMINATION: GENERAL: Thin, woman, seen in her room. HEENT: Normocephalic and atraumatic. Sclerae are anicteric. Oropharynx clear. NECK: Supple. CHEST: Clear to auscultation. CARDIOVASCULAR: Revealed a regular rate. ABDOMEN: Soft and mildly tender diffusely, but more so on the left side. EXTREMITIES: Revealed no edema. LABORATORY DATA: Noted. ASSESSMENT: This patient presents with severe anemia, which is recurrent for this patient and presumably due to dysfunctional uterine bleeding and she has been negative in the stools. She does have some nausea and vomiting. This may be due to gastroenteritis. She has already been tested and ruled out for COVID. She also has bacteremia, which is being treated separately. She should be checked for Clostridium difficile and other organisms should her symptoms persist. In the meantime, I would also add Reglan around the clock and twice daily proton pump inhibitor for symptomatic control. RECOMMENDATIONS: Per above discussion and per orders written in the chart. Thank you for asking me to participate in the care of this patient. Brooklynn Lucas M.D. DR: GILDARDO JOB#: [id number] CC: PEPE
[2020-04-02 04:00] VITALS: BP 139/78
--- NOTE | 2020-04-02 04:38 | NUR ---
NURSE NOTES: The patient has minimal episodes of N/V, She remained weak and has poor po intake. She was able to ambulate to the restroom to urinate.The Resp is even and unlabored. will continue to monitor
[2020-04-02] MEDS: Metoclopramide 10mg/2ml Inj IVP SCH ×4 (05:14→23:12)
[2020-04-02] MEDS: Piperacillin/Tazobactam 3.375 GM in NS 110 ML IVPB SCH (05:16)
[2020-04-02 05:56] LABS: BASOPHILS % (AUTO) 0.5 % (0.0-2.0); EOSINOPHILS % (AUTO) 0.8 % (0.0-3.0); HEMATOCRIT 30.7 % (37.0-47.0); HEMOGLOBIN 9.3 G/DL (12.0-16.0); LYMPHOCYTES % (AUTO) 16.1 % (20.0-45.0); MEAN CORPUSCULAR VOLUME 80 FL (80-99); MONOCYTES % (AUTO) 12.4 % (1.0-10.0); NEUTROPHILS % (AUTO) 70.3 % (45.0-75.0); PLATELET COUNT 207 K/UL (150-450); RED BLOOD COUNT 3.84 M/UL (4.20-5.40); RED CELL DISTRIBUTION WIDTH 22.8 % (11.6-14.8); WHITE BLOOD COUNT 5.1 K/UL (4.8-10.8)
[2020-04-02 06:08] LABS: ANION GAP 12 mmol/L (5-15); BLOOD UREA NITROGEN 14 mg/dL (7-18); CARBON DIOXIDE 29 MMOL/L (21-32); CHLORIDE 107 MMOL/L (98-107); CREATININE 1.2 MG/DL (0.55-1.30); POTASSIUM 3.2 MMOL/L (3.5-5.1); SODIUM 148 MMOL/L (136-145)
[2020-04-02] MEDS: NovoLOG Insulin Flexpen SUBQ SCH ×4 (06:30→21:36)
--- NOTE | 2020-04-02 07:10 | NUR ---
HAND-OFF: Report given to Tyae/Sera RN'S.
[2020-04-02 08:00] VITALS: BP 148/82
--- NOTE | 2020-04-02 08:23 | NUR ---
NURSE NOTES: potassium 3.2 today. Notified and received order IV K 10meq/100ml x 3bags. order noted and carried out.
[2020-04-02] MEDS ORDERED: Sodium Chloride for KCL Premix X 3hrs IV SCH (08:30)
[2020-04-02] MEDS: Benazepril 10mg tab ORAL SCH (09:05)
[2020-04-02] MEDS: Pantoprazole Inj IVP SCH ×2 (09:05→20:14)
[2020-04-02] MEDS: Docusate 250mg cap ORAL SCH (09:05)
[2020-04-02] MEDS: Levemir Flexpen SUBQ SCH ×3 (09:09→20:20)
--- NOTE | 2020-04-02 09:27 | NUR ---
RD ASSESSMENT & RECOMMENDATIONS SEE CARE ACTIVITY FOR COMPLETE ASSESSMENT DAILY ESTIMATED NEEDS: Needs based on Diabetes, cardiac, 48.6kg 25-30 kcals/kg 6464-2509 total kcals 1-1.5 g protein/kg 49-73 g total protein Fluid per MD, pt w/ CHF NUTRITION DIAGNOSIS: 1) Altered nutrition related lab values r/t diabetes and anemia as evidenced by variable BG (146-393), Hgb critically low on adm (4.9->9.3), now w/elev BNP (44684) CURRENT DIET: CCHO LOW/ LOW NA PO DIET RECOMMENDATIONS: CCHO LOW + SNACKS TID ADDITIONAL RECOMMENDATIONS: 1) Standing weight and height for eval (stated 5'1"and 107# bedscale wt, c/w prior bed scale wt) 2) Monitor for hypoglycemia, rec to add snacks in b/w meals 3) Glucerna BID w/ continued fair po intake
--- NOTE | 2020-04-02 10:20 | Surgery Progress Note ---
Surgery Progress Note Subjective Additional Comments no acute events comfortable stable US noted pain improved n/v improved Objective Last 24 Hour Vital Signs Date Time Temp Pulse Resp B/P (MAP) Pulse Ox O2 Delivery O2 Flow Rate FiO2 04/02/20 09:05 148/82 04/02/20 08:00 98.1 82 18 148/82 (104) 99 04/02/20 04:00 98.1 82 20 139/78 (98) 96 04/02/20 00:00 97.5 77 18 146/79 (101) 98 04/01/20 21:00 Room Air 04/01/20 20:00 98.1 84 20 151/78 (102) 96 04/01/20 16:00 97.7 75 20 141/80 (100) 97 04/01/20 12:00 97.7 83 19 148/80 (102) 99 04/01/20 11:57 142/82 I&O Intake and Output 04/01/20 04/02/20 19:00 07:00 Intake Total 230.0 ml 130 ml Balance 230.0 ml 130 ml Intake Oral 120 ml 130 ml IV Total 110.0 ml # Voids 2 4 Dressing: other Wound: other Drains: other Cardiovascular: RSR Respiratory: decreased breath sounds Abdomen: soft, non-tender, present bowel sounds, non-distended Extremities: no edema, no tenderness, no cyanosis Laboratory Tests Test 04/01/20 11:56 04/02/20 05:40 POC Whole Blood Glucose 253 MG/DL (74-106) H White Blood Count 5.1 K/UL (4.8-10.8) Red Blood Count 3.84 M/UL (4.20-5.40) L Hemoglobin 9.3 G/DL (12.0-16.0) L Hematocrit 30.7 % (37.0-47.0) L Mean Corpuscular Volume 80 FL (80-99) Mean Corpuscular Hemoglobin 24.3 PG (27.0-31.0) L Mean Corpuscular Hemoglobin Concent 30.4 G/DL (32.0-36.0) L Red Cell Distribution Width 22.8 % (11.6-14.8) H Platelet Count 207 K/UL (150-450) Mean Platelet Volume 6.4 FL (6.5-10.1) L Neutrophils (%) (Auto) 70.3 % (45.0-75.0) Lymphocytes (%) (Auto) 16.1 % (20.0-45.0) L Monocytes (%) (Auto) 12.4 % (1.0-10.0) H Eosinophils (%) (Auto) 0.8 % (0.0-3.0) Basophils (%) (Auto) 0.5 % (0.0-2.0) Sodium Level 148 MMOL/L (136-145) H Potassium Level 3.2 MMOL/L (3.5-5.1) L Chloride Level 107 MMOL/L (98-107) Carbon Dioxide Level 29 MMOL/L (21-32) Anion Gap 12 mmol/L (5-15) Blood Urea Nitrogen 14 mg/dL (7-18) Creatinine 1.2 MG/DL (0.55-1.30) Estimat Glomerular Filtration Rate 48.6 mL/min (>60) Glucose Level 146 MG/DL (74-106) #H Calcium Level 9.0 MG/DL (8.5-10.1) Plan Problems: (1) Acute AZ (2) Hypoglycemia (3) Fibroid (4) UTI (urinary tract infection) (5) [id number] (6) dysfunctional uterine bleeding (7) uncontrolled diabetes (8) dysfunctional uterine bleeding (9) Hyperglycemia (10) 24150 (11) DKA (12) uncontrolled diabetes (13) Anemia (14) DKA (15) dysfunctional uterine bleeding (16) Hypokalemia (17) Vaginal bleeding (18) anemia (19) Hyperglycemia (20) Fibroid (21) Hyperglycemia (22) Fibroid (23) Vaginal bleeding (24) Anemia (25) Hypomagnesemia (26) Hypoglycemia (27) T2DM (type 2 diabetes mellitus) (28) Seizure (29) Hypoglycemia (30) Hypoglycemia (31) Hypoglycemia (32) Hypoglycemia (33) Diabetes mellitus out of control (34) Hypotension (35) Hypotension (36) Malnutrition (37) Malnutrition (38) UTI (lower urinary tract infection) (39) Abnormal liver enzymes (40) Abnormal liver enzymes (41) encephalopathy hypoglycemic (42) encephalopathy hypoglycemic (43) Sepsis (44) Sepsis (45) DM (diabetes mellitus) (46) Abdominal pain (47) Abdominal pain Assessment & Plan: 44-year-old female with epigastric abdominal pain nausea vomiting. CT reviewed. Subcutaneous nodule likely a lipoma or prior fat necrosis from anticoagulation seemingly fairly benign superficial. Her abdominal pain is not consistent with cholecystitis and CT was reviewed no gallbladder pathology identified currently. Potentially gastritis. Pending GI input. Okay for diet from surgical standpoint. Rx as needed for nausea and vomiting. Will follow with recommendations. No acute surgical intervention planned at this time. Liver: Mild periportal edema, similar in appearance to October 10, 2017. Gallbladder and bile ducts: The gallbladder is distended. Minimal cholelithiasis. No ductal dilation. Pancreas: Unremarkable. No mass. No ductal dilation. Spleen: Unremarkable. No splenomegaly. Adrenals: Unremarkable. No mass. Kidneys and ureters: Unremarkable. No solid mass. No hydronephrosis. Stomach and bowel: Unremarkable. No obstruction. No mucosal thickening. PELVIS: Appendix: No findings to suggest acute appendicitis. Bladder: Unremarkable. No mass. Reproductive: Fibroid in the lower uterine segment, measuring 2.9 x 2. 6 cm which may be further evaluated with pelvic ultrasound if symptomatic. This appears more well circumscribed and hyperdense when compared to October 10, 2017. ABDOMEN and PELVIS: Intraperitoneal space: Unremarkable. No free air. No significant fluid collection. Bones/joints: No acute fracture. No dislocation. Soft tissues: Mild subcutaneous nodular density anterior to the right pelvis, located 6.1 cm inferior to the umbilicus and 4.5 cm to the right of midline, measuring 1.9 x 1.4 cm. This is nonspecific and should be correlated with physical exam. Vasculature: Unremarkable. No abdominal aortic aneurysm. Lymph nodes: Unremarkable. No enlarged lymph nodes. IMPRESSION: Interval improvement of the previously described bilateral moderate pleural effusions on CT October 10, 2017. Now, small left and trace right pleural effusions remain. Mild left base atelectasis. Fibroid in the lower uterine segment, measuring 2.9 x 2.6 cm which may be further evaluated with pelvic ultrasound if symptomatic. This appears more well circumscribed and hyperdense when compared to October 10, 2017. No small bowel obstruction or acute diverticulitis. Normal appendix. Cholelithiasis without gallbladder wall thickening, unchanged. Mild periportal edema, unchanged. Mild subcutaneous nodular density anterior to the right pelvis, located 6. 1 cm inferior to the umbilicus and 4.5 cm to the right of midline, measuring 1.9 x 1.4 cm. This is nonspecific and should be correlated with physical exam. DAILY ESTIMATED NEEDS: Needs based on Diabetes, cardiac, 48.6kg 25-30 kcals/kg 5576-9232 total kcals 1-1.5 g protein/kg 49-73 g total protein Fluid per MD, pt w/ CHF NUTRITION DIAGNOSIS: 1) Altered nutrition related lab values r/t diabetes and anemia as evidenced by variable BG (146-393), Hgb critically low on adm (4.9->9.3), now w/elev BNP (13158) CURRENT DIET: CCHO LOW/ LOW NA PO DIET RECOMMENDATIONS: CCHO LOW + SNACKS TID ADDITIONAL RECOMMENDATIONS: 1) Standing weight and height for eval (stated 5'1"and 107# bedscale wt, c/w prior bed scale wt) 2) Monitor for hypoglycemia, rec to add snacks in b/w meals 3) Glucerna BID w/ continued fair po intake (48) Headache (49) Diabetes mellitus out of control (50) Symptomatic anemia (51) DUB (dysfunctional uterine bleeding) (52) UTI (lower urinary tract infection) (53) DM (diabetes mellitus) (54) Dysfunctional uterine bleeding (55) Acute on chronic systolic CHF (congestive heart failure) (56) Dehydration (57) Pleural effusion (58) Elevated troponin I level (59) Acute AZ (60) Hypothyroidism (61) Iron deficiency (62) CHF (congestive heart failure) Miko Thomas Apr 02, 2020 10:20
--- NOTE | 2020-04-02 10:24 | NUR ---
NURSE NOTES: patient was seen by . No surgical intervention needed at this time.
--- NOTE | 2020-04-02 10:28 | Pulmonology Progress Note ---
Subjective ROS Limited/Unobtainable: Yes Interval Events: Looking better; no further fevers Constitutional: Denies: fever, chills HEENT: Repors: no symptoms Respiratory: Reports: no symptoms Cardiovascular: Reports: no symptoms Gastrointestinal/Abdominal: Denies: nausea, vomiting, diarrhea Musculoskeletal: Denies: pain Allergies: Coded Allergies: No Known Allergies (Verified , 09/02/07) Objective Last 24 Hour Vital Signs Date Time Temp Pulse Resp B/P (MAP) Pulse Ox O2 Delivery O2 Flow Rate FiO2 04/02/20 09:05 148/82 04/02/20 09:00 Room Air 04/02/20 08:00 98.1 82 18 148/82 (104) 99 04/02/20 04:00 98.1 82 20 139/78 (98) 96 04/02/20 00:00 97.5 77 18 146/79 (101) 98 04/01/20 21:00 Room Air 04/01/20 20:00 98.1 84 20 151/78 (102) 96 04/01/20 16:00 97.7 75 20 141/80 (100) 97 04/01/20 12:00 97.7 83 19 148/80 (102) 99 04/01/20 11:57 142/82 Intake and Output 04/01/20 04/02/20 19:00 07:00 Intake Total 230.0 ml 130 ml Balance 230.0 ml 130 ml Intake Oral 120 ml 130 ml IV Total 110.0 ml # Voids 2 4 General Appearance: no acute distress HEENT: normocephalic Respiratory: chest wall non-tender, lungs clear Cardiovascular: normal peripheral pulses Abdomen: normal bowel sounds Laboratory Tests 04/01/20 11:56: POC Whole Blood Glucose 253H 04/02/20 05:40: White Blood Count 5.1, Red Blood Count 3.84L, Hemoglobin 9.3L, Hematocrit 30.7L , Mean Corpuscular Volume 80, Mean Corpuscular Hemoglobin 24.3L, Mean Corpuscular Hemoglobin Concent 30.4L, Red Cell Distribution Width 22.8H, Platelet Count 207, Mean Platelet Volume 6.4L, Neutrophils (%) (Auto) 70.3, Lymphocytes (%) (Auto) 16.1L, Monocytes (%) (Auto) 12.4H, Eosinophils (%) (Auto ) 0.8, Basophils (%) (Auto) 0.5, Sodium Level 148H, Potassium Level 3.2L, Chloride Level 107, Carbon Dioxide Level 29, Anion Gap 12, Blood Urea Nitrogen 14, Creatinine 1.2, Estimat Glomerular Filtration Rate 48.6, Glucose Level 146#H , Calcium Level 9.0 Current Medications Medications (Trade) Dose Ordered Sig/Alycia Route PRN Reason Start Time Stop Time Status Last Admin Dose Admin Acetaminophen (Tylenol) 650 mg Q4H PRN ORAL Mild Pain (Pain Scale 1-3)/fev 03/28/20 20:00 04/27/20 19:59 Acetaminophen/ Codeine Phosphate (Tylenol #3) 1 tab Q4H PRN ORAL Moderate Pain (Pain Scale 4-6) 03/28/20 18:15 04/04/20 18:14 04/01/20 09:45 Al Hydroxide/Mg Hydroxide (Mylanta) 30 ml Q6H PRN ORAL Abdominal cramps 03/28/20 23:00 04/26/20 22:59 04/01/20 09:49 Barium Sulfate (Readi-Cat 2) 450 ml NOW PRN ORAL Radiology Procedure 03/29/20 12:00 Benazepril HCl (Lotensin) 20 mg DAILY ORAL 04/01/20 11:00 05/01/20 10:59 04/02/20 09:05 Bisacodyl (Dulcolax) 10 mg DAILYPRN PRN RECTAL Constipation 03/29/20 14:00 06/27/20 13:59 03/30/20 18:09 Dextrose (Dextrose 50%) 25 ml Q30M PRN IV Hypoglycemia 03/28/20 18:15 06/25/20 01:44 Dextrose (Dextrose 50%) 50 ml Q30M PRN IV Hypoglycemia 03/28/20 18:15 06/25/20 01:44 Diphenhydramine HCl (Benadryl) 25 mg Q6H PRN ORAL Itching 03/28/20 18:30 04/25/20 18:29 Docusate Sodium (Colace) 250 mg DAILY ORAL 03/29/20 14:00 04/28/20 13:59 04/02/20 09:05 Famotidine (Pepcid) 20 mg DAILY ORAL 03/29/20 09:00 06/25/20 08:59 04/02/20 09:05 Insulin Aspart (NovoLOG) BEFORE MEALS AND HS SUBQ 03/28/20 21:00 06/25/20 06:29 04/01/20 11:58 Insulin Detemir (Levemir) 10 units DAILY SUBQ 04/01/20 11:00 06/30/20 10:59 04/02/20 09:14 Insulin Detemir (Levemir) 15 units BEDTIME SUBQ 03/31/20 21:00 06/29/20 20:59 04/01/20 21:06 Iohexol (OMNIPAQUE-300 100ml) 100 ml NOW PRN INJ Radiology Procedure 03/29/20 12:00 Levothyroxine Sodium (Synthroid) 150 mcg DAILY@0630 ORAL 03/29/20 06:30 04/27/20 06:29 04/02/20 05:15 Magnesium Hydroxide (Mom) 30 ml DAILYPRN PRN ORAL Constipation 03/29/20 14:00 04/28/20 13:59 04/01/20 17:43 Metoclopramide HCl (Reglan) 5 mg Q6H IVP 04/01/20 23:00 05/01/20 22:59 04/02/20 05:14 Ondansetron HCl (Zofran) 4 mg Q6H PRN IVP Nausea & Vomiting 03/29/20 14:00 04/28/20 13:59 04/02/20 04:54 Pantoprazole (Protonix) 40 mg EVERY 12 HOURS IVP 04/01/20 23:00 05/01/20 22:59 04/02/20 09:05 Piperacillin Sod/ Tazobactam Sod 3.375 gm/Sodium Chloride 110 ml @ 27.5 mls/hr EVERY 8 HOURS IVPB 03/28/20 22:00 04/06/20 21:59 04/02/20 05:16 Potassium Chloride 100 ml @ 100 mls/hr Q1H IV 04/02/20 08:30 04/02/20 11:29 04/02/20 09:12 Sodium 1,000 ml @ 100 mls/hr Q10H IV 04/02/20 11:00 05/02/20 10:59 Assessment/Plan Assessment/Plan IMPRESSION: 1. Urinary tract infection. 2. Anemia. 3. Fever. 4. Bacteremia DISCUSSION: Continue oxygen prn. Has negative COVID-19 PCR. Broad spectrum antibiotics. I will follow as recovery coach. Currently saturating well on RA WIll sign off Dia Garza Omar Syed MD Apr 02, 2020 10:28
--- NOTE | 2020-04-02 10:35 | Infectious Diseases Prog Note ---
Assessment/Plan Assessment/Plan antibiotics : zosyn A 1. e.coli UTI 2. gram negative sepsis 3. leucocytosis resolved 4. diabetes mellitus 5. uterine fibroids P 1. d/c zosyn 2. start ceftriaxone 3. will follow up cultures Subjective Constitutional: Denies: fever, chills Respiratory: Denies: shortness of breath, dry cough Gastrointestinal/Abdominal: Denies: nausea, vomiting, diarrhea Musculoskeletal: Denies: pain Allergies: Coded Allergies: No Known Allergies (Verified , 09/02/07) Objective Last 24 Hour Vital Signs Date Time Temp Pulse Resp B/P (MAP) Pulse Ox O2 Delivery O2 Flow Rate FiO2 04/02/20 09:05 148/82 04/02/20 09:00 Room Air 04/02/20 08:00 98.1 82 18 148/82 (104) 99 04/02/20 04:00 98.1 82 20 139/78 (98) 96 04/02/20 00:00 97.5 77 18 146/79 (101) 98 04/01/20 21:00 Room Air 04/01/20 20:00 98.1 84 20 151/78 (102) 96 04/01/20 16:00 97.7 75 20 141/80 (100) 97 04/01/20 12:00 97.7 83 19 148/80 (102) 99 04/01/20 11:57 142/82 Height (Feet): 4 Height (Inches): 11.00 Weight (Pounds): 112 Respiratory/Chest: lungs clear Cardiovascular: normal rate, regular rhythm, no gallop/murmur Abdomen: soft, non tender Extremities: no edema Laboratory Tests Test 04/01/20 11:56 04/02/20 05:40 POC Whole Blood Glucose 253 MG/DL (74-106) H White Blood Count 5.1 K/UL (4.8-10.8) Red Blood Count 3.84 M/UL (4.20-5.40) L Hemoglobin 9.3 G/DL (12.0-16.0) L Hematocrit 30.7 % (37.0-47.0) L Mean Corpuscular Volume 80 FL (80-99) Mean Corpuscular Hemoglobin 24.3 PG (27.0-31.0) L Mean Corpuscular Hemoglobin Concent 30.4 G/DL (32.0-36.0) L Red Cell Distribution Width 22.8 % (11.6-14.8) H Platelet Count 207 K/UL (150-450) Mean Platelet Volume 6.4 FL (6.5-10.1) L Neutrophils (%) (Auto) 70.3 % (45.0-75.0) Lymphocytes (%) (Auto) 16.1 % (20.0-45.0) L Monocytes (%) (Auto) 12.4 % (1.0-10.0) H Eosinophils (%) (Auto) 0.8 % (0.0-3.0) Basophils (%) (Auto) 0.5 % (0.0-2.0) Sodium Level 148 MMOL/L (136-145) H Potassium Level 3.2 MMOL/L (3.5-5.1) L Chloride Level 107 MMOL/L (98-107) Carbon Dioxide Level 29 MMOL/L (21-32) Anion Gap 12 mmol/L (5-15) Blood Urea Nitrogen 14 mg/dL (7-18) Creatinine 1.2 MG/DL (0.55-1.30) Estimat Glomerular Filtration Rate 48.6 mL/min (>60) Glucose Level 146 MG/DL (74-106) #H Calcium Level 9.0 MG/DL (8.5-10.1) Current Medications Medications (Trade) Dose Ordered Sig/Alycia Route PRN Reason Start Time Stop Time Status Last Admin Dose Admin Acetaminophen (Tylenol) 650 mg Q4H PRN ORAL Mild Pain (Pain Scale 1-3)/fev 03/28/20 20:00 04/27/20 19:59 Acetaminophen/ Codeine Phosphate (Tylenol #3) 1 tab Q4H PRN ORAL Moderate Pain (Pain Scale 4-6) 03/28/20 18:15 04/04/20 18:14 04/01/20 09:45 Al Hydroxide/Mg Hydroxide (Mylanta) 30 ml Q6H PRN ORAL Abdominal cramps 03/28/20 23:00 04/26/20 22:59 04/01/20 09:49 Barium Sulfate (Readi-Cat 2) 450 ml NOW PRN ORAL Radiology Procedure 03/29/20 12:00 Benazepril HCl (Lotensin) 20 mg DAILY ORAL 04/01/20 11:00 05/01/20 10:59 04/02/20 09:05 Bisacodyl (Dulcolax) 10 mg DAILYPRN PRN RECTAL Constipation 03/29/20 14:00 06/27/20 13:59 03/30/20 18:09 Dextrose (Dextrose 50%) 25 ml Q30M PRN IV Hypoglycemia 03/28/20 18:15 06/25/20 01:44 Dextrose (Dextrose 50%) 50 ml Q30M PRN IV Hypoglycemia 03/28/20 18:15 06/25/20 01:44 Diphenhydramine HCl (Benadryl) 25 mg Q6H PRN ORAL Itching 03/28/20 18:30 04/25/20 18:29 Docusate Sodium (Colace) 250 mg DAILY ORAL 03/29/20 14:00 04/28/20 13:59 04/02/20 09:05 Famotidine (Pepcid) 20 mg DAILY ORAL 03/29/20 09:00 06/25/20 08:59 04/02/20 09:05 Insulin Aspart (NovoLOG) BEFORE MEALS AND HS SUBQ 03/28/20 21:00 06/25/20 06:29 04/01/20 11:58 Insulin Detemir (Levemir) 10 units DAILY SUBQ 04/01/20 11:00 06/30/20 10:59 04/02/20 09:14 Insulin Detemir (Levemir) 15 units BEDTIME SUBQ 03/31/20 21:00 06/29/20 20:59 04/01/20 21:06 Iohexol (OMNIPAQUE-300 100ml) 100 ml NOW PRN INJ Radiology Procedure 03/29/20 12:00 Levothyroxine Sodium (Synthroid) 150 mcg DAILY@0630 ORAL 03/29/20 06:30 04/27/20 06:29 04/02/20 05:15 Magnesium Hydroxide (Mom) 30 ml DAILYPRN PRN ORAL Constipation 03/29/20 14:00 04/28/20 13:59 04/01/20 17:43 Metoclopramide HCl (Reglan) 5 mg Q6H IVP 04/01/20 23:00 05/01/20 22:59 04/02/20 05:14 Ondansetron HCl (Zofran) 4 mg Q6H PRN IVP Nausea & Vomiting 03/29/20 14:00 04/28/20 13:59 04/02/20 04:54 Pantoprazole (Protonix) 40 mg EVERY 12 HOURS IVP 04/01/20 23:00 05/01/20 22:59 04/02/20 09:05 Piperacillin Sod/ Tazobactam Sod 3.375 gm/Sodium Chloride 110 ml @ 27.5 mls/hr EVERY 8 HOURS IVPB 03/28/20 22:00 04/06/20 21:59 04/02/20 05:16 Potassium Chloride 100 ml @ 100 mls/hr Q1H IV 04/02/20 08:30 04/02/20 11:29 04/02/20 09:12 Sodium 1,000 ml @ 100 mls/hr Q10H IV 04/02/20 11:00 05/02/20 10:59 Jonny White MD Apr 02, 2020 10:35
[2020-04-02 12:00] VITALS: BP 140/81
[2020-04-02] MEDS: cefTRIAXone 1 GM in D5W 55 ML IVPB SCH (12:14)
[2020-04-02] MEDS: 1/2NS w/KCl 20mEq 1000ml 1,000 ML IV SCH ×2 (12:22→20:12)
--- NOTE | 2020-04-02 12:25 | NUR ---
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 SW called [facility] [phone] and was informed they do not provide primary care service, only substance abuse. SW called [facility] in [place] that the location services pediatric only. The adult clinic is located in [place]. SW called the call center [phone] and was informed they accept pt's insurance and was wiling to accept pt. SW attempted to call [facility] [phone] and [facility] [phone].The automatic voicemail systems state such clinics are closed due to pandemic. SW spoke w/ pt through paper machine back tender Cleopatra #[phone] and explained the importance of outpatient service. Pt reports she will not able able to travel to [facility] or [facility]. SW explained that the closest clinic from her apartment in [place] ([facility]) is currently closed due to pandemic. SW directed pt to call the clinic to check if it is open. SW also explained that [facility] in [place] is currently open for new client if she changes her mind. SW verbalized understanding. SW provided the community resource packet including community center list. Pt did not verbalize any needs/concerns at this time. Addendum: 04/02/20 at 1317 by TIAGO SCHULER SW spoke w/ pt's son Johann [phone] and informed of this SW's communication w/ pt. Johann reports the family will schedule the appt and arrange the transportation. GANGA provided the clinic information including [facility] and [facility]. GANGA also informed him that this GANGA provided the community resource packet to pt. Addendum: 04/02/20 at 1320 by TIAGO SCHULER ADD: GANGA also attempted to call [facility] [phone] and the call was not answered and did not accept voicemail.
--- NOTE | 2020-04-02 13:50 | NUR ---
CASE MANAGEMENT:REVIEW 04/02/20 SI: GRAM NEGATIVE SEPSIS. E COLI UTI INTRACTABLE VOMITING 98.1 85 18 140/81 99% ON RA H/H-9.3/30.7 NA+148 K-3.2 GLUCOSE+146 IS: IVF@100/HR IV ROCEPHIN Q24 IV PROTONIX Q12 IV REGLAN Q6HRS LEVEMIR SQ QD LOTENSIN PO QD LEVEMIR SQ QHS : MED/SURG STATUS 4 [facility]; PATIENT IS FROM HOME PLAN: DISCHARGE HELD SINCE PATIENT HAD TWO EMESIS TODAY
--- NOTE | 2020-04-02 13:59 | NUR ---
DISCHARGE PLANNING *SEED DISTRICT SALES MANAGER SPOKE WITH PATIENT'S SON REGARDING F/U APPT *DISCHARGE WILL BE HELD TODAY SINCE PATIENT HAD 2 EMESIS *NEED NAME AND PHONE NUMBER OF PHARMACY THAT PATIENT FREQUENTS Addendum: 04/02/20 at 1401 by BARRON RODRIGUES LVN LVN ALFONSO LUONG T: [phone]
[2020-04-02 16:00] VITALS: BP 142/89
--- NOTE | 2020-04-02 19:21 | NUR ---
HAND-OFF: Report given to MARLYS Sow..
--- NOTE | 2020-04-02 19:30 | NUR ---
NURSE NOTES: Pt. received from MARLYS Gotti. Pt. AAOx4, on room air, no indications of respiratory distress and no complaints of pain at this time. Pt. with right wrist 24g intact and patent with fluids running. Pending OB stool collection, pt. aware and acknowledged. Bed is low and locked, side rails x2 up, and call light in reach.
[2020-04-02 20:00] VITALS: BP 152/84
[2020-04-02] MEDS: Tylenol #3 tab (300mg/30mg) ORAL PRN (20:13)
--- NOTE | 2020-04-02 20:39 | General Progress Note ---
Assessment/Plan Assessment/Plan: Assessment - Anemia, OB (-) stools - dysfunctional uterine bleeding - hypothyroid - UTI - GNR sepsis - DM Recommendations - BID PPI - QID reglan - follow labs Subjective Allergies: Coded Allergies: No Known Allergies (Verified , 09/02/07) Subjective Above noted doing better less N/V Objective Last 24 Hour Vital Signs Date Time Temp Pulse Resp B/P (MAP) Pulse Ox O2 Delivery O2 Flow Rate FiO2 04/02/20 16:00 98.2 83 18 142/89 (106) 96 04/02/20 12:00 98.1 85 18 140/81 (100) 99 04/02/20 09:05 148/82 04/02/20 09:00 Room Air 04/02/20 08:00 98.1 82 18 148/82 (104) 99 04/02/20 04:00 98.1 82 20 139/78 (98) 96 04/02/20 00:00 97.5 77 18 146/79 (101) 98 04/01/20 21:00 Room Air Intake and Output 04/01/20 04/02/20 19:00 07:00 Intake Total 230.0 ml 130 ml Balance 230.0 ml 130 ml Intake Oral 120 ml 130 ml IV Total 110.0 ml # Voids 2 4 Laboratory Tests 04/01/20 21:00: POC Whole Blood Glucose 108H 04/02/20 05:17: POC Whole Blood Glucose 129H 04/02/20 05:40: White Blood Count 5.1, Red Blood Count 3.84L, Hemoglobin 9.3L, Hematocrit 30.7L , Mean Corpuscular Volume 80, Mean Corpuscular Hemoglobin 24.3L, Mean Corpuscular Hemoglobin Concent 30.4L, Red Cell Distribution Width 22.8H, Platelet Count 207, Mean Platelet Volume 6.4L, Neutrophils (%) (Auto) 70.3, Lymphocytes (%) (Auto) 16.1L, Monocytes (%) (Auto) 12.4H, Eosinophils (%) (Auto ) 0.8, Basophils (%) (Auto) 0.5, Sodium Level 148H, Potassium Level 3.2L, Chloride Level 107, Carbon Dioxide Level 29, Anion Gap 12, Blood Urea Nitrogen 14, Creatinine 1.2, Estimat Glomerular Filtration Rate 48.6, Glucose Level 146#H , Calcium Level 9.0 04/02/20 09:07: POC Whole Blood Glucose 182H 04/02/20 12:21: POC Whole Blood Glucose 206H 04/02/20 16:32: POC Whole Blood Glucose [Pending] Height (Feet): 4 Height (Inches): 11.00 Weight (Pounds): 112 Objective WDWN NCAT supple CTA RR Abd soft NT ND no edema Brooklynn Lucas MD Apr 02, 2020 20:39
--- NOTE | 2020-04-02 21:00 | NUR ---
NURSE NOTES: Pt. with episode of emesis, clear contents, antiemetic given as ordered.
--- NOTE | 2020-04-03 00:14 | Progress Note ---
DATE: 04/02/2020 INTERNAL MEDICINE PROGRESS NOTE SUBJECTIVE: Patient is still vomiting. Several episodes today. Unable to tolerate diet. Repeat abdominal ultrasound with no acute hepatobiliary process. PHYSICAL EXAMINATION: VITAL SIGNS: Blood pressure 140/81, heart rate 85, respirations 18, no fevers. LUNGS: Clear. ABDOMEN: Soft. Minimally tender in the midepigastric region. No guarding or rebound. EXTREMITIES: No edema. IMPRESSION: Slightly improved. Still unable to discharge due to vomiting and intolerance of medications. Remains with dehydration, hyponatremia, and hypokalemia. PLAN: 1. GI regimen as outlined yesterday has been initiated. 2. IV fluids adjusted. 3. Advance insulin. 4. Titrate cardiovascular regimen. 5. Continue thyroid replacement therapy. 6. Patient's son made aware by telephone the need for outpatient medical followup. Wade Rodríguez M.D. DR: SHAHID JOB#: [id number] CC:
[2020-04-03 04:00] VITALS: BP 139/76
[2020-04-03] MEDS: Metoclopramide 10mg/2ml Inj IVP SCH ×2 (04:22→11:30)
[2020-04-03] MEDS: NovoLOG Insulin Flexpen SUBQ SCH ×2 (06:30→11:32)
[2020-04-03] MEDS: 1/2NS w/KCl 20mEq 1000ml 1,000 ML IV SCH (06:50)
--- NOTE | 2020-04-03 07:25 | NUR ---
NURSE NOTES: received patient in bed , sleeping but easily arousable, no sign of distress , denies pain or shortness of breath but still complaining of nausea and vomiting , IVF lnfusing well on right wrist, on fall , seizure and aspiration precaution, bed is low and locked, side rails x2 up, and call light in reach. instructed patient to call for assistance when in need, margret swanson
--- NOTE | 2020-04-03 07:35 | NUR ---
HAND-OFF: Report given to MARLYS Pastrana. Pt. awake and alert. Last blood glucose 70, endorsed Dr. Rodríguez notified and awaiting follow up.
[2020-04-03] MEDS: Docusate 250mg cap ORAL SCH (08:18)
[2020-04-03] MEDS: Pantoprazole Inj IVP SCH (08:18)
[2020-04-03] MEDS: Benazepril 10mg tab ORAL SCH (08:18)
[2020-04-03] MEDS: Levemir Flexpen SUBQ SCH (08:19)
[2020-04-03 08:28] VITALS: BP 152/87
--- NOTE | 2020-04-03 09:18 | Surgery Progress Note ---
Surgery Progress Note Subjective Symptoms: improved, tolerating diet, voiding well, passing flatus Objective Last 24 Hour Vital Signs Date Time Temp Pulse Resp B/P (MAP) Pulse Ox O2 Delivery O2 Flow Rate FiO2 04/03/20 08:40 Room Air 04/03/20 08:28 98.1 84 20 152/87 (108) 98 04/03/20 08:18 139/76 04/03/20 04:00 97.3 84 18 139/76 (97) 98 04/02/20 21:00 Room Air 04/02/20 20:00 96.1 88 20 152/84 (106) 96 04/02/20 16:00 98.2 83 18 142/89 (106) 96 04/02/20 12:00 98.1 85 18 140/81 (100) 99 I&O Intake and Output 04/02/20 04/03/20 19:00 07:00 Intake Total 930 ml 1200 ml Output Total 20 ml Balance 930 ml 1180 ml Intake Oral 120 ml 300 ml IV Total 810 ml 900 ml Emesis 20 ml # Voids 3 2 Cardiovascular: RSR Respiratory: clear Abdomen: soft, non-tender, present bowel sounds, non-distended Extremities: no edema, no tenderness, no cyanosis Laboratory Tests Test 04/02/20 12:21 04/02/20 16:32 04/02/20 20:02 POC Whole Blood Glucose 206 MG/DL (74-106) H Pending 139 MG/DL (74-106) H Plan Problems: (1) Acute IN (2) Hypoglycemia (3) Fibroid (4) UTI (urinary tract infection) (5) [id number] (6) dysfunctional uterine bleeding (7) uncontrolled diabetes (8) dysfunctional uterine bleeding (9) Hyperglycemia (10) [address]5610 (11) DKA (12) uncontrolled diabetes (13) Anemia (14) DKA (15) dysfunctional uterine bleeding (16) Hypokalemia (17) Vaginal bleeding (18) anemia (19) Hyperglycemia (20) Fibroid (21) Hyperglycemia (22) Fibroid (23) Vaginal bleeding (24) Anemia (25) Hypomagnesemia (26) Hypoglycemia (27) T2DM (type 2 diabetes mellitus) (28) Seizure (29) Hypoglycemia (30) Hypoglycemia (31) Hypoglycemia (32) Hypoglycemia (33) Diabetes mellitus out of control (34) Hypotension (35) Hypotension (36) Malnutrition (37) Malnutrition (38) UTI (lower urinary tract infection) (39) Abnormal liver enzymes (40) Abnormal liver enzymes (41) encephalopathy hypoglycemic (42) encephalopathy hypoglycemic (43) Sepsis (44) Sepsis (45) DM (diabetes mellitus) (46) Abdominal pain (47) Abdominal pain Assessment & Plan: 44-year-old female with epigastric abdominal pain nausea vomiting. CT reviewed. Subcutaneous nodule likely a lipoma or prior fat necrosis from anticoagulation seemingly fairly benign superficial. Her abdominal pain is not consistent with cholecystitis and CT was reviewed no gallbladder pathology identified currently. Potentially gastritis. Pending GI input. Okay for diet from surgical standpoint. Rx as needed for nausea and vomiting. Will follow with recommendations. No acute surgical intervention planned at this time. d/c planning diet as tolerated outpatient f/u pcp Liver: Mild periportal edema, similar in appearance to October 10, 2017. Gallbladder and bile ducts: The gallbladder is distended. Minimal cholelithiasis. No ductal dilation. Pancreas: Unremarkable. No mass. No ductal dilation. Spleen: Unremarkable. No splenomegaly. Adrenals: Unremarkable. No mass. Kidneys and ureters: Unremarkable. No solid mass. No hydronephrosis. Stomach and bowel: Unremarkable. No obstruction. No mucosal thickening. PELVIS: Appendix: No findings to suggest acute appendicitis. Bladder: Unremarkable. No mass. Reproductive: Fibroid in the lower uterine segment, measuring 2.9 x 2. 6 cm which may be further evaluated with pelvic ultrasound if symptomatic. This appears more well circumscribed and hyperdense when compared to October 10, 2017. ABDOMEN and PELVIS: Intraperitoneal space: Unremarkable. No free air. No significant fluid collection. Bones/joints: No acute fracture. No dislocation. Soft tissues: Mild subcutaneous nodular density anterior to the right pelvis, located 6.1 cm inferior to the umbilicus and 4.5 cm to the right of midline, measuring 1.9 x 1.4 cm. This is nonspecific and should be correlated with physical exam. Vasculature: Unremarkable. No abdominal aortic aneurysm. Lymph nodes: Unremarkable. No enlarged lymph nodes. IMPRESSION: Interval improvement of the previously described bilateral moderate pleural effusions on CT October 10, 2017. Now, small left and trace right pleural effusions remain. Mild left base atelectasis. Fibroid in the lower uterine segment, measuring 2.9 x 2.6 cm which may be further evaluated with pelvic ultrasound if symptomatic. This appears more well circumscribed and hyperdense when compared to October 10, 2017. No small bowel obstruction or acute diverticulitis. Normal appendix. Cholelithiasis without gallbladder wall thickening, unchanged. Mild periportal edema, unchanged. Mild subcutaneous nodular density anterior to the right pelvis, located 6. 1 cm inferior to the umbilicus and 4.5 cm to the right of midline, measuring 1.9 x 1.4 cm. This is nonspecific and should be correlated with physical exam. DAILY ESTIMATED NEEDS: Needs based on Diabetes, cardiac, 48.6kg 25-30 kcals/kg 8012-4180 total kcals 1-1.5 g protein/kg 49-73 g total protein Fluid per MD, pt w/ CHF NUTRITION DIAGNOSIS: 1) Altered nutrition related lab values r/t diabetes and anemia as evidenced by variable BG (146-393), Hgb critically low on adm (4.9->9.3), now w/elev BNP (67534) CURRENT DIET: CCHO LOW/ LOW NA PO DIET RECOMMENDATIONS: CCHO LOW + SNACKS TID ADDITIONAL RECOMMENDATIONS: 1) Standing weight and height for eval (stated 5'1"and 107# bedscale wt, c/w prior bed scale wt) 2) Monitor for hypoglycemia, rec to add snacks in b/w meals 3) Glucerna BID w/ continued fair po intake (48) Headache (49) Diabetes mellitus out of control (50) Symptomatic anemia (51) DUB (dysfunctional uterine bleeding) (52) UTI (lower urinary tract infection) (53) DM (diabetes mellitus) (54) Dysfunctional uterine bleeding (55) Acute on chronic systolic CHF (congestive heart failure) (56) Dehydration (57) Pleural effusion (58) Elevated troponin I level (59) Acute IN (60) Hypothyroidism (61) Iron deficiency (62) CHF (congestive heart failure) Miko Thomas Apr 03, 2020 09:18
[2020-04-03 10:21] LABS: BASOPHILS % (AUTO) 0.8 % (0.0-2.0); HEMATOCRIT 33.3 % (37.0-47.0); HEMOGLOBIN 10.2 G/DL (12.0-16.0); LYMPHOCYTES % (AUTO) 14.6 % (20.0-45.0); MEAN CORPUSCULAR VOLUME 80 FL (80-99); MONOCYTES % (AUTO) 9.6 % (1.0-10.0); PLATELET COUNT 221 K/UL (150-450); RED BLOOD COUNT 4.16 M/UL (4.20-5.40); RED CELL DISTRIBUTION WIDTH 22.5 % (11.6-14.8); WHITE BLOOD COUNT 8.4 K/UL (4.8-10.8)
[2020-04-03 10:25] LABS: ANION GAP 7 mmol/L (5-15); BLOOD UREA NITROGEN 10 mg/dL (7-18); CALCIUM 8.1 MG/DL (8.5-10.1); CARBON DIOXIDE 33 MMOL/L (21-32); CHLORIDE 102 MMOL/L (98-107); POTASSIUM 3.6 MMOL/L (3.5-5.1); SODIUM 142 MMOL/L (136-145)
[2020-04-03 10:29] LABS: ALANINE AMINOTRANSFERASE 11 U/L (12-78); ALBUMIN 2.8 G/DL (3.4-5.0); ALBUMIN/GLOBULIN RATIO 0.6 (1.0-2.7); ALKALINE PHOSPHATASE 101 U/L (46-116); ASPARTATE AMINO TRANSFERASE 25 U/L (15-37); BILIRUBIN,TOTAL 0.4 MG/DL (0.2-1.0)
--- NOTE | 2020-04-03 10:40 | Infectious Diseases Prog Note ---
Assessment/Plan Assessment/Plan antibiotics : ceftriaxone A 1. e.coli UTI 2. gram negative sepsis 3. leucocytosis resolved 4. diabetes mellitus 5. uterine fibroids P 1. continue ceftriaxone 3 more days 2. will follow up cultures Subjective ROS Limited/Unobtainable: Yes Allergies: Coded Allergies: No Known Allergies (Verified , 09/02/07) Objective Last 24 Hour Vital Signs Date Time Temp Pulse Resp B/P (MAP) Pulse Ox O2 Delivery O2 Flow Rate FiO2 04/03/20 08:40 Room Air 04/03/20 08:28 98.1 84 20 152/87 (108) 98 04/03/20 08:18 139/76 04/03/20 04:00 97.3 84 18 139/76 (97) 98 04/02/20 21:00 Room Air 04/02/20 20:00 96.1 88 20 152/84 (106) 96 04/02/20 16:00 98.2 83 18 142/89 (106) 96 04/02/20 12:00 98.1 85 18 140/81 (100) 99 Height (Feet): 4 Height (Inches): 11.00 Weight (Pounds): 112 Respiratory/Chest: lungs clear Cardiovascular: normal rate, regular rhythm, no gallop/murmur Abdomen: soft, non tender Extremities: no edema Laboratory Tests Test 04/02/20 12:21 04/02/20 16:32 04/02/20 20:02 04/03/20 10:00 POC Whole Blood Glucose 206 MG/DL (74-106) H Pending 139 MG/DL (74-106) H White Blood Count 8.4 K/UL (4.8-10.8) # Red Blood Count 4.16 M/UL (4.20-5.40) L Hemoglobin 10.2 G/DL (12.0-16.0) L Hematocrit 33.3 % (37.0-47.0) L Mean Corpuscular Volume 80 FL (80-99) Mean Corpuscular Hemoglobin 24.5 PG (27.0-31.0) L Mean Corpuscular Hemoglobin Concent 30.5 G/DL (32.0-36.0) L Red Cell Distribution Width 22.5 % (11.6-14.8) H Platelet Count 221 K/UL (150-450) Mean Platelet Volume 6.7 FL (6.5-10.1) Neutrophils (%) (Auto) 74.0 % (45.0-75.0) Lymphocytes (%) (Auto) 14.6 % (20.0-45.0) L Monocytes (%) (Auto) 9.6 % (1.0-10.0) Eosinophils (%) (Auto) 1.0 % (0.0-3.0) Basophils (%) (Auto) 0.8 % (0.0-2.0) Sodium Level 142 MMOL/L (136-145) Potassium Level 3.6 MMOL/L (3.5-5.1) Chloride Level 102 MMOL/L (98-107) Carbon Dioxide Level 33 MMOL/L (21-32) H Anion Gap 7 mmol/L (5-15) Blood Urea Nitrogen 10 mg/dL (7-18) Creatinine 1.0 MG/DL (0.55-1.30) Estimat Glomerular Filtration Rate > 60 mL/min (>60) Glucose Level 203 MG/DL (74-106) H Calcium Level 8.1 MG/DL (8.5-10.1) L Magnesium Level 1.7 MG/DL (1.8-2.4) L Total Bilirubin 0.4 MG/DL (0.2-1.0) Aspartate Amino Transf (AST/SGOT) 25 U/L (15-37) Alanine Aminotransferase (ALT/SGPT) 11 U/L (12-78) L Alkaline Phosphatase 101 U/L (46-116) Total Protein 7.8 G/DL (6.4-8.2) Albumin 2.8 G/DL (3.4-5.0) L Globulin 5.0 g/dL Albumin/Globulin Ratio 0.6 (1.0-2.7) L Current Medications Medications (Trade) Dose Ordered Sig/Alycia Route PRN Reason Start Time Stop Time Status Last Admin Dose Admin Acetaminophen (Tylenol) 650 mg Q4H PRN ORAL Mild Pain (Pain Scale 1-3)/fev 03/28/20 20:00 04/27/20 19:59 Acetaminophen/ Codeine Phosphate (Tylenol #3) 1 tab Q4H PRN ORAL Moderate Pain (Pain Scale 4-6) 03/28/20 18:15 04/04/20 18:14 04/02/20 20:13 Al Hydroxide/Mg Hydroxide (Mylanta) 30 ml Q6H PRN ORAL Abdominal cramps 03/28/20 23:00 04/26/20 22:59 04/01/20 09:49 Barium Sulfate (Readi-Cat 2) 450 ml NOW PRN ORAL Radiology Procedure 03/29/20 12:00 Benazepril HCl (Lotensin) 20 mg DAILY ORAL 04/01/20 11:00 05/01/20 10:59 04/03/20 08:18 Bisacodyl (Dulcolax) 10 mg DAILYPRN PRN RECTAL Constipation 03/29/20 14:00 06/27/20 13:59 03/30/20 18:09 Ceftriaxone Sodium 1 gm/ Dextrose 55 ml @ 110 mls/hr Q24H IVPB 04/02/20 11:00 04/09/20 10:59 04/02/20 12:14 Dextrose (Dextrose 50%) 25 ml Q30M PRN IV Hypoglycemia 03/28/20 18:15 06/25/20 01:44 Dextrose (Dextrose 50%) 50 ml Q30M PRN IV Hypoglycemia 03/28/20 18:15 06/25/20 01:44 Diphenhydramine HCl (Benadryl) 25 mg Q6H PRN ORAL Itching 03/28/20 18:30 04/25/20 18:29 Docusate Sodium (Colace) 250 mg DAILY ORAL 03/29/20 14:00 04/28/20 13:59 04/03/20 08:18 Famotidine (Pepcid) 20 mg DAILY ORAL 03/29/20 09:00 06/25/20 08:59 04/03/20 08:18 Insulin Aspart (NovoLOG) BEFORE MEALS AND HS SUBQ 03/28/20 21:00 06/25/20 06:29 04/02/20 16:44 Insulin Detemir (Levemir) 10 units DAILY SUBQ 04/01/20 11:00 06/30/20 10:59 04/02/20 09:14 Insulin Detemir (Levemir) 15 units BEDTIME SUBQ 03/31/20 21:00 06/29/20 20:59 04/02/20 20:20 Iohexol (OMNIPAQUE-300 100ml) 100 ml NOW PRN INJ Radiology Procedure 03/29/20 12:00 Levothyroxine Sodium (Synthroid) 150 mcg DAILY@0630 ORAL 03/29/20 06:30 04/27/20 06:29 04/03/20 06:47 Magnesium Hydroxide (Mom) 30 ml DAILYPRN PRN ORAL Constipation 03/29/20 14:00 04/28/20 13:59 04/01/20 17:43 Metoclopramide HCl (Reglan) 5 mg Q6H IVP 04/01/20 23:00 05/01/20 22:59 04/03/20 04:22 Ondansetron HCl (Zofran) 4 mg Q6H PRN IVP Nausea & Vomiting 03/29/20 14:00 04/28/20 13:59 04/02/20 20:13 Pantoprazole (Protonix) 40 mg EVERY 12 HOURS IVP 04/01/20 23:00 05/01/20 22:59 04/03/20 08:18 Sodium 1,000 ml @ 100 mls/hr Q10H IV 04/02/20 11:00 05/02/20 10:59 04/03/20 06:50 Jonny White MD Apr 03, 2020 10:40
--- NOTE | 2020-04-03 10:53 | NUR ---
CASE MANAGEMENT:REVIEW 04/03/20 SI: GRAM NEGATIVE SEPSIS. E COLI UTI INTRACTABLE VOMITING 98.1 84 20 152/87 98% ON RA H/H-10.2/33.3 CO2+33 GLUCOSE+203 CA-8.1 MAG-1.7 ALB-2.8 IS: IVF@100/HR IV ROCEPHIN Q24 IV PROTONIX Q12 IV REGLAN Q6HRS LEVEMIR SQ QD LOTENSIN PO QD LEVEMIR SQ QHS : MED/SURG STATUS 4 [facility]; PATIENT IS FROM HOME PLAN: HOLDING DISCHARGE D/T EMESIS
[2020-04-03] MEDS: cefTRIAXone 1 GM in D5W 55 ML IVPB SCH (11:31)
[2020-04-03 11:40] VITALS: BP 90/87
[2020-04-03] MEDS: Tylenol #3 tab (300mg/30mg) ORAL PRN (12:07)
[2020-04-03 12:15] VITALS: BP 148/72
[2020-04-03 16:00] VITALS: BP 142/76
--- NOTE | 2020-04-03 16:42 | NUR ---
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
--- NOTE | 2020-04-03 19:41 | General Progress Note ---
Assessment/Plan Assessment/Plan: Assessment - Anemia, OB (-) stools - dysfunctional uterine bleeding - hypothyroid - UTI - GNR sepsis - DM Recommendations - BID PPI - QID reglan - follow labs Subjective Allergies: Coded Allergies: No Known Allergies (Verified , 09/02/07) Subjective Above noted seen this am doing better less N/V tolerating PO Objective Last 24 Hour Vital Signs Date Time Temp Pulse Resp B/P (MAP) Pulse Ox O2 Delivery O2 Flow Rate FiO2 04/03/20 16:00 97.2 82 20 142/76 (98) 98 04/03/20 12:15 148/72 (97) 04/03/20 11:40 97.5 88 20 90/87 (88) 98 04/03/20 08:40 Room Air 04/03/20 08:28 98.1 84 20 152/87 (108) 98 04/03/20 08:18 139/76 04/03/20 04:00 97.3 84 18 139/76 (97) 98 04/02/20 21:00 Room Air 04/02/20 20:00 96.1 88 20 152/84 (106) 96 Intake and Output 04/02/20 04/03/20 19:00 07:00 Intake Total 930 ml 1200 ml Output Total 20 ml Balance 930 ml 1180 ml Intake Oral 120 ml 300 ml IV Total 810 ml 900 ml Emesis 20 ml # Voids 3 2 Laboratory Tests 04/02/20 20:02: POC Whole Blood Glucose 139H 04/03/20 10:00: White Blood Count 8.4#, Red Blood Count 4.16L, Hemoglobin 10.2L, Hematocrit 33.3L, Mean Corpuscular Volume 80, Mean Corpuscular Hemoglobin 24.5L, Mean Corpuscular Hemoglobin Concent 30.5L, Red Cell Distribution Width 22.5H, Platelet Count 221, Mean Platelet Volume 6.7, Neutrophils (%) (Auto) 74.0, Lymphocytes (%) (Auto) 14.6L, Monocytes (%) (Auto) 9.6, Eosinophils (%) (Auto) 1.0, Basophils (%) (Auto) 0.8, Sodium Level 142, Potassium Level 3.6, Chloride Level 102, Carbon Dioxide Level 33H, Anion Gap 7, Blood Urea Nitrogen 10, Creatinine 1.0, Estimat Glomerular Filtration Rate > 60, Glucose Level 203H, Calcium Level 8.1L, Magnesium Level 1.7L, Total Bilirubin 0.4, Aspartate Amino Transf (AST/SGOT) 25, Alanine Aminotransferase (ALT/SGPT) 11L, Alkaline Phosphatase 101, Total Protein 7.8, Albumin 2.8L, Globulin 5.0, Albumin/ Globulin Ratio 0.6L 04/03/20 10:50: Lipase 161 Height (Feet): 4 Height (Inches): 11.00 Weight (Pounds): 112 Objective WDWN NCAT supple CTA RR Abd soft NT ND no edema Brooklynn Lucas MD Apr 03, 2020 19:41
--- NOTE | 2020-04-05 12:33 | NUR ---
*-* CASE MANAGEMENT NOTES *-* NO DISCHARGE SUMMARY IN THE SYSTEM UNABLE TO SUBMIT ETAR
--- NOTE | 2020-04-05 13:06 | Discharge Summary ---
Discharge Summary Discharge Summary _ DATE OF ADMISSION: 03/26/2020 DATE OF DISCHARGE: 04/03/2020 DISCHARGED BY: REASON FOR ADMISSION: 44 years old female with past medical history of hypothyroidism, acute myocardial infarction , precipitated by severe anemia, iron deficiency, type 2 diabetes mellitus, pulmonary hypertension, thickened endometrial lining noted in March 2019, history of dysfunctional uterine bleeding, was hospitalized with similar symptoms a year ago and was seen by a medication care manager , who recommended outpatient follow-up. Patient failed to follow-up with the recommendations. Patient reported increased shortness of breath and generalized weakness. Upon evaluation patient was hypotensive with blood pressure 89/58 , pulse oximetry was stable on room air. Laboratory work-up revealed hemoglobin 5.1, hematocrit 17.1. Troponin was negative, proBNP 1775. Patient typed and crossed and admitted for further management. Patient also received IV Pepcid and antiemetic in ED. CONSULTANTS: pulmonary Dr. Palmer ID specialist Dr. White GI specialist Dr. Lucas surgery Dr. Thomas HOSPITAL COURSE: Patient admitted to medical surgical floor. Patient was transfused with total of 2 units of packed red blood cells. Stool for occult blood was negative. Hemoglobin and hematocrit were closely monitored with goal to keep hemoglobin above 7 ; prior to discharge hemoglobin 10.2, hematocrit 33.3. Transvaginal and pelvic ultrasound demonstrated uterine fibroids, previously noted. Hypoechoic hypervascular cervical lesion, most likely represents a cervical fibroid, less likely a polyp. In any case was unchanged. Fluid-filled structure in the right adnexal region, most likely a loop of small bowel, hydrosalpinx less likely , but not excludable. Interim resolution of previously demonstrated left ovarian cyst. Patient was advised on outpatient follow-up with APPLIANCE SERVICE REPRESENTATIVE for further regular management. Supplemental oxygen provided and titrated to keep pulse oximetry above 92%. Echocardiogram demonstrated global left ventricular hypokinesis. Left ventricular ejection fraction estimated to be 40 to 45% with mild left ventricular hypertrophy. Significant left ventricular diastolic dysfunction grade 2. Right ventricular systolic pressure of 41 , consistent with a mild pulmonary hypertension. Volumes were closely monitored. Spot diuresis provided. Renal parameters and electrolytes were closely monitored. Electrolytes corrected as needed. Anti-failure regimen was maximized. Patient developed leukocytosis and fevers . Urine culture revealed E. coli. Blood culture revealed gram-negative rods. SARS COV2 by PCR came back not detected. Antibiotic provided as per ID recommendation. Leukocytosis and fevers resolved . Patient will need to complete antibiotics as outpatient as recommended by ID specialist. Patient was on PPI twice a day. Antiemetic were on board as needed. Patient was able to tolerate diet. Bowel regimen instituted. Insulin regimen titrated: blood sugar was managed with long-acting Levemir and sliding scale of insulin as needed. Diabetic diet and diabetic teaching provided. Patient noted to have elevated TSH of 34 and low free T4 and T3. Synthroid dose was uptitrated. Patient will need to repeat thyroid function test in 1 months. Protein supplements provided as per registered dietitian recommendation. CT of the abdomen and pelvis revealed fibroid in the lower uterine segment, measuring 2.9 x 2.6 cm , which may be further evaluated with pelvic ultrasound if symptomatic. It appeared more well circumscribed and hyperdense when compared to September. No small bowel obstruction or acute diverticulitis. Normal appendix. Cholelithiasis without gallbladder wall thickening, unchanged. Mild periportal edema, unchanged. Mild subcutaneous nodular density anterior to the right pelvis, located 6. 1 cm inferior to the umbilicus and 4.5 cm to the right of midline, measuring 1.9 x 1.4 cm. Finding was nonspecific and should be correlated with physical exam. LFT and bilirubin remained stable. Abdominal ultrasound demonstrated cholelithiasis and gallbladder sludge , no secondary signs of cholecystitis, no evidence of dilated bile ducts. Surgeon closely reviewed CAT scan. Patient reported abdominal pain , not consistent with cholecystitis as per surgeon . CT scan revealed no evidence of the gallbladder pathology. Potentially gastritis. Subcutaneous nodule was likely lipoma or prior fat necrosis from anticoagulation , seeming fairly benign and superficial. Surgeon cleared patient to start diet. Diet was started and advance as tolerated. Antiemetic were on board as needed. Patient was able to tolerate diet. No acute surgical intervention was necessarily at this time. Patient clinically stabilized and was ready for discharge home FINAL DIAGNOSES: Gram-negative sepsis E. coli UTI Severe anemia iron deficiency Dysfunctional uterine bleeding Hypothyroidism with elevated TSH Dehydration Type 2 diabetes mellitus Uterine fibroids Abdominal pain Dyspepsia Possible gastritis Acute on chronic diastolic and diastolic distal diastolic congestive heart failure Subcutaneous mass in the right pelvic region of unclear significance Electrolyte abnormality Noncompliance DISCHARGE MEDICATIONS: See Medication Reconciliation list. DISCHARGE INSTRUCTIONS: Patient was discharged home. Outpatient follow-up with a primary care provider in 1 week. Patient was strongly advised to follow-up with the APPLIANCE SERVICE REPRESENTATIVE as outpatient I have been assigned to dictate discharge summary for this account. I was not involved in the patient's management. Carmen Card NP Apr 05, 2020 13:06
== END 2020-04-03 16:40 | disposition home or self-care (01) | DRG 720 ==
LOC: EMR 17:49 → 2E 19:04 → EDBEDREQ 20:35 → 4E 03-28 18:11
PROC: 30233N1 Transfusion of Nonautologous Red Blood Cells into Peripheral Vein, Percutaneous Approach (ICD-10-PCS; principal; 2020-03-27)
DX: A41.50 Gram-negative sepsis, unspecified (principal); N93.8 Other specified abnormal uterine and vaginal bleeding; D50.0 Iron deficiency anemia secondary to blood loss (chronic); N39.0 Urinary tract infection, site not specified; I50.43 Acute on chronic combined systolic (congestive) and diastolic (congestive) heart failure; Z91.19 Patient's noncompliance with other medical treatment and regimen; E03.9 Hypothyroidism, unspecified; Z79.4 Long term (current) use of insulin; D25.9 Leiomyoma of uterus, unspecified; I25.2 Old myocardial infarction; E11.9 Type 2 diabetes mellitus without complications; B96.20 Unspecified Escherichia coli [E. coli] as the cause of diseases classified elsewhere; R22.2 Localized swelling, mass and lump, trunk; K80.20 Calculus of gallbladder without cholecystitis without obstruction; I42.9 Cardiomyopathy, unspecified; E86.0 Dehydration
CPT/HCPCS: 36415; 71045; 74177; 76700; 76830; 76856; 80048; 80053; 81003; 82270; 82550; 82728; 82962; 83615; 83690; 83735; 83880; 84439; 84443; 84481; 84484; 85007; 85025; 85610; 85730; 86140; 86850; 86870; 86900; 86901; 86904; 86920; 87040; 87086; 87181; 93005; 93306; 96361; 96374; 96375; 99291; J1815; J2405; J2765; J7030; J8499; S5561

== ENCOUNTER 2020-05-22 17:33 | Inpatient (IN) | payer MEDICAID ==
[~2020-05-22] VITALS: Ht 152.4 cm; Wt 47.3 kg
[2020-05-22 18:32] LABS: HEMATOCRIT 35.5 % (37.0-47.0); HEMOGLOBIN 11.4 G/DL (12.0-16.0); MEAN CORPUSCULAR VOLUME 95 FL (80-99); PLATELET COUNT 269 K/UL (150-450); RED BLOOD COUNT 3.75 M/UL (4.20-5.40); RED CELL DISTRIBUTION WIDTH 21.2 % (11.6-14.8)
[2020-05-22 18:33] LABS: BASOPHILS % (AUTO) 0.5 % (0.0-2.0); LYMPHOCYTES % (AUTO) 8.8 % (20.0-45.0); MONOCYTES % (AUTO) 2.3 % (1.0-10.0); NEUTROPHILS % (AUTO) 88.3 % (45.0-75.0)
[2020-05-22 18:50] LABS: ALANINE AMINOTRANSFERASE 26 U/L (12-78); ALBUMIN 3.4 G/DL (3.4-5.0); ALBUMIN/GLOBULIN RATIO 0.6 (1.0-2.7); ALKALINE PHOSPHATASE 159 U/L (46-116); ANION GAP 21 mmol/L (5-15); ASPARTATE AMINO TRANSFERASE 38 U/L (15-37); BILIRUBIN,TOTAL 0.7 MG/DL (0.2-1.0); BLOOD UREA NITROGEN 39 mg/dL (7-18); CALCIUM 9.7 MG/DL (8.5-10.1); CARBON DIOXIDE 21 MMOL/L (21-32); CHLORIDE 94 MMOL/L (98-107); CREATININE 1.5 MG/DL (0.55-1.30); SODIUM 136 MMOL/L (136-145)
[2020-05-22 19:00] VITALS: BP 149/95
[2020-05-22] MEDS ORDERED: Insulin Reg 100 units Premix 100 ML IV SCH (19:30)
--- NOTE | 2020-05-22 19:35 | Emergency Room Report ---
History of Present Illness General Chief Complaint: Abnormal Labs Source: Patient Present Illness HPI This patient has a history of insulin dependent diabetes. She also has a history of CVA and is G-tube dependent. She was brought in by her family, however, I was unable to speak with them before they left. The patient had complained of difficulty breathing. However, the chief complaint for the RN was elevated blood sugar. The patient is a very poor historian. She is well- known to [facility] as she has recurrent DKA and uncontrolled diabetes. She denies fever or chills. She denies nausea or vomiting. She denies cough or congestion. She denies abdominal pain. Allergies: Coded Allergies: No Known Allergies (Verified , 09/02/07) COVID-19 Screening Contact w/high risk pt: No Recent Travel to affected area: No Experienced COVID-19 symptoms?: No COVID-19 Testing performed [employer]ING [employer]AT CAPTAIN: No Patient History Past Medical History: see triage record, DM, HTN, GERD, CVA/TIA, seizures Social History: Denies: smoking, alcohol use, drug use Last Menstrual Period: unk Reviewed Nursing Documentation: PMH: Agreed; PSxH: Agreed Nursing Documentation-PMH Past Medical History: No History, Except For Hx Hypertension: Yes Hx Pacemaker: No Hx Asthma: No Hx COPD: No Hx Diabetes: Yes Hx Cancer: No Hx Gastrointestinal Problems: No Hx Dialysis: No Hx Neurological Problems: No Hx Cerebrovascular Accident: No Hx Transient Ischemic Attacks: No Hx Dementia: No Hx Alzheimer's Disease: No Hx Parkinson's Disease: No Hx Meningitis: No Hx Encephalitis: No Hx Seizures: Yes Hx Epilepsy: No Hx Multiple Sclerosis: No Hx Cerebral Palsy: No Hx Amyotrophic Lat Sclerosis: No Hx Guillian-Ideal Syndrome: No Hx Paralysis: No Hx Peripheral Neuropathy: No Hx Spinal Cord Injury: No Hx Head Trauma: Yes - Fell in the shower and hit her head one day prior to admission Hx Traumatic Brain Injury: No Hx Memory Loss: No Hx Concentration Difficulty: Yes Hx Speech Problem: No Hx Tremors: No Hx Vertigo: No Hx Dizziness: Yes Hx Syncope: No Hx Headaches: Yes Hx Aphasia: No Hx Dysphasia: No Hx Numbness: No Hx Weakness: No Hx Fatigue: Yes Hx Neurologic Surgery: No Hx Brain Shunt: No Review of Systems All Other Systems: negative except mentioned in HPI Physical Exam Vital Signs Date Time Temp Pulse Resp B/P (MAP) Pulse Ox O2 Delivery O2 Flow Rate FiO2 05/22/20 17:31 98.2 80 20 149/95 (113) 98 Room Air Sp02 EP Interpretation: reviewed, normal General Appearance: no apparent distress, alert, GCS 15, non-toxic Head: normocephalic, atraumatic Eyes: bilateral eye normal inspection, bilateral eye PERRL ENT: hearing grossly normal, normal pharynx, no angioedema, normal voice Neck: normal inspection, full range of motion, supple/symm/no masses Respiratory: chest non-tender, lungs clear, normal breath sounds, no respiratory distress, no retraction, no accessory muscle use, speaking full sentences Cardiovascular #1: regular rate, rhythm, no edema Gastrointestinal: normal bowel sounds, non tender, soft, non-distended, no guarding, no rebound, other - G-tube in place Rectal: deferred Musculoskeletal: back normal, normal range of motion, non-tender Neurologic: alert, oriented x3, responsive, speech normal, other - Hemiplegia ( at baseline) Psychiatric: judgement/insight normal, memory normal, mood/affect normal, no suicidal/homicidal ideation Skin: other - See RN skin exam Medical Decision Making Diagnostic Impression: Primary Impression: DKA Additional Impression: HANSEL (acute kidney injury) ER Course This patient is found to have mild DKA. Overall, the patient was nontoxic and stable. She was given aggressive IV fluids and started on an insulin drip. The patient's blood sugar slowly declining in the emergency department. She is admitted to the ICU for DKA. This patient is critically ill. This patient required complex medical decision- making, aggressive intervention, extensive laboratory workup and monitoring. Critical care time: 40 minutes. This patient was evaluated in the context of the global COVID-19 pandemic, which necessitated consideration that the patient might be at risk for infection with the [id number] virus that causes COVID-19. Institutional protocols and algorithms that pertain to the evaluation of patients at risk for COVID-19 and the state of rapid change based on information released by multiple regulatory bodies including the CDC and federal and state organizations. These policies and algorithms were followed during the patient' s care in the ED. Laboratory Tests Test 05/22/20 18:00 05/22/20 18:25 05/22/20 20:20 White Blood Count 11.0 K/UL (4.8-10.8) H Red Blood Count 3.75 M/UL (4.20-5.40) L Hemoglobin 11.4 G/DL (12.0-16.0) L Hematocrit 35.5 % (37.0-47.0) L Mean Corpuscular Volume 95 FL (80-99) Mean Corpuscular Hemoglobin 30.4 PG (27.0-31.0) Mean Corpuscular Hemoglobin Concent 32.1 G/DL (32.0-36.0) Red Cell Distribution Width 21.2 % (11.6-14.8) H Platelet Count 269 K/UL (150-450) Mean Platelet Volume 6.3 FL (6.5-10.1) L Neutrophils (%) (Auto) 88.3 % (45.0-75.0) H Lymphocytes (%) (Auto) 8.8 % (20.0-45.0) L Monocytes (%) (Auto) 2.3 % (1.0-10.0) Eosinophils (%) (Auto) 0.0 % (0.0-3.0) Basophils (%) (Auto) 0.5 % (0.0-2.0) Sodium Level 136 MMOL/L (136-145) Potassium Level 4.0 MMOL/L (3.5-5.1) Chloride Level 94 MMOL/L (98-107) L Carbon Dioxide Level 21 MMOL/L (21-32) Anion Gap 21 mmol/L (5-15) H Blood Urea Nitrogen 39 mg/dL (7-18) H Creatinine 1.5 MG/DL (0.55-1.30) H Estimated Glomerular Filtration Rate 37.4 mL/min (>60) Glucose Level 585 MG/DL (74-106) *H Calcium Level 9.7 MG/DL (8.5-10.1) Magnesium Level 2.5 MG/DL (1.8-2.4) H Total Bilirubin 0.7 MG/DL (0.2-1.0) Aspartate Amino Transferase (AST) 38 U/L (15-37) H Alanine Aminotransferase (ALT) 26 U/L (12-78) Alkaline Phosphatase 159 U/L (46-116) H Total Protein 9.1 G/DL (6.4-8.2) H Albumin 3.4 G/DL (3.4-5.0) Globulin 5.7 g/dL Albumin/Globulin Ratio 0.6 (1.0-2.7) L Acetone Level Positive-small (NEGATIVE) POC Whole Blood Glucose 545 MG/DL (74-106) *H Urine Color Pending Urine Appearance Pending Urine pH Pending Urine Specific [place] Pending Urine Protein Pending Urine Glucose (UA) Pending Urine Ketones Pending Urine Blood Pending Urine Nitrite Pending Urine Bilirubin Pending Urine Urobilinogen Pending Urine Leukocyte Esterase Pending EKG Diagnostic Results Rate: normal Rhythm: NSR ST Segments: no acute changes Other Impression LAFB Rhythm Strip Diag. Results EP Interpretation: yes Rate: 80's Rhythm: NSR, no PVC's, no ectopy Chest X-Ray Diagnostic Results Chest X-Ray Diagnostic Results : Chest X-Ray Ordered: Yes # of Views/Limited/Complete: 1 View Indication: Other EP Interpretation: Yes Interpretation: no consolidation, no effusion, no pneumothorax, no acute cardiopulmonary disease Impression: No acute disease Electronically Signed by: Ngozi Mcintyre DO Last Vital Signs Date Time Temp Pulse Resp B/P (MAP) Pulse Ox O2 Delivery O2 Flow Rate FiO2 05/22/20 17:31 98.2 80 20 149/95 (113) 98 Room Air Status: improved Disposition: ADMITTED INPATIENT Condition: Critical Referrals: NOT CHOSEN IPA/,REFERRING (PCP) Ngozi Mcintyre DO May 22, 2020 19:35
[2020-05-22] MEDS ORDERED: Insulin Reg 100 units Premix 100 ML IVPB SCH (19:45)
[2020-05-22 20:59] LABS: APPEARANCE,URINE CLEAR; COLOR,URINE YELLOW; KETONES,URINE 2+ (NEGATIVE); PROTEIN,URINE 2+ (NEGATIVE)
[2020-05-22 21:00] VITALS: BP 135/85
[2020-05-22 21:00] LABS: BILIRUBIN, URINE NEGATIVE (NEGATIVE); GLUCOSE, URINE (UA) 3+ (NEGATIVE); LEUKOCYTE ESTERASE ,URINE NEGATIVE (NEGATIVE); NITRITE,URINE NEGATIVE (NEGATIVE); UROBILINOGEN,URINE NORMAL MG/DL (0.0-1.0)
[2020-05-22 22:00] VITALS: BP 132/90
[2020-05-22] MEDS: Metoprolol Tartrate 12.5mg TAB ORAL SCH (22:54)
[2020-05-22] MEDS: Heparin 5000 units/ml inj SUBQ SCH (22:55)
[2020-05-22 23:00] VITALS: BP 152/65
[2020-05-22] MEDS: Levemir Flexpen SUBQ SCH (23:15)
[2020-05-23] VITALS (26 sets, daily range): BP systolic 99–159; BP diastolic 58–95
[2020-05-23] MEDS: NovoLOG Insulin Flexpen SUBQ SCH ×6 (00:49→20:35)
[2020-05-23 06:30] LABS: ALANINE AMINOTRANSFERASE 33 U/L (12-78); ALBUMIN 3.3 G/DL (3.4-5.0); ALBUMIN/GLOBULIN RATIO 0.6 (1.0-2.7); ALKALINE PHOSPHATASE 138 U/L (46-116); ANION GAP 12 mmol/L (5-15); ASPARTATE AMINO TRANSFERASE 26 U/L (15-37); BILIRUBIN,TOTAL 0.6 MG/DL (0.2-1.0); BLOOD UREA NITROGEN 26 mg/dL (7-18); CARBON DIOXIDE 27 MMOL/L (21-32); CHLORIDE 106 MMOL/L (98-107); CREATININE 1.2 MG/DL (0.55-1.30); POTASSIUM 2.8 MMOL/L (3.5-5.1); SODIUM 145 MMOL/L (136-145)
[2020-05-23] MEDS ORDERED: Levothyroxine 125mcg tab ORAL SCH (06:30)
[2020-05-23] MEDS: Metoprolol Tartrate 12.5mg TAB ORAL SCH ×2 (08:50→20:34)
[2020-05-23] MEDS: Heparin 5000 units/ml inj SUBQ SCH ×2 (08:52→20:35)
[2020-05-23] MEDS: Levemir Flexpen SUBQ SCH ×2 (08:53→20:40)
[2020-05-23] MEDS ORDERED: metFORMIN 500mg tab ORAL SCH (09:00)
--- NOTE | 2020-05-23 09:30 | History and Physical Report ---
DATE OF ADMISSION: 05/22/2020 CHIEF COMPLAINT: Diabetic ketoacidosis. HISTORY OF PRESENT ILLNESS: The patient is a 45-year-old female. She has a questionable history of cardiomyopathy and stroke. She has a G-tube that was placed because she refused to eat. She presented with complaints of chest pain and hyperglycemia. On evaluation in the emergency room, her sugar was over 500. She had ketones in her blood and she is now admitted to intensive care unit for treatment of possible diabetic ketoacidosis. PAST MEDICAL HISTORY: As above. PAST SURGICAL HISTORY: Includes a G-tube. CURRENT MEDICATIONS: Reconciled and reviewed. ALLERGIES: None. FAMILY HISTORY: None. SOCIAL HISTORY: Negative for tobacco, ethanol, or drugs. REVIEW OF SYSTEMS: Unobtainable as the patient is slightly confused. PHYSICAL EXAMINATION: VITAL SIGNS: Temperature 97, pulse 68, respirations 14, blood pressure 157/75. GENERAL: The patient is well developed, in no apparent distress. HEART: Regular rate and rhythm. LUNGS: Clear. ABDOMEN: Soft, nontender, and nondistended. EXTREMITIES: Without clubbing, cyanosis, or edema. SKIN: The patient has a G-tube that appears clean and intact. LABORATORY DATA: Sodium is 136, potassium 4, chloride 94, bicarb 21, BUN 39, creatinine 1.5. Glucose is 585. White count was 11, hemoglobin 11. UA was clear. ASSESSMENT: This is a 45-year-old female with questionable history of stroke, diabetes, and hypertension, admitted with diabetic ketoacidosis. PLAN: 1. Start feeds. 2. Continue frequent Accu-Cheks with sliding scale. 3. Cautious hydration. 4. Swallow evaluation. 5. Check a troponin. Rickie Santos M.D. DR: JUAN JOSÉ JOB#: [id number] CC:
--- NOTE | 2020-05-23 13:49 | Diagnostic Imaging Report ---
Indication: Shortness of breath Technique: One view of the chest Comparison: 03/26/2020 Findings: Lungs and pleural spaces are clear. Heart size is normal. No significant change Impression: No acute process
[2020-05-24] VITALS: BP 154/73
[2020-05-24] MEDS: NovoLOG Insulin Flexpen SUBQ SCH ×5 (00:48→17:00)
[2020-05-24 04:00] VITALS: BP 144/76
[2020-05-24] MEDS ORDERED: Levothyroxine 125mcg tab ORAL SCH (06:30)
[2020-05-24 08:00] VITALS: BP 159/88
[2020-05-24] MEDS ORDERED: Heparin 5000 units/ml inj SUBQ SCH (09:00)
[2020-05-24] MEDS ORDERED: Levemir Flexpen SUBQ SCH (09:00)
[2020-05-24] MEDS ORDERED: Metoprolol Tartrate 12.5mg TAB ORAL SCH (09:00)
[2020-05-24 09:46] LABS: BASOPHILS % (AUTO) 0.6 % (0.0-2.0); EOSINOPHILS % (AUTO) 0.5 % (0.0-3.0); HEMATOCRIT 36.5 % (37.0-47.0); LYMPHOCYTES % (AUTO) 16.5 % (20.0-45.0); MEAN CORPUSCULAR VOLUME 92 FL (80-99); MONOCYTES % (AUTO) 3.2 % (1.0-10.0); NEUTROPHILS % (AUTO) 79.2 % (45.0-75.0); PLATELET COUNT 258 K/UL (150-450); RED BLOOD COUNT 3.98 M/UL (4.20-5.40); RED CELL DISTRIBUTION WIDTH 20.7 % (11.6-14.8); WHITE BLOOD COUNT 7.3 K/UL (4.8-10.8)
[2020-05-24 10:06] LABS: ALANINE AMINOTRANSFERASE 22 U/L (12-78); ALBUMIN 2.8 G/DL (3.4-5.0); ALBUMIN/GLOBULIN RATIO 0.6 (1.0-2.7); ALKALINE PHOSPHATASE 128 U/L (46-116); ANION GAP 13 mmol/L (5-15); ASPARTATE AMINO TRANSFERASE 22 U/L (15-37); BILIRUBIN,TOTAL 0.6 MG/DL (0.2-1.0); BLOOD UREA NITROGEN 16 mg/dL (7-18); CALCIUM 8.3 MG/DL (8.5-10.1); CARBON DIOXIDE 23 MMOL/L (21-32); CHLORIDE 103 MMOL/L (98-107); CREATININE 1.1 MG/DL (0.55-1.30); POTASSIUM 3.7 MMOL/L (3.5-5.1); SODIUM 139 MMOL/L (136-145)
[2020-05-24 12:00] VITALS: BP 138/84
--- NOTE | 2020-05-24 14:41 | General Progress Note ---
Assessment/Plan Problem List: (1) Diabetes mellitus out of control ICD Codes: E11.65 - Diabetes mellitus out of control SNOMED: [id number] Status: stable Assessment/Plan: discharge planning Subjective ROS Limited/Unobtainable: No Constitutional: Reports: no symptoms HEENT: Reports: no symptoms Cardiovascular: Reports: no symptoms Respiratory: Reports: no symptoms Gastrointestinal/Abdominal: Reports: no symptoms Genitourinary: Reports: no symptoms Neurologic/Psychiatric: Reports: no symptoms Endocrine: Reports: no symptoms Hematologic/Lymphatic: Reports: no symptoms Allergies: Coded Allergies: No Known Allergies (Verified , 09/02/07) All Systems: reviewed and negative except above Subjective no events. gap closed. blood sugars better. Objective Last 24 Hour Vital Signs Date Time Temp Pulse Resp B/P (MAP) Pulse Ox O2 Delivery O2 Flow Rate FiO2 05/24/20 12:00 98.4 64 16 138/84 (102) 96 05/24/20 12:00 66 05/24/20 12:00 Room Air 05/24/20 09:04 75 159/88 05/24/20 08:00 Room Air 05/24/20 08:00 98.2 75 16 159/88 (111) 98 05/24/20 07:43 82 05/24/20 04:00 Room Air 05/24/20 04:00 98.1 68 16 144/76 (98) 98 05/24/20 03:21 66 05/24/20 00:00 Room Air 05/24/20 00:00 98.2 70 18 154/73 (100) 100 05/23/20 23:34 66 05/23/20 22:53 98.2 68 12 159/87 (111) 100 05/23/20 21:30 67 14 155/75 (101) 98 05/23/20 21:00 68 0 144/70 (94) 100 05/23/20 20:34 70 148/58 05/23/20 20:30 70 13 148/58 (88) 93 05/23/20 20:00 72 05/23/20 20:00 98.0 68 7 150/72 (98) 100 05/23/20 20:00 Room Air 05/23/20 18:00 70 12 154/77 (102) 100 05/23/20 17:00 68 10 142/66 (91) 99 05/23/20 16:00 69 05/23/20 16:00 Room Air 05/23/20 16:00 98.4 66 12 123/69 (87) 99 05/23/20 15:00 63 20 129/73 (91) 100 Intake and Output 05/23/20 05/24/20 19:00 07:00 Intake Total 2290 ml 1456.25 ml Output Total 750 ml 60 ml Balance 1540 ml 1396.25 ml Intake Oral 840 ml Free Water 200 ml 60 ml IV Total 1000 ml 1206.25 ml Tube Feeding 190 ml 190 ml Other 60 ml Output Urine Total 500 ml 60 ml Emesis 250 ml # Bowel Movements 1 2 Laboratory Tests 05/23/20 16:16: POC Whole Blood Glucose 89 05/24/20 00:45: POC Whole Blood Glucose [Pending] 05/24/20 04:37: POC Whole Blood Glucose [Pending] 05/24/20 08:55: POC Whole Blood Glucose [Pending] 05/24/20 09:30: White Blood Count 7.3, Red Blood Count 3.98L, Hemoglobin 12.0, Hematocrit 36.5L , Mean Corpuscular Volume 92, Mean Corpuscular Hemoglobin 30.2, Mean Corpuscular Hemoglobin Concent 32.9, Red Cell Distribution Width 20.7H, Platelet Count 258, Mean Platelet Volume 6.0L, Neutrophils (%) (Auto) 79.2H, Lymphocytes (%) (Auto) 16.5L, Monocytes (%) (Auto) 3.2, Eosinophils (%) (Auto) 0.5, Basophils (%) (Auto) 0.6, Sodium Level 139, Potassium Level 3.7, Chloride Level 103, Carbon Dioxide Level 23, Anion Gap 13, Blood Urea Nitrogen 16, Creatinine 1.1, Estimat Glomerular Filtration Rate 53.5, Glucose Level 346#H, Calcium Level 8.3L, Total Bilirubin 0.6, Aspartate Amino Transf (AST/SGOT) 22, Alanine Aminotransferase (ALT/SGPT) 22, Alkaline Phosphatase 128H, Total Protein 7.8, Albumin 2.8L, Globulin 5.0, Albumin/Globulin Ratio 0.6L 05/24/20 12:00: POC Whole Blood Glucose 212H Height (Feet): 5 Height (Inches): 0.00 Weight (Pounds): 104 General Appearance: WD/WN, alert Neck: supple Cardiovascular: regular rhythm Respiratory/Chest: lungs clear, normal breath sounds Abdomen: normal bowel sounds, non tender, soft Edema: no edema noted Arm (L), no edema noted Arm (R) Neurologic: alert, oriented x 3 Rickie Santos MD May 24, 2020 14:41
[2020-05-24 16:00] VITALS: BP 129/84
--- NOTE | 2020-05-26 13:56 | Discharge Summary ---
Discharge Summary Discharge Summary _ DATE OF ADMISSION: 05/22/2020 DATE OF DISCHARGE: 05/24/2020 DISCHARGED BY: Dr. Rickie Santos BRIEF HOSPITAL COURSE: The patient is a 45-year-old female. She has questionable history of cardiomyopathy and stroke. She has a G-tube that was placed because she refused to eat. She presented to ED with complaints of chest pain and hyperglycemia. Upon evaluation in ED, vital signs were stable. Blood work showed WBC of 11. Hemoglobin and hematocrit stable. Electrolytes normal. Anion gap 21. Glucose level 585. Acetone level positive. EKG was in normal sinus rhythm with no acute changes. Chest x-ray did not show any acute disease. Patient was found to have mild DKA. She was given aggressive IV fluid and was started on insulin drip. Patient's blood sugar was slowly declining in the ED. She was admitted to ICU for DKA. She was continued on insulin drip. Blood glucose closely monitored. Glucose level downtrending. She was eventually started on diabetic diet. alf medications were resumed. Anion gap closed. Glucose with better control. Insulin drip was discontinued. She was given Levemir and NovoLog. She was downgraded to stepdown unit. Patient was eventually cleared for discharge home. FINAL DIAGNOSES: Diabetes mellitus [id number]. Diabetic ketoacidosis DISPOSITION: Patient was discharged home. DISCHARGE MEDICATIONS: Refer to Discharge Medication List. DISCHARGE INSTRUCTIONS: Follow-up in a week. I have been assigned to complete a discharge summary on this account, I was not involved with the patient's management.--SYLVESTER Brown Jacqueline Robles NP May 26, 2020 13:56
== END 2020-05-24 18:00 | disposition home or self-care (01) | DRG 420 ==
LOC: EDBD 17:33 → EMR 17:50 → ICU 19:22 → EDBEDREQ 20:14 → 2W 05-23 22:04
DX: E11.10 Type 2 diabetes mellitus with ketoacidosis without coma (principal); I10 Essential (primary) hypertension; Z86.73 Personal history of transient ischemic attack (TIA), and cerebral infarction without residual deficits; E11.65 Type 2 diabetes mellitus with hyperglycemia; Z43.1 Encounter for attention to gastrostomy
CPT/HCPCS: 36415; 71045; 80053; 81003; 82009; 82962; 83036; 83735; 84484; 85025; 87081; 93005; 93306; 96361; 96365; 96375; 99291; J1815; J2405; J7030; J8499; S5561; U0002